=== PATIENT | female | born 1955 | race Caucasian/White ===

== ENCOUNTER 2017-07-21 20:27 | Inpatient (IN) | payer OTHER ==
[~2017-07-21] VITALS: Ht 167.6 cm; Wt 108.0 kg
[~2017-07-21 20:27] MED LIST: ALLGUNK; CNCUNK; HYDUNK; MULT-506 PO
[2017-07-21] MEDS ORDERED: SODIUM CHLORIDE 0.9% 1000ML 500 ML IV STA (20:46)
[2017-07-21] MEDS ORDERED: DILTIAZEM BOLUS / DRIP IV STA (20:46)
--- NOTE | 2017-07-21 20:49 | EMERGENCY ROOM VISIT NOTE ---
History Report prepared by Devendra: Sparkle Mccrary Under the Supervision of: Dr. Shamir Padilla M.D. First contact with patient: 20:39 Chief Complaint: SHORTNESS OF BREATH Stated Complaint: SOB AFIB History of Present Illness The patient is a 61 year old female who presents to the Emergency Room with complaints of worsening shortness of breath for the past [address] Shipman, her PCP, for her symptoms today, and was referred to the ED for possible new onset atrial fibrillation. She denies any palpitations or chest pain. She has experienced increased weakness, nausea and diaphoresis. She does not take a daily blood thinner. She does not follow regularly with Cardiology but believes she saw a Physical Education Department Chair several years ago. Source of History: patient Onset: 1 month [employer]OUND [employer] Position: chest Timing: worsening Associated Symptoms: + diaphoresis, + nausea, + weakness, No chest pain Review of Systems See HPI for pertinent positives & negatives. A total of 10 systems reviewed and were otherwise negative. Past Medical & Surgical Medical Problems: (1) Afib (2) Environmental allergies Social History Smoking Status: Former Smoker Alcohol Use: none Drug Use: none Marital Status: single Housing Status: lives alone Occupation Status: retired Current/Historical Medications Scheduled Atorvastatin (Lipitor), 40 MG PO QPM Cholecalciferol (Vitamin D), 400 UNITS PO DAILY Fluticasone Propionate (Inhala (Flovent Diskus), 2 PUFFS INH BID Meloxicam (Mobic), 15 MG PO DAILY Methylphenidate (Ritalin), 5 MG PO BID Montelukast Sodium (Singulair), 10 MG PO DAILY Multivitamins/Minerals (Mvi With Minerals), 1 TAB PO DAILY Propranolol Hcl (Propranolol Hcl), 1 TAB PO DAILY Sertraline (Zoloft), 100 MG PO DAILY Vitamin E (E-400), 400 UNITS DAILY Scheduled PRN Albuterol Hfa (Ventolin Hfa), 2 PUFFS INH Q4 PRN for SOB/Wheezing Allergies Coded Allergies: Latex (Verified Allergy, Mild, RASH, 07/21/17) Aspirin (Verified Allergy, Unknown, 09/06/10) Erythromycin (Verified Allergy, Unknown, 09/06/10) Sulfa Drugs (Verified Allergy, Unknown, 09/06/10) Physical Exam Vital Signs Date Time Temp Pulse Resp B/P (MAP) Pulse Ox O2 Delivery O2 Flow Rate FiO2 5/22/18 00:21 86 18 135/72 93 Room Air 07/21/17 22:50 75 18 114/76 95 Room Air 07/21/17 21:48 83 20 127/79 95 Room Air 07/21/17 21:40 84 20 145/100 95 Room Air 07/21/17 21:30 116 20 138/110 94 Room Air 07/21/17 20:52 116 20 167/125 97 Room Air 07/21/17 20:47 123 07/21/17 20:31 36.4 120 20 191/123 91 Room Air Physical Exam GENERAL: Patient is in no acute distress. HEENT: No acute trauma, normocephalic atraumatic, mucous membranes moist, no nasal congestion, no scleral icterus. NECK: No stridor, no adenopathy, no meningismus, trachea is midline. LUNGS: Clear to auscultation bilaterally, no wheeze, no rhonchi, breath sounds equal. HEART: Tachycardic heart rate, irregular rhythm, no murmurs ABDOMEN: Soft, nontender, bowel sounds positive, no hernias, no peritonitis. EXTREMITIES: No cyanosis or edema, full range of motion of all the joints without pain or difficulty, no signs for acute trauma. NEUROLOGIC: Oriented x 3, no acute motor or sensory deficits, no focal weakness. SKIN: No rash, no jaundice, no diaphoresis. Medical Decision & Procedures ER Provider Diagnostic Interpretation: Radiology results as stated below per my review and radiologist interpretation: CHEST ONE VIEW PORTABLE HISTORY: 61 years-old Female EVALUATE RESPIRATORY DISTRESS.DYSPNEA acute respiratory distress COMPARISON: None available TECHNIQUE: Portable AP view of the chest. FINDINGS: The cardiac silhouette is within the upper limits of normal in size. Atherosclerosis of the aorta. There is no pneumothorax, pleural effusion, focal airspace consolidation or overt pulmonary edema. The bones of the chest appear grossly intact. IMPRESSION: No acute process. The above report was generated using voice recognition software. It may contain grammatical, syntax or spelling errors. Electronically signed by: Harley Garcia M.D. 07/21/2017 9:07 PM Laboratory Results 07/21/17 20:55 Red Blood Count 5.00, Mean Corpuscular Volume 90.8, Mean Corpuscular Hemoglobin 30.0, Mean Corpuscular Hemoglobin Concent 33.0, Mean Platelet Volume 9.5, Neutrophils (%) (Auto) 70.1, Lymphocytes (%) (Auto) 18.6, Monocytes (%) (Auto) 8.4, Eosinophils (%) (Auto) 2.1, Basophils (%) (Auto) 0.4, Neutrophils # (Auto) 6.39, Lymphocytes # (Auto) 1.70, Monocytes # (Auto) 0.77, Eosinophils # (Auto) 0.19, Basophils # (Auto) 0.04 07/21/17 20:55 Test 07/21/17 20:55 07/21/17 21:50 07/22/17 00:25 07/22/17 00:53 White Blood Count 9.13 K/uL (4.8-10.8) Red Blood Count 5.00 M/uL (4.2-5.4) Hemoglobin 15.0 g/dL (12.0-16.0) Hematocrit 45.4 % (37-47) Mean Corpuscular Volume 90.8 fL (80-100) Mean Corpuscular Hemoglobin 30.0 pg (25-34) Mean Corpuscular Hemoglobin Concent 33.0 g/dl (32-36) Platelet Count 269 K/uL (130-400) Mean Platelet Volume 9.5 fL (7.4-10.4) Neutrophils (%) (Auto) 70.1 % Lymphocytes (%) (Auto) 18.6 % Monocytes (%) (Auto) 8.4 % Eosinophils (%) (Auto) 2.1 % Basophils (%) (Auto) 0.4 % Neutrophils # (Auto) 6.39 K/uL (1.4-6.5) Lymphocytes # (Auto) 1.70 K/uL (1.2-3.4) Monocytes # (Auto) 0.77 K/uL (0.11-0.59) Eosinophils # (Auto) 0.19 K/uL (0-0.5) Basophils # (Auto) 0.04 K/uL (0-0.2) RDW Standard Deviation 51.0 fL (36.4-46.3) RDW Coefficient of Variation 15.4 % (11.5-14.5) Immature Granulocyte % (Auto) 0.4 % Immature Granulocyte # (Auto) 0.04 K/uL (0.00-0.02) Anion Gap 7.0 mmol/L (3-11) Est Creatinine Clear Calc Drug Dose 88.2 ml/min Estimated GFR () 86.3 Estimated GFR (Non- 74.5 BUN/Creatinine Ratio 28.9 (10-20) Calcium Level 8.7 mg/dl (8.5-10.1) Magnesium Level 2.2 mg/dl (1.8-2.4) Total Bilirubin 0.5 mg/dl (0.2-1) Aspartate Amino Transf (AST/SGOT) 21 U/L (15-37) Alanine Aminotransferase (ALT/SGPT) 21 U/L (12-78) Alkaline Phosphatase 60 U/L (45-117) Troponin I < 0.015 ng/ml (0-0.045) Total Protein 7.7 gm/dl (6.4-8.2) Albumin 3.8 gm/dl (3.4-5.0) Globulin 3.9 gm/dl (2.5-4.0) Albumin/Globulin Ratio 1.0 (0.9-2) Thyroid Stimulating Hormone (TSH) 2.130 uIu/ml (0.300-4.500) Chemistry Specimen Hemolysis Prothrombin Time 10.4 SECONDS (9.0-12.0) Prothromb Time International Ratio 1.0 (0.9-1.1) Activated Partial Thromboplast Time 25.5 SECONDS (21.0-31.0) Partial Thromboplastin Ratio 1.0 D-Dimer 670 ug/L FEU (0-500) Urine Color YELLOW Urine Appearance CLEAR (CLEAR) Urine pH 5.0 (4.5-7.5) Urine Specific Keavy 1.020 (1.000-1.030) Urine Protein NEG (NEG) Urine Glucose (UA) NEG (NEG) Urine Ketones NEG (NEG) Urine Occult Blood NEG (NEG) Urine Nitrite NEG (NEG) Urine Bilirubin NEG (NEG) Urine Urobilinogen NEG (NEG) Urine Leukocyte Esterase TRACE (NEG) Urine WBC (Auto) 1-5 /hpf (0-5) Urine RBC (Auto) 0-4 /hpf (0-4) Urine Hyaline Casts (Auto) 1-5 /lpf (0-5) Urine Epithelial Cells (Auto) 10-20 /lpf (0-5) Urine Bacteria (Auto) NEG (NEG) Laboratory results reviewed by me. Medications Administered Medications (Trade) Dose Ordered Sig/Inderjit Route Start Time Stop Time Status Last Admin Dose Admin Sodium Chloride 500 ml @ 999 mls/hr Q31M STAT IV 07/21/17 20:46 07/21/17 21:16 DC 07/21/17 20:46 999 MLS/HR Diltiazem HCl (Cardizem Inj) 15 mg TODAY@2100 IV 07/21/17 21:00 07/21/17 23:59 DC 07/21/17 21:26 15 MG Diltiazem HCl 125 mg/Dextrose 125 ml @ 5 mls/hr Q24H PRN IV 07/21/17 21:00 07/22/17 00:57 DC 07/21/17 21:26 5 MLS/HR ECG Per My Interpretation Indication: SOB/dyspnea Rate (beats per minute): 114 Rhythm: atrial fibrillation (with RVR) Findings: no ectopy, other (No ST elevation, no PVC) ED Course 2041: The patient was evaluated in room C7. A complete history and physical exam was performed. 2045: NSS 500 ml @ 999 mls/hr IV. 2099: Diltiazem HCl 125 mg/Dextrose 125 ml @ 5 mls/hr IV, Cardizem 15 mg IV. 2144: I reevaluated the patient. She is feeling well and resting comfortably. 2153: I discussed the patients case with Dr. Obrien, [facility] Hospitalist. The patient will be further evaluated. Medical Decision The differential diagnoses considered include atrial fibrillation or atrial flutter, SVT, electrolyte imbalance, thyroid disorder, anemia and [place]. There is no leukocytosis or concerning anemia. No significant electrolyte abnormality, kidney failure or hepatitis. There is no coagulopathy. The patient appears to be in a euthyroid state. EKG shows a rapid A. fib, no acute ischemic change. Cardiac enzyme testing 1 is not consistent with acute cardiac injury. Urinalysis does not show infection. Chest film shows some cardiomegaly, no pneumonia or CHF. The patient presents in a rapid A. fib. She was given an IV saline bolus. She was given IV diltiazem and placed on an IV diltiazem drip. This regimen worked nicely. The patient feels better and her heart rate is now in the 80s- 90s. Hospitalization is required, further workup is warranted. I did speak to the patient and case management. The on-call hospitalist was consulted. Medication Reconcilliation Current Medication List: was personally reviewed by me Blood Pressure Screening Patient's blood pressure: Elevated blood pressure Blood pressure disposition: Referred to PCP (The patients elevated blood pressure will be further managed by the inpatient hospital medicine team) Consults Time Called: 2153 Consulting Physician: Ban Omalley [facility] Returned Call: 2153 I discussed the patients case with Ban Omalley. The patient will be further evaluated. Impression Primary Impression: Rapid atrial fibrillation Additional Impression: Shortness of breath Critical Care I have personally spent greater than 30 minutes of critical care time in the direct management of this patient. This includes bedside care, interpretation of diagnostic studies and testing, discussion with consultants, the patient, and family members, and other required patient management activities. This 30 minutes is in excess of all separately billable procedures. Scribe Attestation The scribe's documentation has been prepared under my direction and personally reviewed by me in its entirety. I confirm that the note above accurately reflects all work, treatment, procedures, and medical decision making performed by me. Departure Information Dispostion Being Evaluated By Hospitalist Referrals Queenie Shipman D.O. (PCP) Patient Instructions My [facility] Problem Qualifiers
[2017-07-21] MEDS ORDERED: DILTIAZEM HCL 5 MG/ML 5 ML VIAL BOLUS/OMNI IV SCH (21:00)
[2017-07-21] MEDS ORDERED: DILTIAZEM HCL INJ 125 MG in DEXTROSE 5% 100ML IV PRN (21:00)
--- NOTE | 2017-07-21 21:08 | DIAGNOSTIC IMAGING REPORT ---
CHEST ONE VIEW PORTABLE HISTORY: 61 years-old Female EVALUATE RESPIRATORY DISTRESS.DYSPNEA acute respiratory distress COMPARISON: None available TECHNIQUE: Portable AP view of the chest. FINDINGS: The cardiac silhouette is within the upper limits of normal in size. Atherosclerosis of the aorta. There is no pneumothorax, pleural effusion, focal airspace consolidation or overt pulmonary edema. The bones of the chest appear grossly intact. IMPRESSION: No acute process. The above report was generated using voice recognition software. It may contain grammatical, syntax or spelling errors. Electronically signed by: Harley Garcia M.D. 07/21/2017 9:07 PM Dictated Date/Time: 07/21/2017 9:05 PM
[2017-07-21 21:10] LABS: BASO % 0.4 %; BASO ABS # 0.04 K/uL (0-0.2); EOS % 2.1 %; EOS ABS # 0.19 K/uL (0-0.5); HEMATOCRIT 45.4 % (37-47); IG# 0.04 K/uL (0.00-0.02); LYMPH % 18.6 %; MEAN CELL VOLUME 90.8 fL (80-100); MEAN PLATELET VOLUME 9.5 fL (7.4-10.4); MONO % 8.4 %; MONO ABS # 0.77 K/uL (0.11-0.59); NEUT % 70.1 %; NEUT ABS # 6.39 K/uL (1.4-6.5); PLATELET COUNT 269 K/uL (130-400); RED CELL DISTRIBUTION WIDTH CV 15.4 % (11.5-14.5); WHITE BLOOD COUNT 9.13 K/uL (4.8-10.8)
[2017-07-21 21:38] LABS: ALBUMIN 3.8 gm/dl (3.4-5.0); ALT/SGPT 21 U/L (12-78); AST/SGOT 21 U/L (15-37); BLOOD UREA NITROGEN 24 mg/dl (7-18); CALCIUM 8.7 mg/dl (8.5-10.1); CARBON DIOXIDE 26 mmol/L (21-32); CREATININE 0.84 mg/dl (0.60-1.20); GLUCOSE 124 mg/dl (70-99); POTASSIUM 4.5 mmol/L (3.5-5.1); SODIUM 139 mmol/L (136-145)
[2017-07-21 21:40] LABS: ALKALINE PHOSPHATASE 60 U/L (45-117); TOTAL PROTEIN 7.7 gm/dl (6.4-8.2)
[2017-07-21] MEDS ORDERED: VITACAP37 (22:09)
[2017-07-21] MEDS ORDERED: MONT1TAB3 PO (22:09)
[2017-07-21] MEDS ORDERED: MULT-513 PO (22:09)
[2017-07-21] MEDS ORDERED: FLUT1AER5 INH (22:09)
[2017-07-21] MEDS ORDERED: SERT-234 PO (22:09)
[2017-07-21] MEDS ORDERED: ATOR-24 PO (22:09)
[2017-07-21] MEDS ORDERED: MELO-84 PO (22:09)
[2017-07-21] MEDS ORDERED: VNTHFA/IN INH (22:09)
[2017-07-21] MEDS ORDERED: CHOL400T PO (22:09)
[2017-07-21] MEDS ORDERED: METH5TAB4 PO (22:09)
[2017-07-21] MEDS ORDERED: PROP40TA5 PO (22:09)
[2017-07-21 22:20] LABS: PTT PATIENT 25.5 SECONDS (21.0-31.0)
[2017-07-21] MEDS ORDERED: OPTIRAY 320 IV PRN (23:30)
[2017-07-22] VITALS (10 sets, daily range): BP systolic 130–173; BP diastolic 86–112; PULSE 89–118; TEMP 36.6–36.7; O2SAT 93–97; BMI 38.7
[2017-07-22] MEDS ORDERED: METOPROLOL SUCC 25MG EXT REL TAB PO ONE ×2 (00:55→09:45)
[2017-07-22] MEDS ORDERED: LORAZEPAM 2 MG/ML 1 ML VIAL IV PRN (01:00)
[2017-07-22] MEDS ORDERED: MoRPHine SULFATE 4 MG/ML 1 ML CARP\\VIAL IV PRN (01:00)
[2017-07-22] MEDS ORDERED: TRAMADOL HCL 50 MG TAB PO PRN (01:00)
[2017-07-22] MEDS ORDERED: PROCHLORPERAZINE INJ 5 MG in SYRINGE 4 ML IV PRN (01:00)
[2017-07-22] MEDS ORDERED: NITROGLYCERIN 0.4 MG SL PER TAB CHARGE SL PRN (01:00)
[2017-07-22] MEDS ORDERED: HEPARIN 25000 UNIT/500 ML D5W ONE (01:05)
[2017-07-22] MEDS ORDERED: METOPROLOL SUCC 50MG EXT REL TAB ONE (01:11)
[2017-07-22] MEDS: HEPARIN 25,000 UNIT/500ML D5W 500 ML IV SCH ×2 (01:45→17:18)
[2017-07-22] MEDS: SODIUM CHLORIDE 0.9% 1000ML 1,000 ML IV SCH ×2 (02:03→17:13)
[2017-07-22 04:27] LABS: BASO % 0.2 %; BASO ABS # 0.02 K/uL (0-0.2); EOS % 2.2 %; EOS ABS # 0.18 K/uL (0-0.5); HEMATOCRIT 44.3 % (37-47); HEMOGLOBIN 14.3 g/dL (12.0-16.0); IG# 0.01 K/uL (0.00-0.02); LYMPH % 22.9 %; LYMPH ABS # 1.87 K/uL (1.2-3.4); MEAN CELL VOLUME 92.5 fL (80-100); MEAN CORPUSCULAR HEMOGLOBIN 29.9 pg (25-34); MEAN CORPUSCULAR HGB CONC 32.3 g/dl (32-36); MEAN PLATELET VOLUME 10.3 fL (7.4-10.4); MONO % 8.4 %; MONO ABS # 0.69 K/uL (0.11-0.59); NEUT % 66.2 %; NEUT ABS # 5.41 K/uL (1.4-6.5); PLATELET COUNT 227 K/uL (130-400); RED CELL DISTRIBUTION WIDTH CV 15.4 % (11.5-14.5); RED CELL DISTRIBUTION WIDTH SD 52.4 fL (36.4-46.3); WHITE BLOOD COUNT 8.18 K/uL (4.8-10.8)
--- NOTE | 2017-07-22 04:35 | HISTORY & PHYSICAL EXAMINATION ---
DATE OF ADMISSION: 07/22/2017 PRIMARY CARE PHYSICIAN: Queenie Shipman DO CHIEF COMPLAINT: Shortness of breath. HISTORY OF PRESENT ILLNESS: History obtained from patient and records. Medical history significant for hypertension, past tobacco abuse, history of mitral regurgitation, hyperlipidemia, migraine as per records, history of HCV status post treatment, attention deficit disorder, LILI as per records. Last month, patient noted shortness of breath especially on exertion. Denies weight gain. Denies chest pain. some wheezing, which attributes to possible smoker's cough. Loose stools today. No abdominal pain. Seen at PCP's office today for an appointment. EKG done showed atrial fibrillation. Patient was sent to the Emergency Room. At the Emergency Room, heart rate noted to be 120s. IV Cardizem started in the ER. MEDICAL HISTORY: As above. PREVIOUS SURGERIES: She has had appendectomy, breast biopsy, ovarian cyst surgery. HOME MEDICATIONS: Propranolol, Lipitor, Flovent, Mobic, Singulair, Ritalin, multivitamins, Zoloft ALLERGIES: ASPIRIN, ERYTHROMYCIN, LATEX, SULFA. FAMILY HISTORY: Blood clots, migraine, history of breast cancer PERSONAL AND SOCIAL HISTORY: Past smoker. No chronic intake of alcoholic beverages. 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 REVIEW OF SYSTEMS: As per HPI, all 10 systems reviewed, all other ROS negative. PHYSICAL EXAMINATION: VITAL SIGNS: Blood pressure was noted to be 191/120, later 130/80, pulse rate 120 later 84, RR 26 T 37 O2 sats 95 on room air. GENERAL: Noted to be slightly anxious, no respiratory distress, obese. SKIN: Normal color, warm. HEENT: [place] palpebral conjunctivae. No ptosis. Dry mucosa. NECK: Short, supple. CHEST: Decreased breath sounds. Occasional wheeze . HEART: irregular, systolic murmur. ABDOMEN: Some distention, nontender. EXTREMITIES: No edema noted. No tenderness. No gross deformity. NEUROLOGIC: Coherent, no gross focality. LABORATORIES: Hemoglobin was noted to be 15, white blood cells 10 platelets 240. Sodium 136 potassium 3.8, chloride 106, CO2 26, BUN 20, creatinine 0.8, glucose 134. Troponin negative CT chest initial read no pulmonary embolism. EKG as per my interpretation, rate 115, AFib, RVR, right axis deviation, LFPB, no ischemia . ASSESSMENT: 1. SOB symptoms for 1 month Possibly from new onset atrial fibrillation possibly from uncontrolled high blood pressure. Rule out COPD w/ intermittent wheezing symptoms, past tobacco abuse. 2. Hyperglycemia ro DM. 3. HCV sp tx 4. LILI/CPAP noncompliance . 5. Diarrhea rule out C. difficile 6. ADHD on Ritalin PLAN: PCU. Metoprolol to replace patient's propranolol (for migraine prophylaxis) for rate control IV heparin for thromboembolic prophylaxis. TTE, Cardio consult RE new onset afib. Outpatient PFTs Check hemoglobin A1c stool cdif DVT prophylaxis, IV Heparin. Full code. MTDD
[2017-07-22 04:57] LABS: BLOOD UREA NITROGEN 22 mg/dl (7-18); CALCIUM 8.5 mg/dl (8.5-10.1); CARBON DIOXIDE 30 mmol/L (21-32); CREATININE 0.84 mg/dl (0.60-1.20); GLUCOSE 110 mg/dl (70-99); SODIUM 140 mmol/L (136-145)
[2017-07-22 07:30] LABS: PTT PATIENT 57.5 SECONDS (21.0-31.0)
--- NOTE | 2017-07-22 07:36 | DIAGNOSTIC IMAGING REPORT ---
CHEST CTA for PULMONARY ARTERIES CT DOSE: 718.24 mGy.cm HISTORY: Fatigue. Atrial fibrillation. TECHNIQUE: Multiaxial CT images of the chest were performed following the intravenous administration of contrast to evaluate the pulmonary arteries. Maximal intensity projection images were also obtained. A dose lowering technique was utilized adhering to the principles of ALARA. COMPARISON STUDY: None. FINDINGS: No pleural or pericardial effusions. The heart is mildly enlarged. Normal caliber thoracic aorta. No evidence for aortic dissection. Of note, the descending thoracic ureter is not well opacified to evaluate for a dissection. No filling defects within the pulmonary arteries to suggest pulmonary embolus. Probably calcified 12 mm nodule within the left thyroid lobe. No mediastinal or hilar lymphadenopathy. Mild diffuse thickening of the esophagus. This favors a mild esophagitis. The visualized liver, spleen, and adrenal glands are unremarkable. No fractures. No pneumothorax. The central airways are patent. Mild emphysema. Linear densities within the lingula favor subsegmental atelectasis. Tiny fat-containing left-sided Bochdalek hernia. A 5 mm right lower lobe pulmonary nodule on image 40. No focal lung consolidations to suggest pneumonia. IMPRESSION: 1. No evidence for pulmonary embolus. 2. Mild emphysema. 3. Cardiomegaly. 4. Mild thickening of the esophagus suggestive of a nonspecific esophagitis. 5. A 5 mm right lower lobe indeterminate pulmonary nodule. Please refer to the chart below. Please refer to below summary of Fleischner criteria recommendations for follow-up of incidental CT nodules (Delisa Tucker, Guidelines for management of small pulmonary nodules detected on CT scans: A statement from the Fleischner Society, Radiology 237: [phone].) SOLID NODULES Solitary nodule size: <6 mm * Low risk patients: no follow-up needed * high risk patients: optional CT at 12 months Solitary nodule size: 6-8 mm * Low risk patients: follow-up at 6-12 months, then consider further follow-up at 18-24 months * high risk patients: initial follow-up CT at 6-12 months and then at 18-24 months if no change Solitary nodule size: >8 mm * either low or high risk patients - consider follow-up CT at 3 months, and/or CT-PET, and/or biopsy Multiple nodules size: <6 mm * Low risk patients: no routine follow-up * high risk patients: optional CT at 12 months Multiple nodules size: 6-8 mm * Low risk patients: follow-up at 3-6 months, then consider further follow-up at 18-24 months * high risk patients: follow-up at 3-6 months, then at 18-24 months if no change Multiple nodules size: >8 mm * Low risk patients: follow-up at 3-6 months, then consider further follow-up at 18-24 months * high risk patients: follow-up at 3-6 months, then at 18-24 months if no change Note: newly detected indeterminate nodule in persons 35 years of age or older. * Low risk patients: minimal or absent history of smoking and/or other known risk factors * high risk patients: history of smoking or of other known risk factors (e.g. first degree relative with lung cancer, or exposure to asbestos, radon, uranium) * if a nodule up to 8 mm is partly solid or is ground glass further follow-up is required after 24 months to exclude possible slow growing adenocarcinoma (MARKO) SUBSOLID NODULES Solitary pure ground-glass nodule * nodule size <6 mm - no CT follow-up required * nodule size >=6 mm - follow-up CT at 6-12 months, then every 2 years until 5 years Solitary part-solid nodule * nodule size <6 mm - no CT follow-up required * nodule size >=6 mm - follow-up CT at 3-6 months. If unchanged, and solid component remains <6 mm, then annual follow-up for 5 years Multiple subsolid nodules * nodule size <6 mm - follow-up CT at 3-6 months, consider further follow-up at 2 and 4 years if stable * nodule size >=6 mm - follow-up CT at 3-6 months, subsequent management based on the most suspicious nodule(s) Electronically signed by: Alexis Herzog M.D. 07/22/2017 7:35 AM Dictated Date/Time: 07/22/2017 7:26 AM
[2017-07-22] MEDS ORDERED: PERFLUTREN LIPID MICROSPHERE (DEFINITY) IV ONE (08:52)
[2017-07-22] MEDS: MONTELUKAST SOD 10 MG TAB PO SCH (09:03)
[2017-07-22] MEDS: CEROVITE ADV FORMULA TAB PO SCH (09:03)
[2017-07-22] MEDS: SERTRALINE HCL 100 MG TAB PO SCH (09:03)
[2017-07-22 10:24] LABS: HEMOGLOBIN A1C 6.7 % (4.5-5.6)
--- NOTE | 2017-07-22 10:46 | Cardiology Consultation ---
Cardiology Consultation Date of Consultation: July 22, 2017 Requesting Physician: Dr. Obrien Attending Neuro Intensivist Physician: Dr. 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 She is also treated for ADD with Ritalin, and depression with Zoloft. She was evaluated by Dr. Lay in 2016 for evaluation of SOB, hypertension and prolonged QT. She underwent exercise stress echo which demonstrated preserved LV function, mild MR, but was non diagnostic for ischemia due to failure to achieve target HR. She was ordered to have a dobutamine stress echo, but failed to keep this appointment and f/u appointments. Patient reports worsening SOB with exertional activities x 2-4 weeks. No associated cough, fever or chills. No chest pain with activity. No palpitations or tachypalpitations noted. No dizziness, syncope or near syncope. No orthopnea , PND or edema. She presented to PCP office yesterday with concerns regarding dyspnea on exertion. She was found to have atrial fibrillation with mildly elevated ventricular rates on EKG. She was sent to ER for evaluation and work up. In ER, heart rates improved with IV diltiazem and then transitioned to oral metoprolol succinate. Home dose propranolol (used for migraines and HTN) was discontinued. Cardiac enzymes unremarkable. Chest CT was negative for pulmonary embolus with evidence of underlying emphysema and incidental pulm nodule. She was started on IV heparin for anticoagulation. Blood glucose readings have been elevated. No known history of DM. A1C pending. At time of consult patient feeling well, laying in bed. No SOB at rest. Reports dyspnea with ambulation to rest room. No chest pain. BP is elevated this AM. No headaches or vision changes. Offers no complaints at this time. Patient reports recent referral to (Evi Cho PA-C) Past Medical/Surgical History Problem List: Medical History: 1. Dyslipidemia 2. Prior retinal artery occlusion 3. Hypertension 4. Obesity 5. History of prolonged QT 6. Prior tobacco abuse 7. migraine 8. ADD Surgical History: 1. Appendectomy 2. Breast biopsy 3. Ovarian biopsy (Evi Cho PA-C) Social History Smoking Status: Former Smoker Drug Use: none Marital Status: single Occupation: retired (Evi Cho PA-C) Review Of Systems General: The patient denies weight change, night sweats, fever, chills. Head: The patient denies headache and prior head trauma. Cardiovascular: The patient denies chest pain or chest discomfort, dyspnea on exertion, palpitations, PND, orthopnea, edema, spontaneous shortness of breath, syncope and near syncope. Pulmonary: The patient denies cough, wheeze, pleurisy, hemoptysis, sputum, and excessive snoring. Gastrointestinal: The patient denies nausea, vomiting, diarrhea, constipation, bloating, hematemesis, hematochezia, and abdominal pain. Skin: The patient denies diaphoresis and rash. Musculoskeletal: The patient denies joint pain, joint swelling, myalgia, back pain, neck pain and prior injuries. Neurological: The patient denies prior stroke and seizures (Evi Cho PA-C) Allergies Coded Allergies: Latex (Verified Allergy, Mild, RASH, 07/21/17) Aspirin (Verified Allergy, Unknown, 09/06/10) Erythromycin (Verified Allergy, Unknown, 09/06/10) Sulfa Drugs (Verified Allergy, Unknown, 09/06/10) Medications Reported Home Medications Medications Dose Route/Sig Max Daily Dose Days Date Category Mvi With Minerals (Multivitamins/Minerals) Tab 1 Tab PO DAILY 07/21/17 Reported Vitamin D (Cholecalciferol) 400 Unit Tab 400 Units PO DAILY 07/21/17 Reported E-400 (Vitamin E) 400 Unit Cap 400 Units DAILY 07/21/17 Reported Mobic (Meloxicam) 15 Mg Tab 15 Mg PO DAILY 07/21/17 Reported Propranolol Hcl 40 Mg Tab 1 Tab PO DAILY 30 07/21/17 Reported Zoloft (Sertraline HCl) 100 Mg Tab 100 Mg PO DAILY 07/21/17 Reported Singulair (Montelukast Sodium) 10 Mg Tab 10 Mg PO DAILY 07/21/17 Reported Ritalin (Methylphenidate HCl) 5 Mg Tab 5 Mg PO BID 07/21/17 Reported Flovent Diskus (Fluticasone Propionate (Inhala) 100 Mcg/Blist Aer 2 Puffs INH BID 07/21/17 Reported Lipitor (Atorvastatin Calcium) 40 Mg Tab 40 Mg PO QPM 07/21/17 Reported Ventolin Hfa (Albuterol) 200 Puffs/16856 Mcg Aers 2 Puffs INH Q4 PRN 07/21/17 Reported (Evi Cho PA-C) Physical Exam Vital Signs (Last 8hrs): Last 8 Hrs Date Time Temp Pulse Resp B/P (MAP) Pulse Ox O2 Delivery O2 Flow Rate FiO2 07/22/17 04:23 158/86 (110) 07/22/17 04:00 36.7 89 22 173/112 (132) 97 Room Air 07/22/17 04:00 Room Air 07/22/17 01:56 36.6 95 20 156/88 93 Room Air 07/22/17 01:18 76 18 120/51 95 Room Air General Appearance: Alert and Oriented x3. NAD. Obese. Head: Normocephalic Atraumatic. Eyes: PERRLA, EOMI, conjunctiva and sclera clear Neck: Supple. No carotid bruits noted. No JVD. No HJD. Respiratory: Decreased breath sounds, diffuse. No rales or wheeze Cardiovascular: Irregularly irregular. No audible murmurs. Abdomen: Normal bowel sounds, soft nontender. no abdominal bruits. Extremities: No edema, no clubbing or cyanosis. distal pulses 2/4 bilaterally. Neuro: No focal deficits. Psychiatric: Normal affect. (Evi Cho PA-C) Data Last 24 Hours Test 07/21/17 20:55 07/21/17 21:50 07/22/17 00:25 07/22/17 04:13 White Blood Count 9.13 K/uL 8.18 K/uL Red Blood Count 5.00 M/uL 4.79 M/uL Hemoglobin 15.0 g/dL 14.3 g/dL Hematocrit 45.4 % 44.3 % Mean Corpuscular Volume 90.8 fL 92.5 fL Mean Corpuscular Hemoglobin 30.0 pg 29.9 pg Mean Corpuscular Hemoglobin Concent 33.0 g/dl 32.3 g/dl Platelet Count 269 K/uL 227 K/uL Mean Platelet Volume 9.5 fL 10.3 fL Neutrophils (%) (Auto) 70.1 % 66.2 % Lymphocytes (%) (Auto) 18.6 % 22.9 % Monocytes (%) (Auto) 8.4 % 8.4 % Eosinophils (%) (Auto) 2.1 % 2.2 % Basophils (%) (Auto) 0.4 % 0.2 % Neutrophils # (Auto) 6.39 K/uL 5.41 K/uL Lymphocytes # (Auto) 1.70 K/uL 1.87 K/uL Monocytes # (Auto) 0.77 K/uL 0.69 K/uL Eosinophils # (Auto) 0.19 K/uL 0.18 K/uL Basophils # (Auto) 0.04 K/uL 0.02 K/uL RDW Standard Deviation 51.0 fL 52.4 fL RDW Coefficient of Variation 15.4 % 15.4 % Immature Granulocyte % (Auto) 0.4 % 0.1 % Immature Granulocyte # (Auto) 0.04 K/uL 0.01 K/uL Sodium Level 139 mmol/L 140 mmol/L Potassium Level 4.5 mmol/L 4.0 mmol/L Chloride Level 106 mmol/L 107 mmol/L Carbon Dioxide Level 26 mmol/L 30 mmol/L Anion Gap 7.0 mmol/L 3.0 mmol/L Blood Urea Nitrogen 24 mg/dl 22 mg/dl Creatinine 0.84 mg/dl 0.84 mg/dl Est Creatinine Clear Calc Drug Dose 88.2 ml/min 85.5 ml/min Estimated GFR () 86.3 85.7 Estimated GFR (Non- 74.5 74.0 BUN/Creatinine Ratio 28.9 26.5 Random Glucose 124 mg/dl 110 mg/dl Calcium Level 8.7 mg/dl 8.5 mg/dl Magnesium Level 2.2 mg/dl Total Bilirubin 0.5 mg/dl Aspartate Amino Transf (AST/SGOT) 21 U/L Alanine Aminotransferase (ALT/SGPT) 21 U/L Alkaline Phosphatase 60 U/L Troponin I < 0.015 ng/ml < 0.015 ng/ml Total Protein 7.7 gm/dl Albumin 3.8 gm/dl Globulin 3.9 gm/dl Albumin/Globulin Ratio 1.0 Thyroid Stimulating Hormone (TSH) 2.130 uIu/ml Chemistry Specimen Hemolysis Prothrombin Time 10.4 SECONDS Prothromb Time International Ratio 1.0 Activated Partial Thromboplast Time 25.5 SECONDS Partial Thromboplastin Ratio 1.0 D-Dimer 670 ug/L FEU Urine Color YELLOW Urine Appearance CLEAR Urine pH 5.0 Urine Specific [place] 1.020 Urine Protein NEG Urine Glucose (UA) NEG Urine Ketones NEG Urine Occult Blood NEG Urine Nitrite NEG Urine Bilirubin NEG Urine Urobilinogen NEG Urine Leukocyte Esterase TRACE Urine WBC (Auto) 1-5 /hpf Urine RBC (Auto) 0-4 /hpf Urine Hyaline Casts (Auto) 1-5 /lpf Urine Epithelial Cells (Auto) 10-20 /lpf Urine Bacteria (Auto) NEG Test 07/22/17 07:00 Activated Partial Thromboplast Time 57.5 SECONDS Partial Thromboplastin Ratio 2.2 Imaging: Chest CT on admission, per report: IMPRESSION: 1. No evidence for pulmonary embolus. 2. Mild emphysema. 3. Cardiomegaly. 4. Mild thickening of the esophagus suggestive of a nonspecific esophagitis. 5. A 5 mm right lower lobe indeterminate pulmonary nodule. Please refer to the chart below. Chest xray on admission, per report: IMPRESSION: No acute process. EKG this AM, 07/22, Atrial fibrillation with controlled rate at 85 bpm, nonspecific ST/T wave abnormality. EKG on arrival to ER yesterday: Atrial fibrillation with rapid ventricular response at 114 bpm Mild non specific ST/T wave abnormality in inferior leads EKG at PCP office yesterday reviewed: Atrial fibrillation with rapid ventricular response at 104 bpm Right axis deviation Abnormal ECG Telemetry reviewed: Atrial fibrillation, occ PVC with borderline rate control, ranging 85-115. Prior Data: Exercise Stress echo report reviewed, dated 06/2015: Interpretation Summary The examination is inadequate to evaluate the referral indication. STRESS STUDY: The stress echo is indeterminate for inducible ischemia. The low heart rate response and low workload achieved reduces the sensitivity of this test for the detection of coronary artery disease or ischemia. The exercise test was terminated due to patient complaint of " shortness of breath" and "legs heavy". No chest discomfort was reported. The resting heart rate of 72 beats per minute mis to a maximal heart rate of 117 beats per minute. This value represents 73% of the maximal age predicted heart rate. The heart rate response was somewhat attenuated given the patient 's perceived subjective level of exertion. Mild resting hypertension was present, with diastolic hypertension noted during exercise. Exercise capacity is markedly below average . RESTING STUDY: The LV wall thickness is mildly increased (concentric). The qualitative LV ejection fraction is 60-64% (normal). The left atrium is mildly enlarged. The left ventricular diastolic function is moderately abnormal (grade II). Mild aortic valve sclerosis is present. There is mild mitral annular calcification. (Evi Cho PA-C) Assessment & Plan 1. New onset atrial fibrillation, with RVR. Duration unknown, possibly 2-4 weeks. 2. Hypertension - uncontrolled this AM 3. Dyslipidemia - on atorvastatin 4. Prior retinal artery occlusion 5. Elevated Glucose readings - probable DM. 6. ADD 7. History of prolonged QT - PLAN: Increase metoprolol succinate to 25 mg BID for rate control Continue IV heparin for anticoagulation. CHADSVASC score of 3-4 (female, HTN, prior vascular disease, and possible DM.). Will need bi analyst anticoagulation. Coumadin vs DOAC discussed. Patient likely candidate for Eliquis 5 mg BID pending cost. After 4 weeks of appropriate anticoagulation, can discuss elective cardioversion. Pending BP response to metoprolol. May benefit from MAYRA/ARB therapy. Echo report pending. Needs to discontinue Ritalin due to arrhythmias. Case discussed with Dr. Romero. Will follow (Evi Cho PA-C) CARDIOLOGY ATTENDING ADDENDUM: The patient was seen and personally examined. Agree with Evi Cho PA-C's findings and plans as documented above with addition as noted below. S: patient seen in ICU room 111, as a telemetry overflow patient. Denies chest pain, SOB, or palpitations at reast. Had metoprolol succinate 25 mg about 45 minutes ago, Telemetry reveals AF with V rate from 98-120 bpm at present resting in bed. Heparin gtt infusing; Exam: Irregular rhythm, no murmurs No edema No focal neurological deficit Data: EKG and telemetry as above. TTE reveals mild global LV hypokinesis with LVEF in the range of 45-50%. Impression: AF-rate control . Plan for metoprolol tartrate for now, 25 mg PO QID, next dose about 6 hours after recent dose. medical coding specialist will consider succinate, however, tartare is immediate release as I favor tartrate for acute rate control. Continue heparin for stroke prophylaxis. Asked case managment to check out of pocket cost for outpatient Eliquis, if affordable will transition her to Eliquis. Plan for rate control, anticoag, and perhaps DCCV after on anticoagulation for 3 -4 weeks. Will need to consider ischemic work up in future as outpatient for additional cause of shortness of breath given CAD risk factors. Will need pharm nuclear study given inability to reach target HR with exercise in the past, and now the AF. (Rodo Romero,Joni.O.)
--- NOTE | 2017-07-22 10:50 | ECHOCARDIOGRAM REPORT ---
*NOTICE TO RECEIVING CONSTITUTION PARTY AGENCY This information is strictly Confidential and protected under [place] law. [place] law prohibits you from making any further disclosure of this information unless further disclosure is expressly permitted by the written consent of the person to whom it pertains or is authorized by law. A general authorization for the release of medical or other information is not sufficient for this purpose. Hospital accepts no responsibility if the information is made available to any other person, INCLUDING THE PATIENT. Interpretation Summary * Name: PALLAVI WIGGINS Study Date: 07/22/2017 08:21 AM BP: 158/86 mmHg * Patient Location: .MSICU\S\E111\S\1 HR: 89 * : 1955 (M/d/yyy) Gender: Female Height: 67 in * Age: 62 yrs Ethnicity: [place] Weight: 239 lb * Ordering Physician: Jovanni Obrien * Referring Physician: Self, Referred * Performed By: Radha Gamble RDCS * * Reason For Study: Atrial Fibrillation * BSA: 2.2 m2 * The study was technically adequate. * There is no comparison study available. * -- Conclusions -- * The rhythm is atrial fibrillation with intermittent rapid ventricular response. * Ejection Fraction = 45-50%. * There is mild global hypokinesis of the left ventricle. * There is moderate concentric left ventricular hypertrophy. * The left atrium is moderately dilated. * Aortic valve sclerosis mild, without significant aortic valvular stenosis. * There is moderate mitral annular calcification. * There is mild mitral regurgitation. * Dialted IVC with normal respiratory variation suggesting a right atrial pressure of 8mmHg. Procedure Details * A complete two-dimensional transthoracic echocardiogram was performed (2D, M-mode, Doppler and color flow Doppler). * The study was technically difficult. * The study was technically difficult, but visualization was adequate with the administration of Definity ultrasound contrast. * There were technical limitations due to patient'sbody habitus * A contrast injection of Definity was performed to improve assessment of LV function. * Contrast was injected into an intravenous site in the right arm. * One vial of Definity ultrasound contrast was diluted in normal saline to a total volume of 10 ml. A total of '2' ml of solution was administered during imaging. * Lot # [id number] of Definity utilized for procedure. * Expiration date 1Apr19. * The attending nurse who injected the contrast agent was JOESPH Arevalo. Left Ventricle * The left ventricle is normal in size. * The rhythm is atrial fibrillation with intermittent rapid ventricular response. * There is no thrombus. * There is moderate concentric left ventricular hypertrophy. * Ejection Fraction = 45-50%. * Left ventricular systolic function is mildly reduced. * There is mild global hypokinesis of the left ventricle. Right Ventricle * The right ventricle is not well visualized. * The right ventricular systolic function is normal as assessed by tricuspid annular plane systolic excursion (TAPSE) (normal >1.5 cm). Atria * The left atrium is moderately dilated. * Right atrial size is normal. * There is no evidence of atrial septal defect, but resolution does not allow assessment for a patent foramen ovale. Mitral Valve * There is moderate mitral annular calcification. * There is no mitral valve stenosis. * There is mild mitral regurgitation. Tricuspid Valve * The tricuspid valve is normal. * There is no tricuspid stenosis. * There is mild tricuspid regurgitation. Aortic Valve * The aortic valve is trileaflet. * Aortic valve sclerosis mild, without significant aortic valvular stenosis. * Aortic stenosis is absent. * There is no significant aortic regurgitation. Pulmonic Valve * The pulmonary valve is not well seen, but the Doppler examination is normal without significant regurgitation or stenosis. Great Vessels * The aortic root is normal size. Pericardium/Pleural * There is no pericardial effusion. Great Vessels * Dialted IVC with normal respiratory variation suggesting a right atrial pressure of 8mmHg. Left Ventricular Diastolic Function * Abnormal diastolic function. MMode 2D Measurements and Calculations IVSd 1.5 cm IVSs 1.7 cm LVIDd 3.5 cm LVIDs 2.8 cm LVPWd 1.4 cm LVPWs 1.7 cm IVS/LVPW 1.1 FS 20.8 % EDV(Teich) 51.0 ml ESV(Teich) 29.0 ml EF(Teich) 43.3 % EDV(cubed) 43.0 ml ESV(cubed) 21.4 ml EF(cubed) 50.2 % % IVS thick 14.5 % % LVPW thick 28.2 % LV mass(C)d 179.1 grams LV mass(C)dI 82.1 grams/m\S\2 LV mass(C)s 184.4 grams LV mass(C)sI 84.5 grams/m\S\2 SV(Teich) 22.1 ml SI(Teich) 10.1 ml/m\S\2 SV(cubed) 21.6 ml SI(cubed) 9.9 ml/m\S\2 Ao root diam 3.2 cm Ao root area 8.2 cm\S\2 ACS 1.9 cm LA dimension 4.8 cm LA/Ao 1.5 LVAd ap4 26.1 cm\S\2 LVLd ap4 7.9 cm EDV(MOD-sp4) 74.0 ml EDV(sp4-el) 73.1 ml LVAs ap4 17.7 cm\S\2 LVLs ap4 7.4 cm ESV(MOD-sp4) 38.4 ml ESV(sp4-el) 36.1 ml EF(MOD-sp4) 48.1 % EF(sp4-el) 50.6 % LVAd ap2 29.2 cm\S\2 LVLd ap2 9.2 cm EDV(MOD-sp2) 82.4 ml EDV(sp2-el) 78.7 ml LVAs ap2 20.3 cm\S\2 LVLs ap2 8.1 cm ESV(MOD-sp2) 44.3 ml ESV(sp2-el) 43.4 ml EF(MOD-sp2) 46.2 % EF(sp2-el) 44.8 % LVLd %diff 13.9 % EDV(MOD-bp) 84.0 ml LVLs %diff 8.6 % ESV(MOD-bp) 43.0 ml EF(MOD-bp) 48.8 % SV(MOD-sp4) 35.6 ml SI(MOD-sp4) 16.3 ml/m\S\2 SV(MOD-sp2) 38.1 ml SI(MOD-sp2) 17.4 ml/m\S\2 SV(MOD-bp) 41.0 ml SI(MOD-bp) 18.8 ml/m\S\2 SV(sp4-el) 37.0 ml SI(sp4-el) 17.0 ml/m\S\2 SV(sp2-el) 35.3 ml SI(sp2-el) 16.2 ml/m\S\2 Doppler Measurements and Calculations MV E max nika 95.1 cm/sec MV dec time 0.14 sec Ao V2 max 103.4 cm/sec Ao max PG 4.4 mmHg Ao max PG (full) 1.9 mmHg LV V1 max PG 2.5 mmHg LV V1 max 78.6 cm/sec PA V2 max 69.7 cm/sec PA max PG 1.9 mmHg TR max nika 224.8 cm/sec
[2017-07-22] MEDS: ACETAMINOPHEN 325 MG TAB PO PRN (12:09)
[2017-07-22] MEDS: METHYLPHENIDATE HCL 5 MG TAB PO SCH (16:37)
[2017-07-22] MEDS: METOPROLOL TARTRATE 25 MG TAB PO SCH ×2 (16:38→21:05)
[2017-07-22] MEDS ORDERED: FLVHFA110 INH (19:10)
[2017-07-22] MEDS: FLUTICASONE HFA 220 MCG INHALER INH SCH (21:00)
[2017-07-22] MEDS ORDERED: METOPROLOL SUCC 25MG EXT REL TAB PO SCH (21:00)
[2017-07-22] MEDS: ATORVASTATIN 40 MG TAB PO SCH (21:05)
--- NOTE | 2017-07-22 21:28 | Progress Note ---
Progress Note Date of Service July 22, 2017. Progress Note Patient seen with family at bedside Comfortable, in good spirits Denies active chest pain, shortness of breath, dizziness, palpitations No bleeding Remains in A. fib heart rate in the low 100s Echo noted EF on 40% Vital signs noted Heart rate 100s, regular irregular rhythm Clear breath sounds bilaterally No rales wheezes NEW ONSET A. FIB Metoprolol be changed to respiratory treatment 4 times daily On heparin drip, went to transition to Eliquis upon discharge Discussed case with Dr. Romero Monitor in telemetry DIABETES TYPE 2 A1c 6.7 This is a new diagnosis We will consult floral decorator Place on insulin sliding scale for now Need to be started on low-dose metformin on discharge Other diagnoses and plan of care per Dr. Moyer's notes Kelsea RODRIGUEZ
[2017-07-22] MEDS ORDERED: DEXTROSE 50% 50 ML SYR IV PRN (21:30)
[2017-07-22] MEDS ORDERED: GLUCAGON FOR INJ 1 MG VIAL SQ PRN (21:30)
[2017-07-22] MEDS ORDERED: GLUCOSE 10 TABS/TUBE PO PRN (21:30)
[2017-07-22] MEDS ORDERED: CARBOHYDRATES FOR HYPOGLYCEMIA PO PRN (21:30)
[2017-07-22] MEDS ORDERED: GLUCOSE 40% GEL 15 GM TUBE PO PRN (21:30)
[2017-07-22] MEDS ORDERED: PHARMACY GLYCEMIC MGMT CONSULT PRN (21:59)
[2017-07-22] MEDS: INSULIN ASPART 100 UNITS/ML 3 ML PEN SC SCH (22:00)
[2017-07-23] VITALS (12 sets, daily range): BP systolic 101–172; BP diastolic 71–127; PULSE 88–98; TEMP 36.4–36.9; O2SAT 92–96; Ht 167.6 cm; Wt 108.0 kg
[2017-07-23 06:04] LABS: BASO % 0.2 %; BASO ABS # 0.01 K/uL (0-0.2); EOS % 2.9 %; EOS ABS # 0.18 K/uL (0-0.5); HEMOGLOBIN 13.7 g/dL (12.0-16.0); IG# 0.02 K/uL (0.00-0.02); LYMPH % 23.9 %; LYMPH ABS # 1.48 K/uL (1.2-3.4); MEAN CELL VOLUME 91.5 fL (80-100); MEAN CORPUSCULAR HEMOGLOBIN 29.1 pg (25-34); MEAN CORPUSCULAR HGB CONC 31.9 g/dl (32-36); MEAN PLATELET VOLUME 9.9 fL (7.4-10.4); MONO % 10.8 %; MONO ABS # 0.67 K/uL (0.11-0.59); NEUT % 61.9 %; NEUT ABS # 3.82 K/uL (1.4-6.5); PLATELET COUNT 206 K/uL (130-400); RED CELL DISTRIBUTION WIDTH CV 15.4 % (11.5-14.5); WHITE BLOOD COUNT 6.18 K/uL (4.8-10.8)
[2017-07-23] MEDS: INSULIN ASPART 100 UNITS/ML 3 ML PEN SC SCH ×4 (07:00→20:19)
[2017-07-23 07:09] LABS: PTT PATIENT 95.8 SECONDS (21.0-31.0)
[2017-07-23] MEDS: METHYLPHENIDATE HCL 5 MG TAB PO SCH ×2 (07:30→16:56)
[2017-07-23] MEDS: FLUTICASONE HFA 220 MCG INHALER INH SCH ×2 (07:48→20:33)
[2017-07-23] MEDS: METOPROLOL TARTRATE 25 MG TAB PO SCH ×4 (07:49→20:34)
[2017-07-23] MEDS: SODIUM CHLORIDE 0.9% 1000ML 1,000 ML IV SCH (07:49)
[2017-07-23] MEDS: SERTRALINE HCL 100 MG TAB PO SCH (07:49)
[2017-07-23] MEDS: MONTELUKAST SOD 10 MG TAB PO SCH (07:49)
[2017-07-23] MEDS: CEROVITE ADV FORMULA TAB PO SCH (07:49)
[2017-07-23] MEDS: HEPARIN 25,000 UNIT/500ML D5W 500 ML IV SCH (08:00)
[2017-07-23] MEDS ORDERED: METOPROLOL SUCC 25MG EXT REL TAB PO SCH (09:00)
--- NOTE | 2017-07-23 09:18 | Cardiology Follow-Up ---
Subjective General Date of Service: July 23, 2017. Chief Complaint: afib; HTN Pt evaluation today including: conversation w/ patient, physical exam, chart review, lab review, review of studies, review of inpatient medication list History of Present Illness Patient feeling better this AM. Still notes dyspnea with ambulation. No chest pain. Heart rates improved, ranging 85-100 at rest. No orthopnea, PND or edema. No sense of palpitations or tachypalpitations. No dizziness. BP remains borderline elevated. Allergies Coded Allergies: Latex (Verified Allergy, Mild, RASH, 07/21/17) Aspirin (Verified Allergy, Unknown, 09/06/10) Erythromycin (Verified Allergy, Unknown, 09/06/10) Sulfa Drugs (Verified Allergy, Unknown, 09/06/10) Social History Smoking Status: Former Smoker Hx Tobacco Use In Past Year?: No Hx Alcohol Use - Type And Amou: Yes (1 glass of beer or wine weekly) Hx Substance Use - Type And Am: No Problem List Medical Problems: (1) Rapid atrial fibrillation Status: Acute (2) Shortness of breath Status: Acute Review of Systems Respiratory: + dyspnea on exertion, No cough, No sputum, No wheezing, No shortness of breath, No dyspnea at rest, No hemoptysis Cardiac: No chest pain, No orthopnea, No PND, No edema, No palpitations Physical Exam Vital Signs Last Vital Signs Documentation Date Time Temp Pulse Resp B/P (MAP) Pulse Ox O2 Delivery O2 Flow Rate FiO2 07/23/17 07:22 36.6 91 24 145/90 (108) 92 Room Air Physical Exam Constitutional: General Apperance: overweight Level of Distress: NAD Psychiatric: Mental Status: active & alert Orientation: to time, to place, to person Head: normocephalic Eyes: Pupils: PERRLA Neck: supple Lungs: Respiratory effort: no dyspnea Auscultation: breath sounds normal, no wheezing, no rales/crackles Cardiovascular: Heart Auscultation: no murmurs, no rubs, irregular rate rhythm Peripheral Pulses: Dorsalis Pedis Pulse: normal on the left, normal on the right Abdomen: Bowel Sounds: normal Inspection & Palpation: soft, non-distended Extremities: no edema Assessment and Plan Assessment and Plan 1. New onset atrial fibrillation, with RVR. Duration unknown, possibly 2-4 weeks. 2. Mild Cardiomyopathy, global hypokinesis, LVEF 45-50%, possibly tachy induced 3. Dyspnea - multifactorial, risk factors for CAD 4. Hypertension - uncontrolled 5. Dyslipidemia - on atorvastatin 6. Prior retinal artery occlusion 7. Elevated Glucose readings - elevated Hbg A1C 8. ADD 9. History of prolonged QT - Qt ok on admission 10. Possible underlying LILI. Upcoming sleep med evaluation. PLAN: Stop heparin, intiiate Eliquis 5 mg BID for anticoagulation. Initiate losartan 25 mg - 1 tab daily for uncontrolled HTN, reduced EF, and newly diagnosed DM. HR's improving with metoprolol tartrate 25 q6 hours. Will likely need at least 50 mg BID on discharge. CHADSVASC score of 3-4 (female, HTN, prior vascular disease, and possible DM.). Will need usp anticoagulation. After 4 weeks of appropriate anticoagulation, can discuss elective cardioversion. She will also need ischemic work up given dyspnea. Recommend lexiscan nuclear stress test as outpatient. Needs to discontinue Ritalin due to arrhythmias. Case discussed with Dr. Romero. CARDIOLOGY ATTENDING ADDENDUM: The patient was seen and personally examined. Agree with Evi Cho PA-C's findings and plans as documented above with additions noted below. S: patient feels improved. Data: telemetry reveals AF with improved V rates in the 90s at rest. Imp: as above. Plan: Agree with addition of losartan. Will likely transition back to metoprolol succinate at discharge (perhaps tomorrow). Eliquis for stroke prophylaxis. Follow DCCV as outpt after 4 weeks of anticoagulation. Plan for ischemic work up after cardioversion. Laboratory Results Last 24 Hours Test 07/22/17 21:59 07/23/17 05:49 07/23/17 07:28 Bedside Glucose 164 mg/dl 122 mg/dl White Blood Count 6.18 K/uL Red Blood Count 4.70 M/uL Hemoglobin 13.7 g/dL Hematocrit 43.0 % Mean Corpuscular Volume 91.5 fL Mean Corpuscular Hemoglobin 29.1 pg Mean Corpuscular Hemoglobin Concent 31.9 g/dl Platelet Count 206 K/uL Mean Platelet Volume 9.9 fL Neutrophils (%) (Auto) 61.9 % Lymphocytes (%) (Auto) 23.9 % Monocytes (%) (Auto) 10.8 % Eosinophils (%) (Auto) 2.9 % Basophils (%) (Auto) 0.2 % Neutrophils # (Auto) 3.82 K/uL Lymphocytes # (Auto) 1.48 K/uL Monocytes # (Auto) 0.67 K/uL Eosinophils # (Auto) 0.18 K/uL Basophils # (Auto) 0.01 K/uL RDW Standard Deviation 52.0 fL RDW Coefficient of Variation 15.4 % Immature Granulocyte % (Auto) 0.3 % Immature Granulocyte # (Auto) 0.02 K/uL Activated Partial Thromboplast Time 95.8 SECONDS Partial Thromboplastin Ratio 3.7
[2017-07-23] MEDS: APIXABAN 2.5 MG TAB PO SCH ×2 (09:21→20:33)
[2017-07-23] MEDS ORDERED: LOSARTAN POTASSIUM 25 MG TAB PO ONE (09:30)
--- NOTE | 2017-07-23 10:51 | Pharmacy Progress Note ---
Glycemic Control Intl Consult Date of Service July 23, 2017. Scope Glycemic Pharmacist consulted by Dr Augustin on 07/22/17 for glycemic control and to write orders per [facility] inpatient glycemic control protocol Objective Weight (Kilograms): 108.500 Accuchecks BSG (last 24hrs): Test 07/22/17 21:59 07/23/17 07:28 Bedside Glucose 164 mg/dl (70-90) 122 mg/dl (70-90) Laboratory Data (last 24hrs) Test 07/23/17 05:49 White Blood Count 6.18 K/uL Red Blood Count 4.70 M/uL Hemoglobin 13.7 g/dL Hematocrit 43.0 % Mean Corpuscular Volume 91.5 fL Mean Corpuscular Hemoglobin 29.1 pg Mean Corpuscular Hemoglobin Concent 31.9 g/dl Platelet Count 206 K/uL Mean Platelet Volume 9.9 fL Neutrophils (%) (Auto) 61.9 % Lymphocytes (%) (Auto) 23.9 % Monocytes (%) (Auto) 10.8 % Eosinophils (%) (Auto) 2.9 % Basophils (%) (Auto) 0.2 % Neutrophils # (Auto) 3.82 K/uL Lymphocytes # (Auto) 1.48 K/uL Monocytes # (Auto) 0.67 K/uL Eosinophils # (Auto) 0.18 K/uL Basophils # (Auto) 0.01 K/uL HbA1c Test 07/22/17 07:00 Hemoglobin A1c 6.7 % (4.5-5.6) H Recent Pertinent Medications Outpatient Anti-diabetic Regimen: * N/A - no prior diagnosis The patient is currently receiving: * Basal insulin: N/A, none needed * Correctional Insulin: Novolog Correction per scale ACHS Goal Range: Low 120 mg/dL - High 160 mg/dL Correction Factor: 30 mg/dL/unit * Prandial insulin: Per carb ratio of 1 unit per -- grams CHO consumed Risk Factors for Insulin Resistance: * Diet * Elevated BMI Assessment & Plan ASSESSMENT: * 62yo newly diagnosed T2DM female per A1c. AM fasting BSG not quite diagnostic for diabetes and no random BSGs >180 mg/dl. Pt may have an altered glycemic index which results in A1c being reported higher than actual BSGs. Regardless, changes need made to prevent progression to uncontrolled diabetes. * Pt ordered bolus insulin per CF only - refused insulin last evening when BSG was 164 mg/dl. One unit was to be given for correctional coverage. Pt stated that she just had an HS snack (crackers) and did not want coverage for a "post- prandial" BSG * Discussed initiating metformin and lifestyle changes at discharge. Met with patient along with adult educator to review this information. * Pt verbalized understanding and expressed interest in making dietary changes (reducing CHO intake) and increasing exercise (working up to 150 minutes of exercise/week). * BSGs well controlled on current regimen. PLAN FOR INPATIENT GLYCEMIC CONTROL: * Correctional Insulin with NOVOLOG per scale ACHS or Q6hrs while NPO * Goal Range: Low 120 mg/dL - High 160 mg/dL * Correction Factor: 30 mg/dL/unit * Nutritional / Prandial insulin per carb ratio of 1 unit per -- grams CHO consumed Discharge considerations: * Start metformin for diabetes/pre-diabetes * Recommend: Metformin XR 500mg PO daily with evening meal. Continue to titrate metformin dosing upwards as recommended. Dosage increases should be made in increments of 500 mg weekly, up to 2,000 mg/day PO, given in divided doses. Doses above 2000 mg/day may be better tolerated if divided and given 3 times per day with meals. 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 [place] and is hoping to walk on a daily basis once a fib converts and SOB resolves. * Prevention of complications (BP, Lipid goals, Immunizations) * Consider outpatient Diabetes Self-Management Education & Support * Please note that the plan above was derived based on current level of insulin resistance and hospital stress. These recommendations are appropriate for inpatient admission only. Plan of care upon discharge will need to be reassessed to avoid potential outpatient hypo/hyperglycemia. Thank you.
[2017-07-23] MEDS: ACETAMINOPHEN 325 MG TAB PO PRN (12:23)
--- NOTE | 2017-07-23 19:28 | Progress Note ---
Internal Med Progress Note Date of Service: July 23, 2017. Provider Documentation: SUBJECTIVE: resting comfortably afebrile denies chest pain or sob says still has hear beating fast but doesn't feel it no other complaints OBJECTIVE: Vital Signs-as noted below Exam: General-alert and awake and oriented. Not in distress ENT-normal hearing Neck-supple Lungs-cta b/l no wheezing or crackles Heart-s1 and s2 heard irregular rate and rhythm,no Murmur Abdomen-soft bowel sounds present non tender no distension Extremities-no edema present non tender Neuro-alert and awake moves extremities Lab data as noted below. ASSESSMENT & PLAN: 1. new onse a fib on po Lopressor started on eliquis plan for [facility] anticoagulation plan for cardioversion after 4 weeks of anticoagulation as per cardiology continue to monitor. New systolic chf mostly tachy induced ef 45-50% started on losartan SOB ischemic workup with Lexiscan nuclear stress test as out patient HTN on losartan and Lopressor will monitor Hyperlipidemia on statin hyperglycemia hba1c 6.7 f/u with pcp LILI? upcoming sleep study HX of prolonged Qt avoid qt prolonging meds HCV sp tx ADHD on Ritalin DVT PROPHYLAXIS on eliquis DISPOSITION possible d/c in am Vital Signs: Date Time Temp Pulse Resp B/P (MAP) Pulse Ox O2 Delivery O2 Flow Rate FiO2 07/23/17 16:20 36.6 93 16 159/96 (117) 96 Room Air 07/23/17 16:00 95 Room Air 07/23/17 12:00 Room Air 07/23/17 11:52 36.6 88 20 127/88 (101) 95 Room Air 07/23/17 08:00 92 Room Air 07/23/17 07:22 36.6 91 24 145/90 (108) 92 Room Air 07/23/17 04:10 36.9 92 22 162/95 (117) 92 Room Air 07/23/17 04:00 92 Room Air 07/23/17 00:12 36.8 98 22 143/96 (112) 94 Room Air 07/23/17 00:00 94 Room Air 07/22/17 21:03 114 155/97 (116) 07/22/17 20:00 95 Room Air Lab Results: Results Past 24 Hours Test 07/22/17 21:59 07/23/17 05:49 07/23/17 07:28 07/23/17 11:01 Range/Units Bedside Glucose 164 122 94 70-90 mg/dl White Blood Count 6.18 4.8-10.8 K/uL Red Blood Count 4.70 4.2-5.4 M/uL Hemoglobin 13.7 12.0-16.0 g/dL Hematocrit 43.0 37-47 % Mean Corpuscular Volume 91.5 80-100 fL Mean Corpuscular Hemoglobin 29.1 25-34 pg Mean Corpuscular Hemoglobin Concent 31.9 32-36 g/dl Platelet Count 206 130-400 K/uL Mean Platelet Volume 9.9 7.4-10.4 fL Neutrophils (%) (Auto) 61.9 % Lymphocytes (%) (Auto) 23.9 % Monocytes (%) (Auto) 10.8 % Eosinophils (%) (Auto) 2.9 % Basophils (%) (Auto) 0.2 % Neutrophils # (Auto) 3.82 1.4-6.5 K/uL Lymphocytes # (Auto) 1.48 1.2-3.4 K/uL Monocytes # (Auto) 0.67 0.11-0.59 K/uL Eosinophils # (Auto) 0.18 0-0.5 K/uL Basophils # (Auto) 0.01 0-0.2 K/uL RDW Standard Deviation 52.0 36.4-46.3 fL RDW Coefficient of Variation 15.4 11.5-14.5 % Immature Granulocyte % (Auto) 0.3 % Immature Granulocyte # (Auto) 0.02 0.00-0.02 K/uL Activated Partial Thromboplast Time 95.8 21.0-31.0 SECONDS Partial Thromboplastin Ratio 3.7 Test 07/23/17 16:37 Range/Units Bedside Glucose 131 70-90 mg/dl
[2017-07-23] MEDS: ATORVASTATIN 40 MG TAB PO SCH (20:34)
[2017-07-24 00:30] VITALS: BP 156/74; PULSE 73; TEMP 36.9; O2SAT 93
[2017-07-24] MEDS ORDERED: BENZONATATE 100MG CAP PO PRN (03:00)
[2017-07-24] MEDS: SODIUM CHLORIDE 0.9% 1000ML 1,000 ML IV SCH ×2 (03:22→09:41)
[2017-07-24 04:00] VITALS: O2SAT 94
[2017-07-24 04:36] VITALS: BP 102/76; PULSE 100; TEMP 37; O2SAT 93
[2017-07-24 06:47] LABS: BASO % 0.3 %; BASO ABS # 0.02 K/uL (0-0.2); EOS % 2.5 %; EOS ABS # 0.19 K/uL (0-0.5); HEMATOCRIT 45.3 % (37-47); HEMOGLOBIN 14.7 g/dL (12.0-16.0); IG# 0.02 K/uL (0.00-0.02); LYMPH % 19.7 %; LYMPH ABS # 1.52 K/uL (1.2-3.4); MEAN CELL VOLUME 91.3 fL (80-100); MEAN CORPUSCULAR HEMOGLOBIN 29.6 pg (25-34); MEAN CORPUSCULAR HGB CONC 32.5 g/dl (32-36); MEAN PLATELET VOLUME 9.8 fL (7.4-10.4); MONO % 8.7 %; MONO ABS # 0.67 K/uL (0.11-0.59); NEUT % 68.5 %; NEUT ABS # 5.28 K/uL (1.4-6.5); PLATELET COUNT 216 K/uL (130-400); RED CELL DISTRIBUTION WIDTH CV 15.2 % (11.5-14.5)
[2017-07-24] MEDS: INSULIN ASPART 100 UNITS/ML 3 ML PEN SC SCH ×2 (07:00→11:00)
[2017-07-24 07:17] VITALS: BP 129/93; PULSE 90; TEMP 36.6; O2SAT 94
[2017-07-24 07:17] LABS: PTT PATIENT 27.8 SECONDS (21.0-31.0)
[2017-07-24] MEDS: FLUTICASONE HFA 220 MCG INHALER INH SCH (07:26)
[2017-07-24] MEDS: APIXABAN 2.5 MG TAB PO SCH (07:27)
[2017-07-24] MEDS: ACETAMINOPHEN 325 MG TAB PO PRN (07:27)
[2017-07-24] MEDS: CEROVITE ADV FORMULA TAB PO SCH (07:28)
[2017-07-24] MEDS: SERTRALINE HCL 100 MG TAB PO SCH (07:28)
[2017-07-24] MEDS: METOPROLOL TARTRATE 25 MG TAB PO SCH (07:28)
[2017-07-24] MEDS: MONTELUKAST SOD 10 MG TAB PO SCH (07:28)
[2017-07-24] MEDS: METHYLPHENIDATE HCL 5 MG TAB PO SCH (07:29)
[2017-07-24] MEDS ORDERED: LOSARTAN POTASSIUM 25 MG TAB PO SCH (09:00)
[2017-07-24 09:25] VITALS: TEMP 36.6; O2SAT 94
--- NOTE | 2017-07-24 09:42 | Cardiology Follow-Up ---
Subjective General Date of Service: July 24, 2017. Chief Complaint: follow up exertional shortness of breath Pt evaluation today including: conversation w/ patient, physical exam History of Present Illness The patient is a 62 year old female seen in follow up. Patient states that she feels well. She is out of bed in the chair. For the most rate at rest her telemetry is revealed atrial fibrillation in the rate of 80-90 bpm. With exertion such as being out of bed in the chair or walking to the bathroom her ventricular rates were up to the 110-120 bpm range. She feels much better. Denies any exertional shortness of breath. She looks as though she has much more energy. She is tolerated Eliquis well so far. Allergies Coded Allergies: Latex (Verified Allergy, Mild, RASH, 07/21/17) Aspirin (Verified Allergy, Unknown, 09/06/10) Erythromycin (Verified Allergy, Unknown, 09/06/10) Sulfa Drugs (Verified Allergy, Unknown, 09/06/10) Social History Smoking Status: Former Smoker Hx Tobacco Use In Past Year?: No Hx Alcohol Use - Type And Amou: Yes (1 glass of beer or wine weekly) Hx Substance Use - Type And Am: No Problem List Medical Problems: (1) Rapid atrial fibrillation Status: Acute (2) Shortness of breath Status: Acute Physical Exam Vital Signs Last Vital Signs Documentation Date Time Temp Pulse Resp B/P (MAP) Pulse Ox O2 Delivery O2 Flow Rate FiO2 07/24/17 09:25 36.6 90 20 94 Room Air 07/24/17 07:17 129/93 (105) Physical Exam Constitutional: General Apperance: overweight Level of Distress: NAD Psychiatric: Mental Status: active & alert Orientation: to time, to place, to person Head: normocephalic Eyes: Pupils: PERRLA Neck: supple Lungs: Respiratory effort: no dyspnea Auscultation: breath sounds normal, no wheezing, no rales/crackles Cardiovascular: Heart Auscultation: no murmurs, no rubs, irregular rate rhythm Peripheral Pulses: Dorsalis Pedis Pulse: normal on the left, normal on the right Abdomen: Bowel Sounds: normal Inspection & Palpation: soft, non-distended Extremities: no edema Assessment and Plan Assessment and Plan Impression: 62-year-old female 1. New onset atrial fibrillation, with RVR. Duration unknown, possibly 2-4 weeks. 2. Mild Cardiomyopathy, global hypokinesis, LVEF 45-50%, possibly tachy induced 3. Dyspnea - multifactorial, risk factors for CAD 4. Hypertension - uncontrolled 5. Dyslipidemia - on atorvastatin 6. Prior retinal artery occlusion 7. Elevated Glucose readings - elevated Hbg A1C 8. ADD 9. History of prolonged QT - Qt ok on admission 10. Possible underlying LILI. Upcoming sleep med evaluation. PLAN: Patient with interval clinical improvement. Discontinue metoprolol tartrate 25 mg 4 times daily and will transition her to metoprolol succinate 50 mg twice daily given mild left ventricular systolic dysfunction. She has received an initiation loading dose of short acting metoprolol, and I feel she is ready to proceed with the long-acting metoprolol succinate which is appropriate for her given her mild left ventricular systolic dysfunction. I plan to give her a one-time dose at 10:00 this morning, and her next dose will be due this evening at bedtime. The patient is to receive Eliquis 5 mg 2 times per day without interruption moving forward. Given her underlying risk factors for coronary artery disease including age, hypertension, dyslipidemia and diabetes, as well as her arrhythmia I recommend that her methylphenidate be discontinued. An outpatient cardiology follow-up visit has already been made in 2 weeks. At that time she will be reassessed in the office, and if she remains in atrial fibrillation, will plan for elective direct-current cardioversion after she has completed 4 weeks of unerupted anticoagulation. Her cardioversion appointment has already tentatively been scheduled for 08/19/17. Laboratory Results Last 24 Hours Test 07/23/17 11:01 07/23/17 16:37 07/23/17 20:13 07/24/17 06:36 Bedside Glucose 94 mg/dl 131 mg/dl 95 mg/dl White Blood Count 7.70 K/uL Red Blood Count 4.96 M/uL Hemoglobin 14.7 g/dL Hematocrit 45.3 % Mean Corpuscular Volume 91.3 fL Mean Corpuscular Hemoglobin 29.6 pg Mean Corpuscular Hemoglobin Concent 32.5 g/dl Platelet Count 216 K/uL Mean Platelet Volume 9.8 fL Neutrophils (%) (Auto) 68.5 % Lymphocytes (%) (Auto) 19.7 % Monocytes (%) (Auto) 8.7 % Eosinophils (%) (Auto) 2.5 % Basophils (%) (Auto) 0.3 % Neutrophils # (Auto) 5.28 K/uL Lymphocytes # (Auto) 1.52 K/uL Monocytes # (Auto) 0.67 K/uL Eosinophils # (Auto) 0.19 K/uL Basophils # (Auto) 0.02 K/uL RDW Standard Deviation 51.0 fL RDW Coefficient of Variation 15.2 % Immature Granulocyte % (Auto) 0.3 % Immature Granulocyte # (Auto) 0.02 K/uL Activated Partial Thromboplast Time 27.8 SECONDS Partial Thromboplastin Ratio 1.1 Test 07/24/17 07:25 Bedside Glucose 107 mg/dl
[2017-07-24 10:00] VITALS: BP 106/71; PULSE 79
[2017-07-24] MEDS ORDERED: METOPROLOL SUCC 50MG EXT REL TAB PO ONE (10:00)
[2017-07-24] MEDS ORDERED: APIX1TAB3 PO (10:27)
[2017-07-24] MEDS ORDERED: TPRSR50 PO (10:27)
[2017-07-24] MEDS ORDERED: CZR25 PO (10:27)
--- NOTE | 2017-07-24 10:31 | Discharge Instructions ---
Discharge Instructions Date of Service July 24, 2017. Admission Reason for Admission: AFIB Discharge Discharge Diagnosis / Problem: RAPID AFIB Discharge Goals Goal(s): Decrease discomfort, Improve function Activity Recommendations Activity Limitations: resume your previous activity ( TOLERATED) . Instructions / Follow-Up Instructions / Follow-Up FOLLOWUP WITH FAMILY DOCTOR ON July AT 11:15AM FOLLOWUP WITH CARDIOLOGY SCHEDULED. CARDIOVERSION PER CARDIOLOGY IN 4WEEKS. NEW MEDICATIONS: TOPROL XL 50MG TWICE DAILY ELIQUIS 5MG TWICE DAILY LOSARTAN 25MG ONCE DAILY. STOPPED MEDICATIONS: PROPRANOLOL( SINCE STARTED ON TOPROL XL) METHYLPHENIDATE( CARDIOLOGY RECOMMENDATIONS) MELOXICAM( DOUBLE NEEDLE OPERATOR LOCKSTITCH USE CAN CAUSE GASTRIC ULCERS, KIDNEY FAILURE AND HEART ATTACKS) Current Hospital Diet Patient's current hospital diet: AHA Diet (Heart Healthy) Discharge Diet Recommended Diet: AHA Diet (Heart Healthy) Pending Studies Studies pending at discharge: no Laboratory Results Hemoglobin A1c Test 07/22/17 07:00 Range/Units Estimated Average Glucose 146 mg/dl Hemoglobin A1c 6.7 H 4.5-5.6 % Medical Emergencies . Who to Call and When: Medical Emergencies: If at any time you feel your situation is an emergency, please call 911 immediately. . Non-Emergent Contact Non-Emergency issues call your: Primary Care Provider . . "Provider Documentation" section prepared by Homar Saenz. .
--- NOTE | 2017-07-24 19:19 | Progress Note ---
Internal Med Progress Note Date of Service: July 24, 2017. Provider Documentation: SUBJECTIVE: resting comfortably on the chair afebrile no chest pain or sob likes to go home OBJECTIVE: Vital Signs-as noted below Exam: General-alert and awake and oriented. Not in distress ENT-normal hearing Neck-supple Lungs-cta b/l no wheezing or crackles Heart-s1 and s2 heard irregular rate and rhythm,no Murmur Abdomen-soft bowel sounds present non tender no distension Extremities-no edema present non tender Neuro-alert and awake moves extremities Lab data as noted below. ASSESSMENT & PLAN: 1. new onse a fib on po Lopressor started on eliquis plan for halfway anticoagulation d/c on toprol xl 50 bid and eliquis plan for cardioversion after 4 weeks of anticoagulation as per cardiology f/u with cardiology New systolic chf mostly tachy induced ef 45-50% started on losartan f/u with cardiology SOB ischemic workup with Lexiscan nuclear stress test as out patient HTN on losartan and Lopressor will monitor Hyperlipidemia on statin hyperglycemia hba1c 6.7 f/u with pcp LILI? upcoming sleep study HX of prolonged Qt avoid qt prolonging meds HCV sp tx ADHD stopped Ritalin per cardiology recommendations discharged home Vital Signs: Date Time Temp Pulse Resp B/P (MAP) Pulse Ox O2 Delivery O2 Flow Rate FiO2 07/24/17 10:00 79 106/71 (83) 07/24/17 09:25 36.6 90 20 94 Room Air 07/24/17 08:00 Room Air 07/24/17 07:17 36.6 90 20 129/93 (105) 94 Room Air 07/24/17 04:36 37.0 100 20 102/76 (85) 93 Room Air 07/24/17 04:00 94 Room Air 07/24/17 00:30 36.9 73 22 156/74 (101) 93 Room Air 07/23/17 23:59 94 Room Air 07/23/17 20:00 94 Room Air 07/23/17 19:47 36.4 88 18 101/71 (81) 94 Room Air Lab Results: Results Past 24 Hours Test 07/23/17 20:13 07/24/17 06:36 07/24/17 07:25 Range/Units Bedside Glucose 95 107 70-90 mg/dl White Blood Count 7.70 4.8-10.8 K/uL Red Blood Count 4.96 4.2-5.4 M/uL Hemoglobin 14.7 12.0-16.0 g/dL Hematocrit 45.3 37-47 % Mean Corpuscular Volume 91.3 80-100 fL Mean Corpuscular Hemoglobin 29.6 25-34 pg Mean Corpuscular Hemoglobin Concent 32.5 32-36 g/dl Platelet Count 216 130-400 K/uL Mean Platelet Volume 9.8 7.4-10.4 fL Neutrophils (%) (Auto) 68.5 % Lymphocytes (%) (Auto) 19.7 % Monocytes (%) (Auto) 8.7 % Eosinophils (%) (Auto) 2.5 % Basophils (%) (Auto) 0.3 % Neutrophils # (Auto) 5.28 1.4-6.5 K/uL Lymphocytes # (Auto) 1.52 1.2-3.4 K/uL Monocytes # (Auto) 0.67 0.11-0.59 K/uL Eosinophils # (Auto) 0.19 0-0.5 K/uL Basophils # (Auto) 0.02 0-0.2 K/uL RDW Standard Deviation 51.0 36.4-46.3 fL RDW Coefficient of Variation 15.2 11.5-14.5 % Immature Granulocyte % (Auto) 0.3 % Immature Granulocyte # (Auto) 0.02 0.00-0.02 K/uL Activated Partial Thromboplast Time 27.8 21.0-31.0 SECONDS Partial Thromboplastin Ratio 1.1 Microbiology Results 07/24/17 C.difficile Toxin B Gene (PCR) - Final, Complete
--- NOTE | 2017-07-24 19:31 | Discharge Summary ---
Discharge Summary Date of Service July 24, 2017. Discharge Summary Admission Date: July 22, 2017 at 00:34 Discharge Date: July 24, 2017 Discharge Disposition: Home Principal Diagnosis: NEW ONSET RAPID AFIB NEW SYSTOLIC CHF Secondary Diagnoses/Problems: for hypertension, past tobacco abuse, history of mitral regurgitation, hyperlipidemia, migraine as per records, history of HCV status post treatment, attention deficit disorder, LILI Procedures: CTA CHEST: 1. No evidence for pulmonary embolus. 2. Mild emphysema. 3. Cardiomegaly. 4. Mild thickening of the esophagus suggestive of a nonspecific esophagitis. 5. A 5 mm right lower lobe indeterminate pulmonary nodule. Please refer to the chart below. Consultations: CARDIOLOGY Medication Reconciliation New Medications: Apixaban (Eliquis) 5 Mg Tab 5 MG PO BID for 30 Days, #60 TAB 3 Refills Losartan Potassium (Losartan Potassium) 25 Mg Tab 25 MG PO QAM, #30 TAB 2 Refills Metoprolol Succinate (Metoprolol Succinate ER) 50 Mg Tabcr 50 MG PO BID, #60 2 Refills Continued Medications: Albuterol Hfa (Ventolin Hfa) 200 Puffs/45726 Mcg Aers 2 PUFFS INH Q4 PRN for SOB/Wheezing, #1 INHALER Atorvastatin (Lipitor) 40 Mg Tab 40 MG PO QPM, TAB Cholecalciferol (Vitamin D) 400 Unit Tab 400 UNITS PO DAILY Fluticasone Propionate (Flovent Hfa) 120 Puffs/[id number] Mcg Aero 2 PUFFS INH BID for 30 Days, #1 INHALER 3 Refills Fluticasone Propionate (Inhala (Flovent Diskus) 100 Mcg/Blist Aer 2 PUFFS INH BID, #1 INHALER 3 Refills Montelukast Sodium (Singulair) 10 Mg Tab 10 MG PO DAILY, TAB Multivitamins/Minerals (Mvi With Minerals) Tab 1 TAB PO DAILY, TAB Sertraline (Zoloft) 100 Mg Tab 100 MG PO DAILY, TAB Vitamin E (E-400) 400 Unit Cap 400 UNITS DAILY Discontinued Medications: Meloxicam (Mobic) 15 Mg Tab 15 MG PO DAILY, TAB Methylphenidate (Ritalin) 5 Mg Tab 5 MG PO BID, TAB Propranolol Hcl (Propranolol Hcl) 40 Mg Tab 1 TAB PO DAILY for 30 Days, #30 TAB 2 Refills Admission Information HPI (per Admitting provider): History obtained from patient and records. Medical history significant for hypertension, past tobacco abuse, history of mitral regurgitation, hyperlipidemia, migraine as per records, history of HCV status post treatment, attention deficit disorder, LILI as per records. Last month, patient noted shortness of breath especially on exertion. Denies weight gain. Denies chest pain. some wheezing, which attributes to possible smoker's cough. Loose stools today. No abdominal pain. Seen at PCP's office today for an appointment. EKG done showed atrial fibrillation. Patient was sent to the Emergency Room. At the Emergency Room, heart rate noted to be 120s. IV Cardizem started in the ER. Physical Exam (per Admitting): VITAL SIGNS: Blood pressure was noted to be 191/120, later 130/80, pulse rate 120 later 84, RR 26 T 37 O2 sats 95 on room air. GENERAL: Noted to be slightly anxious, no respiratory distress, obese. SKIN: Normal color, warm. HEENT: [place] palpebral conjunctivae. No ptosis. Dry mucosa. NECK: Short, supple. CHEST: Decreased breath sounds. Occasional wheeze . HEART: irregular, systolic murmur. ABDOMEN: Some distention, nontender. EXTREMITIES: No edema noted. No tenderness. No gross deformity. NEUROLOGIC: Coherent, no gross focality. Hospital Course 1. 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 upcoming sleep study HX of prolonged Qt avoid qt prolonging meds HCV sp tx ADHD stopped Ritalin per cardiology recommendations discharged home Total time spent on discharge = 35MINUTES This includes examination of the patient, discharge planning, medication reconciliation, and communication with other providers. Discharge Instructions Please take this sheet to every appointment for the next month Discharge Instructions Date of Service July 24, 2017. Admission Reason for Admission: AFIB Discharge Discharge Diagnosis / Problem: RAPID AFIB Discharge Goals Goal(s): Decrease discomfort, Improve function Activity Recommendations Activity Limitations: resume your previous activity ( TOLERATED) . Instructions / Follow-Up Instructions / Follow-Up FOLLOWUP WITH FAMILY DOCTOR ON July AT 11:15AM FOLLOWUP WITH CARDIOLOGY SCHEDULED. CARDIOVERSION PER CARDIOLOGY IN 4WEEKS. NEW MEDICATIONS: TOPROL XL 50MG TWICE DAILY ELIQUIS 5MG TWICE DAILY LOSARTAN 25MG ONCE DAILY. STOPPED MEDICATIONS: PROPRANOLOL( SINCE STARTED ON TOPROL XL) METHYLPHENIDATE( CARDIOLOGY RECOMMENDATIONS) MELOXICAM( RESTAURANT LINE SERVER USE CAN CAUSE GASTRIC ULCERS, KIDNEY FAILURE AND HEART ATTACKS) Current Hospital Diet Patient's current hospital diet: AHA Diet (Heart Healthy) Discharge Diet Recommended Diet: AHA Diet (Heart Healthy) Pending Studies Studies pending at discharge: no Laboratory Results Hemoglobin A1c Test 07/22/17 07:00 Range/Units Estimated Average Glucose 146 mg/dl Hemoglobin A1c 6.7 H 4.5-5.6 % Medical Emergencies . Who to Call and When: Medical Emergencies: If at any time you feel your situation is an emergency, please call 911 immediately. . Non-Emergent Contact Non-Emergency issues call your: Primary Care Provider . .
[2017-07-24] MEDS ORDERED: METOPROLOL SUCC 50MG EXT REL TAB PO SCH (21:00)
== END 2017-07-24 11:27 | disposition home or self-care (01) | DRG 308 ==
LOC: C.EDB 20:29 → C.MSICU 07-22 00:34 → UNDOADMIN 07-22 00:34 → ENRESERV 07-22 00:47 → C.2T 07-22 19:49
PROVIDERS: ADMIT Internal Medicine; ATTEND Internal Medicine
DX: I48.91 Unspecified atrial fibrillation (principal); I50.21 Acute systolic (congestive) heart failure; Z87.891 Personal history of nicotine dependence; Z91.040 Latex allergy status; Z88.2 Allergy status to sulfonamides; E11.65 Type 2 diabetes mellitus with hyperglycemia; F90.9 Attention-deficit hyperactivity disorder, unspecified type; Z79.899 Other long term (current) drug therapy; Z91.19 Patient's noncompliance with other medical treatment and regimen; G47.33 Obstructive sleep apnea (adult) (pediatric); E66.9 Obesity, unspecified; I42.9 Cardiomyopathy, unspecified; E78.5 Hyperlipidemia, unspecified; I34.0 Nonrheumatic mitral (valve) insufficiency

== ENCOUNTER 2017-10-08 09:36 | Inpatient (IN) | payer OTHER ==
[~2017-10-08] VITALS: Ht 167.6 cm; Wt 108.1 kg
[2017-10-08] VITALS (8 sets, daily range): BP systolic 101–141; BP diastolic 72–85; PULSE 67–105; TEMP 36.7–37.3; O2SAT 92–99; Ht 167.6 cm; Wt 108.1 kg
[~2017-10-08 09:36] MED LIST changes: -ALLGUNK; +APIX1TAB3 PO; +ATOR-24 PO; +CHOL400T PO; -CNCUNK; +CZR25 PO; +FLUT1AER5 INH; +FLVHFA110 INH; -HYDUNK; +MONT1TAB3 PO; -MULT-506 PO; +MULT-513 PO; +SERT-234 PO; +TPRSR50 PO; +VITACAP37; +VNTHFA/IN INH
--- NOTE | 2017-10-08 11:32 | Cardiology Consultation ---
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 She was found to be in atrial fibrillation with rapid ventricular response. Her home dose of propranolol which she had previously taken for migraine headache and hypertension was discontinued and she was transition to metoprolol succinate. Her Ritalin was discontinued. She was placed on Eliquis for anticoagulation and metoprolol for rate control. Echocardiogram revealed mild diffuse hypokinesis with an ejection fraction in the range of 45%. After the patient was successfully rate controlled, she was discharged after several days, and returned for an elective direct current cardioversion performed by the undersigned on 08/19/2017. The patient tolerated cardioversion well and was found to be an stable sinus bradycardia in the range of 55 beats per minute post cardioversion. There had been concerns of a history of prolonged QT interval, however her QT interval was stable on her post procedure EKG at 473 milliseconds on 08/19/2017. Due to her history of mild left ventricular systolic dysfunction risk factors for coronary heart disease she underwent a pharmacologic nuclear stress test on 08/26/2017 that revealed normal perfusion without evidence of myocardial infarction or ischemia and her ejection fraction had normalized at that point. She returned in post cardioversion follow-up was seen by right Evi Cho of our practice on 08/29/2017 at which time sinus bradycardia 55 beats per minute was noted with a stable corrected QT interval of 445 milliseconds. The patient notes that she had felt well post cardioversion up until about a week ago. She was doing some shopping with her daughter who happens to be a family practice physician at [facility]. Both the patient and her daughter noticed that the patient 's heart rate was elevated and irregular. The patient therefore called in to our office yesterday and she came in for an EKG today. Her EKG performed this morning 10/08/2017 at 8:30 a.m. revealed atrial fibrillation with rapid ventricular response at 124 beats per minute. An age undetermined septal infarction pattern is present relatively unchanged compared to her prior anteroseptal leads. The patient describes shortness of breath, dizziness, and episodes of heavy perspiration similar to what she had experienced that prompted her initial atrial fibrillation admission back in July. History Past Medical History: 1. Dyslipidemia 2. Prior retinal artery occlusion 3. Hypertension 4. Obesity 5. atrial fibrillation 6. Prior tobacco abuse 7. migraine 8. ADD Surgical History: 1. Appendectomy 2. Breast biopsy 3. Ovarian biopsy 4. 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 A total of 10 systems reviewed and were otherwise negative. Allergies Coded Allergies: Latex (Verified Allergy, Mild, RASH, 07/21/17) Aspirin (Verified Allergy, Unknown, 09/06/10) Erythromycin (Verified Allergy, Unknown, 09/06/10) Sulfa Drugs (Verified Allergy, Unknown, 09/06/10) Medications Reported Home Medications Medications Dose Route/Sig Max Daily Dose Days Date Category Eliquis (Apixaban) 5 Mg Tab 5 Mg PO BID 30 07/24/17 Rx Metoprolol Succinate ER (Metoprolol Succinate) 50 Mg Tabcr 50 Mg PO BID 07/24/17 Rx Losartan Potassium 25 Mg Tab 25 Mg PO QAM 07/24/17 Rx Flovent Hfa (Fluticasone Propionate) 120 Puffs/58201 Mcg Aero 2 Puffs INH BID 30 07/22/17 Reported Mvi With Minerals (Multivitamins/Minerals) Tab 1 Tab PO DAILY 07/21/17 Reported Vitamin D (Cholecalciferol) 400 Unit Tab 400 Units PO DAILY 07/21/17 Reported E-400 (Vitamin E) 400 Unit Cap 400 Units DAILY 07/21/17 Reported Zoloft (Sertraline HCl) 100 Mg Tab 100 Mg PO DAILY 07/21/17 Reported Singulair (Montelukast Sodium) 10 Mg Tab 10 Mg PO DAILY 07/21/17 Reported Flovent Diskus (Fluticasone Propionate (Inhala) 100 Mcg/Blist Aer 2 Puffs INH BID 07/21/17 Reported Lipitor (Atorvastatin Calcium) 40 Mg Tab 40 Mg PO QPM 07/21/17 Reported Ventolin Hfa (Albuterol) 200 Puffs/03293 Mcg Aers 2 Puffs INH Q4 PRN 07/21/17 Reported Physical Exam Vital Signs (Last 8hrs): BP 124/62 mm Hg, left upper arm Pulse 124 bpm Resp rate 16 bpm General Appearance: Alert and Oriented x3. NAD. Head: Normocephalic Atraumatic. Eyes: PERRLA, EOMI, conjunctiva and sclera clear Neck: Supple. No carotid bruits noted. No JVD. No HJD. Respiratory: Breath sounds clear to auscultation bilaterally. No w/r/r. Cardiovascular: irregular rhythm, tachycardic, no murmurs Abdomen: Normal bowel sounds, soft nontender. no abdominal bruits. Extremities: No edema, no clubbing or cyanosis. distal pulses 2/4 bilaterally. Neuro: No focal deficits. Psychiatric: Normal affect. 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 She has been NPO greater than 8 hours today. Given her significant symptoms, I recommend direct admission to the telemetry unit at [facility]. Consideration will be made regarding possible direct current cardioversion today and medication changes to perhaps include initiation of the anti rhythmic medication Multaq. The patient is no longer on Ritalin. She remains on Zoloft. Will monitor her QT interval given possible start of Multaq. Although she did have mild impairment of her ejection fraction. She did not present with clinical heart failure and therefore I still believe this would be reasonable med occasion for her. Another option would be sotalol, but the patient plans a vacation to the [place] with her family in 3 days, and I am not certain she will stay in the hospital long enough to allow the necessary 72 hours of observation for sotalol initiation. Do not think that increasing her metoprolol will be enough as sinus bradycardia was noted post cardioversion. Would recommend either reducing her dose of metoprolol to make room for anti rhythmic medication or discontinuing her metoprolol. Patient does have moderate concentric left ventricular hypertrophy , and I do not think she would therefore be a candidate for flecainide. The patient has been NPO with the exception of her medications with a sip of water since 9 pm 10/07/17. She took her Eliquis this am and has not missed any doses. Pt to be reassessed by Dr Bonilla at the hospital.
[2017-10-08] MEDS ORDERED: ONDANSETRON INJ 2 MG/ML 2 ML VIAL IV PRN (11:45)
[2017-10-08] MEDS ORDERED: ACETAMINOPHEN 325 MG TAB PO PRN (11:45)
--- NOTE | 2017-10-08 11:46 | History and Physical ---
History & Physical Date & Time of Service: Oct 08, 2017 at 11:46 Chief Complaint: A Fib W/ Rvr Primary Care Physician: Queenie Shipman D.O. History of Present Illness Source: patient, clinic records, hospital records Patient is a 62yo F with a PMH of Atrial Fibrillation, HTN, HLD and other medical problems listed below who presents as a direct admit from Dr. Romero' s office for A Fib with RVR. Was recently admitted from July 22- of this year for new onset A Fib with RVR and newly reduced systolic function with EF ~ 45%. Was initiated on metoprolol succinate and Eliquis for anticoagulation prior to discharge home. Underwent a successful cardioversion on 08/19/[address] Romero and was found to be in sinus bradycardia following cardioversion. Due to bradycardia and cardiac risk factors, a nuclear stress test was performed on 08/26/17 without evidence of inducible ischemia. EF also was found to be normalized at this point. Patient states that she felt well from the time of cardioversion until approximately a week ago, when she began experiencing dyspnea on exertion with walking around the house. Had an EKG performed at cardiac clinic today that showed A Fib with RVR at 124 bpm. Was directly admitted to telemetry floor for possible cardioversion and medical management. In addition to dyspnea on exertion, is also experiencing diaphoresis and dizziness with positional changes. Had mild abdominal discomfort last evening that has since resolved. Denies chest pain or syncopal episodes. Denies fever, chills, abdominal pain, nausea, vomiting, bowel or bladder changes or LE swelling. Has been taking Eliquis regularly at home and last dose was this AM. Has not had anything to eat today. 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 Status: Resolved Social History Problems: (1) Former tobacco use Status: Resolved Family History FH: bipolar disorder Kidney disease MOTHER Social History Smoking Status: Former Smoker Alcohol Use: occasionally (1-2 drinks/week ) Drug Use: none Marital Status: single Occupational Status: retired Allergies Coded Allergies: Latex (Verified Allergy, Mild, RASH, 07/21/17) Aspirin (Verified Allergy, Unknown, 09/06/10) Erythromycin (Verified Allergy, Unknown, 09/06/10) Sulfa Drugs (Verified Allergy, Unknown, 09/06/10) Home Medications Scheduled Apixaban (Eliquis), 5 MG PO BID Ascorbic Acid (Vitamin C), 1 CAP PO BID Atorvastatin (Lipitor), 40 MG PO QPM Cholecalciferol (Vitamin D), 400 UNITS PO DAILY Fish Oil (Shiro-3), 1 CAP PO DAILY Fluticasone Propionate (Flovent Hfa), 2 PUFFS INH BID Fluticasone Propionate (Inhala (Flovent Diskus), 2 PUFFS INH BID Losartan Potassium (Losartan Potassium), 25 MG PO QAM Metoprolol Succinate (Metoprolol Succinate ER), 50 MG PO BID Montelukast Sodium (Singulair), 10 MG PO DAILY Multivitamins/Minerals (Mvi With Minerals), 1 TAB PO DAILY Sertraline (Zoloft), 100 MG PO DAILY Scheduled PRN Albuterol Hfa (Ventolin Hfa), 2 PUFFS INH Q4 PRN for SOB/Wheezing Review of Systems Ten systems reviewed and negative except as noted in the HPI. Physical Exam Vital Signs Date Time Temp Pulse Resp B/P (MAP) Pulse Ox O2 Delivery O2 Flow Rate FiO2 10/08/17 11:14 36.8 105 18 141/85 96 Room Air General Appearance: WD/WN, + mild distress (dizzy with movement ) Head: normocephalic, atraumatic Eyes: normal inspection, PERRL, sclerae normal ENT: normal ENT inspection, hearing grossly normal, pharynx normal (mucous membranes moist) Neck: supple, thyroid normal, trachea midline Respiratory/Chest: chest non-tender, lungs clear, normal breath sounds, no respiratory distress, no accessory muscle use Cardiovascular: no edema, + tachycardia, + irregularly irregular Abdomen/GI: non tender, soft, no organomegaly Extremities/Musculoskelatal: normal inspection, no calf tenderness, no pedal edema Neurologic/Psych: no motor/sensory deficits, alert, normal mood/affect, oriented x 3 Skin: normal color, warm/dry Diagnostics Laboratory Results Results Past 24 Hours Test 10/08/17 11:43 Range/Units EKG A Fib with RVR at 109 bpm. Rightward axis., QTC:484 Impression Assessment and Plan Patient is a 62yo F with a PMH of Atrial Fibrillation, HTN, HLD and other medical problems listed below who presents as a direct admit from Dr. Romero' s office for A Fib with RVR. A Fib with RVR -Recurrent, symptomatic with exertional dyspnea, dizziness -Sent from Dr. Romero's office with EKG findings of A Fib with RVR at 124 bpm -Plan for possible cardioversion today -May initiate Multaq anti-arrhythmic, reduce metoprolol succinate -Cardio consulted - Dr. Lay to evaluate -Keep NPO except meds -Continue Eliquis HTN -Normotensive -Continue losartan HLD -Continue statin H/o migraines -[place] PRN H/o reduced systolic function -- improved -Echo performed in July 2017 with EF of 45% -Repeat echo in mid-August with normalized EF H/o of prolonged QTc -QTc on today's EKG normal at 484 -Avoid qt prolonging meds H/o Hep C DVT Ppx: Continue Eliquis Code status: FULL PCP: Umberto Dispo: Admit to telemetry. Plan to return home once medically stable. Patient seen in collaboration with . Please see addendum. Attending Note: Patient is a 62-year-old female with history of atrial fibrillation, hypertension and other problems was a direct admit from 's office for management of symptomatic A. fib with RVR. Patient underwent successful cardioversion today as per the recommendations of her senior java software engineer. 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 Patient was doing well after the cardioversion but complains of dizziness especially when lying down. Patient started on Multaq and metoprolol for rate control. On exam patient is obese, no distress, Breath sounds are diminished, CTA, S, S2, regular, No edema, No Murmur. Her Heart rate is controlled currently. Patient is admitted in telemetry. Plan to continue Multaq, Metoprolol and eliquis. QTC will be monitored with daily EKG. Monitor electrolytes and replace as needed. Cardiology was consulted. Will start on Meclizine PRN for dizziness. PT will be consulted for Laine's. May benefit from ENT eval as outpatient. I personally reviewed the record. Patient is interviewed and examined at bedside. Patient's care is coordinated with Lis Rodriguez PA-C. Please refer to the documentation above for details of patient's presentation and for discussion of other issues. Advanced Directives Existing Living Will: No Existing Power of Water Softener Installer: No Resuscitation Status VTE Prophylaxis Will order VTE Prophylaxis: Yes
[2017-10-08 12:17] LABS: HEMATOCRIT 43.8 % (37-47); HEMOGLOBIN 14.2 g/dL (12.0-16.0); MEAN CELL VOLUME 92.8 fL (80-100); MEAN CORPUSCULAR HEMOGLOBIN 30.1 pg (25-34); MEAN CORPUSCULAR HGB CONC 32.4 g/dl (32-36); MEAN PLATELET VOLUME 10.2 fL (7.4-10.4); PLATELET COUNT 263 K/uL (130-400); RED CELL DISTRIBUTION WIDTH CV 15.1 % (11.5-14.5); RED CELL DISTRIBUTION WIDTH SD 51.5 fL (36.4-46.3); WHITE BLOOD COUNT 9.74 K/uL (4.8-10.8)
[2017-10-08] MEDS ORDERED: ASCO1CAP3 PO (12:23)
[2017-10-08] MEDS ORDERED: OMEG10007 PO (12:23)
[2017-10-08] MEDS ORDERED: ALBUTEROL HFA 8 GM INHALER INH PRN (12:30)
[2017-10-08 12:41] LABS: PTT PATIENT 29.1 SECONDS (21.0-31.0)
[2017-10-08] MEDS ORDERED: PROPOFOL IV EMULSION 10 MG/ML 20 ML VIAL ONE (12:46)
[2017-10-08] MEDS ORDERED: LIDOCAINE HCL 2% 2 ML VIAL (20MG/ML) ONE (12:46)
[2017-10-08 12:49] LABS: CALCIUM 9.3 mg/dl (8.5-10.1); CREATININE 0.72 mg/dl (0.60-1.20); POTASSIUM 4.3 mmol/L (3.5-5.1)
--- NOTE | 2017-10-08 13:14 | [facility] Post Operative Brief Note ---
Immediate Operative Summary Operative Date Oct 08, 2017. Pre-Operative Diagnosis Atrial fibrillation Post-Operative Diagnosis Atrial fibrillation s/p successfeul DCCV Procedure(s) Performed External direct current cardioversion Surgeon Dr. Donovan Lay Monogram Machine Operator Surgeon(s) none Estimated Blood Loss none Findings Consistent with Post-Op Diagnosis Specimens none Drains None Anesthesia Type MAC Complication(s) none
--- NOTE | 2017-10-08 13:26 | CARDIOVERSION ---
DATE OF OPERATION: 10/08/2017 PROCEDURE: External direct current cardioversion. COMPLICATIONS: None. INDICATIONS: Paroxysmal atrial fibrillation with rapid ventricular response. ESTIMATED BLOOD LOSS: None. PROCEDURAL SUMMARY: The patient was brought to the cardiac catheterization lab in a fasting state. The defibrillator pads were placed in an anterior and posterior position. Moderate sedation was administered by the anesthesia service with propofol. Please see separate sheet for details. When adequate sedation was achieved, the defibrillator was synced to the QRS complex. The defibrillator was then charged to 300 joules and a single shock was delivered. The patient was successfully converted from atrial fibrillation to sinus rhythm. No complications. CONCLUSION: Successful external direct current cardioversion from atrial fibrillation to normal sinus rhythm with 300 joules. I attest to the content of the Intraoperative Record and any orders documented therein. Any exceptions are noted below. MTDD
--- NOTE | 2017-10-08 13:54 | Anesthesiology Progress Note ---
Anesthesia Post Op Note Date & Time Oct 08, 2017 at 13:53 Vital Signs Pain Intensity: 0 Vital Signs Past 12 Hours Date Time Temp Pulse Resp B/P (MAP) Pulse Ox O2 Delivery O2 Flow Rate FiO2 10/08/17 13:32 72 18 106/60 (75) 98 Room Air 10/08/17 13:22 72 18 98/60 (73) 98 Room Air 10/08/17 13:12 72 18 106/65 (79) 98 Room Air 10/08/17 13:10 99 21 101/75 99 Nasal Cannula 10/08/17 13:05 99 21 125/80 99 Nasal Cannula 10/08/17 12:07 Room Air 10/08/17 11:14 36.8 105 18 141/85 96 Room Air Notes Mental Status: alert / awake / arousable, participated in evaluation Pt Amnestic to Procedure: Yes Nausea / Vomiting: adequately controlled Pain: adequately controlled Airway Patency, RR, SpO2: stable & adequate BP & HR: stable & adequate Hydration State: stable & adequate Anesthetic Complications: no major complications apparent
[2017-10-08] MEDS ORDERED: MECLIZINE HCL 12.5 MG TAB PO PRN (14:30)
[2017-10-08] MEDS ORDERED: DRONEDARONE 400 MG TAB PO ONE (14:45)
[2017-10-08] MEDS ORDERED: FLUTICASONE PROPIONATE INH SCH (21:00)
[2017-10-08] MEDS: ATORVASTATIN 40 MG TAB PO SCH (21:06)
[2017-10-08] MEDS: FLUTICASONE HFA 110MCG INHALER INH SCH (21:06)
[2017-10-08] MEDS: APIXABAN 5 MG TAB PO SCH (21:06)
[2017-10-08] MEDS: DRONEDARONE 400 MG TAB PO SCH (21:07)
[2017-10-09] VITALS (7 sets, daily range): BP systolic 103–126; BP diastolic 71–83; PULSE 56–71; TEMP 36.4–37; O2SAT 91–96
[2017-10-09] MEDS: HYDROCODONE/ACETAMIN 5/325MG TAB PO PRN ×2 (00:15→20:56)
[2017-10-09 06:39] LABS: HEMATOCRIT 41.7 % (37-47); HEMOGLOBIN 13.3 g/dL (12.0-16.0); MEAN CELL VOLUME 93.7 fL (80-100); MEAN CORPUSCULAR HEMOGLOBIN 29.9 pg (25-34); MEAN CORPUSCULAR HGB CONC 31.9 g/dl (32-36); MEAN PLATELET VOLUME 9.6 fL (7.4-10.4); PLATELET COUNT 228 K/uL (130-400); RED CELL DISTRIBUTION WIDTH CV 15.2 % (11.5-14.5); RED CELL DISTRIBUTION WIDTH SD 52.2 fL (36.4-46.3); WHITE BLOOD COUNT 8.67 K/uL (4.8-10.8)
[2017-10-09 07:15] LABS: CALCIUM 8.6 mg/dl (8.5-10.1); CREATININE 0.78 mg/dl (0.60-1.20); POTASSIUM 3.9 mmol/L (3.5-5.1)
[2017-10-09] MEDS: DRONEDARONE 400 MG TAB PO SCH ×2 (07:40→20:56)
[2017-10-09] MEDS: CEROVITE ADV FORMULA TAB PO SCH (07:41)
[2017-10-09] MEDS: APIXABAN 5 MG TAB PO SCH ×2 (07:41→20:56)
[2017-10-09] MEDS: MONTELUKAST SOD 10 MG TAB PO SCH (07:41)
[2017-10-09] MEDS: CHOLECALCIFEROL 400 INTER.UNIT TAB PO SCH (07:41)
[2017-10-09] MEDS: FLUTICASONE HFA 110MCG INHALER INH SCH ×2 (07:41→20:55)
[2017-10-09] MEDS: SERTRALINE HCL 100 MG TAB PO SCH (07:41)
[2017-10-09] MEDS: LOSARTAN POTASSIUM 25 MG TAB PO SCH (07:42)
[2017-10-09] MEDS: METOPROLOL SUCC 25MG EXT REL TAB PO SCH (07:42)
--- NOTE | 2017-10-09 10:04 | Cardiology Follow-Up ---
Subjective General Date of Service: Oct 09, 2017. Pt evaluation today including: conversation w/ patient, physical exam, chart review, lab review, review of studies, review of inpatient medication list History of Present Illness The patient is a 62 year old female seen in follow-up. Remains in sinus rhythm overnight. Short salvos of nonsustained ventricular tachycardia recorded. Denies chest pain or shortness of breath. QTC within normal limits on ECG this a.m. Offers no complaints at this time. Allergies Coded Allergies: Latex (Verified Allergy, Mild, RASH, 07/21/17) Aspirin (Verified Allergy, Unknown, 09/06/10) Erythromycin (Verified Allergy, Unknown, 09/06/10) Sulfa Drugs (Verified Allergy, Unknown, 09/06/10) Social History Smoking Status: Former Smoker Hx Tobacco Use In Past Year?: No Hx Alcohol Use - Type And Amou: Yes Hx Substance Use - Type And Am: No Problem List Medical Problems: (1) Rapid atrial fibrillation Status: Acute (2) Shortness of breath Status: Acute Review of Systems Respiratory: No cough, No sputum, No wheezing, No shortness of breath, No dyspnea on exertion, No dyspnea at rest, No hemoptysis Cardiac: No chest pain, No orthopnea, No PND, No edema, No claudication Physical Exam Vital Signs Last Vital Signs Documentation Date Time Temp Pulse Resp B/P (MAP) Pulse Ox O2 Delivery O2 Flow Rate FiO2 10/09/17 07:07 36.7 63 18 126/80 (95) 94 10/09/17 03:35 Room Air Physical Exam Constitutional: General Apperance: heathly-appearing, obese Ambulation: ambulating normally Head: normocephalic, atraumatic Neck: supple Lungs: Auscultation: breath sounds normal, no wheezing, no rales/crackles, no rhonchi Cardiovascular: Heart Auscultation: RRR, normal S1, normal S2, no murmurs Peripheral Pulses: Radial Pulse: normal on the right Abdomen: Inspection & Palpation: soft, non-distended, no tenderness, guarding & rebound Extremities: no cyanosis, no edema, no clubbing, no ulcers Neurologic: Gait & Station: pertinent finding (No focal motor deficit) Cranial Nerves: grossly intact Assessment and Plan Assessment and Plan Final impression: 1. Paroxysmal atrial fibrillation with rapid ventricular response status post elective external direct-current cardioversion 10/08/17. 2. Chronic anticoagulation with Eliquis 3. History of borderline prolonged QT in the past with normal QTC per ECG this a.m. Plan/Recommendations: Continue Multitak 400 mg twice daily with repeat ECG in a.m. Will continue reduced dose metoprolol in addition to Eliquis as well. Tentative plan for discharge in a.m. 10/10/17. Laboratory Results Last 24 Hours Test 10/08/17 12:03 10/09/17 06:16 White Blood Count 9.74 K/uL 8.67 K/uL Red Blood Count 4.72 M/uL 4.45 M/uL Hemoglobin 14.2 g/dL 13.3 g/dL Hematocrit 43.8 % 41.7 % Mean Corpuscular Volume 92.8 fL 93.7 fL Mean Corpuscular Hemoglobin 30.1 pg 29.9 pg Mean Corpuscular Hemoglobin Concent 32.4 g/dl 31.9 g/dl RDW Standard Deviation 51.5 fL 52.2 fL RDW Coefficient of Variation 15.1 % 15.2 % Platelet Count 263 K/uL 228 K/uL Mean Platelet Volume 10.2 fL 9.6 fL Prothrombin Time 11.0 SECONDS Prothromb Time International Ratio 1.0 Activated Partial Thromboplast Time 29.1 SECONDS Partial Thromboplastin Ratio 1.1 Sodium Level 137 mmol/L 137 mmol/L Potassium Level 4.3 mmol/L 3.9 mmol/L Chloride Level 102 mmol/L 103 mmol/L Carbon Dioxide Level 27 mmol/L 28 mmol/L Anion Gap 8.0 mmol/L 6.0 mmol/L Blood Urea Nitrogen 14 mg/dl 17 mg/dl Creatinine 0.72 mg/dl 0.78 mg/dl Est Creatinine Clear Calc Drug Dose 99.3 ml/min 91.6 ml/min Estimated GFR () 103.3 93.8 Estimated GFR (Non- 89.1 80.9 BUN/Creatinine Ratio 19.6 21.5 Random Glucose 121 mg/dl 115 mg/dl Calcium Level 9.3 mg/dl 8.6 mg/dl Magnesium Level 2.0 mg/dl 2.1 mg/dl Thyroid Stimulating Hormone (TSH) 1.100 uIu/ml Chemistry Specimen Hemolysis
--- NOTE | 2017-10-09 11:51 | Progress Note ---
Internal Med Progress Note Date of Service: Oct 09, 2017. Provider Documentation: SUBJECTIVE: The patient was seen and examined in telemetry unit Admitted yesterday with the atrial fibrillation with RVR that reverted to sinus rhythm Has history of paroxysmal atrial fibrillation with the recent cardioversion and rate controlled with beta-omar Denies any symptoms today except dizziness which is worse with neck movement OBJECTIVE: Vital Signs-as noted below Exam: General-no apparent distress but anxious Eyes-normal ENT-normal Neck-supple Lungs-clear to auscultate bilaterally Heart-regular, no murmur appreciated Abdomen-benign, soft, nontender, bowel sounds present Extremities-trace edema bilaterally Neuro-alert awake oriented 3 No focal neuro deficit Any movement of the neck makes the dizziness worse Lab data as noted below. ASSESSMENT & PLAN: Patient is a 62yo F with a PMH of Atrial Fibrillation, HTN, HLD and other medical problems listed below who presents as a direct admit from Dr. Romero' s office for A Fib with RVR. A Fib with RVR -Recurrent, symptomatic with exertional dyspnea, dizziness -Sent from Dr. Romero's office with EKG findings of A Fib with RVR at 124 bpm -Reverted to sinus rhythm on admission -Started on Multaq anti-arrhythmic, reduce metoprolol succinate -Appreciate cardiology input and recommendation -Started oral foot -Continue Eliquis -Remains in sinus rhythm as of today Dizziness Likely secondary to labyrinthitis If continues will give some meclizine on discharge HTN -Normotensive -Continue losartan HLD -Continue statin H/o migraines -[place] PRN H/o reduced systolic function -- improved -Echo performed in July 2017 with EF of 45% -Repeat echo in mid-August with normalized EF -As per cardiology H/o of prolonged QTc -QTc on today's EKG normal at 484 -Avoid qt prolonging meds H/o Hep C DVT Ppx: Continue Eliquis Code status: FULL PCP: Umberto Dispo: Admit to telemetry. Plan to return home once medically stable. Likely discharge tomorrow Vital Signs: Date Time Temp Pulse Resp B/P (MAP) Pulse Ox O2 Delivery O2 Flow Rate FiO2 10/09/17 11:18 56 18 103/71 (82) 94 10/09/17 08:00 Room Air 10/09/17 07:07 36.7 63 18 126/80 (95) 94 8/9/18 03:35 36.4 58 20 115/79 (91) 96 Room Air 10/08/17 23:59 Room Air 10/08/17 23:30 37.3 67 20 122/75 (91) 95 Room Air 10/08/17 21:28 67 97 10/08/17 19:15 36.9 68 18 119/81 (94) 94 Room Air 10/08/17 16:00 Room Air 10/08/17 15:25 37.1 77 18 112/72 (85) 92 Room Air 10/08/17 13:40 36.7 77 77 106/82 (90) 96 Room Air 10/08/17 13:32 72 18 106/60 (75) 98 Room Air 10/08/17 13:22 72 18 98/60 (73) 98 Room Air 10/08/17 13:12 72 18 106/65 (79) 98 Room Air 10/08/17 13:10 99 21 101/75 99 Nasal Cannula 10/08/17 13:05 99 21 125/80 99 Nasal Cannula 10/08/17 12:07 Room Air Lab Results: Results Past 24 Hours Test 10/08/17 12:03 10/09/17 06:16 Range/Units White Blood Count 9.74 8.67 4.8-10.8 K/uL Red Blood Count 4.72 4.45 4.2-5.4 M/uL Hemoglobin 14.2 13.3 12.0-16.0 g/dL Hematocrit 43.8 41.7 37-47 % Mean Corpuscular Volume 92.8 93.7 80-100 fL Mean Corpuscular Hemoglobin 30.1 29.9 25-34 pg Mean Corpuscular Hemoglobin Concent 32.4 31.9 32-36 g/dl RDW Standard Deviation 51.5 52.2 36.4-46.3 fL RDW Coefficient of Variation 15.1 15.2 11.5-14.5 % Platelet Count 263 228 130-400 K/uL Mean Platelet Volume 10.2 9.6 7.4-10.4 fL Prothrombin Time 11.0 9.0-12.0 SECONDS Prothromb Time International Ratio 1.0 0.9-1.1 Activated Partial Thromboplast Time 29.1 21.0-31.0 SECONDS Partial Thromboplastin Ratio 1.1 Sodium Level 137 137 136-145 mmol/L Potassium Level 4.3 3.9 3.5-5.1 mmol/L Chloride Level 102 103 98-107 mmol/L Carbon Dioxide Level 27 28 21-32 mmol/L Anion Gap 8.0 6.0 3-11 mmol/L Blood Urea Nitrogen 14 17 7-18 mg/dl Creatinine 0.72 0.78 0.60-1.20 mg/dl Est Creatinine Clear Calc Drug Dose 99.3 91.6 ml/min Estimated GFR () 103.3 93.8 Estimated GFR (Non- 89.1 80.9 BUN/Creatinine Ratio 19.6 21.5 10-20 Random Glucose 121 115 70-99 mg/dl Calcium Level 9.3 8.6 8.5-10.1 mg/dl Magnesium Level 2.0 2.1 1.8-2.4 mg/dl Thyroid Stimulating Hormone (TSH) 1.100 0.300-4.500 uIu/ml Chemistry Specimen Hemolysis
[2017-10-09] MEDS: ATORVASTATIN 40 MG TAB PO SCH (20:55)
[2017-10-10 03:35] VITALS: BP 100/67; PULSE 62; TEMP 36.7; O2SAT 94
[2017-10-10 06:49] VITALS: BP 104/69; PULSE 64; TEMP 36.9; O2SAT 97
[2017-10-10] MEDS: CEROVITE ADV FORMULA TAB PO SCH (07:49)
[2017-10-10] MEDS: METOPROLOL SUCC 25MG EXT REL TAB PO SCH (07:49)
[2017-10-10] MEDS: SERTRALINE HCL 100 MG TAB PO SCH (07:49)
[2017-10-10] MEDS: CHOLECALCIFEROL 400 INTER.UNIT TAB PO SCH (07:50)
[2017-10-10] MEDS: LOSARTAN POTASSIUM 25 MG TAB PO SCH (07:50)
[2017-10-10] MEDS: APIXABAN 5 MG TAB PO SCH (07:50)
[2017-10-10] MEDS: DRONEDARONE 400 MG TAB PO SCH (07:50)
[2017-10-10] MEDS: FLUTICASONE HFA 110MCG INHALER INH SCH (07:51)
[2017-10-10] MEDS: MONTELUKAST SOD 10 MG TAB PO SCH (07:51)
[2017-10-10 11:05] VITALS: BP 115/71; PULSE 60; TEMP 36.6; O2SAT 96
--- NOTE | 2017-10-10 11:16 | Cardiology Follow-Up ---
Subjective General Date of Service: Oct 10, 2017. Pt evaluation today including: conversation w/ patient, physical exam, chart review, lab review, review of studies, review of inpatient medication list History of Present Illness The patient is a 62 year old female seen in follow-up. Brief episode of recurrent atrial fibrillation recorded on telemetry. Currently sinus rhythm. Notes episode of vertigo this a.m. Typically takes meclizine as an outpatient. Denies chest pain or shortness of breath. QTC within normal limits on ECG. Patient requesting discharge if possible. Allergies Coded Allergies: Latex (Verified Allergy, Mild, RASH, 07/21/17) Aspirin (Verified Allergy, Unknown, 09/06/10) Erythromycin (Verified Allergy, Unknown, 09/06/10) Sulfa Drugs (Verified Allergy, Unknown, 09/06/10) Social History Smoking Status: Former Smoker Hx Tobacco Use In Past Year?: No Hx Alcohol Use - Type And Amou: Yes Hx Substance Use - Type And Am: No Problem List Medical Problems: (1) Rapid atrial fibrillation Status: Acute (2) Shortness of breath Status: Acute Review of Systems Respiratory: + problem reported, No cough, No sputum, No wheezing, No shortness of breath, No dyspnea on exertion, No dyspnea at rest, No hemoptysis Cardiac: No chest pain, No orthopnea, No PND, No edema, No palpitations Physical Exam Vital Signs Last Vital Signs Documentation Date Time Temp Pulse Resp B/P (MAP) Pulse Ox O2 Delivery O2 Flow Rate FiO2 10/10/17 06:49 36.9 64 20 104/69 (81) 97 Room Air Physical Exam Constitutional: General Apperance: heathly-appearing, obese Ambulation: ambulating normally Head: normocephalic, atraumatic Neck: supple Lungs: Auscultation: breath sounds normal, no wheezing, no rales/crackles, no rhonchi Cardiovascular: Heart Auscultation: RRR, normal S1, normal S2, no murmurs Peripheral Pulses: Radial Pulse: normal on the right Abdomen: Inspection & Palpation: soft, non-distended, no tenderness, guarding & rebound Extremities: no cyanosis, no edema, no clubbing, no ulcers Neurologic: Gait & Station: pertinent finding (No focal motor deficit) Cranial Nerves: grossly intact Assessment and Plan Assessment and Plan Final impression: 1. Paroxysmal atrial fibrillation with rapid ventricular response status post elective external direct-current cardioversion 10/08/17. -Rhythm control initiated with Multitaq 2. Chronic anticoagulation with Eliquis 3. History of borderline prolonged QT in the past with normal QTC per ECG this a.m. Plan/Recommendations: Continue Multitaq 400 mg twice daily, Toprol-XL 25 mg daily, and anticoagulation with Eliquis. Patient may be discharged from a cardiovascular perspective. Outpatient follow-up with Dr. Romero in 2 weeks.
--- NOTE | 2017-10-10 13:16 | Progress Note ---
Internal Med Progress Note Date of Service: Oct 10, 2017. Provider Documentation: SUBJECTIVE: The patient was seen and examined in telemetry unit Admitted yesterday with the atrial fibrillation with RVR that reverted to sinus rhythm Has history of paroxysmal atrial fibrillation with the recent cardioversion and rate controlled with beta-omar Denies any symptoms today except dizziness which is worse with neck movement 10/10: The patient was seen and examined in telemetry unit Remains in sinus rhythm without any cardiac symptoms Complains to have dizziness with some improvement with [place] maneuver Wants to go home today OBJECTIVE: Vital Signs-as noted below Exam: General-no apparent distress but anxious Eyes-normal ENT-normal Neck-supple Lungs-clear to auscultate bilaterally Heart-regular, no murmur appreciated Abdomen-benign, soft, nontender, bowel sounds present Extremities-trace edema bilaterally Neuro-alert awake oriented 3 No focal neuro deficit Any movement of the neck makes the dizziness worse Lab data as noted below. ASSESSMENT & PLAN: Patient is a 62yo F with a PMH of Atrial Fibrillation, HTN, HLD and other medical problems listed below who presents as a direct admit from Dr. Romero' s office for A Fib with RVR. A Fib with RVR -Recurrent, symptomatic with exertional dyspnea, dizziness -Sent from Dr. Romero's office with EKG findings of A Fib with RVR at 124 bpm -Reverted to sinus rhythm on admission -Started on Multaq anti-arrhythmic, reduce metoprolol succinate -Appreciate cardiology input and recommendation -Continue Eliquis -Remains in sinus rhythm as of today -Remains in sinus rhythm with controlled rate -Denies any symptoms and will be discharged home today Dizziness Likely secondary to labyrinthitis If continues will give some meclizine on discharge Improved dizziness with the Laine maneuver We will have physical therapy today and go home this afternoon Was advised to take precaution to avoid fall HTN -Normotensive -Continue losartan HLD -Continue statin H/o migraines -[place] PRN H/o reduced systolic function -- improved -Echo performed in July 2017 with EF of 45% -Repeat echo in mid-August with normalized EF -As per cardiology H/o of prolonged QTc -QTc on today's EKG normal at 484 -Avoid qt prolonging meds H/o Hep C DVT Ppx: Continue Eliquis Code status: FULL PCP: Umberto Dispo: Admit to telemetry. Plan to return home once medically stable. Likely discharge today Vital Signs: Date Time Temp Pulse Resp B/P (MAP) Pulse Ox O2 Delivery O2 Flow Rate FiO2 10/10/17 11:05 36.6 60 20 115/71 (86) 96 10/10/17 06:49 36.9 64 20 104/69 (81) 97 Room Air 10/10/17 04:00 Room Air 10/10/17 03:35 36.7 62 20 100/67 (78) 94 Room Air 10/10/17 00:00 Room Air 10/09/17 23:54 60 91 10/09/17 22:10 36.7 71 20 123/81 (95) 95 Room Air 10/09/17 20:00 Room Air 10/09/17 18:54 36.6 64 20 117/71 (86) 96 Room Air 10/09/17 14:41 37.0 58 18 117/83 (94) 95
[2017-10-10] MEDS ORDERED: DRN400 PO (13:24)
[2017-10-10] MEDS ORDERED: TPRSR25 PO (13:24)
--- NOTE | 2017-10-10 13:26 | Discharge Instructions ---
Discharge Instructions Date of Service Oct 10, 2017. Admission Reason for Admission: A Fib W/ Rvr Discharge Discharge Diagnosis / Problem: PAF with RVR-Resolved Discharge Goals Goal(s): Prevent Disease Progression Activity Recommendations Activity Limitations: resume your previous activity . Instructions / Follow-Up Instructions / Follow-Up Dr Liu on 10/14/17 at 11:15PM.Dr Romero's office will call with appointment Current Hospital Diet Patient's current hospital diet: AHA Diet (Heart Healthy) Discharge Diet Recommended Diet: AHA Diet (Heart Healthy) Procedures Procedures Performed: External direct current cardioversion Pending Studies Studies pending at discharge: no Laboratory Results Hemoglobin A1c Test 07/22/17 07:00 Range/Units Estimated Average Glucose 146 mg/dl Hemoglobin A1c 6.7 H 4.5-5.6 % Medical Emergencies . Who to Call and When: Medical Emergencies: If at any time you feel your situation is an emergency, please call 911 immediately. . Non-Emergent Contact Non-Emergency issues call your: Primary Care Provider . Past History Medical & Surgical History: (1) Atrial fibrillation (2) Atrial fibrillation with RVR (3) HLD (hyperlipidemia) (4) Mitral regurgitation (5) H/O migraine . "Provider Documentation" section prepared by Arturo Boland. .
[2017-10-10 14:24] VITALS: BP 115/71; PULSE 60; TEMP 36.6; O2SAT 96
[2017-10-10] MEDS ORDERED: MECL-91 PO (15:11)
--- NOTE | 2017-10-10 16:41 | Discharge Summary ---
Discharge Summary Date of Service Oct 10, 2017. Discharge Summary Admission Date: Oct 08, 2017 at 10:50 Discharge Date: Oct 10, 2017 Discharge Disposition: Home Principal Diagnosis: PAF with RVR-Resolved Secondary Diagnoses/Problems: Please see H&P and Hospital Progress note Consultations: Cardiology Medication Reconciliation New Medications: Meclizine HCl (Meclizine 25) 25 Mg Tab 12.5 MG PO Q6HWA for Dizziness or Vertigo, #30 TAB Dronedarone (Multaq) 400 Mg Tab 400 MG PO BID for 30 Days, #60 TAB Metoprolol Succinate (Metoprolol Succinate ER) 25 Mg Tabcr 25 MG PO QAM for 30 Days, #30 TAB Continued Medications: Albuterol Hfa (Ventolin Hfa) 200 Puffs/43989 Mcg Aers 2 PUFFS INH Q4 PRN for SOB/Wheezing, #1 INHALER Apixaban (Eliquis) 5 Mg Tab 5 MG PO BID for 30 Days, #60 TAB 3 Refills Ascorbic Acid (Vitamin C) 500 Mg Cap 1 CAP PO BID Atorvastatin (Lipitor) 40 Mg Tab 40 MG PO QPM, TAB Cholecalciferol (Vitamin D) 400 Unit Tab 400 UNITS PO DAILY Fish Oil ([place]-3) 1 Ea Cap 1 CAP PO DAILY, CAP Fluticasone Propionate (Flovent Hfa) 120 Puffs/05652 Mcg Aero 2 PUFFS INH BID for 30 Days, #1 INHALER 3 Refills Fluticasone Propionate (Inhala (Flovent Diskus) 100 Mcg/Blist Aer 2 PUFFS INH BID, #1 INHALER 3 Refills Losartan Potassium (Losartan Potassium) 25 Mg Tab 25 MG PO QAM, #30 TAB 2 Refills Montelukast Sodium (Singulair) 10 Mg Tab 10 MG PO DAILY, TAB Multivitamins/Minerals (Mvi With Minerals) Tab 1 TAB PO DAILY, TAB Sertraline (Zoloft) 100 Mg Tab 100 MG PO DAILY, TAB Discontinued Medications: Metoprolol Succinate (Metoprolol Succinate ER) 50 Mg Tabcr 50 MG PO BID, #60 2 Refills Admission Information HPI (per Admitting provider): Patient is a 62yo F with a PMH of Atrial Fibrillation, HTN, HLD and other medical problems listed below who presents as a direct admit from Dr. Romero' s office for A Fib with RVR. Was recently admitted from July 22- of this year for new onset A Fib with RVR and newly reduced systolic function with EF ~ 45%. Was initiated on metoprolol succinate and Eliquis for anticoagulation prior to discharge home. Underwent a successful cardioversion on 08/19/[address] Romero and was found to be in sinus bradycardia following cardioversion. Due to bradycardia and cardiac risk factors, a nuclear stress test was performed on 08/26/17 without evidence of inducible ischemia. EF also was found to be normalized at this point. Patient states that she felt well from the time of cardioversion until approximately a week ago, when she began experiencing dyspnea on exertion with walking around the house. Had an EKG performed at cardiac clinic today that showed A Fib with RVR at 124 bpm. Was directly admitted to telemetry floor for possible cardioversion and medical management. In addition to dyspnea on exertion, is also experiencing diaphoresis and dizziness with positional changes. Had mild abdominal discomfort last evening that has since resolved. Denies chest pain or syncopal episodes. Denies fever, chills, abdominal pain, nausea, vomiting, bowel or bladder changes or LE swelling. Has been taking Eliquis regularly at home and last dose was this AM. Has not had anything to eat today. 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 Status: Resolved Social History Problems: (1) Former tobacco use Status: Resolved Family History FH: bipolar disorder Kidney disease MOTHER Social History Smoking Status: Former Smoker Alcohol Use: occasionally (1-2 drinks/week ) Drug Use: none Marital Status: single Occupational Status: retired Allergies Coded Allergies: Latex (Verified Allergy, Mild, RASH, 07/21/17) Aspirin (Verified Allergy, Unknown, 09/06/10) Erythromycin (Verified Allergy, Unknown, 09/06/10) Sulfa Drugs (Verified Allergy, Unknown, 09/06/10) Home Medications Scheduled Apixaban (Eliquis), 5 MG PO BID Ascorbic Acid (Vitamin C), 1 CAP PO BID Atorvastatin (Lipitor), 40 MG PO QPM Cholecalciferol (Vitamin D), 400 UNITS PO DAILY Fish Oil ([place]-3), 1 CAP PO DAILY Fluticasone Propionate (Flovent Hfa), 2 PUFFS INH BID Fluticasone Propionate (Inhala (Flovent Diskus), 2 PUFFS INH BID Losartan Potassium (Losartan Potassium), 25 MG PO QAM Metoprolol Succinate (Metoprolol Succinate ER), 50 MG PO BID Montelukast Sodium (Singulair), 10 MG PO DAILY Multivitamins/Minerals (Mvi With Minerals), 1 TAB PO DAILY Sertraline (Zoloft), 100 MG PO DAILY Scheduled PRN Albuterol Hfa (Ventolin Hfa), 2 PUFFS INH Q4 PRN for SOB/Wheezing Review of Systems Ten systems reviewed and negative except as noted in the HPI. Physical Exam Vital Signs Date Time Temp Pulse Resp B/P (MAP) Pulse Ox O2 Delivery O2 Flow Rate FiO2 10/08/17 11:14 36.8 105 18 141/85 96 Room Air General Appearance: WD/WN, + mild distress (dizzy with movement ) Head: normocephalic, atraumatic Eyes: normal inspection, PERRL, sclerae normal ENT: normal ENT inspection, hearing grossly normal, pharynx normal (mucous membranes moist) Neck: supple, thyroid normal, trachea midline Respiratory/Chest: chest non-tender, lungs clear, normal breath sounds, no respiratory distress, no accessory muscle use Cardiovascular: no edema, + tachycardia, + irregularly irregular Abdomen/GI: non tender, soft, no organomegaly Extremities/Musculoskelatal: normal inspection, no calf tenderness, no pedal edema Neurologic/Psych: no motor/sensory deficits, alert, normal mood/affect, oriented x 3 Skin: normal color, warm/dry Diagnostics Laboratory Results Results Past 24 Hours Test 10/08/17 11:43 Range/Units EKG A Fib with RVR at 109 bpm. Rightward axis., QTC:484 Impression Assessment and Plan Patient is a 62yo F with a PMH of Atrial Fibrillation, HTN, HLD and other medical problems listed below who presents as a direct admit from Dr. Romero' s office for A Fib with RVR. A Fib with RVR -Recurrent, symptomatic with exertional dyspnea, dizziness -Sent from Dr. Romero's office with EKG findings of A Fib with RVR at 124 bpm -Plan for possible cardioversion today -May initiate Multaq anti-arrhythmic, reduce metoprolol succinate -Cardio consulted - Dr. Lay to evaluate -Keep NPO except meds -Continue Eliquis HTN -Normotensive -Continue losartan HLD -Continue statin H/o migraines -[place] PRN H/o reduced systolic function -- improved -Echo performed in July 2017 with EF of 45% -Repeat echo in mid-August with normalized EF H/o of prolonged QTc -QTc on today's EKG normal at 484 -Avoid qt prolonging meds H/o Hep C DVT Ppx: Continue Eliquis Code status: FULL PCP: Umberto Dispo: Admit to telemetry. Plan to return home once medically stable. Patient seen in collaboration with . Please see addendum. Attending Note: Patient is a 62-year-old female with history of atrial fibrillation, hypertension and other problems was a direct admit from 's office for management of symptomatic A. fib with RVR. Patient underwent successful cardioversion today as per the recommendations of her feather separator. 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 Patient was doing well after the cardioversion but complains of dizziness especially when lying down. Patient started on Multaq and metoprolol for rate control. On exam patient is obese, no distress, Breath sounds are diminished, CTA, S, S2, regular, No edema, No Murmur. Her Heart rate is controlled currently. Patient is admitted in telemetry. Plan to continue Multaq, Metoprolol and eliquis. QTC will be monitored with daily EKG. Monitor electrolytes and replace as needed. Cardiology was consulted. Will start on Meclizine PRN for dizziness. PT will be consulted for Laine's. May benefit from ENT eval as outpatient. I personally reviewed the record. Patient is interviewed and examined at bedside. Patient's care is coordinated with Lis Rodriguez PA-C. Please refer to the documentation above for details of patient's presentation and for discussion of other issues. Advanced Directives Existing Living Will: No Existing Power of Doughnut Maker: No Resuscitation Status VTE Prophylaxis Will order VTE Prophylaxis: Yes <Electronically signed by Lis Rodriguez P.A.-C.> <Electronically signed by Last Nguyen MD> Signed: 10/08/17 3821 Physical Exam (per Admitting): General Appearance: WD/WN, + mild distress (dizzy with movement ) Head: normocephalic, atraumatic Eyes: normal inspection, PERRL, sclerae normal ENT: normal ENT inspection, hearing grossly normal, pharynx normal (mucous membranes moist) Neck: supple, thyroid normal, trachea midline Respiratory/Chest: chest non-tender, lungs clear, normal breath sounds, no respiratory distress, no accessory muscle use Cardiovascular: no edema, + tachycardia, + irregularly irregular Abdomen/GI: non tender, soft, no organomegaly Extremities/Musculoskelatal: normal inspection, no calf tenderness, no pedal edema Neurologic/Psych: no motor/sensory deficits, alert, normal mood/affect, oriented x 3 Skin: normal color, warm/dry Hospital Course Patient is a 62yo F with a PMH of Atrial Fibrillation, HTN, HLD and other medical problems listed below who presents as a direct admit from Dr. Romero' s office for A Fib with RVR. A Fib with RVR -Recurrent, symptomatic with exertional dyspnea, dizziness -Sent from Dr. Romero's office with EKG findings of A Fib with RVR at 124 bpm -Reverted to sinus rhythm on admission -Started on Multaq anti-arrhythmic, reduce metoprolol succinate -Appreciate cardiology input and recommendation -Continue Eliquis -Remains in sinus rhythm as of today -Remains in sinus rhythm with controlled rate -Denies any symptoms and will be discharged home today Dizziness Likely secondary to labyrinthitis If continues will give some meclizine on discharge Improved dizziness with the [place] maneuver We will have physical therapy today and go home this afternoon Was advised to take precaution to avoid fall HTN -Normotensive -Continue losartan HLD -Continue statin H/o migraines -[place] PRN H/o reduced systolic function -- improved -Echo performed in July 2017 with EF of 45% -Repeat echo in mid-August with normalized EF -As per cardiology H/o of prolonged QTc -QTc on today's EKG normal at 484 -Avoid qt prolonging meds H/o Hep C DVT Ppx: Continue Eliquis Code status: FULL PCP: Umberto Dispo: Admit to telemetry. Plan to return home once medically stable. Likely discharge today Total time spent on discharge = 35 minutes This includes examination of the patient, discharge planning, medication reconciliation, and communication with other providers. Discharge Instructions Date of Service Oct 10, 2017. Admission Reason for Admission: A Fib W/ Rvr Discharge Discharge Diagnosis / Problem: PAF with RVR-Resolved Discharge Goals Goal(s): Prevent Disease Progression Activity Recommendations Activity Limitations: resume your previous activity . Instructions / Follow-Up Instructions / Follow-Up Dr Liu on 10/14/17 at 11:15PM.Dr Romero's office will call with appointment Current Hospital Diet Patient's current hospital diet: AHA Diet (Heart Healthy) Discharge Diet Recommended Diet: AHA Diet (Heart Healthy) Procedures Procedures Performed: External direct current cardioversion Pending Studies Studies pending at discharge: no Laboratory Results Hemoglobin A1c Test 07/22/17 07:00 Range/Units Estimated Average Glucose 146 mg/dl Hemoglobin A1c 6.7 H 4.5-5.6 % Medical Emergencies . Who to Call and When: Medical Emergencies: If at any time you feel your situation is an emergency, please call 911 immediately. . Non-Emergent Contact Non-Emergency issues call your: Primary Care Provider . Past History Medical & Surgical History: (1) Atrial fibrillation (2) Atrial fibrillation with RVR (3) HLD (hyperlipidemia) (4) Mitral regurgitation (5) H/O migraine . "Provider Documentation" section prepared by Arturo Boland. . <Electronically signed by Arturo Boland M.D.> Signed: 10/10/17 1197 Additional Copies To Queenie Shipman D.O.
== END 2017-10-10 15:27 | disposition home or self-care (01) | DRG 310 ==
LOC: C.2T 10:50 → UNDOADMIN 10:50
PROVIDERS: ADMIT Internal Medicine; ATTEND Internal Medicine
PROC: 5A2204Z Restoration of Cardiac Rhythm, Single (ICD-10-PCS; principal; 2017-10-08 12:57)
DX: I48.0 Paroxysmal atrial fibrillation (principal); I10 Essential (primary) hypertension; H83.09 Labyrinthitis, unspecified ear; E78.5 Hyperlipidemia, unspecified; F90.9 Attention-deficit hyperactivity disorder, unspecified type; B18.2 Chronic viral hepatitis C; I34.0 Nonrheumatic mitral (valve) insufficiency; Z87.891 Personal history of nicotine dependence; Z91.040 Latex allergy status; Z88.6 Allergy status to analgesic agent; Z88.2 Allergy status to sulfonamides

== ENCOUNTER 2022-08-15 12:26 | Inpatient (IN) ==
[2022-08-15] MEDS ORDERED: OPTIRAY 320 125ml IV ONE (14:02)
--- NOTE | 2022-08-15 14:05 | Emergency Department Note ---
History of Present Illness General Chief complaint: Dizziness Stated complaint: DIZZINESS, HEADACHE Time Seen by Provider: 08/15/22 13:29 Source: patient and family (Sister at bedside) History of Present Illness Provider complaint: Headache and fall Onset (ago): hour(s) 8 67-year-old female presents emergency department with sister For fall. Patient reports she fell at approximately 5 AM with some difficulty getting back into bed but sister got her back into bed. The sister heard that she subsequently heard the patient fall at 7:30 AM. Patient is reporting headache right hip pain and left elbow pain. Patient is on Eliquis. Patient did have a cardioversion with Dr. Eastman done yesterday. Home Medications Medication Instructions Recorded Confirmed Type apixaban 5 mg tablet (Eliquis) 5 mg PO BID 01/06/18 08/15/22 History ascorbic acid (vitamin C) 1,000 mg 500 mg PO QAM 01/06/18 08/15/22 History tablet (Vitamin C) atorvastatin 40 mg tablet 40 mg PO HS 01/06/18 08/15/22 History cholecalciferol (vitamin D3) 10 400 unit PO QAM 01/06/18 08/15/22 History mcg (400 unit) tablet (Vitamin D3) multivitamin 1 tab PO QAM 01/06/18 08/15/22 History omega 9-yfd-ewv-fish oil 1,000 mg 1 cap PO .Q3DAYS 01/06/18 08/15/22 History (120 mg-180 mg) capsule (Fish Oil) bupropion HCl 300 mg 24 hr tablet, 300 mg PO QAM 07/22/20 08/15/22 History extended release acetaminophen 325 mg tablet 650 mg PO QID PRN Pain 11/29/21 08/15/22 History calcium carbonate 600 mg calcium 600 mg PO QAM 11/29/21 08/15/22 History (1,500 mg) tablet cetirizine 10 mg tablet 10 mg PO HS 11/29/21 08/15/22 History ciclopirox 8 % topical solution 1 applic topical HS 11/29/21 08/15/22 History diclofenac sodium 1 % topical gel 2 g topical QID PRN Pain 11/29/21 08/15/22 History dulaglutide 3 mg/0.5 mL 3 mg subcut WK 11/29/21 08/15/22 History subcutaneous pen injector (Trulicity) epinephrine 0.3 mg/0.3 mL 0.3 mg IM Q4H PRN Allergic Reaction 11/29/21 08/15/22 History injection, auto-injector fluticasone fur. 200 mcg-umeclid 1 inh inhalation QAM 11/29/21 08/15/22 History 62.5 mcg-vilant 25 mcg inhalat.powder (Trelegy Ellipta) losartan 50 mg tablet (Cozaar) 50 mg PO QAM 11/29/21 08/15/22 History mepolizumab 100 mg/mL subcutaneous 100 mg subcut .[id number] 11/29/21 08/15/22 History auto-injector (Nucala) metformin 500 mg tablet 500 mg PO BID 11/29/21 08/15/22 History montelukast 10 mg tablet 10 mg PO HS 11/29/21 08/15/22 History (Singulair) mupirocin 2 % topical ointment 1 applic topical BID PRN nasal 11/29/21 08/15/22 History dryness albuterol sulfate 2.5 mg/3 mL 2.5 mg inhalation DIRECTED PRN 07/24/22 08/15/22 History (0.083 %) solution for nebulization shortness of breath albuterol sulfate 90 mcg/actuation 2 puff inhalation Q4 PRN Shortness 07/24/22 08/15/22 History aerosol inhaler Of Breath Or Wheezing metoprolol succinate 50 mg 100 mg PO BID 07/24/22 08/15/22 History tablet,extended release 24 hr amiodarone 200 mg tablet 200 mg PO BID 08/08/22 08/15/22 History levalbuterol HCl 1.25 mg/3 mL 1.25 mg inhalation DIRECTED PRN 08/15/22 08/15/22 History solution for nebulization Shortness Of Breath Or Wheezing Allergies Allergy/AdvReac Type Severity Reaction Status Date / Time erythromycin base Allergy Severe Rash Verified 08/15/22 15:20 Sulfa (Sulfonamide Allergy Severe Rash Verified 08/15/22 15:20 Antibiotics) aspirin Allergy Intermediate Rash Verified 08/15/22 15:20 latex Allergy Intermediate RASH Verified 08/15/22 15:20 Past Med/Surg History Medical History (Updated 08/15/22 @ 18:25 by Ron Whittington MD) ADD (attention deficit disorder) Asthma inhaler daily/nebulizer prn Atrial fibrillation follows with Dr. Romero--on eliquis/metoprolol/amiodarone Cardiac murmur Cardiomyopathy Tachycardiac vs idopathic CM (EF 48% in 2018- improved to 55% in 11/2021). Negative nuclear stress test 2017 and 01/2022 COPD (chronic obstructive pulmonary disease) Per records Depression H/O migraine Hepatitis C IN REMISSION HLD (hyperlipidemia) HTN (hypertension) Hyperthyroidism RADIOACTIVE IODINE TREATMENT Left ventricular systolic dysfunction (LVSD) History of dynamic ventricular outflow tract obstruction No significant LV outflow tract obstruction noted on resting ECHO 11/2021 per cardio records Mitral regurgitation Morbid obesity with BMI of 40.0-44.9, adult On anticoagulant therapy eliquis daily Prediabetes per pt reason for metformin Sleep apnea CPAP Surgical History History of appendectomy History of cardiac radiofrequency ablation x2--last 06/24/22 @ [facility] [place], [place] History of cardioversion x4--last 07/24/22---follows with Dr. Romero also had 03/06/22, 11/2021 and 01/2018 History of colonoscopy History of esophagogastroduodenoscopy (EGD) with EUS @ [facility] 04/19/22 History of tooth extraction Hx of breast biopsy S/P ovarian cystectomy Family History Grandfather Family hx of colon cancer Family/Other Family history of diabetes mellitus Other No family history of adverse response to anesthesia Social History Smoking Status: Former smoker Tobacco Type: Cigarettes Second Hand Exposure: No; Do You Dip or Chew Tobacco: No; Hx Alcohol Use: Yes Alcohol type: wine Hx Substance Use: No Preferred Language: [place] Communication Ability: Effective Life Assurance Representative Required: No Beliefs That Will Affect Care: None Current Living Situation: Alone Feels Safe at Home: Yes Assistive Devices: Glasses and Nebulizer Physical Exam Vital Signs Vital Signs - 24 hr 08/15/22 12:50 08/15/22 12:45 08/15/22 14:55 Temperature 36.8 C Temperature Source Oral Pulse Rate 74 71 Pulse Rate [Apical] 76 Respiratory Rate 20 26 H Respiratory Effort / Characteristics Non-Labored Spontaneous Respiratory Depth Normal Respiratory Pattern Regular Blood Pressure 157/94 H Blood Pressure [Right Arm] 158/87 H Blood Pressure Mean 115 Blood Pressure Mean [Right Arm] 110 Blood Pressure Position Semi-fowlers Blood Pressure Position [Right Arm] Lying Pulse Oximetry 95 95 Oxygen Delivery Method Room Air Sepsis Recent Fever Within 48 Hours No Sepsis New/Unexplained Change in Mental Status N/A Sepsis Action Taken by Nursing No Action Required Physical Exam HENT: Exam performed. -Head: Normocephalic and atraumatic. -Right Ear: External ear normal. No mastoid erythema -Left Ear: External ear normal. No mastoid erythema -Mouth/Throat: The oropharynx is clear and moist. No trismus in the jaw. No dental abscesses or uvula swelling. No oropharyngeal exudate or tonsillar abscesses. EYES: Conjunctivae and EOM are normal. Pupils are equal, round, and reactive to light. Right eye exhibits no discharge. Left eye exhibits no discharge. No scleral icterus. NECK: Normal range of motion. Neck supple. No JVD present. No spinous process tenderness present.No tracheal deviation and normal range of motion present. CV: Normal rate, regular rhythm, normal heart sounds and intact distal pulses. There is no peripheral edema. Palpable radial pulses bue. PULM/CHEST: Effort normal and breath sounds normal. No respiratory distress. No stridor. She has no wheezes. She has no rales. ABD: The abdomen is soft.There is no tenderness. There is no rebound, no guarding MUSC/SKEL: Normal range of motion. There is no peripheral edema, tenderness or deformity. LYMPH: No cervical adenopathy. NEURO: Patient has some ataxia on the left side in the upper and lower extremities. Left-sided extinction. Moderate expressive aphasia. NIHSS 5 (3:1, 7:2, 9:1, 11:1) Course Course 1329: The patient was evaluated in room A9. A complete history and physical exam was performed Cardiac monitoring: An order was placed for continuous cardiac monitoring. The monitor shows a rate of 70 with sinus rhythm interpreted by me Nose code stroke was called as the patient is on Eliquis, her symptoms began more than 8 hours ago, and there was reported trauma. Will take to CT to make sure there is no ICH, traumatic findings, or large vessel occlusion. 1515: Vital signs stable. CT of the head shows no ICH. No large infarct on CT or CT angio. Labs are within normal limits. [facility]. Administered Medications Discontinued Medications Diphenhydramine HCl (Diphenhydramine 50 Mg/Ml Vial) 25 mg IV NOW STA Stop: 08/15/22 15:45 Last Admin: 08/15/22 16:01 Dose: 25 mg Documented By: Magnesium Sulfate/Dextrose (Magnesium Sulfate / D5w) 1 gm in 100 mls @ 100 mls/hr IV Q1H LYLY Stop: 08/15/22 17:59 Last Infusion: 08/15/22 17:54 Dose: 0 mls/hr Documented By: Admin: 08/15/22 16:01 Dose: 100 mls/hr Documented By: Ioversol (Optiray 320 125ml) 120 ml IV ONCE ONE Stop: 08/15/22 14:03 Last Admin: 08/15/22 14:02 Dose: 120 ml Documented By: ALONZO Lorazepam (Lorazepam 2 Mg/1 Ml Vial) 0.5 mg IV ONE ONE Stop: 08/15/22 17:31 Last Admin: 08/15/22 17:24 Dose: 0.5 mg Documented By: Medical Decision Making Laboratory Data Attestation: I reviewed the patient's lab results. 08/15/22 13:03 08/15/22 13:03 Lab Results 08/15/22 08/15/22 08/15/22 Range/Units 13:03 13:03 13:03 WBC 10.41 (4.8-10.8) K/ul RBC 4.05 L (4.20-5.40) M/uL Hgb 12.6 (12.0-16.0) g/dl POC Hgb (12.0-16.0) g/dl Hct 39.1 (37.0-47.0) % POC Hct (37-47) % MCV 96.5 (80.0-100.0) fL MCH 31.1 (25.0-34.0) pg MCHC 32.2 (32.0-36.0) g/dL RDW Std Deviation 48.1 H (36.4-46.3) fL RDW Coeff of Yeyo 13.5 (11.5-14.5) % Plt Count 249 (130-400) K/uL MPV 10.4 (9.4-12.4) fL Immature Gran % (Auto) 0.3 % Neut % (Auto) 82.8 % Lymph % (Auto) 8.8 % [place] % (Auto) 7.8 % Eos % (Auto) 0.1 % Baso % (Auto) 0.2 % Neut # (Auto) 8.62 H (1.40-6.50) K/uL Lymph # (Auto) 0.92 L (1.2-3.4) K/uL [place] # (Auto) 0.81 H (0.11-0.59) K/uL Eos # (Auto) 0.01 (0-0.50) K/uL Baso # (Auto) 0.02 (0-0.2) K/uL Immature Gran # (Auto) 0.03 (0.01-0.20) K/uL PT 11.9 (9.0-12.0) Seconds INR 1.1 (0.9-1.1) APTT 27.6 (21.0-31.0) Seconds PTT Ratio 1.0 POC Sodium (135-144) mmol/L Sodium 136 (136-145) mmol/L POC Potassium (3.3-5.0) mmol/L Potassium 4.2 (3.5-5.1) mmol/L POC Chloride (101-112) mmol/L Chloride 103 (98-107) mmol/L Carbon Dioxide 26 (21-32) mmol/L POC Total CO2 (24-31) mmol/L Anion Gap 7 (3-11) POC Anion Gap (16-25) mmol/L POC BUN (7-18) mg/dl BUN 18 (6-23) mg/dl Creatinine 0.85 (0.6-1.2) mg/dl POC Creatinine (0.6-1.3) mg/dl Est Cr Clr Drug Dosing 80.0 ml/min Est GFR ( Amer) 81.6 ml/min Est GFR (Non-Af Amer) 70.4 ml/min BUN/Creatinine Ratio 21.2 H (10-20) Glucose 118 H (70-99(Fasting)) mg/dl POC Glucose (other) (70-99) mg/dl Calcium 9.4 (8.6-10.3) mg/dl POC Ioniz Calcium Zoey (1.12-1.32) mmol/l Magnesium 1.6 L (1.7-2.4) mg/dl Total Bilirubin 0.8 (0.2-1.0) mg/dl AST 18 (13-39) U/L ALT 16 (7-52) U/L Alkaline Phosphatase 49 (34-104) U/L Total Creatine Kinase 77 (26-192) U/L Troponin I High Sens 31.1 H (0-14) pg/ml Total Protein 6.8 (6.0-8.3) gm/dl Albumin 4.0 (3.4-5.0) gm/dl Globulin 2.8 (2.5-4.0) gm/dl Albumin/Globulin Ratio 1.4 (0.9-2) SARS-CoV-2, RNA, NAAT (NEGATIVE) Blood Type Antibody Screen 08/15/22 08/15/22 08/15/22 Range/Units 13:51 14:33 15:22 WBC (4.8-10.8) K/ul RBC (4.20-5.40) M/uL Hgb (12.0-16.0) g/dl POC Hgb 14.3 (12.0-16.0) g/dl Hct (37.0-47.0) % POC Hct 42 (37-47) % MCV (80.0-100.0) fL MCH (25.0-34.0) pg MCHC (32.0-36.0) g/dL RDW Std Deviation (36.4-46.3) fL RDW Coeff of Yeyo (11.5-14.5) % Plt Count (130-400) K/uL MPV (9.4-12.4) fL Immature Gran % (Auto) % Neut % (Auto) % Lymph % (Auto) % [place] % (Auto) % Eos % (Auto) % Baso % (Auto) % Neut # (Auto) (1.40-6.50) K/uL Lymph # (Auto) (1.2-3.4) K/uL [place] # (Auto) (0.11-0.59) K/uL Eos # (Auto) (0-0.50) K/uL Baso # (Auto) (0-0.2) K/uL Immature Gran # (Auto) (0.01-0.20) K/uL PT (9.0-12.0) Seconds INR (0.9-1.1) APTT (21.0-31.0) Seconds PTT Ratio POC Sodium 137 (135-144) mmol/L Sodium (136-145) mmol/L POC Potassium 4.3 (3.3-5.0) mmol/L Potassium (3.5-5.1) mmol/L POC Chloride 101 (101-112) mmol/L Chloride (98-107) mmol/L Carbon Dioxide (21-32) mmol/L POC Total CO2 22 L (24-31) mmol/L Anion Gap (3-11) POC Anion Gap 20.0 (16-25) mmol/L POC BUN 20 H (7-18) mg/dl BUN (6-23) mg/dl Creatinine (0.6-1.2) mg/dl POC Creatinine 0.9 (0.6-1.3) mg/dl Est Cr Clr Drug Dosing ml/min Est GFR ( Amer) ml/min Est GFR (Non-Af Amer) ml/min BUN/Creatinine Ratio (10-20) Glucose (70-99(Fasting)) mg/dl POC Glucose (other) 110 H (70-99) mg/dl Calcium (8.6-10.3) mg/dl POC Ioniz Calcium Zoey 1.19 (1.12-1.32) mmol/l Magnesium (1.7-2.4) mg/dl Total Bilirubin (0.2-1.0) mg/dl AST (13-39) U/L ALT (7-52) U/L Alkaline Phosphatase (34-104) U/L Total Creatine Kinase (26-192) U/L Troponin I High Sens (0-14) pg/ml Total Protein (6.0-8.3) gm/dl Albumin (3.4-5.0) gm/dl Globulin (2.5-4.0) gm/dl Albumin/Globulin Ratio (0.9-2) SARS-CoV-2, RNA, NAAT NEGATIVE (NEGATIVE) Blood Type A Positive Antibody Screen NEGATIVE Imaging Data Attestation: I personally reviewed and interpreted this imaging study as follows: My Impression: CT head: No ICH Radiologist's Impression: Cervical Spine CT 08/15/22 13:37 CT cervical spine wo con CLINICAL HISTORY: fall TECHNIQUE: Multidetector row helical CT of the cervical spine was performed without administration of intravenous contrast. Coronal and sagittal reformations were obtained. Automated dose lowering techniques and/or adjustment according to patient size were utilized for this exam. Comparison: Comparison is made to CTA neck 08/15/2022 FINDINGS: No acute fractures or subluxations are identified. The vertebral body heights and disk spaces are well maintained. The alignment is normal. There is a 24 mm right thyroid nodule. IMPRESSION: 1. Degenerative changes without evidence of acute bony injury. 2. Prominent right thyroid nodule. If not previously evaluated a nonemergent thyroid ultrasound can be performed. ACT 112: Negative or not required by law. Electronically signed by: Chong Cook M.D. 08/15/2022 2:26 PM Abdomen/Pelvis CT 08/15/22 13:38 CT OF THE ABDOMEN AND PELVIS WITH CONTRAST CLINICAL HISTORY: Fall. COMPARISON STUDY: None. TECHNIQUE: Following IV administration of 120 mL of Optiray, axial images of the abdomen and pelvis were obtained from the lung bases to the proximal femurs. Images were reviewed in the axial, sagittal, and coronal planes. IV contrast was administered without complication. Automated exposure control was utilized for the study. A dose lowering technique was utilized adhering to the principles of ALARA. FINDINGS: A trace right pleural effusion is present. There is cardiomegaly. No hemoperitoneum or pneumoperitoneum is present. There is no evidence for traumatic injury to the liver, spleen, adrenal glands, kidneys or pancreas. There is no biliary ductal dilatation. Colonic diverticulosis is noted. There is no evidence for acute diverticulitis. There is no free fluid. There is no lymphadenopathy. No acute fractures are identified within the visualized skeletal structures. Possible appendiceal stump is noted. No evidence for appendicitis. IMPRESSION: No acute traumatic findings within the abdomen or pelvis. ACT 112: Negative or not required by law. Electronically signed by: Pelon Osuna M.D. 08/15/2022 2:40 PM Chest X-Ray 08/15/22 13:38 XR chest 1V portable CLINICAL HISTORY: neuro deficit, acute stroke suspected TECHNIQUE: Single frontal radiograph of the chest was obtained. Comparison: Comparison is made to chest radiograph 07/24/2022 FINDINGS: No lines and tubes are seen. Cardiomegaly is noted. The aortic arch is calcified. Prominence and cephalization of the vasculature is seen. Right airspace opacity is seen. No evidence of pleural effusion or pneumothorax. IMPRESSION: Cardiomegaly and mild pulmonary edema. Faint right airspace opacity may reflect atelectasis, pneumonia, and/or aspiration. ACT 112: Negative or not required by law. Electronically signed by: Chong Cook M.D. 08/15/2022 2:45 PM Elbow X-Ray 08/15/22 13:38 XR elbow LT min 3V routine HISTORY: 67 years-old Female fall acute left elbow pain status post fall COMPARISON: None TECHNIQUE: 3 views of the left elbow FINDINGS: IV catheter. Extravasation of contrast in the antecubital fossa. No acute fracture, dislocation or large joint effusion. IMPRESSION: No acute fracture or dislocation. ACT 112: Negative or not required by law. The above report was generated using voice recognition software. It may contain grammatical, syntax or spelling errors. Electronically signed by: Morris Garcia M.D. 08/15/2022 2:[address] 08/15/22 13:38 CT angio head w con, CT angio neck with con, CT head/brain wo con CLINICAL HISTORY: 67 years-old Female with neuro deficit, acute stroke suspected. Acute strokelike symptoms COMPARISON STUDY: CT cervical spine of same day, CT maxillofacial 09/01/2010 TECHNIQUE: Unenhanced axial CT scan of the brain is performed. Subsequently, following the IV administration of 120 cc of Optiray, CT angiogram of the head and neck was performed from the skull base to the aortic arch to the skull apex. Images are reviewed in the axial, sagittal, and coronal planes. 3-D MIPS images are created and assessed. IV contrast was administered without complication. All measurements were obtained according to NASCET criteria. A dose lowering technique was utilized adhering to the principles of ALARA. CT DOSE: 3289.13 mGy.cm FINDINGS: CT BRAIN: There is no acute intracranial hemorrhage, midline shift, hydrocephalus, intracranial mass, territorial ischemia or abnormal extra-axial collections. No abnormal intra-axial or extra-axial enhancement. Involutional changes with chronic microvascular ischemic disease. Study is motion degraded. Mastoid air cells and middle ear cavities are clear. No calvarial fracture. 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 Paranasal sinuses are clear. CT ANGIOGRAM OF THE HEAD AND NECK: Atherosclerosis of the thoracic aortic arch. Patency of the innominate and image subclavian arteries. Common carotid arteries are patent with moderate plaque of the carotid bulbs. Less than 50% stenosis within the proximal cervical segments of the internal carotid arteries. The bilateral anterior and middle cerebral art eries are also patent. The vertebrobasilar system and posterior cerebral arteries are widely patent. Calcified plaque of the V4 segment left vertebral artery results in approximately 50% stenosis. 50% stenosis of the left posterior cerebral artery on image 105 series 7. There is no aneurysm, high-grade stenosis, or proximal branch occlusion identified. Dural sinuses appear patent. Right pleural effusion. Multinodular thyroid goiter. Interlobular septal thickening in the lungs. Unremarkable soft tissues. Degenerative changes of the cervical spine. IMPRESSION: 1. No acute intracranial abnormality. 2. Unremarkable CTA of the head and neck. 3. Suggested pulmonary edema with right pleural effusion. ACT 112: Negative or not required by law. The above report was generated using voice recognition software. It may contain grammatical, syntax or spelling errors. Electronically signed by: Morris Garcia M.D. 08/15/2022 2:53 PM Head CTA 08/15/22 13:38 CT angio head w con, CT angio neck with con, CT head/brain wo con CLINICAL HISTORY: 67 years-old Female with neuro deficit, acute stroke suspected. Acute strokelike symptoms COMPARISON STUDY: CT cervical spine of same day, CT maxillofacial 09/01/2010 TECHNIQUE: Unenhanced axial CT scan of the brain is performed. Subsequently, following the IV administration of 120 cc of Optiray, CT angiogram of the head and neck was performed from the skull base to the aortic arch to the skull apex. Images are reviewed in the axial, sagittal, and coronal planes. 3-D MIPS images are created and assessed. IV contrast was administered without complication. All measurements were obtained according to NASCET criteria. A dose lowering technique was utilized adhering to the principles of ALARA. CT DOSE: 3289.13 mGy.cm FINDINGS: CT BRAIN: There is no acute intracranial hemorrhage, midline shift, hydrocephalus, intracranial mass, territorial ischemia or abnormal extra-axial collections. No abnormal intra-axial or extra-axial enhancement. Involutional changes with chronic microvascular ischemic disease. Study is motion degraded. Mastoid air cells and middle ear cavities are clear. No calvarial fracture. 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 Paranasal sinuses are clear. CT ANGIOGRAM OF THE HEAD AND NECK: Atherosclerosis of the thoracic aortic arch. Patency of the innominate and image subclavian arteries. Common carotid arteries are patent with moderate plaque of the carotid bulbs. Less than 50% stenosis within the proximal cervical segments of the internal carotid arteries. The bilateral anterior and middle cerebral ar teries are also patent. The vertebrobasilar system and posterior cerebral arteries are widely patent. Calcified plaque of the V4 segment left vertebral artery results in approximately 50% stenosis. 50% stenosis of the left posterior cerebral artery on image 105 series 7. There is no aneurysm, high-grade stenosis, or proximal branch occlusion identified. Dural sinuses appear patent. Right pleural effusion. Multinodular thyroid goiter. Interlobular septal thickening in the lungs. Unremarkable soft tissues. Degenerative changes of the cervical spine. IMPRESSION: 1. No acute intracranial abnormality. 2. Unremarkable CTA of the head and neck. 3. Suggested pulmonary edema with right pleural effusion. ACT 112: Negative or not required by law. The above report was generated using voice recognition software. It may contain grammatical, syntax or spelling errors. Electronically signed by: Morris Garcia M.D. 08/15/2022 2:53 PM Neck CTA 08/15/22 13:38 CT angio head w con, CT angio neck with con, CT head/brain wo con CLINICAL HISTORY: 67 years-old Female with neuro deficit, acute stroke suspected. Acute strokelike symptoms COMPARISON STUDY: CT cervical spine of same day, CT maxillofacial 09/01/2010 TECHNIQUE: Unenhanced axial CT scan of the brain is performed. Subsequently, following the IV administration of 120 cc of Optiray, CT angiogram of the head and neck was performed from the skull base to the aortic arch to the skull apex. Images are reviewed in the axial, sagittal, and coronal planes. 3-D MIPS images are created and assessed. IV contrast was administered without complication. All measurements were obtained according to NASCET criteria. A dose lowering technique was utilized adhering to the principles of ALARA. CT DOSE: 3289.13 mGy.cm FINDINGS: CT BRAIN: There is no acute intracranial hemorrhage, midline shift, hydrocephalus, intracranial mass, territorial ischemia or abnormal extra-axial collections. No abnormal intra-axial or extra-axial enhancement. Involutional changes with chronic microvascular ischemic disease. Study is motion degraded. Mastoid air cells and middle ear cavities are clear. No calvarial fracture. 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 Paranasal sinuses are clear. CT ANGIOGRAM OF THE HEAD AND NECK: Atherosclerosis of the thoracic aortic arch. Patency of the innominate and image subclavian arteries. Common carotid arteries are patent with moderate plaque of the carotid bulbs. Less than 50% stenosis within the proximal cervical segments of the internal carotid arteries. The bilateral anterior and middle cerebral a rteries are also patent. The vertebrobasilar system and posterior cerebral arteries are widely patent. Calcified plaque of the V4 segment left vertebral artery results in approximately 50% stenosis. 50% stenosis of the left posterior cerebral artery on image 105 series 7. There is no aneurysm, high-grade stenosis, or proximal branch occlusion identified. Dural sinuses appear patent. Right pleural effusion. Multinodular thyroid goiter. Interlobular septal thickening in the lungs. Unremarkable soft tissues. Degenerative changes of the cervical spine. IMPRESSION: 1. No acute intracranial abnormality. 2. Unremarkable CTA of the head and neck. 3. Suggested pulmonary edema with right pleural effusion. ACT 112: Negative or not required by law. The above report was generated using voice recognition software. It may contain grammatical, syntax or spelling errors. Electronically signed by: Morris Garcia M.D. 08/15/2022 2:53 PM Pelvis X-Ray 08/15/22 13:38 XR pelvis 1-2V routine CLINICAL HISTORY: fall COMPARISON: CT of the abdomen and pelvis performed earlier today. FINDINGS: Sacroiliac joints and symphysis pubis are intact. No acute fracture within the pelvis or hips is identified. There is mild bilateral hip osteoarthritis. IMPRESSION: No acute fracture within the pelvis or hips. ACT 112: Negative or not required by law. Electronically signed by: Pelon Osuna M.D. 08/15/2022 2:34 PM ECG Data Attestation: I personally reviewed and interpreted this ECG as follows: Rate (beats per minute): 74 Rhythm: + normal sinus ECG Intervals/blocks: + Normal QRS, + Normal [place] and + Normal QT-c ECG ST segments: + Normal ST segments MDM Narrative 1329: The patient was evaluated in room A9. A complete history and physical exam was performed Cardiac monitoring: An order was placed for continuous cardiac monitoring. The monitor shows a rate of 70 with sinus rhythm interpreted by me Nose code stroke was called as the patient is on Eliquis, her symptoms began more than 8 hours ago, and there was reported trauma. Will take to CT to make sure there is no ICH, traumatic findings, or large vessel occlusion. 1515: Vital signs stable. CT of the head shows no ICH. No large infarct on CT or CT angio. Labs are within normal limits. [facility] Impression & Plan Stroke-like symptoms Discharge Plan Visit Data Chief Complaint: Dizziness Stated Complaint: DIZZINESS, HEADACHE ED Provider: Ron Whittington Discharge Problem: Stroke-like symptoms Patient Disposition: Admitted As Inpatient Discharge Instructions Interventions: ED Discharge Assessment Last Done: 08/15/22 17:49
[2022-08-15 14:29] LABS: INR 1.1 (0.9-1.1); Partial Thromboplastin Time 27.6 Seconds (21.0-31.0); Prothrombin Time 11.9 Seconds (9.0-12.0)
--- NOTE | 2022-08-15 14:29 | CT Scan Report ---
CT cervical spine wo con CLINICAL HISTORY: fall TECHNIQUE: Multidetector row helical CT of the cervical spine was performed without administration of intravenous contrast. Coronal and sagittal reformations were obtained. Automated dose lowering techn iques and/or adjustment according to patient size were utilized for this exam. Comparison: Comparison is made to CTA neck 08/15/2022 FINDINGS: No acute fractures or subluxations are identified. The vertebral body heights and disk spaces are wel l maintained. The alignment is normal. There is a 24 mm right thyroid nodule. IMPRESSION: 1. Degenerative changes without evidence of acute bony injury. 2. Prominent right thyroid nodule. If not previously evaluated a nonemergent thyroid ultrasound can be performed. ACT 112: Negative or not required by law. Electronically signed by: Chong Cook M.D. 08/15/2022 2:26 PM
--- NOTE | 2022-08-15 14:36 | XRay Report ---
XR pelvis 1-2V routine CLINICAL HISTORY: fall COMPARISON: CT of the abdomen and pelvis performed earlier today. FINDINGS: Sacroiliac joints and symphysis pubis are intact. No acute fracture within the pelvis or h ips is identified. There is mild bilateral hip osteoarthritis. IMPRESSION: No acute fracture within the pelvis or hips. ACT 112: Negative or not required by law. Electronically signed by: Pelon Osuna M.D. 08/15/2022 2:34 PM
--- NOTE | 2022-08-15 14:38 | XRay Report ---
XR elbow LT min 3V routine HISTORY: 67 years-old Female fall acute left elbow pain status post fall COMPARISON: None TECHNIQUE: 3 views of the left elbow FINDINGS: IV catheter. Extravasation of contrast in the antecubital fossa. No acute fracture, dislocation or la rge joint effusion. IMPRESSION: No acute fracture or dislocation. ACT 112: Negative or not required by law. The above report was generated using voice recognition software. It may contain grammatical, syntax o r spelling errors. Electronically signed by: Morris Garcia M.D. 08/15/2022 2:37 PM
[2022-08-15 14:42] LABS: Basophils # (auto) 0.02 K/uL (0-0.2); Basophils % (auto) 0.2 %; Eosinophils # (auto) 0.01 K/uL (0-0.50); Eosinophils % (auto) 0.1 %; Hematocrit (blood only) 39.1 % (37.0-47.0); Hemoglobin 12.6 g/dl (12.0-16.0); Immature Granulocytes # (auto) 0.03 K/uL (0.01-0.20); Immature Granulocytes % (auto) 0.3 %; Lymphocytes # (auto) 0.92 K/uL (1.2-3.4); Lymphocytes % (auto) 8.8 %; Mean Corpuscular Hemoglobin 31.1 pg (25.0-34.0); Mean Corpuscular Hgb Conc 32.2 g/dL (32.0-36.0); Mean Corpuscular Volume 96.5 fL (80.0-100.0); Mean Platelet Volume 10.4 fL (9.4-12.4); Monocytes # (auto) 0.81 K/uL (0.11-0.59); Monocytes % (auto) 7.8 %; Neutrophils # (auto) 8.62 K/uL (1.40-6.50); Neutrophils % (auto) 82.8 %; Platelet Count 249 K/uL (130-400); RDW Coefficient of Variation 13.5 % (11.5-14.5); RDW Standard Deviation 48.1 fL (36.4-46.3); Red Blood Count 4.05 M/uL (4.20-5.40); White Blood Count 10.41 K/ul (4.8-10.8)
--- NOTE | 2022-08-15 14:42 | CT Scan Report ---
CT OF THE ABDOMEN AND PELVIS WITH CONTRAST CLINICAL HISTORY: Fall. COMPARISON STUDY: None. TECHNIQUE: Following IV administration of 120 mL of Optiray, axial images of the abdomen and pelvis w ere obtained from the lung bases to the proximal femurs. Images were reviewed in the axial, sagittal, and coronal planes. IV contrast was administered without complication. Automated exposure control w as utilized for the study. A dose lowering technique was utilized adhering to the principles of LELIA Sheehan. FINDINGS: A trace right pleural effusion is present. There is cardiomegaly. No hemoperitoneum or pneu moperitoneum is present. There is no evidence for traumatic injury to the liver, spleen, adrenal glan ds, kidneys or pancreas. There is no biliary ductal dilatation. Colonic diverticulosis is noted. Ther e is no evidence for acute diverticulitis. There is no free fluid. There is no lymphadenopathy. No ac deon fractures are identified within the visualized skeletal structures. Possible appendiceal stump is noted. No evidence for appendicitis. IMPRESSION: No acute traumatic findings within the abdomen or pelvis. ACT 112: Negative or not required by law. Electronically signed by: Pelon Osuna M.D. 08/15/2022 2:40 PM
[2022-08-15 14:47] LABS: Albumin Globulin Ratio 1.4 (0.9-2); BUN Creatinine Ratio 21.2 (10-20); Bilirubin,Total 0.8 mg/dl (0.2-1.0); Calcium 9.4 mg/dl (8.6-10.3); Est GFR (African American) 81.6 ml/min; Est GFR (Non-African American) 70.4 ml/min; Globulin 2.8 gm/dl (2.5-4.0); Magnesium 1.6 mg/dl (1.7-2.4); Potassium 4.2 mmol/L (3.5-5.1); Total Protein 6.8 gm/dl (6.0-8.3)
--- NOTE | 2022-08-15 14:47 | XRay Report ---
XR chest 1V portable CLINICAL HISTORY: neuro deficit, acute stroke suspected TECHNIQUE: Single frontal radiograph of the chest was obtained. Comparison: Comparison is made to chest radiograph 07/24/2022 FINDINGS: No lines and tubes are seen. Cardiomegaly is noted. The aortic arch is calcified. Prominence and ceph alization of the vasculature is seen. Right airspace opacity is seen. No evidence of pleural effusion or pneumothorax. IMPRESSION: Cardiomegaly and mild pulmonary edema. Faint right airspace opacity may reflect atelectasis, pneumoni a, and/or aspiration. ACT 112: Negative or not required by law. Electronically signed by: Chong Cook M.D. 08/15/2022 2:45 PM
[2022-08-15 14:53] LABS: Troponin I High Sensitivity 31.1 pg/ml (0-14)
--- NOTE | 2022-08-15 14:54 | CT Scan Report ---
CT angio head w con, CT angio neck with con, CT head/brain wo con CLINICAL HISTORY: 67 years-old Female with neuro deficit, acute stroke suspected. Acute strokelike symptoms COMPARISON STUDY: CT cervical spine of same day, CT maxillofacial 09/01/2010 TECHNIQUE: Unenhanced axial CT scan of the brain is performed. Subsequently, following the IV adminis tration of 120 cc of Optiray, CT angiogram of the head and neck was performed from the skull base to the aortic arch to the skull apex. Images are reviewed in the axial, sagittal, and coronal planes. 3- D MIPS images are created and assessed. IV contrast was administered without complication. All measur ements were obtained according to NASCET criteria. A dose lowering technique was utilized adhering to the principles of ALARA. CT DOSE: 3289.13 mGy.cm FINDINGS: CT BRAIN: There is no acute intracranial hemorrhage, midline shift, hydrocephalus, intracranial mass, territori al ischemia or abnormal extra-axial collections. No abnormal intra-axial or extra-axial enhancement. Involutional changes with chronic microvascular ischemic disease. Study is motion degraded. Mastoid air cells and middle ear cavities are clear. No calvarial fracture. 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 Paranasal sinuses are clear. CT ANGIOGRAM OF THE HEAD AND NECK: Atherosclerosis of the thoracic aortic arch. Patency of the innominate and image subclavian arteries. Common carotid arteries are patent with moderate plaque of the carotid bulbs. Less than 50% stenosis within the proximal cervical segments of the internal carotid arteries. The bilateral anterior and m iddle cerebral arteries are also patent. The vertebrobasilar system and posterior cerebral arteries a re widely patent. Calcified plaque of the V4 segment left vertebral artery results in approximately 5 0% stenosis. 50% stenosis of the left posterior cerebral artery on image 105 series 7. There is no an eurysm, high-grade stenosis, or proximal branch occlusion identified. Dural sinuses appear patent. Right pleural effusion. Multinodular thyroid goiter. Interlobular septal thickening in the lungs. Unr emarkable soft tissues. Degenerative changes of the cervical spine. IMPRESSION: 1. No acute intracranial abnormality. 2. Unremarkable CTA of the head and neck. 3. Suggested pulmonary edema with right pleural effusion. ACT 112: Negative or not required by law. The above report was generated using voice recognition software. It may contain grammatical, syntax o r spelling errors. Electronically signed by: Morris Garcia M.D. 08/15/2022 2:53 PM
[2022-08-15] MEDS ORDERED: diphenhydrAMINE 50 MG/ML VIAL IV STA ×2 (15:44→20:18)
[2022-08-15] MEDS: MAGNESIUM SULFATE / D5W 1 GM/100 ML BAG IV SCH ×2 (16:01→19:13)
--- NOTE | 2022-08-15 16:12 | History & Physical Report ---
Date of Service August 15, 2022 Assessment & Plan (1) Stroke-like symptoms: (2) Involuntary movements: (3) Atrial fibrillation: (4) HTN (hypertension): (5) HLD (hyperlipidemia): (6) T2DM (type 2 diabetes mellitus): (7) Sleep apnea: (8) Hypomagnesemia: Plan This is a 67-year-old female who has a significant past medical history of T2DM, HTN, HLD, COPD, LILI on CPAP, persistent atrial fibrillation status post DCCV on 08/14 anticoagulated on Eliquis, HTN, history of migraine, former tobacco use and depression with anxiety who presents to ED after sustaining a fall x2 prior to arrival. Of significance patient with persistent atrial fibrillation. Underwent DCCV yesterday, 08/14/2022, with successful conversion to normal sinus rhythm. She has remained on Eliquis uninterrupted with her last dose being this morning prior to arrival. Strokelike symptoms Involuntary movements of left upper extremity Admit to PCU Full neurological work-up for stroke rule out MRI brain Consult neurology PT/OT/ST Patient failed dysphagia screen, will keep n.p.o. for now until seen by speech or repeat dysphagia screen attempted A1c, lipid panel in a.m. Due to patient's involuntary left upper extremity movements will trial Ativan prior to MRI to aid with restlessness Lyme screen Did discuss with Dr. Romero who states pt had DCCV 3 weeks ago in ED under ketamine and did not have a good response with confusion; however yesterday received propofol and did quite well All meds on hold given NPO status with failed dysphagia screen Hypomagnesemia Replete to keep greater than 2.0 Pulmonary Edema ? R Atelectasis vs possible aspiration obtain vbg in setting of invol movements obtain procalcitonin discussed with Dr. Romero -possible component of heart failure in setting of DCCV; however given recent fall and pt asymptomatic will hold on diuretics at this point. empirically cover with IV Unasyn for now for possible aspiration Atrial fibrillation, persistent Status post DCCV, now in sinus rhythm Currently n.p.o. Continue amiodarone, metoprolol and Eliquis when able to take p.o., if unable to advance diet in a.m. will need to convert metoprolol to IV, last dose of oral was this morning Rash to L side of thorax prn anti itch cream and benadryl r/o lyme given neurologic sx T2DM Last A1c in 2021 was 6.6 Hold metformin NovoLog per protocol LILI CPAP at bedtime COPD No acute exacerbation Continue home inhalers DVT prophylaxis: Eliquis when able to resume Full code PCP: DONNA Winchester A total of 90 was spent coordinating, documenting, and providing care for this patient excluding time spent in the performance of separately billed services. This included personally viewing all current laboratories and imaging studies, medication reconciliation, outpatient chart review, and discussion with specialists. History of Present Illness Chief Complaint: Fall x 2 prior to arrival. Primary Care Provider: Garret Perry MD This is a 67-year-old female who has a significant past medical history of T2DM, HTN, HLD, COPD, LILI on CPAP, persistent atrial fibrillation status post DCCV on 08/14 anticoagulated on Eliquis, HTN, history of migraine, former tobacco use and depression with anxiety who presents to ED after sustaining a fall x2 prior to arrival. Patient woke up this morning and tried to get a bed at approximately 5 AM whenever she fell and was unable to get up. She had to call her sister to assist her. The sister then heard the patient fall at approximately 730 in the bathroom and stated this was on a concrete floor complaining of hip and elbow pain. Of significance patient underwent cardioversion yesterday due to persistent A-fib that resulted in normal sinus rhythm. She has been on Eliquis uninterrupted. Stroke alert was not called due to patient being on Eliquis and being out of the timeframe for possible tPA and concern for trauma. Currently patient complains of headache, left elbow pain, right hip pain, involuntary movement to left arm, restlessness and rash on her left side under her breast that is very itchy. Sister at bedside denies noting any facial droop, slurred speech, focal weakness or other strokelike symptoms. Patient states only new medication is amiodarone that she started approximately a week and a half ago. She was able to take all of her morning meds this morning. Currently she is complaining of being hungry. She denies any fever, chills, sweats, lightheadedness, dizziness, chest pain, palpitations, shortness of breath, nausea, vomiting, abdominal pain, change in bowel or urinary habits, lower extremity edema, orthopnea. In ED patient underwent head CT as well as head and neck CTAs which was negative for any acute large vessel occlusion, hemorrhage or apparent CVA. She also underwent elbow x-ray, C-spine x-ray and CT abdomen pelvis was negative for any acute abnormality. Chest x-ray did reveal pulmonary edema and right pleural effusion. Allergies Allergy/AdvReac Type Severity Reaction Status Date / Time erythromycin base Allergy Severe Rash Verified 08/15/22 15:20 Sulfa (Sulfonamide Allergy Severe Rash Verified 08/15/22 15:20 Antibiotics) aspirin Allergy Intermediate Rash Verified 08/15/22 15:20 latex Allergy Intermediate RASH Verified 08/15/22 15:20 Home Medications Medication Instructions Recorded Confirmed Type apixaban 5 mg tablet (Eliquis) 5 mg PO BID 01/06/18 08/15/22 History ascorbic acid (vitamin C) 1,000 mg 500 mg PO QAM 01/06/18 08/15/22 History tablet (Vitamin C) atorvastatin 40 mg tablet 40 mg PO HS 01/06/18 08/15/22 History cholecalciferol (vitamin D3) 10 400 unit PO QAM 01/06/18 08/15/22 History mcg (400 unit) tablet (Vitamin D3) multivitamin 1 tab PO QAM 01/06/18 08/15/22 History omega [id number]-[id number]-fish oil 1,000 mg 1 cap PO .Q3DAYS 01/06/18 08/15/22 History (120 mg-180 mg) capsule (Fish Oil) bupropion HCl 300 mg 24 hr tablet, 300 mg PO QAM 07/22/20 08/15/22 History extended release acetaminophen 325 mg tablet 650 mg PO QID PRN Pain 11/29/21 08/15/22 History calcium carbonate 600 mg calcium 600 mg PO QAM 11/29/21 08/15/22 History (1,500 mg) tablet cetirizine 10 mg tablet 10 mg PO HS 11/29/21 08/15/22 History ciclopirox 8 % topical solution 1 applic topical HS 11/29/21 08/15/22 History diclofenac sodium 1 % topical gel 2 g topical QID PRN Pain 11/29/21 08/15/22 History dulaglutide 3 mg/0.5 mL 3 mg subcut WK 11/29/21 08/15/22 History subcutaneous pen injector (Trulicity) epinephrine 0.3 mg/0.3 mL 0.3 mg IM Q4H PRN Allergic Reaction 11/29/21 08/15/22 History injection, auto-injector fluticasone fur. 200 mcg-umeclid 1 inh inhalation QAM 11/29/21 08/15/22 History 62.5 mcg-vilant 25 mcg inhalat.powder (Trelegy Ellipta) losartan 50 mg tablet (Cozaar) 50 mg PO QAM 11/29/21 08/15/22 History mepolizumab 100 mg/mL subcutaneous 100 mg subcut .[id number] 11/29/21 08/15/22 History auto-injector (Nucala) metformin 500 mg tablet 500 mg PO BID 11/29/21 08/15/22 History montelukast 10 mg tablet 10 mg PO HS 11/29/21 08/15/22 History (Singulair) mupirocin 2 % topical ointment 1 applic topical BID PRN nasal 11/29/21 08/15/22 History dryness albuterol sulfate 2.5 mg/3 mL 2.5 mg inhalation DIRECTED PRN 07/24/22 08/15/22 History (0.083 %) solution for nebulization shortness of breath albuterol sulfate 90 mcg/actuation 2 puff inhalation Q4 PRN Shortness 07/24/22 08/15/22 History aerosol inhaler Of Breath Or Wheezing metoprolol succinate 50 mg 100 mg PO BID 07/24/22 08/15/22 History tablet,extended release 24 hr amiodarone 200 mg tablet 200 mg PO BID 08/08/22 08/15/22 History levalbuterol HCl 1.25 mg/3 mL 1.25 mg inhalation DIRECTED PRN 08/15/22 08/15/22 History solution for nebulization Shortness Of Breath Or Wheezing Past Med/Surg History Medical History (Updated 08/15/22 @ 16:28 by Kirstin Stark PA-C) ADD (attention deficit disorder) Asthma inhaler daily/nebulizer prn Atrial fibrillation follows with Dr. Romero--on eliquis/metoprolol/amiodarone Cardiac murmur Cardiomyopathy Tachycardiac vs idopathic CM (EF 48% in 2018- improved to 55% in 11/2021). Negative nuclear stress test 2017 and 01/2022 COPD (chronic obstructive pulmonary disease) Per records Depression H/O migraine Hepatitis C IN REMISSION HLD (hyperlipidemia) HTN (hypertension) Hyperthyroidism RADIOACTIVE IODINE TREATMENT Left ventricular systolic dysfunction (LVSD) History of dynamic ventricular outflow tract obstruction No significant LV outflow tract obstruction noted on resting ECHO 11/2021 per cardio records Mitral regurgitation Morbid obesity with BMI of 40.0-44.9, adult On anticoagulant therapy eliquis daily Prediabetes per pt reason for metformin Sleep apnea CPAP Surgical History History of appendectomy History of cardiac radiofrequency ablation x2--last 06/24/22 @ [facility] History of cardioversion x4--last 07/24/22---follows with Dr. Romero also had 03/06/22, 11/2021 and 01/2018 History of colonoscopy History of esophagogastroduodenoscopy (EGD) with EUS @ [facility] 04/19/22 History of tooth extraction Hx of breast biopsy S/P ovarian cystectomy Family History Grandfather Family hx of colon cancer Family/Other Family history of diabetes mellitus Other No family history of adverse response to anesthesia Social History Smoking Status: Former smoker Tobacco Type: Cigarettes Second Hand Exposure: No; Do You Dip or Chew Tobacco: No; Hx Alcohol Use: Yes Alcohol type: wine Hx Substance Use: No Preferred Language: Mauritian Communication Ability: Effective Java Scala Developer Required: No Beliefs That Will Affect Care: None Current Living Situation: Alone Feels Safe at Home: Yes Assistive Devices: Glasses and Nebulizer Review of Systems Review of Systems: All systems reviewed & are unremarkable except as noted in HPI & below Physical Exam Physical Exam: Constitutional: WD/WN, F, very restless and involuntary movement of left arm, vitals as above, sitting up in bed, pleasant, conversing easily Head: Normocephalic, Atraumatic Eyes: PERRL, conjunctivae normal, anicteric sclerae, L conjunctiva slightly erythematous ENMT: external ear and nose normal, oropharynx normal Neck: trachea midline, no thyromegaly normal visual inspection Respiratory: normal respiratory effort, lungs clear to auscultation, no wheeze, rales, rhonchi. Normal insp/exp effort, no accessory muscle use Cardiovascular: RRR, no murmur, no edema Vessels: no JVD or carotid bruit Chest: normal inspection of chest Abdomen: normal bowel sounds, soft, nontender, no hepatosplenomegaly Musculoskeletal: no cyanosis or clubbing, extremities motor strength 5/5 on R and 4/5, pt with difficulty initiating movement to LUE and LLE, Skin: no rashes, warm and dry normal turgor Neurologic: PERRL, EOMI, accommodation nl, no face palsy, no dysarthria CN's II-XI intact bilaterally and moves all extremities, involuntary movement to LUE, difficult with point to point and fine motor movement compared to the R. Psychiatric: A+Ox3, euthymic affect Lymphatic: no cervical or axillary lymphadenopathy : deferred Results & Data Results & Data Vital Signs (Past 12 Hours) Vital Signs Temp Pulse Pulse Resp BP BP Pulse Ox 08/15/22 14:55 76 26 H 158/87 H 95 08/15/22 12:45 36.8 C 71 20 157/94 H 95 08/15/22 12:50 74 O2 Del Method 08/15/22 14:55 08/15/22 12:45 Room Air 08/15/22 12:50 Diagnostic Findings Cervical Spine CT 08/15/22 13:37 CT cervical spine wo con CLINICAL HISTORY: fall TECHNIQUE: Multidetector row helical CT of the cervical spine was performed without administration of intravenous contrast. Coronal and sagittal reformations were obtained. Automated dose lowering techniques and/or adjustment according to patient size were utilized for this exam. Comparison: Comparison is made to CTA neck 08/15/2022 FINDINGS: No acute fractures or subluxations are identified. The vertebral body heights and disk spaces are well maintained. The alignment is normal. There is a 24 mm right thyroid nodule. IMPRESSION: 1. Degenerative changes without evidence of acute bony injury. 2. Prominent right thyroid nodule. If not previously evaluated a nonemergent thyroid ultrasound can be performed. ACT 112: Negative or not required by law. Electronically signed by: Chong Cook M.D. 08/15/2022 2:26 PM Abdomen/Pelvis CT 08/15/22 13:38 CT OF THE ABDOMEN AND PELVIS WITH CONTRAST CLINICAL HISTORY: Fall. COMPARISON STUDY: None. TECHNIQUE: Following IV administration of 120 mL of Optiray, axial images of the abdomen and pelvis were obtained from the lung bases to the proximal femurs. Images were reviewed in the axial, sagittal, and coronal planes. IV contrast was administered without complication. Automated exposure control was utilized for the study. A dose lowering technique was utilized adhering to the principles of ALARA. FINDINGS: A trace right pleural effusion is present. There is cardiomegaly. No hemoperitoneum or pneumoperitoneum is present. There is no evidence for traumatic injury to the liver, spleen, adrenal glands, kidneys or pancreas. There is no biliary ductal dilatation. Colonic diverticulosis is noted. There is no evidence for acute diverticulitis. There is no free fluid. There is no lymphadenopathy. No acute fractures are identified within the visualized skeletal structures. Possible appendiceal stump is noted. No evidence for appendicitis. IMPRESSION: No acute traumatic findings within the abdomen or pelvis. ACT 112: Negative or not required by law. Electronically signed by: Pelon Osuna M.D. 08/15/2022 2:40 PM Chest X-Ray 08/15/22 13:38 XR chest 1V portable CLINICAL HISTORY: neuro deficit, acute stroke suspected TECHNIQUE: Single frontal radiograph of the chest was obtained. Comparison: Comparison is made to chest radiograph 07/24/2022 FINDINGS: No lines and tubes are seen. Cardiomegaly is noted. The aortic arch is calcified. Prominence and cephalization of the vasculature is seen. Right airspace opacity is seen. No evidence of pleural effusion or pneumothorax. IMPRESSION: Cardiomegaly and mild pulmonary edema. Faint right airspace opacity may reflect atelectasis, pneumonia, and/or aspiration. ACT 112: Negative or not required by law. Electronically signed by: Chong Cook M.D. 08/15/2022 2:45 PM Elbow X-Ray 08/15/22 13:38 XR elbow LT min 3V routine HISTORY: 67 years-old Female fall acute left elbow pain status post fall COMPARISON: None TECHNIQUE: 3 views of the left elbow FINDINGS: IV catheter. Extravasation of contrast in the antecubital fossa. No acute f racture, dislocation or large joint effusion. IMPRESSION: No acute fracture or dislocation. ACT 112: Negative or not required by law. The above report was generated using voice recognition software. It may contain grammatical, syntax or spelling errors. Electronically signed by: Morris Garcia M.D. 08/15/2022 2:[address] 08/15/22 13:38 CT angio head w con, CT angio neck with con, CT head/brain wo con CLINICAL HISTORY: 67 years-old Female with neuro deficit, acute stroke suspected. Acute strokelike symptoms COMPARISON STUDY: CT cervical spine of same day, CT maxillofacial 09/01/2010 TECHNIQUE: Unenhanced axial CT scan of the brain is performed. Subsequently, following the IV administration of 120 cc of Optiray, CT angiogram of the head and neck was performed from the skull base to the aortic arch to the skull apex. Images are reviewed in the axial, sagittal, and coronal planes. 3-D MIPS images are created and assessed. IV contrast was administered without complication. All measurements were obtained according to NASCET criteria. A dose lowering technique was utilized adhering to the principles of ALARA. CT DOSE: 3289.13 mGy.cm FINDINGS: CT BRAIN: There is no acute intracranial hemorrhage, midline shift, hydrocephalus, intracranial mass, territorial ischemia or abnormal extra-axial collections. No abnormal intra-axial or extra-axial enhancement. Involutional changes with chronic microvascular ischemic disease. Study is motion degraded. Mastoid air cells and middle ear cavities are clear. No calvarial fracture. 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 Paranasal sinuses are clear. CT ANGIOGRAM OF THE HEAD AND NECK: Atherosclerosis of the thoracic aortic arch. Patency of the innominate and image subclavian arteries. Common carotid arteries are patent with moderate plaque of the carotid bulbs. Less than 50% stenosis within the proximal cervical segments of the internal carotid arteries. The bilateral anterior and middle cerebral arteries are also patent. The vertebrobasilar system and posterior cerebral arteries are widely patent. Calcified plaque of the V4 segment left vertebral artery results in approximately 50% stenosis. 50% stenosis of the left posterior cerebral artery on image 105 series 7. There is no aneurysm, high-grade stenosis, or proximal branch occlusion identified. Dural sinuses appear patent. Right pleural effusion. Multinodular thyroid goiter. Interlobular septal thickening in the lungs. Unremarkable soft tissues. Degenerative changes of the cervical spine. IMPRESSION: 1. No acute intracranial abnormality. 2. Unremarkable CTA of the head and neck. 3. Suggested pulmonary edema with right pleural effusion. ACT 112: Negative or not required by law. The above report was generated using voice recognition software. It may contain grammatical, syntax or spelling errors. Electronically signed by: Morris Garcia M.D. 08/15/2022 2:53 PM Head CTA 08/15/22 13:38 CT angio head w con, CT angio neck with con, CT head/brain wo con CLINICAL HISTORY: 67 years-old Female with neuro deficit, acute stroke suspected. Acute strokelike symptoms COMPARISON STUDY: CT cervical spine of same day, CT maxillofacial 09/01/2010 TECHNIQUE: Unenhanced axial CT scan of the brain is performed. Subsequently, following the IV administration of 120 cc of Optiray, CT angiogram of the head and neck was performed from the skull base to the aortic arch to the skull apex. Images are reviewed in the axial, sagittal, and coronal planes. 3-D MIPS images are created and assessed. IV contrast was administered without complication. All measurements were obtained according to NASCET criteria. A dose lowering technique was utilized adhering to the principles of ALARA. CT DOSE: 3289.13 mGy.cm FINDINGS: CT BRAIN: There is no acute intracranial hemorrhage, midline shift, hydrocephalus, intracranial mass, territorial ischemia or abnormal extra-axial collections. No abnormal intra-axial or extra-axial enhancement. Involutional changes with chronic microvascular ischemic disease. Study is motion degraded. Mastoid air cells and middle ear cavities are clear. No calvarial fracture. 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 Paranasal sinuses are clear. CT ANGIOGRAM OF THE HEAD AND NECK: Atherosclerosis of the thoracic aortic arch. Patency of the innominate and image subclavian arteries. Common carotid arteries are patent with moderate plaque of the carotid bulbs. Less than 50% stenosis within the proximal cervical segments of the internal carotid arteries. The bilateral anterior and middle cerebral arteries are also patent. The vertebrobasilar system and posterior cerebral arteries are widely patent. Calcified plaque of the V4 segment left vertebral artery results in approximately 50% stenosis. 50% stenosis of the left posterior cerebral artery on image 105 series 7. There is no aneurysm, high-grade stenosis, or proximal branch occlusion identified. Dural sinuses appear patent. Right pleural effusion. Multinodular thyroid goiter. Interlobular septal thickening in the lungs. Unremarkable soft tissues. Degenerative changes of the cervical spine. IMPRESSION: 1. No acute intracranial abnormality. 2. Unremarkable CTA of the head and neck. 3. Suggested pulmonary edema with right pleural effusion. ACT 112: Negative or not required by law. The above report was generated using voice recognition software. It may contain grammatical, syntax or spelling errors. Electronically signed by: Morris Garcia M.D. 08/15/2022 2:53 PM Neck CTA 08/15/22 13:38 CT angio head w con, CT angio neck with con, CT head/brain wo con CLINICAL HISTORY: 67 years-old Female with neuro deficit, acute stroke suspected. Acute strokelike symptoms COMPARISON STUDY: CT cervical spine of same day, CT maxillofacial 09/01/2010 TECHNIQUE: Unenhanced axial CT scan of the brain is performed. Subsequently, following the IV administration of 120 cc of Optiray, CT angiogram of the head and neck was performed from the skull base to the aortic arch to the skull apex. Images are reviewed in the axial, sagittal, and coronal planes. 3-D MIPS images are created and assessed. IV contrast was administered without complication. All measurements were obtained according to NASCET criteria. A dose lowering technique was utilized adhering to the principles of ALARA. CT DOSE: 3289.13 mGy.cm FINDINGS: CT BRAIN: There is no acute intracranial hemorrhage, midline shift, hydrocephalus, int racranial mass, territorial ischemia or abnormal extra-axial collections. No abnormal intra-axial or extra-axial enhancement. Involutional changes with chronic microvascular ischemic disease. Study is motion degraded. Mastoid air cells and middle ear cavities are clear. No calvarial fracture. 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 Paranasal sinuses are clear. CT ANGIOGRAM OF THE HEAD AND NECK: Atherosclerosis of the thoracic aortic arch. Patency of the innominate and image subclavian arteries. Common carotid arteries are patent with moderate plaque of the carotid bulbs. Less than 50% stenosis within the proximal cervical segments of the internal carotid arteries. The bilateral anterior and middle cerebral arteries are also patent. The vertebrobasilar system and posterior cerebral arteries are widely patent. Calcified plaque of the V4 segment left vertebral artery results in approximately 50% stenosis. 50% stenosis of the left posterior cerebral artery on image 105 series 7. There is no aneurysm, high-grade stenosis, or proximal branch occlusion identified. Dural sinuses appear patent. Right pleural effusion. Multinodular thyroid goiter. Interlobular septal thickening in the lungs. Unremarkable soft tissues. Degenerative changes of the cervical spine. IMPRESSION: 1. No acute intracranial abnormality. 2. Unremarkable CTA of the head and neck. 3. Suggested pulmonary edema with right pleural effusion. ACT 112: Negative or not required by law. The above report was generated using voice recognition software. It may contain grammatical, syntax or spelling errors. Electronically signed by: Morris Garcia M.D. 08/15/2022 2:53 PM Pelvis X-Ray 08/15/22 13:38 XR pelvis 1-2V routine CLINICAL HISTORY: fall COMPARISON: CT of the abdomen and pelvis performed earlier today. FINDINGS: Sacroiliac joints and symphysis pubis are intact. No acute fracture within the pelvis or hips is identified. There is mild bilateral hip o steoarthritis. IMPRESSION: No acute fracture within the pelvis or hips. ACT 112: Negative or not required by law. Electronically signed by: Pelon Osuna M.D. 08/15/2022 2:34 PM Medications Administered Current Inpatient Medications Magnesium Sulfate/Dextrose (Magnesium Sulfate / D5w) 1 gm in 100 mls @ 100 mls/hr IV Q1H LYLY Stop: 08/15/22 17:59 Last Admin: 08/15/22 16:01 Dose: 100 mls/hr COVID-19 Results Results COVID-19 Adm Lab Results: RBC 4.05 M/uL (4.20-5.40) L 08/15/22 WBC 10.41 K/ul (4.8-10.8) 08/15/22 Hgb 12.6 g/dl (12.0-16.0) 08/15/22 Hct 39.1 % (37.0-47.0) 08/15/22 Plt Count 249 K/uL (130-400) 08/15/22 Neutrophils (%) (Auto) 82.8 % 08/15/22 Lymphocytes (%) (Auto) 8.8 % 08/15/22 Monocytes # (Auto) 0.81 K/uL (0.11-0.59) H 08/15/22 Eosinophils # (Auto) 0.01 K/uL (0-0.50) 08/15/22 Immature Granulocyte % (Auto) 0.3 % 08/15/22 Neutrophils # (Auto) 8.62 K/uL (1.40-6.50) H 08/15/22 Lymphocytes # (Auto) 0.92 K/uL (1.2-3.4) L 08/15/22 Monocytes # (Auto) 0.81 K/uL (0.11-0.59) H 08/15/22 Eosinophils # (Auto) 0.01 K/uL (0-0.50) 08/15/22 Basophils # (Auto) 0.02 K/uL (0-0.2) 08/15/22 Immature Granulocyte # (Auto) 0.03 K/uL (0.01-0.20) 3 Na 136 mmol/L (136-145) 08/15/22 K 4.2 mmol/L (3.5-5.1) 08/15/22 Cl 103 mmol/L (98-107) 08/15/22 CO2 26 mmol/L (21-32) 08/15/22 Anion Gap 7 (3-11) 08/15/22 BUN 18 mg/dl (6-23) 08/15/22 Creatinine 0.85 mg/dl (0.6-1.2) 08/15/22 BUN/Creatinine Ratio 21.2 (10-20) H 08/15/22 Glucose Level 118 mg/dl (70-99(Fasting)) H 08/15/22 Ca 9.4 mg/dl (8.6-10.3) 08/15/22 Total Bilirubin 0.8 mg/dl (0.2-1.0) 08/15/22 AST/SGOT 18 U/L (13-39) 08/15/22 ALT/SGPT 16 U/L (7-52) 08/15/22 Alkaline Phosphatase 49 U/L (34-104) 08/15/22 Total Protein 6.8 gm/dl (6.0-8.3) 08/15/22 Albumin 4.0 gm/dl (3.4-5.0) 08/15/22 Globulin 2.8 gm/dl (2.5-4.0) 08/15/22 Albumin/Globulin Ratio 1.4 (0.9-2) 08/15/22 Total CK 77 U/L (26-192) 08/15/22 Procalcitonin Pending 08/15/22 PTT 27.6 Seconds (21.0-31.0) 08/15/22 INR 1.1 (0.9-1.1) 08/15/22 SARS-CoV-2, RNA, NAAT NEGATIVE (NEGATIVE) 08/15/22 Chest X-Ray 08/15/22 Code Status & VTE Plan Code Status FULL CODE VTE Prophylaxis Plan VTE Prophylaxis will be ordered: No Reason for no VTE drug order: Treatment not indicated Supervising Physician Co-Signing Physician Notes 67yoF with cardiac ablation performed yesterday for atrial fibrillation, presenting with recurrent falls, very itchy left sided rash and involuntary left sided movements. At the time pt was seen, had received benadryl and Ativan and was still restless complaining of significant itching, very uncomfortable. Notes a Hx of chronic dermatitis, states she usually uses OTC hydrocortisone to help. Could be an allergic reaction to medications received during her procedure yesterday, one time dose of IV Solumedrol ordered. Stroke work up, MRI brain, consult neurology. Consider work up for tick-related pathology with neurological manifestations and rash. They note they do take the dogs out occasionally. Empiric doxycycline started.
[2022-08-15 16:21] LABS: iSTAT Creatinine 0.9 mg/dl (0.6-1.3); iSTAT Hemoglobin 14.3 g/dl (12.0-16.0); iSTAT Ionized Calcium 1.19 mmol/l (1.12-1.32); iSTAT Potassium 4.3 mmol/L (3.3-5.0)
[2022-08-15 17:11] LABS: Base Excess VBG 0.8 mEq/L; HCO3 VBG 27 mmol/L; Oxygen Saturation VBG < 60.0 %; PCO2 VBG 46 mmHg (38-50); PO2 VBG 36 mmHg; pH VBG 7.37 (7.36-7.41)
[2022-08-15] MEDS ORDERED: GLUCAGON FOR INJ 1 MG VIAL SQ PRN (17:17)
[2022-08-15] MEDS ORDERED: DEXTROSE 50% 50 ML SYRINGE IV PRN (17:17)
[2022-08-15] MEDS ORDERED: PHARMACIST DISCHARGE MED REC CONSULT PRN (17:17)
[2022-08-15] MEDS ORDERED: GLUCOSE 10 TAB/TUBE PO PRN (17:17)
[2022-08-15] MEDS ORDERED: CARBOHYDRATES FOR HYPOGLYCEMIA PO PRN (17:17)
[2022-08-15] MEDS ORDERED: ALUMINUM/MAGNESIUM SUSP 30 ML UDC PO PRN (17:17)
[2022-08-15] MEDS ORDERED: GLUCOSE 40% GEL 15 GM TUBE PO PRN (17:17)
[2022-08-15] MEDS ORDERED: ONDANSETRON INJ 2 MG/ML 2 ML VIAL IV PRN (17:17)
[2022-08-15] MEDS ORDERED: POLYETHYLENE (MIRALAX) 17 GM PACK PO PRN (17:17)
[2022-08-15] MEDS ORDERED: LORazepam 2 MG/1 ML VIAL IV ONE (17:30)
[2022-08-15 18:04] LABS: Lyme Ab IgG w/WB Rflx Negative (Negative); Lyme Ab IgM w/WB Rflx Negative (Negative)
[2022-08-15] MEDS ORDERED: methylPREDNISolone 125 MG in SYRINGE 0 ML IV ONE (18:06)
--- NOTE | 2022-08-15 18:35 | Magnetic Resonance Report ---
MR brain wo con HISTORY: 67 years-old Female stroke work up acute stroke like symptoms COMPARISON: Head CT of same day TECHNIQUE: Multiplanar multisequence MRI the brain was obtained without the use of IV contrast. FINDINGS: Motion degraded exam. There is an acute right MCA distribution infarct predominantly involving the ri ght temporal and parietal lobes measuring up to 4.3 x 5.4 cm in transverse and AP dimensions. Additio nal smaller adjacent areas of acute infarcts noted within the frontoparietal distribution and periven tricular right frontal lobe. Correspondingly decreased signal on the ADC map. No acute intracranial h emorrhage, midline shift, hydrocephalus or intracranial mass. Involutional changes with moderate supervisor commissary production angela microvascular ischemic disease. Cerebral venous sinuses and major arterial flow voids appear edwards nt. Skull, orbits and soft tissues are unremarkable. IMPRESSION: 1. Moderate sized acute right MCA infarct. 2. No acute intracranial hemorrhage, midline shift or hydrocephalus. ACT 112: Negative or not required by law. The above report was generated using voice recognition software. It may contain grammatical, syntax o r spelling errors. Electronically signed by: Morris Garcia M.D. 08/15/2022 6:32 PM
[2022-08-15] MEDS ORDERED: AMPICILLIN/SULBACTAM SOD 3,000 MG in 0.9 % SODIUM CHLORIDE 100 ML IV SCH (19:00)
[2022-08-15] MEDS ORDERED: methylPREDNISolone 125 MG in SYRINGE 0 ML IV STA (19:15)
--- NOTE | 2022-08-15 19:51 | Electrocardiogram Report ---
Test Reason : Blood Pressure : / mmHG Vent. Rate : 074 BPM Atrial Rate : 074 BPM P-R Int : 186 ms QRS Dur : 094 ms QT Int : 448 ms P-R-T Axes : 084 111 098 degrees QTc Int : 497 ms Normal sinus rhythm Right axis deviation Abnormal ECG When compared with ECG of 14-AUG-2022 07:54, Nonspecific T wave abnormality now evident in Lateral leads Confirmed by Alberto Stearns ([id number]) on 08/15/2022 7:50:58 PM Referred By: REFERRED SELF Confirmed By:Adi Stearns
[2022-08-15 19:53] LABS: Appearance Urine Clear (Clear); Bilirubin Urine Negative (Negative); Blood Urine Negative (Negative); Color Urine Yellow; Glucose Urine UA Negative (Negative); Ketones Urine Negative (Negative); Leukocyte Esterase Urine Negative (Negative); Nitrite Urine Negative (Negative); Protein Urine Negative (Negative); Urobilinogen Urine Negative (Negative); pH Urine 5.5 (4.5-7.5)
[2022-08-15] MEDS: INSULIN ASPART PER UNIT CHARGE SC SCH (20:40)
[2022-08-15] MEDS: DOXYCYCLINE HYCLATE 100 MG CAP PO SCH (20:56)
[2022-08-15] MEDS: ACETAMINOPHEN 325 MG TAB PO PRN (20:57)
[2022-08-15] MEDS ORDERED: HYDROCORTISONE 1% CRM 30 GM TUBE EXT SCH (21:00)
[2022-08-15] MEDS: TRIAMCINOLONE ACET 0.1% CR 80 GM TUBE EXT PRN (21:24)
[2022-08-16 05:58] LABS: Hematocrit (blood only) 38.8 % (37.0-47.0); Hemoglobin 12.8 g/dl (12.0-16.0); Mean Corpuscular Hemoglobin 31.1 pg (25.0-34.0); Mean Corpuscular Volume 94.4 fL (80.0-100.0); Mean Platelet Volume 9.7 fL (9.4-12.4); Platelet Count 236 K/uL (130-400); RDW Coefficient of Variation 13.4 % (11.5-14.5); RDW Standard Deviation 46.1 fL (36.4-46.3); Red Blood Count 4.11 M/uL (4.20-5.40); White Blood Count 7.63 K/ul (4.8-10.8)
[2022-08-16 06:13] LABS: BUN Creatinine Ratio 19.5 (10-20); Calcium 9.1 mg/dl (8.6-10.3); Chol HDL Ratio 2.4 (0-5); Creatinine Clr Calc Pharmacy 77.5 ml/min; Est GFR (African American) 79.3 ml/min; Est GFR (Non-African American) 68.5 ml/min; Magnesium 1.9 mg/dl (1.7-2.4); Potassium 4.4 mmol/L (3.5-5.1)
[2022-08-16 06:19] LABS: Basophils # (auto) 0.01 K/uL (0-0.2); Basophils % (auto) 0.1 %; Immature Granulocytes # (auto) 0.04 K/uL (0.01-0.20); Immature Granulocytes % (auto) 0.5 %; Lymphocytes # (auto) 0.52 K/uL (1.2-3.4); Lymphocytes % (auto) 6.8 %; Monocytes # (auto) 0.07 K/uL (0.11-0.59); Monocytes % (auto) 0.9 %; Neutrophils # (auto) 6.99 K/uL (1.40-6.50); Neutrophils % (auto) 91.7 %
[2022-08-16] MEDS: ACETAMINOPHEN 325 MG TAB PO PRN ×2 (06:31→13:10)
[2022-08-16 06:58] LABS: Estimated Average Glucose 148 mg/dl; Hemoglobin A1C 6.8 % (4.5-5.6)
[2022-08-16] MEDS: INSULIN ASPART PER UNIT CHARGE SC SCH ×4 (08:18→21:34)
[2022-08-16] MEDS: DOXYCYCLINE HYCLATE 100 MG CAP PO SCH (08:19)
[2022-08-16] MEDS: TRIAMCINOLONE ACET 0.1% CR 80 GM TUBE EXT PRN (08:25)
[2022-08-16] MEDS ORDERED: LEVALBUTEROL 1.25 MG/3 ML NEB INH PRN (08:58)
[2022-08-16] MEDS ORDERED: NON-FORMULARY MEDICATION (Fluticasone-Umeclidin-Vilanter [Trelegy Ellipta] 200-62.5-25 mcg INH SCH (09:00)
--- NOTE | 2022-08-16 09:00 | Neurology Consultation ---
Date of Consultation August 16, 2022 Assessment & Plan (1) Acute right MCA stroke: Patient presents with alien limb secondary to R MCA stroke in the setting of afib and cardioversion on eliquis. She is doing very well with early recognition of her deficits which is encouraging for long-term prognosis. For secondary stroke prevention she needs to resume her eliquis today. The size of the stroke, lack of hemorrhage, her low NIHSS and timing since onset all favor resuming anticoagulation now which has been shown to reduce secondary ischemic events. This is safe and guideline based care. https://www.ahajournals.org/doi/10.1161/STROKEAHA.[email or web address] -- Resume Eliquis 5mg BID -- Therapy evals -- Target BP normotension, can resume home BP meds -- Goal HbA1c <7 -- Echo will not telephone exchange operator -- Discharge pending therapy recommendations -- Please contact us with any further questions Telehealth Consultation Telehealth Information Telehealth Information: I performed this visit using a real-time telehealth connection between my location and the patients location ([facility]). After connecting through interactive tele-video, patient was identified by name and date of and/or wristband check.Patient (or authorized healthcare surgical device sales representative) was informed that this was a telemedicine visit and it was being conducted confidentially over secure lines. My office door was closed and no one else was present in the room with me.Patient (or authorized healthcare surgical device sales representative) provided consent to proceed with the visit, expressed an understanding of privacy and security of the telemedicine visit, and gave permission to have a hospital surgical device sales representative in the room in order to assist with the visit and to conduct portions of the visit, as needed. I informed the patient (or authorized healthcare surgical device sales representative) that I reviewed their record and presented the opportunity for them to ask any questions regarding the visit today. The patient agreed to participate. History of Present Illness Reason for Consultation: Left arm abnormal movements and headache Requesting Physician: Dr. Quinonez Attending Physician: Lizeth Quinonez MD History of Present Illness Kimberly Hernandez is a 67 yo F presenting with left arm uncontrollable movements in the setting of recent cardioversion x2 for afib. The patient reports that she had been taking her eliquis pre and post-procedure and did not miss any doses. Currently she complains of a R sided headache she has had since the procedure. She reports that yesterday she felt that her left arm was not her own and fell when trying to get out of bed. When she touched her face she thought it was a stranger. Since then she reports improvement, in that her left arm she now knows is her own. She continues to have involuntary movements of the left arm and has difficulty holding it still without concentrating. She has otherwise never had a stroke in the past. Allergies Allergy/AdvReac Type Severity Reaction Status Date / Time erythromycin base Allergy Severe Rash Verified 08/15/22 15:20 Sulfa (Sulfonamide Allergy Severe Rash Verified 08/15/22 15:20 Antibiotics) aspirin Allergy Intermediate Rash Verified 08/15/22 15:20 latex Allergy Intermediate RASH Verified 08/15/22 15:20 Home Medications Medication Instructions Recorded Confirmed Type apixaban 5 mg tablet (Eliquis) 5 mg PO BID 01/06/18 08/15/22 History ascorbic acid (vitamin C) 1,000 mg 500 mg PO QAM 01/06/18 08/15/22 History tablet (Vitamin C) atorvastatin 40 mg tablet 40 mg PO HS 01/06/18 08/15/22 History cholecalciferol (vitamin D3) 10 400 unit PO QAM 01/06/18 08/15/22 History mcg (400 unit) tablet (Vitamin D3) multivitamin 1 tab PO QAM 01/06/18 08/15/22 History omega 5-evu-cwz-fish oil 1,000 mg 1 cap PO .Q3DAYS 01/06/18 08/15/22 History (120 mg-180 mg) capsule (Fish Oil) bupropion HCl 300 mg 24 hr tablet, 300 mg PO QAM 07/22/20 08/15/22 History extended release acetaminophen 325 mg tablet 650 mg PO QID PRN Pain 11/29/21 08/15/22 History calcium carbonate 600 mg calcium 600 mg PO QAM 11/29/21 08/15/22 History (1,500 mg) tablet cetirizine 10 mg tablet 10 mg PO HS 11/29/21 08/15/22 History ciclopirox 8 % topical solution 1 applic topical HS 11/29/21 08/15/22 History diclofenac sodium 1 % topical gel 2 g topical QID PRN Pain 11/29/21 08/15/22 History dulaglutide 3 mg/0.5 mL 3 mg subcut WK 11/29/21 08/15/22 History subcutaneous pen injector (Trulicity) epinephrine 0.3 mg/0.3 mL 0.3 mg IM Q4H PRN Allergic Reaction 11/29/21 08/15/22 History injection, auto-injector fluticasone fur. 200 mcg-umeclid 1 inh inhalation QAM 11/29/21 08/15/22 History 62.5 mcg-vilant 25 mcg inhalat.powder (Trelegy Ellipta) losartan 50 mg tablet (Cozaar) 50 mg PO QAM 11/29/21 08/15/22 History mepolizumab 100 mg/mL subcutaneous 100 mg subcut .[id number] 11/29/21 08/15/22 History auto-injector (Nucala) metformin 500 mg tablet 500 mg PO BID 11/29/21 08/15/22 History montelukast 10 mg tablet 10 mg PO HS 11/29/21 08/15/22 History (Singulair) mupirocin 2 % topical ointment 1 applic topical BID PRN nasal 11/29/21 08/15/22 History dryness albuterol sulfate 2.5 mg/3 mL 2.5 mg inhalation DIRECTED PRN 07/24/22 08/15/22 History (0.083 %) solution for nebulization shortness of breath albuterol sulfate 90 mcg/actuation 2 puff inhalation Q4 PRN Shortness 07/24/22 08/15/22 History aerosol inhaler Of Breath Or Wheezing metoprolol succinate 50 mg 100 mg PO BID 07/24/22 08/15/22 History tablet,extended release 24 hr amiodarone 200 mg tablet 200 mg PO BID 08/08/22 08/15/22 History levalbuterol HCl 1.25 mg/3 mL 1.25 mg inhalation DIRECTED PRN 08/15/22 08/15/22 History solution for nebulization Shortness Of Breath Or Wheezing Patient History Medical History (Updated 08/16/22 @ 09:05 by Garret Gomez MD) ADD (attention deficit disorder) Asthma inhaler daily/nebulizer prn Atrial fibrillation follows with Dr. Romero--on eliquis/metoprolol/amiodarone Cardiac murmur Cardiomyopathy Tachycardiac vs idopathic CM (EF 48% in 2018- improved to 55% in 11/2021). Negative nuclear stress test 2017 and 01/2022 COPD (chronic obstructive pulmonary disease) Per records Depression H/O migraine Hepatitis C IN REMISSION HLD (hyperlipidemia) HTN (hypertension) Hyperthyroidism RADIOACTIVE IODINE TREATMENT Left ventricular systolic dysfunction (LVSD) History of dynamic ventricular outflow tract obstruction No significant LV outflow tract obstruction noted on resting ECHO 11/2021 per cardio records Mitral regurgitation Morbid obesity with BMI of 40.0-44.9, adult On anticoagulant therapy eliquis daily Prediabetes per pt reason for metformin Sleep apnea CPAP Surgical History History of appendectomy History of cardiac radiofrequency ablation x2--last 06/24/22 [place] [facility] [place] of cardioversion x4--last 07/24/22---follows with Dr. Romero also had 03/06/22, 11/2021 and 01/2018 History of colonoscopy History of esophagogastroduodenoscopy (EGD) with EUS @ [facility] 04/19/22 History of tooth extraction Hx of breast biopsy S/P ovarian cystectomy Family History Grandfather Family hx of colon cancer Family/Other Family history of diabetes mellitus Other No family history of adverse response to anesthesia Social History Smoking Status: Former smoker Tobacco Type: Cigarettes Second Hand Exposure: No; Do You Dip or Chew Tobacco: No; Tobacco Cessation Education Requested by Patient: No Hx Alcohol Use: Yes Alcohol type: wine Hx Substance Use: No Preferred Language: Divehi Communication Ability: Effective Curtain Roller Assembler Required: No Beliefs That Will Affect Care: None Current Living Situation: Alone Other Information That Helps Us Care for You: No Feels Safe at Home: Yes Safety Concerns: Feels Safe At This Time Assistive Devices: Glasses and Nebulizer Review of Systems +Headache, left arm clumsiness Physical Exam Neurological Examination: Mental Status: Awake and alert. Oriented to person, place, and time. Fluent. Comprehension intact. Affect appropriate. Cranial Nerves: II: Reads NIHSS cards, pupils 3/3 to 2/2, Left superioir quadrantanopsia vs visual neglect noted. III/IV/: Versions intact without nystagmus, Subtle R gaze preference, easily overcome. V: Facial sensation symmetric to light touch VII: Facial expression symmetric VIII: Hearing intact to voice IX/X: Palate elevates symmetrically XI: Shoulder shrug symmetric XII: Tongue midline Motor: Strength was symmetric and antigravity throughout. Alien limb phenomenon of the L arm with dyskinesias at rest and distraction. Coordination: Dysmetria with L UE on FNF Results & Data Vital Signs (Past 12 Hours) Vital Signs Temp Pulse Pulse Resp BP Pulse Ox O2 Del Method 08/16/22 07:19 36.8 C 85 18 158/88 H 96 Room Air 08/16/22 04:20 71 21 94 08/16/22 03:32 36.6 C 83 20 148/82 H 92 CPAP 08/15/22 21:56 72 08/15/22 23:35 36.7 C 75 22 165/92 H 92 CPAP 08/15/22 23:01 74 20 94 O2 Flow Rate 08/16/22 07:19 08/16/22 04:20 08/16/22 03:32 5 08/15/22 21:56 08/15/22 23:35 5 08/15/22 23:01 Laboratory Results Abnormal lab results 08/15/22 08/15/22 08/15/22 Range/Units 13:03 13:03 13:51 RBC 4.05 L (4.20-5.40) M/uL RDW Std Deviation 48.1 H (36.4-46.3) fL Neut # (Auto) 8.62 H (1.40-6.50) K/uL Lymph # (Auto) 0.92 L (1.2-3.4) K/uL [place] # (Auto) 0.81 H (0.11-0.59) K/uL POC Total CO2 22 L (24-31) mmol/L POC BUN 20 H (7-18) mg/dl BUN/Creatinine Ratio 21.2 H (10-20) Glucose 118 H (70-99(Fasting)) mg/dl POC Glucose (70-99) mg/dl POC Glucose (other) 110 H (70-99) mg/dl Hemoglobin A1c (4.5-5.6) % Magnesium 1.6 L (1.7-2.4) mg/dl Troponin I High Sens 31.1 H (0-14) pg/ml Ur Specific [place] (1.000-1.030) 08/15/22 08/15/22 08/15/22 Range/Units 16:55 20:05 22:37 RBC (4.20-5.40) M/uL RDW Std Deviation (36.4-46.3) fL Neut # (Auto) (1.40-6.50) K/uL Lymph # (Auto) (1.2-3.4) K/uL [place] # (Auto) (0.11-0.59) K/uL POC Total CO2 (24-31) mmol/L POC BUN (7-18) mg/dl BUN/Creatinine Ratio (10-20) Glucose (70-99(Fasting)) mg/dl POC Glucose 106 H (70-99) mg/dl POC Glucose (other) (70-99) mg/dl Hemoglobin A1c (4.5-5.6) % Magnesium (1.7-2.4) mg/dl Troponin I High Sens 32.0 H 25.4 H (0-14) pg/ml Ur Specific [place] (1.000-1.030) 08/15/22 08/16/22 08/16/22 Range/Units Unknown 05:35 05:35 RBC 4.11 L (4.20-5.40) M/uL RDW Std Deviation (36.4-46.3) fL Neut # (Auto) 6.99 H (1.40-6.50) K/uL Lymph # (Auto) 0.52 L (1.2-3.4) K/uL [place] # (Auto) 0.07 L (0.11-0.59) K/uL POC Total CO2 (24-31) mmol/L POC BUN (7-18) mg/dl BUN/Creatinine Ratio (10-20) Glucose 194 H (70-99(Fasting)) mg/dl POC Glucose (70-99) mg/dl POC Glucose (other) (70-99) mg/dl Hemoglobin A1c (4.5-5.6) % Magnesium (1.7-2.4) mg/dl Troponin I High Sens (0-14) pg/ml Ur Specific [place] 1.040 H (1.000-1.030) 08/16/22 08/16/22 08/16/22 Range/Units 05:35 05:35 07:20 RBC (4.20-5.40) M/uL RDW Std Deviation (36.4-46.3) fL Neut # (Auto) (1.40-6.50) K/uL Lymph # (Auto) (1.2-3.4) K/uL [place] # (Auto) (0.11-0.59) K/uL POC Total CO2 (24-31) mmol/L POC BUN (7-18) mg/dl BUN/Creatinine Ratio (10-20) Glucose (70-99(Fasting)) mg/dl POC Glucose 186 H (70-99) mg/dl POC Glucose (other) (70-99) mg/dl Hemoglobin A1c 6.8 H (4.5-5.6) % Magnesium (1.7-2.4) mg/dl Troponin I High Sens 15.3 H D (0-14) pg/ml Ur Specific [place] (1.000-1.030) Diagnostic Findings CT 08/15 - Subacute R MCA stroke CTA 08/15 - Distal L M2 occlusion corresponding to area of stroke MRI brain - Moderate size R MCA stroke, no evidence of hemorrhagic transformation
--- NOTE | 2022-08-16 09:56 | Cardiology Consultation ---
Date of Consultation August 16, 2022 Assessment & Plan (1) Acute right MCA stroke: * Presumed cardioembolic stroke in the setting of recent direct-current cardioversion. Patient describes adherence with recent Eliquis use * Neurology input noted and appreciated. Eliquis resumed (2) Atrial fibrillation with RVR: Remains in sinus rhythm. Continue prior to hospital treatment metoprolol succinate 100 mg twice daily, amiodarone 200 mg twice daily Eliquis reinitiated as noted above (3) HTN (hypertension): Continue metoprolol, losartan. (4) Dyslipidemia: Continue atorvastatin 40 mg daily. Most recent outpatient LDL cholesterol was in December, and was 61 mg/dL, 63 mg/dl this am. Case discussed with Dr Quinonez for the purpose of coordinating care. I called the patient's daughter, Enid Patel who works locally with [facility] and is on staff at the hospital. She is currently in [place]. I was able to reach her on her mobile phone , and provided updates. History of Present Illness Attending Physician: Lizeth Quinonez MD History of Present Illness Kimberly Hernandez is a 67 year old female seen in cardiology consultation per the request of Dr Quinonez for the evaluation of acute right middle cerebral artery territory stroke in setting of recent direct-current cardioversion. The patient is well known to the undersigned as I have followed her for symptomatic paroxysmal and persistent atrial fibrillation initially diagnosed at the time of hospitalization in Jul, 2017. Her typical symptoms of atrial fibrillation are generalized fatigue and shortness of breath with exertion. She has undergone multiple cardioversion procedures in the past and undergone previous pulmonary vein isolation ablation at [facility] in March 2018, with repeat pulmonary vein isolation ablation performed on 06/24/2022. She is chronically anticoagulated with Eliquis. She been seen by the undersigned in emergency department consultation on 07/24/2022 having reverted back to atrial fibrillation. She underwent direct-current cardioversion to sinus rhythm at that time. At time of outpatient follow-up however on 08/01/2022 she had reverted back to atrial fibrillation with mildly elevated ventricular rate of 110 bpm on outpatient EKG at that time prompting the addition of amiodarone. She presented for repeat direct-current cardioversion on amiodarone 2 days ago on 08/14/2022. At that time she had stated that she had been adherent to Eliquis with no recent missed doses and had taken her dose of Eliquis that morning prior to leaving for the hospital. She underwent direct-current cardioversion with successful conversion to sinus rhythm with EKG performed 08/14/2022 revealing sinus rhythm at 60 bpm with first-degree AV block, NM interval 214 ms. She tells me that the day of cardioversion she went home and took a long nap and felt very tired. Yesterday, she had 2 falls and she felt a lack of coordination in her arms and legs. Specifically she felt that her left arm was spontaneously moving on its own. She describes having had a dream where she thought her aunt was holding her face and when she woke up she realized it was her own hand on her face. Stat CT of the brain revealed no evidence of stroke. A CT angiogram of the head and neck vessels revealed atherosclerotic plaque in the carotids and vertebral arteries, with less than 50% stenosis. The visualized portion of the lung hankins suggested pulmonary edema and possible right pleural effusion. Pleural effusion not appreciated on chest x-ray however pulm a pulmonary edema appreciated. Due to her ongoing left upper extremity symptoms she underwent an MRI of the brain performed last evening that revealed a moderate-sized acute right middle cerebral artery territory infarct of 4.3 x 5.4 cm in dimension. There were additional smaller adjacent areas of acute infarcts noted within the frontoparietal distribution in the periventricular right frontal lobe. No acute intracranial hemorrhage identified. At the time my assessment the patient was feeling well. Cognition was normal. Ongoing left upper extremity symptoms but otherwise well. Telemetry and EKG confirmed the presence of sinus rhythm in the 70s to 80s. PastMedicalHistory: 1. Hypertension 2. Type 2 diabetes mellitus 3. Persistent asthma/COPD 4. Obstructive sleep apnea 5. Dyslipidemia 6. Symptomatic paroxysmal and persistent atrial fibrillation -Patient has undergone pulmonary vein isolation on 2 occasions March, and 06/24/2022 -Multiple direct-current cardioversion procedures, 01/2018, November/2021, March/2022, 07/24/2022, 08/14/2022 7. Negative nuclear stress tests August,, January, 8. Past suggestion of tachycardia related cardiomyopathy, LVEF 45% 2017, LVEF > 70% by the gated SPECT technique at time nuclear stress test January, Allergies Allergy/AdvReac Type Severity Reaction Status Date / Time erythromycin base Allergy Severe Rash Verified 08/15/22 15:20 Sulfa (Sulfonamide Allergy Severe Rash Verified 08/15/22 15:20 Antibiotics) aspirin Allergy Intermediate Rash Verified 08/15/22 15:20 latex Allergy Intermediate RASH Verified 08/15/22 15:20 Home Medications Medication Instructions Recorded Confirmed Type apixaban 5 mg tablet (Eliquis) 5 mg PO BID 01/06/18 08/15/22 History ascorbic acid (vitamin C) 1,000 mg 500 mg PO QAM 01/06/18 08/15/22 History tablet (Vitamin C) atorvastatin 40 mg tablet 40 mg PO HS 01/06/18 08/15/22 History cholecalciferol (vitamin D3) 10 400 unit PO QAM 01/06/18 08/15/22 History mcg (400 unit) tablet (Vitamin D3) multivitamin 1 tab PO QAM 01/06/18 08/15/22 History omega 6-khv-ajm-fish oil 1,000 mg 1 cap PO .Q3DAYS 01/06/18 08/15/22 History (120 mg-180 mg) capsule (Fish Oil) bupropion HCl 300 mg 24 hr tablet, 300 mg PO QAM 07/22/20 08/15/22 History extended release acetaminophen 325 mg tablet 650 mg PO QID PRN Pain 11/29/21 08/15/22 History calcium carbonate 600 mg calcium 600 mg PO QAM 11/29/21 08/15/22 History (1,500 mg) tablet cetirizine 10 mg tablet 10 mg PO HS 11/29/21 08/15/22 History ciclopirox 8 % topical solution 1 applic topical HS 11/29/21 08/15/22 History diclofenac sodium 1 % topical gel 2 g topical QID PRN Pain 11/29/21 08/15/22 History dulaglutide 3 mg/0.5 mL 3 mg subcut WK 11/29/21 08/15/22 History subcutaneous pen injector (Trulicity) epinephrine 0.3 mg/0.3 mL 0.3 mg IM Q4H PRN Allergic Reaction 11/29/21 08/15/22 History injection, auto-injector fluticasone fur. 200 mcg-umeclid 1 inh inhalation QAM 11/29/21 08/15/22 History 62.5 mcg-vilant 25 mcg inhalat.powder (Trelegy Ellipta) losartan 50 mg tablet (Cozaar) 50 mg PO QAM 11/29/21 08/15/22 History mepolizumab 100 mg/mL subcutaneous 100 mg subcut .[id number] 11/29/21 08/15/22 History auto-injector (Nucala) metformin 500 mg tablet 500 mg PO BID 11/29/21 08/15/22 History montelukast 10 mg tablet 10 mg PO HS 11/29/21 08/15/22 History (Singulair) mupirocin 2 % topical ointment 1 applic topical BID PRN nasal 11/29/21 08/15/22 History dryness albuterol sulfate 2.5 mg/3 mL 2.5 mg inhalation DIRECTED PRN 07/24/22 08/15/22 History (0.083 %) solution for nebulization shortness of breath albuterol sulfate 90 mcg/actuation 2 puff inhalation Q4 PRN Shortness 07/24/22 08/15/22 History aerosol inhaler Of Breath Or Wheezing metoprolol succinate 50 mg 100 mg PO BID 07/24/22 08/15/22 History tablet,extended release 24 hr amiodarone 200 mg tablet 200 mg PO BID 08/08/22 08/15/22 History levalbuterol HCl 1.25 mg/3 mL 1.25 mg inhalation DIRECTED PRN 08/15/22 08/15/22 History solution for nebulization Shortness Of Breath Or Wheezing Patient History Medical History ADD (attention deficit disorder) Asthma inhaler daily/nebulizer prn Atrial fibrillation follows with Dr. 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 Negative nuclear stress test 2017 and 01/2022 COPD (chronic obstructive pulmonary disease) Per records Depression H/O migraine Hepatitis C IN REMISSION HLD (hyperlipidemia) HTN (hypertension) Hyperthyroidism RADIOACTIVE IODINE TREATMENT Left ventricular systolic dysfunction (LVSD) History of dynamic ventricular outflow tract obstruction No significant LV outflow tract obstruction noted on resting ECHO 11/2021 per cardio records Mitral regurgitation Morbid obesity with BMI of 40.0-44.9, adult On anticoagulant therapy eliquis daily Prediabetes per pt reason for metformin Sleep apnea CPAP Surgical History History of appendectomy History of cardiac radiofrequency ablation x2--last 06/24/22 @ [facility] History of cardioversion x4--last 07/24/22---follows with Dr. Romero also had 03/06/22, 11/2021 and 01/2018 History of colonoscopy History of esophagogastroduodenoscopy (EGD) with EUS @ [facility] 04/19/22 History of tooth extraction Hx of breast biopsy S/P ovarian cystectomy Family History Grandfather Family hx of colon cancer Family/Other Family history of diabetes mellitus Other No family history of adverse response to anesthesia Social History Smoking Status: Former smoker Tobacco Type: Cigarettes Second Hand Exposure: No; Do You Dip or Chew Tobacco: No; Tobacco Cessation Education Requested by Patient: No Hx Alcohol Use: Yes Alcohol type: wine Hx Substance Use: No Preferred Language: Sri Lankan Communication Ability: Effective Studio Control 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: No Beliefs That Will Affect Care: None Current Living Situation: Alone Other Information That Helps Us Care for You: No Feels Safe at Home: Yes Safety Concerns: Feels Safe At This Time Assistive Devices: Glasses and Nebulizer Review of Systems Review of Systems: All systems reviewed & are unremarkable except as noted in HPI & below Physical Exam Constitutional: WD/WN, vitals as above Respiratory: normal respiratory effort, lungs clear to auscultation Cardiovascular: RRR, no murmur, no edema Gastrointestinal (Abdomen): normal bowel sounds, soft, nontender, no hepatosplenomegaly Neurologic: awake; not confused Right upper and right lower extremity sensation and motor movement within normal limits. Left lower extremity strength and movement grossly normal. Patient with slight weakness, decrease sensation, and spontaneous movement of the left arm Psychiatric: A+Ox3, euthymic affect Results & Data Vital Signs (Past 12 Hours) Vital Signs Temp Pulse Pulse Resp BP Pulse Ox O2 Del Method 08/16/22 07:19 36.8 C 85 18 158/88 H 96 Room Air 08/16/22 04:20 71 21 94 08/16/22 03:32 36.6 C 83 20 148/82 H 92 CPAP 08/15/22 21:56 72 08/15/22 23:35 36.7 C 75 22 165/92 H 92 CPAP 08/15/22 23:01 74 20 94 O2 Flow Rate 08/16/22 07:19 08/16/22 04:20 08/16/22 03:32 5 08/15/22 21:56 08/15/22 23:35 5 08/15/22 23:01
[2022-08-16] MEDS: LOSARTAN POTASSIUM 50 MG TAB PO SCH (10:02)
[2022-08-16] MEDS: METOPROLOL SUCC 50MG EXT REL TAB PO SCH ×2 (10:02→20:18)
[2022-08-16] MEDS: AMIODARONE 200 MG TAB PO SCH ×2 (10:02→20:18)
[2022-08-16] MEDS: APIXABAN 5 MG TABLET PO SCH ×2 (10:02→20:19)
[2022-08-16] MEDS: buPROPion XL 300 MG TABCR PO SCH (10:02)
[2022-08-16] MEDS: UMECLIDINIUM/VILANTEROL 62.5/25MCG 7 PUFFS/INHALER INH SCH (10:03)
[2022-08-16] MEDS: FLUTICASONE FUROATE 200MCG 14 PUFFS/INHALER INH SCH (10:03)
--- NOTE | 2022-08-16 11:36 | Electrocardiogram Report ---
Test Reason : Blood Pressure : / mmHG Vent. Rate : 078 BPM Atrial Rate : 078 BPM P-R Int : 224 ms QRS Dur : 110 ms QT Int : 454 ms P-R-T Axes : 074 095 085 degrees QTc Int : 517 ms Sinus rhythm with 1st degree A-V block Rightward axis Nonspecific T wave abnormality Prolonged QT Abnormal ECG When compared with ECG of 15-AUG-2022 12:35, NM interval has increased Inverted T waves have replaced nonspecific T wave abnormality in Anterior leads Confirmed by Alberto Stearns ([id number]) on 08/16/2022 11:36:35 AM Referred By: REFERRED SELF Confirmed By:Adi Stearns
--- NOTE | 2022-08-16 12:25 | Hospitalist Progress Note ---
Date of Service August 16, 2022 Assessment & Plan (1) Stroke-like symptoms: (2) Involuntary movements: (3) Atrial fibrillation: (4) HTN (hypertension): (5) HLD (hyperlipidemia): (6) T2DM (type 2 diabetes mellitus): (7) Sleep apnea: (8) Hypomagnesemia: Plan 67-year-old female who has a significant past medical history of T2DM, HTN, HLD, COPD, LILI on CPAP, persistent atrial fibrillation status post DCCV on 08/14 anticoagulated on Eliquis, HTN, history of migraine, former tobacco use and depression with anxiety who presented to ED 08/15 after sustaining fall x2 prior to arrival. Of significance patient with persistent atrial fibrillation. Underwent DCCV yesterday, 08/14/2022, with successful conversion to normal sinus rhythm. Per pt, she has remained on Eliquis uninterrupted with her last dose being the morning prior to arrival. She is being managed for the following: Acute right MCA stroke: Per admitting MRI. Admitting CT head, CTA head and neck, and MRI brain reviewed. Involuntary movements of left upper extremity Likely cardioembolic given recent cardioversion [see above]. Patient states compliance with Eliquis. LDL 63 and A1c 6.8 this admission. Lyme screen negative. Discussed with cardiology and neurology in the morning, plan to resume her home dose of Eliquis. Patient reports improvement in her LUE involuntary movements, denies any new neurological signs or symptoms. We will continue to monitor headache, if with worsening headache repeat CAT scan. Fall precaution, PT/OT. Speech evaluated, appreciate recs. Hypomagnesemia: Monitor and replete. Pulmonary Edema At admission: VBG normal, procalcitonin negative. Possible component of heart failure in setting of DCCV, monitor for symptoms. Passed dysphagia screen per speech, will discontinue antibiotic. ECHO reviewed. Atrial fibrillation, persistent Status post DCCV, now in sinus rhythm Continue amiodarone, metoprolol and Eliquis. Rash to L side of thorax: Bruise from fall. Continue with as needed anti-itch cream and Benadryl. Other chronic medical conditions: T2DM: Last A1c in 2021 was 6.6, SSI LILI: CPAP at bedtime COPD: No acute exacerbation. Continue home inhalers DVT prophylaxis: Eliquis for A-fib Full code PCP: DONNA Winchester Dispo: pt/ot, cm to assist with dc plan. Admission and Anticipated Discharge Date Admission Date: August 16, 2022 Subjective Patient seen and examined at bedside as a follow-up of acute right MCA stroke likely cardioembolic, involuntary movements of LUE. Patient was lying in bed, on room air, NAD, reports some headache which is about the same since yesterday, denies any new muscle weakness or any numbness or tingling, reports improvement in her LUE involuntary movements, denies any fever or chills no cough or shortness of breath, reports itching sensation over the bridge over left chest, the bruise does not look infected. Patient reports no trouble swallowing food. Physical Exam Physical Exam: GENERAL: Alert and oriented x3. NAD, on RA. Obese Class III. HEENT: No pallor, no icterus. Pupils equal, round and reactive to light. Oral mucosa moist. NECK: No JVD, no neck masses. HEART: S1 and S2 heard. Regular rate and rhythm. No murmur, no gallop. RESPIRATORY SYSTEM: Normal AP diameter. No accessory muscle use. No wheezing, no crackles. ABDOMEN: Soft, bowel sounds present, nontender, no distention. CENTRAL NERVOUS SYSTEM: No facial droop. Speech is clear. Obeys simple commands. LUE involuntary movements noted. power symmetric bilaterally. EXTREMITIES: No edema, Left elbow w/ bruise, left lateral chest with bruise. Results & Data Results & Data Vital Signs (Past 12 Hours) Vital Signs Temp Pulse Pulse Resp BP Pulse Ox O2 Del Method 08/16/22 11:19 36.5 C 78 18 129/75 96 Room Air 08/16/22 07:19 36.8 C 85 18 158/88 H 96 Room Air 08/16/22 04:20 71 21 94 08/16/22 03:32 36.6 C 83 20 148/82 H 92 CPAP O2 Flow Rate 08/16/22 11:19 08/16/22 07:19 08/16/22 04:20 08/16/22 03:32 5
--- NOTE | 2022-08-16 13:19 | Pharmacy Report ---
- Date of Service August 16, 2022 - Pharmacy CVA/TIA Medication Review Medications to Prevent Stroke handout has been added to the patients discharge packet. Antiplatelet(s) * None * Antiplatelet therapy deferred because per neurology this is a cardioembolic stroke associated with recent cardioversion. This was confirmed by hospitalist. Anit-platelet therapy is not indicated. Continue only on Eliquis. Cholesterol * High intensity statin: atorvastatin 40 mg daily. DVT Prophylaxis * Pharmacologic and mechanical DVT prophylaxis deferred- patient is on Eliquis Therapeutic Anticoagulation * Hx Afib/Aflutter noted, and patient is currently receiving Eliquis Type 2 Diabetes * Patient has T2DM and patient is prescribed dulaglutide * "Medications to prevent stroke" handout has already been added to the patient's discharge packet.
[2022-08-16] MEDS ORDERED: MoRPHine SULFATE 4 MG/ML 1 ML CARP\\VIAL IV PRN (19:45)
[2022-08-16] MEDS ORDERED: PROMETHAZINE HCL 12.5 MG in SODIUM CHLORIDE 0.9% 50 ML IV PRN (19:45)
[2022-08-16] MEDS: oxyCODONE HCL IR 5 MG TAB (IMMEDIATE RELEASE) PO PRN (20:16)
[2022-08-16] MEDS: MONTELUKAST SODIUM 10 MG TABLET PO SCH (20:18)
[2022-08-16] MEDS: ATORVASTATIN 40 MG TAB PO SCH (20:18)
[2022-08-17] MEDS: oxyCODONE HCL IR 5 MG TAB (IMMEDIATE RELEASE) PO PRN ×3 (02:16→16:28)
[2022-08-17] MEDS: diphenhydrAMINE 50 MG/ML VIAL IV PRN ×2 (05:23→19:23)
[2022-08-17 06:40] LABS: Basophils # (auto) 0.01 K/uL (0-0.2); Basophils % (auto) 0.1 %; Hematocrit (blood only) 34.9 % (37.0-47.0); Hemoglobin 11.7 g/dl (12.0-16.0); Immature Granulocytes # (auto) 0.04 K/uL (0.01-0.20); Immature Granulocytes % (auto) 0.4 %; Lymphocytes % (auto) 14.3 %; Mean Corpuscular Hemoglobin 31.4 pg (25.0-34.0); Mean Corpuscular Hgb Conc 33.5 g/dL (32.0-36.0); Mean Corpuscular Volume 93.6 fL (80.0-100.0); Monocytes # (auto) 0.71 K/uL (0.11-0.59); Monocytes % (auto) 6.8 %; Neutrophils # (auto) 8.24 K/uL (1.40-6.50); Neutrophils % (auto) 78.4 %; Platelet Count 246 K/uL (130-400); RDW Coefficient of Variation 13.8 % (11.5-14.5); RDW Standard Deviation 47.2 fL (36.4-46.3); Red Blood Count 3.73 M/uL (4.20-5.40)
[2022-08-17 07:06] LABS: BUN Creatinine Ratio 22.5 (10-20); Calcium 9.3 mg/dl (8.6-10.3); Creatinine Clr Calc Pharmacy 84.7 ml/min; Est GFR (African American) 87.8 ml/min; Est GFR (Non-African American) 75.8 ml/min; Magnesium 1.9 mg/dl (1.7-2.4); Phosphorus 3.6 mg/dl (2.5-4.9)
[2022-08-17] MEDS: INSULIN ASPART PER UNIT CHARGE SC SCH ×4 (08:18→20:38)
[2022-08-17] MEDS: APIXABAN 5 MG TABLET PO SCH ×2 (08:32→20:40)
[2022-08-17] MEDS: AMIODARONE 200 MG TAB PO SCH ×2 (08:32→20:40)
[2022-08-17] MEDS: buPROPion XL 300 MG TABCR PO SCH (08:33)
[2022-08-17] MEDS: METOPROLOL SUCC 50MG EXT REL TAB PO SCH ×2 (08:34→20:40)
[2022-08-17] MEDS: LOSARTAN POTASSIUM 50 MG TAB PO SCH (08:34)
[2022-08-17] MEDS: FLUTICASONE FUROATE 200MCG 14 PUFFS/INHALER INH SCH (08:34)
[2022-08-17] MEDS: UMECLIDINIUM/VILANTEROL 62.5/25MCG 7 PUFFS/INHALER INH SCH (08:35)
--- NOTE | 2022-08-17 11:23 | Cardiology Progress Note ---
Date of Service August 17, 2022 Assessment & Plan (1) Acute right MCA stroke: Plan: * Presumed cardioembolic stroke in the setting of recent direct-current cardioversion. * Neurology input noted and appreciated. Silvanamiri resumed * Plan for discharge to inpatient rehab (2) Atrial fibrillation with RVR: Plan: Remains in sinus rhythm. Continue prior to hospital treatment metoprolol succinate 100 mg twice daily, amiodarone 200 mg twice daily (3) HTN (hypertension): Plan: Continue metoprolol, losartan. (4) Dyslipidemia: Plan: Continue atorvastatin 40 mg daily. Most recent outpatient LDL cholesterol was in December, and was 61 mg/dL, 63 mg/dl this am. Admission and Anticipated Discharge Date Admission Date: August 16, 2022 Subjective Patient seen and examined at the bedside. Left-sided weakness improving. Reports ongoing headache unchanged over the past 24 hours. Oral anticoagulation restarted. Denies chest discomfort or palpitations. Telemetry reveals sinus rhythm in the 60s. Review of Systems Review of Systems: All systems reviewed & are unremarkable except as noted in Subjective Physical Exam Constitutional: well nourished; no acute distress Respiratory: + respiratory distress; no labored breathing and no retractions Auscultation: no crackles, no rales, no rhonchi and no wheezes Cardiovascular: Rate/Rhythm: regular rate and regular rhythm Heart Sounds: normal S1 and normal S2 Vessels: no JVD and no carotid bruit Extremities: no edema Neurologic: Motor/Sensory: + abnormal movement (Left-sided weakness) Results & Data Vital Signs (Past 12 Hours) Vital Signs Temp Pulse Pulse Pulse Resp BP BP 08/17/22 10:52 36.6 C 62 18 138/93 08/17/22 08:00 08/17/22 07:16 36.6 C 63 17 118/81 08/17/22 03:25 70 23 08/17/22 03:33 36.7 C 63 14 115/77 Pulse Ox O2 Del Method 08/17/22 10:52 95 Room Air 08/17/22 08:00 Room Air 08/17/22 07:16 93 Room Air 08/17/22 03:25 95 08/17/22 03:33 93 CPAP Laboratory Results CBC 08/17/22 Range/Units 06:11 WBC 10.50 (4.8-10.8) K/ul RBC 3.73 L (4.20-5.40) M/uL Hgb 11.7 L (12.0-16.0) g/dl Hct 34.9 L (37.0-47.0) % Plt Count 246 (130-400) K/uL Neut # (Auto) 8.24 H (1.40-6.50) K/uL Lymph # (Auto) 1.50 (1.2-3.4) K/uL [place] # (Auto) 0.71 H (0.11-0.59) K/uL Eos # (Auto) 0.00 (0-0.50) K/uL Baso # (Auto) 0.01 (0-0.2) K/uL Comprehensive Metabolic Panel 08/17/22 Range/Units 06:11 Sodium 137 (136-145) mmol/L Potassium 4.0 (3.5-5.1) mmol/L Chloride 104 (98-107) mmol/L Carbon Dioxide 26 (21-32) mmol/L BUN 18 (6-23) mg/dl Creatinine 0.80 (0.6-1.2) mg/dl Glucose 142 H (70-99(Fasting)) mg/dl Calcium 9.3 (8.6-10.3) mg/dl Intake and Output 08/16/22 08/17/22 08/17/22 22:59 06:59 14:59 Intake Total 200 / 950 550 / 950 Output Total 800 / 2300 950 / 2300 Balance -600 / -1350 -400 / -1350 Intake: Oral 200 / 950 550 / 950 Output: Urine 800 / 2300 950 / 2300 Other: Weight 113.8 kg Weight Measurement Method Built in [facility]
--- NOTE | 2022-08-17 14:45 | Hospitalist Progress Note ---
Date of Service August 17, 2022 Assessment & Plan (1) Stroke-like symptoms: (2) Involuntary movements: (3) Atrial fibrillation: (4) HTN (hypertension): (5) HLD (hyperlipidemia): (6) T2DM (type 2 diabetes mellitus): (7) Sleep apnea: (8) Hypomagnesemia: Plan 67-year-old female who has a significant past medical history of T2DM, HTN, HLD, COPD, LILI on CPAP, persistent atrial fibrillation status post DCCV on 08/14 anticoagulated on Eliquis, HTN, history of migraine, former tobacco use and depression with anxiety who presented to ED 08/15 after sustaining fall x2 prior to arrival. Of significance patient with persistent atrial fibrillation. Underwent DCCV yesterday, 08/14/2022, with successful conversion to normal sinus rhythm. Per pt, she has remained on Eliquis uninterrupted with her last dose being the morning prior to arrival. She is being managed for the following: Acute right MCA stroke: Per admitting MRI. Admitting CT head, CTA head and neck, and MRI brain reviewed. Involuntary movements of left upper extremity Likely cardioembolic given recent cardioversion [see above]. Patient states compliance with Eliquis. LDL 63 and A1c 6.8 this admission. Lyme screen negative. Neuro evaled, resumed her home dose of Eliquis. Patient reports improvement in her LUE involuntary movements, denies any new neurological signs or symptoms. We will continue to monitor headache, if with worsening headache repeat CAT scan. Fall precaution, PT/OT. likely will need rehab Speech evaluated, appreciate recs. Hypomagnesemia: Monitor and replete. Pulmonary Edema At admission: VBG normal, procalcitonin negative. Possible component of heart failure in setting of DCCV, monitor for symptoms. Passed dysphagia screen per speech. ECHO reviewed. Atrial fibrillation, persistent Status post DCCV, now in sinus rhythm Continue amiodarone, metoprolol and Eliquis. Rash to L side of thorax: Bruise from fall. Continue with as needed anti-itch cream and Benadryl. Other chronic medical conditions: T2DM: Last A1c in 2021 was 6.6, SSI LILI: CPAP at bedtime COPD: No acute exacerbation. Continue home inhalers DVT prophylaxis: Eliquis for A-fib Full code PCP: Luz Rhed, [facility] Dispo: pt/ot, cm to assist with dc plan. likely rehab. Can be dc'd to rehab. Admission and Anticipated Discharge Date Admission Date: August 16, 2022 Subjective Patient seen and examined at bedside as a follow-up of acute right MCA stroke likely cardioembolic, involuntary movements of LUE. Patient was working with PT, on room air, NAD, reports some headache which is about the same since yesterday - she is made aware to report increase in headache, denies any new muscle weakness or any numbness or tingling, reports improvement in her LUE involuntary movements, denies any fever or chills no cough or shortness of breath, reports itching sensation over the bridge over left chest, the bruise does not look infected. Patient reports no trouble swallowing food. Physical Exam Physical Exam: GENERAL: Alert and oriented x3. NAD, on RA. Obese Class III. HEENT: No pallor, no icterus. Pupils equal, round and reactive to light. Oral mucosa moist. NECK: No JVD, no neck masses. HEART: S1 and S2 heard. Regular rate and rhythm. No murmur, no gallop. RESPIRATORY SYSTEM: Normal AP diameter. No accessory muscle use. No wheezing, no crackles. ABDOMEN: Soft, bowel sounds present, nontender, no distention. CENTRAL NERVOUS SYSTEM: No facial droop. Speech is clear. Obeys simple commands. LUE involuntary movements noted, improving. power symmetric bilaterally. EXTREMITIES: No edema, Left elbow w/ bruise, left lateral chest with bruise. Results & Data Results & Data Vital Signs (Past 12 Hours) Vital Signs Temp Pulse Pulse Pulse Resp BP BP 08/17/22 10:52 36.6 C 62 18 138/93 08/17/22 08:00 08/17/22 07:16 36.6 C 63 17 118/81 08/17/22 03:25 70 23 08/17/22 03:33 36.7 C 63 14 115/77 Pulse Ox O2 Del Method 08/17/22 10:52 95 Room Air 08/17/22 08:00 Room Air 08/17/22 07:16 93 Room Air 08/17/22 03:25 95 08/17/22 03:33 93 CPAP
[2022-08-17] MEDS: ATORVASTATIN 40 MG TAB PO SCH (20:40)
[2022-08-17] MEDS: MONTELUKAST SODIUM 10 MG TABLET PO SCH (20:40)
[2022-08-17] MEDS: ACETAMINOPHEN 325 MG TAB PO PRN (20:40)
[2022-08-18] MEDS: oxyCODONE HCL IR 5 MG TAB (IMMEDIATE RELEASE) PO PRN ×2 (00:36→20:41)
[2022-08-18 06:56] LABS: Basophils # (auto) 0.03 K/uL (0-0.2); Basophils % (auto) 0.4 %; Eosinophils # (auto) 0.05 K/uL (0-0.50); Eosinophils % (auto) 0.6 %; Hematocrit (blood only) 38.3 % (37.0-47.0); Hemoglobin 12.4 g/dl (12.0-16.0); Immature Granulocytes # (auto) 0.05 K/uL (0.01-0.20); Immature Granulocytes % (auto) 0.6 %; Lymphocytes # (auto) 2.05 K/uL (1.2-3.4); Lymphocytes % (auto) 25.9 %; Mean Corpuscular Hemoglobin 31.2 pg (25.0-34.0); Mean Corpuscular Hgb Conc 32.4 g/dL (32.0-36.0); Mean Corpuscular Volume 96.2 fL (80.0-100.0); Mean Platelet Volume 9.7 fL (9.4-12.4); Monocytes # (auto) 0.82 K/uL (0.11-0.59); Monocytes % (auto) 10.3 %; Neutrophils # (auto) 4.93 K/uL (1.40-6.50); Neutrophils % (auto) 62.2 %; Platelet Count 253 K/uL (130-400); RDW Coefficient of Variation 13.8 % (11.5-14.5); Red Blood Count 3.98 M/uL (4.20-5.40); White Blood Count 7.93 K/ul (4.8-10.8)
[2022-08-18 07:20] LABS: BUN Creatinine Ratio 28.2 (10-20); Calcium 9.5 mg/dl (8.6-10.3); Est GFR (African American) 64.7 ml/min; Est GFR (Non-African American) 55.8 ml/min; Potassium 4.6 mmol/L (3.5-5.1)
[2022-08-18] MEDS: APIXABAN 5 MG TABLET PO SCH ×2 (08:01→20:42)
[2022-08-18] MEDS: METOPROLOL SUCC 50MG EXT REL TAB PO SCH ×2 (08:01→20:42)
[2022-08-18] MEDS: LOSARTAN POTASSIUM 50 MG TAB PO SCH (08:01)
[2022-08-18] MEDS: AMIODARONE 200 MG TAB PO SCH ×2 (08:02→20:42)
[2022-08-18] MEDS: buPROPion XL 300 MG TABCR PO SCH (08:02)
[2022-08-18] MEDS: UMECLIDINIUM/VILANTEROL 62.5/25MCG 7 PUFFS/INHALER INH SCH (08:03)
[2022-08-18] MEDS: FLUTICASONE FUROATE 200MCG 14 PUFFS/INHALER INH SCH (08:03)
[2022-08-18] MEDS: INSULIN ASPART PER UNIT CHARGE SC SCH ×4 (08:23→20:15)
--- NOTE | 2022-08-18 12:33 | Hospitalist Progress Note ---
Date of Service August 18, 2022 Assessment & Plan (1) Stroke-like symptoms: (2) Involuntary movements: (3) Atrial fibrillation: (4) HTN (hypertension): (5) HLD (hyperlipidemia): (6) T2DM (type 2 diabetes mellitus): (7) Sleep apnea: (8) Hypomagnesemia: Plan 67-year-old female who has a significant past medical history of T2DM, HTN, HLD, COPD, LILI on CPAP, persistent atrial fibrillation status post DCCV on 08/14 anticoagulated on Eliquis, HTN, history of migraine, former tobacco use and depression with anxiety who presented to ED 08/15 after sustaining fall x2 prior to arrival. Of significance patient with persistent atrial fibrillation. Underwent DCCV yesterday, 08/14/2022, with successful conversion to normal sinus rhythm. Per pt, she has remained on Eliquis uninterrupted with her last dose being the morning prior to arrival. She is being managed for the following: Acute right MCA stroke: Per admitting MRI. Admitting CT head, CTA head and neck, and MRI brain reviewed. Involuntary movements of left upper extremity Likely cardioembolic given recent cardioversion [see above]. Patient states compliance with Eliquis. LDL 63 and A1c 6.8 this admission. Lyme screen negative. Neuro evaled, resumed her home dose of Eliquis. Patient reports improvement in her LUE involuntary movements, denies any new neurological signs or symptoms. We will continue to monitor headache, if with worsening headache repeat CAT scan. Fall precaution, PT/OT. likely will need rehab Speech evaluated, appreciate recs. Hypomagnesemia: Monitor and replete. Pulmonary Edema At admission: VBG normal, procalcitonin negative. Possible component of heart failure in setting of DCCV, monitor for symptoms. Passed dysphagia screen per speech. ECHO reviewed. Atrial fibrillation, persistent Status post DCCV, now in sinus rhythm Continue amiodarone, metoprolol and Eliquis. Rash to L side of thorax: Bruise from fall. Continue with as needed anti-itch cream and Benadryl. Other chronic medical conditions: T2DM: Last A1c in 2021 was 6.6, SSI LILI: CPAP at bedtime COPD: No acute exacerbation. Continue home inhalers DVT prophylaxis: Eliquis for A-fib Full code PCP: Luz Rhed, [employer] Dispo: pt/ot, cm to assist with dc plan. likely rehab. Can be dc'd to rehab. Admission and Anticipated Discharge Date Admission Date: August 16, 2022 Subjective Patient seen and examined at bedside as a follow-up of acute right MCA stroke likely cardioembolic, involuntary movements of LUE. Patient sitting up in chair, on room air, NAD, reports some headache which is about the same since admission - she is made aware to report increase in headache, denies any new muscle weakness or any numbness or tingling, reports improvement in her LUE involuntary movements, denies any fever or chills no cough or shortness of breath, reports itching sensation over the bruise over left chest, the bruise does not look infected. Patient reports no trouble swallowing food. Physical Exam Physical Exam: GENERAL: Alert and oriented x3. NAD, on RA. Obese Class III. HEENT: No pallor, no icterus. Pupils equal, round and reactive to light. Oral mucosa moist. NECK: No JVD, no neck masses. HEART: S1 and S2 heard. Regular rate and rhythm. No murmur, no gallop. RESPIRATORY SYSTEM: Normal AP diameter. No accessory muscle use. No wheezing, no crackles. ABDOMEN: Soft, bowel sounds present, nontender, no distention. CENTRAL NERVOUS SYSTEM: No facial droop. Speech is clear. Obeys simple commands. LUE involuntary movements noted, improving. power symmetric bilaterally. EXTREMITIES: No edema, Left elbow w/ bruise, left lateral chest with bruise. Results & Data Results & Data Vital Signs (Past 12 Hours) Vital Signs Temp Pulse Pulse Resp BP Pulse Ox O2 Del Method 08/18/22 11:25 36.8 C 57 L 18 141/78 H 94 Room Air 08/18/22 07:11 36.8 C 59 L 17 130/80 96 Room Air 08/18/22 04:00 36.5 C 56 L 18 129/84 94 CPAP 08/18/22 03:34 61 17 97
[2022-08-18] MEDS: ACETAMINOPHEN 325 MG TAB PO PRN (16:07)
[2022-08-18] MEDS: ATORVASTATIN 40 MG TAB PO SCH (20:42)
[2022-08-18] MEDS: MONTELUKAST SODIUM 10 MG TABLET PO SCH (20:42)
[2022-08-18] MEDS: diphenhydrAMINE 50 MG/ML VIAL IV PRN (22:45)
[2022-08-19] MEDS: oxyCODONE HCL IR 5 MG TAB (IMMEDIATE RELEASE) PO PRN ×2 (03:03→09:36)
[2022-08-19 06:59] LABS: Creatinine Clr Calc Pharmacy 71.4 ml/min; Est GFR (African American) 71.3 ml/min; Est GFR (Non-African American) 61.5 ml/min
[2022-08-19] MEDS: INSULIN ASPART PER UNIT CHARGE SC SCH ×4 (08:46→21:32)
[2022-08-19] MEDS: AMIODARONE 200 MG TAB PO SCH ×2 (09:26→21:56)
[2022-08-19] MEDS: LOSARTAN POTASSIUM 50 MG TAB PO SCH (09:26)
[2022-08-19] MEDS: buPROPion XL 300 MG TABCR PO SCH (09:26)
[2022-08-19] MEDS: METOPROLOL SUCC 50MG EXT REL TAB PO SCH ×2 (09:26→21:56)
[2022-08-19] MEDS: FLUTICASONE FUROATE 200MCG 14 PUFFS/INHALER INH SCH (09:26)
[2022-08-19] MEDS: UMECLIDINIUM/VILANTEROL 62.5/25MCG 7 PUFFS/INHALER INH SCH (09:26)
[2022-08-19] MEDS: APIXABAN 5 MG TABLET PO SCH (09:57)
--- NOTE | 2022-08-19 12:32 | Hospitalist Progress Note ---
Date of Service August 19, 2022 Assessment & Plan (1) Stroke-like symptoms: (2) Involuntary movements: (3) Atrial fibrillation: (4) HTN (hypertension): (5) HLD (hyperlipidemia): (6) T2DM (type 2 diabetes mellitus): (7) Sleep apnea: (8) Hypomagnesemia: Plan 67-year-old female who has a significant past medical history of T2DM, HTN, HLD, COPD, LILI on CPAP, persistent atrial fibrillation status post DCCV on 08/14 anticoagulated on Eliquis, HTN, history of migraine, former tobacco use and depression with anxiety who presented to ED 08/15 after sustaining fall x2 prior to arrival. Of significance patient with persistent atrial fibrillation. Underwent DCCV yesterday, 08/14/2022, with successful conversion to normal sinus rhythm. Per pt, she has remained on Eliquis uninterrupted with her last dose being the morning prior to arrival. She is being managed for the following: Acute right MCA stroke: Per admitting MRI. Admitting CT head, CTA head and neck, and MRI brain reviewed. Involuntary movements of left upper extremity CVA likely due to recent cardioversion for persistent A fib Likely cardioembolic given recent cardioversion [see above]. Patient states compliance with Eliquis. LDL 63 and A1c 6.8 this admission. Lyme screen negative. Neuro evaled, resumed her home dose of Eliquis. Patient reports improvement in her LUE involuntary movements, denies any new neurological signs or symptoms. We will continue to monitor headache, if with worsening headache repeat CAT scan. Fall precaution, PT/OT. likely will need rehab Speech evaluated, appreciate recs. Hypomagnesemia: Monitor and replete. Pulmonary Edema At admission: VBG normal, procalcitonin negative. Possible component of heart failure in setting of DCCV, monitor for symptoms. Passed dysphagia screen per speech. ECHO reviewed. Atrial fibrillation, persistent Status post DCCV, now in sinus rhythm Continue amiodarone, metoprolol and Eliquis. Rash to L side of thorax: Bruise from fall. Continue with as needed anti-itch cream and Benadryl. Other chronic medical conditions: T2DM: Last A1c in 2021 was 6.6, SSI LILI: CPAP at bedtime COPD: No acute exacerbation. Continue home inhalers DVT prophylaxis: Eliquis for A-fib Full code PCP: DONNA Winchester Dispo: pt/ot, cm to assist with dc plan. likely rehab. Can be dc'd to rehab. to med/surg. Admission and Anticipated Discharge Date Admission Date: August 16, 2022 Subjective Patient seen and examined at bedside as a follow-up of acute right MCA stroke likely cardioembolic, involuntary movements of LUE. Patient sitting up in chair, on room air, NAD, reports stable mild headache, denies any new muscle weakness or any numbness or tingling, reports improvement in her LUE involuntary movements, denies any fever or chills no cough or shortness of breath, reports itching sensation over the bruise over left chest, the bruise does not look infected. Patient reports no trouble swallowing food. Physical Exam Physical Exam: GENERAL: Alert and oriented x3. NAD, on RA. Obese Class III. HEENT: No pallor, no icterus. Pupils equal, round and reactive to light. Oral mucosa moist. NECK: No JVD, no neck masses. HEART: S1 and S2 heard. Regular rate and rhythm. No murmur, no gallop. RESPIRATORY SYSTEM: Normal AP diameter. No accessory muscle use. No wheezing, no crackles. ABDOMEN: Soft, bowel sounds present, nontender, no distention. CENTRAL NERVOUS SYSTEM: No facial droop. Speech is clear. Obeys simple commands. LUE involuntary movements noted, improving. power symmetric bilaterally. EXTREMITIES: No edema, Left elbow w/ bruise, left lateral chest with bruise. Results & Data Results & Data Vital Signs (Past 12 Hours) Vital Signs Temp Pulse Pulse Resp BP Pulse Ox O2 Del Method 08/19/22 11:22 36.6 C 68 19 125/64 98 Room Air 08/19/22 08:00 56 L 08/19/22 08:25 36.5 C 56 L 18 142/82 H 94 Room Air 08/19/22 03:35 36.3 C L 57 L 19 169/97 H 95 Room Air
[2022-08-19] MEDS ORDERED: MAGNESIUM SULFATE / D5W 1 GM/100 ML BAG IV ONE (14:40)
[2022-08-19] MEDS ORDERED: diphenhydrAMINE 50 MG/ML VIAL IV STA (14:40)
[2022-08-19] MEDS ORDERED: METOCLOPRAMIDE HCL INJ 5 MG/ML 2 ML VIAL IV STA (14:40)
[2022-08-19] MEDS ORDERED: KETOROLAC TROMETHAMINE 15 MG/ML VIAL IV STA (14:40)
[2022-08-19] MEDS ORDERED: dexAMETHasone**PF** 10 MG/ML VIAL IV ONE (14:40)
[2022-08-19] MEDS ORDERED: SODIUM CHLORIDE 0.9% 500 ML IV SCH (14:45)
[2022-08-19] MEDS: ACETAMINOPHEN 325 MG TAB PO PRN ×2 (14:49→21:54)
[2022-08-19] MEDS ORDERED: dexAMETHasone 10 MG in SYRINGE 0 ML IV ONE (15:00)
[2022-08-19 20:35] LABS: Basophils # (auto) 0.02 K/uL (0-0.2); Basophils % (auto) 0.2 %; Eosinophils # (auto) 0.04 K/uL (0-0.50); Eosinophils % (auto) 0.4 %; Hematocrit (blood only) 39.3 % (37.0-47.0); Hemoglobin 13.1 g/dl (12.0-16.0); Immature Granulocytes % (auto) 2.2 %; Lymphocytes # (auto) 0.76 K/uL (1.2-3.4); Lymphocytes % (auto) 8.4 %; Mean Corpuscular Hemoglobin 31.5 pg (25.0-34.0); Mean Corpuscular Hgb Conc 33.3 g/dL (32.0-36.0); Mean Corpuscular Volume 94.5 fL (80.0-100.0); Mean Platelet Volume 10.1 fL (9.4-12.4); Monocytes # (auto) 0.37 K/uL (0.11-0.59); Monocytes % (auto) 4.1 %; Neutrophils # (auto) 7.61 K/uL (1.40-6.50); Neutrophils % (auto) 84.7 %; Platelet Count 238 K/uL (130-400); RDW Coefficient of Variation 13.4 % (11.5-14.5); RDW Standard Deviation 46.4 fL (36.4-46.3); Red Blood Count 4.16 M/uL (4.20-5.40)
[2022-08-19 20:57] LABS: Albumin Globulin Ratio 1.5 (0.9-2); Albumin Level 4.1 gm/dl (3.4-5.0); BUN Creatinine Ratio 28.4 (10-20); Bilirubin,Total 0.8 mg/dl (0.2-1.0); Calcium 9.2 mg/dl (8.6-10.3); Creatinine Clr Calc Pharmacy 58.5 ml/min; Est GFR (Non-African American) 48.3 ml/min; Globulin 2.8 gm/dl (2.5-4.0); Magnesium 2.1 mg/dl (1.7-2.4); Potassium 4.8 mmol/L (3.5-5.1); Total Protein 6.9 gm/dl (6.0-8.3)
[2022-08-19 21:06] LABS: Partial Thromboplastin Time 28.6 Seconds (21.0-31.0)
[2022-08-19] MEDS: MONTELUKAST SODIUM 10 MG TABLET PO SCH (21:55)
[2022-08-19] MEDS: ATORVASTATIN 40 MG TAB PO SCH (21:56)
--- NOTE | 2022-08-19 22:17 | CT Scan Report ---
Exam(s): CT HEAD Without Contrast EXAM: CT Head Without Intravenous Contrast CLINICAL HISTORY: Reason for exam: davila, noac tx. TECHNIQUE: Axial computed tomography images of the head/brain without intravenous contrast. CTDI is 38.1 mGy and DLP is 703.85 mGy-cm. Automated exposure control was utilized for the study. A dose lowering technique was utilized adhering to the principles of ALARA. COMPARISON: 08/15/2022 FINDINGS: Brain: Subacute right posterior parietal infarct without evidence of hemorrhagic conversion. No significant white matter disease. Ventricles: Unremarkable. No ventriculomegaly. Bones/joints: Unremarkable. No acute fracture. Soft tissues: Unremarkable. Sinuses: Unremarkable as visualized. No acute sinusitis. Mastoid air cells: Unremarkable as visualized. No mastoid effusion. IMPRESSION: Subacute right posterior parietal infarct without evidence of hemorrhagic conversion. Electronically signed by: Melvin Bone M.D. 08/19/22 22:16 PM
[2022-08-19] MEDS ORDERED: ALBUMIN 25% 25 GM/100 ML VIAL IV ONE (22:20)
--- NOTE | 2022-08-20 02:39 | Communication Note ---
Date of Service: August 20, 2022 Made aware of patient lethargy. CT head: Subacute right posterior parietal infarct without evidence of hemorrhagic conversion. Hold narcotics and neuropsychotropic until patient more awake.
[2022-08-20] MEDS: INSULIN ASPART PER UNIT CHARGE SC SCH ×3 (08:04→16:54)
[2022-08-20] MEDS: LOSARTAN POTASSIUM 50 MG TAB PO SCH (08:31)
[2022-08-20] MEDS: METOPROLOL SUCC 50MG EXT REL TAB PO SCH (08:31)
[2022-08-20] MEDS: AMIODARONE 200 MG TAB PO SCH (08:31)
[2022-08-20] MEDS: UMECLIDINIUM/VILANTEROL 62.5/25MCG 7 PUFFS/INHALER INH SCH (08:33)
[2022-08-20] MEDS: FLUTICASONE FUROATE 200MCG 14 PUFFS/INHALER INH SCH (08:33)
[2022-08-20 09:00] LABS: Hemoglobin 13.1 g/dl (12.0-16.0); Mean Corpuscular Hgb Conc 33.6 g/dL (32.0-36.0); Mean Corpuscular Volume 92.4 fL (80.0-100.0); Mean Platelet Volume 10.7 fL (9.4-12.4); Platelet Count 236 K/uL (130-400); RDW Coefficient of Variation 13.2 % (11.5-14.5); Red Blood Count 4.22 M/uL (4.20-5.40); White Blood Count 7.93 K/ul (4.8-10.8)
[2022-08-20] MEDS: APIXABAN 5 MG TABLET PO SCH (09:14)
[2022-08-20 09:35] LABS: BUN Creatinine Ratio 32.5 (10-20); Calcium 9.6 mg/dl (8.6-10.3); Creatinine Clr Calc Pharmacy 88.1 ml/min; Est GFR (Non-African American) 79.3 ml/min; Magnesium 2.1 mg/dl (1.7-2.4); Phosphorus 2.8 mg/dl (2.5-4.9); Potassium 4.5 mmol/L (3.5-5.1)
--- NOTE | 2022-08-20 12:45 | Discharge Summary ---
Date of Service August 20, 2022 Admission HPI Per Admitting Provider This is a 67-year-old female who has a significant past medical history of T2DM, HTN, HLD, COPD, LILI on CPAP, persistent atrial fibrillation status post DCCV on 08/14 anticoagulated on Eliquis, HTN, history of migraine, former tobacco use and depression with anxiety who presents to ED after sustaining a fall x2 prior to arrival. Patient woke up this morning and tried to get a bed at approximately 5 AM whenever she fell and was unable to get up. She had to call her sister to assist her. The sister then heard the patient fall at approximately 730 in the bathroom and stated this was on a concrete floor complaining of hip and elbow pain. Of significance patient underwent cardioversion yesterday due to persistent A-fib that resulted in normal sinus rhythm. She has been on Eliquis uninterrupted. Stroke alert was not called due to patient being on Eliquis and being out of the timeframe for possible tPA and concern for trauma. Currently patient complains of headache, left elbow pain, right hip pain, involuntary movement to left arm, restlessness and rash on her left side under her breast that is very itchy. Sister at bedside denies noting any facial droop, slurred speech, focal weakness or other strokelike symptoms. Patient states only new medication is amiodarone that she started approximately a week and a half ago. She was able to take all of her morning meds this morning. Currently she is com plaining of being hungry. She denies any fever, chills, sweats, lightheadedness, dizziness, chest pain, palpitations, shortness of breath, nausea, vomiting, abdominal pain, change in bowel or urinary habits, lower extremity edema, orthopnea. In ED patient underwent head CT as well as head and neck CTAs which was negative for any acute large vessel occlusion, hemorrhage or apparent CVA. She also underwent elbow x-ray, C-spine x-ray and CT abdomen pelvis was negative for any acute abnormality. Chest x-ray did reveal pulmonary edema and right pleural effusion. Admission Exam Per Admitting Provider Constitutional: WD/WN, F, very restless and involuntary movement of left arm, vitals as above, sitting up in bed, pleasant, conversing easily Head: Normocephalic, Atraumatic Eyes: PERRL, conjunctivae normal, anicteric sclerae, L conjunctiva slightly erythematous ENMT: external ear and nose normal, oropharynx normal Neck: trachea midline, no thyromegaly normal visual inspection Respiratory: normal respiratory effort, lungs clear to auscultation, no wheeze, rales, rhonchi. Normal insp/exp effort, no accessory muscle use Cardiovascular: RRR, no murmur, no edema Vessels: no JVD or carotid bruit Chest: normal inspection of chest Abdomen: normal bowel sounds, soft, nontender, no hepatosplenomegaly Musculoskeletal: no cyanosis or clubbing, extremities motor strength 5/5 on R and 4/5, pt with difficulty initiating movement to LUE and LLE, Skin: no rashes, warm and dry normal turgor Neurologic: PERRL, EOMI, accommodation nl, no face palsy, no dysarthria CN's II-XI intact bilaterally and moves all extremities, involuntary movement to LUE, difficult with point to point and fine motor movement compared to the R. Psychiatric: A+Ox3, euthymic affect Lymphatic: no cervical or axillary lymphadenopathy : deferred Principal Diagnosis Acute right MCA stroke CVA likely due to recent cardioversion for persistent A-fib Persistent A-fib, history of Fall Discharge Exam GENERAL: Alert and oriented x3. NAD, on RA. Obese Class III. HEENT: No pallor, no icterus. Pupils equal, round and reactive to light. Oral mucosa moist. NECK: No JVD, no neck masses. HEART: S1 and S2 heard. Regular rate and rhythm. No murmur, no gallop. RESPIRATORY SYSTEM: Normal AP diameter. No accessory muscle use. No wheezing, no crackles. ABDOMEN: Soft, bowel sounds present, nontender, no distention. CENTRAL NERVOUS SYSTEM: No facial droop. Speech is clear. Obeys simple commands. LUE involuntary movements noted, improving. power symmetric bilaterally. EXTREMITIES: No edema, Left elbow w/ bruise, left lateral chest with bruise. Discharge Data Allergies Allergy/AdvReac Type Severity Reaction Status Date / Time erythromycin base Allergy Severe Rash Verified 08/15/22 15:20 Sulfa (Sulfonamide Allergy Severe Rash Verified 08/15/22 15:20 Antibiotics) aspirin Allergy Intermediate Rash Verified 08/15/22 15:20 latex Allergy Intermediate RASH Verified 08/15/22 15:20 Consultations 08/15/22 15:12 ED Decision to Admit Stat 08/15/22 15:26 Consult Neurology Routine 08/16/22 08:38 Consult Cardiology Routine Ordered Studies 08/15/22 13:37 CT cervical spine wo con Stat 08/15/22 13:38 CT abd pelvis IV con only Stat CT angio head w con Stat CT angio neck with con Stat CT head/brain wo con Stat 08/15/22 15:58 MR brain wo con Routine 08/19/22 19:28 CT head/brain wo con Stat Hospital Course (1) Stroke-like symptoms: (2) Involuntary movements: (3) Atrial fibrillation: (4) HTN (hypertension): (5) HLD (hyperlipidemia): (6) T2DM (type 2 diabetes mellitus): (7) Sleep apnea: (8) Hypomagnesemia: Plan 67-year-old female who has a significant past medical history of T2DM, HTN, HLD, COPD, LILI on CPAP, persistent atrial fibrillation status post DCCV on 08/14 anticoagulated on Eliquis, HTN, history of migraine, former tobacco use and depression with anxiety who presented to ED 08/15 after sustaining fall x2 prior to arrival. Of significance patient with persistent atrial fibrillation. Underwent DCCV yesterday, 08/14/2022, with successful conversion to normal sinus rhythm. Per pt, she has remained on Eliquis uninterrupted with her last dose being the morning prior to arrival. She was managed for the following: Acute right MCA stroke: Per admitting MRI. Admitting CT head, CTA head and neck, and MRI brain reviewed. Involuntary movements of left upper extremity CVA likely due to recent cardioversion for persistent A fib Likely cardioembolic given recent cardioversion [see above]. Patient states compliance with Eliquis. LDL 63 and A1c 6.8 this admission. Lyme screen negative. Neuro evaled, Pt back on her home eliquis Patient reports improvement in her LUE involuntary movements, denies any new neurological signs or symptoms. Pt w/ confusion yesterday evening likely 2/2 migraine cocktail; CT Head stable; pt mentation back to baseline. Fall precaution, PT/OT. to rehab today. Speech evaluated, appreciate recs. Hypomagnesemia: Monitor and replete. Pulmonary Edema At admission: VBG normal, procalcitonin negative. Possible component of heart failure in setting of DCCV, monitor for symptoms. Passed dysphagia screen per speech. ECHO reviewed. is hemodynamically stable and has been on room air. Atrial fibrillation, persistent Status post DCCV, now in sinus rhythm Continue amiodarone, metoprolol and Eliquis. Rash to L side of thorax: Bruise from fall. Continue with as needed anti-itch cream and Benadryl. Other chronic medical conditions: T2DM: Last A1c in 2021 was 6.6, SSI LILI: CPAP at bedtime COPD: No acute exacerbation. Continue home inhalers DVT prophylaxis: Eliquis for A-fib Full code PCP: DONNA Winchester Patient being discharged to [facility] with following instruction at the point of discharge: Follow-up with the primary care physician within a week time and likely you will need labs CBC/CMP/magnesium/phosphorus. Follow-up with neurology in 4 to 6 weeks time. For your chronic headache, you can use OTC tylenol for mild pain; you will be prescribed few days worth of percocet for moderate to severe pain; if your headache doesn't improve in next few days or worsens, you might benefit from neurology eval given recent stroke. Take your medications as prior. Home Health Attestation I certify that this patient is under my care and that I, or a physicians preschool assistant director working with me, had a face to-face encounter that meets the home health [id number] encounter requirements with this patient. The encounter with the patient was in whole, or in part, for the following medical condition, which is the primary reason for home health care (list medical condition): I certify that, based on my findings, the following services are medically necessary home health services: My clinical findings support the need for the above services because: Further, I certify that my clinical findings support that this patient is homebound (i.e. absences from home require considerable and taxing effort and are for medical reasons or [employer]aker services or infrequently or of short duration when for other reasons) because: Certification for Home Health Services: Based on the above findings, I certify that this patient is confined to the home and needs intermittent assisted care, physical therapy and/or speech therapy or continues to need occupational therapy. The patient is under my care, and I have initiated the establishment of the plan of care. This patient will be followed by a physician who will periodically review the plan of care. Total Time Total Time Spent Total Time Spent (In Minutes): 55 Discharge Plan Discharge Items Patient Disposition: Transfer Inpatient Rehab Fac Reason For Visit: STROKE LIKE SX Discharge Diagnosis: Acute right MCA stroke CVA likely due to recent cardioversion for persistent A-fib Persistent A-fib, history of Fall Activity: As commented below Activity Comment: continue with physical therapy Non-emergency contact: Primary Care Provider Call non-emergency contact if: you have any medication questions, your symptoms worsen and your temperature is above 101 Follow-up/Referrals: Garret Perry MD [Primary Care Provider] - Diet: Carb Consistent or DM2 and Heart Healthy Addtl Attending Provider Instructions: Follow-up with the primary care physician within a week time and likely you will need labs CBC/CMP/magnesium/phosphorus. Follow-up with neurology in 4 to 6 weeks time. For your chronic headache, you can use OTC tylenol for mild pain; you will be prescribed few days worth of percocet for moderate to severe pain; if your headache doesn't improve in next few days or worsens, you might benefit from neurology eval given recent stroke. Take your medications as prior. Pending Studies at Discharge: No Stand-Alone Forms: My [facility] Skilled Items Patient informed of condition?: Yes DNR: No Discharge Level of Care: Acute rehab Communicable Disease: No Discharge Prognosis: Stable Lines: None Urinary Catheter: No Medications and DC Order Prescriptions: New oxycodone-acetaminophen [Percocet] 5-325 mg tablet 1 tab PO Q8H PRN (Reason: pain (scale score 7-10)) 3 Days Qty: 9 0RF Continued multivitamin Tablet 1 tab PO QAM atorvastatin 40 mg Tablet 40 mg PO HS ascorbic acid (vitamin C) [Vitamin C] 1,000 mg Tablet 500 mg PO QAM cholecalciferol (vitamin D3) [Vitamin D3] 400 unit Tablet 400 unit PO QAM omega 3-lza-yee-fish oil [Fish Oil] 1,000 mg (120 mg-180 mg) Capsule 1 cap PO .Q3DAYS Eliquis 5 mg Tablet 5 mg PO BID bupropion HCl 300 mg tablet extended release 24 hr 300 mg PO QAM losartan [Cozaar] 50 mg Tablet 50 mg PO QAM metformin 500 mg Tablet 500 mg PO BID acetaminophen 325 mg Tablet 650 mg PO QID PRN (Reason: Pain) cetirizine 10 mg Tablet 10 mg PO HS ciclopirox 8 % Solution 1 applic TOPICAL HS calcium carbonate 600 mg calcium (1,500 mg) Tablet 600 mg PO QAM montelukast [Singulair] 10 mg Tablet 10 mg PO HS mupirocin 2 % Ointment 1 applic TOPICAL BID PRN (Reason: nasal dryness) epinephrine 0.3 mg/0.3 mL Auto-Injector 0.3 mg IM Q4H PRN (Reason: Allergic Reaction) diclofenac sodium 1 % Gel 2 g TOPICAL QID PRN (Reason: Pain) Nucala 100 mg/mL Auto-Injector 100 mg subcut .[id number] Trulicity 3 mg/0.5 mL Pen Injector 3 mg subcut WK Patient Comments: takes on fridays Rx Instructions: SATURDAYS. 3 mg subcutaneously once weekly Trelegy Ellipta 200-62.5-25 mcg Blister With Device 1 inh INHALATION QAM levalbuterol HCl [Xopenex] 1.25 mg/3 mL Solution For Nebulization 1.25 mg INHALATION DIRECTED PRN (Reason: Shortness Of Breath Or Wheezing) albuterol sulfate 2.5 mg /3 mL (0.083 %) Solution For Nebulization 2.5 mg INHALATION DIRECTED PRN (Reason: shortness of breath) albuterol sulfate 90 mcg/actuation Hfa Aerosol Inhaler 2 puff INHALATION Q4 PRN (Reason: Shortness Of Breath Or Wheezing) metoprolol succinate 50 mg Tablet Extended Release 24 Hr 100 mg PO BID amiodarone 200 mg Tablet 200 mg PO BID Discharge Orders: Discharge Order (Routine); Ordered 08/20/22 Ordered By: Lizeth Quinonez Admission Data Admit Date/Time: 08/16/22 10:51 Attending Provider: Lizeth Quinonez Admit Provider: Jessica Adler Primary Care Provider: Garret Perry Other Providers: [facility] ; Jessica Adler ; Rodo Romero
[2022-08-20] MEDS: ACETAMINOPHEN 325 MG TAB PO PRN (16:49)
== END 2022-08-20 19:07 | DRG 91 ==
LOC: ED 12:26 → EDINP 12:26 → SUATTDRO 15:26 → 2S 17:49 → 2N 08-19 12:40

== ENCOUNTER 2023-01-23 19:31 | Inpatient (IN) ==
--- OUTSIDE RECORDS SUMMARY | 2023-01-23 19:36 | External Medical Summary | Summary of Care ---
Author Name Unknown Organization [facility] Address [address] [place] [address] Phone [phone] Care Team Providers Care Product Development Technician Name Role Phone Luz Morales DONNA Primary Care Provider Reason for Visit * Reason Onset Date Comments Appointment 12/27/2022 Encounter Details Date Type Department Care Team (Late st Contact Info) Description 12/27/2022 Telephone Radiology [address] [place] [address] Marci Julian TECH Appointment Allergies Active Allergy Reactions Criticality Noted Date Comments Erythromycin Rash 12/14/1999 Ibuprofen Rash 08/05/2011 Latex Rash 03/20/2007 Latex High 07/24/2022 Other reaction(s): RASH Sulfa Antibiotics Rash 12/14/1999 documented as of this encounter (statuses as of 12/27/2022) Medications Medication Sig Dispensed Refills Start Date End Date Status VITAMIN C 500 MG PO TABS Take 1 Tablet by mouth in the morning. 0 Active MULTIVITAMINS PO TABS one tab by mouth daily 0 Active FISH OIL 500 MG PO CAPS Take 2 Capsules by mouth. Every 3 days. 0 Active Vitamin D, Cholecalciferol, 400 UNITS CAPS Take by mouth daily. 0 Active cetirizine (ZYRTEC) 10 MG Tablet Take 1 Tab by mouth daily. 30 Tab 3 01/30/2018 Active Additional Information Patient taking differently:10 mg OralDAILY PRN, Other, allergy symptoms, Indications: allergies, Informant: At Discharge, Reported on 08/30/2022 EPINEPHrine, anaphylaxis, (EPI-PEN) 0.3 MG/0.3ML SOAJ injection For a severe reaction: Inject in outer thigh following instructions on package and go to the Emergency room. 1 Box Dosing Unit 3 03/23/2018 Active Nebulizers (NEBULIZER COMPRESSOR) MISCIndications:CO PD, mild (HCC),MCCARTNEY (dyspnea on exertion),Severe persistent asthma, unspecified whether complicated Inhale via nebulizer. With tubing please. Use as directed. Lifetime need. 1 Each 1 05/13/2018 Active levalbuterol (XOPENEX) 1.25 MG/3ML nebulizer solution Inhale 3 mL via nebulizer every 8 hours as needed for Wheezing. 3 mL 11 07/19/2019 Active Calcium Carbonate 600 MG Oral Tablet Take 1 Tablet by mouth in the morning. 0 Active CPAP every night at bedtime. Auto pap 5-20 cm at bedtime 0 Active Diclofenac Sodium 1 % External Gel (Voltaren) Apply topically to affected area daily. Apply to HANDS DAILY 350 g 1 02/08/2021 Active Additional Information Patient taking differently:TopicalDAILY PRN, Pain, Apply to HANDS DAILY, Informant: At Discharge, Reported on 08/30/2022 Mupirocin 2 % External Ointment (Bactroban) Apply to the nose twice daily 22 g 4 02/13/2021 Active Mepolizumab 100 MG/ML Subcutaneous Solution Auto-injectorIndic ations:Severe persistent asthma without complication,Aller gic eosinophilia INJECT 1 ML UNDER THE SKIN EVERY 4 WEEKS 1 mL 11 04/22/2022 4 Active Additional Information Patient taking differently: Indications: allergies, Reported on 07/19/2022 Metoprolol Succinate ER 100 MG Oral Tablet Extended Release 24 Hour (toPROL XL) One tablet by mouth 2 times per day 180 Tablet 3 08/01/2022 Active oxyCODONE-Acetamin ophen 5-325 MG Oral Tablet Take 1 Tablet by mouth every 8 hours as needed for Other (headache). On backorder at pharmacy, has not started taking yet. 08/30/22. 0 Active Fluocinolone Acetonide Scalp 0.01 % External Oil Apply to scalp once weekly over night as directed 118.28 mL 0 08/30/2022 Active Ciclopirox 8 % External Solution APPLY OVER NAIL AND SURROUNDING SKIN, APPLY DAILY OVER PREVIOUS COAT. AFTER 7 DAYS, MAY REMOVE WITH ALCOHOL AND CONTINUE CYCLE. 19.8 mL 1 08/01/2022 4 Active Apixaban 5 MG Oral Tablet (Eliquis)Indicatio ns:Persistent atrial fibrillation (HCC) TAKE ONE TABLET BY MOUTH IN THE MORNING AND ONE TABLET BEFORE BEDTIME 180 Tablet 3 07/08/2022 4 Active Losartan Potassium 50 MG Oral Tablet (Cozaar)Indication s:HTN, goal below 140/90,Persistent atrial fibrillation (HCC) TAKE ONE TABLET BY MOUTH EVERY MORNING 90 Tablet 3 07/01/2022 4 Active Additional Information Patient taking differently: Indications: BP, Reported on 07/19/2022 Montelukast Sodium 10 MG Oral Tablet (Singulair) TAKE ONE TABLET BY MOUTH IN THE MORNING 90 Tablet 3 05/16/2022 4 Active Additional Information Patient taking differently:10 mg OralHS, Indications: allergies, Informant: At Discharge, Reported on 08/30/2022 metFORMIN HCl 500 MG Oral Tablet (Glucophage) TAKE ONE TABLET BY MOUTH TWICE A DAY WITH MORNING AND EVENING MEALS 180 Tablet 2 05/04/2022 4 Active Additional Information Patient taking differently:500 mg Oral BID (AM/PM MEALS),Indications: diabetes, Reported on 07/19/2022 Atorvastatin Calcium 40 MG Oral Tablet (Lipitor)Indicatio ns:Dyslipidemia, goal LDL below 100 TAKE ONE TABLET BY MOUTH EVERY MORNING 100 Tablet 3 05/03/2022 4 Active Additional Information Patient taking differently:40 mg OralHS, Informant: At Discharge, Reported on 08/30/2022 Gabapentin 100 MG Oral Capsule (Neurontin)Indicat ions:Migraine without aura and without status migrainosus, not intractable,Acute ischemic right MCA stroke (HCC),Memory loss Take 1 Capsule by mouth in the morning and 1 Capsule in the evening. 60 Capsule 1 09/13/2022 Active Clobetasol Propionate 0.05 % External SolutionIndication s:Atopic dermatitis of scalp Apply topically to affected area 2 times a day. To use to scalp for up to two weeks. 50 mL 1 10/07/2022 Active Albuterol Sulfate HFA 108 (90 Base) MCG/ACT Inhalation Aerosol Solution Inhale 2 Puffs by mouth every 4 hours as needed for Shortness of Breath or Wheezing. 18 g 5 10/17/2022 Active Trelegy Ellipta 200-62.5-25 MCG/ACT Aerosol Powder Breath Activated (Fluticasone-Umecl idinium-Vilanterol ) Inhale 1 Puff by mouth in the morning. 90 Blister Dosing Unit 3 11/01/2022 Active Amiodarone HCl 200 MG Oral Tablet (Cordarone)Indicat ions:Persistent atrial fibrillation (HCC) TAKE 1 TABLET BY MOUTH IN THE MORNING AND BEFORE BEDTIME 60 Tablet 2 11/06/2022 Active buPROPion HCl ER (XL) 300 MG Oral Tablet Extended Release 24 Hour (Wellbutrin XL) TAKE ONE TABLET BY MOUTH EVERY DAY IN THE MORNING 90 Tablet 1 11/27/2022 Active Mounjaro 5 MG/0.5ML Subcutaneous Solution Pen-injector (Tirzepatide) Inject 5 mg under the skin once a week. 6 mL 3 12/02/2022 4 Active Nortriptyline HCl 25 MG Oral Capsule (Pamelor) Take 1 Capsule by mouth at bedtime. 30 Capsule 1 12/24/2022 Active documented as of this encounter (statuses as of 12/27/2022) Active Problems Problem Noted Date Diagnosed Date Cerebrovascular accident (CV A) due to embolism of right middle cerebral artery 11/01/2022 Need for prophylactic vaccin ation and inoculation against influenza 11/01/2022 Atherosclerosis of [place] co ronary artery without angina pectoris 11/01/2022 Migraine without aura and wi thout status migrainosus, not intractable 11/01/2022 COPD, group B, by GOLD 2017 classification 09/09 Overview: Per COPD GOLD Classification Dyslipidemia 08/28/2022 Depression with anxiety 08/28/2022 Type 2 diabetes mellitus wit h hemoglobin A1c goal of less than 8.0% 08/09/2020 Asthma-COPD overlap syndrome 08/10/2018 Overview: Per COPD GOLD Classification Non-ischemic cardiomyopathy 07/02/2018 Morbid obesity 07/02/2018 LILI (obstructive sleep apnea) 01/29/2018 Persistent atrial fibrillation 08/13/2017 MEDICATION USE AGREEMENT 03/28/2017 Mitral regurgitation 06/13/2015 documented as of this encounter (statuses as of 12/27/2022) Resolved Problems Problem Noted Date Diagnosed Date Resolved Date History of right MCA stroke 08/28/2022 11/01/2022 Onychomycosis 08/01/2022 08/28/2022 Hypertensive heart disease w ithout congestive heart failure 02/01/2022 08/28/2022 Overview: HTN +Concentric L ventricular hypertrophy AN (generalized anxiety disorder) 06/28/2020 08/28/2022 Screening for diabetes mellitus 06/28/2020 08/09/2020 HTN (hypertension) 03/26/2019 3 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 or storm 03/26/2019 08/28/2022 Severe persistent asthma without complication 09/29/19 19 08/28/2022 Current mild episode of avani r depressive disorder without prior episode 07/02/2018 3 Severe persistent asthma with exacerbation 03/23/2018 04/19/2020 Concentric left ventricular hypertrophy 01/30/2018 08/28/2022 Centrilobular emphysema 01/30/2018 02/0 04/2021 Incidental pulmonary nodule, > 3mm and < 8mm 8 08/28/2022 COPD, mild 10/28/2017 08/12/2018 Overview: Per COPD GOLD Classification Pulmonary nodule less than 6 cm determined by computed tomography of lung 07/29/2017 11/02/2017 Body mass index (BMI) of 40. 0 to 44.9 in adult 12/02/2016 10/28/2017 Overview: Per Obesity protocol #1 Dyslipidemia, goal LDL below 100 08/16/2015 08/28/2022 Abnormal EKG 06/13/2015 08/28/2022 Hollenhorst plaque 06/13/2015 3 MCCARTNEY (dyspnea on exertion) 06/13/2015 Former tobacco use 06/13/2015 3 Abdominal bruit 06/13/2015 08/28/2022 Asthma with severity to be determined 08/24/2009 09/06/2013 Overview: Per Asthma Taxonomy ICD-10 update of inactive term Tobacco use disorder 01/01/2009 016 Osteoarthritis of hand 03/30/200708/28 ADVANCE DIRECTIVE INFORMATION 04/18/2005 08/28/2022 Overview: No, Advance Directive brochure given to patient. EXTRINSIC ASTHMA, UNSPEC 05/12/2003 ATTN DEFIC NONHYPERACT 01/20/200308/28 ACUTE OR UNSPEC. HEPATITIS C W/O MENTION OF HEPATIC COMA 03/06/2000 08/28/2022 Overview: Follow with Dr. Zabala Was told she was in remission CLASSICAL MIGRAINE WITHOU ME NTION OF INTRACTABLE MIGRAINE 03/06/2000 08/28/2022 Major depressive disorder Overview: ICD-10 update of inactive term documented as of this encounter (statuses as of 12/27/2022) Immunizations Name Administration Dates Next Due COVID-19 mRNA, LNP-s, No Pre serve, 2-Dose Series ([employer]) 12/13/2020,05/30/2020,05/02/2020 COVID-19, LNP-s, No Preserve , Keith-sucrose, Ages 12+ (Pfizer) 07/04/2021 Pneumococcal Conjugate Vacci ne, 20-valent ([id number]) 02/13/2022 Pneumococcal Polysaccharide PPV23 (Pneumovax) 02/05/2020 SEASONAL INFLUENZA, PF, 6 M & Above, IM , (FLULAVAL or FLUZONE) 12/21/2018,01/15/2018,01/08/2017 Season Influenza, Quad, PF, Adjuvanted, 65+ Yrs, IM (FLUAD) 12/20/2019 Seasonal Influenza Virus Vac cine, Unspecified Formulation 01/01/2018 Seasonal Influenza, Quadriva lent Hd (Fluzone Hd) 11/01/2022,01/12/2021 Seasonal Influenza, Quadriva lent, No Preserve, IM 01/03/2016 Seasonal Influenza, Quadriva lent, No Preserve, Mdck 12/17/2017 Seasonal Influenza, Split, I IV3, With Preserve, Inj 01/26/2014,01/07/2013,01/01/2012,02/11,12/10/2007,01/02/2007 TD - Tetanus/Diptheria (ADULT) 08/01/2009 TDAP (age 10 and older)(Boostrix) 06/06/2015 Zoster Vaccine Recombinant (Shingrix) 08/27/2019 ,03/31/2019 documented as of this encounter Social History Tobacco Use Types Packs/Day Years Used Date Smoking Tobacco: Former Cigarettes 0.5 40 Q uit: 01/26/2015 Smokeless Tobacco: Never Alcohol Use Standard Drinks/Week Comments Yes 0 (1 standard drink = 0.6 oz pur e alcohol) rarely PHQ-2 Answer Date Recorded PHQ Adult Total Score 1 08/14/2021 Hunger Vital Sign Answer Date Recorded Within the past 12 months, y ou worried that your food would run out before you got the money to buy more. Never true 07/18/19 Within the past 12 months, t he food you bought just didn't last and you didn't have money to get more. Never true 07/17/2022 Sex and Gender Information Value Date Recorded Sex Assigned at Female 07/02/2018 1:16 PM EDT Gender Identity Female 07/02/2018 1:16 PM EDT Sexual Orientation Bisexual 07/02/2018 1: 16 PM EDT Job Start Date Occupation Industry Not on file Not on file Not on file documented as of this encounter Functional Status Functional Status Response Date of Assess ment Are you deaf or do you have serious difficulty h earing? No 06/24/2022 Are you blind or do you have serious difficulty seeing, even when wearing glasses? No 06/24/2022 Do you have serious difficul ty walking or climbing stairs? (5 years old or older) No 06/24/2022 Do you have difficulty dress ing or bathing? (5 years old or older) No 06/24/2022 Because of a physical, menta l, or emotional condition, do you have difficulty doing errands alone such as visiting a doctor s office or shopping? (15 years old or older) No 06/25/19 Cognitive Status Response Date of Assessm ent Because of a physical, menta l, or emotional condition, do you have serious difficulty concentrating, remembering, or making decisions? (5 years old or older No 06/24/2022 documented as of this encounter Plan of Treatment Upcoming Encounters Date Type Department Care Team (Late st Contact Info) Description 01/02/2023 3:45 PM EDT Imaging Radiology [facility] [address] [address] 01/31/2023 12:40 PM EST Office Visit Family Practice [facility] [address] [place] [address] Luz Morales CRNP [address] [place] [address] 04/16/2023 8:30 AM EST Therapy Neuropsychology [facility] [address] [facility] [place] [address] Garret Ugalde, PhD [address] [facility] [place] [address] 05/28/2023 9:00 AM EDT Imaging Radiology [facility] [address] [place] [address] 06/13/2023 1:40 PM EDT Office Visit Neurology [facility] [address] [facility] [place] [address] Harsha Wright, DO [address] [facility] [place] [address] 06/17/2023 1:00 PM EDT Office Visit Sleep Disorders Ctr [facility] [address] [place] [phone] Ariana Beltran, [address] [place] [address] Scheduled Procedures Name Priority Associated Diagnoses Date/Ti me COLONOSCOPY FLEXIBLE PROXIMA L DIAGNOSTIC Recall History of colonic polyps Health Maintenance Due Date Last Done Comments Alpha-1 Antitrypsin 1972 Hepatitis B (1 of 3 - Risk 3-dose series) 2014 DIABETES-EYE EXAM 06/26/2016 06/27/2015, , 05/30/2015 Depression Screening 08/14/2022 08/14/2021 Mammogram 08/14/2022 08/14/2021, 11/2020, 06/10/2018, Additional history exists Diabetic Foot Exam 02/13/2023 02/13/2022, 05/09/2021 HbA1c 03/16/2023 09/13/2022, 05/2021, 07/04/2021, Additional history exists O2 ASSESSMENT COMPLETED IN PAST YEAR FOR COPD 06/25/2023 06/24/2022 DXA Scan 08/28/2023 08/27/2016 GFR 09/14/2023 09/13/2022, 08/02, 06/24/2022, Additional history exists Albumin/Creatinine Ratio 09/18/2023 023, 05/09/2021, 06/28/2020 COLONOSCOPY-EVERY 5 YRS AGES 18-100 03/30/2024 03/30/2019, 03/30/2019, 03/20/2007 DTaP,Tdap,and Td Vaccines (2 - Td or Tdap) 06/05/2025 06/06/2015, 08/01/2009 MENINGOCOCCAL (MENACTRA/MENVEO) Aged Out 03/20/2004 No longer eligible based on patient's age to complete this topic Zoster Vaccines Completed 08/27/2019, 03/31/2019 Pneumococcal Vaccine: 65+ Years Completed 02/13/2022, 02/05/2020, 01/17/2005 LUNG CANCER SCREENING - USE SMARTSET 30377 Completed 07/19/2022, 07/06/2021, 04/11/2020, Additional history exists Influenza Vaccine (FLU shot) Completed 03/2022, 01/11/2022, 01/12/2021, Additional history exists COVID-19 Vaccine Completed 12/24/2022, 11/2021, 07/04/2021, Additional history exists GARDASIL-HPV IMMUNIZATION SERIES Aged Out No longer eligible based on patient's age to complete this topic documented as of this encounter Medical Devices Implanted Type Area Lapidarist Device Identifier Shelf Expiration Date Model / Serial / Lot Wire Jairo - [id number] Implanted:Qty: 1 on 06/24/2022 by Natalie Sheffield IV, MD at [facility] [employer] : PERIPHL IV [id number] 12/13/2023 [id number] documented as of this encounter Advance Directives Latest Code Status on File Code Status Date Activated Date Inactivated Comments Full Code 06/24/2022 3:47 PM 06/25/2022 4:19 PM This order reflects the patients wishes and were consensually agreed upon. Question Answer Comments Discussion of Advance Directives occurred with: Patient Code Status History Code Status Date Activated Date Inactivated Comments Full Code 03/10/2018 1:36 PM 03/11/2018 7:22 PM This or carter reflects the patients wishes and were consensually agreed upon. Question Answer Comments Discussion of Advance Directives occurred with: Patient Does the patient have a Living Will? No Does the patient have Health Care Power of Final Inspection Supervisor? No Healthcare Agents on File Name Relationship Healthcare Agent [facility] p Communication Enid Patel Adult Child Health Care Repr esentative (appointed verbally by patient or by statute hierarchy) Care Teams Product Development Technician Relationship Specialty Start Date End Date Luz Morales CRNP [address] [place] [address] PCP - General Nurse Practitioner 09/27/20 documented as of this encounter
--- OUTSIDE RECORDS SUMMARY | 2023-01-23 19:36 | External Medical Summary | Summary of Care ---
Author Name Unknown Organization [facility] Address [address] [place] [address] Phone [phone] Care Team Providers Care Presentation Manager Name Role Phone Carmen Luz THOMPSON Primary Care Provider Reason for Visit * Reason Comments Dosage Adjustment Via Phone (anticoag Cl inic) Encounter Details Date Type Department Care Team (Late st Contact Info) Description 01/09/2023 11:00 AM EST Telemedicine Pulmonary Medicine, [facility] [address] [place] [address] [place], Pharmacist Pulmonary [address] [place] [address] Encounter for long-term (current) use of medications*; Severe persistent asthma without complication Allergies Active Allergy Reactions Criticality Noted Date Comments Erythromycin Rash 12/14/1999 Ibuprofen Rash 08/05/2011 Latex Rash 03/20/2007 Latex High 07/24/2022 Other reaction(s): RASH Sulfa Antibiotics Rash 12/14/1999 documented as of this encounter (statuses as of 01/09/2023) Medications Medication Sig Dispensed Refills Start Date [...] Unit 3 03/23/2018 Active Nebulizers (NEBULIZER COMPRESSOR) MISCIndications:C OPD, mild (HCC),MCCARTNEY (dyspnea on exertion),Severe persistent asthma, [...] twice daily 22 g 4 02/13/2021 Active Metoprolol Succinate ER 100 MG Oral Tablet Extended Release 24 Hour (toPROL XL) One tablet by mouth 2 times per day 180 Tablet 3 08/01/2022 Active oxyCODONE-Acetami nophen 5-325 MG Oral Tablet Take 1 Tablet [...] 4 Active Apixaban 5 MG Oral Tablet (Eliquis)Indicati ons:Persistent atrial fibrillation (HCC) TAKE ONE TABLET BY MOUTH IN THE MORNING AND ONE TABLET BEFORE BEDTIME 180 Tablet 3 07/08/2022 4 Active Losartan Potassium 50 MG Oral Tablet (Cozaar)Indicatio ns:HTN, goal below 140/90,Persistent atrial fibrillation (HCC) TAKE [...] 07/19/2022 Atorvastatin Calcium 40 MG Oral Tablet (Lipitor)Indicati ons:Dyslipidemia, goal LDL below 100 TAKE ONE TABLET BY MOUTH EVERY MORNING 100 Tablet 3 05/03/2022 4 Active Additional Information Patient taking differently:40 mg OralHS, Informant: At Discharge, Reported on 08/30/2022 Gabapentin 100 MG Oral Capsule (Neurontin)Indica tions:Migraine without aura and without status migrainosus, not intractable,Acute ischemic right MCA stroke (HCC),Memory loss Take 1 Capsule by mouth in the morning and 1 Capsule in the evening. 60 Capsule 1 09/13/2022 Active Clobetasol Propionate 0.05 % External SolutionIndicatio ns:Atopic dermatitis of scalp Apply topically to affected [...] Ellipta 200-62.5-25 MCG/ACT Aerosol Powder Breath Activated (Fluticasone-Umec lidinium-Vilanter ol) Inhale 1 Puff by mouth in the morning. 90 Blister Dosing Unit 3 11/01/2022 Active Amiodarone HCl 200 MG Oral Tablet (Cordarone)Indica tions:Persistent atrial fibrillation (HCC) TAKE 1 TABLET BY [...] at bedtime. 30 Capsule 1 12/24/2022 Active Mepolizumab 100 MG/ML Subcutaneous Solution Auto-injectorIndi cations:Severe persistent asthma without complication Inject 1 mL under the skin every 4 weeks. 1 mL 4 01/09/2023 Active Mepolizumab 100 MG/ML Subcutaneous Solution Auto-injectorIndi cations:Severe persistent asthma without complication,Kobe rgic eosinophilia INJECT 1 ML UNDER THE SKIN EVERY 4 WEEKS 1 mL 11 04/22/2022 3 Discontinu ed(Refill) documented as of this encounter (statuses as of 01/09/2023) Active Problems Problem Noted Date Diagnosed Date Cerebrovascular accident (CV A) due to embolism of right middle cerebral artery 11/01/2022 Need for prophylactic vaccin ation and inoculation against influenza 11/01/2022 Atherosclerosis of [place] co ronary artery without angina pectoris 11/01/2022 [...] as of this encounter (statuses as of 01/09/2023) Resolved Problems Problem Noted Date Diagnosed Date [...] as of this encounter (statuses as of 01/09/2023) Immunizations Name Administration Dates Next Due COVID-19 mRNA, LNP-s, No Pre serve, 2-Dose Series ([facility]) 12/13/2020,05/30/2020,05/02/2020 COVID-19, LNP-s, No Preserve , Keith-sucrose, Ages 12+ (Pfizer) 07/04/2021 Pneumococcal Conjugate Vacci ne, 20-valent ([id number]) 02/13/2022 Pneumococcal Polysaccharide PPV23 (Pneumovax) 02/05/2020 SEASONAL [...] money to buy more. Never true 07/18/19 23 Within the past 12 months, t he [...] (15 years old or older) No 06/25/19 23 Cognitive Status Response Date of Assessm ent Because of a physical, menta l, or emotional condition, do you have serious difficulty concentrating, remembering, or making decisions? (5 years old or older No 06/24/2022 documented as of this encounter Plan of Treatment Upcoming Encounters Date Type Department Care Team (Late st Contact Info) Description 01/31/2023 12:40 PM EST Office Visit Family Practice [facility] [address] [address] Luz Morales CRNP [address] [place] [address] 04/16/2023 8:30 AM EST Therapy Neuropsychology [facility] [address] [facility] [address] [place] [address] Garret Ugalde, PhD [address] [facility] [place] [address] 05/28/2023 9:00 AM EDT Imaging Radiology [facility] [address] [address] 06/13/2023 1:40 PM EDT Office Visit Neurology [facility] [address] [facility] [address] [place] [address] Harsha Wright, DO [address] [facility] [place] [address] 06/17/2023 1:00 PM EDT Office Visit Sleep Disorders Ctr [facility] [address] [phone] Ariana Beltran, DO [address] [place] [address] Scheduled Procedures Name Priority Associated Diagnoses Date/Ti me COLONOSCOPY FLEXIBLE PROXIMA L DIAGNOSTIC Recall History of colonic polyps Health Maintenance Due Date Last Done Comments Alpha-1 Antitrypsin 1972 Hepatitis B (1 of 3 - Risk 3-dose series) 2014 Diabetic Eye Exam 06/26/2016 06/27/2015, , 05/30/2015 Depression Screening 08/14/2022 [...] 01/17/2005 LUNG CANCER SCREENING - USE SMARTSET 14077 Completed 07/19/2022, 07/06/2021, 04/11/2020, Additional history exists Influenza Vaccine (FLU shot) Completed 03/2022, 01/11/2022, 01/12/2021, Additional history exists COVID-19 Vaccine Completed 12/24/2022, 11/2021, 07/04/2021, Additional history exists GARDASIL-HPV IMMUNIZATION SERIES Aged Out No longer eligible based on patient's age to complete this topic documented as of this encounter Medical Devices Implanted Type Area Security Threat Analyst Device Identifier Shelf Expiration Date Model / Serial / Lot Wire Jairo - [id number] Implanted:Qty: 1 on 06/24/2022 by Natalie Sheffield IV, MD at [facility] [employer] : PERIPHL IV [id number] 12/13/2023 [id number] documented as of this encounter Visit Diagnoses Diagnosis Encounter for long-term (current) use of medications- Primary Encounter for long-term (current) use of other medications Severe persistent asthma without complication documented in this encounter Advance Directives Latest Code Status [...] the patient have Health Care Power of Motorcycle Racer? No Healthcare Agents on File Name Relationship [facility] Enid Patel Adult Child Health Care Repr esentative (appointed verbally by patient or by statute hierarchy) Care Teams Presentation Manager Relationship Specialty Start Date End Date Luz Morales CRNP [address] [place] [address] PCP - General Nurse Practitioner 09/27/20 documented as of this encounter
--- OUTSIDE RECORDS SUMMARY | 2023-01-23 19:36 | External Medical Summary | Summary of Care ---
Author Name Unknown Organization [facility] Address [address] [place] [address] Phone [phone] Care Team Providers Care Senior Energy Analyst Name Role Phone Luz Morales Christel DONNA Primary Care Provider Reason for Referral * Evaluate & Treat - Unlimited Visits (Within 10 days (routine)) - Authorized Specialty Diagnoses / Procedures Referred By Steven perkins Referred To Contact Psychiatry / Psychology Diagnoses Acute ischemic right MCA stroke (HCC) Memory loss MCI (mild cognitive impairment) Harsha Wright DO [address] [place] [address] Referral ID Status Reason Start Date Expiration Date Visits Requested Visits Authorized [id number] Authorized Specialty Services Required 3 [phone] Question Answer Referral Priority Within 10 days (routine) Where should this appointment be scheduled? [facility] Is this referral for medication management? Yes What condition is this patient being seen for? Mild Cognitive Impairment/Mild Neurocognitive Disorder - ?pseudodementia Vs vascular cognitive impairment Comments Neuropsychological evaluations are INTERACTIVE and use materials that require a patient to SEE, HEAR, and often WRITE. If a patient is unable to engage in this way, neurocognitive assessment may be abbreviated or deemed inappropriate. Please use caution in establishing expectations with your patient, and note any limitations in the comments section of the referral order. * Precert (Within 10 days (routine)) - Pending Review Specialty Diagnoses / Procedures Referred By Contac t Referred To Contact Radiology Diagnoses Acute ischemic right MCA stroke (HCC) Memory loss MCI (mild cognitive impairment) Procedures MRI BRAIN WITHOUT CONTRAST Harsha Wright DO [address] [place] [address] Referral ID Status Reason Start Date Expiration Date V isits Requested Visits Authorized [id number] Pending Review 12/24/[phone] Reason for Visit * Reason Comments Return Neuro Encounter Details Date Type Department Care Team (Late st Contact Info) Description 12/24/2022 9:20 AM EDT [facility] Turcios [address] [place] [address] Harsha Wright DO [address] [facility] [place] [address] Migraine without aura and without status migrainosus, not intractable*; Acute ischemic right MCA stroke (HCC); Memory loss; MCI (mild cognitive impairment) Allergies Active Allergy Reactions Criticality Noted Date Comments Erythromycin Rash 12/14/1999 Ibuprofen Rash 08/05/2011 Latex Rash 03/20/2007 Latex High 07/24/2022 Other reaction(s): RASH Sulfa Antibiotics Rash 12/14/1999 documented as of this encounter (statuses as of 12/24/2022) Medications Medication Sig Dispensed Refills Start Date [...] as of this encounter (statuses as of 12/24/2022) Active Problems Problem Noted Date Diagnosed Date Cerebrovascular accident (CV A) due to embolism of right middle cerebral artery 11/01/2022 Need for prophylactic vaccin ation and inoculation against influenza 11/01/2022 Atherosclerosis of [place]onary artery without angina pectoris 11/01/2022 [...] as of this encounter (statuses as of 12/24/2022) Resolved Problems Problem Noted Date Diagnosed Date [...] as of this encounter (statuses as of 12/24/2022) Immunizations Name Administration Dates Next Due COVID-19 mRNA, LNP-s, No Pre serve, 2-Dose Series (Génie Numérique) 12/13/2020,05/30/2020,05/02/2020 COVID-19, LNP-s, No Preserve , Keith-sucrose, Ages 12+ (Pfizer) 07/04/2021 Pneumococcal Conjugate Vacci ne, 20-valent ([id number]) 02/13/2022 Pneumococcal Polysaccharide PPV23 (Pneumovax) 02/05/2020 SEASONAL [...] on file documented as of this encounter Last Filed Vital Signs Vital Sign Reading Time Taken Comments Blood Pressure 108/56 12/24/2022 9:15 AM EDT Pulse 32 12/24/2022 9:15 AM EDT Temperature 36.5 C (97.7 F) 12/24/2022 9:15 AM ED T Respiratory Rate 20 12/24/2022 9:15 AM EDT Oxygen Saturation 97% 12/24/2022 9:15 AM EDT Inhaled Oxygen Concentration - - Weight 106.1 kg (233 lb 12.8 oz) 12/24/2022 9:15 AM EDT Height - - Body Mass Index 38.02 11/01/2022 12:53 PM EDT documented in this encounter Functional Status Functional Status Response [...] No 06/24/2022 documented as of this encounter Progress Notes * Harsha Wright, DO - 12/24/2022 9:42 AM EDT [place] [address] NAME: Kimberly Hernandez Date of : 1955 Date of Visit: 12/24/22 Chief Complaint: Chief Complaint Patient presents with Return Neuro Subjective: A 67-year-old female with Hx atrial fibrillation on Eliquis, hypertension, type 2 diabetes, and HLD presenting to clinic for follow up for chronic right MCA ischemic stroke diagnosed on August 16, 2022 status post a cardioversion for persistent atrial fibrillation. She presents alone today. She is ambulating with cane due to balance problems. Since I last saw her in August she reports feeling depressed with worsening memory and cognitive problems. This is new since she had a stroke. 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 Patient reports compliance with Eliquis. She continues to have daily headaches with history of migraines. Gabapentin 100 mg BID did not help. HOME MEDICATIONS : Current Outpatient Medications Medication Sig Dispense Refill VITAMIN C 500 MG PO TABS Take 1 Tablet by mouth in the morning. MULTIVITAMINS PO TABS one tab by mouth daily FISH OIL 500 MG PO CAPS Take 2 Capsules by mouth. Every 3 days. Vitamin D, Cholecalciferol, 400 UNITS CAPS Take by mouth daily. cetirizine (ZYRTEC) 10 MG Tablet Take 1 Tab by mouth daily. (Patient taking differently: Take 1 Tablet by mouth daily as needed for Other (allergy symptoms).) 30 Tab 3 EPINEPHrine, anaphylaxis, (EPI-PEN) 0.3 MG/0.3ML SOAJ injection For a severe reaction: Inject in outer thigh following instructions on package and go to the Emergency room. 1 Box Dosing Unit 3 Nebulizers (NEBULIZER COMPRESSOR) [facility] Inhale via nebulizer. With tubing please. Use as directed. Lifetime need. 1 Each 1 levalbuterol (XOPENEX) 1.25 MG/3ML nebulizer solution Inhale 3 mL via nebulizer every 8 hours as needed for Wheezing. 3 mL 11 Calcium Carbonate 600 MG Oral Tablet Take 1 Tablet by mouth in the morning. CPAP every night at bedtime. Auto pap 5-20 cm at bedtime Diclofenac Sodium 1 % External Gel (Voltaren) Apply topically to affected area daily. Apply to HANDS DAILY (Patient taking differently: Apply topically to affected area daily as needed for Pain. Apply to HANDS DAILY) 350 g 1 Mupirocin 2 % External Ointment (Bactroban) Apply to the nose twice daily 22 g 4 Mepolizumab 100 MG/ML Subcutaneous Solution Auto-injector INJECT 1 ML UNDER THE SKIN EVERY 4 WEEKS (Patient taking differently: No sig reported) 1 mL 11 Metoprolol Succinate ER 100 MG Oral Tablet Extended Release 24 Hour (toPROL XL) One tablet by mouth2 times per day 180 Tablet 3 oxyCODONE-Acetaminophen 5-325 MG Oral Tablet Take 1 Tablet by mouth every 8 hours as needed for Other (headache). On backorder at pharmacy, has not started taking yet. 08/30/22. Fluocinolone Acetonide Scalp 0.01 % External Oil Apply to scalp once weekly over night as directed 118.28 mL 0 Ciclopirox 8 % External Solution APPLY OVER NAIL AND SURROUNDING SKIN, APPLY DAILY OVER PREVIOUS COAT. AFTER 7 DAYS, MAY REMOVE WITH ALCOHOL AND CONTINUE CYCLE. 19.8 mL 1 Apixaban 5 MG Oral Tablet (Eliquis) TAKE ONE TABLET BY MOUTH IN THE MORNING AND ONE TABLET BEFORE BEDTIME 180 Tablet 3 Losartan Potassium 50 MG Oral Tablet (Cozaar) TAKE ONE TABLET BY MOUTH EVERY MORNING (Patient taking differently: No sig reported) 90 Tablet 3 Montelukast Sodium 10 MG Oral Tablet (Singulair) TAKE ONE TABLET BY MOUTH IN THE MORNING (Patient taking differently: Take 1 Tablet by mouth at bedtime.) 90 Tablet 3 metFORMIN HCl 500 MG Oral Tablet (Glucophage) TAKE ONE TABLET BY MOUTH TWICE A DAY WITH MORNING ANDEVENING MEALS (Patient taking differently: Take 1 Tablet by mouth 2 times a day with morning and evening meals.) 180 Tablet 2 Atorvastatin Calcium 40 MG Oral Tablet (Lipitor) TAKE ONE TABLET BY MOUTH EVERY MORNING (Patient taking differently: Take 1 Tablet by mouth at bedtime.) 100 Tablet 3 Gabapentin 100 MG Oral Capsule (Neurontin) Take 1 Capsule by mouth in the morning and 1 Capsule in the evening. 60 Capsule 1 Clobetasol Propionate 0.05 % External Solution Apply topically to affected area 2 times a day. To use to scalp for up to two weeks. 50 mL 1 Albuterol Sulfate HFA 108 (90 Base) MCG/ACT Inhalation Aerosol Solution Inhale 2 Puffs by mouth every 4 hours as needed for Shortness of Breath or Wheezing. 18 g 5 Trelegy Ellipta 200-62.5-25 MCG/ACT Aerosol Powder Breath Activated (Ikpshfohiaa-Ucibznuzjqog-Jieqtgivph) Inhale 1 Puff by mouth in the morning. 90 Blister Dosing Unit 3 Amiodarone HCl 200 MG Oral Tablet (Cordarone) TAKE 1 TABLET BY MOUTH IN THE MORNING AND BEFORE BEDTIME 60 Tablet 2 buPROPion HCl ER (XL) 300 MG Oral Tablet Extended Release 24 Hour (Wellbutrin XL) TAKE ONE TABLET BY MOUTH EVERY DAY IN THE MORNING 90 Tablet 1 Mounjaro 5 MG/0.5ML Subcutaneous Solution Pen-injector (Tirzepatide) Inject 5 mg under the skin once a week. 6 mL 3 Nortriptyline HCl 25 MG Oral Capsule (Pamelor) Take 1 Capsule by mouth at bedtime. 30 Capsule 1 No current facility-administered medications for this visit. Review of patient's allergies indicates: Allergen Reactions Latex Other reaction(s): RASH Erythromycin Rash Ibuprofen Rash Latex Rash Sulfa Antibiotics Rash PHYSICAL EXAMINATION: Vital Signs: BP 108/56 (BP Site: Right Arm, BP Position: Sitting, BP Cuff Size: Regular) | Pulse 32 | Temp 36.5 C (97.7 F) (Tympanic) | Resp 20 | Wt 106.1 kg (233 lb 12.8 oz) | LMP 11/06/2006 | SpO2 97% | BMI38.02 kg/m | BSA 2.22 m EXAM: Constitutional: Appears stated age, no acute distress Head and Face: normocephalic and atraumatic Eyes: normal lids, normal conjunctiva Neck: supple Respiratory: normal effort Cardiovascular: normal pulses Abdomen: non distended Skin: no rashes, lesions, or ulcers noted Psychiatric: normal judgement and insight, normal mood and normal affect NEUROLOGIC EXAMINATION: Appearance: no acute distress Orientation: awake, alert and oriented x 3 Mental Status: alert Attention: normal Knowledge: appropriate Language: Following simple commands, she is able to repeat Speech: Mild dysarthria Cranial Nerves: CN 2 - no visual defect on confrontation and pupils round, equal, reactive to light CN 3, 4, 6 - extra-ocular movements intact and no nystagmus CN 5 - facial sensation intact CN 7 - no facial asymmetry CN 8 - intact hearing CN 9, 10 - palate symmetric CN 11 - good shoulder shrug CN 12 - tongue midline Gait: Wide-based unsteady gait ambulating with a cane Coordination: no ataxia with finger to nose testing Sensory: intact to light touch Muscle Tone: normal Muscle exam: No muscle weakness in the upper and lower extremities Reflexes: Negative Erin sign bilaterally LABORATORY: Labs reviewed and pertinent findings are indicated below: Component Latest Ref Rng 08/21/2022 09/13/2022 09/17/2022 BUN 6 - 20 mg/dL 25 (H) 20 Creatinine 0.5 - 1.0 mg/dL 0.9 1.2 (H) Estimated Glomerular Filtration Rate >=60 mL/min 72 50 (L) Sodium 135 - 146 mmol/L 138 142 Potassium 3.5 - 5.1 mmol/L 4.3 4.7 Chloride 98 - 107 mmol/L 103 104 CO2 22 - 32 mmol/L 23 22 Anion Gap 7 - 15 mmol/L 12 16 (H) Glucose 70 - 120 mg/dL 170 (H) 135 (H) Albumin 3.8 - 5.0 g/dL 4.5 AST 10 - 35 U/L 29 Alkaline Phosphatase 35 - 130 U/L 58 Bilirubin, Total <=1.2 mg/dL 0.6 Calcium 8.4 - 10.2 mg/dL 9.2 9.9 Protein 6.0 - 8.3 g/dL 6.8 ALT 10 - 35 U/L 29 WBC 4.00 - 10.80 K/uL 8.97 RBC 3.85 - 5.15 M/uL 3.87 HGB 12.0 - 15.3 g/dL 12.4 HCT 36.0 - 45.2 % 37.9 MCV 81.5 - 97.5 fL 97.9 MCH 27.0 - 34.0 pg 32.0 MCHC 32.0 - 36.0 g/dL 32.7 RDW 11.5 - 15.5 % 13.7 PLT 140 - 400 K/uL 217 MPV 6.6 - 11.1 fL 10.1 Albumin, Random Urine mg/dL <1.20 Creatinine, Random Urine mg/dL 99 Albumin / Creatinine Ratio, Urine <30 mg/g Creat <12 Hemoglobin A1C 4.0 - 5.6 % 6.7 (H) Estimated Average Glucose <126 mg/dL 146 (H) Vitamin B12 232 - 1,245 pg/mL 560 Folic Acid >4.5 ng/mL 13.3 Vitamin B1 (Thiamine),B 78 - 185 nmol/L 123 TSH 0.27 - 4.20 uIU/mL 1.81 Legend: (H) High (L) Low Review of prior Diagnostic Tests: Review of prior Radiology Studies: CT head noncontrast performed on 09/17/2022: The posterior fossa is partially obscured by streak artifact from dental restorations. There is a likely acute to subacute right MCA territory infarct in the right temporoparietal regionwithout prior imaging available for comparison. There is no evidence of hemorrhagic conversion. There is no evidence of an additional infarct or suspicious mass lesion. No extra-axial fluid collection or midline shift. The basal cisterns are patent. No acute calvarial abnormality. There is an incidental small osteoma arising from the frontal calvarium in the midline. A nasal septal dehiscence is evident. There is a tiny retention cyst along thefloor of the left maxillary sinus. The mastoid air cells are clear. IMPRESSION IMPRESSION: Acute to subacute right temporoparietal infarct without evidence of hemorrhagic conversion. IMPRESSION / PLAN: Kimberly was seen today for return neuro. Diagnoses and all orders for this visit: Migraine without aura and without status migrainosus, not intractable Acute ischemic right MCA stroke (HCC) - MRI BRAIN WITHOUT CONTRAST - ADULT/PEDS NEUROPSYCHOLOGY REFERRAL OP Memory loss - MRI BRAIN WITHOUT CONTRAST - ADULT/PEDS NEUROPSYCHOLOGY REFERRAL OP MCI (mild cognitive impairment) - MRI BRAIN WITHOUT CONTRAST - ADULT/PEDS NEUROPSYCHOLOGY REFERRAL OP Other orders - Nortriptyline HCl 25 MG Oral Capsule (Pamelor); Take 1 Capsule by mouth at bedtime. Kimberlee Hernandez is a pleasant 67-year-old female with past medical history of migraine headaches,atrial fibrillation on Eliquis, hypertension, type 2 diabetes, hyperlipidemia, and chronic right MCA ischemic stroke diagnosed on August 16, 2022 status post a cardioversion for persistent atrial fibrillation. MRI of the brain confirmed acute right embolic appearing MCA ischemic stroke. She remains on Eliquis for for secondary stroke prevention as well as Lipitor 40 mg daily. Since I last saw her and since her stroke in August she has continued to suffer from memory problems as well as cognitive problems. She also reports some feelings of depression. Recent CT head noncontrast showed subacute right MCA ischemic stroke without hemorrhagic conversion. Given the development of memory problems as well as ongoing cognitive difficulties she may be at risk for vascular dementia. Other differential diagnosis includes pseudodementia in the setting of depression. She is currently on Wellbutrin. Will obtain formal neuropsychiatric testing to establish a baseline. In regards to her ongoing daily headaches she would no response to low-dose gabapentin. She does have remote history of migraine headaches. She currently reports difficulty sleeping or insomnia. Will try adding low-dose Pamelor 25 mg nightly for headache prophylaxis. This may also help with insomnia as well as depression. I will arrange for follow-up in 6 months or sooner if needed. Harsha Wright DO documented in this encounter Nursing Notes * Karol Downs LPN - 12/24/2022 9:15 AM EDT Patient verified identity by spelling of last name and date. Chief Complaint Patient presents with Return Neuro documented in this encounter Plan of Treatment Upcoming Encounters Date Type Department Care Team (Late st Contact Info) Description 01/02/2023 3:45 PM EDT Imaging Radiology [facility] [address] [facility] [place] [address] 01/31/2023 12:40 PM EST Office Visit Family Practice [facility] [address] [facility] [place] [address] Luz Morales CRNP [address] [place] [address] 05/28/2023 9:00 AM EDT Imaging Radiology [facility] [address] [place] [address] 06/13/2023 1:40 PM EDT Office Visit Neurology [facility] [address] [place] [address] Harsha Wright, DO [address] [place] [address] 06/17/2023 1:00 PM EDT Office Visit Sleep Disorders Ctr [facility] [address] [place] [id number] Ariana Beltran, DO [address] [place] [address] Scheduled Orders Name Type Priority Associated Diagnoses Orde r Schedule MRI BRAIN WITHOUT CONTRAST Medical Imaging Routine Acute ischemic right MCA stroke (HCC) Memory loss MCI (mild cognitive impairment) Ordered: 12/24/2022 Scheduled Procedures Name Priority Associated Diagnoses Date/Ti me COLONOSCOPY FLEXIBLE PROXIMA L DIAGNOSTIC Recall History of colonic polyps Scheduled Referrals Name Type Priority Associated Diagnoses Order Schedule ADULT/PEDS NEUROPSYCHOLOGY REFERRAL OP Referral Within 10 days (routine) Acute ischemic right MCA stroke (HCC) Memory loss MCI (mild cognitive impairment) Ordered: 12/24/2022 Health Maintenance Due Date Last Done Comments Alpha-1 Antitrypsin 1972 Hepatitis B (1 of 3 - Risk 3-dose series) 2014 DIABETES-EYE EXAM 06/26/2016 06/27/2015, , 05/30/2015 Depression Screening 08/14/2022 08/14/2021 Mammogram 08/14/2022 08/14/2021, 06/0 11/2020, 06/10/2018, Additional history exists COVID-19 Vaccine ( season) 2022 11/09/2021, 07/04/2021, 12/13/2020, Additional history exists Diabetic Foot Exam 02/13/2023 02/13/2022, 05/09/2021 HbA1c 03/16/2023 09/13/2022, 10/0 05/2021, 07/04/2021, Additional history exists O2 ASSESSMENT [...] 01/17/2005 LUNG CANCER SCREENING - USE SMARTSET [id number] Completed 07/19/2022, 07/06/2021, 04/11/2020, Additional history exists Influenza Vaccine (FLU shot) Completed 03/2022, 01/11/2022, 01/12/2021, Additional history exists GARDASIL-HPV IMMUNIZATION SERIES Aged Out No longer eligible based on patient's age to complete this topic documented as of this encounter Medical Devices Implanted Type Area University Counselor Device Identifier Shelf Expiration Date Model / Serial / Lot Wire Mailman - [id number] Implanted:Qty: 1 on 06/24/2022 by Natalie Sheffield IV, MD at [facility] [place] [employer] : PERIPHL IV [id number] 12/13/2023 [id number] documented as of this encounter Visit Diagnoses Diagnosis Migraine without aura and without status migrainosus, not intractable- Primary Migraine without aura, without mention of intractable migraine without mention of status migrainosus Acute ischemic right MCA stroke (HCC) Unspecified cerebral artery occlusion with cerebral infarction Memory loss MCI (mild cognitive impairment) Mild cognitive impairment, so stated documented in this encounter Advance Directives Latest [...] the patient have Health Care Power of Managed Services Consultant? No Healthcare Agents on File Name Relationship Healthcare Agent Relationshi p Communication Enid Patel Adult Child Health Care Repr esentative (appointed verbally by patient or by statute hierarchy) Care Teams Senior Energy Analyst Relationship Specialty Start Date End Date Luz Morales CRNP [address] [place] [address] PCP - General Nurse Practitioner 09/27/20 documented as of this encounter"
--- OUTSIDE RECORDS SUMMARY | 2023-01-23 19:37 | External Medical Summary | Summary of Care ---
Author Name Unknown Organization [facility] Address [address] [place] [address] Phone [phone] Care Team Providers Care Pet Stylist Name Role Phone CashLuz floyd Christel THOMPSON Primary Care Provider Reason for Visit * Reason Comments Follow Up Follow up after ultr asound - fatty liver Encounter Details Date Type Department Care Team Description 11/27/2022 Office Visit Gastroenterology, [facility] [address] [place] [id number] Yumiko Gonzalez CRNP [address] [place] [id number] Fatty liver* Allergies Active Allergy Reactions Severity Noted Date Comments Erythromycin Rash 12/14/1999 Ibuprofen Rash 08/05/2011 Latex Rash 03/20/2007 Latex High 07/24/2022 Other reaction(s): RASH Sulfa Antibiotics Rash 12/14/1999 documented as of this encounter (statuses as of 11/27/2022) Medications Medication Sig Dispensed Refills Start Date [...] 90 Blister Dosing Unit 3 11/01/2022 Active Mounjaro 2.5 MG/0.5ML Subcutaneous Solution Pen-injector (Tirzepatide) Inject 2.5 mg under the skin once a week for 30 days, THEN 5 mg once a week. 6 mL 0 11/01/2022 Active Amiodarone HCl 200 MG Oral Tablet (Cordarone)Indicat ions:Persistent atrial fibrillation (HCC) TAKE 1 TABLET BY MOUTH IN THE MORNING AND BEFORE BEDTIME 60 Tablet 2 11/06/2022 Active buPROPion HCl ER (XL) 300 MG Oral Tablet Extended Release 24 Hour (Wellbutrin XL) TAKE ONE TABLET BY MOUTH EVERY DAY IN THE MORNING 90 Tablet 1 11/27/2022 Active documented as of this encounter (statuses as of 11/27/2022) Active Problems Problem Noted Date Cerebrovascular accident (CV A) due to embolism of right middle cerebral artery 11/01/2022 Need for prophylactic vaccination and in oculation against influenza 11/01/2022 Atherosclerosis of diomede coronary arter y without angina pectoris 11/01/2022 Migraine without aura and without status migrainosus, not intractable 11/01/2022 COPD, group B, by GOLD 2017 classificati on 09/09/2022 Overview: Per COPD GOLD Classification Dyslipidemia 08/28/2022 Depression with anxiety 08/28/2022 Type 2 diabetes mellitus with hemoglobin A1c goal of less than 8.0% 08/09/2020 Asthma-COPD overlap syndrome 08/10/2018 Overview: Per COPD GOLD Classification Non-ischemic cardiomyopathy 07/02/2018 Morbid obesity 07/02/2018 LILI (obstructive sleep apnea) 01/29/2018 Persistent atrial fibrillation 8 MEDICATION USE AGREEMENT 03/28/2017 Mitral regurgitation 06/13/2015 documented as of this encounter (statuses as of 11/27/2022) Resolved Problems Problem Noted Date Resolved Date History of right MCA stroke 08/28/2022 09/0 03/2022 Onychomycosis 08/01/2022 08/28/2022 Hypertensive heart disease without congestive he art failure 02/01/2022 08/28/2022 Overview: HTN +Concentric L ventricular hypertrophy AN (generalized anxiety disorder) 06/28/2020 08/28/2022 Screening for diabetes mellitus 06/28/2020 08/09/2020 HTN (hypertension) 03/26/2019 08/28/2022 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 o r storm 03/26/2019 08/28/2022 Severe persistent asthma without complication 08/28/2022 Current mild episode of avani r depressive disorder without prior episode 07/02/2018 08/28/2022 Severe persistent asthma with exacerbation 03/2304/19/2020 Concentric left ventricular hypertrophy 01/31/20 18 08/28/2022 Centrilobular emphysema 01/30/2018 04/04/19 22 Incidental pulmonary nodule, > 3mm and < 8mm 04/201708/28/2022 COPD, mild 10/28/2017 08/12/2018 Overview: Per COPD GOLD Classification Pulmonary nodule less than 6 cm determined by computed tomography of lung 07/29/2017 11/02/2017 Body mass index (BMI) of 40.0 to 44.9 in adult 1 10/28/2017 Overview: Per Obesity protocol #1 Dyslipidemia, goal LDL below 100 08/16/2015 08/28/2022 Abnormal EKG 06/13/2015 08/28/2022 Hollenhorst plaque 06/13/2015 08/28/2022 MCCARTNEY (dyspnea on exertion) 06/13/20152020 Former tobacco use 06/13/2015 08/28/2022 Abdominal bruit 06/13/2015 08/28/2022 Asthma with severity to be determined 08/24/2009 09/06/2013 Overview: Per Asthma Taxonomy ICD-10 update of inactive term Tobacco use disorder 01/01/2009 06/02/2015 Osteoarthritis of hand 03/30/2007 3 ADVANCE DIRECTIVE INFORMATION 04/18/2005 Overview: No, Advance Directive brochure given to patient. EXTRINSIC ASTHMA, UNSPEC 05/12/2003 010 ATTN DEFIC NONHYPERACT 01/20/2003 3 ACUTE OR UNSPEC. HEPATITIS C W/O MENTION OF HEPA TIC COMA 03/06/2000 08/28/2022 Overview: Follow with Dr. Zabala Was told she was in remission CLASSICAL MIGRAINE WITHOU MENTION OF INTRACTABLE MIGRAINE 03/06/2000 08/28/2022 Major depressive disorder 2016 Overview: ICD-10 update of inactive term documented as of this encounter (statuses as of 11/27/2022) Immunizations Name Administration Dates Next Due COVID-19 mRNA, LNP-s, No Pre serve, 2-Dose Series (AutoRadio) 12/13/2020,05/30/2020,05/02/2020 COVID-19, LNP-s, No Preserve , Keith-sucrose, Ages 12+ (Pfizer) 07/04/2021 Pneumococcal Conjugate Vacci ne, 20-valent ([id number]) 02/13/2022 Pneumococcal Polysaccharide PPV23 (Pneumovax) 02/05/2020 Season Influenza, Quad, PF, Adjuvanted, 65+ Yrs, IM (FLUAD) 12/20/2019 Seasonal Influenza Virus Vac cine, Unspecified Formulation 01/01/2018 Seasonal Influenza, PF, 6 mo ns & Above, IM , (Flulaval) 12/21/2018,01/15/2018,01/08/2017 Seasonal Influenza, Quadriva lent Hd (Fluzone Hd) [...] = 0.6 oz pur e alcohol) rarely Food Insecurity Answer Date Recorded Within the past 12 months, y ou worried that your food would run out before you got money to buy more. Never true 07/17/2022 Within the past 12 months, t he food you bought just didn't last and you didn't have money to get more. Never true 07/17/2022 Sex Assigned at Date Recorded Female 07/02/2018 1:16 PM E DT Job Start Date Occupation Industry Not on file Not on file Not on file documented as of this encounter Last Filed Vital Signs Vital Sign Reading Time Taken Comments Blood Pressure 126/62 11/27/2022 9:03 AM EDT Pulse 66 11/27/2022 9:03 AM EDT Temperature 36.5 C (97.7 F) 11/27/2022 9:03 AM ED T Respiratory Rate - - Oxygen Saturation 94% 11/27/2022 9:03 AM EDT Inhaled Oxygen Concentration - - Weight 106.2 kg (234 lb 1.6 oz) 11/27/2022 9:03 AM EDT Height - - Body Mass Index 38.07 11/01/2022 12:53 PM EDT documented in this [...] as of this encounter Progress Notes * DONNA Buck - 11/27/2022 9:30 AM EDT DATE OF SERVICE: 11/27/2022 REFERRING PHYSICIAN: DONNA Benavides CC: follow up Office Visit 11/27/2022 : Feeling well. No abd pain. TOlerating PO intake well. No nausea, vomiting.No GERD. No dysphagia. Bowels moving well! No diarrhea/constipation. No black or bloody stools. Is working on weight loss. Since stroke in August started Mounjaro. No fever, chillls, CP, SOB. 05/16/2022 05/21/2022 06/11/2022 06/24/2022 07/17/2022 07/24/2022 Weight Weight 253 lb 252 lb 253 lb 6.4 oz 254 lb 250 lb 7.1 oz 248 lb 8 oz Weight 250 lb 08/01/2022 08/30/2022 09/13/2022 10/07/2022 11/01/2022 11/27/2022 Weight Weight 245 lb 6 oz 241 lb 9.6 oz 237 lb 236 lb 231 lb 9.6 oz 234 lb 1.6 oz ABD US 2022: Mild hepatic steatosis. ABD US 2022: Common duct prominent at 7 mm as discussed.Probable diffuse hepatic parenchymal fatty infiltration.Mild right renal hydronephrosis. EUS 2022: - There was no sign of significant pathology in the ampulla. - There was no sign of significant pathology in the common bile duct. - Hyperechoic material consistent with sludge was visualized endosonographically in the gallbladder. - There was abnormal echogenicity in the visualized portion of the liver consistent with fatty infiltration. - There was no sign of significant pathology in the entire pancreas. - Endosonographic images of the left adrenal gland were unremarkable. - The celiac trunk was endosonographically normal EGD 2022: Z-line regular, 42 cm from the incisors. - Ectopic gastric mucosa in the upper third of the esophagus. - LA Grade A reflux esophagitis with no bleeding. - Normal stomach. Biopsied. - Normal duodenal bulb and second portion of the duodenum. Family history of GI malignancy: colon cancer in maternal granparent Past Medical History: Diagnosis Date ACUTE OR UNSPEC. HEPATITIS C W/O MENTION OF HEPATIC COMA 03/06/[address] 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 onset in high school, focus is better medication since high school CLASSICAL MIGRAINE WITHOU MENTION OF INTRACTABLE MIGRAINE 03/06/2000 COPD (chronic obstructive pulmonary disease) (HCC) Depression with anxiety 08/28/2022 DEPRESSIVE DISORDER NEC Dyslipidemia 08/28/2022 History of right MCA stroke 08/28/2022 Hyperthyroidism 1977 MEDICATION USE AGREEMENT 03/28/2017 OSTEOARTHROS NOS-HAND 03/30/2007 Sleep apnea, obstructive Family History Problem Relation Age of Onset Hypertension Mother Bipolar Disorder Mother Renal Hx Mother age 94 Other (Natural causes) Father age 94 No Known Problems Sister No Known Problems Brother Colon cancer Grandfather (Maternal) Neurological Disorder Sister migraines Breast Cancer Sister Bipolar Disorder Sister Diabetes Uncle (Unspecified) Past Surgical History: Procedure Laterality Date APPENDECTOMY W/OTHER PROCEDURE age 29 BREAST BIOPSY Right 04/29/2002 Benign COLONOSCOPY, DIAGNOSTIC (RECTUM) 03/20/2007 repeat in 10 years COLONOSCOPY, DIAGNOSTIC (RECTUM) 03/30/2019 diverticulosis sigmoid colon/biopsies show adenomatous polyps/recall 5 years/COLONOSCOPY FLEXIBLE PROXIMAL DIAGNOSTIC performed by Nancy Moreno DO at [facility] EGD, FLEXIBLE,W/ENDOSCOPIC US 04/19/2022 reflux esophagitis, GB sludge / [facility] ELECTROPHYSIOLOGY EVAL, ATRIAL FIB, PULMONARY VEIN ISOL Bilateral 03/10/2018 ELECTROPHYSIOLOGY EVAL, ATRIAL FIB, PULMONARY VEIN ISOL performed by David Bains MD at [facility] ELECTROPHYSIOLOGY EVAL, ATRIAL FIB, PULMONARY VEIN ISOL Bilateral 06/24/2022 PVI RADIOFREQUENCY CATHETER ABLATION performed by Natalie Sheffield IV, MD at [facility],ABDOMEN W/ASPIRATE age 29 ovarian cyst Social History Tobacco Use Smoking status: Former Packs/day: 0.50 Years: 40.00 Pack years: 20.00 Types: Cigarettes Quit date: 01/26/2015 Years since quittin.8 Smokeless tobacco: Never Vaping Use Vaping Use: Never used Substance Use Topics Alcohol use: Yes Comment: rarely Drug use: No Review of patient's allergies indicates: Allergen Reactions Latex Other reaction(s): RASH Erythromycin Rash Ibuprofen Rash Latex Rash Sulfa Antibiotics Rash Current Outpatient Medications Medication Sig Dispense Refill [...] Box Dosing Unit 3 Nebulizers (NEBULIZER COMPRESSOR) MIS Inhale via nebulizer. With tubing please. Use [...] Ellipta 200-62.5-25 MCG/ACT Aerosol Powder Breath Activated (Nsommzksdsi-Qtotpqwfkhsa-Zwskdhktkf) Inhale 1 Puff by mouth in the morning. 90 Blister Dosing Unit 3 Mounjaro 2.5 MG/0.5ML Subcutaneous Solution Pen-injector (Tirzepatide) Inject 2.5 mg under the skinonce a week for 30 days, THEN 5 mg once a week. 6 mL 0 Amiodarone HCl 200 MG Oral Tablet (Cordarone) TAKE 1 TABLET BY MOUTH IN THE MORNING AND BEFORE BEDTIME 60 Tablet 2 buPROPion HCl ER (XL) 300 MG Oral Tablet Extended Release 24 Hour (Wellbutrin XL) TAKE ONE TABLET BY MOUTH EVERY DAY IN THE MORNING 90 Tablet 1 No current facility-administered medications for this visit. REVIEW OF SYSTEMS: All other findings negative except as noted in HPI. EXAM: BP 126/62 | Pulse 66 | Temp 36.5 C (97.7 F) | Wt 106.2 kg (234 lb 1.6 oz) | LMP 11/06/2006 | SpO2 94% | BMI 38.07 kg/m | BSA 2.22 m GENERAL: Well developed and well nourished in no acute distress. SKIN: No rashes, ulcers, jaundice or spider angiomata. HEENT: Normocephalic, sclera clear, pharynx normal. NECK: Supple, no lymphadenopathy. LUNGS: Clear to auscultation bilaterally, no respiratory distress or accessory muscles used. HEART: Regular rate & rhythm, no murmurs and no gallops. ABDOMEN: Normal bowel sounds, soft and nontender, no masses or hepatosplenomegaly. EXTREMITIES: No palmar erythema, no ankle edema, no skin discoloration, no clubbing, no cyanosis. NEURO: No lateralizing findings. Sensory/Motor grossly normal. DIAGNOSTIC TEST: Plan: Hepatic function panel Plt Pt inr Us abdomen limited ASSESSMENT AND PLAN: 67 year old female with history of fatty liver, biliary sludge and CBD dilation s/p EUS in 2022 she is having weight loss on Mounjaro which is prescribed for DM - Biliary dilation on ABD US - EGD/EUS 2022 reviewed - Gallbladder sludge on EUS - consider general surgery evaluation - she is not currently interested given recent CVA August 2022 - Fatty liver on EUS - LFTs and ABD US yearly - Continued efforts in diet/exercise and weight loss - No ETOH - Colonoscopy 2024 - ED for emergencies - Please call with any questions or concerns RETURN TO CLINIC: 6 months I spent a total of 30 minutes on the date of service in review of patient's record, and previously obtained information in person and appropriate medical visit, discussion and education of plan, withpatient and/or caregiver, placing orders for tests/referral/procedures as medically necessary and documentation of pertinent clinical information in patient's medical records for their visit today. DONNA Mukherjee 11/27/2022 9:32 AM documented in this encounter Nursing Notes * Heidi Mak LPN - 11/27/2022 9:06 AM EDT Patient identified by name and date of . Chief Complaint Patient presents with Follow Up Follow up after ultrasound - fatty liver documented in this encounter Plan of Treatment Upcoming Encounters Date Type Specialty Care Team Description 12/23/2022 Office Visit Cardiology Rodo Romero, DO [address] [place] [phone] 12/24/2022 Office Visit [facility] [address] [facility] [address] 01/31/2023 Office Visit Family Medicine Luz Morales CRNP [address] [place] [id number] 05/28/2023 Imaging Radiology 06/17/2023 Office Visit Sleep Disorders Ariana Beltran DO [address] [place] [id number] Scheduled Orders Name Type Priority Associated Diagnoses Orde r Schedule HEPATIC FUNCTION PANEL Lab Routine Fatty liver Expected: 11/27/2022, Expires: 11/28/2023 PLT Lab Routine Fatty liver Expected: 11/27/2022, Expires: 11/28/2023 PT INR Lab Routine Fatty liver Expected: 11/27/2022, Expires: 11/28/2023 US ABDOMEN LIMITED Medical Imaging Routine Fatty liver Expected: 05/28/2023, Expires: 12/28/2023 Scheduled Procedures Name Priority Associated Diagnoses Date/Ti me COLONOSCOPY FLEXIBLE PROXIMA L DIAGNOSTIC Recall History of colonic polyps Health Maintenance Due Date Last Done Comments Alpha-1 Antitrypsin 1972 DIABETES-EYE EXAM 06/26/2016 06/27/2015, , 05/30/2015 Depression [...] this topic Zoster Vaccines Completed 08/27/2019, 03/31/2019 COVID-19 Vaccine Completed 11/09/2021, 06/2021, 12/13/2020, Additional history exists Pneumococcal Vaccine: 65+ Years Completed 02/13/2022, 02/05/2020, 01/17/2005 LUNG CANCER SCREENING - USE SMARTSET [id number] Completed 07/19/2022, 07/06/2021, 04/11/2020, Additional history exists Influenza Vaccine (FLU shot) Completed 03/2022, 01/11/2022, 01/12/2021, Additional history exists GARDASIL-HPV IMMUNIZATION SERIES Aged Out No longer eligible based on patient's age to complete this topic Hepatitis B Aged Out No longer eligi ble based on patient's age to complete this topic documented as of this encounter Medical Devices Implanted Type Area Survey Research Analyst Device Identifier Shelf Expiration Date Model / Serial / Lot Wire Jairo - [id number] Implanted:Qty: 1 on 06/24/2022 by Natalie Sheffield IV, MD at [facility] [employer] : PERIP[place] IV [id number] 12/13/2023 [id number] documented as of this encounter Visit Diagnoses Diagnosis Fatty liver- Primary Other chronic nonalcoholic liver disease documented in this encounter Advance Directives Latest [...] the patient have Health Care Power of Plastic Frame Inserter? No Healthcare Agents on File Name Relationship Healthcare Agent Relationshi p Communication Enid Patel Adult Child Health Care Repr esentative (appointed verbally by patient or by statute hierarchy) Care Teams Pet Stylist Relationship Specialty Start Date End Date Luz Morales CRNP [address] [place] [phone] PCP - General Nurse Practitioner 09/27/20 documented as of this encounter"
--- OUTSIDE RECORDS SUMMARY | 2023-01-23 19:37 | External Medical Summary | Summary of Care ---
Author Name Unknown Organization [facility] Address [address] [place] [address] Phone [phone] Care Team Providers Care Administrator Health Care Facility Name Role Phone Luz Morales Primary Care Provider Reason for Visit * Reason Onset Date Comments Medication Refill 10/16/2022 Encounter Details Date Type Department Care Team Description 10/16/2022 Refill Pulmonary Medicine, [facility] [address] [place] [id number] Luz Morales CRNP [address] [place] [id number] Allergies Active Allergy Reactions Severity Noted Date Comments Erythromycin Rash 12/14/1999 Ibuprofen Rash 08/05/2011 Latex Rash 03/20/2007 Latex High 07/24/2022 Other reaction(s): RASH Sulfa Antibiotics Rash 12/14/1999 documented as of this encounter (statuses as of 10/17/2022) Medications Medication Sig Dispensed Refills Start Date [...] 1 Box Dosing Unit 3 03/23/2018 Active Additional Information Patient not taking.Reported on 09/13/2022 Nebulizers (NEBULIZER COMPRESSOR) MISCIndications:C OPD, mild (HCC),MCCARTNEY [...] twice daily 22 g 4 02/13/2021 Active Additional Information Patient not taking.Reported on 08/30/2022 Mepolizumab 100 MG/ML Subcutaneous Solution Auto-injectorIndi cations:Severe [...] per day 180 Tablet 3 08/01/2022 Active Amiodarone HCl 200 MG Oral Tablet (Cordarone) Take 1 Tablet by mouth in the morning and 1 Tablet before bedtime. 60 Tablet 2 08/01/2022 Active oxyCODONE-Acetami nophen 5-325 MG Oral Tablet Take 1 Tablet by mouth every 8 hours as needed for Other (headache). On backorder at pharmacy, has not started taking yet. 08/30/22. 0 Active Fluocinolone Acetonide Scalp 0.01 % External Oil Apply to scalp once weekly over night as directed 118.28 mL 0 08/30/2022 Active Dulaglutide 4.5 MG/0.5ML Subcutaneous Solution Pen-injector (Trulicity)Indica tions:Type 2 diabetes mellitus without complication, without long-term current use of insulin (HCC) INJECT 4.5 MG UNDER THE SKIN ONCE WEEKLY 6 mL 1 08/27/2022 4 Active Ciclopirox 8 % External Solution APPLY [...] OralHS, Informant: At Discharge, Reported on 08/30/2022 buPROPion HCl ER (XL) 300 MG Oral Tablet Extended Release 24 Hour (Wellbutrin XL) TAKE ONE TABLET BY MOUTH EVERY DAY IN THE MORNING 90 Tablet 1 04/08/2022 4 Active Gabapentin 100 MG Oral Capsule (Neurontin)Indica tions:Migraine without aura and without status migrainosus, not intractable,Acute ischemic right MCA stroke (HCC),Memory loss Take 1 Capsule by mouth in the morning and 1 Capsule in the evening. 60 Capsule 1 09/13/2022 Active predniSONE 10 MG Oral Tablet (Deltasone)Indica tions:Gouty arthritis of left great toe Take 5 tabs for 2 days, 4 tabs for 2 days, 3 tabs for 2 days, 2 tabs for 2 days 1 tab for 2 days 30 Tablet 0 10/07/2022 Active Clobetasol Propionate 0.05 % External SolutionIndicatio [...] or Wheezing. 18 g 5 10/17/2022 Active Albuterol Sulfate HFA 108 (90 Base) MCG/ACT Inhalation Aerosol Solution Inhale by mouth 2 Puffs every 4 hours as needed for Shortness of Breath or Wheezing. 18 g 5 05/01/2021 3 Discontinu ed(Refill) documented as of this encounter (statuses as of 10/17/2022) Active Problems Problem Noted Date COPD, group B, by GOLD 2017 classificati on 09/09/2022 Overview: Per COPD GOLD Classification Dyslipidemia 08/28/2022 Depression with anxiety 08/28/2022 History of right MCA stroke 08/28/2022 Type 2 diabetes mellitus with hemoglobin A1c goal of less than 8.0% 08/09/2020 Asthma-COPD overlap syndrome 08/10/2018 Overview: Per COPD GOLD Classification Non-ischemic cardiomyopathy 07/02/2018 Morbid obesity 07/02/2018 LILI (obstructive sleep apnea) 01/29/2018 Persistent atrial fibrillation 8 MEDICATION USE AGREEMENT 03/28/2017 Mitral regurgitation 06/13/2015 documented as of this encounter (statuses as of 10/17/2022) Resolved Problems Problem Noted Date Resolved Date Onychomycosis 08/01/2022 08/28/2022 Hypertensive heart disease without [...] as of this encounter (statuses as of 10/17/2022) Immunizations Name Administration Dates Next Due COVID-19 mRNA, LNP-s, No Pre serve, 2-Dose Series (Net Transmit & Receive) 12/13/2020,05/30/2020,05/02/2020 COVID-19, LNP-s, No Preserve , Keith-sucrose, Ages 12+ (Pfizer) 07/04/2021 Pneumococcal Conjugate Vacci ne, 20-valent ([id number]) 02/13/2022 Pneumococcal Polysaccharide PPV23 (Pneumovax) 02/05/2020 Seasonal Influenza Virus Vac cine, Unspecified Formulation 01/01/2018 Seasonal Influenza, Quadriva lent Hd (Fluzone Hd) 01/12/2021 Seasonal Influenza, Quadriva lent, No Preserve, 6 Mons & Above, IM 12/21/2018,01/15/2018,01/08/2017 Seasonal Influenza, Quadriva lent, No Preserve, Adjuvanted, 65+ Yrs, IM 12/20/2019 Seasonal Influenza, Quadriva lent, No Preserve, IM [...] No 06/24/2022 documented as of this encounter Miscellaneous Notes * Telephone Encounter - Ayush Rollins MD - 10/17/2022 9:02 AM EDT Signed Prescriptions: Disp Refills Albuterol Sulfate HFA 108 (90 Base) MCG/AC*18 g 5 Sig: Inhale 2 Puffs by mouth every 4 hours as needed for Shortness of Breath or Wheezing.Authorizing Provider: AYUSH ROLLINS * Telephone Encounter - Jaelyn Rojas LPN - 10/16/2022 3:33 PM EDTPending Prescriptions: Disp Refills Albuterol Sulfate HFA 108 (90 Base) MCG/AC*18 g 5 Sig: Inhale 2Puffs by mouth every 4 hours as needed for Shortness of Breath or Wheezing. documented in this encounter Plan of Treatment Upcoming Encounters Date Type Specialty Care Team Description 11/01/2022 Office Visit Family Medicine Luz Morales CRNP [address] [place] [phone] 11/21/2022 Imaging Radiology 11/27/2022 Office Visit Gastroenterology Yumiko Gonzalez CRNP [address] [place] [address] 12/23/2022 Office Visit Cardiology Rodo Romero DO [address] [place] [phone] 12/24/2022 Office Visit Neurology Harsha Wright, DO [address] [place] [address] 06/17/2023 Office Visit Sleep Disorders Ariana Beltran, DO [address] [place] [phone] Scheduled Procedures Name Priority Associated Diagnoses Date/Ti me COLONOSCOPY FLEXIBLE PROXIMA L DIAGNOSTIC Recall History of colonic polyps Health Maintenance Due Date Last Done Comments Alpha-1 Antitrypsin 1972 DIABETES-EYE EXAM 06/26/2016 06/27/2015, , 05/30/2015 Depression Screening, Annual for Pts 12 and Over 08/14/2022 08/14/2021 Mammogram 08/14/2022 08/14/2021, 11/2020, 06/10/2018, Additional history exists Influenza Vaccine (FLU shot) (#1) 2022 01/11/2022, 01/12/2021, 12/20/2019, Additional history exists DIABETES-FOOT EXAM 02/13/2023 02/13/2022, 05/09/2021 HbA1c 03/16/2023 09/13/2022, 05/2021, 07/04/2021, Additional history exists O2 ASSESSMENT COMPLETED IN PAST YEAR FOR COPD 06/25/2023 06/24/2022 DXA Scan 08/28/2023 08/27/2016 GFR 09/14/2023 09/13/2022, 08/02, 06/24/2022, Additional history exists Albumin/Creatinine Ratio 09/18/2023 023, 05/09/2021, 06/28/2020 COLONOSCOPY-EVERY 5 YRS AGES 18-100 03/30/2024 03/30/2019, 03/30/2019, 03/20/2007 DTaP,Tdap,and Td Vaccines (2 - Td or Tdap) 06/05/2025 06/06/2015, 08/01/2009 Lipid Panel 12/03/2026 12/03/2021, 07/01, 09/20/2016, Additional history exists MENINGOCOCCAL (MENACTRA/MENVEO) Aged Out 03/20/2004 No longer eligible based on patient's age to complete this topic Zoster Vaccines Completed 08/27/2019, 03/31/2019 COVID-19 Vaccine Completed 11/09/2021, 06/2021, 12/13/2020, Additional history exists Pneumococcal Vaccine: 65+ Years Completed 02/13/2022, 02/05/2020, 01/17/2005 LUNG CANCER SCREENING - USE SMARTSET [id number] Completed 07/19/2022, 07/06/2021, 04/11/2020, Additional history exists GARDASIL-HPV IMMUNIZATION SERIES Aged Out No longer eligible based on patient's age to complete this topic Hepatitis B Aged Out No longer eligi ble based on patient's age to complete this topic documented as of this encounter Medical Devices Implanted Type Area Ornamental Iron Erector Device Identifier Shelf Expiration Date Model / Serial / Lot Wire Mailman - [id number] Implanted:Qty: 1 on 06/24/2022 by Natalie Sheffield IV, MD at [facility] [place] [id number] 12/13/2023 [id number] documented as of this encounter Advance Directives [...] the patient have Health Care Power of Lay Out Drafter? No Healthcare Agents on File Name Relationship Healthcare Agent [facility] Communication Enid Patel Adult Child Health Care Repr esentative (appointed verbally by patient or by statute hierarchy) Care Teams Administrator Health Care Facility Relationship Specialty Start Date End Date Luz Morales CRNP [address] [place] [address] PCP - General Nurse Practitioner 09/27/20 documented as of this encounter
--- OUTSIDE RECORDS SUMMARY | 2023-01-23 19:37 | External Medical Summary | Summary of Care ---
Author Name Unknown Organization [facility] Address [address] [place] [address] Phone [phone] Care Team Providers Care Furniture Sprayer Name Role Phone Luz Morales Primary Care Provider Reason for Visit * Reason Onset Date Comments Medication Pre-auth 11/08/2022 home Encounter Details Date Type Department Care Team Description 11/08/2022 Telephone [facility] [address] [facility] [address] [facility] CR[facility] [address] [facility] [place] [address] Medication Pre-auth (lizro) Allergies Active Allergy Reactions Severity Noted Date Comments Erythromycin Rash 12/14/1999 Ibuprofen Rash 08/05/2011 Latex Rash 03/20/2007 Latex High 07/24/2022 Other reaction(s): RASH Sulfa Antibiotics Rash 12/14/1999 documented as of this encounter (statuses as of 11/11/2022) Medications Medication Sig Dispensed Refills Start Date [...] not taking.Reported on 09/13/2022 Nebulizers (NEBULIZER COMPRESSOR) MISCIndications:CO PD, mild (HCC),MCCARTNEY [...] 4 Active Gabapentin 100 MG Oral Capsule (Neurontin)Indicat ions:Migraine [...] once a week. 6 mL 0 11/01/2022 3 Active Amiodarone HCl 200 MG Oral Tablet (Cordarone)Indicat ions:Persistent atrial fibrillation (HCC) TAKE 1 TABLET BY MOUTH IN THE MORNING AND BEFORE BEDTIME 60 Tablet 2 11/06/2022 Active documented as of this encounter (statuses as of 11/11/2022) Active Problems Problem Noted Date Cerebrovascular accident (CV A) due to embolism of right middle cerebral artery 11/01/2022 Need for prophylactic vaccination and in oculation against influenza 11/01/2022 Atherosclerosis of comanche coronary arter y without angina pectoris 11/01/2022 [...] as of this encounter (statuses as of 11/11/2022) Resolved Problems Problem Noted Date Resolved Date [...] as of this encounter (statuses as of 11/11/2022) Immunizations Name Administration Dates Next Due COVID-19 mRNA, LNP-s, No Pre serve, 2-Dose Series ([facility]) 12/13/2020,05/30/2020,05/02/2020 COVID-19, LNP-s, No Preserve , Keith-sucrose, Ages 12+ (Pfizer) 07/04/2021 Pneumococcal Conjugate Vacci ne, 20-valent ([id number]) 02/13/2022 Pneumococcal Polysaccharide PPV23 (Pneumovax) 02/05/2020 Season [...] encounter Miscellaneous Notes * Telephone Encounter - Daniel Rosas CPhT - 11/11/2022 9:43 AM EDT Submitted information in previous note via [email or web address] (EOC: [id number]).. Awaiting payer response. We will follow-up with insurance starting 11/12. Per [facility] request, if no decision is received from insurance by 11/13, we will route back to the [facility] after clarifying with the pharmacy that the claim is still not processing. Thank you, Bacilio Rosas ([facility]) [facility] ([facility] (formerly [email or web address]) 11/11/2022, 9:43 AM * Telephone Encounter - Nancy Leija RP - 11/09/2022 10:41 AM EDT Please submit PA. Include the following documentation: 11/01/22 OV note 09/13/22 a1c Please copy and paste the following information into PA form: Pt on metformin What other drugs is there medical record documentation of therapeutic failure on, intolerance to, or contraindication to for this condition? Trulicity Ozempic Sukhdev as urgent: No Diagnosis/ICD-10 Code(s): E11.9 If instantaneous decision is not received after submitting prior auth, please continue to follow upon this and route back to the [facility] pool if no decision is made by the insurance by 11/13, after clarifying with the pharmacy that the claim is still not processing. If PA is denied, please also route back to [facility] pool. Thanks, Nancy Leija, PharmD Clinical Pharmacist [facility] ([facility]) (formerly [email or web address]) [phone] 11/09/2022 10:41 AM * Telephone Encounter - Daniel Rosas CPhT - 11/08/2022 2:02 PM EDT This is a new PA request. Upon review of this prior authorization request, I verified this request is appropriate. This is prescribed by a department for which [facility] is authorized to review prior authorizations This is not a duplicate encounter regarding the same prior authorization The patient is planning to use insurance The insurance information listed in previous note is correct and the plan that is requiring prior authorization The insurance does not cover either brand or generic forms of this script as written without prior authorization The insurance does not cover any NDCs of this script without prior authorization Pharmacy benefits are not in chart (unable to verify coverage via RX Estimate tool) Of note, there is nothing currently pending in [facility] for this request. Please advise how to proceed. Thank you, Bacilio Jorge) [facility] ([facility] (formerly [facility]) 11/08/2022, 2:02 PM * Telephone Encounter - Torie Love CPhT - 11/08/2022 1:36 PM EDT pharmacy calling to inform doctor that the patient's insurance will not pay for this medication without a completed prior authorization. Did confirm this information with the pharmacy. Pt's current insurance information is as follows: Patient name: Kimberly Hernandez ID number: [id number] BIN number: [id number] PCN number: [id number] Group number: Subscriber name: Kimberly Hernandez Primary or Secondary Insurance:Primary Medication: [email or web address] Reason for Request: PA required Pharmacy and phone number: [facility] [phone] Rx plan and phone number: [facility] [phone] What alternative medications does the pharmacy have in stock?: Thank you, Torie Love CPhT [facility] ([facility]) (Formerly [facility]) 11/08/2022, 1:38 PM documented in this encounter Plan of Treatment Upcoming Encounters Date Type Specialty Care Team Description 11/21/2022 Imaging Radiology 11/27/2022 Office Visit Gastroenterology Yumiko Gonzalez CRNP [address] [place] [phone] 12/23/2022 Office Visit Cardiology Rodo Romero, DO [address] [place] [address] 12/24/2022 Office Visit Neurology Harsha Wright, DO [address] [facility] [place] [address] 01/31/2023 Office Visit Family Medicine Luz Morales CRNP [address] [place] [address] 06/17/2023 Office Visit Sleep Disorders Ariana Beltran, [address] [place] [address] Scheduled Procedures Name Priority Associated Diagnoses Date/Ti [...] 01/17/2005 LUNG CANCER SCREENING - USE SMARTSET [id number] Completed 07/19/2022, 07/06/2021, 04/11/2020, Additional history exists Influenza Vaccine (FLU shot) Completed 03/2022, 01/11/2022, 01/12/2021, Additional history exists GARDASIL-HPV IMMUNIZATION SERIES Aged Out No longer eligible based on patient's age to complete this topic Hepatitis B Aged Out No longer eligi ble based on patient's age to complete this topic documented as of this encounter Medical Devices Implanted Type Area Loan Servicing Representative Device Identifier Shelf Expiration Date Model / Serial / Lot Wire Mailman - [id number] Implanted:Qty: 1 on 06/24/2022 by Natalie Sheffield IV, MD at [facility] : [place] [id number] 12/13/2023 [id number] / [id number] documented as of this encounter Advance Directives [...] the patient have Health Care Power of Toll Repairer Central Office? No Healthcare Agents on File Name Relationship Healthcare Agent Relationshi p Communication Enid Patel Adult Child Health Care Repr esentative (appointed verbally by patient or by statute hierarchy) Care Teams Furniture Sprayer Relationship Specialty Start Date End Date Luz Morales CRNP [address] [place] [address] PCP - General Nurse Practitioner 09/27/20 documented as of this encounter
--- OUTSIDE RECORDS SUMMARY | 2023-01-23 19:37 | External Medical Summary | Summary of Care ---
Author Name Unknown Organization [facility] Address [address] [place] [address] Phone [phone] Care Team Providers Care Hazardous Materials Handler Name Role Phone Luz Morales Primary Care Provider Reason for Visit * Reason Onset Date Comments Medication Pre-auth 11/08/2022 livier Encounter Details Date Type Department Care Team Description 11/08/2022 Telephone Family Practice [facility] [address] [facility] [address] [facility] [address] [facility] [address] Medication Pre-auth (lizro) Allergies Active Allergy Reactions Severity Noted Date Comments Erythromycin Rash 12/14/1999 Ibuprofen Rash 08/05/2011 Latex Rash 03/20/2007 Latex High 07/24/2022 Other reaction(s): RASH Sulfa Antibiotics Rash 12/14/1999 documented as of this encounter (statuses as of 11/12/2022) Medications Medication Sig Dispensed Refills Start Date [...] as of this encounter (statuses as of 11/12/2022) Active Problems Problem Noted Date Cerebrovascular accident (CV A) due to embolism of right middle cerebral artery 11/01/2022 Need for prophylactic vaccination and in oculation against influenza 11/01/2022 Atherosclerosis of alturas coronary arter y without angina pectoris 11/01/2022 [...] as of this encounter (statuses as of 11/12/2022) Resolved Problems Problem Noted Date Resolved Date [...] as of this encounter (statuses as of 11/12/2022) Immunizations Name Administration Dates Next Due COVID-19 mRNA, LNP-s, No Pre serve, 2-Dose Series (TechniScan) 12/13/2020,05/30/2020,05/02/2020 COVID-19, LNP-s, No Preserve , Keith-sucrose, Ages 12+ (Pfizer) 07/04/2021 HEP A - Hepatitis A (Adult > 18 yrs) 03/20/2004 IPV - Polio Virus Vaccine (Inact) 03/20/2004 Meningococcal Polysaccharide Vaccine (Menommune) 03/20/2004 PPD 05/25/2003,05/10/2003,07/02/1995 Pneumococcal Conjugate Vacci ne, 20-valent ([id number]) 02/13/2022 Pneumococcal Polysaccharide PPV23 (Pneumovax) 02/05/2020,01/17/2005 Season Influenza, Quad, PF, Adjuvanted, 65+ Yrs, IM (FLUAD) 12/20/2019 Seasonal Influenza Virus Vac cine, Unspecified Formulation 01/01/2018 Seasonal Influenza, PF, 6 mo ns & Above, IM , (Flulaval) 12/21/2018,01/15/2018,01/08/2017 Seasonal Influenza, Quadriva lent Hd (Fluzone Hd) 11/01/2022,01/12/2021 Seasonal Influenza, Quadriva lent, No Preserve, IM 01/03/2016 Seasonal Influenza, Quadriva lent, No Preserve, Mdck 12/17/2017 Seasonal Influenza, Split, I IV3, With Preserve, Inj 01/26/2014,01/07/2013,01/01/2012,02/11,12/10/2007,01/02/2007,01/17/2005 ,04/25/2004 TD - Tetanus/Diptheria (ADULT) 08/01/2009 TDAP (age 10 and older)(Boostrix) 06/06/2015 Typhoid Vaccine Oral (Vivotif) 03/20/2004 Zoster Vaccine Recombinant (Shingrix) 08/27/2019 ,03/31/2019 documented [...] Telephone Encounter - Daniel Rosas CPhT - 11/12/2022 8:33 AM EDT Checked status of prior authorization for LIVIER through [employer]. Patient and pharmacy notified of approval. Approved until(if applicable): N/A Mail order received paid claim and will get ready to ship Thank you, Bac[facility]) Director Of Consumer Affairs III [facility] ([facility]) (formerly Telepharmacy) 11/12/2022, 8:33 AM * Telephone Encounter - Daniel Rosas CPhT - 11/11/2022 9:43 AM EDT Submitted information in previous note via [employer] (EOC: [id number]).. Awaiting payer response. We will follow-up with insurance starting 11/12. Per [facility] request, if no decision is received from insurance by 11/13, we will route back to the [facility] after clarifying with the pharmacy that the claim is still not processing. Thank you, Bacilio Rosas ([facility]) Director Of Consumer Affairs III [facility] ([facility]) (formerly Telepharmacy) 11/11/2022, 9:43 AM * Telephone Encounter - Nancy Leija [facility] - 11/09/2022 10:41 AM EDT Please submit PA. Include the following documentation: 11/01/22 OV note 09/13/22 a1c Please copy and paste the following information into PA form: Pt on metformin What other drugs is there medical record documentation of therapeutic failure on, intolerance to, or contraindication to for this condition? Rashadredheidy Guadarrama Sukhdev as urgent: No Diagnosis/ICD-10 Code(s): E11.9 If instantaneous decision is not received after submitting prior auth, please continue to follow upon this and route back to the [facility] pool if no decision is made by the insurance by 11/13, after clarifying with the pharmacy that the claim is still not processing. If PA is denied, please also route back to [facility] pool. Thanks, Malik AlvarezD Clinical Pharmacist [facility] ([facility]) (formerly [employer]) [phone] 11/09/2022 10:41 AM * Telephone Encounter - Daniel Rosas CPhT - 11/08/2022 2:02 PM EDT This is a new PA request. Upon review of this prior authorization request, I verified this request is appropriate. This is prescribed by a department for which [facility] is authorized to review prior authorizations This [...] note, there is nothing currently pending in [facility] for this request. Please advise how to proceed. Thank you, Bacilio Rosas ([facility]) Director Of Consumer Affairs III [facility] ([facility]) (formerly Telepharmacy) 11/08/2022, 2:02 PM * Telephone Encounter - Torie Love CPhT - 11/08/2022 1:36 PM EDT pharmacy calling to inform doctor that the patient's insurance will not pay for this medication without a completed prior authorization. Did confirm this information with the pharmacy. Pt's current insurance information is as follows: Patient name: Kimberly Hernandez ID number: [id number] BIN number: [id number] PCN number: [id number] Group number: Subscriber name: Kimbrely Hernandez Primary or Secondary Insurance:Primary Medication: [email or web address] Reason for Request: PA required Pharmacy and phone number: [facility] [phone] Rx plan and phone number: [facility] [phone] What alternative medications does the pharmacy have in stock?: Thank you, Torie Love CPhT Director Of Consumer Affairs [facility] ([facility]) (Formerly Telepharmacy) 11/08/2022, 1:38 PM documented in this encounter Plan of Treatment Upcoming Encounters Date Type Specialty Care Team Description 11/21/2022 Imaging Radiology 11/27/2022 Office Visit Gastroenterology Yumiko Gonzalez CRNP [address] [place] [address] 12/23/2022 Office Visit Cardiology Rodo Romero DO [address] [place] [address] 12/24/2022 Office Visit [facility] [address] [facility] [address] 01/31/2023 Office Visit Family Medicine Luz Morales CRNP [address] [place] [address] 06/17/2023 Office Visit Sleep Disorders Ariana Beltran DO [address] [place] [address] Scheduled Procedures Name Priority Associated Diagnoses Date/Ti [...] 01/17/2005 LUNG CANCER SCREENING - USE SMARTSET 09151 Completed 07/19/2022, 07/06/2021, 04/11/2020, Additional history exists Influenza Vaccine (FLU shot) Completed 03/2022, 01/11/2022, 01/12/2021, Additional history exists GARDASIL-HPV IMMUNIZATION SERIES Aged Out No longer eligible based on patient's age to complete this topic Hepatitis B Aged Out No longer eligi ble based on patient's age to complete this topic documented as of this encounter Medical Devices Implanted Type Area Stone Grader Device Identifier Shelf Expiration Date Model / Serial / Lot Wire Jairo - [id number] Implanted:Qty: 1 on 06/24/2022 by Natalie Sheffield IV, MD at [facility] [employer] : [place] IV [id number] 12/13/2023 [id number] / [id number] documented as of this encounter Advance Directives [...] the patient have Health Care Power of Boat Carpenter? No Healthcare Agents on File Name Relationship Healthcare Agent Relationshi p Communication Enid Patel Adult Child Health Care Repr esentative (appointed verbally by patient or by statute hierarchy) Care Teams Hazardous Materials Handler Relationship Specialty Start Date End Date Luz Morales CRNP [address] [place] [address] PCP - General Nurse Practitioner 09/27/20 documented as of this encounter
--- OUTSIDE RECORDS SUMMARY | 2023-01-23 19:37 | External Medical Summary | Summary of Care ---
Author Name Unknown Organization [facility] Address [address] [place] [address] Phone [phone] Care Team Providers Care Package Sorter Name Role Phone Luz Morales DONNA Primary Care Provider Reason for Visit * Reason Comments Other Encounter Details Date Type Department Care Team Description 10/07/2022 Convenient Care Visit [facility] [address] [place] [address] Jimmy Ruiz PA-C [address] [facility] [address] [place] [address] Gouty arthritis of left great toe*; Atopic dermatitis of scalp Allergies Active Allergy Reactions Severity Noted Date Comments Erythromycin Rash 12/14/1999 Ibuprofen Rash 08/05/2011 Latex Rash 03/20/2007 Latex High 07/24/2022 Other reaction(s): RASH Sulfa Antibiotics Rash 12/14/1999 documented as of this encounter (statuses as of 10/08/2022) Medications Medication Sig Dispensed Refills Start Date [...] Additional Information Patient not taking.Reported on 08/30/2022 Albuterol Sulfate HFA 108 (90 Base) MCG/ACT Inhalation Aerosol Solution Inhale by mouth 2 Puffs every 4 hours as needed for Shortness of Breath or Wheezing. 18 g 5 05/01/2021 Active Mepolizumab 100 MG/ML Subcutaneous Solution Auto-injectorIndic [...] before bedtime. 60 Tablet 2 08/01/2022 Active oxyCODONE-Acetamin ophen 5-325 MG Oral Tablet Take 1 Tablet by mouth every 8 hours as needed for Other (headache). On backorder at pharmacy, has not started taking yet. 08/30/22. 0 Active Fluocinolone Acetonide Scalp 0.01 % External Oil Apply to scalp once weekly over night as directed 118.28 mL 0 08/30/2022 Active Dulaglutide 4.5 MG/0.5ML Subcutaneous Solution Pen-injector (Trulicity)Indicat ions:Type 2 diabetes mellitus without complication, without long-term [...] 09/13/2022 Active predniSONE 10 MG Oral Tablet (Deltasone)Indicat ions:Gouty arthritis of left great toe Take 5 tabs for 2 days, 4 tabs for 2 days, 3 tabs for 2 days, 2 tabs for 2 days 1 tab for 2 days 30 Tablet 0 10/07/2022 Active Clobetasol Propionate 0.05 % External SolutionIndication s:Atopic dermatitis of scalp Apply topically to affected area 2 times a day. To use to scalp for up to two weeks. 50 mL 1 10/07/2022 Active documented as of this encounter (statuses as of 10/08/2022) Active Problems Problem Noted Date COPD, group [...] as of this encounter (statuses as of 10/08/2022) Resolved Problems Problem Noted Date Resolved Date [...] as of this encounter (statuses as of 10/08/2022) Immunizations Name Administration Dates Next Due COVID-19 mRNA, LNP-s, No Pre serve, 2-Dose Series ([employer]) 12/13/2020,05/30/2020,05/02/2020 COVID-19, LNP-s, No Preserve , Keith-sucrose, Ages 12+ (Pfizer) 07/04/2021 Pneumococcal Conjugate Vacci ne, 20-valent (Isyopin66) 02/13/2022 Pneumococcal Polysaccharide PPV23 (Pneumovax) 02/05/2020 Seasonal [...] 40 Q uit: 01/26/2015 Smokeless Tobacco: Never Tobacco Cessation:Counseling Given: Not Answered Alcohol Use Standard Drinks/Week Comments Yes 0 [...] Sign Reading Time Taken Comments Blood Pressure 130/70 10/07/2022 10:45 AM EDT Pulse 70 10/07/2022 10:45 AM EDT Temperature 36.8 C (98.2 F) 10/07/2022 10:45 AM E DT Respiratory Rate 16 10/07/2022 10:45 AM EDT Oxygen Saturation 97% 10/07/2022 10:45 AM EDT Inhaled Oxygen Concentration - - Weight 107 kg (236 lb) 10/07/2022 10:45 AM EDT Height - - Body Mass Index 38.38 07/24/2022 8:30 AM EDT documented in this encounter Functional Status [...] No 06/24/2022 documented as of this encounter Patient Instructions * Patient Instructions* Jimmy Ruiz PA-C - 10/07/2022 11:00 AM EDT Practice RICE (Rest, Ice, Compression, Elevation) to affected area. Be sure to finish entire course of prednisone even if you are feeling better. Be aware of possible side effects of prednisone as discussed (increased appetite, weight gain, hyperglycemia, insomnia, dizziness). Do not take NSAIDs while taking prednisone (Ibuprofen, Naproxen), ok to use Tylenol for pain control, as well. With no improvement in 4-5 days F/U with PCP, sooner if worse. With any acute change or new symptoms go to the ED. documented in this encounter Progress Notes * Jimmy Ruiz PA-C - 10/07/2022 10:53 AM EDT CONVENIENT CARE NOTE HPI: Kimberly Hernandez is a 67 year old female who presents with chief complaint of L great toe issue x 3-4 days Pt notes started with pain in L great toe roughly 4 days ago. In the last few days, increased redness, warmth, pain. Has been using tylenol, elevating, icing. No injury or trauma. No fever/chills. No numbness or tingling. Feels she has been eating more meat maybe than usual. No inc in alcohol or other change in diet. Feels well otherwise. Also notes ongoing itchy scalp, has used clobetasol PRN and that helps a lot. ROS: See HPI for positives and negatives. Patient denies additional complaints. PAST MEDICAL HISTORY: Patient Active Problem List Diagnosis Code Mitral regurgitation I34.0 MEDICATION USE AGREEMENT [id number] Persistent atrial fibrillation (HCC) I48.19 LILI (obstructive sleep apnea) G47.33 Non-ischemic cardiomyopathy (HCC) I42.8 Morbid obesity ([facility]) E66.01 Asthma-COPD overlap syndrome ([facility]) J44.9 Type 2 diabetes mellitus with hemoglobin A1c goal of less than 8.0% ([facility]) E11.9 Dyslipidemia E78.5 Depression with anxiety F41.8 History of right MCA stroke Z86.73 COPD, group B, by GOLD 2017 classification ([facility]) J44.9 Past Surgical History: Procedure Laterality Date APPENDECTOMY W/OTHER PROCEDURE age 29 BREAST BIOPSY Right 04/29/2002 Benign COLONOSCOPY, DIAGNOSTIC (RECTUM) 03/20/2007 repeat in 10 years COLONOSCOPY, DIAGNOSTIC (RECTUM) 03/30/2019 diverticulosis sigmoid colon/biopsies show adenomatous polyps/recall 5 years/COLONOSCOPY FLEXIBLE PROXIMAL DIAGNOSTIC performed by Nancy Moreno DO at ENDOSCOPY [facility] EGD, FLEXIBLE,W/ENDOSCOPIC US 04/19/2022 reflux esophagitis, GB sludge / [facility] ELECTROPHYSIOLOGY EVAL, ATRIAL FIB, PULMONARY VEIN ISOL Bilateral 03/10/2018 ELECTROPHYSIOLOGY EVAL, ATRIAL FIB, PULMONARY VEIN ISOL performed by David Bains MD at [facility] [place]LECTROPHYSIOLOGY EVAL, ATRIAL FIB, PULMONARY VEIN ISOL Bilateral 06/24/2022 PVI RADIOFREQUENCY CATHETER ABLATION performed by Natalie Sheffield IV, MD at [facility] LAP,ABDOMEN W/ASPIRATE age 29 ovarian cyst Review of patient's allergies indicates: Allergen Reactions Latex Other reaction(s): RASH Erythromycin Rash Ibuprofen Rash Latex Rash Sulfa Antibiotics Rash Current Outpatient Medications Medication Sig Dispense Refill predniSONE 10 MG Oral Tablet (Deltasone) Take 5 tabs for 2 days, 4 tabs for 2 days, 3 tabs for 2 days, 2 tabs for 2 days 1 tab for 2 days 30 Tablet 0 Clobetasol Propionate 0.05 % External Solution Apply topically to affected area 2 times a day. To use to scalp for up to two weeks. 50 mL 1 VITAMIN C 500 MG PO TABS Take 1 Tablet by mouth in the morning. MULTIVITAMINS PO TABS one tab by mouth daily FISH OIL 500 MG PO CAPS Take 2 Capsules by mouth. Every 3 days. Vitamin D, Cholecalciferol, 400 UNITS CAPS Take by mouth daily. cetirizine (ZYRTEC) 10 MG Tablet Take 1 Tab by mouth daily. (Patient taking differently: Take 1Tablet by mouth daily as needed for Other (allergy symptoms).) 30 Tab 3 EPINEPHrine, anaphylaxis, (EPI-PEN) 0.3 MG/0.3ML SOAJ injection For a severe reaction: Inject in outer thigh following instructions on package and go to the Emergency room. (Patient not taking: Reported on 09/13/2022) 1 Box Dosing Unit 3 Nebulizers (NEBULIZER COMPRESSOR) MISC Inhale via nebulizer. With tubing please. Use [...] (Bactroban) Apply to the nose twice daily (Patient not taking: Reported on 08/30/2022) 22 g 4 Albuterol Sulfate HFA 108 (90 Base) MCG/ACT Inhalation Aerosol Solution Inhale by mouth 2 Puffsevery 4 hours as needed for Shortness of Breath or Wheezing. 18 g 5 Mepolizumab 100 MG/ML Subcutaneous Solution Auto-injector INJECT 1 ML UNDER THE SKIN EVERY 4 WEEKS (Patient taking differently: No sig reported) 1 mL 11 Metoprolol Succinate ER 100 MG Oral Tablet Extended Release 24 Hour (toPROL XL) One tablet by mouth 2 times per day 180 Tablet 3 Amiodarone HCl 200 MG Oral Tablet (Cordarone) Take 1 Tablet by mouth in the morning and 1 Tablet before bedtime. 60 Tablet 2 oxyCODONE-Acetaminophen 5-325 MG Oral Tablet Take 1 Tablet by mouth every 8 hours as needed forOther (headache). On backorder at pharmacy, has not started taking yet. 08/30/22. Fluocinolone Acetonide Scalp 0.01 % External Oil Apply to scalp once weekly over night as directed 118.28 mL 0 Dulaglutide 4.5 MG/0.5ML Subcutaneous Solution Pen-injector ([employer]) INJECT 4.5 MG UNDER THESKIN ONCE WEEKLY 6 mL 1 Ciclopirox 8 % External Solution APPLY OVER [...] TABLET BY MOUTH TWICE A DAY WITH MORNINGAND EVENING MEALS (Patient taking differently: Take 1 Tablet by mouth 2 times a day with morning and evening meals.) 180 Tablet 2 Atorvastatin Calcium 40 MG Oral Tablet (Lipitor) TAKE ONE TABLET BY MOUTH EVERY MORNING (Patient taking differently: Take 1 Tablet by mouth at bedtime.) 100 Tablet 3 buPROPion HCl ER (XL) 300 MG Oral Tablet Extended Release 24 Hour (Wellbutrin XL) TAKE ONE TABLET BY MOUTH EVERY DAY IN THE MORNING 90 Tablet 1 Gabapentin 100 MG Oral Capsule (Neurontin) Take 1 Capsule by mouth in the morning and 1 Capsulein the evening. 60 Capsule 1 No current facility-administered medications for this visit. Nursing Notes: Sujatha Cardenas LPN 10/07/22 1052 Signed 67 yo female presents with left great toe redness/pain x 1 days. Took tylenol EXAM: BP 130/70 | Pulse 70 | Temp 36.8 C (98.2 F) (Tympanic) | Resp 16 | Wt 107 kg (236 lb) | LMP 11/06/2006 | SpO2 97% | BMI 38.38 kg/m | BSA 2.23 m GENERAL: alert, healthy, no distress, well nourished and well developed HEAD: Normocephalic, atraumatic EYES: PERRL, EOMI, Conjunctiva are pink and non-injected, sclera clear EXT: L foot-- L great MCP: + erythema, warmth, tenderness, mild swelling, decreased ROM secondary to pain, NVI, cap refill <2s SKIN: skin color, texture, turgor are normal, no rashes or significant lesions NEURO: alert & oriented x 3 with fluent speech, no focal motor/sensory deficits ASSESSMENT/PLAN Gouty arthritis of left great toe (Primary) - predniSONE 10 MG Oral Tablet (Deltasone); Take 5 tabs for 2 days, 4 tabs for 2 days, 3 tabs for 2days, 2 tabs for 2 days 1 tab for 2 days Atopic dermatitis of scalp - Clobetasol Propionate 0.05 % External Solution; Apply topically to affected area 2 times a day. To use to scalp for up to two weeks. Patient Instructions Practice RICE (Rest, Ice, Compression, Elevation) to affected area. Be sure to finish entire course of prednisone even if you are feeling better. Be aware of possible side effects of prednisone as discussed (increased appetite, weight gain, hyperglycemia, insomnia, dizziness). Do not take NSAIDs while taking prednisone (Ibuprofen, Naproxen), ok to use Tylenol for pain control, as well. With no improvement in 4-5 days F/U with PCP, sooner if worse. With any acute change or new symptoms go to the ED. FOLLOW UP: Patient instructed to follow up with Primary Care Provider if no better in 5-7 days and immediately if signs and symptoms worsen. Go to ED for acutely worsening symptoms. Jimmy Ruiz PA-C [place] [id number] documented in this encounter Nursing Notes * Sujatha Cardenas LPN - 10/07/2022 10:45 AM EDT 67 yo female presents with left great toe redness/pain x 1 days. Took tylenol documented in this encounter Miscellaneous Notes * Pt Handout (on AVS) - Jimmy Ruiz PA-C - 10/07/2022 11:01 AM EDT Images from the original note were not included. [id number] What is Gout? Gout is a disease that affects the joints. If not treated, it can lead to painful foot and joint deformities. It may lead to kidney problems. But, by treating gout early, you can ease pain and help prevent future problems. Gout can usually be treated with medicine and a change in diet. In severe cases, surgery may be needed. What causes gout? Gout is caused by too much uric acid . This is a waste product made by the body. Uric acid is excreted by the kidneys. If the uric acid level in your blood rises too high, it may form crystals. Thesecollect in the joints. This brings on a gout attack. A gout attack is inflammation in the joints that can cause sudden pain and swelling. If you have many gout attacks, crystals may form large deposits called tophi. Tophi can damage joints and cause deformity. Who's at risk for gout? We understand gender is a spectrum. We may use gendered terms to talk about anatomy and health risk. Please use this information in a way that works best for you and your provider as you talk about your care. Men are more likely to have gout than women. Women may have gout, but more often after menopause. Some health problems make gout more likely. These include obesity and high cholesterol. And some medicines can trigger a gout attack. These include water pills (diuretics). People who drink a lot of alcohol are at high risk for gout. Some foods can trigger a gout attack. Things that may trigger a gout attack Alcohol, especially beer, but also red wine and spirits Some meats such as red meat, processed meat, turkey Organ meats such as kidney, liver, sweetbread Shellfish such as lobster, crab, shrimp, scallops, mussels Some fish such as anchovies, sardines, trinh, mackerel Treatment Make lifestyle changes. These include weight loss, exercise, and quitting tobacco use. Limit certain foods and drinks. Reduce your intake of the foods and drinks listed above that maytrigger a gout attack. Don't eat or drink things with high fructose corn syrup. This is found in many foods. It's in some sodas and energy drinks. Ask about your medicines. Some medicines may contribute to gout. This includes diuretics. Talk to your provider about other options. Try medicines to reduce the amount of uric acid in the blood. These include allopurinol, probenecid, febuxostat, and lesinurad. Take medicines to treat sudden gout attacks. These include NSAIDs (nonsteroidal anti-inflammatory drugs), steroids, and colchicine. Last Reviewed Date: 12/01/202019998123-9449 [employer]. All rights reserved. This information is not intended as a substitute for professional medical care. Always follow your healthcare professional's instructions. * Pt Handout (on AVS) - Jimmy Ruiz PA-C - 10/07/2022 11:01 AM EDT [id number] Eating to Prevent Gout Gout is a painful form of arthritis caused by an excess of uric acid. This is a waste product made by the body. It builds up in the body and forms crystals that collect in the joints, causing a gout attack. Alcohol and certain foods can trigger a gout attack. Below are some guidelines for changing your diet to help you manage gout. Your healthcare provider or a flight operations dispatch clerk can work with you to determine the best eating plan for you. You can learn which foods affect your gout more than others. Reactions to different foods can varyfrom person to person. Know that diet is only one part of managing gout. Take your medicines as prescribed and follow the other guidelines your healthcare provider has given you. Foods to limit Eating too many foods containing purines may increase the levels of uric acid in your body and increase your risk for a gout attack. It may be best to limit these high-purine foods: Alcohol (beer, hard liquor, and red wine). You may be told to give up alcohol completely. Certain fish (anchovies, sardines, fish roes, trinh, tuna, mussels, codfish, scallops, trout, and cisco) Certain meats (red meat, processed meat, dang, turkey, wild game, and goose) Sauces and gravies made with meat Organ meats (such as liver, kidneys, sweetbreads, and tripe) Yeast and yeast extract supplements Foods to try Some foods may be helpful for people with gout. You may want to try adding some of the following foods to your diet: Yost/Yost Extract. Cherries and yost extract contain chemicals that may lower uric acid. [place] fatty acids. These acids are found in fatty fish (such as salmon), certain oils (such as flax, olive, or nut oils), and nuts. They may help prevent inflammation due to gout. Low-fat dairy. Low-fat milk or dairy foods may reduce uric acid levels. Last Reviewed Date: 01/31/202219990550-3497 [employer]. All rights reserved. This information is not intended as a substitute for professional medical care. Always follow your healthcare professional's instructions. * Pt Handout (on AVS) - Jimmy Ruiz PA-C - 10/07/2022 11:00 AM EDT [id number] Gout Diet Gout is a painful condition caused by an excess of uric acid, a waste product made by the body. Uric acid forms crystals that collect in the joints. The immune response to these crystals brings on symptoms of joint pain and swelling. This is called a gout attack. Often, medicines and diet changes are combined to manage gout. Below are some guidelines for changing your diet to help you manage goutand prevent attacks. Your healthcare provider will help you determine the best eating plan for you. Eating to manage gout Weight loss for those who are overweight may help reduce gout attacks. Eat less of these foods Eating too many foods containing purines may raise the levels of uric acid in your body. This raises your risk for a gout attack. Try to limit these foods and drinks: Alcohol, such as beer and red wine. You may be told to avoid alcohol completely. Soft drinks that contain sugar or high fructose corn syrup Certain fish, including anchovies, sardines, fish eggs, and trinh Shellfish Certain meats, such as red meat, hot dogs, luncheon meats, and turkey Organ meats, such as liver, kidneys, and sweetbreads Legumes, such as dried beans and peas Other high fat foods such as gravy, whole milk, and high fat cheeses Vegetables such as asparagus, cauliflower, spinach, and mushrooms used to be thought to contribute to an increased risk for a gout attack, but recent studies show that high purine vegetables don'tincrease the risk for a gout attack. Eat more of these foods Other foods may be helpful for people with gout. Add some of these foods to your diet: Cherries contain chemicals that may lower uric acid. [place] fatty acids. These are found in some fatty fish such as salmon, certain oils (flax, olive,or nut), and nuts themselves. [place] fatty acids may help prevent inflammation due to gout. Dairy products that are low-fat or fat-free, such as cheese and yogurt Complex carbohydrate foods, including whole grains, brown rice, oats, and beans Coffee, in moderation Water, approximately 64 ounces per day Follow-up care Follow up with your healthcare provider as advised. When to get medical advice Call your healthcare provider right away if any of these occur: Return of gout symptoms, usually at night Severe pain, swelling, and heat in a joint, especially the base of the big toe Affected joint is hard to move Skin of the affected joint is purple or red Fever of 100.4F (38C) or higher, or as advised by your provider Pain that doesn't get better even with prescribed medicine Last Reviewed Date: 04/03/202119992878-2893 [employer]. All rights reserved. This information is not intended as a substitute for professional medical care. Always follow your healthcare professional's instructions. documented in this encounter Plan of Treatment Upcoming Encounters Date Type Specialty Care Team Description 11/01/2022 Office Visit Family Medicine Luz Morales CRNP [address] [place] [id number] 11/21/2022 Imaging Radiology 11/27/2022 Office Visit Gastroenterology Yumiko Gonzalez CRNP [address] [place] [address] 12/23/2022 Office Visit Cardiology Rodo Romero DO [address] [place] [address] 12/24/2022 Office Visit Neurology Harsha Wright DO [address] [facility], [place] [address] 06/17/2023 Office Visit Sleep Disorders Ariana Beltran, DO [address] [place] [id number] Scheduled Procedures Name Priority Associated Diagnoses Date/Ti [...] 01/17/2005 LUNG CANCER SCREENING - USE SMARTSET 98290 Completed 07/19/2022, 07/06/2021, 04/11/2020, Additional history exists GARDASIL-HPV IMMUNIZATION SERIES Aged Out No longer eligible based on patient's age to complete this topic Hepatitis B Aged Out No longer eligi ble based on patient's age to complete this topic documented as of this encounter Medical Devices Implanted Type Area Oil Well Directional Surveyor Device Identifier Shelf Expiration Date Model / Serial / Lot Wire Mailman - [id number] Implanted:Qty: 1 on 06/24/2022 by Natalie Sheffield IV, MD at [facility] [employer] : [place] IV [id number] 12/13/2023 [id number] documented as of this encounter Visit Diagnoses Diagnosis Gouty arthritis of left great toe- Primary Atopic dermatitis of scalp documented in this encounter Advance Directives Latest [...] the patient have Health Care Power of Contact Worker? No Healthcare Agents on File Name Relationship Healthcare Agent Relationshi p Communication Enid Patel Adult Child Health Care Repr esentative (appointed verbally by patient or by statute hierarchy) Care Teams Package Sorter Relationship Specialty Start Date End Date Luz Morales CRNP [address] [place] [id number] PCP - General Nurse Practitioner 09/27/20 documented as of this encounter"
--- OUTSIDE RECORDS SUMMARY | 2023-01-23 19:37 | External Medical Summary | Summary of Care ---
Author Name Unknown Organization [facility] Address [address] [place] [address] Phone [phone] Care Team Providers Care Filter Changing Technician Name Role Phone Luz Morales Primary Care Provider Encounter Details Date Type Department Care Team Description 11/07/2022 Orders Only Family Practice [facility] [address] [place] [address] Luz Morales [facility] [address] [facility] [place] [address] Allergies Active Allergy Reactions Severity Noted Date Comments Erythromycin Rash 12/14/1999 Ibuprofen Rash 08/05/2011 Latex Rash 03/20/2007 Latex High 07/24/2022 Other reaction(s): RASH Sulfa Antibiotics Rash 12/14/1999 documented as of this encounter (statuses as of 11/07/2022) Medications Medication Sig Dispensed Refills Start Date [...] 4 Active Apixaban 5 MG Oral Tablet (Eliquis)Davidtio ns:Persistent atrial fibrillation (HCC) TAKE ONE TABLET [...] 07/19/2022 Atorvastatin Calcium 40 MG Oral Tablet (Lipitor)Davidtio ns:Dyslipidemia, goal LDL below 100 TAKE ONE [...] as of this encounter (statuses as of 11/07/2022) Active Problems Problem Noted Date Cerebrovascular accident (CV A) due to embolism of right middle cerebral artery 11/01/2022 Need for prophylactic vaccination and in oculation against influenza 11/01/2022 Atherosclerosis of [place] coronary arter y without angina pectoris 11/01/2022 [...] as of this encounter (statuses as of 11/07/2022) Resolved Problems Problem Noted Date Resolved Date [...] as of this encounter (statuses as of 11/07/2022) Immunizations Name Administration Dates Next Due COVID-19 mRNA, LNP-s, No Pre serve, 2-Dose Series (Embedster) 12/13/2020,05/30/2020,05/02/2020 COVID-19, LNP-s, No Preserve , Keith-sucrose, Ages 12+ (Pfizer) 07/04/2021 Pneumococcal Conjugate Vacci ne, 20-valent ([id number]) 02/13/2022 Pneumococcal Polysaccharide PPV23 (Pneumovax) 02/05/2020 Season [...] Gonzalez CRNP [address] [place] [address] 12/23/2022 Office Visit Cardiology Rodo Romero, DO [address] [place] [address] 12/24/2022 Office Visit Neurology Harsha Wright, DO [address] [place] [address] 01/31/2023 Office Visit Family Medicine Luz Morales CRNP [address] [place] [address] 06/17/2023 Office Visit Sleep Disorders Ariana Beltran, [address] [place] [address] Scheduled Procedures Name Priority Associated Diagnoses Date/Ti [...] 01/17/2005 LUNG CANCER SCREENING - USE SMARTSET [id number] Completed 07/19/2022, 07/06/2021, 04/11/2020, Additional history exists Influenza Vaccine (FLU shot) Completed 03/2022, 01/11/2022, 01/12/2021, Additional history exists GARDASIL-HPV IMMUNIZATION SERIES Aged Out No longer eligible based on patient's age to complete this topic Hepatitis B Aged Out No longer eligi ble based on patient's age to complete this topic documented as of this encounter Medical Devices Implanted Type Area Single End Sewer Device Identifier Shelf Expiration Date Model / Serial / Lot Wire Mailman - [id number] Implanted:Qty: 1 on 06/24/2022 by Natalie Sheffield IV, MD at [facility] [employer] : DONNA MAHAJAN [id number] 12/13/2023 [id number] documented as of this encounter Advance Directives [...] the patient have Health Care Power of Shaker Out? No Healthcare Agents on File Name Relationship Healthcare Agent Relationshi p Communication Enid Patel Adult Child Health Care Repr esentative (appointed verbally by patient or by statute hierarchy) Care Teams Filter Changing Technician Relationship Specialty Start Date End Date Luz Morales CRNP [address] [place] [id number] PCP - General Nurse Practitioner 09/27/20 documented as of this encounter
--- OUTSIDE RECORDS SUMMARY | 2023-01-23 19:37 | External Medical Summary | Summary of Care ---
Author Name Unknown Organization [facility] Address [address] [place] [address] Phone [phone] Care Team Providers Care Architect Internship Name Role Phone Luz Morales Primary Care Provider Reason for Visit * Reason Comments Follow Up Patient presents in office today for a 3m follow-up visit. Encounter Details Date Type Department Care Team Description 11/01/2022 Office Visit Family Practice [facility] [address] [facility] [place] [address] [facility] [address] [facility] [address] Cerebrovascular accident (CVA) due to embolism of right middle cerebral artery (HCC)*; Type 2 diabetes mellitus with hemoglobin A1c goal of less than 8.0% (HCC); Asthma-COPD overlap syndrome (HCC); Need for prophylactic vaccination and inoculation against influenza; Atherosclerosis of [place] coronary artery without angina pectoris, unspecified whether [place] or transplanted heart; Migraine without aura and without status migrainosus, not intractable; Persistent atrial fibrillation (HCC); Depression with anxiety Allergies Active Allergy Reactions Severity Noted Date Comments Erythromycin Rash 12/14/1999 Ibuprofen Rash 08/05/2011 Latex Rash 03/20/2007 Latex High 07/24/2022 Other reaction(s): RASH Sulfa Antibiotics Rash 12/14/1999 documented as of this encounter (statuses as of 11/01/2022) Medications Medication Sig Dispensed Refills Start Date [...] Tab by mouth daily. 30 Tab 3 8 Active Additional Information Patient taking differently:10 mg OralDAILY PRN, Other, allergy symptoms, Indications: allergies, Informant: At Discharge, Reported on 08/30/2022 EPINEPHrine, anaphylaxis, (EPI-PEN) 0.3 MG/0.3ML SOAJ injection For a severe reaction: Inject in outer thigh following instructions on package and go to the Emergency room. 1 Box Dosing Unit 3 9 Active Additional Information Patient not taking.Reported on 09/13/2022 Nebulizers (NEBULIZER COMPRESSOR) MISCIndications: COPD, mild (HCC),MCCARTNEY (dyspnea on exertion),Severe persistent asthma, unspecified whether complicated Inhale via nebulizer. With tubing please. Use as directed. Lifetime need. 1 Each 1 9 Active levalbuterol (XOPENEX) 1.25 MG/3ML nebulizer solution Inhale 3 mL via nebulizer every 8 hours as needed for Wheezing. 3 mL 11 0 Active Calcium Carbonate 600 MG Oral Tablet Take 1 Tablet by mouth in the morning. 0 Active CPAP every night at bedtime. Auto pap 5-20 cm at bedtime 0 Active Diclofenac Sodium 1 % External Gel (Voltaren) Apply topically to affected area daily. Apply to HANDS DAILY 350 g 1 1 Active Additional Information Patient taking differently:TopicalDAILY PRN, Pain, Apply to HANDS DAILY, Informant: At Discharge, Reported on 08/30/2022 Mupirocin 2 % External Ointment (Bactroban) Apply to the nose twice daily 22 g 4 1 Active Mepolizumab 100 MG/ML Subcutaneous Solution Auto-injectorInd ications:Severe persistent asthma without complication,All ergic eosinophilia INJECT 1 ML UNDER THE SKIN EVERY 4 WEEKS 1 mL 11 3 04/22/19 24 Active Additional Information Patient taking differently: Indications: allergies, Reported on 07/19/2022 Metoprolol Succinate ER 100 MG Oral Tablet Extended Release 24 Hour (toPROL XL) One tablet by mouth 2 times per day 180 Tablet 3 3 Active Amiodarone HCl 200 MG Oral Tablet (Cordarone) Take 1 Tablet by mouth in the morning and 1 Tablet before bedtime. 60 Tablet 2 3 Active oxyCODONE-Acetam inophen 5-325 MG Oral Tablet Take 1 Tablet by mouth every 8 hours as needed for Other (headache). On backorder at pharmacy, has not started taking yet. 08/30/22. 0 Active Fluocinolone Acetonide Scalp 0.01 % External Oil Apply to scalp once weekly over night as directed 118.28 mL 0 3 Active Ciclopirox 8 % External Solution APPLY OVER NAIL AND SURROUNDING SKIN, APPLY DAILY OVER PREVIOUS COAT. AFTER 7 DAYS, MAY REMOVE WITH ALCOHOL AND CONTINUE CYCLE. 19.8 mL 1 3 08/01/19 24 Active Apixaban 5 MG Oral Tablet (Eliquis)Indicat ions:Persistent atrial fibrillation (HCC) TAKE ONE TABLET BY MOUTH IN THE MORNING AND ONE TABLET BEFORE BEDTIME 180 Tablet 3 3 07/08/19 24 Active Losartan Potassium 50 MG Oral Tablet (Cozaar)Indicati ons:HTN, goal below 140/90,Persisten t atrial fibrillation (HCC) TAKE ONE TABLET BY MOUTH EVERY MORNING 90 Tablet 3 3 07/01/19 24 Active Additional Information Patient taking differently: Indications: BP, Reported on 07/19/2022 Montelukast Sodium 10 MG Oral Tablet (Singulair) TAKE ONE TABLET BY MOUTH IN THE MORNING 90 Tablet 3 3 05/16/19 24 Active Additional Information Patient taking differently:10 mg OralHS, Indications: allergies, Informant: At Discharge, Reported on 08/30/2022 metFORMIN HCl 500 MG Oral Tablet (Glucophage) TAKE ONE TABLET BY MOUTH TWICE A DAY WITH MORNING AND EVENING MEALS 180 Tablet 2 3 05/04/19 24 Active Additional Information Patient taking differently:500 mg Oral BID (AM/PM MEALS),Indications: diabetes, Reported on 07/19/2022 Atorvastatin Calcium 40 MG Oral Tablet (Lipitor)Indicat ions:Dyslipidemi a, goal LDL below 100 TAKE ONE TABLET BY MOUTH EVERY MORNING 100 Tablet 3 3 05/03/19 24 Active Additional Information Patient taking differently:40 mg OralHS, Informant: At Discharge, Reported on 08/30/2022 buPROPion HCl ER (XL) 300 MG Oral Tablet Extended Release 24 Hour (Wellbutrin XL) TAKE ONE TABLET BY MOUTH EVERY DAY IN THE MORNING 90 Tablet 1 3 04/08/19 24 Active Gabapentin 100 MG Oral Capsule (Neurontin)Indic ations:Migraine without aura and without status migrainosus, not intractable,Acut e ischemic right MCA stroke (HCC),Memory loss Take 1 Capsule by mouth in the morning and 1 Capsule in the evening. 60 Capsule 1 3 Active Clobetasol Propionate 0.05 % External SolutionIndicati ons:Atopic dermatitis of scalp Apply topically to affected area 2 times a day. To use to scalp for up to two weeks. 50 mL 1 3 Active Albuterol Sulfate HFA 108 (90 Base) MCG/ACT Inhalation Aerosol Solution Inhale 2 Puffs by mouth every 4 hours as needed for Shortness of Breath or Wheezing. 18 g 5 3 Active Trelegy Ellipta 200-62.5-25 MCG/ACT Aerosol Powder Breath Activated (Fluticasone-Ume clidinium-Vilant bo) Inhale 1 Puff by mouth in the morning. 90 Blister Dosing Unit 3 3 Active Mounjaro 2.5 MG/0.5ML Subcutaneous Solution Pen-injector (Tirzepatide) Inject 2.5 mg under the skin once a week for 30 days, THEN 5 mg once a week. 6 mL 0 3 01/01/20 23 Active Dulaglutide 4.5 MG/0.5ML Subcutaneous Solution Pen-injector (Trulicity)Indic ations:Type 2 diabetes mellitus without complication, without long-term current use of insulin (HCC) INJECT 4.5 MG UNDER THE SKIN ONCE WEEKLY 6 mL 1 3 11/02/19 23 Discontinued predniSONE 10 MG Oral Tablet (Deltasone)Indic ations:Gouty arthritis of left great toe Take 5 tabs for 2 days, 4 tabs for 2 days, 3 tabs for 2 days, 2 tabs for 2 days 1 tab for 2 days 30 Tablet 0 3 11/02/19 23 Discontinued(Mo dication List Clean Up) documented as of this encounter (statuses as of 11/01/2022) Active Problems Problem Noted Date Cerebrovascular accident (CV A) due to embolism of right middle cerebral artery 11/01/2022 Need for prophylactic vaccination and in oculation against influenza 11/01/2022 Atherosclerosis of [place] coronary arter y without angina pectoris 11/01/2022 [...] as of this encounter (statuses as of 11/01/2022) Resolved Problems Problem Noted Date Resolved Date [...] as of this encounter (statuses as of 11/01/2022) Immunizations Name Administration Dates Next Due COVID-19 mRNA, LNP-s, No Pre serve, 2-Dose Series (Pfizer) 12/13/2020,05/30/2020,05/02/2020 COVID-19, LNP-s, No Preserve , Keith-sucrose, Ages 12+ (Pfizer) 07/04/2021 Pneumococcal Conjugate Vacci ne, 20-valent ([id number]) 02/13/2022 Pneumococcal Polysaccharide PPV23 (Pneumovax) 02/05/2020 Season [...] Sign Reading Time Taken Comments Blood Pressure 124/78 11/01/2022 12:53 PM EDT Pulse 70 11/01/2022 12:53 PM EDT Temperature - - Respiratory Rate 20 11/01/2022 12:5 3 PM EDT Oxygen Saturation - - Inhaled Oxygen Concentration - - Weight 105.1 kg (231 lb 9.6 oz) 023 12:53 PM EDT Height 167 cm (5' 5.75") 11/01/2022 12: 53 PM EDT Body Mass Index 37.67 11/01/2022 12:53 PM EDT documented in this [...] as of this encounter Progress Notes * Leidy Mcallister, MED ASSIST - 11/01/2022 1:39 PM EDT Pre-Administration Time Out Procedure Performed: Yes Patient Identified (Ask Name/Date of ): Yes Does the patient have a fever greater than 101 degrees today? No Patient allergic to latex? No Has the patient ever fainted after receiving an injection? No VFC Stock: No Immunization(s) verified: Yes, Immunization Name: Flu, VIS Sheet(s) given: Yes Verified Side and Site: Yes Verified Shot(s) with Parent(s)/Patient: Yes * Luz Kearney DONNA Morales - 11/01/2022 1:01 PM EDT Follow up Family Medicine Visit CC: Chief Complaint Patient presents with Follow Up Patient presents in office today for a 3m follow-up visit. History of Present Illness: Kimberly Hernandez is a 67 year old female presenting for follow up. DM: Denies low blood sugars. Last A1C stable. CVA in August. Saw neuro. She has increased memory. Balance changes. Denies weakness. She is going toPT. No noticeable Still has left hand numbness. . Feels mood is depressed since CVA. Denies si/hi. Deneis driving difficulty Asthma/COPD- she is using trelegy daily. Used albuterol hfa more but better this week. Missed nucala x 2 months. She has restarted with improved control of asthma. 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 [employer] Employer: [employer] Comment: [employer] Tobacco Use Smoking status: Former Packs/day: 0.50 Years: 40.00 Pack years: 20.00 Types: Cigarettes Quit date: 01/26/2015 Years since quittin.7 Smokeless tobacco: Never Vaping Use Vaping Use: Never used Substance and Sexual Activity Alcohol use: Yes Comment: rarely Drug use: No Sexual activity: Yes Partners: Male control/protection: Condom Other Topics Concern Service No Blood Transfusions No Caffeine Concern Not Asked Occupational Exposure Not Asked Hobby Hazards Not Asked Sleep Concern Not Asked Stress Concern Not Asked Weight Concern Not Asked Special Diet Not Asked Back Care Not Asked Exercise Not Asked Bike Helmet Not Asked Seat Belt Yes Self-Exams Not Asked Social History Narrative born in [facility] Social Determinants of Health Financial Resource Strain: Not on file Food Insecurity: No Food Insecurity Worried About Running Out of Food in the Last Year: Never true Ran Out of Food in the Last Year: Never true Transportation Needs: Not on file Physical Activity: Not on file Stress: Not on file Social Connections: Not on file Intimate Partner Violence: Not on file Housing Stability: Not on file PMH: Past Medical History: Diagnosis Date ACUTE OR [...] 03/28/2017 OSTEOARTHROS NOS-HAND 03/30/2007 Sleep apnea, obstructive Past Surgical History: Procedure Laterality Date APPENDECTOMY W/OTHER PROCEDURE age 29 BREAST BIOPSY Right 04/29/2002 Benign COLONOSCOPY, DIAGNOSTIC (RECTUM) 03/20/2007 repeat in 10 years COLONOSCOPY, DIAGNOSTIC (RECTUM) 03/30/2019 diverticulosis sigmoid colon/biopsies show adenomatous polyps/recall 5 years/COLONOSCOPY FLEXIBLE PROXIMAL DIAGNOSTIC performed by Nancy Moreno DO at ENDOSCOPY [facility] EGD, FLEXIBLE,W/ENDOSCOPIC US 04/19/2022 reflux esophagitis, GB sludge / [facility] ELECTROPHYSIOLOGY EVAL, ATRIAL FIB, PULMONARY VEIN ISOL Bilateral 03/10/2018 ELECTROPHYSIOLOGY EVAL, ATRIAL FIB, PULMONARY VEIN ISOL performed by David Bains MD at [facility] ELECTROPHYSIOLOGY EVAL, ATRIAL FIB, PULMONARY VEIN ISOL Bilateral 06/24/2022 PVI RADIOFREQUENCY CATHETER ABLATION performed by Natalie Sheffield IV, MD at [facility] LAP,ABDOMEN W/ASPIRATE age 29 ovarian cyst Outpatient Medications Marked as Taking for the 11/01/22 encounter (Office Visit) with DONNA Benavides Medication Sig Albuterol Sulfate HFA 108 (90 Base) MCG/ACT Inhalation Aerosol Solution Inhale 2 Puffs by mouth every 4 hours as needed for Shortness of Breath or Wheezing. Clobetasol Propionate 0.05 % External Solution Apply topically to affected area 2 times a day. To use to scalp for up to two weeks. Gabapentin 100 MG Oral Capsule (Neurontin) Take 1 Capsule by mouth in the morning and 1 Capsule in the evening. Fluocinolone Acetonide Scalp 0.01 % External Oil Apply to scalp once weekly over night as directed Dulaglutide 4.5 MG/0.5ML Subcutaneous Solution Pen-injector (GeneTex) INJECT 4.5 MG UNDER THE SKIN ONCE WEEKLY Amiodarone HCl 200 MG Oral Tablet (Cordarone) Take 1 Tablet by mouth in the morning and 1 Tablet before bedtime. Ciclopirox 8 % External Solution APPLY OVER NAIL AND SURROUNDING SKIN, APPLY DAILY OVER PREVIOUS COAT. AFTER 7 DAYS, MAY REMOVE WITH ALCOHOL AND CONTINUE CYCLE. Metoprolol Succinate ER 100 MG Oral Tablet Extended Release 24 Hour (toPROL XL) One tablet by mouth2 times per day Apixaban 5 MG Oral Tablet (Eliquis) TAKE ONE TABLET BY MOUTH IN THE MORNING AND ONE TABLET BEFORE BEDTIME Losartan Potassium 50 MG Oral Tablet (Cozaar) TAKE ONE TABLET BY MOUTH EVERY MORNING (Patient taking differently: No sig reported) Montelukast Sodium 10 MG Oral Tablet (Singulair) TAKE ONE TABLET BY MOUTH IN THE MORNING (Patient taking differently: Take 1 Tablet by mouth at bedtime.) metFORMIN HCl 500 MG Oral Tablet (Glucophage) TAKE ONE TABLET BY MOUTH TWICE A DAY WITH MORNING ANDEVENING MEALS (Patient taking differently: Take 1 Tablet by mouth 2 times a day with morning and evening meals.) Atorvastatin Calcium 40 MG Oral Tablet (Lipitor) TAKE ONE TABLET BY MOUTH EVERY MORNING (Patient taking differently: Take 1 Tablet by mouth at bedtime.) Mepolizumab 100 MG/ML Subcutaneous Solution Auto-injector INJECT 1 ML UNDER THE SKIN EVERY 4 WEEKS (Patient taking differently: No sig reported) buPROPion HCl ER (XL) 300 MG Oral Tablet Extended Release 24 Hour (Wellbutrin XL) TAKE ONE TABLET BY MOUTH EVERY DAY IN THE MORNING Mupirocin 2 % External Ointment (Bactroban) Apply to the nose twice daily Diclofenac Sodium 1 % External Gel (Voltaren) Apply topically to affected area daily. Apply to HANDS DAILY (Patient taking differently: Apply topically to affected area daily as needed for Pain. Apply to HANDS DAILY) CPAP every night at bedtime. Auto pap 5-20 cm at bedtime Calcium Carbonate 600 MG Oral Tablet Take 1 Tablet by mouth in the morning. levalbuterol (XOPENEX) 1.25 MG/3ML nebulizer solution Inhale 3 mL via nebulizer every 8 hours as needed for Wheezing. Nebulizers (NEBULIZER COMPRESSOR) MISC Inhale via nebulizer. With tubing please. Use as directed. Lifetime need. cetirizine (ZYRTEC) 10 MG Tablet Take 1 Tab by mouth daily. (Patient taking differently: Take 1 Tablet by mouth daily as needed for Other (allergy symptoms).) Vitamin D, Cholecalciferol, 400 UNITS CAPS Take by mouth daily. FISH OIL 500 MG PO CAPS Take 2 Capsules by mouth. Every 3 days. MULTIVITAMINS PO TABS one tab by mouth daily VITAMIN C 500 MG PO TABS Take 1 Tablet by mouth in the morning. Review of patient's allergies indicates: Allergen Reactions Latex Other reaction(s): RASH Erythromycin Rash Ibuprofen Rash Latex Rash Sulfa Antibiotics Rash Most Recent Immunizations Administered Date(s) Administered COVID-19 mRNA, LNP-s, No Preserve, 2-Dose Series (Spinzo) 12/13/2020 COVID-19, LNP-s, No Preserve, Keith-sucrose, Ages 12+ (Spinzo) 07/04/2021 HEP A - Hepatitis A (Adult > 18 yrs) 03/20/2004 IPV - Polio Virus Vaccine (Inact) 03/20/2004 Meningococcal Polysaccharide Vaccine ([place]) 03/20/2004 Methylprednisolone 04/28/2008 PPD 05/25/2003 Pneumococcal Conjugate Vaccine, 20-valent ([id number]) 02/13/2022 Pneumococcal Polysaccharide PPV23 (Pneumovax) 02/05/2020 Season Influenza, Quad, PF, Adjuvanted, 65+ Yrs, IM (FLUAD) 12/20/2019 Seasonal Influenza Virus Vaccine, Unspecified Formulation 01/01/2018 Seasonal Influenza, PF, 6 mons & Above, IM , (Flulaval) 12/21/2018 Seasonal Influenza, Quadrivalent Hd (Fluzone Hd) 01/12/2021 Seasonal Influenza, Quadrivalent, No Preserve, IM 01/03/2016 Seasonal Influenza, Quadrivalent, No Preserve, Mdck 12/17/2017 Seasonal Influenza, Split, IIV3, With Preserve, Inj 01/26/2014 TD - Tetanus/Diptheria (ADULT) 08/01/2009 TDAP (age 10 and older)(Boostrix) 06/06/2015 Typhoid Oral 03/20/2004 Zoster Vaccine Recombinant (Shingrix) 08/27/2019 Review of Systems: Review of Systems Constitutional: Positive for fatigue. Respiratory: Positive for shortness of breath. Negative for cough and wheezing. Cardiovascular: Negative for chest pain, palpitations and leg swelling. Gastrointestinal: Negative for abdominal pain, blood in stool, constipation and diarrhea. Neurological: Positive for numbness and headaches. Negative for dizziness and syncope. Left hand Psychiatric/Behavioral: Positive for dysphoric mood. Negative for sleep disturbance. The patient isnervous/anxious. Feels mood is worse since CVA Physical Exam: BP 124/78 | Pulse 70 | Resp 20 | Ht 1.67 m (5' 5.75") | Wt 105.1 kg (231 lb 9.6 oz) | LMP 11/06/2006 | BMI 37.67 kg/m | BSA 2.21 m Physical Exam Constitutional: Appearance: She is obese. HENT: Head: Normocephalic. Cardiovascular: Rate and Rhythm: Normal rate and regular rhythm. Pulmonary: Effort: Pulmonary effort is normal. Breath sounds: Normal breath sounds. Neurological: General: No focal deficit present. Mental Status: She is alert and oriented to person, place, and time. Gait: Gait is intact. Comments: AMBULATES WITH CANE Psychiatric: Mood and Affect: Mood normal. Behavior: Behavior normal. Thought Content: Thought content normal. Judgment: Judgment normal. Assessment and Plan: 1. Cerebrovascular accident (CVA) due to embolism of right middle cerebral artery (HCC) Minimal residual effects Working with PT Does have some balance disruption Ambulates with cane 2. Type 2 diabetes mellitus with hemoglobin A1c goal of less than 8.0% ([facility]) Stable Stop trulicity Add mounjaro to induce more weight loss 3. Asthma-COPD overlap syndrome (HCC) Continue trelegy Back on nucala after missing 2 months Continue albuterol hfa prn 4. Need for prophylactic vaccination and inoculation against influenza - INFLUENZA VACC, QUAD, HIGH DOSE (FLUZONE HD) 5. Atherosclerosis of [place] coronary artery without angina pectoris, unspecified whether [place] ortransplanted heart ON STATIN Managed by cardiology 6. Migraine without aura and without status migrainosus, not intractable Trial gabapentin for headaches Managed by neuro 7. Persistent atrial fibrillation (HCC) NSR today On eliquis and metoprolol 8. Depression with anxiety Increased since cva Patient prefers no med adjustment for now Consider CBT- gave her list I have advised the patient to call our office incase of any worsening or new symptoms. I spent a total of 40-54 minutes (exact time 45 mins) on the date of service in preparation, delivery, and documentation of the care provided to Kimberly Hernandez excluding any time spent in the performance of separately billed services. Lillian, MSN, DONNA [facility] documented in this encounter Nursing Notes * CARLEE Stoner - 11/01/2022 12:47 PM EDT The patient has been properly identified by confirmation of name and date of . Chief Complaint Patient presents with Follow Up Patient presents in office today for a 3m follow-up visit. documented in this encounter Plan of Treatment Upcoming Encounters Date Type Specialty Care Team Description 11/21/2022 Imaging Radiology 11/27/2022 Office Visit Gastroenterology Yumiko Gonzalez CRNP [address] [place] [id number] 12/23/2022 Office Visit Cardiology Rodo Romero, [address] [place] [address] 12/24/2022 Office Visit Neurology Harsha Wright, DO [address] [facility], [place] [address] 01/31/2023 Office Visit Family Medicine Luz Morales CRNP [address] [place] [address] 06/17/2023 Office Visit Sleep Disorders Ariana Beltran, [address] [place] [id number] Scheduled Procedures Name Priority Associated Diagnoses Date/Ti me COLONOSCOPY FLEXIBLE PROXIMA L DIAGNOSTIC Recall History of colonic polyps Health Maintenance Due Date Last Done Comments Alpha-1 Antitrypsin 1972 DIABETES-EYE EXAM 06/26/2016 06/27/2015, , 05/30/2015 Depression Screening, Annual for Pts 12 and Over 08/14/2022 08/14/2021 Mammogram 08/14/2022 08/14/2021, 11/2020, 06/10/2018, Additional history exists DIABETES-FOOT EXAM 02/13/2023 02/13/2022, [...] 01/17/2005 LUNG CANCER SCREENING - USE SMARTSET [id number] Completed 07/19/2022, 07/06/2021, 04/11/2020, Additional history exists Influenza Vaccine (FLU shot) Completed 03/2022, 01/11/2022, 01/12/2021, Additional history exists GARDASIL-HPV IMMUNIZATION SERIES Aged Out No longer eligible based on patient's age to complete this topic Hepatitis B Aged Out No longer eligi ble based on patient's age to complete this topic documented as of this encounter Medical Devices Implanted Type Area Director Clinical Research Device Identifier Shelf Expiration Date Model / Serial / Lot Wire Jairo - [id number] Implanted:Qty: 1 on 06/24/2022 by Natalie Sheffield IV, MD at [facility] [place] [id number] 12/13/2023 [id number] documented as of this encounter Visit Diagnoses Diagnosis Cerebrovascular accident (CVA) due to embolism of right middle cerebral artery (HCC)- Primary Type 2 diabetes mellitus with hemoglobin A1c goal of less than 8.0% (HCC) Asthma-COPD overlap syndrome (HCC) Need for prophylactic vaccination and inoculation against influenza Atherosclerosis of [place] coronary artery without angina pectoris, unspecified whether [place] or transplanted heart Migraine without aura and without status migrainosus, not intractable Migraine without aura, without mention of intractable migraine without mention of status migrainosus Persistent atrial fibrillation (HCC) Atrial fibrillation Depression with anxiety Dysthymic disorder documented in this encounter Advance Directives Latest [...] the patient have Health Care Power of Administrative Medical Director? No Healthcare Agents on File Name Relationship Healthcare Agent [facility] p Communication Enid Patel Adult Child Health Care Repr esentative (appointed verbally by patient or by statute hierarchy) Care Teams Architect Internship Relationship Specialty Start Date End Date Luz Morales CRNP [address] [place] [id number] PCP - General Nurse Practitioner 09/27/20 documented as of this encounter
--- OUTSIDE RECORDS SUMMARY | 2023-01-23 19:37 | External Medical Summary | Summary of Care ---
Author Name Unknown Organization [facility] Address [address] [place] [address] Phone [phone] Care Team Providers Care Pet Crematory Worker Name Role Phone Luz Morales Christel DONNA Primary Care Provider Encounter Details Date Type Department Care Team Description 11/27/[address] 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 Prescription Address: . [address] [facility] [place] [address] Rima Combs CPhT [facility] 11/27/2022,3:52 PM documented in this encounter Plan of Treatment Upcoming Encounters Date Type Specialty Care Team Description 12/23/2022 Office Visit Cardiology Rodo Romero, DO [address] [place] [address] 12/24/2022 Office Visit Neurology [facility]arsha [facility] [address] [facility] [address] 01/31/2023 Office Visit Family Medicine Luz Morales CRNP [address] [place] [address] 05/28/2023 Imaging Radiology 06/17/2023 Office Visit Sleep Disorders Ariana Beltran DO [address] [place] [address] Scheduled Procedures Name Priority Associated Diagnoses Date/Ti [...] 01/17/2005 LUNG CANCER SCREENING - USE SMARTSET 15711 Completed 07/19/2022, 07/06/2021, 04/11/2020, Additional history exists Influenza Vaccine (FLU shot) Completed 03/2022, 01/11/2022, 01/12/2021, Additional history exists GARDASIL-HPV IMMUNIZATION SERIES Aged Out No longer eligible based on patient's age to complete this topic Hepatitis B Aged Out No longer eligi ble based on patient's age to complete this topic documented as of this encounter Medical Devices Implanted Type Area Book Canvasser Device Identifier Shelf Expiration Date Model / Serial / Lot Wire [facility] - [id number] Implanted:Qty: 1 on 06/24/2022 by Natalie Sheffield IV, MD at [facility] [employer] : PERIP[place] IV [id number] 12/13/2023 [id number] documented as of this encounter Advance Directives [...] the patient have Health Care Power of Biochemistry Technician? No Healthcare Agents on File Name Relationship Healthcare Agent [facility] Communication Enid Patel Adult Child Health Care Repr esentative (appointed verbally by patient or by statute hierarchy) Care Teams Pet Crematory Worker Relationship Specialty Start Date End Date Luz Morales CRNP [address] [place] [address] PCP - General Nurse Practitioner 09/27/20 documented as of this encounter
--- OUTSIDE RECORDS SUMMARY | 2023-01-23 19:37 | External Medical Summary | Summary of Care ---
Author Name Unknown Organization [facility] Address [address] [place] [address] Phone [phone] Care Team Providers Care Dietary Aid Name Role Phone Luz Shelby Primary Care Provider Reason for Visit * Reason Comments Medication Refill Encounter Details Date Type Department Care Team Description 11/26/2022 Refill Family Practice [facility] [address] [place] [address] Luz Shelby CRNP [address] [place] [address] Allergies Active Allergy Reactions Severity Noted Date [...] 02/13/2021 Active Mepolizumab 100 MG/ML Subcutaneous Solution Auto-injectorIndi [...] Active Losartan Potassium 50 MG Oral Tablet (Cozaar)Rinao ns:HTN, goal below 140/90,Persistent atrial fibrillation (HCC) [...] 07/19/2022 Atorvastatin Calcium 40 MG Oral Tablet (Lipitor)Davidti ons:Dyslipidemia, goal LDL below 100 TAKE ONE [...] THE MORNING 90 Tablet 1 11/27/2022 Active buPROPion HCl ER (XL) 300 MG Oral Tablet Extended Release 24 Hour (Wellbutrin XL) TAKE ONE TABLET BY MOUTH EVERY DAY IN THE MORNING 90 Tablet 1 04/08/2022 3 Discontinu ed(Refill) documented as of this encounter (statuses as of 11/27/2022) Active Problems Problem Noted Date Cerebrovascular accident (CV A) due to embolism of right middle cerebral artery 11/01/2022 Need for prophylactic vaccination and in oculation against influenza 11/01/2022 Atherosclerosis of [place] coronary arter y without angina pectoris 11/01/2022 [...] mRNA, LNP-s, No Pre serve, 2-Dose Series (KienVe) 12/13/2020,05/30/2020,05/02/2020 COVID-19, LNP-s, No Preserve , Keith-sucrose, Ages 12+ (Pfizer) 07/04/2021 Pneumococcal Conjugate Vacci ne, 20-valent ([id number]) 02/13/2022 Pneumococcal Polysaccharide PPV23 (Pneumovax) 02/05/2020 Season [...] encounter Miscellaneous Notes * Telephone Encounter - Pau Medina RP - 11/27/2022 6:22 AM EDTSigned Prescriptions: Disp Refills buPROPion HCl ER (XL) 300 MG Oral Tablet E*90 Tab*1 Sig: TAKE ONE TABLET BY MOUTH EVERY DAY IN THE MORNINGAuthorizing Provider: LUZ SHELBY User: PAU MEDINA documented in this encounter Plan of Treatment Upcoming Encounters Date Type Specialty Care Team Description 11/27/2022 Office Visit Gastroenterology Yumiko Gonzalez CRNP [address] [place] [address] 12/23/2022 Office Visit Cardiology Rodo Romero DO [address] [place] [address] 12/24/2022 Office Visit Neurology Harsha Wright DO [address] [facility], [place] [address] 01/31/2023 Office Visit Family Medicine Luz Shelby CRNP [address] [place] [address] 06/17/2023 Office Visit Sleep Disorders Ariana Beltran DO [address] [place] [address] Scheduled Procedures Name Priority Associated Diagnoses Date/Ti [...] 01/17/2005 LUNG CANCER SCREENING - USE SMARTSET 64993 Completed 07/19/2022, 07/06/2021, 04/11/2020, Additional history exists Influenza Vaccine (FLU shot) Completed 03/2022, 01/11/2022, 01/12/2021, Additional history exists GARDASIL-HPV IMMUNIZATION SERIES Aged Out No longer eligible based on patient's age to complete this topic Hepatitis B Aged Out No longer eligi ble based on patient's age to complete this topic documented as of this encounter Medical Devices Implanted Type Area Actuarial Clerk Device Identifier Shelf Expiration Date Model / Serial / Lot Wire [employer] - [id number] Implanted:Qty: 1 on 06/24/2022 by Natalie Sheffield IV, MD at [facility] [employer] : [place] [id number] 12/13/2023 [id number] documented as of this encounter Advance Directives [...] the patient have Health Care Power of Salesperson Wigs? No Healthcare Agents on File Name Relationship Healthcare Agent Relationshi p Communication Enid Patel Adult Child Health Care Repr esentative (appointed verbally by patient or by statute hierarchy) Care Teams Dietary Aid Relationship Specialty Start Date End Date Luz Shelby CRNP [address] [place] [address] PCP - General Nurse Practitioner 09/27/20 documented as of this encounter
--- OUTSIDE RECORDS SUMMARY | 2023-01-23 19:37 | External Medical Summary | Summary of Care ---
Author Name Unknown Organization [facility] Address [address] [place] [address] Phone [phone] Care Team Providers Care Seafood And Service Meat Manager Name Role Phone CarmenLuz Christel THOMPSON Primary Care Provider Reason for Visit * Reason Onset Date Comments Test Results Imaging Study 11/21/2022 US of abdomen Encounter Details Date Type Department Care Team Description 11/21/2022 Telephone Gastroenterology, [facility] [address] [place] [address] Yumiko Gonzalez CRNP [address] [place] [address] Test Results Imaging Study (US of abdomen) Allergies Active Allergy Reactions Severity Noted Date Comments Erythromycin Rash 12/14/1999 Ibuprofen Rash 08/05/2011 Latex Rash 03/20/2007 Latex High 07/24/2022 Other reaction(s): RASH Sulfa Antibiotics Rash 12/14/1999 documented as of this encounter (statuses as of 11/28/2022) Medications Medication Sig Dispensed Refills Start Date [...] as of this encounter (statuses as of 11/28/2022) Active Problems Problem Noted Date Cerebrovascular accident (CV A) due to embolism of right middle cerebral artery 11/01/2022 Need for prophylactic vaccination and in oculation against influenza 11/01/2022 Atherosclerosis of [place] coronary arter y without angina pectoris 11/01/2022 [...] as of this encounter (statuses as of 11/28/2022) Resolved Problems Problem Noted Date Resolved Date [...] as of this encounter (statuses as of 11/28/2022) Immunizations Name Administration Dates Next Due COVID-19 mRNA, LNP-s, No Pre serve, 2-Dose Series (Habitissimo) 12/13/2020,05/30/2020,05/02/2020 COVID-19, LNP-s, No Preserve , Keith-sucrose, Ages 12+ (Pfizer) 07/04/2021 Pneumococcal Conjugate Vacci ne, 20-valent ([id number]) 02/13/2022 Pneumococcal Polysaccharide PPV23 (Pneumovax) 02/05/2020 Season [...] encounter Miscellaneous Notes * Telephone Encounter - Tana Stallworth RN - 11/28/2022 3:01 PM EDT Called and spoke to patient. She is aware of results. * Telephone Encounter - Kadi Stoner RN - 11/26/2022 3:50 PM EDT I left a message for the patient to return my call. * Telephone Encounter - Pita Quigley RN - 11/21/2022 2:10 PM EDT Attempted to call pt and left message to return call ----- Message from DONNA Buck sent at 11/21/2022 1:31 PM EDT ----- Please let her know I reviewed abd us Some fatty liver Otherwise no scarring and no focal hepatic mass. The biliary tract is within normal limits with the CBD measuring 7 mm. The gallbladder appears normal The imaged portions of the pancreas are unremarkable. The right kidney measures 12.5 cm in length and contains a 0.8 cm lower pole cyst. IMPRESSION Mild hepatic steatosis. No new orders needed. DONNA Mukherjee 11/21/2022 1:30 PM documented in this encounter Plan of Treatment Upcoming Encounters Date Type Specialty Care Team Description 12/23/2022 Office Visit Cardiology Rodo Romeor DO [address] [place] [address] 12/24/2022 Office Visit Neurology Harsha Wright DO [address] [facility] [place] [address] 01/31/2023 Office Visit Family Medicine Luz Morales CRNP [address] [place] [address] 05/28/2023 Imaging Radiology 06/17/2023 Office Visit Sleep Disorders Ariana Beltran DO [address] [place] [address] Scheduled Procedures Name Priority Associated Diagnoses Date/Ti [...] 01/17/2005 LUNG CANCER SCREENING - USE SMARTSET 24371 Completed 07/19/2022, 07/06/2021, 04/11/2020, Additional history exists Influenza Vaccine (FLU shot) Completed 03/2022, 01/11/2022, 01/12/2021, Additional history exists GARDASIL-HPV IMMUNIZATION SERIES Aged Out No longer eligible based on patient's age to complete this topic Hepatitis B Aged Out No longer eligi ble based on patient's age to complete this topic documented as of this encounter Medical Devices Implanted Type Area Air Intercept Controller Supervisor Device Identifier Shelf Expiration Date Model / Serial / Lot Wire [employer] - [id number] Implanted:Qty: 1 on 06/24/2022 by Natalie Sheffield IV, MD at [facility] [place] [employer] : PERIPHL [place] [id number] 12/13/2023 [id number] documented as of this encounter Advance Directives [...] the patient have Health Care Power of Human Resources Services Specialist? No Healthcare Agents on File Name Relationship Healthcare Agent Relationshi p Communication Enid Patel Adult Child Health Care Repr esentative (appointed verbally by patient or by statute hierarchy) Care Teams Seafood And Service Meat Manager Relationship Specialty Start Date End Date Luz Morales CRNP [address] [place] [address] PCP - General Nurse Practitioner 09/27/20 documented as of this encounter
--- OUTSIDE RECORDS SUMMARY | 2023-01-23 19:37 | External Medical Summary | Summary of Care ---
Author Name Unknown Organization [facility] Address [address] [place] [address] Phone [phone] Care Team Providers Care Rubber Engraver Name Role Phone Luz Morales Christel ODNNA Primary Care Provider Reason for Visit * Reason Comments eRx-Medication Refill Encounter Details Date Type Department Care Team Description 11/02/2022 Refill Cardiology, [facility] [address] [place] [address] Isabela Mejía, [address] [place] [address] Persistent atrial fibrillation (HCC)* Allergies Active Allergy Reactions Severity Noted Date Comments Erythromycin Rash 12/14/1999 Ibuprofen Rash 08/05/2011 Latex Rash 03/20/2007 Latex High 07/24/2022 Other reaction(s): RASH Sulfa Antibiotics Rash 12/14/1999 documented as of this encounter (statuses as of 11/06/2022) Medications Medication Sig Dispensed Refills Start Date [...] 1 Active Mepolizumab 100 MG/ML Subcutaneous Solution Auto-injectorIndi [...] per day 180 Tablet 3 3 Active oxyCODONE-Acetami nophen 5-325 MG Oral Tablet [...] 24 Active Apixaban 5 MG Oral Tablet (Eliquis)Indicati [...] 24 Active Gabapentin 100 MG Oral Capsule (Neurontin)Indica tions:Migraine without aura and without status migrainosus, not intractable,Acute ischemic right MCA stroke (HCC),Memory loss Take 1 Capsule by mouth in the morning and 1 Capsule in the evening. 60 Capsule 1 3 Active Clobetasol Propionate 0.05 % External SolutionIndicatio [...] 6 mL 0 3 01/01/20 23 Active Amiodarone HCl 200 MG Oral Tablet (Cordarone)Indica tions:Persistent atrial fibrillation (HCC) TAKE 1 TABLET BY MOUTH IN THE MORNING AND BEFORE BEDTIME 60 Tablet 2 3 Active Amiodarone HCl 200 MG Oral Tablet (Cordarone) Take 1 Tablet by mouth in the morning and 1 Tablet before bedtime. 60 Tablet 2 3 11/07/19 23 Discontinued documented as of this encounter (statuses as of 11/06/2022) Active Problems Problem Noted Date Cerebrovascular accident (CV A) due to embolism of right middle cerebral artery 11/01/2022 Need for prophylactic vaccination and in oculation against influenza 11/01/2022 Atherosclerosis of [place] coronary arter y without angina pectoris 11/01/2022 [...] as of this encounter (statuses as of 11/06/2022) Resolved Problems Problem Noted Date Resolved Date [...] as of this encounter (statuses as of 11/06/2022) Immunizations Name Administration Dates Next Due COVID-19 mRNA, LNP-s, No Pre serve, 2-Dose Series (Smart GPS Backpack) 12/13/2020,05/30/2020,05/02/2020 COVID-19, LNP-s, No Preserve , Keith-sucrose, Ages 12+ (Pfizer) 07/04/2021 Pneumococcal Conjugate Vacci ne, 20-valent ([id number]) 02/13/2022 Pneumococcal Polysaccharide PPV23 (Pneumovax) 02/05/2020 Season [...] encounter Miscellaneous Notes * Telephone Encounter - Isabela Mejía DO - 11/06/2022 9:59 AM EDTSigned Prescriptions: Disp Refills Amiodarone HCl 200 MG Oral Tablet (Cordaro*60 Tab*2 Sig: TAKE 1 TABLET BY MOUTH IN THE MORNING AND BEFORE BEDTIME Authorizing Provider: ISABELA MEJÍA * Telephone Encounter - VERONICA Wren - 11/05/2022 12:57 PM EDTPending Prescriptions: Disp Refills Amiodarone HCl 200 MG Oral Tablet (Cordaro*60 Tab*2 Sig: TAKE 1 TABLET BY MOUTH IN THE MORNING AND BEFORE BEDTIME * Telephone Encounter - VERONICA Wren - 11/05/2022 12:57 PM EDT Did you pend patient's preferred pharmacy and medication before forwarding?yes Pharmacy: [id number] [facility] [place] Pending Prescriptions: Disp Refills Amiodarone HCl 200 MG Oral Tablet (Cordar*60 Tab*2 Sig: TAKE 1 TABLET BY MOUTH IN THE MORNING AND BEFORE BEDTIME Last Visit: 04/17/2022 (in office), Visit date not found (telemedicine) Next Visit: 12/23/2022 If no future appointments scheduled, and last appointment is greater than a year ago, please schedule patient for a follow-up appointment Last date the medication was ordered: 08-01-2022 Is this request for a controlled substance?No Urine Drug Screen: Results for orders placed or performed in visit on 05/05/18 OPIOIDS/BENZO COMPLIANCE MONITORING W/INTERP Result Value COMPLIANCE INTERP (NOTE) URINE DRUG SCREEN RESULT Amphetamine NEGATIVE Barbiturates NEGATIVE Benzodiazepines NEGATIVE Cannabinoids NEGATIVE Cocaine Metabolite NEGATIVE METHADONE METABOLITE REFER TO CONFIRMATION RESULT (A) Morphine / Codeine REFER TO CONFIRMATION RESULT (A) OXYCODONE REFER TO CONFIRMATION RESULT (A) COMMENT THE ABOVE SCREENING RESULTS ARE PRESUMPTIVE AND CAN ONLY BE USED FOR MEDICAL PURPOSES. CONFIRMATORY TESTING IS AVAILABLE UPON REQUEST. Cutoff Concentration URINE VALID INTERP NORMAL CREATININE SAMUEL 115 Results for orders placed or performed in visit on 04/04/17 TOX SCREEN, URINE, W/ CONFIRMATION Result Value Amphetamine NEGATIVE Barbiturates NEGATIVE Benzodiazepines NEGATIVE Cannabinoids NEGATIVE Cocaine Metabolite NEGATIVE Morphine / Codeine NEGATIVE METHADONE METABOLITE NEGATIVE OXYCODONE NEGATIVE TOX COMMENT THE ABOVE SCREENING RESULTS ARE PRESUMPTIVE AND CAN ONLY BE USED FOR MEDICAL PURPOSES. POSITIVE RESULTS REFLEX TO CONFIRMATORY TESTING. Cutoff Concentration *Note: Due to a large number of results and/or encounters for the requested time period, some results have not been displayed. A complete set of results can be found in Results Review. Patient Phone Numbers [employer] [phone] Labs: Lab Results Component Value Date/Time CREAT 1.2 (H) 09/13/2022 01:56 PM CREAT 0.8 03/10/2018 07:30 AM POTASSIUM 4.7 09/13/2022 01:56 PM POTASSIUM 4.2 06/24/2022 02:06 PM POTASSIUM 4.0 03/10/2018 09:59 AM POTASSIUM 4.8 03/10/2018 07:30 AM TSH 1.81 09/13/2022 01:56 PM TSH 1.09 02/23/2019 12:11 PM LDLCALC 61 12/03/2021 10:26 AM LDLCALC 95 09/20/2016 11:16 AM LDLDIRECT NOT APPLICABLE 09/20/2016 11:16 AM ALT 29 09/13/2022 01:56 PM ALT 6 (L) 08/13/2017 11:16 AM HGBA1C 6.7 (H) 09/13/2022 01:56 PM HGBA1C 5.8 10/01/2016 11:26 AM documented in this encounter Plan of Treatment Upcoming Encounters Date Type Specialty Care Team Description 11/21/2022 Imaging Radiology 11/27/2022 Office Visit Gastroenterology Yumiko Gonzalez CRNP [address] [place] [address] 12/23/2022 Office Visit Cardiology Isabela Mejía, [address] [place] [address] 12/24/2022 Office Visit [facility]rology [facility] Wright[facility] [address] [facility] [address] 01/31/2023 Office Visit Family Medicine Luz Morales CRNP [address] [place] [address] 06/17/2023 Office Visit Sleep Disorders Ariana Beltran, [address] [place] [address] Scheduled Procedures Name Priority Associated Diagnoses Date/Ti [...] 01/17/2005 LUNG CANCER SCREENING - USE SMARTSET [address] Completed 07/19/2022, 07/06/2021, 04/11/2020, Additional history exists Influenza Vaccine (FLU shot) Completed 03/2022, 01/11/2022, 01/12/2021, Additional history exists GARDASIL-HPV IMMUNIZATION SERIES Aged Out No longer eligible based on patient's age to complete this topic Hepatitis B Aged Out No longer eligi ble based on patient's age to complete this topic documented as of this encounter Medical Devices Implanted Type Area Optical Lens Manufacturing Tech Device Identifier Shelf Expiration Date Model / Serial / Lot Wire [employer]man - [id number] Implanted:Qty: 1 on 06/24/2022 by Natalie Sheffield IV, MD at [facility] [employer] : PERIP[employer] KEYSHAWN [id number] 12/13/2023 [id number] documented as of this encounter Visit Diagnoses Diagnosis Persistent atrial fibrillation (HCC)- Primary Atrial fibrillation documented in this encounter Advance Directives Latest [...] the patient have Health Care Power of Byproducts Maker? No Healthcare Agents on File Name Relationship Healthcare Agent Relationshi p Communication Enid Patel Adult Child Health Care Repr esentative (appointed verbally by patient or by statute hierarchy) Care Teams Rubber Engraver Relationship Specialty Start Date End Date Luz Morales CRNP [address] [place] [address] PCP - General Nurse Practitioner 09/27/20 documented as of this encounter
--- OUTSIDE RECORDS SUMMARY | 2023-01-23 19:38 | External Medical Summary | Summary of Care ---
Author Name Unknown Organization [facility] Address [address] [place] [address] Phone [phone] Care Team Providers Care Director Nursery [employer] Name Role Phone Luz Morales DONNA Primary Care Provider Reason for Visit * Reason Comments case management Encounter Details Date Type Department Care Team Description 09/05/2022 Regr[facility] [employer] OperatorCoal Cager Practice [facility] [address] [place], [place] [id number] Kirstin Cameron, RN Medical home patient encounter* Allergies Active Allergy Reactions Severity Noted Date Comments Erythromycin Rash 12/14/1999 Ibuprofen Rash 08/05/2011 Latex Rash 03/20/2007 Sulfa Antibiotics Rash 12/14/1999 documented as of this encounter (statuses as of 09/05/2022) Medications Medication Sig Dispensed Refills Start Date [...] or Wheezing. 18 g 5 05/01/2021 Active buPROPion HCl ER (XL) 300 MG Oral Tablet Extended Release 24 Hour (Wellbutrin XL) Take 1 Tablet by mouth in the morning. 90 Tablet 1 04/08/2022 Active metFORMIN HCl 500 MG Oral Tablet (Glucophage) Take 1 Tablet by mouth 2 times a day with morning and evening meals. 180 Tablet 2 05/04/2022 Active Additional Information Patient taking differently:500 mg Oral BID (AM/PM MEALS),Indications: diabetes, Reported on 07/19/2022 Mepolizumab 100 MG/ML Subcutaneous Solution Auto-injectorIndic ations:Severe persistent asthma without complication,Aller gic eosinophilia INJECT 1 ML UNDER THE SKIN EVERY 4 WEEKS 1 mL 11 04/22/2022 4 Active Additional Information Patient taking differently: Indications: allergies, Reported on 07/19/2022 Atorvastatin Calcium 40 MG Oral Tablet (Lipitor)Indicatio ns:Dyslipidemia, goal LDL below 100 Take 1 Tablet by mouth in the morning. 100 Tablet 3 05/03/2022 Active Additional Information Patient taking differently:40 mg OralHS, Informant: At Discharge, Reported on 08/30/2022 Montelukast Sodium 10 MG Oral Tablet (Singulair) Take 1 Tablet by mouth in the morning. 90 Tablet 3 05/16/2022 Active Additional Information Patient taking differently:10 mg OralHS, Indications: allergies, Informant: At Discharge, Reported on 08/30/2022 Losartan Potassium 50 MG Oral Tablet (Cozaar)Indication s:HTN, goal below 140/90,Persistent atrial fibrillation (HCC) TAKE ONE TABLET BY MOUTH EVERY MORNING 90 Tablet 3 07/01/2022 Active Additional Information Patient taking differently: Indications: BP, Reported on 07/19/2022 Apixaban 5 MG Oral Tablet (Eliquis)Indicatio ns:Persistent atrial fibrillation (HCC) Take 1 Tablet by mouth in the morning and 1 Tablet before bedtime. 180 Tablet 3 07/08/2022 Active Ciclopirox 8 % External Solution Apply over nail and surrounding skin. Apply daily over previous coat. After seven (7) days, may remove with alcohol and continue cycle. 18 mL 1 08/01/2022 Active Metoprolol Succinate ER 100 MG Oral Tablet Extended Release 24 Hour (toPROL XL) One tablet by mouth 2 times per day 180 Tablet 3 08/01/2022 Active Amiodarone HCl 200 MG Oral Tablet (Cordarone) Take 1 Tablet by mouth in the morning and 1 Tablet before bedtime. 60 Tablet 2 08/01/2022 Active Trulicity 4.5 MG/0.5ML Subcutaneous Solution Pen-injector (Dulaglutide)Indic ations:Type 2 diabetes mellitus without complication, without long-term current use of insulin (HCC) Inject 4.5 mg under the skin once a week. 6 mL 1 08/27/2022 Active oxyCODONE-Acetamin ophen 5-325 MG Oral Tablet (Percocet) Take 1 Tablet by mouth every 8 hours as needed for Other (headache). On backorder at pharmacy, has not started taking yet. 08/30/22. 0 Active Fluocinolone Acetonide Scalp 0.01 % External Oil Apply to scalp once weekly over night as directed 118.28 mL 0 08/30/2022 Active documented as of this encounter (statuses as of 09/05/2022) Active Problems Problem Noted Date Dyslipidemia 08/28/2022 Depression with anxiety 08/28/2022 History [...] as of this encounter (statuses as of 09/05/2022) Resolved Problems Problem Noted Date Resolved Date [...] as of this encounter (statuses as of 09/05/2022) Immunizations Name Administration Dates Next Due COVID-19 mRNA, LNP-s, No Pre serve, 2-Dose Series (Garlik) 12/13/2020,05/30/2020,05/02/2020 COVID-19, LNP-s, No Preserve , Keith-sucrose, Ages 12+ (Pfizer) 07/04/2021 Pneumococcal Conjugate Vacci ne, 20-valent ([id number]) 02/13/2022 Pneumococcal Polysaccharide PPV23 (Pneumovax) 02/05/2020 Seasonal [...] as of this encounter Progress Notes * Kirstin Cameron RN - 09/05/2022 9:32 AM EDT 1. Follow-up Routine 2. Attempted Phone Call First Attempt 3. Call Outcome Left Voicemail/Message 4. Plan To attempt another outreach documented in this encounter Plan of Treatment Upcoming Encounters Date Type Specialty Care Team Description 09/13/2022 [facility] Visit [facility] [address] [facility] [address] 11/01/2022 Office Visit Family Medicine Luz Morales CRNP [address] [place] [address] 11/21/2022 Imaging Radiology 11/27/2022 Office Visit Gastroenterology Yumiko Gonzalez CRNP [address] [place] [address] 12/23/2022 Office Visit Cardiology Rodo Romero DO [address] [place] [address] 06/17/2023 Office Visit Sleep Disorders Ariana Beltran DO [address] [place] [address] Scheduled Procedures Name Priority Associated Diagnoses Date/Ti me COLONOSCOPY FLEXIBLE PROXIMA L DIAGNOSTIC Recall History of colonic polyps Health Maintenance Due Date Last Done Comments Alpha-1 Antitrypsin 1972 DIABETES-EYE EXAM 06/26/2016 06/27/2015, , 05/30/2015 Albumin/Creatinine Ratio 05/09/2022 05/09/2021, 2 10/2020 HbA1c 06/03/2022 12/03/2021, 050 06/2021, 02/06/2021, Additional history exists Depression Screening, Annual for Pts 12 and Over 08/14/2022 08/14/2021 Mammogram 08/14/2022 08/14/2021, 11/2020, 06/10/2018, Additional history exists Influenza Vaccine (FLU shot) (#1) 2022 01/11/2022, 01/12/2021, 12/20/2019, Additional history exists DIABETES-FOOT EXAM 02/13/2023 02/13/2022, 05/09/2021 O2 ASSESSMENT COMPLETED IN PAST YEAR FOR COPD 06/25/2023 06/24/2022 GFR 08/22/2023 08/21/2022, 06/02, 03/05/2022, Additional history exists DXA Scan 08/28/2023 08/27/2016 COLONOSCOPY-EVERY 5 YRS AGES 18-100 03/30/2024 03/30/2019, [...] 01/17/2005 LUNG CANCER SCREENING - USE SMARTSET [id number] Completed 07/19/2022, 07/06/2021, 04/11/2020, Additional history exists GARDASIL-HPV IMMUNIZATION SERIES Aged Out No longer eligible based on patient's age to complete this topic Hepatitis B Aged Out No longer eligi ble based on patient's age to complete this topic documented as of this encounter Medical Devices Implanted Type Area Tank Wagon Driver Device Identifier Shelf Expiration Date Model / Serial / Lot Wire Mailman - [id number] Implanted:Qty: 1 on 06/24/2022 by Natalie Sheffield IV, [place] [facility] [place] [employer] : PERIPHL IV [id number] 12/13/2023 [id number] documented as of this encounter Visit Diagnoses Diagnosis Medical home patient encounter- Primary Other specified examination documented in this encounter Advance Directives Latest [...] the patient have Health Care Power of Psychological Aide? No Healthcare Agents on File Name Relationship [facility] Enid Patel Adult Child Health Care Repr esentative (appointed verbally by patient or by statute hierarchy) Care Teams Director Nursery School Relationship Specialty Start Date End Date Luz Morales CRNP [address] [place] [address] PCP - General Nurse Practitioner 09/27/20 documented as of this encounter
--- OUTSIDE RECORDS SUMMARY | 2023-01-23 19:38 | External Medical Summary | Summary of Care ---
Author Name Unknown Organization [facility] Address [address] [place] [address] Phone [phone] Care Team Providers Care Linen Attendant Name Role Phone Luz Morales Primary Care Provider Reason for Visit * Reason Onset Date Comments Advice 08/29/2022 Encounter Details Date Type Department Care Team Description 08/29/2022 Telephone Family Practice [facility] [address] [place] [facility] [place] [address] Luz Morales CR[facility] [address] [facility] [address] Advice Allergies Active Allergy Reactions Severity Noted Date Comments Erythromycin Rash 12/14/1999 Ibuprofen Rash 08/05/2011 Latex Rash 03/20/2007 Sulfa Antibiotics Rash 12/14/1999 documented as of this encounter (statuses as of 08/29/2022) Medications Medication Sig Dispensed Refills Start Date End Date Status VITAMIN C 500 MG PO TABS one tab by mouth twice daily 0 Active MULTIVITAMINS PO TABS one tab by mouth daily 0 Active FISH OIL 500 MG PO CAPS one tab by mouth daily 0 Active Vitamin D, Cholecalciferol, 400 UNITS CAPS Take by mouth. 0 Active cetirizine (ZYRTEC) 10 MG Tablet Take 1 Tab by mouth daily. 30 Tab 3 01/30/2018 Active Additional Information Patient taking differently:10 mg Oral Daily(AM),Indications: allergies, Reported on 07/19/2022 acetaminophen (TYLENOL) 325 MG TabletIndications: Persistent atrial fibrillation (HCC) Take 2 Tabs by mouth every 6 hours as needed for Pain. 30 Tab 0 03/11/2018 Active EPINEPHrine, anaphylaxis, (EPI-PEN) 0.3 MG/0.3ML SOAJ injection [...] HANDS DAILY 350 g 1 02/08/2021 Active Mupirocin 2 % External Ointment (Bactroban) Apply to the nose twice daily 22 g 4 02/13/2021 Active Albuterol Sulfate HFA 108 (90 Base) [...] 07/19/2022 Atorvastatin Calcium 40 MG Oral Tablet (Lipitor)Henry ns:Dyslipidemia, goal LDL below 100 Take 1 Tablet by mouth in the morning. 100 Tablet 3 05/03/2022 Active Montelukast Sodium 10 MG Oral Tablet (Singulair) Take 1 Tablet by mouth in the morning. 90 Tablet 3 05/16/2022 Active Additional Information Patient taking differently:10 mg Oral Daily(AM),Indications: allergies, Reported on 07/19/2022 Omeprazole 20 MG Oral Capsule Delayed Release (PriLOSEC) Take 1 Capsule by mouth 2 times a day 30 minutes before morning and evening meals. 60 Capsule 0 06/24/2022 Active Additional Information Patient taking differently:20 mg Oral BID (0730,1630),Indications: stomach, Reported on 07/19/2022 Losartan Potassium 50 MG Oral Tablet (Cozaar)Indication s:HTN, goal below 140/90,Persistent atrial fibrillation (HCC) TAKE ONE TABLET BY MOUTH EVERY MORNING 90 Tablet 3 07/01/2022 Active Additional Information Patient taking differently: Indications: BP, Reported on 07/19/2022 Trelegy Ellipta 200-62.5-25 MCG/ACT Aerosol Powder Breath Activated (Fluticasone-Umecl idinium-Vilanterol ) Inhale 1 Puff by mouth in the morning. 180 Blister Dosing Unit 3 07/01/2022 Active Apixaban 5 MG Oral Tablet (Eliquis)Henry ns:Persistent atrial fibrillation (HCC) Take 1 Tablet [...] a week. 6 mL 1 08/27/2022 Active Hospital, Clinic, or Other Facility Administered Medication Ordered Dose Route Frequency Start Date End Date Status Albuterol Sulfate (Proventil) (5 MG/ML) 0.5% *conc* inhalation solution 2.5 mgIndications:Asthma with COPD (chronic obstructive pulmonary disease) (HCC) 2.5 mg NEBULIZER PRN 05/16/2022 05/16/2023 Active Albuterol Sulfate (Proventil) (2.5 MG/3ML) 0.083% inhalation solution 2.5 mgIndications:Asthma with COPD (chronic obstructive pulmonary disease) (HCC) 2.5 mg NEBULIZER PRN 05/16/2022 05/16/2023 Active documented as of this encounter (statuses as of 08/29/2022) Active Problems Problem Noted Date Dyslipidemia 08/28/2022 [...] as of this encounter (statuses as of 08/29/2022) Resolved Problems Problem Noted Date Resolved Date [...] as of this encounter (statuses as of 08/29/2022) Immunizations Name Administration Dates Next Due COVID-19 mRNA, LNP-s, No Pre serve, 2-Dose Series (Pfizer) 12/13/2020,05/30/2020,05/02/2020 COVID-19, LNP-s, No Preserve , Keith-sucrose, Ages 12+ (Pfizer) 07/04/2021 Pneumococcal Conjugate Vacci ne, 20-valent ([id number]) 02/13/2022 Pneumococcal Polysaccharide PPV23 (Pneumovax) 02/05/2020 Seasonal [...] encounter Miscellaneous Notes * Telephone Encounter - CARLEE Medellin - 08/29/2022 9:45 AM EDT Pt has appt with Dr. Perry tomorrow. Can address then. * Telephone Encounter - LILI Zambrano - 08/29/2022 8:57 AM EDT Needs PT for stroke but does not know who to go to or who specializes in strokes, etc. Would like a call back from a nurse to discuss at [phone]. documented in this encounter Plan of Treatment Upcoming Encounters Date Type Specialty Care Team Description 08/30/2022 Office Visit Family Medicine Garret Perry MD [address] [place] [address] 11/01/2022 Office Visit Family Medicine Luz Morales CRNP [address] [place] [address] 11/21/2022 Imaging Radiology 11/27/2022 Office Visit Gastroenterology Yumiko Gonzalez CRNP [address] [place] [address] 12/23/2022 Office Visit Cardiology Rodo Romero, [address] [place] [address] 06/17/2023 Office Visit Sleep Disorders Ariana Beltran DO [address] [place] [address] Scheduled Procedures Name Priority Associated Diagnoses Date/Ti me COLONOSCOPY FLEXIBLE PROXIMA L DIAGNOSTIC Recall History of colonic polyps Health Maintenance Due Date Last Done Comments Alpha-1 Antitrypsin 1972 DIABETES-EYE EXAM 06/26/2016 06/27/2015, , 05/30/2015 Albumin/Creatinine Ratio 05/09/2022 05/09/2021, 06/02 HbA1c 06/03/2022 12/03/2021, 06/2021, 02/06/2021, Additional history exists Depression Screening, [...] Completed 11/09/2021, 06/2021, 12/13/2020, Additional history exists Influenza Vaccine (FLU shot) Completed 01/2022, 01/12/2021, 12/20/2019, Additional history exists Pneumococcal Vaccine: 65+ Years Completed 02/13/2022, 02/05/2020, 01/17/2005 LUNG CANCER SCREENING - USE SMARTSET [id number] Completed 07/19/2022, 07/06/2021, 04/11/2020, Additional history exists GARDASIL-HPV IMMUNIZATION SERIES Aged Out No longer eligible based on patient's age to complete this topic Hepatitis B Aged Out No longer eligi ble based on patient's age to complete this topic documented as of this encounter Medical Devices Implanted Type Area Orthodontic Lab Technician Device Identifier Shelf Expiration Date Model / Serial / Lot Wire Mailman - [id number] Implanted:Qty: 1 on 06/24/2022 by Natalie Sheffield IV, [place] [facility] [place] [employer] : PERIPHL IV [id number] 12/13/2023 [id number] documented as of this encounter Advance Directives [...] the patient have Health Care Power of Applications Engineer Manufacturing? No Care Teams Linen Attendant Relationship Specialty Start Date End Date Luz Morales CRNP [address] [place] [address] PCP - General Nurse Practitioner 09/27/20 documented as of this encounter
--- OUTSIDE RECORDS SUMMARY | 2023-01-23 19:38 | External Medical Summary ---
Author Name Unknown Address Unknown Organization : Laboratory Report Ordering Provider Test Date Status JANY FLOOD 09/13/2022 13:56:45 Final Observation Date Value Abnormality Reference (Units ) Status Thiamine [Moles/volume] in Blood 09/13/2022 13:56:45 123 78-185 (nmol/L) Final Vitamin supplementation with in 24 hours prior to
blood draw may affect the accuracy of the results.
This test was developed and its analytical performance
characteristics have been determined by [employer] [place], [place]. It has
not been cleared or approved by the U.S. Food and Drug
Administration. This assay has been validated pursuant
to the CLIA regulations and is used for clinical
purposes.

Test Performed at:
[facility]
[address] [facility]
[place] [address]
Alexis Falk M.D., Ph.D.,Director of Laboratories Performing Location
--- OUTSIDE RECORDS SUMMARY | 2023-01-23 19:38 | External Medical Summary ---
Author Name Unknown Address Unknown Organization [id number]:[facility] [place] - [address] [place] [id number] Laboratory Report Ordering Provider Test Date Status AFSANEH TYSON 09/17/2022 10:52:09 Final Normal: <30 mg/g creatinine< br/>High: 30-300 mg/g creatinine
Very High: >300 mg/g creatinine
Nephrotic: >2200 mg/g creatinine Observation Date Value Abnormality Reference (Units ) Status Albumin, Urine 09/17/2022 10:52:09 <1.20 (mg/dL) Final Creatinine, Urine 09/17/2022 10:52:09 99 (mg/dL) Final Albumin/Creatinine [Mass Ratio] in Urine 09/17/2022 10:52:09 <12 <30 (mg/g Creat) Final Performing Location [facility] [place] - [address] [place] [id number]
--- OUTSIDE RECORDS SUMMARY | 2023-01-23 19:38 | External Medical Summary | Summary of Care ---
Author Name Unknown Organization [facility] Address [address] [place] [address] Phone [phone] Care Team Providers Care Corporate Executive Chef Name Role Phone Luz Moraleslle DONNA Primary Care Provider Reason for Visit * Reason Onset Date Comments Oxygen Assessment 06/11/2022 NPO Encounter Details Date Type Department Care Team Description 06/11/2022 Telephone Sleep Disorders [facility]tr [facility] [address] [place] [address] Ariana Beltran DO [address] [place] [address] Oxygen Assessment (NPO) Allergies Active Allergy Reactions Severity Noted Date Comments Erythromycin Rash 12/14/1999 Ibuprofen Rash 08/05/2011 Latex Rash 03/20/2007 Latex High 07/24/2022 Other reaction(s): RASH Sulfa Antibiotics Rash 12/14/1999 documented as of this encounter (statuses as of 10/03/2022) Medications Medication Sig Dispensed Refills Start Date [...] EVERY 4 WEEKS 1 mL 11 04/22/2022 Active Additional Information Patient taking differently: Indications: allergies, Reported on 07/19/2022 documented as of this encounter (statuses as of 10/03/2022) Active Problems Problem Noted Date COPD, group [...] as of this encounter (statuses as of 10/03/2022) Resolved Problems Problem Noted Date Resolved Date [...] as of this encounter (statuses as of 10/03/2022) Immunizations Name Administration Dates Next Due COVID-19 mRNA, LNP-s, No Pre serve, 2-Dose Series (Headplay) 12/13/2020,05/30/2020,05/02/2020 COVID-19, LNP-s, No Preserve , Keith-sucrose, Ages 12+ (Pfizer) 07/04/2021 Pneumococcal Conjugate Vacci ne, 20-valent ([id number]) 02/13/2022 Pneumococcal Polysaccharide PPV23 (Pneumovax) 02/05/2020 Seasonal [...] on file documented as of this encounter Miscellaneous Notes * Telephone Encounter - Jaelyn Rojas LPN - 10/03/2022 2:42 PM EDT Per Th unable to reach the pt. Order was cx * Telephone Encounter - Jaelyn Rojas LPN - 06/12/2022 9:06 AM EDT Order has been sent to * Telephone Encounter - Ariana Beltran DO - 06/11/2022 2:29 PM EDT Nox ordered on RA with PAP documented in this encounter Plan of Treatment Upcoming Encounters Date Type Specialty Care Team Description 11/01/2022 Office Visit Family Medicine Luz Morales CRNP [address] [place] [address] 11/21/2022 Imaging Radiology 11/27/2022 Office Visit Gastroenterology Yumiko Gonzalez CRNP [address] [place] [address] 12/23/2022 Office Visit Cardiology Rodo Romero, [address] [place] [address] 12/24/2022 Office Visit Neurology Harhsa Wright, [address] [facility], [place] [address] 06/17/2023 Office Visit Sleep Disorders Ariana Beltran DO [address] [place] [address] Scheduled Procedures Name Priority Associated Diagnoses Date/Ti [...] 01/17/2005 LUNG CANCER SCREENING - USE SMARTSET [id number] Completed 07/19/2022, 07/06/2021, 04/11/2020, Additional history exists GARDASIL-HPV IMMUNIZATION SERIES Aged Out No longer eligible based on patient's age to complete this topic Hepatitis B Aged Out No longer eligi ble based on patient's age to complete this topic documented as of this encounter Medical Devices Implanted Type Area Socket Welder Helper Device Identifier Shelf Expiration Date Model / Serial / Lot Wire Mailman - [id number] Implanted:Qty: 1 on 06/24/2022 by Natalie Sheffield IV, MD at [facility] [employer] : PERIPHL IV [id number] 12/13/2023 [id number] documented as of this encounter Visit Diagnoses Diagnosis Nocturnal hypoxemia- Primary Hypoxemia documented in this encounter Advance Directives Latest [...] the patient have Health Care Power of Auto Air Conditioning Installer? No Healthcare Agents on File Name Relationship Healthcare Agent Relationshi p Communication Enid Patel Adult Child Health Care Repr esentative (appointed verbally by patient or by statute hierarchy) Care Teams Corporate Executive Chef Relationship Specialty Start Date End Date Luz Morales CRNP [address] [place] [address] PCP - General Nurse Practitioner 09/27/20 documented as of this encounter
--- OUTSIDE RECORDS SUMMARY | 2023-01-23 19:38 | External Medical Summary | Summary of Care ---
Author Name Unknown Organization [facility] Address [address] [place] [address] Phone [phone] Care Team Providers Care Motor Rebuilder Name Role Phone Luz Morales DONNA Primary Care Provider Reason for Visit * Reason Onset Date Comments case management 09/11/2022 Encounter Details Date Type Department Care Team Description 09/11/2022 Derrick Worker Telephone Family Practice [facility] [address] [place] [address] Kirstin Cameron, enrollment management coordinator Allergies Active Allergy Reactions Severity Noted Date Comments Erythromycin Rash 12/14/1999 Ibuprofen Rash 08/05/2011 Latex Rash 03/20/2007 Latex High 07/24/2022 Other reaction(s): RASH Sulfa Antibiotics Rash 12/14/1999 documented as of this encounter (statuses as of 09/27/2022) Medications Medication Sig Dispensed Refills Start Date [...] MORNING 90 Tablet 1 04/08/2022 4 Active documented as of this encounter (statuses as of 09/27/2022) Active Problems Problem Noted Date COPD, group [...] as of this encounter (statuses as of 09/27/2022) Resolved Problems Problem Noted Date Resolved Date [...] as of this encounter (statuses as of 09/27/2022) Immunizations Name Administration Dates Next Due COVID-19 mRNA, LNP-s, No Pre serve, 2-Dose Series (Pfizer) 12/13/2020,05/30/2020,05/02/2020 COVID-19, LNP-s, No Preserve , Keith-sucrose, Ages 12+ (Pfizer) 07/04/2021 Pneumococcal Conjugate Vacci ne, 20-valent ([id number]) 02/13/2022 Pneumococcal Polysaccharide PPV23 (Pneumovax) 02/05/2020 Seasonal [...] encounter Miscellaneous Notes * Telephone Encounter - Kirstin Cameron RN - 09/11/2022 4:30 PM EDT myg message sent. * Telephone Encounter - Garret Perry MD - 09/11/2022 4:19 PM EDT No more oxycodone for headaches. Tylenol alternating with ibuprofen until seen by neurology. ER foremergent headaches. * Telephone Encounter - Kirstin Cameron RN - 09/11/2022 1:39 PM EDT CM Progress note S: spoke with patient. She continues to have constant headache. Is taking ibuprofen which helps minimally. She had been taking oxycodone in the hospital, this helped better than advil or tylenol, didnot take away the pain completely, but was more tolerable. She is doing physical therapy. Denies any falls. No visual disturbance. Has upcoming appt in neurology on 09/13. O Alivia week 3 follow up A: Alert and oriented P: Will message provider regarding pain for any advice. Given CM contact # and instructed to call with worsening pain, or other concerns. PDMP report shows she was given 7 tabs of percocet on 08/23/22. documented in this encounter Plan of Treatment Upcoming Encounters Date Type Specialty Care Team Description 11/01/2022 Office Visit Family Medicine Luz Morales CRNP [address] [place] [address] 11/21/2022 Imaging Radiology 11/27/2022 Office Visit Gastroenterology Yumiko Gonzalez CRNP [address] [place] [address] 12/23/2022 Office Visit Cardiology Rodo Romero, [address] [place] [address] 12/24/2022 Office Visit [facility] [address] [facility] [address] 06/17/2023 Office Visit Sleep Disorders Ariana Beltran, [address] [place] [address] Scheduled Procedures Name Priority Associated Diagnoses Date/Ti me COLONOSCOPY FLEXIBLE PROXIMA L DIAGNOSTIC Recall History of colonic polyps Health Maintenance Due Date Last Done Comments Alpha-1 Antitrypsin 1972 DIABETES-EYE EXAM 06/26/2016 06/27/2015, , 05/30/2015 Depression Screening, Annual for Pts 12 and Over 08/14/2022 08/14/2021 Mammogram 08/14/2022 08/14/2021, 06/11/2020, 06/10/2018, Additional history exists Influenza Vaccine (FLU shot) (#1) 2022 01/11/2022, 01/12/2021, 12/20/2019, Additional history exists DIABETES-FOOT EXAM 02/13/2023 02/13/2022, 05/09/2021 HbA1c 03/16/2023 09/13/2022, 1005/2021, 07/04/2021, Additional history exists O2 ASSESSMENT COMPLETED [...] 01/17/2005 LUNG CANCER SCREENING - USE SMARTSET 08158 Completed 07/19/2022, 07/06/2021, 04/11/2020, Additional history exists GARDASIL-HPV IMMUNIZATION SERIES Aged Out No longer eligible based on patient's age to complete this topic Hepatitis B Aged Out No longer eligi ble based on patient's age to complete this topic documented as of this encounter Medical Devices Implanted Type Area Employment Interviewer Device Identifier Shelf Expiration Date Model / Serial / Lot Wire Mailman - [id number] Implanted:Qty: 1 on 06/24/2022 by Natalie Sheffield IV, MD at [facility] [employer] : [place] [id number] 12/13/2023 [id number] documented as of this encounter Advance Directives [...] the patient have Health Care Power of Hides And Skins Colorer? No Healthcare Agents on File Name Relationship Healthcare Agent Relationshi p Communication Enid Nguyenurer Adult Child Health Care Repr esentative (appointed verbally by patient or by statute hierarchy) Care Teams Motor Rebuilder Relationship Specialty Start Date End Date Luz Morales CRNP [address] [place] [address] PCP - General Nurse Practitioner 09/27/20 documented as of this encounter
--- OUTSIDE RECORDS SUMMARY | 2023-01-23 19:38 | External Medical Summary | Summary of Care ---
Author Name Unknown Organization [facility] Address [address] [place] [address] Phone [phone] Care Team Providers Care Physical Trainer Name Role Phone Luz Morales Christel DONNA Primary Care Provider Encounter Details Date Type Department Care Team Description 08/30/2022 Telephone Family Practice [facility] [address] [place] [facility] [place] [address] Garret Perry MD [address] [place] [address] Allergies Active Allergy Reactions Severity Noted Date Comments Erythromycin Rash 12/14/1999 Ibuprofen Rash 08/05/2011 Latex Rash 03/20/2007 Sulfa Antibiotics Rash 12/14/1999 documented as of this encounter (statuses as of 08/30/2022) Medications Medication Sig Dispensed Refills Start Date [...] as of this encounter (statuses as of 08/30/2022) Active Problems Problem Noted Date Dyslipidemia 08/28/2022 [...] as of this encounter (statuses as of 08/30/2022) Resolved Problems Problem Noted Date Resolved Date [...] as of this encounter (statuses as of 08/30/2022) Immunizations Name Administration Dates Next Due COVID-19 mRNA, LNP-s, No Pre serve, 2-Dose Series ([employer]) 12/13/2020,05/30/2020,05/02/2020 COVID-19, LNP-s, No Preserve , Keith-sucrose, Ages 12+ ([employer]) 07/04/2021 Pneumococcal Conjugate Vacci ne, 20-valent ([id number]) 02/13/2022 Pneumococcal Polysaccharide PPV23 (Pneumovax) 02/05/2020 Seasonal [...] * Telephone Encounter - CARLEE Medellin - 08/30/2022 4:56 PM EDT PT referral faxed to [facility]. documented in this encounter Plan of Treatment Upcoming Encounters Date Type Specialty Care Team Description 11/01/2022 Office Visit Family Medicine Luz Morales CRNP [address] [place] [address] 11/21/2022 Imaging Radiology 11/27/2022 Office Visit Gastroenterology Yumiko Gonzalez CRNP [address] [place] [address] 12/23/2022 Office Visit Cardiology Rodo Romero, [address] [place] [address] 02/25/2023 Office Visit Neurology Harsha Wright, [address] [place] [address] 06/17/2023 Office Visit Sleep Disorders Ariana Beltran DO [address] [place] [address] Scheduled Procedures Name Priority Associated Diagnoses Date/Ti me COLONOSCOPY FLEXIBLE PROXIMA L DIAGNOSTIC Recall History of colonic polyps Health Maintenance Due Date Last Done Comments Alpha-1 Antitrypsin 1972 DIABETES-EYE EXAM 06/26/2016 06/27/2015, , 05/30/2015 Albumin/Creatinine Ratio 05/09/2022 05/09/2021, 2 10/2020 HbA1c 06/03/2022 12/03/2021, 0 06/2021, 02/06/2021, Additional history exists Depression Screening, [...] 01/17/2005 LUNG CANCER SCREENING - USE SMARTSET 41053 Completed 07/19/2022, 07/06/2021, 04/11/2020, Additional history exists GARDASIL-HPV IMMUNIZATION SERIES Aged Out No longer eligible based on patient's age to complete this topic Hepatitis B Aged Out No longer eligi ble based on patient's age to complete this topic documented as of this encounter Medical Devices Implanted Type Area Ore Roaster Device Identifier Shelf Expiration Date Model / Serial / Lot Wire Jairo - [id number] Implanted:Qty: 1 on 06/24/2022 by Natalie Sheffield IV, MD at [facility] [employer] : [place] [id number] 12/13/2023 [id number] documented as of this encounter Advance Directives [...] the patient have Health Care Power of Automobile Rental Agent? No Healthcare Agents on File Name Relationship Healthcare Agent Relationshi p Communication Enid Patel Adult Child Health Care Repr esentative (appointed verbally by patient or by statute hierarchy) Care Teams Physical Trainer Relationship Specialty Start Date End Date Luz Morales CRNP [address] [place] [address] PCP - General Nurse Practitioner 09/27/20 documented as of this encounter
--- OUTSIDE RECORDS SUMMARY | 2023-01-23 19:38 | External Medical Summary | Summary of Care ---
Author Name Unknown Organization [facility] Address [address] [place] [address] Phone [phone] Care Team Providers Care Workforce Development Assistant Name Role Phone Luz Morales Primary Care Provider Reason for Referral * Evaluate & Treat - Unlimited Visits (Within 3 days (urgent)) - Authorized Specialty Diagnoses / Procedures Referred By Steven perkins Referred To Contact Drug Abuse Program Coordinator Diagnoses Hospital discharge follow-up Luz Morales CRNP [address] [place] [address] Referral ID Status Reason Start Date Expiration Date Visits Requested Visits Authorized [id number] Authorized Specialty Services Required 08/30/2022 1 1 Question Answer Referral Priority Within 3 days (urgent) Program Type Case Management Complex Case Management [facility] [place] Health Device(s) Requested Other (See Comment) - post discharge IVR calls Alarm Settings Standard per protocol Any specialized instructions weekly x 4, on mondays at 2 PM, starting 09/02/22. Please put on [facility] [place] calendar of Kirstin Cameron RN. Thank you. Encounter Details Date Type Department Care Team Description 08/30/2022 Drug Abuse Program CoordinatorFacility Environmental Technician Medicine [address] [phone] Sondra Aguilera, JOESPH [address] [place] [address] Medical home patient encounter*; Hospital discharge follow-up; CVA (cerebral vascular accident) ([facility]); Fall; Tachycardia; Morbid obesity ([facility]); Asthma-COPD overlap syndrome ([facility]); Persistent atrial fibrillation ([facility]); Migraines; Type 2 diabetes mellitus with hemoglobin A1c goal of less than 8.0% ([facility]); LILI on CPAP; Advanced care planning/counseling discussion Allergies Active Allergy Reactions Severity Noted Date [...] on 07/19/2022 Mepolizumab 100 MG/ML Subcutaneous Solution Auto-injectorIndi cations:Severe persistent asthma without complication,Kobe rgic eosinophilia INJECT 1 ML UNDER THE SKIN EVERY 4 WEEKS 1 mL 11 04/22/2022 4 Active Additional Information Patient taking differently: Indications: allergies, Reported on 07/19/2022 Atorvastatin Calcium 40 MG Oral Tablet (Lipitor)Indicati ons:Dyslipidemia, goal LDL below 100 Take 1 Tablet [...] 08/30/2022 Losartan Potassium 50 MG Oral Tablet (Cozaar)Indicatio ns:HTN, goal below 140/90,Persistent atrial fibrillation (HCC) TAKE ONE TABLET BY MOUTH EVERY MORNING 90 Tablet 3 07/01/2022 Active Additional Information Patient taking differently: Indications: BP, Reported on 07/19/2022 Apixaban 5 MG Oral Tablet (Eliquis)Indicati ons:Persistent atrial fibrillation (HCC) Take 1 Tablet by [...] Active Trulicity 4.5 MG/0.5ML Subcutaneous Solution Pen-injector (Dulaglutide)Jigna cations:Type 2 diabetes mellitus without complication, without long-term current use of insulin (HCC) Inject 4.5 mg under the skin once a week. 6 mL 1 08/27/2022 Active oxyCODONE-Acetami nophen 5-325 MG Oral Tablet (Percocet) Take 1 Tablet by mouth every 8 hours as needed for Other (headache). On backorder at pharmacy, has not started taking yet. 08/30/22. 0 Active acetaminophen (TYLENOL) 325 MG TabletIndications :Persistent atrial fibrillation (HCC) Take 2 Tabs by mouth every 6 hours as needed for Pain. 30 Tab 0 03/11/2018 3 Discontinu ed(Dischar geeverett) Omeprazole 20 MG Oral Capsule Delayed Release (PriLOSEC) Take 1 Capsule by mouth 2 times a day 30 minutes before morning and evening meals. 60 Capsule 0 06/24/2022 3 Discontinu ed(Medicat ion List Clean Up) Trelegy Ellipta 200-62.5-25 MCG/ACT Aerosol Powder Breath Activated (Fluticasone-Umec lidinium-Vilanter ol) Inhale 1 Puff by mouth in the morning. 180 Blister Dosing Unit 3 07/01/2022 3 Discontinu ed(Medicat ion List Clean Up) Ibuprofen 200 MG Oral Tablet Take by mouth every 4 hours as needed (headache). 0 3 Discontinu ed(Selwyn olivares) Hospital, Clinic, or Other Facility Administered Medication Ordered Dose Route Frequency Start Date End Date Status Albuterol Sulfate (Proventil) (5 MG/ML) 0.5% *conc* inhalation solution 2.5 mgIndications:Asth ma with COPD (chronic obstructive pulmonary disease) (HCC) 2.5 mg NEBULIZER PRN 05/16/2022 08/30/2022 Discontinued Albuterol Sulfate (Proventil) (2.5 MG/3ML) 0.083% inhalation solution 2.5 mgIndications:Asth ma with COPD (chronic obstructive pulmonary disease) (HCC) 2.5 mg NEBULIZER PRN 05/16/2022 08/30/2022 Discontinued documented as of this encounter (statuses [...] (Pfizer) 07/04/2021 Pneumococcal Conjugate Vacci ne, 20-valent ([id number]) 02/13/2022 Pneumococcal Polysaccharide PPV23 (Pneumovax) 02/05/2020 Seasonal [...] as of this encounter Progress Notes * Sondra Aguilera RN - 08/30/2022 2:40 PM EDT Drug Abuse Program Coordinator Progress Note: Date: 08/30/22 Assgned Patient Tier: 2 Connected with patient via telephone. Verified patient name/. Advised patient that call is beingrecorded for quality and training purposes. Assessment: Pt. noted the following: alert, oriented, pleasant. Not active with home health -wants to go for outpatient PT instead. Plans to discuss with PCP at appointment today. Fairly independent with ADL's, needs assist with IADL's. Daughter providing transportation for appointment today, she is also staying with daughter temporarily. Otherwise, normally lives alone in a 2 story home. Ambulating with cane. Most recent fall was on 08/15/22. Denies dizziness. Denies chest pain or edema. Denies shortness of breath. Former smoker. Uses CPAP at night related to dx of sleep apnea. Denies GI/ issues. Last BM was this morning. Pain: "throbbing headache". Comes and goes, but is almost constant. Has tired tylenol, ibuprofen, dark/quiet room - nothing works. Went to get ordered Percocet from the pharmacy -it is on backorder. "I'd really like to get rid of this headache." Sleeping okay. Gets up 3 x nightto void, able to go back to sleep, Eating and drinking normally. Hard of hearing. "I really need a hearing aide." Med rec completed with patient. Confirms [facility]. Confirmed hospital follow up appointment scheduled for this afternoon. Plans to keep as scheduled. Initiated discussion on Advance Directives. None in place. Names her daughter, Enid Patel, as her decision maker if unable to speak for herself. Willing to complete DMPOA. CM to mail AD booklet and combined DMPOA/Living Will forms to patient. If any questions, will call. When completed, will bringso copy can be scanned into her chart, then will keep the originals. Agreeable to post discharge IVR calls, weekly x 4. Did you receive an alert for an annual wellness visit? No Is this call for a hospital, halfway or rehab facility discharge to home? Yes - patient was inpatient at [facility] from 08/15/22 - 08/20/22. Transferred to [facility] for short term rehab, where she was from 08/20/22 - 08/25/22. Discharge dx: R MCA CVA, mechanical fall, hxof resolved tachycardia induced cardiomyopathy, morbid obesity, COPD/asthma, AF with recent cardioversion 08/14/22, migraines, type 2 DM, LILI - CPAP. Medication Reconciliation: Medication Reconciliation completed: yes Review of Current goals: Discussed the following patient-centered CM goals with the patient during this discussion: -Prevention: Prevent admission/readmission -Status: On Track - hospital discharge appointment scheduled for this afternoon. Taking what medications she has correctly - does not have Percocet yet. OLEKSANDR referral placed. Receptive to participation with case management. Agreeable to post discharge IVR calls. To be getting referral for outpatientphysical therapy. -SAFETY: Prevent falls or injuries -Status: On Track - no falls since 08/15/22, and that was due to having a stroke. Ambulating with cane. Plans to attend outpatient PT. Denies dizziness. -Pain: Patient will have pain well managed -Status: At Risk - pain is the headaches. Comes and goes, near constant. Has Percocet ordered, but is on backorder at the pharmacy. Has tried tylenol, ibuprofen, and dark/quiet room. Seeing provider today. COPD Patient: YES Cough: none, Breathing: Breathing at Baseline CHF Patient: NO CM Plan: Reviewed 3 Red Flags with patient. Advised to call CM with any of the following: Red Flag 1: falls or injuries, Red Flag 2: new or uncontrolled pain or Red Flag 3: increased shortness of breath, Patient will contact their provider regarding: outpatient physical therapy. and Referral to: [facility] for home visit, home safety assessment, bottles out med rec, vital signs including pulse ox, please ask your COPD questions, CAT survey, review use/cleaning of CPAP, etc.. Remote Patient Monitoring: At this time, RPM not offered/considered for patient due to not needed, not indicated at this time.. Plan for Future Contacts: Plan to follow up within 1 week to check progress on the following goals/needs - [facility] device needed?Falls? Headaches? Percocet picked up yet? Pain management? Shortness of breath? Checking blood sugars at home? Did you ask the doc about evaluation for a hearing aid? Outpatient PT set up?. Planned contacts from the following parties will occur this week: PCP office visit as additional contacts per workflow. Advancement/Closure Plan: Keep patient at current Tier with reassessment per workflow. Patient provided CM contact information and encouraged to call with any changes in condition. SNP Member? No PCP Notified of enrollment in CM/HM program: Yes Is Provider in agreement with POC? Yes Sondra Aguilera RN Outpatient Case Management documented in this encounter Miscellaneous Notes * ACP (Advance Care Planning) - Sondra Aguilera RN - 08/30/2022 2:38 PM EDT Images from the original note were not included. Patient-centered Communication 08/30/2022 The patient/surrogate voluntarily agreed to participate in advance care planning discussion. Location: telephone Individual(s) present for conversation: Patient Decisions Additional Comments Synopsis SmartLink Most Recent Value Past ~10 years 08/30/2022 14:41 Additional Comments Additional Comments: Initiated discussion on Advance Directives. None in place. Names daughterEnid, to be her decision maker if unable to speak for herself. Willing to complete DMPOA, unsure about Living Will. CM to mail AD booklet and combined DMPOA/Living Will forms to patient. Any questions, will call. When completed, will bring to an appointment to be scanned into her chart. 08/30/2022 Initiated discussion on Advance Directives. None in place. Names Enid perez, to be her decision maker if unable to speak for herself. Willing to complete DMPOA, unsure about Living Will. CM to mail AD booklet and combined DMPOA/Living Will forms to patient. Any questions, will call. When completed, will bring to an appointment to be scanned into her chart. Discerning What Matters Most to the Patient: Synopsis SmartLink Most Recent Value Past ~10 years 08/30/2022 14:40 Discerning What Matters Most to the Patient Their current SYMPTOMS include: Pain 08/30/2022 Pain Was PROGNOSIS discussed? No 08/30/2022 No Source: Content from Respecting Choices Program Aligning Care With What Matters Most: No data to display Rationale for Decisions Source: Content from Respecting Choices Program 0 minutes spent in direct [id number] discussion today, Sondra Aguilera RN documented in this encounter Plan of Treatment Upcoming Encounters Date Type Specialty Care Team Description 11/01/2022 Office Visit Family Medicine Luz Morales CRNP [address] [place] [address] 11/21/2022 Imaging Radiology 11/27/2022 Office Visit Gastroenterology Yumiko Gonzalez CRNP [address] [place] [address] 12/23/2022 Office Visit Cardiology Rodo Romero DO [address] [place] [address] 02/25/2023 Office Visit Neurology Harsha Wright, DO [address] [place] [address] 06/17/2023 Office Visit Sleep Disorders Ariana Beltran, DO [address] [place] [address] Scheduled Procedures Name Priority Associated Diagnoses Date/Ti me COLONOSCOPY FLEXIBLE PROXIMA L DIAGNOSTIC Recall History of colonic polyps Scheduled Referrals Name Type Priority Associated Diagnoses Orde r Schedule REMOTE PATIENT MONITORING REFERRAL Referral Within 3 days (urgent) Hospital discharge follow-up Ordered: 08/30/2022 Health Maintenance Due Date Last Done Comments [...] 01/17/2005 LUNG CANCER SCREENING - USE SMARTSET 15422 Completed 07/19/2022, 07/06/2021, 04/11/2020, Additional history exists GARDASIL-HPV IMMUNIZATION SERIES Aged Out No longer eligible based on patient's age to complete this topic Hepatitis B Aged Out No longer eligi ble based on patient's age to complete this topic documented as of this encounter Medical Devices Implanted Type Area Watch Repairer Apprentice Device Identifier Shelf Expiration Date Model / Serial / Lot Wire Mailman - [id number] Implanted:Qty: 1 on 06/24/2022 by Natalie Sheffield IV, MD at [facility] [employer] : [place] IV [id number] 12/13/2023 [id number] documented as of this encounter Visit Diagnoses Diagnosis Medical home patient encounter- Primary Other specified examination Hospital discharge follow-up Other follow-up examination CVA (cerebral vascular accident) (HCC) Unspecified cerebral artery occlusion with cerebral infarction Fall Unspecified fall Tachycardia Tachycardia, unspecified Morbid obesity (HCC) Morbid obesity Asthma-COPD overlap syndrome (HCC) Persistent atrial fibrillation (HCC) Atrial fibrillation Migraines Migraine, unspecified, without mention of intractable migraine without mention of status migrainosus Type 2 diabetes mellitus with hemoglobin A1c goal of less than 8.0% (HCC) LILI on CPAP Obstructive sleep apnea (adult) (pediatric) Advanced care planning/counseling discussion Other specified counseling documented in this encounter Advance Directives Latest [...] the patient have Health Care Power of Grouter Helper? No Healthcare Agents on File Name Relationship Healthcare Agent Relationshi p Communication Enid Patel Adult Child Health Care Repr esentative (appointed verbally by patient or by statute hierarchy) Care Teams Workforce Development Assistant Relationship Specialty Start Date End Date uLz Morales CRNP [address] [place] [address] PCP - General Nurse Practitioner 09/27/20 documented as of this encounter
--- OUTSIDE RECORDS SUMMARY | 2023-01-23 19:38 | External Medical Summary | Summary of Care ---
Author Name Unknown Organization [facility] Address [address] [place] [address] Phone [phone] Care Team Providers Care Goldsmith Apprentice Name Role Phone Luz Morales Primary Care Provider Reason for Referral * Evaluate & Treat - Unlimited Visits (Within 3 days (urgent)) - Authorized Specialty Diagnoses / Procedures Referred By Steven perkins Referred To Contact Pharm Spec Diagnoses Hospital discharge follow-up Luz Morales CRNP [address] [place] [address] Referral ID Status Reason Start Date Expiration Date Visits Requested Visits Authorized [id number] Authorized Specialty Services Required 08/30/2022 1 1 Question Answer Referral Priority Within 3 days (urgent) Program Type Case Management Complex Case Management [facility] Health Device(s) Requested Other (See Comment) - post discharge IVR calls Alarm Settings Standard per protocol Any specialized instructions weekly x 4, on mondays at 2 PM, starting 09/02/22. Please put on [facility] calendar of Kirstin Cameron RN. Thank you. Encounter Details Date Type Department Care Team Description 08/30/2022 Pharm SpecTest Deck Supervisor Medicine [address] [phone] Sondra Aguilera, JOESPH [address] [place] [address] Medical home patient encounter*; Hospital discharge follow-up; CVA (cerebral vascular accident) ([facility]); Fall; Tachycardia; Morbid obesity ([facility]); Asthma-COPD overlap syndrome ([facility]); Persistent atrial fibrillation ([facility]); Migraines; Type 2 diabetes mellitus with hemoglobin A1c goal of less than 8.0% ([facility]); LILI on CPAP; Advanced care planning/counseling discussion Allergies Active Allergy Reactions Severity Noted Date Comments Erythromycin Rash 12/14/1999 Ibuprofen Rash 08/05/2011 Latex Rash 03/20/2007 Latex High 07/24/2022 Other reaction(s): RASH Sulfa Antibiotics Rash 12/14/1999 documented as of this encounter (statuses as of 09/30/2022) Medications Medication Sig Dispensed Refills Start Date [...] twice daily 22 g 4 1 Active Additional Information Patient not taking.Reported on 08/30/2022 Albuterol Sulfate HFA 108 (90 Base) MCG/ACT Inhalation Aerosol Solution Inhale by mouth 2 Puffs every 4 hours as needed for Shortness of Breath or Wheezing. 18 g 5 2 Active Mepolizumab 100 MG/ML Subcutaneous Solution Auto-injectorInd [...] 08/30/22. 0 Active acetaminophen (TYLENOL) 325 MG TabletIndication s:Persistent atrial fibrillation (HCC) Take 2 Tabs by mouth every 6 hours as needed for Pain. 30 Tab 0 9 08/31/19 23 Discontinued(Criss tinsley) buPROPion HCl ER (XL) 300 MG Oral Tablet Extended Release 24 Hour (Wellbutrin XL) Take 1 Tablet by mouth in the morning. 90 Tablet 1 3 04/08/19 23 Discontinued(Le gacy prescription brought in as discontinued) metFORMIN HCl 500 MG Oral Tablet (Glucophage) Take 1 Tablet by mouth 2 times a day with morning and evening meals. 180 Tablet 2 3 05/05/19 23 Discontinued(Le gacy prescription brought in as discontinued) Atorvastatin Calcium 40 MG Oral Tablet (Lipitor)Indicat ions:Dyslipidemi a, goal LDL below 100 Take 1 Tablet by mouth in the morning. 100 Tablet 3 3 05/04/19 23 Discontinued(Le gacy prescription brought in as discontinued) Montelukast Sodium 10 MG Oral Tablet (Singulair) Take 1 Tablet by mouth in the morning. 90 Tablet 3 3 05/17/19 23 Discontinued(Le gacy prescription brought in as discontinued) Omeprazole 20 MG Oral Capsule Delayed Release (PriLOSEC) Take 1 Capsule by mouth 2 times a day 30 minutes before morning and evening meals. 60 Capsule 0 3 08/31/19 23 Discontinued(Me dication List Clean Up) Losartan Potassium 50 MG Oral Tablet (Cozaar)Indicati ons:HTN, goal below 140/90,Persisten t atrial fibrillation (HCC) TAKE ONE TABLET BY MOUTH EVERY MORNING 90 Tablet 3 3 07/02/19 23 Discontinued(Le gacy prescription brought in as discontinued) Trelegy Ellipta 200-62.5-25 MCG/ACT Aerosol Powder Breath Activated (Fluticasone-Ume clidinium-Vilant bo) Inhale 1 Puff by mouth in the morning. 180 Blister Dosing Unit 3 3 08/31/19 23 Discontinued(Me dication List Clean Up) Apixaban 5 MG Oral Tablet (Eliquis)Indicat ions:Persistent atrial fibrillation (HCC) Take 1 Tablet by mouth in the morning and 1 Tablet before bedtime. 180 Tablet 3 3 07/09/19 23 Discontinued(Le gacy prescription brought in as discontinued) Ciclopirox 8 % External Solution Apply over nail and surrounding skin. Apply daily over previous coat. After seven (7) days, may remove with alcohol and continue cycle. 18 mL 1 3 08/02/19 23 Discontinued(Le gacy prescription brought in as discontinued) Trulicity 4.5 MG/0.5ML Subcutaneous Solution Pen-injector (Dulaglutide)Ind ications:Type 2 diabetes mellitus without complication, without long-term current use of insulin (HCC) Inject 4.5 mg under the skin once a week. 6 mL 1 3 08/28/19 23 Discontinued(Irena jackytess prescription brought in as discontinued) Ibuprofen 200 MG Oral Tablet Take by mouth every 4 hours as needed (headache). 0 08/31/19 23 Discontinued(Di crispinrged) Hospital, Clinic, or Other Facility Administered Medication [...] as of this encounter (statuses as of 09/30/2022) Active Problems Problem Noted Date COPD, group [...] as of this encounter (statuses as of 09/30/2022) Resolved Problems Problem Noted Date Resolved Date [...] disorder 01/01/2009 06/02/2015 Osteoarthritis of hand 03/30/2007 ADVANCE DIRECTIVE INFORMATION 04/18/2005 Overview: No, Advance [...] as of this encounter (statuses as of 09/30/2022) Immunizations Name Administration Dates Next Due COVID-19 mRNA, LNP-s, No Pre serve, 2-Dose Series ([email or web address]) 12/13/2020,05/30/2020,05/02/2020 COVID-19, LNP-s, No Preserve , Keith-sucrose, Ages 12+ (Pfizer) 07/04/2021 HEP A - Hepatitis A (Adult > 18 yrs) 03/20/2004 IPV - Polio Virus Vaccine (Inact) 03/20/2004 Meningococcal Polysaccharide Vaccine ([place]ommune) 03/20/2004 PPD 05/25/2003,05/10/2003,07/02/1995 Pneumococcal Conjugate Vacci ne, 20-valent ([id number]) 02/13/2022 Pneumococcal Polysaccharide PPV23 (Pneumovax) 02/05/2020,01/17/2005 Seasonal Influenza Virus Vac cine, Unspecified Formulation [...] Oral 03/20/2004 Zoster Vaccine Recombinant (Shingrix) 08/27/2019 ,03/31/2019 [...] Aguilera RN - 08/30/2022 2:40 PM EDT Pharm Spec Progress Note: Date: 08/30/22 Assgned Patient Tier: [...] rec completed with patient. Confirms pharmacy as [facility]. Confirmed hospital follow up appointment scheduled for [...] No Is this call for a hospital, fpc or rehab facility discharge to home? Yes - patient was inpatient at [facility] from 08/15/22 - 08/20/22. Transferred to [facility] for short term rehab, where she was [...] regarding: outpatient physical therapy. and Referral to: [facility] for home visit, home safety assessment, bottles [...] Choices Program 0 minutes spent in direct [id number] discussion today, Sondra Aguilera RN documented in this encounter Plan of Treatment Upcoming Encounters Date Type Specialty Care Team Description 11/01/2022 Office Visit Family Medicine Luz Morales CRNP [address] [place] [address] 11/21/2022 Imaging Radiology 11/27/2022 Office Visit Gastroenterology Yumiko Gonzalez CRNP [address] [place] [address] 12/23/2022 Office Visit Cardiology Rodo Romero, [address] [place] [address] 12/24/2022 Office Visit Neurology [facility]arsha Wright, DO [address] [facility] [address] 06/17/2023 Office Visit Sleep Disorders Ariana Beltran, [address] [place] [address] Scheduled Procedures Name Priority Associated Diagnoses Date/Ti [...] EXAM 02/13/2023 02/13/2022, 05/09/2021 HbA1c 03/16/2023 09/13/2022, 10/0 [...] 01/17/2005 LUNG CANCER SCREENING - USE SMARTSET 94569 Completed 07/19/2022, 07/06/2021, 04/11/2020, Additional history exists GARDASIL-HPV IMMUNIZATION SERIES Aged Out No longer eligible based on patient's age to complete this topic Hepatitis B Aged Out No longer eligi ble based on patient's age to complete this topic documented as of this encounter Medical Devices Implanted Type Area Direct Care Staffer Device Identifier Shelf Expiration Date Model / Serial / Lot Wire Mailman - [id number] Implanted:Qty: 1 on 06/24/2022 by Natalie Sheffield IV, MD at [facility] [employer] : [place] IV [id number] 12/13/2023 [id number] documented as of this encounter Visit Diagnoses [...] the patient have Health Care Power of Space Control Supervisor? No Healthcare Agents on File Name Relationship Healthcare Agent Relationshi p Communication Enid Patel Adult Child Health Care Repr esentative (appointed verbally by patient or by statute hierarchy) Care Teams Goldsmith Apprentice Relationship Specialty Start Date End Date Luz Morales CRNP [address] [place] [address] PCP - General Nurse Practitioner 09/27/20 documented as of this encounter
--- OUTSIDE RECORDS SUMMARY | 2023-01-23 19:38 | External Medical Summary ---
Author Name Unknown Address Unknown Organization [id number]:LABORATORY [facility] - [address] [place] [address] Laboratory Report Ordering Provider Test Date Status JANY FLOOD 09/13/2022 13:56:45 Final Observation Date Value Abnormality Reference (Units ) Status Folic Acid 09/13/2022 13:56:45 13.3 >4.5 (ng/ mL) Final Performing Location [facility] - [address] [place] [address]
--- OUTSIDE RECORDS SUMMARY | 2023-01-23 19:38 | External Medical Summary | Summary of Care ---
Author Name Unknown Organization [facility] Address [address] [place] [address] Phone [phone] Care Team Providers Care Dry End Tester Name Role Phone Luz Moraleslle DONNA Primary Care Provider Reason for Visit * Reason Comments Outpatient Testing Encounter Details Date Type Department Care Team Description 09/13/2022 Laboratory Laboratory [facility] [address] [place] [phone] [place], Lab Scenery [address] [place] [address] Type 2 diabetes mellitus without complication, without long-term current use of insulin ([facility]) Allergies Active Allergy Reactions Severity Noted Date Comments Erythromycin Rash 12/14/1999 Ibuprofen Rash 08/05/2011 Latex Rash 03/20/2007 Latex High 07/24/2022 Other reaction(s): RASH Sulfa Antibiotics Rash 12/14/1999 documented as of this encounter (statuses as of 09/13/2022) Medications Medication Sig Dispensed Refills Start Date [...] the evening. 60 Capsule 1 09/13/2022 Active documented as of this encounter (statuses as of 09/13/2022) Active Problems Problem Noted Date COPD, group [...] as of this encounter (statuses as of 09/13/2022) Resolved Problems Problem Noted Date Resolved Date [...] as of this encounter (statuses as of 09/13/2022) Immunizations Name Administration Dates Next Due COVID-19 mRNA, LNP-s, No Pre serve, 2-Dose Series (Pfizer) 12/13/2020,05/30/2020,05/02/2020 COVID-19, LNP-s, No Preserve , Keith-sucrose, Ages 12+ (Pfizer) 07/04/2021 Pneumococcal Conjugate Vacci ne, 20-valent ([id number]) 02/13/2022 Pneumococcal Polysaccharide PPV23 (Pneumovax) 02/05/2020 Seasonal [...] Encounters Date Type Specialty Care Team Description 09/17/2022 Imaging Radiology 11/01/2022 Office Visit Family Medicine Luz Morales CRNP [address] [place] [address] 11/21/2022 Imaging Radiology 11/27/2022 Office Visit Gastroenterology Yumiko Gonzalez CRNP [address] [place] [address] 12/23/2022 Office Visit Cardiology Rodo Romero DO [address] [place] [address] 12/24/2022 Office Visit Neurology Harsha Wright, DO [address] [place] [address] 06/17/2023 Office Visit Sleep Disorders Devin Arianacandido Montesinos, DO [address] [place] [address] Pending Results Name Type Priority Associated Diagnoses Date /Time HEMOGLOBIN A1C Lab Routine Type 2 diabetes mellitus without complication, without long-term current use of insulin (HCC) 09/13/2022 1:56 PM EDT Scheduled Procedures Name Priority Associated Diagnoses Date/Ti [...] 01/17/2005 LUNG CANCER SCREENING - USE SMARTSET 08160 Completed 07/19/2022, 07/06/2021, 04/11/2020, Additional history exists GARDASIL-HPV IMMUNIZATION SERIES Aged Out No longer eligible based on patient's age to complete this topic Hepatitis B Aged Out No longer eligi ble based on patient's age to complete this topic documented as of this encounter Medical Devices Implanted Type Area Nail Technician Device Identifier Shelf Expiration Date Model / Serial / Lot Wire Mailman - [id number] Implanted:Qty: 1 on 06/24/2022 by Natalie Sheffield IV, MD at [facility] [employer] : PERIPHL IV [id number] 12/13/2023 [id number] documented as of this encounter Visit Diagnoses Diagnosis Type 2 diabetes mellitus without complication, without long-term current use of insulin (HCC) documented in this encounter Advance Directives Latest [...] the patient have Health Care Power of Director Of Media? No Healthcare Agents on File Name Relationship Healthcare Agent [facility] p Communication Enid Patel Adult Child Health Care Repr esentative (appointed verbally by patient or by statute hierarchy) Care Teams Dry End Tester Relationship Specialty Start Date End Date Luz Morales CRNP [address] [place] [address] PCP - General Nurse Practitioner 09/27/20 documented as of this encounter
--- OUTSIDE RECORDS SUMMARY | 2023-01-23 19:38 | External Medical Summary ---
Author Name Unknown Address Unknown Organization K01:[facility] - [address] [place] [address] Laboratory Report Ordering Provider Test Date Status JANY FLOOD 09/13/2022 13:56:45 Final Observation Date Value Abnormality Reference (Units ) Status Vitamin B12 09/13/2022 13:56:45 689 033-6240 (pg/mL) Final Performing Location [facility] - [address] [place] [address]
--- OUTSIDE RECORDS SUMMARY | 2023-01-23 19:38 | External Medical Summary | Summary of Care ---
Author Name Unknown Organization [facility] Address [address] [place] [address] Phone [phone] Care Team Providers Care Automatic I Threading Machine Feeder Name Role Phone Luz Morales Christel THOMPSON Primary Care Provider Reason for Visit * Reason Comments Outpatient Testing Encounter Details Date Type Department Care Team Description 09/17/2022 Laboratory Laboratory, [facility] [address] [place] [address] [facility] [address] [place] [address] Type 2 diabetes mellitus without complication, without long-term current use of insulin (HCC) Allergies Active Allergy Reactions Severity Noted Date Comments Erythromycin Rash 12/14/1999 Ibuprofen Rash 08/05/2011 Latex Rash 03/20/2007 Latex High 07/24/2022 Other reaction(s): RASH Sulfa Antibiotics Rash 12/14/1999 documented as of this encounter (statuses as of 09/17/2022) Medications Medication Sig Dispensed Refills Start Date [...] as of this encounter (statuses as of 09/17/2022) Active Problems Problem Noted Date COPD, group [...] as of this encounter (statuses as of 09/17/2022) Resolved Problems Problem Noted Date Resolved Date [...] as of this encounter (statuses as of 09/17/2022) Immunizations Name Administration Dates Next Due COVID-19 mRNA, LNP-s, No Pre serve, 2-Dose Series (Pfizer) 12/13/2020,05/30/2020,05/02/2020 COVID-19, LNP-s, No Preserve , Keith-sucrose, Ages 12+ (Pfizer) 07/04/2021 Pneumococcal Conjugate Vacci ne, 20-valent ([id number]) 02/13/2022 Pneumococcal Polysaccharide PPV23 (Pneumovax) 02/05/2020 Seasonal [...] Medicine Luz Morales CRNP [address] [place] [address] 11/21/2022 Imaging Radiology 11/27/2022 Office Visit Gastroenterology Yumiko Gonzalez CRNP [address] [place] [address] 12/23/2022 Office Visit Cardiology Rodo Romero DO [address] [place] [address] 12/24/2022 Office Visit Neurology Harsha Wright, DO [address] [place], [place] [address] 06/17/2023 Office Visit Sleep Disorders Ariana Beltran, DO [address] [place] [address] Pending Results Name Type Priority Associated Diagnoses Date /Time ALBUMIN / CREATININE RATIO, URINE Lab Routine Type 2 diabetes mellitus without complication, without long-term current use of insulin (HCC) 09/17/2022 10:52 AM EDT Scheduled Procedures Name Priority Associated Diagnoses Date/Ti me COLONOSCOPY FLEXIBLE PROXIMA L DIAGNOSTIC Recall History of colonic polyps Health Maintenance Due Date Last Done Comments Alpha-1 Antitrypsin 1972 DIABETES-EYE EXAM 06/26/2016 06/27/2015, , 05/30/2015 Albumin/Creatinine Ratio 05/09/2022 05/09/2021, 06/02 Depression Screening, Annual for Pts 12 and [...] 09/14/2023 09/13/2022, 08/02, 06/24/2022, Additional history exists COLONOSCOPY-EVERY 5 YRS AGES 18-100 03/30/2024 03/30/2019, [...] 01/17/2005 LUNG CANCER SCREENING - USE SMARTSET 42060 Completed 07/19/2022, 07/06/2021, 04/11/2020, Additional history exists GARDASIL-HPV IMMUNIZATION SERIES Aged Out No longer eligible based on patient's age to complete this topic Hepatitis B Aged Out No longer eligi ble based on patient's age to complete this topic documented as of this encounter Medical Devices Implanted Type Area Wire Sawyer Device Identifier Shelf Expiration Date Model / Serial / Lot Wire Mailman - [id number] Implanted:Qty: 1 on 06/24/2022 by Natalie Sheffield IV, MD at [facility] [employer] : PERIPHL IV [id number] 12/13/2023 [id number] documented as of this encounter Visit Diagnoses [...] the patient have Health Care Power of Fishing Instructor? No Healthcare Agents on File Name Relationship Healthcare Agent Relationshi p Communication Enid Jorge Adult Child Health Care Repr esentative (appointed verbally by patient or by statute hierarchy) Care Teams Automatic I Threading Machine Feeder Relationship Specialty Start Date End Date Luz Morales CRNP [address] [place] [address] PCP - General Nurse Practitioner 09/27/20 documented as of this encounter
--- OUTSIDE RECORDS SUMMARY | 2023-01-23 19:38 | External Medical Summary | Summary of Care ---
Author Name Unknown Organization [facility] Address [address] [place] [address] Phone [phone] Care Team Providers Care Fuel Cell Assembler Name Role Phone Nicci Moralessa Christel THOMPSON Primary Care Provider Reason for Referral * Evaluate & Treat - Unlimited Visits (Within 30 days (routine)) - Authorized Specialty Diagnoses / Procedures Referred By Steven perkins Referred To Contact Neurology Diagnoses History of right MCA stroke Garret Perry MD [address] [place] [address] Referral ID Status Reason Start Date Expiration Date Visits Requested Visits Authorized [id number] Authorized Specialty Services Required 08/30/2022 999 999 Question Answer Referral Priority Within 30 days (routine) [facility] NEUROLOGY REFERRAL QUESTIONS Stroke Does the patient's condition allow them to wait to be seen by a specialist or should they be seen by first available provider? Or is this a follow up with established provider? First Available * Evaluate & Treat - Unlimited Visits (Within 3 days (urgent)) - Authorized Specialty Diagnoses / Procedures Referred By Steven perkins Referred To Contact Physical Therapy / Physical Medicine And Rehab Diagnoses History of right MCA stroke Garret Perry MD [address] [place] [address] Referral ID Status Reason Start Date Expiration Date Visits Requested Visits Authorized [id number] Authorized Specialty Services Required 08/30/2022 999 999 Question Answer Referral Priority Within 3 days (urgent) Reason for Visit * Reason Onset Date Comments Hospital Follow-Up [facility] 08/16-08/02 cerebral infarct d'c IP Rehb Hospital Follow-Up 08/30/2022 Encounter Details Date Type Department Care Team Description 08/30/2022 Office Visit [facility] [address] [place] [id number] Garret Perry MD [address] [place] [id number] Hospital discharge follow-up*; History of right MCA stroke; Type 2 diabetes mellitus with hemoglobin A1c goal of less than 8.0% (HCC); Dyslipidemia; Asthma-COPD overlap syndrome (HCC); Persistent atrial fibrillation (HCC); Non-ischemic cardiomyopathy (HCC); Morbid obesity (HCC); Depression with anxiety Allergies Active Allergy [...] as directed 118.28 mL 0 08/30/2022 Active acetaminophen (TYLENOL) 325 MG TabletIndications :Persistent atrial fibrillation (HCC) Take 2 Tabs by mouth every 6 hours as needed for Pain. 30 Tab 0 03/11/2018 3 Discontinu ed(Dischar ged) Ibuprofen 200 MG Oral Tablet Take by mouth every 4 hours as needed (headache). 0 3 Discontinu ed(Dischar ged) documented as of this encounter (statuses as [...] mRNA, LNP-s, No Pre serve, 2-Dose Series (Genelux) 12/13/2020,05/30/2020,05/02/2020 COVID-19, LNP-s, No Preserve , Keith-sucrose, Ages 12+ (Pfizer) 07/04/2021 Pneumococcal Conjugate Vacci ne, 20-valent ([id number]) 02/13/2022 Pneumococcal Polysaccharide PPV23 (Pneumovax) 02/05/2020 Seasonal [...] Sign Reading Time Taken Comments Blood Pressure 150/66 08/30/2022 3:04 PM EDT Pulse 61 08/30/2022 3:04 PM EDT Temperature 37.3 C (99.2 F) 08/30/2022 3:04 PM ED T Respiratory Rate 18 08/30/2022 3:04 PM EDT Oxygen Saturation 96% 08/30/2022 3:04 PM EDT Inhaled Oxygen Concentration - - Weight 109.6 kg (241 lb 9.6 oz) 08/30/2022 3:04 PM EDT Height - - Body Mass Index 39.29 07/24/2022 8:30 AM EDT documented in this [...] as of this encounter Progress Notes * Garret Perry MD - 08/30/2022 3:14 PM EDT SUBJECTIVE: Kimberly Hernandez is a 67 year old female. Chief Complaint Patient presents with Hospital Follow-Up [facility] 08/16-08/20/2022 cerebral infarct d'c IP Rehb Hospital Follow-Up Recent Admission: Patient was recently admitted to [facility]. The date of discharge was 08/20/22. Discharge report receivedand reviewed. HPI: Hospital follow up for right MCA stroke that occurred after cardioversion. She has some mild residual weakness but is doing well overall. In fact, she drove to this visit today. Medications reviewed. She does not need refills. I will get her set up with [facility] for rehab. Patient Active Problem List Diagnosis Code Mitral regurgitation I34.0 MEDICATION USE AGREEMENT [id number] Persistent atrial fibrillation ([facility]) I48.19 LILI (obstructive sleep apnea) G47.33 Non-ischemic cardiomyopathy ([facility]) I42.8 Morbid obesity ([facility]) E66.01 Asthma-COPD overlap syndrome ([facility]) J44.9 Type 2 diabetes mellitus with hemoglobin A1c goal of less than 8.0% ([facility]) E11.9 Dyslipidemia E78.5 Depression with anxiety F41.8 History of right MCA stroke Z86.73 Current Outpatient Medications Medication Sig Dispense Refill [...] for Other (allergy symptoms).) 30 Tab 3 levalbuterol (XOPENEX) 1.25 MG/3ML nebulizer solution Inhale [...] Apply to HANDS DAILY) 350 g 1 buPROPion HCl ER (XL) 300 MG Oral Tablet Extended Release 24 Hour (Wellbutrin XL) Take 1 Tabletby mouth in the morning. 90 Tablet 1 metFORMIN HCl 500 MG Oral Tablet (Glucophage) Take 1 Tablet by mouth 2 times a day with morningand evening meals. (Patient taking differently: Take 1 Tablet by mouth 2 times a day with morning and evening meals.) 180 Tablet 2 Mepolizumab 100 MG/ML Subcutaneous Solution Auto-injector INJECT 1 ML UNDER THE SKIN EVERY 4 WEEKS (Patient taking differently: No sig reported) 1 mL 11 Atorvastatin Calcium 40 MG Oral Tablet (Lipitor) Take 1 Tablet by mouth in the morning. (Patient taking differently: Take 1 Tablet by mouth at bedtime.) 100 Tablet 3 Montelukast Sodium 10 MG Oral Tablet (Singulair) Take 1 Tablet by mouth in the morning. (Patient taking differently: Take 1 Tablet by mouth at bedtime.) 90 Tablet 3 Losartan Potassium 50 MG Oral Tablet (Cozaar) TAKE ONE TABLET BY MOUTH EVERY MORNING (Patient taking differently: No sig reported) 90 Tablet 3 Apixaban 5 MG Oral Tablet (Eliquis) Take 1 Tablet by mouth in the morning and 1 Tablet before bedtime. 180 Tablet 3 Ciclopirox 8 % External Solution Apply over nail and surrounding skin. Apply daily over previous coat. After seven (7) days, may remove with alcohol and continue cycle. 18 mL 1 Metoprolol Succinate ER 100 MG Oral Tablet Extended Release 24 Hour (toPROL XL) One tablet by mouth 2 times per day 180 Tablet 3 Amiodarone HCl 200 MG Oral Tablet (Cordarone) Take 1 Tablet by mouth in the morning and 1 Tablet before bedtime. 60 Tablet 2 Trulicity 4.5 MG/0.5ML Subcutaneous Solution Pen-injector (Dulaglutide) Inject 4.5 mg under theskin once a week. 6 mL 1 Fluocinolone Acetonide Scalp 0.01 % External Oil Apply to scalp once weekly over night as directed 118.28 mL 0 EPINEPHrine, anaphylaxis, (EPI-PEN) 0.3 MG/0.3ML SOAJ injection For a severe reaction: Inject in outer thigh following instructions on package and go to the Emergency room. 1 Box Dosing Unit 3 Nebulizers (NEBULIZER COMPRESSOR) MISC Inhale via nebulizer. With tubing please. Use as directed. Lifetime need. 1 Each 1 Mupirocin 2 % External Ointment (Bactroban) Apply to the nose twice daily (Patient not taking: Reported on 08/30/2022) 22 g 4 Albuterol Sulfate HFA 108 (90 Base) MCG/ACT Inhalation Aerosol Solution Inhale by mouth 2 Puffsevery 4 hours as needed for Shortness of Breath or Wheezing. 18 g 5 oxyCODONE-Acetaminophen 5-325 MG Oral Tablet (Percocet) Take 1 Tablet by mouth every 8 hours asneeded for Other (headache). On backorder at pharmacy, has not started taking yet. 08/30/22. No current facility-administered medications for this visit. Current and discharge medications have been reconciled. Review of patient's allergies indicates: Allergen Reactions Erythromycin Rash Ibuprofen Rash Latex Rash Sulfa Antibiotics Rash OBJECTIVE: BP 150/66 (BP Site: Left Arm, BP Position: Sitting, BP Cuff Size: Regular) | Pulse 61 | Temp 37.3 C (99.2 F) | Resp 18 | Wt 109.6 kg (241 lb 9.6 oz) | LMP 11/06/2006 | SpO2 96% | BMI 39.29 kg/m| BSA 2.25 m PHYSICAL EXAM: General: alert, no distress and obese Eye Exam: PERRLA, extraocular movements intact, conjunctiva are pink and non- injected, sclera clear Heart: regular rate & rhythm, no murmur and no gallops Lungs: chest symmetric with normal AP diameter, no chest deformities noted, no chest wall tenderness, lungs clear to auscultation Neuro Exam: alert & oriented x 3 with fluent speech, no focal motor/sensory deficits; using cane Skin: skin color, texture, turgor are normal, no rashes or significant lesions ASSESSMENT: Hospital discharge follow-up (Primary) - DISCH MED RECON CUR MED LIS History of right MCA stroke - PHYSICAL THERAPY REFERRAL OP - NEUROLOGY REFERRAL OP Type 2 diabetes mellitus with hemoglobin A1c goal of less than 8.0% (HCC) Dyslipidemia Asthma-COPD overlap syndrome (HCC) Persistent atrial fibrillation (HCC) Non-ischemic cardiomyopathy (HCC) Morbid obesity (HCC) Depression with anxiety Other orders - Fluocinolone Acetonide Scalp 0.01 % External Oil; Apply to scalp once weekly over night as directed PLAN: Continue present medication(s): Follow up as needed. Garret Perry MD documented in this encounter Plan of Treatment Upcoming Encounters Date Type Specialty Care Team Description 11/01/2022 Office Visit Family Medicine Luz Morales CRNP [address] [place] [id number] 11/21/2022 Imaging Radiology 11/27/2022 Office Visit Gastroenterology Yumiko Gonzalez CRNP [address] [place] [address] 12/23/2022 Office Visit Cardiology Rodo Romero, DO [address] [place] [address] 02/25/2023 Office Visit Neurology Harsha Wright, DO [address] [place] [address] 06/17/2023 Office Visit Sleep Disorders Ariana Beltran, DO [address] [place] [id number] Scheduled Procedures Name Priority Associated Diagnoses Date/Ti me COLONOSCOPY FLEXIBLE PROXIMA L DIAGNOSTIC Recall History of colonic polyps Scheduled Referrals Name Type Priority Associated Diagnoses Orde r Schedule PHYSICAL THERAPY REFERRAL OP Referral Within 3 days (urgent) History of right MCA stroke Ordered: 08/30/2022 NEUROLOGY REFERRAL OP Referral Within 30 days (routine) History of right MCA stroke Ordered: 08/30/2022 Health Maintenance Due Date Last Done Comments Alpha-1 Antitrypsin 1972 DIABETES-EYE EXAM 06/26/2016 06/27/2015, , 05/30/2015 Albumin/Creatinine Ratio 05/09/2022 05/09/2021, 06/02 HbA1c 06/03/2022 12/03/2021, 05/0 06/2021, 02/06/2021, Additional history exists Depression Screening, Annual for Pts 12 and Over 08/14/2022 08/14/2021 Mammogram 08/14/2022 08/14/2021, 06/0 11/2020, 06/10/2018, Additional history exists DIABETES-FOOT EXAM [...] 01/17/2005 LUNG CANCER SCREENING - USE SMARTSET [id number] Completed 07/19/2022, 07/06/2021, 04/11/2020, Additional history exists GARDASIL-HPV IMMUNIZATION SERIES Aged Out No longer eligible based on patient's age to complete this topic Hepatitis B Aged Out No longer eligi ble based on patient's age to complete this topic documented as of this encounter Medical Devices Implanted Type Area Consulting Marine Engineer Device Identifier Shelf Expiration Date Model / Serial / Lot Wire Mailman - [id number] Implanted:Qty: 1 on 06/24/2022 by Natalie Sheffield IV, MD at [facility] [employer] : PERIPHL IV [id number] 12/13/2023 [id number] documented as of this encounter Visit Diagnoses Diagnosis Hospital discharge follow-up- Primary Other follow-up examination History of right MCA stroke Transient ischemic attack (TIA), and cerebral infarction without residual deficits Type 2 diabetes mellitus with hemoglobin A1c goal of less than 8.0% (HCC) Dyslipidemia Other and unspecified hyperlipidemia Asthma-COPD overlap syndrome (HCC) Persistent atrial fibrillation (HCC) Atrial fibrillation Non-ischemic cardiomyopathy (HCC) Other primary cardiomyopathies Morbid obesity (HCC) Morbid obesity Depression with anxiety Dysthymic disorder documented in [...] the patient have Health Care Power of Business Development Coordinator? No Healthcare Agents on File Name Relationship Healthcare Agent Relationshi p Communication Enid Patel Adult Child Health Care Repr esentative (appointed verbally by patient or by statute hierarchy) Care Teams Fuel Cell Assembler Relationship Specialty Start Date End Date Luz Morales CRNP [address] [place] [address] PCP - General Nurse Practitioner 09/27/20 documented as of this encounter"
--- OUTSIDE RECORDS SUMMARY | 2023-01-23 19:38 | External Medical Summary ---
Author Name Unknown Address Unknown Organization [id number]:[facility] [address] [place] [address] Laboratory Report Ordering Provider Test Date Status JANY FLOOD 09/13/2022 13:56:45 Final Observation Date Value Abnormality Reference (Units ) Status BUN 09/13/2022 13:56:45 20 6-20 (mg/dL) Final Creatinine 09/13/2022 13:56:45 1.2 Above high normal 0.5-1.0 (mg/dL) Final Glomerular filtration rate/1.73 sq M.predicted [Volume Rate/Area] in Serum, Plasma or Blood by Creatinine-based formula (CKD-EPI) 09/13/2022 13:56:45 50 Below low normal >=60 (mL/min) Final eGFR is calculated based on the CKD-EPI 2020 equation SODIUM 09/13/2022 13:56:45 142 135-146 (m mol/L) Final Potassium 09/13/2022 13:56:45 4.7 3.5-5.1 (m mol/L) Final Cl 09/13/2022 13:56:45 104 98-107 (mm ol/L) Final CO2 09/13/2022 13:56:45 22 22-32 (mmo l/L) Final Anion gap 09/13/2022 13:56:45 16 Above high normal 7- 15 (mmol/L) Final Glucose 09/13/2022 13:56:45 135 Above high normal 70 -120 (mg/dL) Final Albumin 09/13/2022 13:56:45 4.5 3.8-5.0 (g /dL) Final AST (Aspartate aminotransferase) 09/13/2022 13:56:45 29 10-35 (U/L) Fin al Alk Phos 09/13/2022 13:56:45 58 35-130 (U/ L) Final Bilirubin, Total 09/13/2022 13:56:45 0.6 <=1 .2 (mg/dL) Final Calcium 09/13/2022 13:56:45 9.9 8.4-10.2 ( mg/dL) Final Protein 09/13/2022 13:56:45 6.8 6.0-8.3 (g /dL) Final ALT (Alanine aminotransferase) 09/13/2022 13:56:45 29 10-35 (U/L) Leonardo chappell Performing Location [facility] [address] [place] [address]
--- OUTSIDE RECORDS SUMMARY | 2023-01-23 19:38 | External Medical Summary | Summary of Care ---
Author Name Unknown Organization [facility] Address [address] [place] [address] Phone [phone] Care Team Providers Care Road Engineer Name Role Phone Luz Morales Christel THOMPSON Primary Care Provider Reason for Referral * Precert (Within 10 days (routine)) - Pending Review Specialty Diagnoses / Procedures Referred By Steven perkins Referred To Contact Radiology Diagnoses Migraine without aura and without status migrainosus, not intractable Acute ischemic right MCA stroke (HCC) Memory loss Procedures CT HEAD/BRAIN WO CONTRAST Harsha Wright DO [address] [place] [address] Referral ID Status Reason Start Date Expiration Date V isits Requested Visits Authorized [id number] Pending Review 09/13/2022 999 999 Reason for Visit * Reason Comments NEW PATIENT Referred by [facility] for stroke on 08/14/22 * Evaluate & Treat - Unlimited Visits (Within 30 days (routine)) - Authorized Specialty Diagnoses / Procedures Referred By Steven perkins Referred To Contact Neurology Diagnoses History of right MCA stroke Garret Perry MD [address] [place] [address] Referral ID Status Reason Start Date Expiration Date Visits Requested Visits Authorized [id number] Authorized Specialty Services Required 08/30/2022 999 999 Encounter Details Date Type Department Care Team Description 09/13/2022 Office Visit Neurology [employer] [address] [facility] [place] [address] Harsha Wright, [address] [place] [address] Migraine without aura and without status migrainosus, not intractable*; Acute ischemic right MCA stroke (HCC); Memory loss Allergies Active Allergy Reactions Severity Noted Date [...] mRNA, LNP-s, No Pre serve, 2-Dose Series (GreenPal) 12/13/2020,05/30/2020,05/02/2020 COVID-19, LNP-s, No Preserve , Keith-sucrose, Ages 12+ (Pfizer) 07/04/2021 Pneumococcal Conjugate Vacci ne, 20-valent ([id number]) 02/13/2022 Pneumococcal Polysaccharide PPV23 (Pneumovax) 02/05/2020 Seasonal [...] Sign Reading Time Taken Comments Blood Pressure 128/60 09/13/2022 1:00 PM EDT Pulse 52 09/13/2022 1:00 PM EDT Temperature 36.5 C (97.7 F) 09/13/2022 1:00 PM ED T Respiratory Rate 16 09/13/2022 1:00 PM EDT Oxygen Saturation 95% 09/13/2022 1:00 PM EDT Inhaled Oxygen Concentration - - Weight 107.5 kg (237 lb) 09/13/2022 1:00 PM EDT Height - - Body Mass Index 38.54 07/24/2022 8:30 AM EDT documented in this [...] Progress Notes * Harsha Wright, DO - 09/13/2022 1:19 PM EDT HISTORY AND PHYSICAL EXAMINATION [place] [address] NAME: Kimberly Hernandez Date of : 1955 Date of Visit: 09/13/22 Chief Complaint: Chief Complaint Patient presents with NEW PATIENT Referred by [facility] for stroke on 08/14/22 HPI: A 67-year-old female with a past medical history of atrial fibrillation status post cardioversion on 08/14 anticoagulated on Eliquis, hypertension, obstructive sleep apnea on CPAP, hyperlipidemia, COPD, and type 2 diabetes referred for evaluation of post stroke follow-up. Consultation was requested by Dr. Perry who will receive a copy this note. Patient presents alone today. Patient was admitted on August 16, 2022 at [facility] for left leg weakness status post a fall x2. She woke on the morning of August 16 around 5:00 a.m. when she fell and was unable to get up. She went cardioversionthe day prior due to persistent AFib that resulted in normal sinus rhythm. She is been on Eliquis uninterrupted. Since the fall she has been having headaches as well. Describes it as a daily throbbing headache associated nausea and light sensitivity. She does have a history of migraine headaches. Upon admission she was noted and found to have a right MCA embolic appearing stroke. Thought to be cardioembolic given recent cardioversion. She is been compliant with her Eliquis her LDL cholesterol was 63. She has had improvement in her symptoms since her stroke. She denies any loss of awareness orloss of time. Denies any seizure history. She denies any new or worsening symptoms. She does ambulate with a cane since her stroke. HOME MEDICATIONS : Current Outpatient Medications Medication [...] for Other (allergy symptoms).) 30 Tab 3 Nebulizers (NEBULIZER COMPRESSOR) MISC Inhale via [...] Apply to HANDS DAILY) 350 g 1 Albuterol Sulfate HFA 108 (90 Base) [...] 0 Dulaglutide 4.5 MG/0.5ML Subcutaneous Solution Pen-injector (Smore) INJECT 4.5 MG UNDER THESKIN ONCE WEEKLY [...] DAY IN THE MORNING 90 Tablet 1 EPINEPHrine, anaphylaxis, (EPI-PEN) 0.3 MG/0.3ML SOAJ injection For a severe reaction: Inject in outer thigh following instructions on package and go to the Emergency room. (Patient not taking: Reported on 09/13/2022) 1 Box Dosing Unit 3 Mupirocin 2 % External Ointment (Bactroban) Apply to the nose twice daily (Patient not taking: Reported on 08/30/2022) 22 g 4 No current facility-administered medications for this visit. Review of patient's allergies indicates: Allergen Reactions Latex Other reaction(s): RASH Erythromycin Rash Ibuprofen Rash Latex Rash Sulfa Antibiotics Rash Past Medical History: Diagnosis Date ACUTE OR [...] performed by Nancy Moreno DO at [facility] EGD, FLEXIBLE,W/ENDOSCOPIC US 04/19/2022 reflux esophagitis, GB sludge / [facility] [place] ELECTROPHYSIOLOGY EVAL, ATRIAL FIB, PULMONARY VEIN ISOL Bilateral 03/10/2018 ELECTROPHYSIOLOGY EVAL, ATRIAL FIB, PULMONARY VEIN ISOL performed by David Bains MD at [facility] ELECTROPHYSIOLOGY EVAL, ATRIAL FIB, PULMONARY VEIN ISOL Bilateral 06/24/2022 PVI RADIOFREQUENCY CATHETER ABLATION performed by Natalie Sheffield IV, MD at [facility] LAP,ABDOMEN W/ASPIRATE age 29 ovarian cyst Family History Problem Relation Age of Onset Hypertension Mother Bipolar Disorder Mother Renal Hx Mother age 94 Other (Natural causes) Father age 94 No Known Problems Sister No Known Problems Brother Colon cancer Grandfather (Maternal) Neurological Disorder Sister migraines Breast Cancer Sister Bipolar Disorder Sister Diabetes Uncle (Unspecified) 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 PHYSICAL EXAMINATION: Vital Signs: BP 128/60 (BP Site: Right Arm, BP Position: Sitting) | Pulse 52 | Temp 36.5 C (97.7 F) (Tympanic) | Resp 16 | Wt 107.5 kg (237 lb) | LMP 11/06/2006 | SpO2 95% | BMI 38.54 kg/m | BSA 2.23 m EXAM: Constitutional: Appears stated age, no [...] reviewed and pertinent findings are indicated below: LDL cholesterol 63 Hemoglobin A1c 6.8 Lyme negative Review of prior Diagnostic Tests: Review of prior Radiology Studies: CTA of the head and CTA of the head and neck performed on 08/16/2022: No acute intracranial abnormality. No large vessel occlusion hemorrhage or apparent CVA. MRI of the brain without contrast performed on 08/16/2022: Showed diffusion restriction in the right MCA distribution consistent with an acute right MCA ischemic stroke. IMPRESSION / PLAN: Kimberly was seen today for new patient. Diagnoses and all orders for this visit: Migraine without aura and without status migrainosus, not intractable - CT HEAD/BRAIN WO CONTRAST; Future - Gabapentin 100 MG Oral Capsule (Neurontin); Take 1 Capsule by mouth in the morning and 1 Capsule in the evening. - COMPREHENSIVE METABOLIC PANEL - VITAMIN B12 - FOLIC ACID - VITAMIN B1 (THIAMINE), BLOOD, LC/MS/MS - TSH WITH FREE T4 IF INDICATED Acute ischemic right MCA stroke (HCC) - CT HEAD/BRAIN WO CONTRAST; Future - Gabapentin 100 MG Oral Capsule (Neurontin); Take 1 Capsule by mouth in the morning and 1 Capsule in the evening. - COMPREHENSIVE METABOLIC PANEL - VITAMIN B12 - FOLIC ACID - VITAMIN B1 (THIAMINE), BLOOD, LC/MS/MS - TSH WITH FREE T4 IF INDICATED Memory loss - CT HEAD/BRAIN WO CONTRAST; Future - Gabapentin 100 MG Oral Capsule (Neurontin); Take 1 Capsule by mouth in the morning and 1 Capsule in the evening. - COMPREHENSIVE METABOLIC PANEL - VITAMIN B12 - FOLIC ACID - VITAMIN B1 (THIAMINE), BLOOD, LC/MS/MS - TSH WITH FREE T4 IF INDICATED Kimberlee Hernandez is a pleasant 67-year-old female with multiple stroke risk factors including atrial fibrillation on Eliquis, hypertension, type 2 diabetes, hyperlipidemia, and obstructive sleep apnea on CPAP referred for evaluation of recent acute right MCA ischemic stroke diagnosed on August 16, 2022 status post a cardioversion for persistent atrial fibrillation. MRI of the brain confirmed acuteright embolic appearing MCA ischemic stroke. Since hospital discharge she has noted improvement in her left-sided numbness. She is now ambulating with a cane. However since her stroke she is developed new daily headache described as a throbbing severe pain associated nausea and light sensitivity. She does have a history of migraine headaches. She is using frequent rqlb-[id number] Tylenol and ibuprofen. Recommend starting gabapentin 100 mg twice daily for headache prophylaxis. In regards to herrecent stroke agree with continuing Eliquis for for secondary stroke prevention as well as Lipitor 40 mg daily. Her blood pressure 128/60 today which is at goal. Goal systolic blood pressure less than 140, diastolic blood pressure goal less than 90. Will obtain labs today including a vitamin B12, folic acid, thiamine, TSH given the recent or new memory difficulties. Will also arrange for repeat CT head given her recent embolic stroke as well as being on Eliquis to exclude a hemorrhagic conversion although this seems unlikely as her symptoms have improved. Otherwise I will plan to see her backin 3 months or sooner if needed. Thank you for allowing me to participate in her care. Harsha Wright DO documented in this encounter Nursing Notes * Moon Avitia LPN - 09/13/2022 1:00 PM EDT Chief Complaint Patient presents with NEW PATIENT Referred by [facility] for stroke on 08/14/22 documented in this encounter Plan of Treatment Upcoming Encounters Date Type Specialty Care Team Description 09/17/2022 Imaging Radiology 11/01/2022 Office Visit Family Medicine Luz Morales CRNP [address] [place] [id number] 11/21/2022 Imaging Radiology 11/27/2022 Office Visit Gastroenterology Yumiko Gonzalez CRNP [address] [place] [address] 12/23/2022 Office Visit Cardiology Rodo Romero DO [address] [place] [address] 12/24/2022 Office Visit Neurology Harsha Wright, DO [address] [place], [place] [address] 06/17/2023 Office Visit Sleep Disorders Ariana Beltran, DO [address] [place] [address] Pending Results Name Type Priority Associated Diagnoses Date /Time VITAMIN B12 Lab Routine Migraine without aura and without status migrainosus, not intractable Acute ischemic right MCA stroke (HCC) Memory loss 09/13/2022 1:56 PM EDT FOLIC ACID Lab Routine Migraine without aura and without status migrainosus, not intractable Acute ischemic right MCA stroke (HCC) Memory loss 09/13/2022 1:56 PM EDT VITAMIN B1 (THIAMINE), BLOOD, LC/MS/MS Lab Routine Migraine without aura and without status migrainosus, not intractable Acute ischemic right MCA stroke (HCC) Memory loss 09/13/2022 1:56 PM EDT TSH WITH FREE T4 IF INDICATED Lab Routine Migraine without aura and without status migrainosus, not intractable Acute ischemic right MCA stroke (HCC) Memory loss 09/13/2022 1:56 PM EDT Scheduled Orders Name Type Priority Associated Diagnoses Orde r Schedule CT HEAD/BRAIN WO CONTRAST Medical Imaging Routine Migraine without aura and without status migrainosus, not intractable Acute ischemic right MCA stroke (HCC) Memory loss Expected: 09/13/2022, Expires: 12/14/2022 Scheduled Procedures Name Priority Associated Diagnoses Date/Ti [...] YEAR FOR COPD 06/25/2023 06/24/2022 GFR 08/22/2023 09/13/2022, 06/03/2022, 06/24/2022, Additional history exists DXA Scan 08/28/2023 08/27/2016 [...] 01/17/2005 LUNG CANCER SCREENING - USE SMARTSET [id number] Completed 07/19/2022, 07/06/2021, 04/11/2020, Additional history exists GARDASIL-HPV IMMUNIZATION SERIES Aged Out No longer eligible based on patient's age to complete this topic Hepatitis B Aged Out No longer eligi ble based on patient's age to complete this topic documented as of this encounter Medical Devices Implanted Type Area Hostess Cashier Device Identifier Shelf Expiration Date Model / Serial / Lot Wire Mailman - [id number] Implanted:Qty: 1 on 06/24/2022 by Natalie Sheffield IV, MD at [facility] : [place] IV [id number] 12/13/2023 [id number] documented as of this encounter Procedures Procedure Name Priority Date/Time Associated Diagnosis Comments COMPREHENSIVE METABOLIC PANEL Routine 09/13/2022 1:56 PM EDT Migraine without aura and without status migrainosus, not intractable Acute ischemic right MCA stroke (HCC) Memory loss documented in this encounter Results * (ABNORMAL) COMPREHENSIVE METABOLIC PANEL (09/13/2022 1:56 PM EDT) BUN 20 6 - 20 mg/dL 09/13/2022 3:11 PM EDT [facility] 56 Creatinine 1.2(H) 0.5 - 1.0 mg/dL 09/13/2022 3:11 PM EDT [facility] 56 Estimated Glomerular Filtration Rate 50(L) >=60 mL/min 09/13/2022 3:11 PM EDT [facility] 56 Comment:eGFR is calculated b ased on the CKD-EPI 2020 equation Sodium 142 135 - 146 mmol/L 09/13/2022 3:11 PM EDT [facility] 56- Potassium 4.7 3.5 - 5.1 mmol/L 09/13/2022 3:11 PM EDT [facility] 56 Chloride 104 98 - 107 mmol/L 09/13/2022 3:11 PM EDT [facility] 56 CO2 22 22 - 32 mmol/L 09/13/2022 3:11 PM EDT [facility] 56 Anion Gap 16(H) 7 - 15 mmol/L 09/13/2022 3:11 PM EDT [facility] 56 Glucose 135(H) 70 - 120 mg/dL 09/13/2022 3:11 PM EDT [facility] 56 Albumin 4.5 3.8 - 5.0 g/dL 09/13/2022 3:11 PM EDT [facility] 56 AST 29 10 - 35 U/L 09/13/2022 3:11 PM EDT [facility] 56 Alkaline Phosphatase 58 35 - 130 U/L 09/13/2022 3:11 PM EDT [facility] Bilirubin, Total 0.6 <=1.2 mg/dL 09/13/2022 3:11 PM EDT [facility] Calcium 9.9 8.4 - 10.2 mg/dL 09/13/2022 3:11 PM EDT [facility] Protein 6.8 6.0 - 8.3 g/dL 09/13/2022 3:11 PM EDT [facility] 56 ALT 29 10 - 35 U/L 09/13/2022 3:11 PM EDT [facility] 56 Blood Venous blood specimen / Unknown Venipuncture / Unknown 09/13/2022 1:56 PM EDT 09/13/2022 1:56 PM EDT Harsha Wright DO LAB BLOOD OR DERABLES [facility] [address] [place] [address] documented in this encounter Visit Diagnoses Diagnosis Migraine without aura and without status migrainosus, not intractable- Primary Migraine without aura, without mention of intractable migraine without mention of status migrainosus Acute ischemic right MCA stroke (HCC) Unspecified cerebral artery occlusion with cerebral infarction Memory loss documented in this encounter Advance Directives Latest [...] the patient have Health Care Power of Windows Security Analyst? No Healthcare Agents on File Name Relationship Healthcare Agent [facility] p Communication Enid Patel Adult Child Health Care Repr esentative (appointed verbally by patient or by statute hierarchy) Care Teams Road Engineer Relationship Specialty Start Date End Date Luz Morales CRNP [address] [place] [address] PCP - General Nurse Practitioner 09/27/20 documented as of this encounter"
--- OUTSIDE RECORDS SUMMARY | 2023-01-23 19:38 | External Medical Summary ---
Author Name Unknown Address Unknown Organization [id number]:[facility] - [address] [facility] [address] Laboratory Report Ordering Provider Test Date Status AFSANEH TYSON 09/13/2022 13:56:45 Final Observation Date Value Abnormality Reference (Units ) Status HbA1C 09/13/2022 13:56:45 6.7 Above high normal 4. 0-5.6 (%) Final The use of HbA1c to monitor glycemic status is based on normal hemoglobin and HbA composition. This test should not be used in patients with abnormal hemoglobin that affects the half life of the red blood cell or the in vivo glycation rates. Glucose, estimated average 09/13/2022 13:56:45 146 Above high normal <126 (mg/dL) Leonardo chappell Performing Location [facility] [address] [facility] [address]
--- OUTSIDE RECORDS SUMMARY | 2023-01-23 19:39 | External Medical Summary | Summary of Care ---
Author Name Unknown Organization [facility] Address [address] [place] [address] Phone [phone] Care Team Providers Care Vice President Quality Assurance Name Role Phone Luz Morales Primary Care Provider Reason for Referral * Evaluate & Treat - Unlimited Visits (Within 10 days (routine)) - Authorized Specialty Diagnoses / Procedures Referred By Steven perkins Referred To Contact Physical Therapy / Physical Medicine And Rehab Diagnoses History of CVA (cerebrovascular accident) Brea Germain DO [address] [place] [address] Referral ID Status Reason Start Date Expiration Date Visits Requested Visits Authorized [id number] Authorized Specialty Services Required 08/27/2022 999 999 Question Answer Referral Priority Within 10 days (routine) Reason for Visit * Reason Onset Date Comments Home Health 08/27/2022 Encounter Details Date Type Department Care Team Description 08/27/2022 Telephone Family Practice [facility] [address] [place] [address] Luz Morales CRNP [address] [place] [address] Home Health Allergies Active Allergy Reactions Severity Noted Date Comments Erythromycin Rash 12/14/1999 Ibuprofen Rash 08/05/2011 Latex Rash 03/20/2007 Sulfa Antibiotics Rash 12/14/1999 documented as of this encounter (statuses as of 08/27/2022) Medications Medication Sig Dispensed Refills Start Date [...] 07/01/2022 Active Apixaban 5 MG Oral Tablet (Eliquis)Indicatio ns:Persistent atrial fibrillation (HCC) Take 1 Tablet by mouth in the morning and 1 Tablet before bedtime. 180 Tablet 3 07/08/2022 Active Trulicity 4.5 MG/0.5ML Subcutaneous Solution Pen-injector (Dulaglutide)Indic ations:Type 2 diabetes mellitus without complication, without long-term current use of insulin (HCC) Inject 4.5 mg under the skin once a week. 6 mL 1 07/25/2022 Active Ciclopirox 8 % External Solution Apply [...] before bedtime. 60 Tablet 2 08/01/2022 Active Hospital, Clinic, or Other Facility Administered Medication Ordered Dose Route Frequency Start Date End Date Status Albuterol Sulfate (Proventil) (5 MG/ML) 0.5% *conc* inhalation solution 2.5 mgIndications:Asthma with COPD (chronic obstructive pulmonary disease) ([facility]) 2.5 mg NEBULIZER PRN 05/16/2022 05/16/2023 Active Albuterol Sulfate (Proventil) (2.5 MG/3ML) 0.083% inhalation solution 2.5 mgIndications:Asthma with COPD (chronic obstructive pulmonary disease) ([facility]) 2.5 mg NEBULIZER PRN 05/16/2022 05/16/2023 Active documented as of this encounter (statuses as of 08/27/2022) Active Problems Problem Noted Date Onychomycosis 08/01/2022 Hypertensive heart disease without conge stive heart failure 02/01/2022 Overview: HTN +Concentric L ventricular hypertrophy Type 2 diabetes mellitus wit hout complication, without long-term current use of insulin 08/09/2020 AN (generalized anxiety disorder) 06/28 HTN (hypertension) 03/26/2019 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 or storm 03/26/2019 Severe persistent asthma without complic ation 09/28/2018 COPD, group B, by GOLD 2017 classificati on 08/10/2018 Overview: Per COPD GOLD Classification Idiopathic cardiomyopathy 07/02/2018 Current mild episode of major depressive disorder without prior episode 07/02/2018 Morbid obesity due to excess calories Concentric left ventricular hypertrophy 01/30/2018 LILI (obstructive sleep apnea) 01/29/2018 Incidental pulmonary nodule, > 3mm and < 8mm 11/02/2017 Persistent atrial fibrillation 8 MEDICATION USE AGREEMENT 03/28/2017 Dyslipidemia, goal LDL below 100 016 Abnormal EKG 06/13/2015 Mitral regurgitation 06/13/2015 Hollenhorst plaque 06/13/2015 Former tobacco use 06/13/2015 Abdominal bruit 06/13/2015 Osteoarthritis of hand 03/30/2007 ADVANCE DIRECTIVE INFORMATION 04/18/2005 Overview: No, Advance Directive brochure given to patient. ATTN DEFIC NONHYPERACT 01/20/2003 ACUTE OR UNSPEC. HEPATITIS C W/O MENTION OF HEPATIC COMA 03/06/2000 Overview: Follow with Dr. Zabala Was told she was in remission CLASSICAL MIGRAINE WITHOU MENTION OF INT RACTABLE MIGRAINE 03/06/2000 documented as of this encounter (statuses as of 08/27/2022) Resolved Problems Problem Noted Date Resolved Date Screening for diabetes mellitus 06/28/2020 08/09/2020 Severe persistent asthma with exacerbation 03/2304/19/2020 Centrilobular emphysema 01/30/2018 04/04/19 22 COPD, mild 10/28/2017 08/12/2018 Overview: Per COPD GOLD Classification Pulmonary nodule less than 6 cm determined by computed tomography of lung 07/29/2017 11/02/2017 Body mass index (BMI) of 40.0 to 44.9 in adult 1 10/28/2017 Overview: Per Obesity protocol #1 MCCARTNEY (dyspnea on exertion) 06/13/20152020 Asthma with severity to be determined 08/24/2009 09/06/2013 Overview: Per Asthma Taxonomy ICD-10 update of inactive term Tobacco use disorder 01/01/2009 06/02/2015 EXTRINSIC ASTHMA, UNSPEC 05/12/2003 010 Major depressive disorder 2016 Overview: ICD-10 update of inactive term documented as of this encounter (statuses as of 08/27/2022) Immunizations Name Administration Dates Next Due COVID-19 mRNA, LNP-s, No Pre serve, 2-Dose Series (Qritiqr) 12/13/2020,05/30/2020,05/02/2020 COVID-19, LNP-s, No Preserve , Keith-sucrose, Ages 12+ (Pfizer) 07/04/2021 HEP A - Hepatitis A (Adult > 18 yrs) 03/20/2004 IPV - Polio Virus Vaccine (Inact) 03/20/2004 Meningococcal Polysaccharide Vaccine (Menommune) 03/20/2004 PPD 05/25/2003,05/10/2003,07/02/1995 Pneumococcal Conjugate Vacci ne, 20-valent ([id number]) 02/13/2022 Pneumococcal Polysaccharide PPV23 (Pneumovax) 02/05/2020,01/17/2005 Seasonal [...] encounter Miscellaneous Notes * Telephone Encounter - Julianna Mcleod - 08/27/2022 2:41 PM EDT LM for patient to call back so we can find out where she would like to go for PT * Addendum Note - Brea Germain, DO - 08/27/2022 12:34 PM EDTAddended by: BREA GERMAIN on: 08/27/2022 12:34 PM Modules accepted: Orders * Telephone Encounter - Brea Germain DO - 08/27/2022 12:33 PM EDT Noted. PT referral placed SARAH Perry * Telephone Encounter - Constance Wang LPN - 08/27/2022 10:58 AM EDT HH Mitch Velez RN Calling from: [facility] Patient is declining: [facility] HH PT Patients reasoning - pt has 2 large dogs and unable to kennel or keep them separate when staff would come to the home. Pt would be interested in out patient Physical therapy. Pt has appt with Dr Perry scheduled for 08/30 to PCP documented in this encounter Plan of Treatment Upcoming Encounters Date Type Specialty Care Team Description 08/30/2022 Office Visit Family Medicine Garret Perry MD [address] [place] [address] 11/01/2022 Office Visit Family Medicine Luz Morales CRNP [address] [address] 11/21/2022 Imaging Radiology 11/27/2022 Office Visit Gastroenterology Yumiko Gonzalez CRNP [address] [place] [address] 12/23/2022 Office Visit Cardiology Rodo Romero DO [address] [address] 06/17/2023 Office Visit Sleep Disorders Ariana Beltran, DO [address] [place] [address] Scheduled Procedures Name Priority Associated Diagnoses Date/Ti me COLONOSCOPY FLEXIBLE PROXIMA L DIAGNOSTIC Recall History of colonic polyps Scheduled Referrals Name Type Priority Associated Diagnoses Orde r Schedule PHYSICAL THERAPY REFERRAL OP Referral Within 10 days (routine) History of CVA (cerebrovascular accident) Ordered: 08/27/2022 Health Maintenance Due Date Last Done Comments Alpha-1 Antitrypsin 1972 DIABETES-EYE EXAM 06/26/2016 06/27/2015, , 05/30/2015 Albumin/Creatinine Ratio 05/09/2022 05/09/2021, 06/02 HbA1c 06/03/2022 12/03/2021, 0 06/2021, 02/06/2021, Additional [...] 01/17/2005 LUNG CANCER SCREENING - USE SMARTSET [id number] Completed 07/19/2022, 07/06/2021, 04/11/2020, Additional history exists GARDASIL-HPV IMMUNIZATION SERIES Aged Out No longer eligible based on patient's age to complete this topic Hepatitis B Aged Out No longer eligi ble based on patient's age to complete this topic documented as of this encounter Medical Devices Implanted Type Area Home Service Consultant Device Identifier Shelf Expiration Date Model / Serial / Lot Wire Mailman - [id number] Implanted:Qty: 1 on 06/24/2022 by Natalie Sheffield IV, [place] [facility] [place] [place] PERIPHL [place] [id number] 12/13/2023 [id number] documented as of this encounter Visit Diagnoses Diagnosis History of CVA (cerebrovascular accident)- Primary Transient ischemic attack (TIA), and cerebral infarction without residual deficits documented in this encounter Advance Directives Latest [...] the patient have Health Care Power of Allergist? No Care Teams Vice President Quality Assurance Relationship Specialty Start Date End Date Luz Morales CRNP [address] [place] [address] PCP - General Nurse Practitioner 09/27/20 documented as of this encounter
--- OUTSIDE RECORDS SUMMARY | 2023-01-23 19:39 | External Medical Summary | Summary of Care ---
Author Name Unknown Organization [facility] Address [address] [place] [address] Phone [phone] Care Team Providers Care Management Accountant Name Role Phone Luz Morales Primary Care Provider Reason for Referral * Evaluate & Treat - Unlimited Visits (Within 10 days (routine)) - Authorized Specialty Diagnoses / Procedures Referred By Steven perkins Referred To Contact Physical Therapy / Physical Medicine And Rehab Diagnoses History of CVA (cerebrovascular accident) Brea Germain DO [address] [place] [address] Referral ID Status Reason Start Date Expiration Date Visits Requested Visits Authorized [id number] Authorized Specialty Services Required 08/27/2022 999 999 Question Answer Referral Priority Within 10 days (routine) Reason for Visit * Reason Onset Date Comments Home Health 08/27/2022 Encounter Details Date Type Department Care Team Description 08/27/2022 Telephone Family Practice [facility] [address] [place] [address] Luz Morales CRNP [address] [place] [address] Home Health Allergies Active Allergy Reactions Severity Noted Date Comments Erythromycin Rash 12/14/1999 Ibuprofen Rash 08/05/2011 Latex Rash 03/20/2007 Sulfa Antibiotics Rash 12/14/1999 documented as of this encounter (statuses as of 08/28/2022) Medications Medication Sig Dispensed Refills Start Date [...] Reported on 07/19/2022 acetaminophen (TYLENOL) 325 MG TabletIndications :Persistent atrial [...] 07/19/2022 Losartan Potassium 50 MG Oral Tablet (Cozaar)Indicatio [...] 07/01/2022 Active Apixaban 5 MG Oral Tablet (Eliquis)Indicati [...] once a week. 6 mL 1 07/25/2022 3 Discontinu ed(Refill) Hospital, Clinic, or Other Facility Administered Medication Ordered Dose Route Frequency Start Date End Date Status Albuterol Sulfate (Proventil) (5 MG/ML) 0.5% *conc* inhalation solution 2.5 mgIndications:Asthma with COPD (chronic obstructive pulmonary disease) ([facility]) 2.5 mg NEBULIZER PRN 05/16/2022 05/16/2023 Active Albuterol Sulfate (Proventil) (2.5 MG/3ML) 0.083% inhalation solution 2.5 mgIndications:Asthma with COPD (chronic obstructive pulmonary disease) ([facility]) 2.5 mg NEBULIZER PRN 05/16/2022 05/16/2023 Active documented as of this encounter (statuses as of 08/28/2022) Active Problems Problem Noted Date Onychomycosis 08/01/2022 [...] as of this encounter (statuses as of 08/28/2022) Resolved Problems Problem Noted Date Resolved Date [...] as of this encounter (statuses as of 08/28/2022) Immunizations Name Administration Dates Next Due COVID-19 mRNA, LNP-s, No Pre serve, 2-Dose Series (Dayforce) 12/13/2020,05/30/2020,05/02/2020 COVID-19, LNP-s, No Preserve , Keith-sucrose, Ages 12+ (Pfizer) 07/04/2021 HEP A - Hepatitis A (Adult > 18 yrs) 03/20/2004 IPV - Polio Virus Vaccine (Inact) 03/20/2004 Meningococcal Polysaccharide Vaccine (Menommune) 03/20/2004 PPD 05/25/2003,05/10/2003,07/02/1995 Pneumococcal Conjugate Vacci ne, 20-valent ([id number]) 02/13/2022 Pneumococcal Polysaccharide PPV23 (Pneumovax) 02/05/2020,01/17/2005 Seasonal [...] encounter Miscellaneous Notes * Telephone Encounter - Rossana Beltran - 08/28/2022 8:01 AM EDT See my g * Telephone Encounter - Julianna Weight - 08/27/2022 2:41 PM EDT LM for patient to call back so we can find out where she would like to go for PT * Addendum Note - Brea Germain DO - 08/27/2022 12:34 PM EDTAddended by: BREA GERMAIN on: 08/27/2022 12:34 PM Modules accepted: Orders * Telephone Encounter - Brea Germain DO - 08/27/2022 12:33 PM EDT Noted. PT referral placed SARAH Perry * Telephone Encounter - Constance Wang LPN - 08/27/2022 10:58 AM EDT HH Mitch Velez RN Calling from: [facility] Patient is declining: [facility] PT Patients reasoning - pt has 2 large dogs and unable to kennel or keep them separate when staff would come to the home. Pt would be interested in out patient Physical therapy. Pt has appt with Dr Perry scheduled for 08/30I to PCP documented in this encounter Plan of Treatment Upcoming Encounters Date Type Specialty Care Team Description 08/30/2022 Office Visit Family Medicine Garret Perry MD [address] [place] [phone] 11/01/2022 Office Visit Family Medicine Luz Morales CRNP [address] [address] 11/21/2022 Imaging Radiology 11/27/2022 Office Visit Gastroenterology Yumiko Gonzalez CRNP [address] [address] 12/23/2022 Office Visit Cardiology Rodo Romero, DO [address] [place] [address] 06/17/2023 Office Visit Sleep Disorders Ariana Beltran, DO [address] [place] [address] Scheduled Procedures Name Priority Associated Diagnoses Date/Ti [...] Ratio 05/09/2022 05/09/2021, 06/02 HbA1c 06/03/2022 12/03/2021, 0506/2021, 02/06/2021, Additional history exists Depression Screening, Annual [...] 01/17/2005 LUNG CANCER SCREENING - USE SMARTSET 42907 Completed 07/19/2022, 07/06/2021, 04/11/2020, Additional history exists GARDASIL-HPV IMMUNIZATION SERIES Aged Out No longer eligible based on patient's age to complete this topic Hepatitis B Aged Out No longer eligi ble based on patient's age to complete this topic documented as of this encounter Medical Devices Implanted Type Area Environmental Planner Device Identifier Shelf Expiration Date Model / Serial / Lot Wire Mailman - [id number] Implanted:Qty: 1 on 06/24/2022 by Natalie Sheffield IV, MD at [facility] [place] [employer] : PERIPHL IV [id number] 12/13/2023 [id number] documented as of this encounter Visit Diagnoses [...] the patient have Health Care Power of Elastic Assembler? No Care Teams Management Accountant Relationship Specialty Start Date End Date Luz Morales CRNP [address] [place] [address] PCP - General Nurse Practitioner 09/27/20 documented as of this encounter
--- OUTSIDE RECORDS SUMMARY | 2023-01-23 19:39 | External Medical Summary | Summary of Care ---
Author Name Unknown Organization [facility] Address [address] [place] [address] Phone [phone] Care Team Providers Care Manager Market Development Name Role Phone Luz Morales Primary Care Provider Reason for Referral * Evaluate & Treat - Unlimited Visits (Within 10 days (routine)) - Authorized Specialty Diagnoses / Procedures Referred By Steven perkins Referred To Contact Physical Therapy / Physical Medicine And Rehab Diagnoses History of CVA (cerebrovascular accident) Brea Mercer DO [address] [place] [address] Referral ID Status Reason Start Date Expiration Date Visits Requested Visits Authorized [id number] Authorized Specialty Services Required 08/27/2022 999 999 Question Answer Referral Priority Within 10 days (routine) Reason for Visit * Reason Onset Date Comments Home Health 08/27/2022 Encounter Details Date Type Department Care Team Description 08/27/[address] [facility] [address] [place] [address] Luz Morales CRNP [address] [place] [address] Home Health Allergies Active Allergy Reactions Severity [...] mgIndications:Asthma with COPD (chronic obstructive pulmonary disease) ([facility]) 2.5 mg NEBULIZER PRN 05/16/2022 05/16/2023 Active Albuterol Sulfate (Proventil) (2.5 MG/3ML) 0.083% inhalation solution 2.5 mgIndications:Asthma with COPD (chronic obstructive pulmonary disease) ([facility]) 2.5 mg NEBULIZER PRN 05/16/2022 05/16/2023 Active [...] mRNA, LNP-s, No Pre serve, 2-Dose Series (I Had Cancer) 12/13/2020,05/30/2020,05/02/2020 COVID-19, LNP-s, No Preserve , Keith-sucrose, Ages 12+ (Pfizer) 07/04/2021 HEP A - Hepatitis A (Adult > 18 yrs) 03/20/2004 IPV - Polio Virus Vaccine (Inact) 03/20/2004 Meningococcal Polysaccharide Vaccine (Menommune) 03/20/2004 PPD 05/25/2003,05/10/2003,07/02/1995 Pneumococcal Conjugate Vacci ne, 20-valent ([id number]) 02/13/2022 Pneumococcal Polysaccharide PPV23 (Pneumovax) 02/05/2020,01/17/2005 Seasonal [...] as of this encounter Miscellaneous Notes * Addendum Note - Brea Mercer DO - 08/27/2022 12:34 PM EDTAddended by: BREA MERCER on: 08/27/2022 12:34 PM Modules accepted: Orders * Telephone Encounter - Brea Mercer DO - 08/27/2022 12:33 PM EDT Noted. PT referral placed SARAH Perry * Telephone Encounter - Constance Wang LPN - 08/27/2022 10:58 AM EDT HH Refused Rosie PINK Calling from: [facility] Patient is declining: [facility] HH PT Patients reasoning - pt [...] Perry MD [address] [place] [address] 11/01/2022 Office Visit Family Medicine Luz Morales CRNP [address] [place] [address] 11/21/2022 Imaging Radiology 11/27/2022 Office Visit Gastroenterology Yumiko Gonzalez CRNP [address] [place] [address] 12/23/2022 Office Visit Cardiology Rodo Romero DO [address] [place] [address] 06/17/2023 Office Visit Sleep Disorders Ariana Beltran DO [address] [place] [address] Scheduled Procedures Name Priority Associated Diagnoses Date/Ti [...] 01/17/2005 LUNG CANCER SCREENING - USE SMARTSET [id number] Completed 07/19/2022, 07/06/2021, 04/11/2020, Additional history exists GARDASIL-HPV IMMUNIZATION SERIES Aged Out No longer eligible based on patient's age to complete this topic Hepatitis B Aged Out No longer eligi ble based on patient's age to complete this topic documented as of this encounter Medical Devices Implanted Type Area Assembler Tubing Device Identifier Shelf Expiration Date Model / Serial / Lot Wire Mailman - [id number] Implanted:Qty: 1 on 06/24/2022 by Natalie Sheffield IV, MD at [facility] [employer] : PERIPHL IV [id number] 12/13/2023 [id number] documented as of this encounter Visit Diagnoses [...] the patient have Health Care Power of Supervisor Quilting? No Care Teams Manager Market Development Relationship Specialty Start Date End Date Luz Morales CRNP [address] [place] [address] PCP - General Nurse Practitioner 09/27/20 documented as of this encounter
--- OUTSIDE RECORDS SUMMARY | 2023-01-23 19:39 | External Medical Summary ---
Author Name Unknown Address Unknown Organization K09:[facility] [place] [address] Laboratory Report Ordering Provider Test Date Status SHANIA STEVENS 08/21/2022 05:40:00 Final Observation Date Value Abnormality Reference (Units ) Status BUN 08/21/2022 05:40:00 25 Above high normal 6-20 (mg/dL) Final Creatinine 08/21/2022 05:40:00 0.9 0.5-1.0 (mg/dL) Final Glomerular filtration rate/1.73 sq M.predicted [Volume Rate/Area] in Serum, Plasma or Blood by Creatinine-based formula (CKD-EPI) 08/21/2022 05:40:00 72 >=60 (mL/min) Final eGFR is calculated based on the CKD-EPI 2020 equation SODIUM 08/21/2022 05:40:00 138 135-146 (m mol/L) Final Potassium 08/21/2022 05:40:00 4.3 3.5-5.1 (m mol/L) Final Cl 08/21/2022 05:40:00 103 98-107 (mm ol/L) Final CO2 08/21/2022 05:40:00 23 22-32 (mmo l/L) Final Anion gap 08/21/2022 05:40:00 12 7-15 (mmol /L) Final Glucose 08/21/2022 05:40:00 170 Above high normal 70 -120 (mg/dL) Final Calcium 08/21/2022 05:40:00 9.2 8.4-10.2 ( mg/dL) Final Performing Location [facility] [place] [address]
--- OUTSIDE RECORDS SUMMARY | 2023-01-23 19:39 | External Medical Summary | Summary of Care ---
Author Name Unknown Organization [facility] Address [address] [place] [address] Phone [phone] Care Team Providers Care Net Manager Name Role Phone Luz Morales Primary Care Provider Encounter Details Date Type Department Care Team Description 08/21/2022 Telephone Family Practice [facility] [address] [place] [phone] Luz Morales CRNP [address] [place] [address] Allergies Active Allergy Reactions Severity Noted Date Comments Erythromycin Rash 12/14/1999 Ibuprofen Rash 08/05/2011 Latex Rash 03/20/2007 Sulfa Antibiotics Rash 12/14/1999 documented as of this encounter (statuses as of 08/23/2022) Medications Medication Sig Dispensed Refills Start Date [...] as of this encounter (statuses as of 08/23/2022) Active Problems Problem Noted Date Onychomycosis 08/01/2022 [...] as of this encounter (statuses as of 08/23/2022) Resolved Problems Problem Noted Date Resolved Date [...] as of this encounter (statuses as of 08/23/2022) Immunizations Name Administration Dates Next Due COVID-19 mRNA, LNP-s, No Pre serve, 2-Dose Series (Applika) 12/13/2020,05/30/2020,05/02/2020 COVID-19, LNP-s, No Preserve , Keith-sucrose, Ages 12+ (Applika) 07/04/2021 Pneumococcal Conjugate Vacci ne, 20-valent ([id number]) 02/13/2022 Pneumococcal Polysaccharide PPV23 (Pneumovax) 02/05/2020 Seasonal [...] * Telephone Encounter - Julianna Mcleod - 08/23/2022 4:26 PM EDT Letter sent * Telephone Encounter - Julianna Mcleod - 08/23/2022 10:21 AM EDT LM for patient to call back and schedule hospital discharge appt. * Telephone Encounter - Julianna Mcleod - 08/21/2022 3:11 PM EDT LM for patient to call back and schedule hospital discharge appt. * Telephone Encounter - DONNA Benavides - 08/21/2022 10:33 AM EDT Please schedule hospital follow up Also needs labs per discharge summary- will encompass complete these? documented in this encounter Plan of Treatment Upcoming Encounters Date Type Specialty Care Team Description 08/30/2022 Office Visit Family Medicine Garret Perry MD [address] [place] [address] 11/01/2022 Office Visit Family Medicine Luz Morales, DONNA [address] [place] [address] 11/21/2022 Imaging Radiology 11/27/2022 Office Visit Gastroenterology Yumiko Gonzalez, DONNA [address] [place] [address] 12/23/2022 Office Visit Cardiology Rodo Romero, DO [address] [place] [address] 06/17/2023 Office Visit Sleep Disorders Ariana Beltran, DO [address] [place] [address] Scheduled Procedures Name Priority Associated Diagnoses Date/Ti me COLONOSCOPY FLEXIBLE PROXIMA L DIAGNOSTIC Recall History of colonic polyps Health Maintenance Due Date Last Done Comments Alpha-1 Antitrypsin 1972 DIABETES-EYE EXAM 06/26/2016 06/27/2015, , 05/30/2015 Albumin/Creatinine Ratio 05/09/2022 05/09/2021, 06/02 HbA1c 06/03/2022 12/03/2021, 050 06/2021, 02/06/2021, Additional history exists Depression Screening, Annual for Pts 12 and Over 08/14/2022 08/14/2021 Mammogram 08/14/2022 08/14/2021, 060 11/2020, 06/10/2018, Additional history exists DIABETES-FOOT EXAM [...] 01/17/2005 LUNG CANCER SCREENING - USE SMARTSET 52684 Completed 07/19/2022, 07/06/2021, 04/11/2020, Additional history exists GARDASIL-HPV IMMUNIZATION SERIES Aged Out No longer eligible based on patient's age to complete this topic Hepatitis B Aged Out No longer eligi ble based on patient's age to complete this topic documented as of this encounter Medical Devices Implanted Type Area Color Coater Device Identifier Shelf Expiration Date Model / Serial / Lot Wire Mailman - [id number] Implanted:Qty: 1 on 06/24/2022 by Natalie Sheffield IV, MD at [facility] [employer] [place] [id number] 12/13/2023 [id number] documented as of this encounter Advance Directives [...] the patient have Health Care Power of Machine Bobbin Winder? No Care Teams Net Manager Relationship Specialty Start Date End Date Luz Morales CRNP [address] [place] [address] PCP - General Nurse Practitioner 09/27/20 documented as of this encounter
--- OUTSIDE RECORDS SUMMARY | 2023-01-23 19:39 | External Medical Summary | Summary of Care ---
Author Name Unknown Organization [facility] Address [address] [place] [address] Phone [phone] Care Team Providers Care Webbing Inspector Name Role Phone Luz Morales Christel THOMPSON Primary Care Provider Reason for Visit * Reason Onset Date Comments Scheduling 07/26/2022 8 week light sta tus with Lynnette or Sol RD f/u 4 weeks, behavioral med Encounter Details Date Type Department Care Team Description 07/26/2022 Telephone Nutrition & Weight Management, [facility] [address] [place] [address] Zina Donovan PA-C [address] [place] [address] Scheduling (8 week light status with Lynnette ... Allergies Active Allergy Reactions Severity Noted Date [...] may remove with alcohol and continue cycle. 6.6 mL 1 06/28/2020 3 Discontinu ed(Refill) Metoprolol Succinate ER 50 MG Oral Tablet Extended Release 24 Hour Two tablets in AM/one tablet in PM. 0 06/24/2022 3 Discontinu ed(Medicat ion/Dose Changed) Hospital, Clinic, or Other Facility Administered Medication [...] and < 8mm 11/02/2017 Persistent atrial fibrillation 06/13/201 8 MEDICATION USE AGREEMENT 03/28/2017 Dyslipidemia, goal [...] mRNA, LNP-s, No Pre serve, 2-Dose Series ([facility]) 12/13/2020,05/30/2020,05/02/2020 COVID-19, LNP-s, No Preserve , Keith-sucrose, Ages 12+ (Pfizer) 07/04/2021 HEP A - Hepatitis A (Adult > 18 yrs) 03/20/2004 IPV - Polio Virus Vaccine (Inact) 03/20/2004 Meningococcal Polysaccharide Vaccine ([facility]) 03/20/2004 PPD 05/25/2003,05/10/2003,07/02/1995 Pneumococcal Conjugate Vacci ne, 20-valent ([id number]) 02/13/2022 Pneumococcal Polysaccharide PPV23 (Pneumovax) 02/05/2020,01/17/2005 Seasonal [...] encounter Miscellaneous Notes * Telephone Encounter - LILI Graham - 08/23/2022 9:20 AM EDT LMOM for pt to call back to schedule * Telephone Encounter - LILI Graham - 08/05/2022 3:29 PM EDT Letter sent * Telephone Encounter - LILI Graham - 08/01/2022 11:04 AM EDT LMOM for pt to call back to schedule * Telephone Encounter - LILI Graham - 07/26/2022 8:42 AM EDT Patient needs to be scheduled for the following appts per the checkout notes after VV on 07/25 w/ Zina: 8 week light status with Lynnette or Zina, Schedule RD f/u 4 weeks, behavioral med LMOM for pt to call back to schedule documented in this encounter Plan of Treatment Upcoming Encounters Date Type Specialty Care Team Description 11/01/2022 Office Visit Family Medicine Luz Morales CRNP [address] [place] [address] 11/21/2022 Imaging Radiology 11/27/2022 Office Visit Gastroenterology Yumiko Gonzalez CRNP [address] [place] [address] 12/23/2022 Office Visit Cardiology Rodo Romero, [address] [place] [address] 06/17/2023 Office Visit Sleep Disorders Ariana Beltran, [address] [place] [address] Scheduled Procedures Name Priority Associated Diagnoses Date/Ti [...] 01/17/2005 LUNG CANCER SCREENING - USE SMARTSET 09324 Completed 07/19/2022, 07/06/2021, 04/11/2020, Additional history exists GARDASIL-HPV IMMUNIZATION SERIES Aged Out No longer eligible based on patient's age to complete this topic Hepatitis B Aged Out No longer eligi ble based on patient's age to complete this topic documented as of this encounter Medical Devices Implanted Type Area Bonded Structures Repairer Device Identifier Shelf Expiration Date Model / Serial / Lot Wire Mailman - [id number] Implanted:Qty: 1 on 06/24/2022 by Natalie Sheffield IV, MD at [facility] [place] Pax8 : PERIPHL IV [id number] 12/13/2023 [id number] documented as of this encounter Advance Directives [...] the patient have Health Care Power of Public Address Technician? No Care Teams Webbing Inspector Relationship Specialty Start Date End Date Luz Morales CRNP [address] [place] [address] PCP - General Nurse Practitioner 09/27/20 documented as of this encounter
--- OUTSIDE RECORDS SUMMARY | 2023-01-23 19:39 | External Medical Summary | Summary of Care ---
Author Name Unknown Organization [facility] Address [address] [place] [address] Phone [phone] Care Team Providers Care Rubber Moulding Machine Operator Name Role Phone Luz Morales Primary Care Provider Reason for Referral * Evaluate & Treat - Unlimited Visits (Within 10 days (routine)) - Authorized Specialty Diagnoses / Procedures Referred By Steven perkins Referred To Contact Physical Therapy / Physical Medicine And Rehab Diagnoses History of CVA (cerebrovascular accident) Brea Mercer DO [address] [place] [id number] Referral ID Status Reason Start Date Expiration Date Visits Requested Visits Authorized [id number] Authorized Specialty Services Required 08/27/2022 999 999 Question Answer Referral Priority Within 10 days (routine) Reason for Visit * Reason Onset Date Comments Home Health 08/27/2022 Encounter Details Date Type Department Care Team Description 08/27/[address] [facility] [address] [place] [address] Luz Morales CRNP [address] [place] [address] Home Health Allergies Active Allergy Reactions Severity [...] mgIndications:Asthma with COPD (chronic obstructive pulmonary disease) ([facility]) 2.5 mg NEBULIZER PRN 05/16/2022 05/16/2023 Active Albuterol Sulfate (Proventil) (2.5 MG/3ML) 0.083% inhalation solution 2.5 mgIndications:Asthma with COPD (chronic obstructive pulmonary disease) ([facility]) 2.5 mg NEBULIZER PRN 05/16/2022 [...] mRNA, LNP-s, No Pre serve, 2-Dose Series ([facility]) 12/13/2020,05/30/2020,05/02/2020 COVID-19, LNP-s, No Preserve , Keith-sucrose, Ages 12+ (Pfizer) 07/04/2021 HEP A - Hepatitis A (Adult > 18 yrs) 03/20/2004 IPV - Polio Virus Vaccine (Inact) 03/20/2004 Meningococcal Polysaccharide Vaccine ([facility]) 03/20/2004 PPD 05/25/2003,05/10/2003,07/02/1995 Pneumococcal Conjugate Vacci ne, 20-valent ([id number]) 02/13/2022 Pneumococcal Polysaccharide PPV23 (Pneumovax) 02/05/2020,01/17/2005 Seasonal [...] EDT HH Refused Rosie PINK Calling from: [facility] Patient is declining: Senior Care and HH [...] Perry MD [address] [place] [address] 11/01/2022 Office Visit Family Medicine Luz Morales CRNP [address] [place] [address] 11/21/2022 Imaging Radiology 11/27/2022 Office Visit Gastroenterology Yumiko Gonzalez CRNP [address] [place] [address] 12/23/2022 Office Visit Cardiology Rodo Romero DO [address] [place] [address] 06/17/2023 Office Visit Sleep Disorders Ariana Beltran DO [address] [place] [address] Scheduled Procedures Name Priority Associated Diagnoses Date/Ti [...] 01/17/2005 LUNG CANCER SCREENING - USE SMARTSET 14171 Completed 07/19/2022, 07/06/2021, 04/11/2020, Additional history exists GARDASIL-HPV IMMUNIZATION SERIES Aged Out No longer eligible based on patient's age to complete this topic Hepatitis B Aged Out No longer eligi ble based on patient's age to complete this topic documented as of this encounter Medical Devices Implanted Type Area Regulatory Law Specialist Device Identifier Shelf Expiration Date Model / Serial / Lot Wire Mailman - [id number] Implanted:Qty: 1 on 06/24/2022 by Natalie Sheffield IV, MD at [facility] [employer] : PERIPHL IV [id number] 12/13/2023 [id number] documented as of this encounter Visit Diagnoses [...] the patient have Health Care Power of Baker Doughnut? No Care Teams Rubber Moulding Machine Operator Relationship Specialty Start Date End Date Luz Morales CRNP [address] [place] [address] PCP - General Nurse Practitioner 09/27/20 documented as of this encounter
--- OUTSIDE RECORDS SUMMARY | 2023-01-23 19:39 | External Medical Summary | Summary of Care ---
Author Name Unknown Organization [facility] Address [address] [place] [address] Phone [phone] Care Team Providers Care Outpatient Phlebotomist Name Role Phone Luz Morales Primary Care Provider Reason for Referral * Evaluate & Treat - Unlimited Visits (Within 10 days (routine)) - Authorized Specialty Diagnoses / Procedures Referred By Steven perkins Referred To Contact Physical Therapy / Physical Medicine And Rehab Diagnoses History of CVA (cerebrovascular accident) Brea Germain DO [address] [place] [address] Referral ID Status Reason Start Date Expiration Date Visits Requested Visits Authorized [id number] Authorized Specialty Services Required 08/27/2022 999 999 Question Answer Referral Priority Within 10 days (routine) Reason for Visit * Reason Onset Date Comments Home Health 08/27/2022 Encounter Details Date Type Department Care Team Description 08/27/2022 Telephone Family Practice [facility] [address] [place] [address] Luz Morales CRNP [address] [employer] [address] [place] [address] Home Health Allergies Active Allergy Reactions Severity [...] COPD (chronic obstructive pulmonary disease) ([facility]) 2.5 mg NEBULIZER PRN 05/16/2022 05/16/2023 Active Albuterol Sulfate (Proventil) (2.5 MG/3ML) 0.083% inhalation solution 2.5 mgIndications:Asthma with COPD (chronic obstructive pulmonary disease) ([facility]) 2.5 mg NEBULIZER PRN 05/16/2022 [...] mRNA, LNP-s, No Pre serve, 2-Dose Series ([facility]) 12/13/2020,05/30/2020,05/02/2020 COVID-19, LNP-s, No Preserve , Keith-sucrose, Ages 12+ (Pfizer) 07/04/2021 HEP A - Hepatitis A (Adult > 18 yrs) 03/20/2004 IPV - Polio Virus Vaccine (Inact) 03/20/2004 Meningococcal Polysaccharide Vaccine ([facility]) 03/20/2004 PPD 05/25/2003,05/10/2003,07/02/1995 Pneumococcal Conjugate Vacci ne, 20-valent ([id number]) 02/13/2022 Pneumococcal Polysaccharide PPV23 (Pneumovax) 02/05/2020,01/17/2005 Seasonal [...] EDT HH Mitch Velez RN Calling from: [facility] Patient is declining: Intermediate and HH PT Patients reasoning - pt [...] Garret Perry MD [address] [place] [address] 11/01/2022 Office Visit Family Medicine Luz Morales CRNP [address] [place] [address] 11/21/2022 Imaging Radiology 11/27/2022 Office Visit Gastroenterology Yumiko Gonzalez CRNP [address] [place] [address] 12/23/2022 Office Visit Cardiology Rodo Romero, DO [address] [place] [address] 06/17/2023 Office Visit Sleep Disorders Ariana Betlran, DO [address] [place] [address] Scheduled Procedures Name Priority Associated Diagnoses Date/Ti [...] 01/17/2005 LUNG CANCER SCREENING - USE SMARTSET 14203 Completed 07/19/2022, 07/06/2021, 04/11/2020, Additional history exists GARDASIL-HPV IMMUNIZATION SERIES Aged Out No longer eligible based on patient's age to complete this topic Hepatitis B Aged Out No longer eligi ble based on patient's age to complete this topic documented as of this encounter Medical Devices Implanted Type Area Buttonhole Marker Device Identifier Shelf Expiration Date Model / Serial / Lot Wire Mailman - [id number] Implanted:Qty: 1 on 06/24/2022 by Natalie Sheffield IV, MD at [facility] [place] [employer] : PERIPHL IV [id number] 12/13/2023 [id number] documented as of this encounter Visit Diagnoses [...] the patient have Health Care Power of Registered Diet Technician? No Care Teams Outpatient Phlebotomist Relationship Specialty Start Date End Date Luz Morales CRNP [address] [place] [address] PCP - General Nurse Practitioner 09/27/20 documented as of this encounter
--- OUTSIDE RECORDS SUMMARY | 2023-01-23 19:39 | External Medical Summary | Summary of Care ---
Author Name Unknown Organization [facility] Address [address] [place] [address] Phone [phone] Care Team Providers Care Potable Water Treatment Operator Name Role Phone Luz Morales Christel THOMPSON Primary Care Provider Reason for Visit * Reason Onset Date Comments Medication Refill 08/27/2022 Encounter Details Date Type Department Care Team Description 08/27/2022 Refill Nutrition & Weight Management, [facility] [address] [place] [address] Zina Donovan PA-C [address] [place] [address] Type 2 diabetes mellitus without complication, without long-term current use of insulin ([facility]) Allergies Active Allergy Reactions Severity Noted Date [...] a week. 6 mL 1 08/27/2022 Active Trulicity 4.5 MG/0.5ML Subcutaneous Solution Pen-injector [...] (Pfizer) 07/04/2021 Pneumococcal Conjugate Vacci ne, 20-valent ([id number]) 02/13/2022 Pneumococcal Polysaccharide PPV23 (Pneumovax) 02/05/2020 Seasonal [...] encounter Miscellaneous Notes * Telephone Encounter - Zina Donovan PA-C - 08/27/2022 3:12 PM EDT Signed Prescriptions: Disp Refills Trulicity 4.5 MG/0.5ML Subcutaneous Soluti*6 mL 1 Sig: Inject 4.5 mg under the skin once a week. Authorizing Provider: ZINA DONOVAN * Telephone Encounter - Ana Rosa Alvarez LPN - 08/27/2022 2:25 PM EDTPending Prescriptions: Disp Refills Trulicity 4.5 MG/0.5ML Subcutaneous Soluti*6 mL 1 Sig: Inject 4.5 mg under the skin once a week. * Telephone Encounter - Ana Rosa Alvarez LPN - 08/27/2022 2:24 PM EDT Did you pend patient's preferred pharmacy and medication before forwarding?yes Pharmacy: [facility]- [place] Pending Prescriptions: Disp Refills Trulicity 4.5 MG/0.5ML Subcutaneous Solut*6 mL 1 Sig: Inject 4.5 mg under the skin once a week. Last Visit: 03/18/2022 (in office), 07/25/2022 (telemedicine) Next Visit: Visit date not found If no future appointments scheduled, and last appointment is greater than a year ago, please schedule patient for a follow-up appointment Last date the medication was ordered: 07/25/22 Is this request for a controlled substance?No [...] found in Results Review. Patient Phone Numbers Labs: Lab Results Component Value Date/Time CREAT 0.9 08/21/2022 05:40 AM CREAT 0.8 03/10/2018 07:30 AM POTASSIUM 4.3 08/21/2022 05:40 AM POTASSIUM 4.2 06/24/2022 02:06 PM POTASSIUM 4.0 03/10/2018 09:59 AM POTASSIUM 4.8 03/10/2018 07:30 AM TSH 0.65 12/03/2021 10:26 AM TSH 1.09 02/23/2019 12:11 PM LDLCALC 61 12/03/2021 10:26 AM LDLCALC 95 09/20/2016 11:16 AM LDLDIRECT NOT APPLICABLE 09/20/2016 11:16 AM ALT 11 03/05/2022 02:37 PM ALT 6 (L) 08/13/2017 11:16 AM HGBA1C 6.6 (H) 12/03/2021 10:26 AM HGBA1C 5.8 10/01/2016 11:26 AM documented in this encounter Plan of Treatment Upcoming Encounters Date Type Specialty Care Team Description 08/30/2022 Office Visit Family Medicine Garret Perry MD [address] [place] [address] 11/01/2022 Office Visit Family Medicine Luz Morales CRNP [address] [address] 11/21/2022 Imaging Radiology 11/27/2022 Office Visit Gastroenterology Yumiko Gonzalez CRNP [address] [place] [address] 12/23/2022 Office Visit Cardiology Rodo Romero, [address] [place] [address] 06/17/2023 Office Visit Sleep Disorders Ariana Beltran, DO [address] [place] [address] Scheduled Procedures Name Priority Associated Diagnoses Date/Ti [...] 01/17/2005 LUNG CANCER SCREENING - USE SMARTSET 73622 Completed 07/19/2022, 07/06/2021, 04/11/2020, Additional history exists GARDASIL-HPV IMMUNIZATION SERIES Aged Out No longer eligible based on patient's age to complete this topic Hepatitis B Aged Out No longer eligi ble based on patient's age to complete this topic documented as of this encounter Medical Devices Implanted Type Area Rn Lpn Lvn Device Identifier Shelf Expiration Date Model / Serial / Lot Wire Mailman - [id number] Implanted:Qty: 1 on 06/24/2022 by Natalie Sheffield IV, MD at [facility] [place] [employer] : PERIPHL IV [id number] 12/13/2023 [id number] documented as of this encounter Visit Diagnoses [...] the patient have Health Care Power of Yard Supervisor Cotton Gin? No Care Teams Potable Water Treatment Operator Relationship Specialty Start Date End Date Luz Morales CRNP [address] [facility] [place] [address] PCP - General Nurse Practitioner 09/27/20 documented as of this encounter
--- OUTSIDE RECORDS SUMMARY | 2023-01-23 19:39 | External Medical Summary | Summary of Care ---
Author Name Unknown Organization [facility] Address [address] [place] [address] Phone [phone] Care Team Providers Care Senior Merchandiser Name Role Phone Luz Morales Christel THOMPSON Primary Care Provider Reason for Visit * Reason Onset Date Comments Information 08/15/2022 Encounter Details Date Type Department Care Team Description 08/15/2022 Telephone Cardiology, [facility] [address] [place] [address] Rodo Romero, [address] [place] [address] Information Allergies Active Allergy Reactions Severity Noted Date Comments Erythromycin Rash 12/14/1999 Ibuprofen Rash 08/05/2011 Latex Rash 03/20/2007 Sulfa Antibiotics Rash 12/14/1999 documented as of this encounter (statuses as of 08/15/2022) Medications Medication Sig Dispensed Refills Start Date [...] as of this encounter (statuses as of 08/15/2022) Active Problems Problem Noted Date Onychomycosis 08/01/2022 [...] as of this encounter (statuses as of 08/15/2022) Resolved Problems Problem Noted Date Resolved Date [...] as of this encounter (statuses as of 08/15/2022) Immunizations Name Administration Dates Next Due COVID-19 mRNA, LNP-s, No Pre serve, 2-Dose Series ([facility]) 12/13/2020,05/30/2020,05/02/2020 COVID-19, LNP-s, No Preserve , Keith-sucrose, Ages 12+ (Pfizer) 07/04/2021 Pneumococcal Conjugate Vacci ne, 20-valent ([id number]) 02/13/2022 Pneumococcal Polysaccharide PPV23 (Pneumovax) 02/05/2020 Seasonal [...] encounter Miscellaneous Notes * Telephone Encounter - Rodo Romero DO - 08/15/2022 4:55 PM EDT Patient arrived to [place] ED. SR in the 70s noted. BP stable. CT brain negative. Await MRI. Pt being admitted to the hospitalist service for further evaluation. Rodo Romero DO * Telephone Encounter - Rosie Alcocer LPN - 08/15/2022 11:23 AM EDT Pt sister calling w/pt present, sister wants pt to go to ED. Pt fell this am on concrete floor, pt does not believe she hit her head, but sister reports she found her with head on floor partially under bed. Pt is on eliquis. Sister wants to take her ED, pt agreed to go while on phone. Pt also reported strange feeling in her extremities prior to fall. documented in this encounter Plan of Treatment Upcoming Encounters Date Type Specialty Care Team Description 08/20/2022 Office Visit Cardiology Rodo Romero DO [address] [place] [address] 11/01/2022 Office Visit Family Medicine Luz Morales CRNP [address] [place] [address] 11/21/2022 Imaging Radiology 11/27/2022 Office Visit Gastroenterology Yumiko Gonzalez CRNP [address] [place] [address] 12/23/2022 Office Visit Cardiology Rodo Romero, [address] [place] [address] 06/17/2023 Office Visit Sleep Disorders Ariana Beltran, [address] [place] [address] Scheduled Procedures Name Priority Associated Diagnoses Date/Ti [...] history exists DIABETES-FOOT EXAM 02/13/2023 02/13/2022, 05/09/2021 GFR 06/25/2023 06/24/2022, 05/2022, 12/03/2021, Additional history exists O2 ASSESSMENT COMPLETED IN PAST YEAR FOR COPD 06/25/2023 06/24/2022 DXA Scan 08/28/2023 08/27/2016 COLONOSCOPY-EVERY 5 YRS [...] 01/17/2005 LUNG CANCER SCREENING - USE SMARTSET 14327 Completed 07/19/2022, 07/06/2021, 04/11/2020, Additional history exists GARDASIL-HPV IMMUNIZATION SERIES Aged Out No longer eligible based on patient's age to complete this topic Hepatitis B Aged Out No longer eligi ble based on patient's age to complete this topic documented as of this encounter Medical Devices Implanted Type Area Deadener Device Identifier Shelf Expiration Date Model / Serial / Lot Wire Mailman - [id number] Implanted:Qty: 1 on 06/24/2022 by Natalie Sheffield IV, MD at [facility] [employer] : PERIPHL IV [id number] 12/13/2023 [id number] documented as of this encounter Advance Directives [...] the patient have Health Care Power of Tone Regulator? No Care Teams Senior Merchandiser Relationship Specialty Start Date End Date Luz Morales CRNP [address] [place] [address] PCP - General Nurse Practitioner 09/27/20 documented as of this encounter
--- OUTSIDE RECORDS SUMMARY | 2023-01-23 19:39 | External Medical Summary ---
Author Name Unknown Address Unknown Organization K09:[facility] [place] [address] [address] [place] [address] Laboratory Report Ordering Provider Test Date Status SHANIA STEVENS 08/21/2022 05:40:00 Final Observation Date Value Abnormality Reference (Units ) Status WBC, Total 08/21/2022 05:40:00 8.97 4.00-10.8 0 (K/uL) Final RBC 08/21/2022 05:40:00 3.87 3.85-5.15 (M/uL) Final Hemoglobin 08/21/2022 05:40:00 12.4 12.0-15.3 (g/dL) Final HCT 08/21/2022 05:40:00 37.9 36.0-45.2 (%) Final MCV 08/21/2022 05:40:00 97.9 81.5-97.5 (fL) Final MCH 08/21/2022 05:40:00 32.0 27.0-34.0 (pg) Final MCHC 08/21/2022 05:40:00 32.7 32.0-36.0 (g/dL) Final RDW 08/21/2022 05:40:00 13.7 11.5-15.5 (%) Final Platelets 08/21/2022 05:40:00 217 140-400 (K /uL) Final MPV 08/21/2022 05:40:00 10.1 6.6-11.1 ( fL) Final Performing Location [facility] [place] [address]
--- OUTSIDE RECORDS SUMMARY | 2023-01-23 19:39 | External Medical Summary | Summary of Care ---
Author Name Unknown Organization [facility] Address [address] [place] [address] Phone [phone] Care Team Providers Care Jewelry Enameler Name Role Phone Luz Morales DONNA Primary Care Provider Reason for Visit * Reason Onset Date Comments case management 08/23/2022 Encounter Details Date Type Department Care Team Description 08/23/2022 Blind Hooker Telephone Care Coordination [address] [place], [place] [id number] Leslie Beltran RN [address] [place] [phone] case management (//) Allergies Active Allergy Reactions Severity Noted Date [...] 07/01/2022 Active Apixaban 5 MG Oral Tablet (Eliquis)Davidtio ns:Persistent atrial fibrillation (HCC) Take 1 Tablet [...] mRNA, LNP-s, No Pre serve, 2-Dose Series ([employer] 12/13/2020,05/30/2020,05/02/2020 COVID-19, LNP-s, No Preserve , Keith-sucrose, Ages 12+ (Pfizer) 07/04/2021 Pneumococcal Conjugate Vacci ne, 20-valent ([id number]) 02/13/2022 Pneumococcal Polysaccharide PPV23 (Pneumovax) 02/05/2020 Seasonal [...] encounter Miscellaneous Notes * Telephone Encounter - Leslie Beltran RN - 08/23/2022 3:04 PM EDT Week 1 [facility] 08/16-08/20/2022 cerebral infarct d'c IP Rehb Outbound call to [facility] at patient information [facility] and confirmed patient remains admitted documented in this encounter Plan of Treatment Upcoming Encounters Date Type Specialty Care Team Description 11/01/2022 Office Visit Family Medicine Luz Morales CRNP [address] [place] [address] 11/21/2022 Imaging Radiology 11/27/2022 Office Visit Gastroenterology Yumiko Gonzalez CRNP [address] [place] [address] 12/23/2022 Office Visit Cardiology Rood Romero, [address] [place] [address] 06/17/2023 Office Visit Sleep Disorders Ariana Beltran, [address] [place] [address] Scheduled Procedures Name Priority Associated Diagnoses Date/Ti [...] 01/17/2005 LUNG CANCER SCREENING - USE SMARTSET [address]6073 Completed 07/19/2022, 07/06/2021, 04/11/2020, Additional history exists GARDASIL-HPV IMMUNIZATION SERIES Aged Out No longer eligible based on patient's age to complete this topic Hepatitis B Aged Out No longer eligi ble based on patient's age to complete this topic documented as of this encounter Medical Devices Implanted Type Area Swager Operator Device Identifier Shelf Expiration Date Model / Serial / Lot Wire Mailman - [id number] Implanted:Qty: 1 on 06/24/2022 by Natalie Sheffield IV, MD at [facility] [place] [employer] : PERIPHL IV [id number] 12/13/2023 [id number] documented as of this encounter Advance Directives [...] the patient have Health Care Power of Manufacturers Representative? No Care Teams Jewelry Enameler Relationship Specialty Start Date End Date Luz Morales CRNP [address] [place] [address] PCP - General Nurse Practitioner 09/27/20 documented as of this encounter
--- OUTSIDE RECORDS SUMMARY | 2023-01-23 19:39 | External Medical Summary | Summary of Care ---
Author Name Unknown Organization [facility] Address [address] [place] [address] Phone [phone] Care Team Providers Care Assistant Cook Name Role Phone Luz Morales Primary Care Provider Reason for Referral * Evaluate & Treat - Unlimited Visits (Within 10 days (routine)) - Authorized Specialty Diagnoses / Procedures Referred By Steven perkins Referred To Contact Physical Therapy / Physical Medicine And Rehab Diagnoses History of CVA (cerebrovascular accident) Brea Mercer DO [address] [place] [id number] Referral ID Status Reason Start Date Expiration Date Visits Requested Visits Authorized [id number] Authorized Specialty Services Required 08/27/2022 999 999 Question Answer Referral Priority Within 10 days (routine) Reason for Visit * Reason Onset Date Comments Home Health 08/27/2022 Encounter Details Date Type Department Care Team Description 08/27/2022 Telephone Family Practice [facility] [address] [place] [address] Luz Morales CRNP [address] [place] [address] Home Health Allergies Active Allergy Reactions Severity [...] mgIndications:Asthma with COPD (chronic obstructive pulmonary disease) ([facility]) 2.5 mg NEBULIZER PRN 05/16/2022 05/16/2023 Active Albuterol Sulfate (Proventil) (2.5 MG/3ML) 0.083% inhalation solution 2.5 mgIndications:Asthma with COPD (chronic obstructive pulmonary disease) ([facility]) 2.5 mg NEBULIZER PRN 05/16/2022 05/16/2023 Active [...] mRNA, LNP-s, No Pre serve, 2-Dose Series (cooala - your brands) 12/13/2020,05/30/2020,05/02/2020 COVID-19, LNP-s, No Preserve , Keith-sucrose, Ages 12+ (Pfizer) 07/04/2021 HEP A - Hepatitis A (Adult > 18 yrs) 03/20/2004 IPV - Polio Virus Vaccine (Inact) 03/20/2004 Meningococcal Polysaccharide Vaccine (Menommune) 03/20/2004 PPD 05/25/2003,05/10/2003,07/02/1995 Pneumococcal Conjugate Vacci ne, 20-valent ([id number]) 02/13/2022 Pneumococcal Polysaccharide PPV23 (Pneumovax) 02/05/2020,01/17/2005 Seasonal [...] EDT HH Refused Rosie PINK Calling from: [facility] Patient is declining: Detention and HH PT Patients reasoning - pt [...] Perry MD [address] [place] [address] 11/01/2022 Office Visit Family Medicine Luz Morales CRNP [address] [place] [address] 11/21/2022 Imaging Radiology 11/27/2022 Office Visit Gastroenterology Yumiko Gonzalez CRNP [address] [place] [address] 12/23/2022 Office Visit Cardiology Rodo Romero DO [address] [place] [address] 06/17/2023 Office Visit Sleep Disorders Ariana Beltran DO [address] [place] [address] Scheduled Procedures Name Priority Associated Diagnoses Date/Ti [...] 01/17/2005 LUNG CANCER SCREENING - USE SMARTSET [id number] Completed 07/19/2022, 07/06/2021, 04/11/2020, Additional history exists GARDASIL-HPV IMMUNIZATION SERIES Aged Out No longer eligible based on patient's age to complete this topic Hepatitis B Aged Out No longer eligi ble based on patient's age to complete this topic documented as of this encounter Medical Devices Implanted Type Area Neurosurgery Physician Device Identifier Shelf Expiration Date Model / Serial / Lot Wire Mailman - [id number] Implanted:Qty: 1 on 06/24/2022 by Natalie Sheffield IV, MD at [facility] [employer] : PERIPHL IV [id number] 12/13/2023 [id number] documented as of this encounter Visit Diagnoses [...] the patient have Health Care Power of Fire Safety Director? No Care Teams Assistant Cook Relationship Specialty Start Date End Date Luz Morales CRNP [address] [place] [address] PCP - General Nurse Practitioner 09/27/20 documented as of this encounter
--- OUTSIDE RECORDS SUMMARY | 2023-01-23 19:40 | External Medical Summary | Summary of Care ---
Author Name Unknown Organization [facility] Address [address] [place] [address] Phone [phone] Care Team Providers Care Heel Sorter Name Role Phone Luz Morales Primary Care Provider Reason for Visit * Reason Comments Hospital Follow-Up PT CAN TELL SHE IS B ACK IN AFIB Encounter Details Date Type Department Care Team Description 08/01/2022 Office Visit Family Practice [facility] [address] [place] [address] Luz Morales CRNP [address] [facility] [address] Persistent atrial fibrillation (HCC)*; Onychomycosis; AN (generalized anxiety disorder) Allergies Active Allergy Reactions Severity Noted Date Comments Erythromycin Rash 12/14/1999 Ibuprofen Rash 08/05/2011 Latex Rash 03/20/2007 Sulfa Antibiotics Rash 12/14/1999 documented as of this encounter (statuses as of 08/01/2022) Medications Medication Sig Dispensed Refills Start Date [...] continue cycle. 18 mL 1 08/01/2022 Active Ciclopirox 8 % External Solution Apply [...] as of this encounter (statuses as of 08/01/2022) Active Problems Problem Noted Date Onychomycosis 08/01/2022 [...] as of this encounter (statuses as of 08/01/2022) Resolved Problems Problem Noted Date Resolved Date [...] as of this encounter (statuses as of 08/01/2022) Immunizations Name Administration Dates Next Due COVID-19 mRNA, LNP-s, No Pre serve, 2-Dose Series (Pfizer) 12/13/2020,05/30/2020,05/02/2020 COVID-19, LNP-s, No Preserve , Keith-sucrose, Ages 12+ (Pfizer) 07/04/2021 Pneumococcal Conjugate Vacci ne, 20-valent ([id number]) 02/13/2022 Pneumococcal Polysaccharide PPV23 (Pneumovax) 02/05/2020 Seasonal [...] Sign Reading Time Taken Comments Blood Pressure 120/70 08/01/2022 2:45 PM EDT Pulse 120 08/01/2022 2:45 PM EDT IRREG ULAR Temperature - - Respiratory Rate - - Oxygen Saturation - - Inhaled Oxygen Concentration - - Weight 111.3 kg (245 lb 6 oz) 08/01/2022 2:45 PM EDT Height - - Body Mass Index 39.91 07/24/2022 8:30 AM EDT documented in this [...] of this encounter Progress Notes * DONNA Benavides - 08/01/2022 2:59 PM EDT Follow up Family Medicine Visit CC: Chief Complaint Patient presents with Hospital Follow-Up PT CAN TELL SHE IS BACK IN AFIB History of Present Illness: Kimberly Hernandez is a 67 year old female presenting for ER follow up. Seen in ED for a fib with RVR. She was cardioverted in the ED. Discharged home. She converted to NSR for approx 48 the back to afib. Today she notes mild fatigue. Denies sob, leg swelling or weight gain. She was given metoprolol in ED Chest x ray clear. EKG today a fib with RVR at 110. 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 Social Determinants of Health Financial Resource Strain: [...] 03/06/2000 COPD (chronic obstructive pulmonary disease) (HCC) DEPRESSIVE DISORDER NEC Hyperthyroidism 1977 MEDICATION USE AGREEMENT 03/28/2017 OSTEOARTHROS NOS-HAND 03/30/2007 Sleep apnea, obstructive Past Surgical History: Procedure Laterality Date APPENDECTOMY W/OTHER PROCEDURE age 29 BREAST BIOPSY Right 04/29/2002 Benign COLONOSCOPY, DIAGNOSTIC (RECTUM) 03/20/07 repeat in 10 years COLONOSCOPY, DIAGNOSTIC (RECTUM) 03/30/2019 diverticulosis sigmoid colon/biopsies show adenomatous polyps/recall 5 years/COLONOSCOPY FLEXIBLE PROXIMAL DIAGNOSTIC performed by Nancy Moreno DO at ENDOSCOPY [facility] ELECTROPHYSIOLOGY EVAL, ATRIAL FIB, PULMONARY VEIN ISOL Bilateral 03/10/2018 ELECTROPHYSIOLOGY EVAL, ATRIAL FIB, PULMONARY VEIN ISOL performed by David Bains MD at [facility] ELECTROPHYSIOLOGY EVAL, ATRIAL FIB, PULMONARY VEIN ISOL Bilateral 06/24/2022 PVI RADIOFREQUENCY CATHETER ABLATION performed by Natalie Sheffield IV, MD at [facility] LAP,ABDOMEN W/ASPIRATE age 29 ovarian cyst Outpatient Medications Marked as Taking for the 08/01/22 encounter (Office Visit) with DONNA Benavides Medication Sig Trulicity 4.5 MG/0.5ML Subcutaneous Solution Pen-injector (Dulaglutide) Inject 4.5 mg under theskin once a week. Apixaban 5 MG Oral Tablet (Eliquis) Take 1 Tablet by mouth in the morning and 1 Tablet before bedtime. Losartan Potassium 50 MG Oral Tablet (Cozaar) TAKE ONE TABLET BY MOUTH EVERY MORNING (Patient taking differently: No sig reported) Trelegy Ellipta 200-62.5-25 MCG/ACT Aerosol Powder Breath Activated (Kqwupgtwygc-Gznmpcujxtkh-Hebwwrrljt) Inhale 1 Puff by mouth in the morning. Metoprolol Succinate ER 50 MG Oral Tablet Extended Release 24 Hour Two tablets in AM/one tabletin PM. Omeprazole 20 MG Oral Capsule Delayed Release (PriLOSEC) Take 1 Capsule by mouth 2 times a day 30 minutes before morning and evening meals. (Patient taking differently: Take 1 Capsule by mouth 2 times a day 30 minutes before morning and evening meals.) Montelukast Sodium 10 MG Oral Tablet (Singulair) Take 1 Tablet by mouth in the morning. (Patient taking differently: Take 1 Tablet by mouth in the morning.) metFORMIN HCl 500 MG Oral Tablet (Glucophage) Take 1 Tablet by mouth 2 times a day with morningand evening meals. (Patient taking differently: Take 1 Tablet by mouth 2 times a day with morning and evening meals.) Atorvastatin Calcium 40 MG Oral Tablet (Lipitor) Take 1 Tablet by mouth in the morning. Mepolizumab 100 MG/ML Subcutaneous Solution Auto-injector INJECT 1 ML UNDER THE SKIN EVERY 4 WEEKS (Patient taking differently: No sig reported) buPROPion HCl ER (XL) 300 MG Oral Tablet Extended Release 24 Hour (Wellbutrin XL) Take 1 Tabletby mouth in the morning. Albuterol Sulfate HFA 108 (90 Base) MCG/ACT Inhalation Aerosol Solution Inhale by mouth 2 Puffsevery 4 hours as needed for Shortness of Breath or Wheezing. Mupirocin 2 % External Ointment (Bactroban) Apply to the nose twice daily Diclofenac Sodium 1 % External Gel (Voltaren) Apply topically to affected area daily. Apply to HANDS DAILY CPAP every night at bedtime. Auto pap 5-20 cm at bedtime Calcium Carbonate 600 MG Oral Tablet Take 1 Tablet by mouth in the morning. Ciclopirox 8 % External Solution Apply over nail and surrounding skin. Apply daily over previous coat. After seven (7) days, may remove with alcohol and continue cycle. levalbuterol (XOPENEX) 1.25 MG/3ML nebulizer solution Inhale 3 mL via nebulizer every 8 hours as needed for Wheezing. Nebulizers (NEBULIZER COMPRESSOR) MISC Inhale via nebulizer. With tubing please. Use as directed. Lifetime need. EPINEPHrine, anaphylaxis, (EPI-PEN) 0.3 MG/0.3ML SOAJ injection For a severe reaction: Inject in outer thigh following instructions on package and go to the Emergency room. acetaminophen (TYLENOL) 325 MG Tablet Take 2 Tabs by mouth every 6 hours as needed for Pain. cetirizine (ZYRTEC) 10 MG Tablet Take 1 Tab by mouth daily. (Patient taking differently: Take 1Tablet by mouth in the morning.) Vitamin D, Cholecalciferol, 400 UNITS CAPS Take by mouth. FISH OIL 500 MG PO CAPS one tab by mouth daily MULTIVITAMINS PO TABS one tab by mouth daily VITAMIN C 500 MG PO TABS one tab by mouth twice daily Current Facility-Administered Medications for the 08/01/22 encounter (Office Visit) with DONNA Benavides Medication Albuterol Sulfate (Proventil) (2.5 MG/3ML) 0.083% inhalation solution 2.5 mg Albuterol Sulfate (Proventil) (5 MG/ML) 0.5% *conc* inhalation solution 2.5 mg Review of patient's allergies indicates: Allergen Reactions Erythromycin Rash Ibuprofen Rash Latex Rash Sulfa Antibiotics Rash Most Recent Immunizations Administered Date(s) Administered COVID-19 mRNA, LNP-s, No Preserve, 2-Dose Series (Qlusters) 12/13/2020 COVID-19, LNP-s, No Preserve, Keith-sucrose, Ages 12+ (Qlusters) 07/04/2021 HEP A - Hepatitis A (Adult > 18 yrs) 03/20/2004 IPV - Polio Virus Vaccine (Inact) 03/20/2004 Meningococcal Polysaccharide Vaccine (Menommune) 03/20/2004 Methylprednisolone 04/28/2008 PPD 05/25/2003 Pneumococcal Conjugate Vaccine, 20-valent ([id number]) 02/13/2022 Pneumococcal Polysaccharide PPV23 (Pneumovax) 02/05/2020 Seasonal Influenza Virus Vaccine, Unspecified Formulation 01/01/2018 Seasonal Influenza, Quadrivalent Hd (Fluzone Hd) 01/12/2021 Seasonal Influenza, Quadrivalent, No Preserve, 6 Mons & Above, IM 12/21/2018 Seasonal Influenza, Quadrivalent, No Preserve, Adjuvanted, 65+ Yrs, IM 12/20/2019 Seasonal Influenza, Quadrivalent, No Preserve, IM 01/03/2016 Seasonal Influenza, Quadrivalent, No Preserve, Mdck 12/17/2017 Seasonal Influenza, Split, IIV3, With Preserve, Inj 01/26/2014 TD - Tetanus/Diptheria (ADULT) 08/01/2009 TDAP (age 10 and older)(Boostrix) 06/06/2015 Typhoid Oral 03/20/2004 Zoster Vaccine Recombinant (Shingrix) 08/27/2019 Review of Systems: Review of Systems Constitutional: Positive for fatigue. Respiratory: Positive for cough. Negative for shortness of breath and wheezing. Cardiovascular: Positive for palpitations. Negative for chest pain and leg swelling. Gastrointestinal: Negative for nausea. Physical Exam: BP 120/70 | Pulse 120 Comment: IRREGULAR | Wt 111.3 kg (245 lb 6 oz) | LMP 11/06/2006 | BMI 39.91 kg/m | BSA 2.27 m Physical Exam HENT: Head: Normocephalic. Cardiovascular: Rate and Rhythm: Tachycardia present. Rhythm irregular. Pulmonary: Effort: Pulmonary effort is normal. Breath sounds: Normal breath sounds. Neurological: General: No focal deficit present. Mental Status: She is alert and oriented to person, place, and time. Psychiatric: Mood and Affect: Mood normal. Behavior: Behavior normal. Thought Content: Thought content normal. Judgment: Judgment normal. Assessment and Plan: 1. Persistent atrial fibrillation (HCC) S/p cardioversion in ED Back in A fib with RVR- 110 bpm - only mild fatigue symptom. Reviewed with Cardiology team- Dr. Romero- Cardiology with contact patient by phone with directions. Recommend increasing metoprolol to 100 mg po bid Recommend adding amiodarone to 200 mg bid - EKG 2. Onychomycosis ongoing bilateral great toes 3. AN (generalized anxiety disorder) Mild increase in anxiety On wellbutrin, hold on adding vistaril due to hx of prolonged qt and starting amiodorone Under stress with recent a fib increase I have advised the patient to call our office incase of any worsening or new symptoms. I spent a total of 40-54 minutes (exact time 40 mins) on the date of service in preparation, delivery, and documentation of the care provided to Kimberly Hernandez excluding any time spent in the performance of separately billed services. Lillian, MSN, DONNA [facility] documented in this encounter Plan of Treatment Upcoming Encounters Date Type Specialty Care Team Description 08/20/2022 Office Visit Cardiology Rodo Romero, [address] [place] [address] 11/01/2022 Office Visit Family Medicine Luz Morales CRNP [address] [place] [address] 11/21/2022 Imaging Radiology 11/27/2022 Office Visit Gastroenterology Yumiko Gonzalez CRNP [address] [place] [address] 12/23/2022 Office Visit Cardiology Rodo Romero DO [address] [place] [address] 06/17/2023 Office Visit Sleep Disorders Ariana Beltran DO [address] [place] [address] Scheduled Orders Name Type Priority Associated Diagnoses Orde r Schedule EKG EKG Routine Persistent atrial fibrillation (HCC) Ordered: 08/01/2022 Scheduled Procedures Name Priority Associated Diagnoses Date/Ti [...] 01/17/2005 LUNG CANCER SCREENING - USE SMARTSET [id number] Completed 07/19/2022, 07/06/2021, 04/11/2020, Additional history exists GARDASIL-HPV IMMUNIZATION SERIES Aged Out No longer eligible based on patient's age to complete this topic Hepatitis B Aged Out No longer eligi ble based on patient's age to complete this topic documented as of this encounter Medical Devices Implanted Type Area Poolroom Table Attendant Device Identifier Shelf Expiration Date Model / Serial / Lot Wire Mailman - [id number] Implanted:Qty: 1 on 06/24/2022 by Natalie Sheffield IV, MD at [facility] [employer] : PERIPHL IV [id number] 12/13/2023 [id number] documented as of this encounter Visit Diagnoses Diagnosis Persistent atrial fibrillation (HCC)- Primary Atrial fibrillation Onychomycosis Dermatophytosis of nail AN (generalized anxiety disorder) Generalized anxiety disorder documented in this encounter Advance Directives [...] the patient have Health Care Power of Thread Dresser? No Care Teams Heel Sorter Relationship Specialty Start Date End Date Luz Morales CRNP [address] [place] [address] PCP - General Nurse Practitioner 09/27/20 documented as of this encounter"
--- OUTSIDE RECORDS SUMMARY | 2023-01-23 19:40 | External Medical Summary | Summary of Care ---
Author Name Unknown Organization [facility] Address [address] [place] [address] Phone [phone] Care Team Providers Care Checker/Stocker Name Role Phone Luz Morales Christel THOMPSON Primary Care Provider Reason for Visit * Reason Onset Date Comments Scheduling 07/26/2022 8 week light sta tus with Lynnette or Sol RD f/u 4 weeks, behavioral med Encounter Details Date Type Department Care Team Description 07/26/2022 Telephone Nutrition & Weight Management, [facility] [address] [place] [address] Zina Donovan PA-C [address] [place] [address] Scheduling (8 week light status with Lynnette ... Allergies Active Allergy Reactions Severity Noted Date Comments Erythromycin Rash 12/14/1999 Ibuprofen Rash 08/05/2011 Latex Rash 03/20/2007 Sulfa Antibiotics Rash 12/14/1999 documented as of this encounter (statuses as of 08/05/2022) Medications Medication Sig Dispensed Refills Start Date [...] as of this encounter (statuses as of 08/05/2022) Active Problems Problem Noted Date Onychomycosis 08/01/2022 [...] as of this encounter (statuses as of 08/05/2022) Resolved Problems Problem Noted Date Resolved Date [...] as of this encounter (statuses as of 08/05/2022) Immunizations Name Administration Dates Next Due COVID-19 mRNA, LNP-s, No Pre serve, 2-Dose Series ([employer]) 12/13/2020,05/30/2020,05/02/2020 COVID-19, LNP-s, No Preserve , Keith-sucrose, Ages 12+ (Pfizer) 07/04/2021 HEP A - Hepatitis A (Adult > 18 yrs) 03/20/2004 IPV - Polio Virus Vaccine (Inact) 03/20/2004 Meningococcal Polysaccharide Vaccine (Menommune) 03/20/2004 PPD 05/25/2003,05/10/2003,07/02/1995 Pneumococcal Conjugate Vacci ne, 20-valent ([id number]) 02/13/2022 Pneumococcal Polysaccharide PPV23 (Pneumovax) 02/05/2020,01/17/2005 Seasonal [...] Visit Cardiology Rodo Romero, [address] [place] [address] 11/01/2022 Office Visit Family Medicine Luz Morales CRNP [address] [place] [address] 11/21/2022 Imaging Radiology 11/27/2022 Office Visit Gastroenterology Yumiko Gonzalez CRNP [address] [place] [address] 12/23/2022 Office Visit Cardiology Rodo Romero, [address] [place] [address] 06/17/2023 Office Visit Sleep Disorders Ariana Beltran, [address] [place] [address] Scheduled Procedures Name Priority Associated Diagnoses Date/Ti [...] 01/17/2005 LUNG CANCER SCREENING - USE SMARTSET [id number] Completed 07/19/2022, 07/06/2021, 04/11/2020, Additional history exists GARDASIL-HPV IMMUNIZATION SERIES Aged Out No longer eligible based on patient's age to complete this topic Hepatitis B Aged Out No longer eligi ble based on patient's age to complete this topic documented as of this encounter Medical Devices Implanted Type Area Freelance Court Stenographer Device Identifier Shelf Expiration Date Model / Serial / Lot Wire Mailman - [id number] Implanted:Qty: 1 on 06/24/2022 by Natalie Sheffield IV, MD at [facility] [employer] : PERIPHL IV [id number] 12/13/2023 [id number] documented as of this encounter Advance Directives [...] the patient have Health Care Power of Fiber Drier Operator? No Care Teams Checker/Stocker Relationship Specialty Start Date End Date Luz Morales CRNP [address] [place] [address] PCP - General Nurse Practitioner 09/27/20 documented as of this encounter
--- OUTSIDE RECORDS SUMMARY | 2023-01-23 19:40 | External Medical Summary | Summary of Care ---
Author Name Unknown Organization [facility] Address [address] [place] [address] Phone [phone] Care Team Providers Care Injection Molding Supervisor Name Role Phone Luz Morales Christel THOMPSON Primary Care Provider Reason for Visit * Reason Onset Date Comments Follow Up 08/01/2022 Encounter Details Date Type Department Care Team Description 08/01/2022 Telephone Cardiology, [facility] [address] [place] [address] Rodo Romero, [address] [place] [address] Follow Up Allergies Active Allergy Reactions Severity Noted Date [...] 07/19/2022 Losartan Potassium 50 MG Oral Tablet (Cozaar)Rinao [...] before bedtime. 60 Tablet 2 08/01/2022 Active Metoprolol Succinate ER 50 MG Oral Tablet [...] (Pfizer) 07/04/2021 Pneumococcal Conjugate Vacci ne, 20-valent ([id number]) 02/13/2022 Pneumococcal Polysaccharide PPV23 (Pneumovax) 02/05/2020 Seasonal [...] encounter Miscellaneous Notes * Telephone Encounter - Rosie Alcocer LPN - 08/01/2022 4:10 PM EDT Attempted pt by phone. Left message on for pt to call back for information in this encounter. Also sent Scoopshot. * Telephone Encounter - Rodo Romero DO - 08/01/2022 3:56 PM EDT In follow-up of yesterday's phone encounter. Patient remains in atrial fibrillation at time of family practice visit. Reportedly minimally symptomatic to asymptomatic with the exception of fatigue. EKG reveals atrial fibrillation with ventricular rate of 110 beats per minute, Corrected QT interval 481 milliseconds. Plan: Of note, patient's treatment with diltiazem had been discontinued at the time for repeat ablation in June. Increase metoprolol succinate to 100 milligrams twice daily. Add back amiodarone 200 milligrams twice daily. Chest x-ray, liver function test, thyroid function tests, stable to time of emergency room visit 07/24/2022. Will tentatively plan for a 3 month course of amiodarone to try to retrain her heart to be in sinusrhythm. Will arrange repeat trial of cardioversion the week of 08/12/2022 when I am back at the hospital. Rodo Romero DO documented in this encounter Plan of Treatment Upcoming Encounters Date Type Specialty Care Team Description 08/20/2022 Office Visit Cardiology Rodo Romero DO [address] [place] [address] 11/01/2022 Office Visit Family Medicine Luz Morales CRNP [address] [place] [address] 11/21/2022 Imaging Radiology 11/27/2022 Office Visit Gastroenterology Yumiko Gonzalez CRNP [address] [place] [address] 12/23/2022 Office Visit Cardiology Rodo Romero DO [address] [place] [address] 06/17/2023 Office Visit Sleep Disorders Ariana Beltran DO [address] [place] [address] Scheduled Orders Name Type Priority Associated Diagnoses Orde r Schedule HEART ELECTROCONVERSION, EXTERNAL Procedures Routine Persistent atrial fibrillation (HCC) Ordered: 08/01/2022 Scheduled Procedures Name Priority Associated Diagnoses Date/Ti me COLONOSCOPY FLEXIBLE PROXIMA L DIAGNOSTIC Recall History of colonic polyps Health Maintenance Due Date Last Done Comments Alpha-1 Antitrypsin 1972 DIABETES-EYE EXAM 06/26/2016 06/27/2015, , 05/30/2015 Albumin/Creatinine Ratio 05/09/2022 05/09/2021, 2 10/2020 HbA1c 06/03/2022 12/03/2021, 05/0 06/2021, 02/06/2021, Additional [...] 01/17/2005 LUNG CANCER SCREENING - USE SMARTSET [id number] Completed 07/19/2022, 07/06/2021, 04/11/2020, Additional history exists GARDASIL-HPV IMMUNIZATION SERIES Aged Out No longer eligible based on patient's age to complete this topic Hepatitis B Aged Out No longer eligi ble based on patient's age to complete this topic documented as of this encounter Medical Devices Implanted Type Area Mall Manager Device Identifier Shelf Expiration Date Model / Serial / Lot Wire Mailman - [id number] Implanted:Qty: 1 on 06/24/2022 by Natalie Sheffield IV, MD at [facility] [place] [id number] 12/13/2023 [id number] documented as of this encounter Visit Diagnoses [...] the patient have Health Care Power of Die Holder? No Care Teams Injection Molding Supervisor Relationship Specialty Start Date End Date Luz Moraels CRNP [address] [place] [address] PCP - General Nurse Practitioner 09/27/20 documented as of this encounter
--- OUTSIDE RECORDS SUMMARY | 2023-01-23 19:40 | External Medical Summary | Summary of Care ---
Author Name Unknown Organization [facility] Address [address] [place] [address] Phone [phone] Care Team Providers Care Proofreader Name Role Phone Luz Morales DONNA Primary Care Provider Encounter Details Date Type Department Care Team Description 08/14/2022 Result Scan Unspecified Department <No scans attached> Allergies Active Allergy Reactions Severity Noted Date [...] mRNA, LNP-s, No Pre serve, 2-Dose Series (Verosee) 12/13/2020,05/30/2020,05/02/2020 COVID-19, LNP-s, No Preserve , Keith-sucrose, Ages 12+ (Pfizer) 07/04/2021 Pneumococcal Conjugate Vacci ne, 20-valent ([id number]) 02/13/2022 Pneumococcal Polysaccharide PPV23 (Pneumovax) 02/05/2020 Seasonal [...] Description 08/20/2022 Office Visit Cardiology Rodo Romero, DO [address] [place] [address] 11/01/2022 Office Visit Family Medicine Luz Morales CRNP [address] [place] [address] 11/21/2022 Imaging Radiology 11/27/2022 Office Visit Gastroenterology Yumiko Gonzalez CRNP [address] [place] [address] 12/23/2022 Office Visit Cardiology Rodo Romero, [address] [place] [address] 06/17/2023 Office Visit Sleep Disorders Ariana Beltran, [address] [place] [address] Scheduled Procedures Name Priority Associated Diagnoses Date/Ti [...] 01/17/2005 LUNG CANCER SCREENING - USE SMARTSET 36624 Completed 07/19/2022, 07/06/2021, 04/11/2020, Additional history exists GARDASIL-HPV IMMUNIZATION SERIES Aged Out No longer eligible based on patient's age to complete this topic Hepatitis B Aged Out No longer eligi ble based on patient's age to complete this topic documented as of this encounter Medical Devices Implanted Type Area Sales Support Manager Device Identifier Shelf Expiration Date Model / Serial / Lot Wire Mailman - [id number] Implanted:Qty: 1 on 06/24/2022 by Natalie Sheffield IV, MD at [facility] [employer] : PERIPJIM MAHAJAN [id number] 12/13/2023 [id number] documented as of this encounter Procedures Procedure Name Priority Date/Time Associated Diagnosis Comments CARDIOLOGY SCANNED RESULT 08/14/2022 documented in this encounter Results * CARDIOLOGY SCANNED RESULT (08/14/2022) 08/14/2022 No Physician Data Unknown OTHER documented in this encounter Advance Directives Latest [...] the patient have Health Care Power of Quilting Machine Helper? No Care Teams Proofreader Relationship Specialty Start Date End Date Luz Morales CRNP [address] [place] [address] PCP - General Nurse Practitioner 09/27/20 documented as of this encounter
--- OUTSIDE RECORDS SUMMARY | 2023-01-23 19:40 | External Medical Summary | Summary of Care ---
Author Name Unknown Organization [facility] Address [address] [place] [address] Phone [phone] Care Team Providers Care Financial Supervisor Name Role Phone Luz Morales Christel THOMPSON Primary Care Provider Reason for Visit * Reason Onset Date Comments Follow Up 08/01/2022 Encounter Details Date Type Department Care Team Description 08/01/2022 Telephone Cardiology, [facility] [address] [place] [address] Rodo Romero, [address] [place] [address] Follow Up Allergies Active Allergy Reactions Severity Noted Date Comments Erythromycin Rash 12/14/1999 Ibuprofen Rash 08/05/2011 Latex Rash 03/20/2007 Sulfa Antibiotics Rash 12/14/1999 documented as of this encounter (statuses as of 08/02/2022) Medications Medication Sig Dispensed Refills Start Date [...] as of this encounter (statuses as of 08/02/2022) Active Problems Problem Noted Date Onychomycosis 08/01/2022 [...] as of this encounter (statuses as of 08/02/2022) Resolved Problems Problem Noted Date Resolved Date [...] use disorder 01/01/2009 06/02/2015 EXTRINSIC ASTHMA, UNSPEC 05/12/20032009 Major depressive disorder 2016 Overview: ICD-10 update of inactive term documented as of this encounter (statuses as of 08/02/2022) Immunizations Name Administration Dates Next Due COVID-19 mRNA, LNP-s, No Pre serve, 2-Dose Series (Pfizer) 12/13/2020,05/30/2020,05/02/2020 COVID-19, LNP-s, No Preserve , Keith-sucrose, Ages 12+ (Pfizer) 07/04/2021 HEP A - Hepatitis A (Adult > 18 yrs) 03/20/2004 IPV - Polio Virus Vaccine (Inact) 03/20/2004 Meningococcal Polysaccharide Vaccine (Menommune) 03/20/2004 PPD 05/25/2003,05/10/2003,07/02/1995 Pneumococcal Conjugate Vacci ne, 20-valent ([id number]) 02/13/2022 Pneumococcal Polysaccharide PPV23 (Pneumovax) 02/05/2020,01/17/2005 Seasonal [...] encounter Miscellaneous Notes * Telephone Encounter - Adilia Piper RN - 08/02/2022 11:09 AM EDT Called, spoke with patient. Reviewed information below, verified patient did receive and reviewed instructions via NextWidgetst as well. Started increased dose metoprolol last evening. Awaiting pharmacy to fill Amiodarone. Agreeable to proceed with Cardioversion as planned. Scheduled for 08/14/22 at 0715 doc time. Elucid Bioimaginghart sent to patient with all details/instructions as per request. * Telephone Encounter - Rosie Alcocer LPN - 08/01/2022 4:10 PM EDT Attempted pt by phone. Left message on for pt to call back for information in this encounter. Also sent ABOVE Solutionshart. * Telephone Encounter - Rodo Romero DO [...] Rodo Romero DO [address] [place] [address] 11/01/2022 Office Visit Family Medicine Luz Morales CRNP [address] [place] [address] 11/21/2022 Imaging Radiology 11/27/2022 Office Visit Gastroenterology Yumiko Gonzalez CRNP [address] [place] [address] 12/23/2022 Office Visit Cardiology Rodo Romero DO [address] [place] [address] 06/17/2023 Office Visit Sleep Disorders Ariana Beltran, DO [address] [place] [address] Scheduled Orders Name Type Priority Associated Diagnoses [...] 01/17/2005 LUNG CANCER SCREENING - USE SMARTSET 03186 Completed 07/19/2022, 07/06/2021, 04/11/2020, Additional history exists GARDASIL-HPV IMMUNIZATION SERIES Aged Out No longer eligible based on patient's age to complete this topic Hepatitis B Aged Out No longer eligi ble based on patient's age to complete this topic documented as of this encounter Medical Devices Implanted Type Area Swimmer Device Identifier Shelf Expiration Date Model / Serial / Lot Wire Mailman - [id number] Implanted:Qty: 1 on 06/24/2022 by Natalie Sheffield IV, MD at [facility] [place] M2M Solution : PERIPHL [place] [id number] 12/13/2023 [id number] / [id number] documented as of this encounter Visit Diagnoses [...] the patient have Health Care Power of Senior Director Creative Services? No Care Teams Financial Supervisor Relationship Specialty Start Date End Date Luz Morales CRNP [address] [place] [address] PCP - General Nurse Practitioner 09/27/20 documented as of this encounter
--- OUTSIDE RECORDS SUMMARY | 2023-01-23 19:40 | External Medical Summary | Summary of Care ---
Author Name Unknown Organization [facility] Address [address] [place] [address] Phone [phone] Care Team Providers Care Textile Colorist Formulator Name Role Phone Luz Morales Christel THOMPSON Primary Care Provider Reason for Visit * Reason Onset Date Comments Follow Up 08/01/2022 Encounter Details Date Type Department Care Team Description 08/01/2022 Telephone Cardiology, [facility] [address] [place] [address] Rodo Romero, [address] [place] [address] Follow Up Allergies Active Allergy Reactions Severity [...] PPD 05/25/2003,05/10/2003,07/02/1995 Pneumococcal Conjugate Vacci ne, 20-valent ([id number]) 02/13/2022 Pneumococcal Polysaccharide PPV23 (Pneumovax) 02/05/2020,01/17/2005 Seasonal [...] patient did receive and reviewed instructions via MovieLinet as well. Started increased dose metoprolol last evening. Awaiting pharmacy to fill Amiodarone. Agreeable to proceed with Cardioversion as planned. Scheduled for 08/14/22 at 0715 doc time. ImpactFlohart sent to patient with all details/instructions as per request. * Telephone Encounter - Rosie Alcocer LPN - 08/01/2022 4:10 PM EDT Attempted pt by phone. Left message on for pt to call back for information in this encounter. Also sent MalibuIQhart. * Telephone Encounter - Rodo Romero DO [...] Rodo Romero DO [address] [place] [address] 11/01/2022 Office Visit Family Medicine Luz Morales CRNP [address] [place] [address] 11/21/2022 Imaging Radiology 11/27/2022 Office Visit Gastroenterology Yumiko Gonzalez CRNP [address] [place] [address] 12/23/2022 Office Visit Cardiology Rodo Romero DO [address] [place] [address] 06/17/2023 Office Visit Sleep Disorders Ariana Beltran, DO [address] [place] [address] Scheduled Orders Name Type Priority Associated Diagnoses [...] 01/17/2005 LUNG CANCER SCREENING - USE SMARTSET 44894 Completed 07/19/2022, 07/06/2021, 04/11/2020, Additional history exists GARDASIL-HPV IMMUNIZATION SERIES Aged Out No longer eligible based on patient's age to complete this topic Hepatitis B Aged Out No longer eligi ble based on patient's age to complete this topic documented as of this encounter Medical Devices Implanted Type Area Medical Assistant Dermatology Device Identifier Shelf Expiration Date Model / Serial / Lot Wire Mailman - [id number] Implanted:Qty: 1 on 06/24/2022 by Natalie Sheffield IV, MD at [facility] [employer] : PERIPHL [place] [id number] 12/13/2023 [id number] / [id number] documented as of this encounter Visit Diagnoses [...] patient have Health Care Power of Auto Design Checker? No Care Teams Textile Colorist Formulator Relationship Specialty Start Date End Date Luz Morales CRNP [address] [place] [address] PCP - General Nurse Practitioner 09/27/20 documented as of this encounter
--- OUTSIDE RECORDS SUMMARY | 2023-01-23 19:40 | External Medical Summary | Summary of Care ---
Author Name Unknown Organization [facility] Address [address] [place] [address] Phone [phone] Care Team Providers Care Regional Sales Director Name Role Phone Luz Morales Christel THOMPSON Primary Care Provider Reason for Visit * Reason Onset Date Comments Follow Up 08/01/2022 Encounter Details Date Type Department Care Team Description 08/01/2022 Telephone Cardiology, [facility] [address] [place] [address] Rodo Romero, [address] [place] [address] Follow Up Allergies Active Allergy Reactions Severity [...] (Pfizer) 07/04/2021 Pneumococcal Conjugate Vacci ne, 20-valent ([id number]) 02/13/2022 Pneumococcal Polysaccharide PPV23 (Pneumovax) 02/05/2020 Seasonal [...] for information in this encounter. Also sent Ventive. * Telephone Encounter - Rodo Romero DO [...] Cardiology Rodo Romero DO [address] [place] [address] 11/01/2022 Office Visit Family Medicine Luz Morales CRNP [address] [place] [address] 11/21/2022 Imaging Radiology 11/27/2022 Office Visit Gastroenterology Yumiko Gonzalez CRNP [address] [place] [address] 12/23/2022 Office Visit Cardiology Rodo Romero DO [address] [place] [address] 06/17/2023 Office Visit Sleep Disorders Ariana Beltran DO [address] [place] [address] Scheduled Orders Name Type Priority Associated Diagnoses [...] 01/17/2005 LUNG CANCER SCREENING - USE SMARTSET 13708 Completed 07/19/2022, 07/06/2021, 04/11/2020, Additional history exists GARDASIL-HPV IMMUNIZATION SERIES Aged Out No longer eligible based on patient's age to complete this topic Hepatitis B Aged Out No longer eligi ble based on patient's age to complete this topic documented as of this encounter Medical Devices Implanted Type Area Personal Lines Account Manager Device Identifier Shelf Expiration Date Model / Serial / Lot Wire Mailman - [id number] Implanted:Qty: 1 on 06/24/2022 by Natalie Sheffield IV, MD at [facility] : DONNA MAHAJAN [id number] 12/13/2023 [id number] documented as of this encounter Visit Diagnoses [...] the patient have Health Care Power of Food Clerk? No Care Teams Regional Sales Director Relationship Specialty Start Date End Date Luz Morales CRNP [address] [place] [address] PCP - General Nurse Practitioner 09/27/20 documented as of this encounter
--- OUTSIDE RECORDS SUMMARY | 2023-01-23 19:40 | External Medical Summary | Summary of Care ---
Author Name Unknown Organization [facility] Address [address] [place] [address] Phone [phone] Care Team Providers Care Dip Tanker Name Role Phone Luz Morales Christel THOMPSON Primary Care Provider Reason for Visit * Reason Onset Date Comments Scheduling 07/26/2022 8 week light sta tus with Lynnette or Sol RD f/u 4 weeks, behavioral med Encounter Details Date Type Department Care Team Description 07/26/2022 Telephone Nutrition & Weight Management, [facility] [address] [place] [address] Zina Donovan PA-C [address] [place] [address] Scheduling (8 week light status with Lynnette [...] for Wheezing. 3 mL 11 07/19/2019 Active Ciclopirox 8 % External Solution Apply over nail and surrounding skin. Apply daily over previous coat. After seven (7) days, may remove with alcohol and continue cycle. 6.6 mL 1 06/28/2020 Active Calcium Carbonate 600 MG Oral Tablet [...] Oral BID (0730,1630),Indications: stomach, Reported on 07/19/2022 Metoprolol Succinate ER 50 MG Oral Tablet Extended Release 24 Hour Two tablets in AM/one tablet in PM. 0 06/24/2022 Active Losartan Potassium 50 MG Oral Tablet [...] a week. 6 mL 1 07/25/2022 Active Hospital, Clinic, or Other Facility Administered [...] of 08/01/2022) Active Problems Problem Noted Date Hypertensive heart disease without conge stive heart [...] mRNA, LNP-s, No Pre serve, 2-Dose Series (Anywhere to Go) 12/13/2020,05/30/2020,05/02/2020 COVID-19, LNP-s, No Preserve , Keith-sucrose, Ages 12+ (Pfizer) 07/04/2021 HEP A - Hepatitis A (Adult > 18 yrs) 03/20/2004 IPV - Polio Virus Vaccine (Inact) 03/20/2004 Meningococcal Polysaccharide Vaccine (Menommune) 03/20/2004 PPD 05/25/2003,05/10/2003,07/02/1995 Pneumococcal Conjugate Vacci ne, 20-valent ([id number]) 02/13/2022 Pneumococcal Polysaccharide PPV23 (Pneumovax) 02/05/2020,01/17/2005 Seasonal [...] Encounters Date Type Specialty Care Team Description 08/01/2022 Office Visit Family Medicine Luz Morales CRNP [address] [place] [address] 08/20/2022 Office Visit Cardiology Rodo Romero, DO [address] [place] [address] 11/21/2022 Imaging Radiology 11/27/2022 Office Visit Gastroenterology Yumiko Gonzalez CRNP [address] [place] [address] 12/23/2022 Office Visit Cardiology Rodo Romero, DO [address] [place] [address] 06/17/2023 Office Visit Sleep Disorders Ariana Beltran, DO [address] [place] [address] Scheduled Procedures Name Priority Associated Diagnoses Date/Ti [...] 01/17/2005 LUNG CANCER SCREENING - USE SMARTSET [address] Completed 07/19/2022, 07/06/2021, 04/11/2020, Additional history exists GARDASIL-HPV IMMUNIZATION SERIES Aged Out No longer eligible based on patient's age to complete this topic Hepatitis B Aged Out No longer eligi ble based on patient's age to complete this topic documented as of this encounter Medical Devices Implanted Type Area Plaster Patternmaker Device Identifier Shelf Expiration Date Model / Serial / Lot Wire Mailman - [id number] Implanted:Qty: 1 on 06/24/2022 by Natalie Sheffield IV, MD at [facility] : DONNA MAHAJAN [id number] 12/13/2023 [id number] documented as of this encounter Advance Directives [...] the patient have Health Care Power of Management Associate? No Care Teams Dip Tanker Relationship Specialty Start Date End Date Luz Morales CRNP [address] [place] [address] PCP - General Nurse Practitioner 09/27/20 documented as of this encounter
[2023-01-23 19:57] LABS: Basophils # (auto) 0.05 K/uL (0.00-0.20); Basophils % (auto) 0.5 %; Eosinophils # (auto) 0.06 K/uL (0.00-0.50); Eosinophils % (auto) 0.6 %; Hematocrit (blood only) 43.6 % (37.0-47.0); Hemoglobin 14.5 g/dl (12.0-16.0); Immature Granulocytes # (auto) 0.04 K/uL (0.01-0.20); Immature Granulocytes % (auto) 0.4 %; Lymphocytes # (auto) 1.59 K/uL (1.20-3.40); Lymphocytes % (auto) 16.8 %; Mean Corpuscular Hemoglobin 31.4 pg (25.0-34.0); Mean Corpuscular Hgb Conc 33.3 g/dL (32.0-36.0); Mean Corpuscular Volume 94.4 fL (80.0-100.0); Mean Platelet Volume 9.5 fL (9.4-12.4); Monocytes # (auto) 0.68 K/uL (0.11-0.59); Monocytes % (auto) 7.2 %; Neutrophils # (auto) 7.05 K/uL (1.40-6.50); Neutrophils % (auto) 74.5 %; Platelet Count 269 K/uL (130-400); RDW Coefficient of Variation 13.5 % (11.5-14.5); RDW Standard Deviation 46.6 fL (36.4-46.3); Red Blood Count 4.62 M/uL (4.20-5.40); White Blood Count 9.47 K/ul (4.8-10.8)
[2023-01-23 20:13] LABS: Albumin Level 4.7 gm/dl (3.4-5.0); Bilirubin,Total 0.5 mg/dl (0.2-1.0); Calcium 10.1 mg/dl (8.6-10.3); Magnesium 1.8 mg/dl (1.7-2.4); Potassium 4.6 mmol/L (3.5-5.1)
[2023-01-23] MEDS ORDERED: OPTIRAY 320 125ml IV ONE (20:13)
[2023-01-23 20:19] LABS: Albumin Globulin Ratio 1.4 (0.9-2); BUN Creatinine Ratio 22.5 (10-20); Creatinine Clr Calc Pharmacy 74.2 ml/min; Est GFR (African American) 77.2 ml/min; Est GFR (Non-African American) 66.6 ml/min; Globulin 3.4 gm/dl (2.5-4.0); Total Protein 8.1 gm/dl (6.0-8.3)
[2023-01-23 20:25] LABS: Troponin I High Sensitivity 11.4 pg/ml (0-14)
--- NOTE | 2023-01-23 20:27 | Emergency Department Note ---
Impression & Plan Acute CVA (cerebrovascular accident) ED Provider Note NAME: PALLAVI WIGGINS AGE: 67 SEX: F : 1955 ARRIVES VIA: Walk-In INFORMANT: Patient ED PROVIDER(S): Michele Coronado DO CHIEF COMPLAINT: Expressive aphasia HPI: Patient is a 67-year-old female who presents to the ER with daughter at bedside who notes that patient came over to her house around 2:00 and she noticed that she was having trouble getting her words out. Later she noticed that she was having trouble with her right arm and consequently brought her in. She does have a history of 2 previous strokes. Last known well is unclear as no one has seen the patient today. Patient denies any headache or change in vision. She admits to some right arm weakness. No chest pain or shortness of breath. No nausea, vomiting, or diarrhea. No dysuria, urgency, or frequency. No other exacerbating or remitting factors. She did take her Eliquis earlier today. ADDITIONAL HISTORY OBTAINED: Per HPI Chronic Medical/Social Conditions Affecting Care: Per HPI PAST MEDICAL HISTORY:See Below PAST SURGICAL HISTORY:See Below FAMILY HISTORY:See Below SOCIAL HISTORY:See Below HOME MEDICATIONS:See Below ALLERGIES:See Below VITALS:See Below PHYSICAL EXAMINATION: GENERAL: Sitting up in bed, alert, well appearing, well nourished, no distress, non-toxic EYE EXAM: normal conjunctiva. PERRL and EOM's grossly intact. OROPHARYNX:mucous membranes are moist LUNGS: Clear to auscultation. Normal chest wall mechanics HEART: no murmurs, S1 normal and S2 normal ABDOMEN: abdomen soft, non-tender, normo-active bowel sounds, no masses, no rebound or guarding. BACK: Back is symmetrical on inspection and there is no deformity, no midline tenderness, no CVA tenderness. SKIN: no rashes and no bruising UPPER EXTREMITIES: upper extremities are grossly normal. LOWER EXTREMITIES: No pitting edema. NEURO EXAM: Normal sensorium, cranial nerves II-XII intact, trouble getting her words out with some slurred speech, mild weakness in the right upper, no weakness of legs. No drift. Finger to nose intact. Gross sensation intact. MEDICAL DECISION MAKING: Patient is a 67-year-old female who presents ER for above-stated complaint. IV was established blood work was obtained. Labs show no significant leukocytosis or anemia. INR unremarkable. BMP along with LFTs bilirubin and troponin was negative. CT angios of the head and neck were negative. EKG was unremarkable. Patient does have expressive aphasia with slurred speech and some mild right arm weakness. I do favor that this consistent with a stroke. Unknown last known well. Patient is also on a NOAC and patient was admitted and was not a TNK candidate as patient is on Eliquis and we do not know last known well. Discussed case with the hospitalist for further evaluation management and treatment. External Records Reviewed: CVA on 08/[address] Antunez she Consults/Care Managements Discussions: Per MDM Triage Nursing notes reviewed. Limited review of prior medical records performed Vital Signs: reviewed and remarkable for HTN Differential diagnosis: Differential Diagnosis includes but is not limited to ischemic Stroke, hemorrhagic stroke, bells palsy, mass, neoplasm, migraine headache, seizure, subarachnoid hemorrhage, TIA, and transient global amnesia. ER treatment provided: See below Diagnostics interpreted by me include EKG and cardiac monitoring as listed below: -Cardiac Monitoring: An order was placed for continuous cardiac monitoring. The monitor shows a rate of 60 with sinus rhythm. -ECG: Sinus rhythm rate of 54 Normal axis No PVCs QTc 487 -Laboratory studies:Interpreted by me as stated above in MDM and shown below. Imaging studies: Xrays: As interpreted by me:none CTs show: CT of the head per my read showed no obvious large bleed CT angio of the head and neck was negative per radiology Procedures:none Critical Care: [None] Past Med/Surg History Medical History ADD (attention deficit disorder) Asthma inhaler daily/nebulizer prn Atrial fibrillation follows with Dr. Romero--on eliquis/metoprolol/amiodarone Cardiac murmur Cardiomyopathy Tachycardiac vs idopathic CM (EF 48% in 2018- improved to 55% in 11/2021). Negative nuclear stress test 2017 and 01/2022 COPD (chronic obstructive pulmonary disease) Per records Depression H/O migraine Hepatitis C IN REMISSION HLD (hyperlipidemia) HTN (hypertension) Hyperthyroidism RADIOACTIVE IODINE TREATMENT Left ventricular systolic dysfunction (LVSD) History of dynamic ventricular outflow tract obstruction No significant LV outflow tract obstruction noted on resting ECHO 11/2021 per cardio records Mitral regurgitation Morbid obesity with BMI of 40.0-44.9, adult On anticoagulant therapy eliquis daily Prediabetes per pt reason for metformin Sleep apnea CPAP Surgical History History of esophagogastroduodenoscopy (EGD) with EUS @ [facility] 04/19/22 History of tooth extraction History of cardiac radiofrequency ablation x2--last 06/24/[address] [facility] [place] Hx of breast biopsy History of appendectomy History of colonoscopy History of cardioversion x4--last 07/24/22---follows with Dr. Romero also had 03/06/22, 11/2021 and 01/2018 S/P ovarian cystectomy Family History Grandfather Family hx of colon cancer Family/Other Family history of diabetes mellitus Other No family history of adverse response to anesthesia Social History Smoking Status: Former smoker Tobacco Type: Cigarettes Second Hand Exposure: No; Do You Dip or Chew Tobacco: No; Hx Alcohol Use: Yes Alcohol type: wine Hx Substance Use: No Preferred Language: Guamanian Communication Ability: Effective Golf [employer] St[employer] Required: No Beliefs That Will Affect Care: None Current Living Situation: Alone Feels Safe at Home: Yes Assistive Devices: Glasses and Nebulizer Allergies Allergies Allergy/AdvReac Type Severity Reaction Status Date / Time erythromycin base Allergy Severe Rash Verified 08/15/22 15:20 Sulfa (Sulfonamide Allergy Severe Rash Verified 08/15/22 15:20 Antibiotics) aspirin Allergy Intermediate Rash Verified 08/15/22 15:20 latex Allergy Intermediate RASH Verified 08/15/22 15:20 Home Meds Home Medications Medication Instructions Recorded Confirmed apixaban 5 mg tablet (Eliquis) 5 mg PO BID 01/06/18 08/15/22 ascorbic acid (vitamin C) 1,000 mg 500 mg PO QAM 01/06/18 08/15/22 tablet (Vitamin C) atorvastatin 40 mg tablet 40 mg PO HS 01/06/18 08/15/22 cholecalciferol (vitamin D3) 10 400 unit PO QAM 01/06/18 08/15/22 mcg (400 unit) tablet (Vitamin D3) multivitamin 1 tab PO QAM 01/06/18 08/15/22 omega 0-iql-qxc-fish oil 1,000 mg 1 cap PO .Q3DAYS 01/06/18 08/15/22 (120 mg-180 mg) capsule (Fish Oil) bupropion HCl 300 mg 24 hr tablet, 300 mg PO QAM 07/22/20 08/15/22 extended release acetaminophen 325 mg tablet 650 mg PO QID PRN Pain 11/29/21 08/15/22 calcium carbonate 600 mg calcium 600 mg PO QAM 11/29/21 08/15/22 (1,500 mg) tablet cetirizine 10 mg tablet 10 mg PO HS 11/29/21 08/15/22 ciclopirox 8 % topical solution 1 applic topical HS 11/29/21 08/15/22 diclofenac sodium 1 % topical gel 2 g topical QID PRN Pain 11/29/21 08/15/22 dulaglutide 3 mg/0.5 mL 3 mg subcut WK 11/29/21 08/15/22 subcutaneous pen injector ([facility]) epinephrine 0.3 mg/0.3 mL 0.3 mg IM Q4H PRN Allergic Reaction 11/29/21 08/15/22 injection, auto-injector fluticasone fur. 200 mcg-umeclid 1 inh inhalation QAM 11/29/21 08/15/22 62.5 mcg-vilant 25 mcg inhalat.powder (Trelegy Ellipta) losartan 50 mg tablet (Cozaar) 50 mg PO QAM 11/29/21 08/15/22 mepolizumab 100 mg/mL subcutaneous 100 mg subcut .[id number] 11/29/21 08/15/22 auto-injector (Nucala) metformin 500 mg tablet 500 mg PO BID 11/29/21 08/15/22 montelukast 10 mg tablet 10 mg PO HS 11/29/21 08/15/22 (Singulair) mupirocin 2 % topical ointment 1 applic topical BID PRN nasal 11/29/21 08/15/22 dryness albuterol sulfate 2.5 mg/3 mL 2.5 mg inhalation DIRECTED PRN 07/24/22 08/15/22 (0.083 %) solution for nebulization shortness of breath albuterol sulfate 90 mcg/actuation 2 puff inhalation Q4 PRN Shortness 07/24/22 08/15/22 aerosol inhaler Of Breath Or Wheezing metoprolol succinate 50 mg 100 mg PO BID 07/24/22 08/15/22 tablet,extended release 24 hr amiodarone 200 mg tablet 200 mg PO BID 08/08/22 08/15/22 levalbuterol HCl 1.25 mg/3 mL 1.25 mg inhalation DIRECTED PRN 08/15/22 08/15/22 solution for nebulization Shortness Of Breath Or Wheezing Results & Data (ED) Vital Signs Vital Signs - 24 hr 01/23/23 19:32 01/23/23 19:40 01/23/23 19:41 Temperature 36.6 C Temperature Source Temporal Artery Scan Pulse Rate 54 L 50 L 50 L Pulse Rate [Finger] Pulse Rate from SpO2 Sensor 53 L Pulse Rhythm Regular Pulse Rhythm [Finger] Pulse Strength Normal Pulse Strength [Finger] Respiratory Rate 18 23 Respiratory Effort / Characteristics Non-Labored Spontaneous Respiratory Depth Normal Respiratory Pattern Regular Blood Pressure 205/96 H Blood Pressure [Right Arm] Blood Pressure Mean 132 Blood Pressure Mean [Right Arm] Blood Pressure Position Sitting Pulse Oximetry 96 93 Oxygen Delivery Method Room Air Sepsis Recent Fever Within 48 Hours No Sepsis New/Unexplained Change in Mental Status N/A Sepsis Action Taken by Nursing No Action Required 01/23/23 19:59 01/23/23 19:59 01/23/23 20:00 Temperature Temperature Source Pulse Rate 57 L 57 L Pulse Rate [Finger] Pulse Rate from SpO2 Sensor 58 L 59 L Pulse Rhythm Pulse Rhythm [Finger] Pulse Strength Pulse Strength [Finger] Respiratory Rate 26 H 25 H Respiratory Effort / Characteristics Respiratory Depth Respiratory Pattern Blood Pressure 189/91 H Blood Pressure [Right Arm] Blood Pressure Mean 142 Blood Pressure Mean [Right Arm] Blood Pressure Position Pulse Oximetry 94 95 Oxygen Delivery Method Sepsis Recent Fever Within 48 Hours Sepsis New/Unexplained Change in Mental Status Sepsis Action Taken by Nursing 01/23/23 20:32 01/23/23 21:28 Temperature Temperature Source Pulse Rate Pulse Rate [Finger] 55 L 47 L Pulse Rate from SpO2 Sensor Pulse Rhythm Pulse Rhythm [Finger] Irregular Pulse Strength Pulse Strength [Finger] Normal Respiratory Rate 18 20 Respiratory Effort / Characteristics Non-Labored Respiratory Depth Normal Respiratory Pattern Regular Blood Pressure Blood Pressure [Right Arm] 167/80 H 160/105 H Blood Pressure Mean Blood Pressure Mean [Right Arm] 109 123 Blood Pressure Position Pulse Oximetry 94 97 Oxygen Delivery Method Room Air Room Air Sepsis Recent Fever Within 48 Hours Sepsis New/Unexplained Change in Mental Status Sepsis Action Taken by Nursing Laboratory Data 01/23/23 19:47 01/23/23 19:47 Lab Results 01/23/23 01/23/23 01/23/23 Range/Units 19:44 19:47 20:51 WBC 9.47 (4.8-10.8) K/ul RBC 4.62 (4.20-5.40) M/uL Hgb 14.5 (12.0-16.0) g/dl Hct 43.6 (37.0-47.0) % MCV 94.4 (80.0-100.0) fL MCH 31.4 (25.0-34.0) pg MCHC 33.3 (32.0-36.0) g/dL RDW Std Deviation 46.6 H (36.4-46.3) fL RDW Coeff of Yeyo 13.5 (11.5-14.5) % Plt Count 269 (130-400) K/uL MPV 9.5 (9.4-12.4) fL Immature Gran % (Auto) 0.4 % Neut % (Auto) 74.5 % Lymph % (Auto) 16.8 % [place] % (Auto) 7.2 % Eos % (Auto) 0.6 % Baso % (Auto) 0.5 % Neut # (Auto) 7.05 H (1.40-6.50) K/uL Lymph # (Auto) 1.59 (1.20-3.40) K/uL [place] # (Auto) 0.68 H (0.11-0.59) K/uL Eos # (Auto) 0.06 (0.00-0.50) K/uL Baso # (Auto) 0.05 (0.00-0.20) K/uL Immature Gran # (Auto) 0.04 (0.01-0.20) K/uL PT Cancelled 11.5 INR Cancelled 1.1 APTT Cancelled 28.1 PTT Ratio Cancelled 1.0 Sodium 133 L (136-145) mmol/L Potassium 4.6 (3.5-5.1) mmol/L Chloride 99 (98-107) mmol/L Carbon Dioxide 23 (21-32) mmol/L Anion Gap 11 (3-11) BUN 20 (6-23) mg/dl Creatinine 0.89 (0.6-1.2) mg/dl Est Cr Clr Drug Dosing 74.2 ml/min Est GFR ( Amer) 77.2 ml/min Est GFR (Non-Af Amer) 66.6 ml/min BUN/Creatinine Ratio 22.5 H (10-20) Glucose 189 H (70-99(Fasting)) mg/dl POC Glucose 176 H (70-99) mg/dl Calcium 10.1 (8.6-10.3) mg/dl Magnesium 1.8 (1.7-2.4) mg/dl Total Bilirubin 0.5 (0.2-1.0) mg/dl AST 36 (13-39) U/L ALT 36 (7-52) U/L Alkaline Phosphatase 55 (34-104) U/L Troponin I High Sens 11.4 (0-14) pg/ml Total Protein 8.1 (6.0-8.3) gm/dl Albumin 4.7 (3.4-5.0) gm/dl Globulin 3.4 (2.5-4.0) gm/dl Albumin/Globulin Ratio 1.4 (0.9-2) Administered Medications Discontinued Medications Ioversol (Optiray 320 125ml) 115 ml IV ONCE ONE Stop: 01/23/23 20:14 Last Admin: 01/23/23 20:13 Dose: 115 ml Documented By: ANAM Imaging Data Radiologist's Impression: Head CT 01/23/23 19:38 CR Exam(s): CT HEAD Without Contrast EXAM: CT Head Without Intravenous Contrast CLINICAL HISTORY: Reason for exam: neuro deficit, acute stroke suspected. TECHNIQUE: Axial computed tomography images of the head/brain without intravenous contrast. CTDI is 43.86 mGy and DLP is 774.27 mGy-cm. Automated exposure control was utilized for the study. A dose lowering technique was utilized adhering to the principles of ALARA. COMPARISON: 08/19/2022. FINDINGS: Brain: Mild to moderate generalized brain atrophy. Focus of encephalomalacia involving the right parietal lobe, likely sequela of old infarct. Decrease attenuation within the deep right matter compatible with microangiopathic white matter disease. No hemorrhage. Ventricles: Unremarkable. No ventriculomegaly. Bones/joints: Unremarkable. No acute fracture. Soft tissues: Unremarkable. Sinuses: Unremarkable as visualized. No acute sinusitis. Mastoid air cells: Unremarkable as visualized. No mastoid effusion. IMPRESSION: Chronic changes as described. No acute intracranial hemorrhage or space-occupying lesion. Communications: Call Doctor Stroke Electronically signed by: Nimisha Santamaria MD 01/23/23 20:47 PM Head CTA 01/23/23 19:38 CR Exam(s): CTA HEAD With Contrast IV Amt: 115 ml optiray 320 EXAM: CT Angiography Head With Intravenous Contrast CLINICAL HISTORY: Reason for exam: neuro deficit, acute stroke suspected. TECHNIQUE: Axial computed tomographic angiography images of the head with intravenous contrast. CTDI is 22.84 mGy and DLP is 11.42 mGy-cm. Automated exposure control was utilized for the study. A dose lowering technique was utilized adhering to the principles of ALARA. MIP reconstructed images were created and reviewed. CONTRAST: Patient received 115 ml optiray 320 of IV contrast COMPARISON: None. FINDINGS: Right internal carotid artery: Mild calcified plaque along the cavernous portion of the right internal carotid artery with less than 50% diameter stenosis. No aneurysm. Right anterior cerebral artery: Unremarkable. No occlusion or significant stenosis. No aneurysm. Right middle cerebral artery: Unremarkable. No occlusion or significant stenosis. No aneurysm. Right posterior cerebral artery: Unremarkable. No occlusion or significant stenosis. No aneurysm. Right vertebral artery: Unremarkable as visualized. Left internal carotid artery: Mild calcified plaque along the cavernous portion of the left internal carotid artery with less than 50% diameter stenosis. No aneurysm. Left anterior cerebral artery: Unremarkable. No occlusion or significant stenosis. No aneurysm. Left middle cerebral artery: Unremarkable. No occlusion or significant stenosis. No aneurysm. Left posterior cerebral artery: Unremarkable. No occlusion or significant stenosis. No aneurysm. Left vertebral artery: Calcified atherosclerotic plaque involving the distal left vertebral artery in the intracranial portion with less than 50% diameter stenosis. Basilar artery: Unremarkable. No occlusion or significant stenosis. No aneurysm. IMPRESSION: No significant stenosis, occlusion or aneurysm involving the [place]. Communications: Call Doctor Stroke Electronically signed by: Nimisha Santamaria MD 01/23/23 20:55 PM Neck CTA 01/23/23 19:38 CR Exam(s): CTA NECK With Contrast IV Amt: 115 ml optiray 320 EXAM: CT Angiography Neck With Intravenous Contrast CLINICAL HISTORY: Reason for exam: neuro deficit, acute stroke suspected. TECHNIQUE: Routine carotid CT angiography protocol was performed with intravenous contrast. NASCET criteria using the distal ICAs for comparison were used for evaluation of stenoses. CTDI is 13.74 mGy and DLP is 519.37 mGy-cm. Automated exposure control was utilized for the study. A dose lowering technique was utilized adhering to the principles of ALARA. MIP reconstructed images were created and reviewed. CONTRAST: Patient received 115 ml optiray 320 of IV contrast COMPARISON: None. FINDINGS: VASCULATURE: Right common carotid artery: Unremarkable. No occlusion or significant stenosis. No dissection. Right internal carotid artery: Mild calcified plaque at the right carotid bulb. Mild calcified plaque at the origin and proximal right internal carotid artery with less than 50% diameter stenosis. No dissection. Right external carotid artery: Unremarkable. No occlusion. Right vertebral artery: Unremarkable. No occlusion or significant stenosis. No dissection. Left common carotid artery: Unremarkable. No occlusion or significant stenosis. No dissection. Left internal carotid artery: Mild calcified plaque at the left carotid bowel. Mild calcified plaque at the origin of the left internal carotid artery with less than 50% diameter stenosis. No dissection. Left external carotid artery: Unremarkable. No occlusion. Left vertebral artery: Unremarkable. No occlusion or significant stenosis. No dissection. Aorta: Mild atherosclerotic disease of aorta. NECK: Bones/joints: Unremarkable. No acute fracture. Soft tissues: Unremarkable. Thyroid: Heterogeneous nodule within the right thyroid lobe measuring 2.5 cm. Lung apices: Lung apices reveal minimal bullous changes. Mild fullness of the interstitial markings may indicate mild vascular congestion. CAROTID STENOSIS REFERENCE USING NASCET CRITERIA: % ICA stenosis = (1 - narrowest ICA diameter/diameter of distal cervical ICA) x 100. Mild - <50% stenosis. Moderate - 50-69% stenosis. Severe - 70-94% stenosis. Near occlusion - 95-99% stenosis. Occluded - 100% stenosis. IMPRESSION: 1. No significant stenosis, occlusion or dissection involving the bilateral carotid and vertebral arteries. 2. Heterogeneous and predominantly hypodense nodule within the right thyroid lobe measuring 2.5 cm, recommend follow-up with ultrasound and nonacute setting for further characterization. Communications: Call Doctor Stroke Electronically signed by: Nimisha Santamaria MD 01/23/23 20:56 PM Discharge Plan Visit Data Chief Complaint: Stroke/CVA Symptoms Stated Complaint: STROKE SYMPTOMS, STROKE IN AUGUST ED Provider: Michele Coronado Discharge Problem: Acute CVA (cerebrovascular accident) Forms Stand Alone Forms: My [facility] Referrals Referrals: Garret Perry MD [Primary Care Provider] -
--- NOTE | 2023-01-23 20:48 | CT Scan Report ---
Exam(s): CT HEAD Without Contrast EXAM: CT Head Without Intravenous Contrast CLINICAL HISTORY: Reason for exam: neuro deficit, acute stroke suspected. TECHNIQUE: Axial computed tomography images of the head/brain without intravenous contrast. CTDI is 43.86 mGy and DLP is 774.27 mGy-cm. Automated exposure control was utilized for the study. A dose lowering technique was utilized adhering to the principles of ALARA. COMPARISON: 08/19/2022. FINDINGS: Brain: Mild to moderate generalized brain atrophy. Focus of encephalomalacia involving the right parietal lobe, likely sequela of old infarct. Decrease attenuation within the deep right matter compatible with microangiopathic white matter disease. No hemorrhage. Ventricles: Unremarkable. No ventriculomegaly. Bones/joints: Unremarkable. No acute fracture. Soft tissues: Unremarkable. Sinuses: Unremarkable as visualized. No acute sinusitis. Mastoid air cells: Unremarkable as visualized. No mastoid effusion. IMPRESSION: Chronic changes as described. No acute intracranial hemorrhage or space-occupying lesion. Communications: Call Doctor Stroke Electronically signed by: Nimisha Santamaria MD 01/23/23 20:47 PM
--- NOTE | 2023-01-23 20:57 | CT Scan Report ---
Exam(s): CTA NECK With Contrast IV Amt: 115 ml optiray 320 EXAM: CT Angiography Neck With Intravenous Contrast CLINICAL HISTORY: Reason for exam: neuro deficit, acute stroke suspected. TECHNIQUE: Routine carotid CT angiography protocol was performed with intravenous contrast. NASCET criteria using the distal ICAs for comparison were used for evaluation of stenoses. CTDI is 13.74 mGy and DLP is 519.37 mGy-cm. Automated exposure control was utilized for the study. A dose lowering technique was utilized adhering to the principles of ALARA. MIP reconstructed images were created and reviewed. CONTRAST: Patient received 115 ml optiray 320 of IV contrast COMPARISON: None. FINDINGS: VASCULATURE: Right common carotid artery: Unremarkable. No occlusion or significant stenosis. No dissection. Right internal carotid artery: Mild calcified plaque at the right carotid bulb. Mild calcified plaque at the origin and proximal right internal carotid artery with less than 50% diameter stenosis. No dissection. Right external carotid artery: Unremarkable. No occlusion. Right vertebral artery: Unremarkable. No occlusion or significant stenosis. No dissection. Left common carotid artery: Unremarkable. No occlusion or significant stenosis. No dissection. Left internal carotid artery: Mild calcified plaque at the left carotid bowel. Mild calcified plaque at the origin of the left internal carotid artery with less than 50% diameter stenosis. No dissection. Left external carotid artery: Unremarkable. No occlusion. Left vertebral artery: Unremarkable. No occlusion or significant stenosis. No dissection. Aorta: Mild atherosclerotic disease of aorta. NECK: Bones/joints: Unremarkable. No acute fracture. Soft tissues: Unremarkable. Thyroid: Heterogeneous nodule within the right thyroid lobe measuring 2.5 cm. Lung apices: Lung apices reveal minimal bullous changes. Mild fullness of the interstitial markings may indicate mild vascular congestion. CAROTID STENOSIS REFERENCE USING NASCET CRITERIA: % ICA stenosis = (1 - narrowest ICA diameter/diameter of distal cervical ICA) x 100. Mild - <50% stenosis. Moderate - 50-69% stenosis. Severe - 70-94% stenosis. Near occlusion - 95-99% stenosis. Occluded - 100% stenosis. IMPRESSION: 1. No significant stenosis, occlusion or dissection involving the bilateral carotid and vertebral arteries. 2. Heterogeneous and predominantly hypodense nodule within the right thyroid lobe measuring 2.5 cm, recommend follow-up with ultrasound and nonacute setting for further characterization. Communications: Call Doctor Stroke Electronically signed by: Nimisha Santamaria MD 01/23/23:56 PM
--- NOTE | 2023-01-23 20:57 | CT Scan Report ---
Exam(s): CTA HEAD With Contrast IV Amt: 115 ml optiray 320 EXAM: CT Angiography Head With Intravenous Contrast CLINICAL HISTORY: Reason for exam: neuro deficit, acute stroke suspected. TECHNIQUE: Axial computed tomographic angiography images of the head with intravenous contrast. CTDI is 22.84 mGy and DLP is 11.42 mGy-cm. Automated exposure control was utilized for the study. A dose lowering technique was utilized adhering to the principles of ALARA. MIP reconstructed images were created and reviewed. CONTRAST: Patient received 115 ml optiray 320 of IV contrast COMPARISON: None. FINDINGS: Right internal carotid artery: Mild calcified plaque along the cavernous portion of the right internal carotid artery with less than 50% diameter stenosis. No aneurysm. Right anterior cerebral artery: Unremarkable. No occlusion or significant stenosis. No aneurysm. Right middle cerebral artery: Unremarkable. No occlusion or significant stenosis. No aneurysm. Right posterior cerebral artery: Unremarkable. No occlusion or significant stenosis. No aneurysm. Right vertebral artery: Unremarkable as visualized. Left internal carotid artery: Mild calcified plaque along the cavernous portion of the left internal carotid artery with less than 50% diameter stenosis. No aneurysm. Left anterior cerebral artery: Unremarkable. No occlusion or significant stenosis. No aneurysm. Left middle cerebral artery: Unremarkable. No occlusion or significant stenosis. No aneurysm. Left posterior cerebral artery: Unremarkable. No occlusion or significant stenosis. No aneurysm. Left vertebral artery: Calcified atherosclerotic plaque involving the distal left vertebral artery in the intracranial portion with less than 50% diameter stenosis. Basilar artery: Unremarkable. No occlusion or significant stenosis. No aneurysm. IMPRESSION: No significant stenosis, occlusion or aneurysm involving the [place] of [place]. Communications: Call Doctor Stroke Electronically signed by: Nimisha Santamaria MD 01/23/23 20:55 PM
[2023-01-23 21:33] LABS: INR 1.1 (0.9-1.1); Partial Thromboplastin Time 28.1 Seconds (21.0-31.0); Prothrombin Time 11.5 Seconds (9.0-12.0)
--- NOTE | 2023-01-23 23:19 | History & Physical Report ---
Date of Service January 23, 2023 Assessment & Plan (1) Acute CVA (cerebrovascular accident): Plan: 67-year-old female with past med history significant for type 2 diabetes, hyperlipidemia, asthma- COPD overlap syndrome, obstructive sleep apnea, persistent atrial fibrillation, nonischemic cardiomyopathy, history of CVA, mitral regurgitation, atherosclerosis of coronary artery, morbid obesity, migraine without aura, depression with anxiety presents with strokelike symptoms. Acute CVA Dysarthria Initial workup with CT scan of head and CTA head and neck unremarkable Will do full stroke workup with MRI scan, echo Speech evaluation a.m. Neurology evaluation a.m. Will hold Eliquis for now N.p.o. for now Gentle fluids Close monitoring till floor PT OT when stable MRI showing: Bradycardia History of atrial fibrillation Will hold amiodarone and metoprolol succinate Hold Eliquis for acute CVA and restart as per cardiology and neurology Follow echo Monitor on telemetry Cardiac consult in a.m. History of CVA Continue statin Holding Eliquis for now Diabetes On Mounjaro Hold metformin Insulin sliding scale Follow blood sugars and HbA1c levels History of asthma/COPD Continue home inhalers Hypertension Holding metoprolol succinate for bradycardia Continue losartan Permissive hypertension Close monitor Obstructive sleep apnea CPAP nightly Depression with anxiety On Wellbutrin and amitriptyline Hyperlipidemia On statin Follow lipid profile DVT prophylaxis SCDs for now Disposition Telemetry floor Full code Addendum: MRI showing: Scattered areas of small infarcts involving the insular region, left posterior centrum semiovale and left frontal and parietal cortex. Notified Neurology pricing consultant Ciro Limon and recommended to give Plavix until Eliquis is restarted. History of Present Illness Chief Complaint: Acute CVA Primary Care Provider: Garret Perry MD 67-year-old female with past med history significant for type 2 diabetes, hyperlipidemia, asthma- COPD overlap syndrome, obstructive sleep apnea, persistent atrial fibrillation, nonischemic cardiomyopathy, history of CVA, mitral regurgitation, atherosclerosis of coronary artery, morbid obesity, migraine without aura, depression with anxiety presents with strokelike symptoms. Patient drove to their daughter's house around 3 PM. Daughter noticed some dysarthria does not know when it exactly started, thought it might be resolved but it did not and by dinner time she was dropping things from her right hand and she was brought to the hospital and stroke alert was called. Initial workup is unremarkable. But patient still has some difficulty speaking. Could answer some questions. Daughter is in the room and answering most of the questions. Daughter is physician. Patient had a large right MCA stroke in August 2022. She has some weakness in the left side from that but as per daughter she remarkably improved.She ambulates with a cane. Today patient states she was able to walk to the bathroom in the ER. No recent fever or chills. No cough. No chest pain. Has some shortness of breath. No hematuria. No blood in the stools or black stools. Currently hemodynamically stable. Past medical history. As mentioned above Past surgical history. Appendectomy. Right breast biopsy. Colonoscopy. EGD with endoscopic ultrasound. Electrical electrophysiology evaluation for atrial fibrillation with pulmonary vein isolation. Laparoscopic abdomen with aspiration of ovarian cyst. Social history. Quit smoking 2014. Smoked half pack a day for 40 years. Alcohol rarely. No drug use. Family history. Mother had bipolar disorder. Hypertension. Sister had bipolar disorder. Breast cancer. Maternal grandfather had colon cancer. Uncle had diabetes. Allergies Allergy/AdvReac Type Severity Reaction Status Date / Time erythromycin base Allergy Severe Rash Verified 08/15/22 15:20 Sulfa (Sulfonamide Allergy Severe Rash Verified 08/15/22 15:20 Antibiotics) aspirin Allergy Intermediate Rash Verified 08/15/22 15:20 latex Allergy Intermediate RASH Verified 08/15/22 15:20 Home Medications Medication Instructions Recorded Confirmed Type amiodarone 200 mg tablet 200 mg PO BID 01/23/23 01/23/23 History apixaban 5 mg tablet (Eliquis) 5 mg PO BID 01/23/23 01/23/23 History atorvastatin 40 mg tablet 40 mg PO DAILY 01/23/23 01/23/23 History bupropion HCl 300 mg 24 hr tablet, 300 mg PO DAILY 01/23/23 01/23/23 History extended release fluticasone fur. 200 mcg-umeclid 1 inh inhalation DAILY 01/23/23 01/23/23 History 62.5 mcg-vilant 25 mcg inhalat.powder (Trelegy Ellipta) gabapentin 100 mg capsule 100 mg PO BID 01/23/23 01/23/23 History losartan 50 mg tablet 50 mg PO DAILY 01/23/23 01/23/23 History metformin 500 mg tablet 500 mg PO BID 01/23/23 01/23/23 History metoprolol succinate 100 mg 100 mg PO BID 01/23/23 01/23/23 History tablet,extended release 24 hr montelukast 10 mg tablet 10 mg PO DAILY 01/23/23 01/23/23 History nortriptyline 25 mg capsule 25 mg PO HS 01/23/23 01/23/23 History tirzepatide 2.5 mg/0.5 mL 5 mg subcut WK 01/23/23 01/23/23 History subcutaneous pen injector (Mounjaro) Past Med/Surg History Medical History ADD (attention deficit disorder) Asthma inhaler daily/nebulizer prn Atrial fibrillation follows with Dr. 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 Negative nuclear stress test 2017 and 01/2022 COPD (chronic obstructive pulmonary disease) Per records Depression H/O migraine Hepatitis C IN REMISSION HLD (hyperlipidemia) HTN (hypertension) Hyperthyroidism RADIOACTIVE IODINE TREATMENT Left ventricular systolic dysfunction (LVSD) History of dynamic ventricular outflow tract obstruction No significant LV outflow tract obstruction noted on resting ECHO 11/2021 per cardio records Mitral regurgitation Morbid obesity with BMI of 40.0-44.9, adult On anticoagulant therapy eliquis daily Prediabetes per pt reason for metformin Sleep apnea CPAP Surgical History History of esophagogastroduodenoscopy (EGD) with EUS @ [facility] 04/19/22 History of tooth extraction History of cardiac radiofrequency ablation x2--last 06/24/22 @ [facility] Hx of breast biopsy History of appendectomy History of colonoscopy History of cardioversion x4--last 07/24/22---follows with Dr. Romero also had 03/06/22, 11/2021 and 01/2018 S/P ovarian cystectomy Family History Grandfather Family hx of colon cancer Family/Other Family history of diabetes mellitus Other No family history of adverse response to anesthesia Social History Smoking Status: Former smoker Tobacco Type: Cigarettes Smoking End Date: n/a; Second Hand Exposure: No; Do You Dip or Chew Tobacco: No; Tobacco Cessation Education Requested by Patient: No Hx Alcohol Use: No Hx Substance Use: No Preferred Language: Kiswahili Communication Ability: Effective Assembly Line Leader Required: No Beliefs That Will Affect Care: None Current Living Situation: Alone Other Information That Helps Us Care for You: No Feels Safe at Home: Yes Safety Concerns: Feels Safe At This Time Assistive Devices: Cane and Glasses Review of Systems Review of Systems: Other Physical Exam Physical Exam: General- Not in distress. Head- atraumatic Eyes- PERRL. ENT- oropharynx clear Neck- supple, no JVD. Lungs- clear to auscultation, no wheezing or crackles. Heart- regular rhythm; no murmur, no gallop. Abdomen- normal bowel sounds, soft, nontender, no distension. Extremities- trace pretibial edema, no erythema seen. Neuro- alert, oriented ; PERRL, no facial palsy; dysarthria present ; motor 5/5 left extremities 3-4/5 in right extremities , mild pronator drift in right upper extremity, co ordination of movements normal. sensations intact. Skin- warm & dry Results & Data Results & Data Vital Signs (Past 12 Hours) Vital Signs Temp Pulse Pulse Resp BP BP Pulse Ox 01/23/23 23:00 56 L 23 151/70 H 93 01/23/23 22:34 52 L 26 H 167/84 H 95 01/23/23 22:00 56 L 16 158/94 H 94 01/23/23 21:30 48 L 19 179/107 H 95 01/23/23 21:28 47 L 20 160/105 H 97 01/23/23 21:27 51 L 20 160/105 H 97 01/23/23 21:00 48 L 22 181/100 H 94 01/23/23 20:32 55 L 18 167/80 H 94 01/23/23 20:30 57 L 16 167/80 H 95 01/23/23 20:00 57 L 25 H 95 01/23/23 19:59 189/91 H 01/23/23 19:59 57 L 26 H 94 01/23/23 19:41 50 L 23 93 01/23/23 19:40 50 L 01/23/23 19:32 36.6 C 54 L 18 205/96 H 96 O2 Del Method 01/23/23 23:00 01/23/23 22:34 01/23/23 22:00 01/23/23 21:30 01/23/23 21:28 Room Air 01/23/23 21:27 01/23/23 21:00 01/23/23 20:32 Room Air 01/23/23 20:30 01/23/23 20:00 01/23/23 19:59 01/23/23 19:59 01/23/23 19:41 01/23/23 19:40 01/23/23 19:32 Room Air Diagnostic Findings Laboratory Results WBC 9.47 K/ul (4.8-10.8) 01/23/23 19:47 RBC 4.62 M/uL (4.20-5.40) 01/23/23 19:47 Hgb 14.5 g/dl (12.0-16.0) 01/23/23 19:47 Hct 43.6 % (37.0-47.0) 01/23/23 19:47 MCV 94.4 fL (80.0-100.0) 01/23/23 19:47 MCH 31.4 pg (25.0-34.0) 01/23/23 19:47 MCHC 33.3 g/dL (32.0-36.0) 01/23/23 19:47 RDW Std Deviation 46.6 fL (36.4-46.3) H 01/23/23 19:47 RDW Coeff of Yeyo 13.5 % (11.5-14.5) 01/23/23 19:47 Plt Count 269 K/uL (130-400) 01/23/23 19:47 MPV 9.5 fL (9.4-12.4) 01/23/23 19:47 Immature Gran % (Auto) 0.4 % 01/23/23 19:47 Neut % (Auto) 74.5 % 01/23/23 19:47 Lymph % (Auto) 16.8 % 01/23/23 19:47 [place] % (Auto) 7.2 % 01/23/23 19:47 Eos % (Auto) 0.6 % 01/23/23 19:47 Baso % (Auto) 0.5 % 01/23/23 19:47 Neut # (Auto) 7.05 K/uL (1.40-6.50) H 01/23/23 19:47 Lymph # (Auto) 1.59 K/uL (1.20-3.40) 01/23/23 19:47 [place] # (Auto) 0.68 K/uL (0.11-0.59) H 01/23/23 19:47 Eos # (Auto) 0.06 K/uL (0.00-0.50) 01/23/23 19:47 Baso # (Auto) 0.05 K/uL (0.00-0.20) 01/23/23 19:47 Immature Gran # (Auto) 0.04 K/uL (0.01-0.20) 01/23/23 19:47 PT 11.5 Seconds (9.0-12.0) 01/23/23 20:51 INR 1.1 (0.9-1.1) 01/23/23 20:51 APTT 28.1 Seconds (21.0-31.0) 01/23/23 20:51 PTT Ratio 1.0 01/23/23 20:51 Sodium 133 mmol/L (136-145) L 01/23/23 19:47 Potassium 4.6 mmol/L (3.5-5.1) 01/23/23 19:47 Chloride 99 mmol/L (98-107) 01/23/23 19:47 Carbon Dioxide 23 mmol/L (21-32) 01/23/23 19:47 Anion Gap 11 (3-11) 01/23/23 19:47 BUN 20 mg/dl (6-23) 01/23/23 19:47 Creatinine 0.89 mg/dl (0.6-1.2) 01/23/23 19:47 Est Cr Clr Drug Dosing 74.2 ml/min 01/23/23 19:47 Est GFR ( Amer) 77.2 ml/min 01/23/23 19:47 Est GFR (Non-Af Amer) 66.6 ml/min 01/23/23 19:47 BUN/Creatinine Ratio 22.5 (10-20) H 01/23/23 19:47 Glucose 189 mg/dl (70-99(Fasting)) H 01/23/23 19:47 POC Glucose 176 mg/dl (70-99) H 01/23/23 19:44 Calcium 10.1 mg/dl (8.6-10.3) 01/23/23 19:47 Magnesium 1.8 mg/dl (1.7-2.4) 01/23/23 19:47 Total Bilirubin 0.5 mg/dl (0.2-1.0) 01/23/23 19:47 AST 36 U/L (13-39) 01/23/23 19:47 ALT 36 U/L (7-52) 01/23/23 19:47 Alkaline Phosphatase 55 U/L (34-104) 01/23/23 19:47 Troponin I High Sens 11.4 pg/ml (0-14) 01/23/23 19:47 Total Protein 8.1 gm/dl (6.0-8.3) 01/23/23 19:47 Albumin 4.7 gm/dl (3.4-5.0) 01/23/23 19:47 Globulin 3.4 gm/dl (2.5-4.0) 01/23/23 19:47 Albumin/Globulin Ratio 1.4 (0.9-2) 01/23/23 19:[address] 01/23/23 19:38 CR Exam(s): CT HEAD Without Contrast EXAM: CT Head Without Intravenous Contrast CLINICAL HISTORY: Reason for exam: neuro deficit, acute stroke suspected. TECHNIQUE: Axial computed tomography images of the head/brain without intravenous contrast. CTDI is 43.86 mGy and DLP is 774.27 mGy-cm. Automated exposure control was utilized for the study. A dose lowering technique was utilized adhering to the principles of ALARA. COMPARISON: 08/19/2022. FINDINGS: Brain: Mild to moderate generalized brain atrophy. Focus of encephalomalacia involving the right parietal lobe, likely sequela of old infarct. Decrease attenuation within the deep right matter compatible with microangiopathic white matter disease. No hemorrhage. Ventricles: Unremarkable. No ventriculomegaly. Bones/joints: Unremarkable. No acute fracture. Soft tissues: Unremarkable. Sinuses: Unremarkable as visualized. No acute sinusitis. Mastoid air cells: Unremarkable as visualized. No mastoid effusion. IMPRESSION: Chronic changes as described. No acute intracranial hemorrhage or space-occupying lesion. Communications: Call Doctor Stroke Electronically signed by: Nimisha Santamaria MD 01/23/23 20:47 PM Head CTA 01/23/23 19:38 CR Exam(s): CTA HEAD With Contrast IV Amt: 115 ml optiray 320 EXAM: CT Angiography Head With Intravenous Contrast CLINICAL HISTORY: Reason for exam: neuro deficit, acute stroke suspected. TECHNIQUE: Axial computed tomographic angiography images of the head with intravenous contrast. CTDI is 22.84 mGy and DLP is 11.42 mGy-cm. Automated exposure control was utilized for the study. A dose lowering technique was utilized adhering to the principles of ALARA. MIP reconstructed images were created and reviewed. CONTRAST: Patient received 115 ml optiray 320 of IV contrast COMPARISON: None. FINDINGS: Right internal carotid artery: Mild calcified plaque along the cavernous portion of the right internal carotid artery with less than 50% diameter stenosis. No aneurysm. Right anterior cerebral artery: Unremarkable. No occlusion or significant stenosis. No aneurysm. Right middle cerebral artery: Unremarkable. No occlusion or significant stenosis. No aneurysm. Right posterior cerebral artery: Unremarkable. No occlusion or significant stenosis. No aneurysm. Right vertebral artery: Unremarkable as visualized. Left internal carotid artery: Mild calcified plaque along the cavernous portion of the left internal carotid artery with less than 50% diameter stenosis. No aneurysm. Left anterior cerebral artery: Unremarkable. No occlusion or significant stenosis. No aneurysm. Left middle cerebral artery: Unremarkable. No occlusion or significant stenosis. No aneurysm. Left posterior cerebral artery: Unremarkable. No occlusion or significant stenosis. No aneurysm. Left vertebral artery: Calcified atherosclerotic plaque involving the distal left vertebral artery in the intracranial portion with less than 50% diameter stenosis. Basilar artery: Unremarkable. No occlusion or significant stenosis. No aneurysm. IMPRESSION: No significant stenosis, occlusion or aneurysm involving the [place] of [place]. Communications: Call Doctor Stroke Electronically signed by: Nimisha Santamaria MD 01/23/23 20:55 PM Neck CTA 01/23/23 19:38 CR Exam(s): CTA NECK With Contrast IV Amt: 115 ml optiray 320 EXAM: CT Angiography Neck With Intravenous Contrast CLINICAL HISTORY: Reason for exam: neuro deficit, acute stroke suspected. TECHNIQUE: Routine carotid CT angiography protocol was performed with intravenous contrast. NASCET criteria using the distal ICAs for comparison were used for evaluation of stenoses. CTDI is 13.74 mGy and DLP is 519.37 mGy-cm. Automated exposure control was utilized for the study. A dose lowering technique was utilized adhering to the principles of ALARA. MIP reconstructed images were created and reviewed. CONTRAST: Patient received 115 ml optiray 320 of IV contrast COMPARISON: None. FINDINGS: VASCULATURE: Right common carotid artery: Unremarkable. No occlusion or significant stenosis. No dissection. Right internal carotid artery: Mild calcified plaque at the right carotid bulb. Mild calcified plaque at the origin and proximal right internal carotid artery with less than 50% diameter stenosis. No dissection. Right external carotid artery: Unremarkable. No occlusion. Right vertebral artery: Unremarkable. No occlusion or significant stenosis. No dissection. Left common carotid artery: Unremarkable. No occlusion or significant stenosis. No dissection. Left internal carotid artery: Mild calcified plaque at the left carotid bowel. Mild calcified plaque at the origin of the left internal carotid artery with less than 50% diameter stenosis. No dissection. Left external carotid artery: Unremarkable. No occlusion. Left vertebral artery: Unremarkable. No occlusion or significant stenosis. No dissection. Aorta: Mild atherosclerotic disease of aorta. NECK: Bones/joints: Unremarkable. No acute fracture. Soft tissues: Unremarkable. Thyroid: Heterogeneous nodule within the right thyroid lobe measuring 2.5 cm. Lung apices: Lung apices reveal minimal bullous changes. Mild fullness of the interstitial markings may indicate mild vascular congestion. CAROTID STENOSIS REFERENCE USING NASCET CRITERIA: % ICA stenosis = (1 - narrowest ICA diameter/diameter of distal cervical ICA) x 100. Mild - <50% stenosis. Moderate - 50-69% stenosis. Severe - 70-94% stenosis. Near occlusion - 95-99% stenosis. Occluded - 100% stenosis. IMPRESSION: 1. No significant stenosis, occlusion or dissection involving the bilateral carotid and vertebral arteries. 2. Heterogeneous and predominantly hypodense nodule within the right thyroid lobe measuring 2.5 cm, recommend follow-up with ultrasound and nonacute setting for further characterization. Communications: Call Doctor Stroke Electronically signed by: Nimisha Santamaria MD 01/23/23 20:56 PM ECG Additional Comments: ECG. Sinus bradycardia with sinus arrhythmia rate of 54. Nonspecific T wave abnormalities. Code Status & VTE Plan VTE Prophylaxis Plan VTE Prophylaxis will be ordered: Yes
[2023-01-24] MEDS ORDERED: DEXTROSE 50% 50 ML SYRINGE IV PRN (00:13)
[2023-01-24] MEDS ORDERED: GLUCOSE 10 TAB/TUBE PO PRN (00:13)
[2023-01-24] MEDS ORDERED: GLUCOSE 40% GEL 15 GM TUBE PO PRN (00:13)
[2023-01-24] MEDS ORDERED: GLUCAGON FOR INJ 1 MG VIAL SQ PRN (00:13)
[2023-01-24] MEDS ORDERED: PHARMACIST DISCHARGE MED REC CONSULT PRN (00:13)
[2023-01-24] MEDS ORDERED: CARBOHYDRATES FOR HYPOGLYCEMIA PO PRN (00:13)
[2023-01-24] MEDS ORDERED: NITROGLYCERIN SL 0.4 MG/TAB TAB SL PRN (00:13)
[2023-01-24] MEDS ORDERED: GADOBUTROL 65ML VIAL IV ONE (02:02)
[2023-01-24] MEDS: SODIUM CHLORIDE 0.9% 1,000 ML IV SCH ×2 (02:12→12:27)
--- NOTE | 2023-01-24 03:06 | Magnetic Resonance Report ---
Exam(s): MRI HEAD W/WO Contrast EXAM: MR Head Without and With Intravenous Contrast CLINICAL HISTORY: Reason for exam: acute cva. TECHNIQUE: Magnetic resonance images of the head/brain without and with intravenous contrast in multiple planes. CONTRAST: Contrast must be dictated COMPARISON: 08/15/2022. FINDINGS: Brain: The small focus of restricted diffusion along the insular region consistent with acute infarct. Additional small areas with restricted diffusion within the left posterior centrum semiovale and cortex of the left frontal and parietal lobe consistent with small acute infarcts. There is bilateral periventricular T2 hyperintensity compatible with microangiopathic white matter disease. No hemorrhage. Ventricles: Unremarkable. No ventriculomegaly. Bones/joints: Unremarkable. No acute fracture. Soft tissues: Unremarkable. There is no abnormal enhancement to suggest intracranial lesion. Sinuses: Unremarkable as visualized. No acute sinusitis. Mastoid air cells: Unremarkable as visualized. No mastoid effusion. Orbits: Unremarkable as visualized. IMPRESSION: 1. Scattered areas of small infarcts involving the insular region, left posterior centrum semiovale and left frontal and parietal cortex. 2. No intracranial hemorrhage. 3. Underlying microangiopathic white matter disease. Communications: Call Doctor Other Electronically signed by: Nimisha Santamaria MD 01/24/23 03:05 AM
[2023-01-24] MEDS ORDERED: CLOPIDOGREL BISULFATE 75 MG TAB PO ONE (03:39)
[2023-01-24] MEDS ORDERED: ENALAPRILAT 1.25 MG in DEXTROSE 5% 25 ML IV PRN (03:44)
--- NOTE | 2023-01-24 05:25 | Communication Note ---
Date of Service: January 24, [address] Frederick ahn re: Ms. Hernandez, 67 F with afib on Eliquis who presented with dysarthria. CT/CTA in ED okay. MRI shows a relatively small L MCA infarct without hemorrhage. Advised starting Plavix 75mg daily short-term. Will defer to daytime neurologist but anticipate she'll be able to resume Eliquis within the next few days, at which point Plavix can be discontinued.
[2023-01-24] MEDS ORDERED: CLOPIDOGREL BISULFATE 75 MG TAB PO SCH ×3 (06:00→09:00)
[2023-01-24] MEDS: INSULIN ASPART PER UNIT CHARGE SC SCH ×4 (06:11→19:56)
[2023-01-24 07:32] LABS: Basophils # (auto) 0.02 K/uL (0.00-0.20); Basophils % (auto) 0.3 %; Eosinophils # (auto) 0.04 K/uL (0.00-0.50); Eosinophils % (auto) 0.7 %; Hematocrit (blood only) 41.2 % (37.0-47.0); Hemoglobin 13.8 g/dl (12.0-16.0); Immature Granulocytes # (auto) 0.02 K/uL (0.01-0.20); Immature Granulocytes % (auto) 0.3 %; Lymphocytes # (auto) 1.17 K/uL (1.20-3.40); Lymphocytes % (auto) 19.7 %; Mean Corpuscular Hemoglobin 31.3 pg (25.0-34.0); Mean Corpuscular Hgb Conc 33.5 g/dL (32.0-36.0); Mean Corpuscular Volume 93.4 fL (80.0-100.0); Mean Platelet Volume 9.8 fL (9.4-12.4); Monocytes # (auto) 0.54 K/uL (0.11-0.59); Monocytes % (auto) 9.1 %; Neutrophils # (auto) 4.15 K/uL (1.40-6.50); Neutrophils % (auto) 69.9 %; Platelet Count 237 K/uL (130-400); RDW Coefficient of Variation 13.5 % (11.5-14.5); RDW Standard Deviation 46.5 fL (36.4-46.3); Red Blood Count 4.41 M/uL (4.20-5.40); White Blood Count 5.94 K/ul (4.8-10.8)
--- NOTE | 2023-01-24 07:35 | Hospitalist Progress Note ---
Date of Service January 24, 2023 Assessment & Plan (1) Acute CVA (cerebrovascular accident): Plan: 67 yo F with type 2 diabetes, hyperlipidemia, asthma- COPD overlap syndrome, obstructive sleep apnea, persistent atrial fibrillation, nonischemic cardiomyopathy, history of CVA, mitral regurgitation, atherosclerosis of coronary artery, morbid obesity, migraine without aura, depression with anxiety presents with strokelike symptoms. Acute CVA Dysarthria Initial workup with CT scan of head and CTA head and neck unremarkable MRI brain - IMPRESSION: 1. Scattered areas of small infarcts involving the insular region, left posterior centrum semiovale and left frontal and parietal cortex. 2. No intracranial hemorrhage. 3. Underlying microangiopathic white matter disease. Echo obtained Speech evaluation Neurology consulted - ok to stop plavix and do heparin bridge to coumadin Cardiology consulted - pt w/ pAfib, hx of CVAs on eliquis - plan to transition to coumadin w/ heparin bridge Stop Eliquis N.p.o. for now PT OT when stable Bradycardia History of atrial fibrillation - cont. amiodarone and metoprolol succinate - discussed w/ cardiology echo obtained and reviewed Monitor on telemetry History of CVA Continue statin Hold Eliquis transition to coumadin, as above Diabetes On Mounjaro Hold metformin Insulin sliding scale Follow blood sugars and HbA1c levels History of asthma/COPD Continue home inhalers Hypertension - cont. metoprolol succinate Continue losartan Permissive hypertension Close monitor Obstructive sleep apnea CPAP nightly Depression with anxiety On Wellbutrin and amitriptyline Hyperlipidemia On statin Follow lipid profile DVT prophylaxis SCDs for now Disposition Telemetry floor Full code Admission and Anticipated Discharge Date Admission Date: January 23, 2023 Subjective Pt seen in follow up of CVA Currently laying in bed in NAD Denies any headache, able to move extremities. Speech improving, able to answer simple questions appropriately denies any fever, chills chest pain shortness of breath Discussed in detail w / cardiology (and then w/ neurology) as pt w/ hx of CVA, on eliquis, plan to transition to warfarin. Plan to start heparin bridge. Can stop plavix. Review of Systems Review of Systems: All systems reviewed & are unremarkable except as noted in Subjective Physical Exam Physical Exam: General- elderly obese F in NAD Head- atraumatic Eyes- PERRL. ENT- oropharynx clear Neck- supple, no JVD. Lungs- clear to auscultation, no wheezing or crackles. Heart- regular rhythm; no murmur, no gallop. Abdomen- normal bowel sounds, soft, nontender, no distension. Extremities- trace pretibial edema, no erythema seen. Neuro- alert, oriented ; PERRL, no facial palsy; dysarthria present ; moves extremities, answers simple questions appropriately Skin- warm & dry Results & Data Results & Data Vital Signs (Past 12 Hours) Vital Signs Temp Pulse Pulse Resp BP BP Pulse Ox 01/24/23 04:45 36.6 C 57 L 20 173/83 H 94 01/24/23 03:01 58 L 24 96 01/24/23 00:19 36.6 C 58 L 20 182/82 H 97 01/24/23 00:08 62 01/23/23 23:00 56 L 23 151/70 H 93 01/23/23 22:34 52 L 26 H 167/84 H 95 01/23/23 22:00 56 L 16 158/94 H 94 01/23/23 21:30 48 L 19 179/107 H 95 01/23/23 21:28 47 L 20 160/105 H 97 01/23/23 21:27 51 L 20 160/105 H 97 01/23/23 21:00 48 L 22 181/100 H 94 01/23/23 20:32 55 L 18 167/80 H 94 01/23/23 20:30 57 L 16 167/80 H 95 01/23/23 20:00 57 L 25 H 95 01/23/23 19:59 189/91 H 01/23/23 19:59 57 L 26 H 94 01/23/23 19:41 50 L 23 93 01/23/23 19:40 50 L O2 Del Method 01/24/23 04:45 Room Air, CPAP 01/24/23 03:01 01/24/23 00:19 Room Air 01/24/23 00:08 01/23/23 23:00 01/23/23 22:34 01/23/23 22:00 01/23/23 21:30 01/23/23 21:28 Room Air 01/23/23 21:27 01/23/23 21:00 01/23/23 20:32 Room Air 01/23/23 20:30 01/23/23 20:00 01/23/23 19:59 01/23/23 19:59 01/23/23 19:41 01/23/23 19:40 Laboratory Results 01/24/23 01/24/23 01/23/23 Range/Units 06:35 05:49 20:51 WBC 5.94 (4.8-10.8) K/ul RBC 4.41 (4.20-5.40) M/uL Hgb 13.8 (12.0-16.0) g/dl Hct 41.2 (37.0-47.0) % MCV 93.4 (80.0-100.0) fL MCH 31.3 (25.0-34.0) pg MCHC 33.5 (32.0-36.0) g/dL RDW Std Deviation 46.5 H (36.4-46.3) fL RDW Coeff of Yeyo 13.5 (11.5-14.5) % Plt Count 237 (130-400) K/uL MPV 9.8 (9.4-12.4) fL Immature Gran % (Auto) 0.3 % Neut % (Auto) 69.9 % Lymph % (Auto) 19.7 % Lasalle % (Auto) 9.1 % Eos % (Auto) 0.7 % Baso % (Auto) 0.3 % Neut # (Auto) 4.15 (1.40-6.50) K/uL Lymph # (Auto) 1.17 L (1.20-3.40) K/uL [place]alle # (Auto) 0.54 (0.11-0.59) K/uL Eos # (Auto) 0.04 (0.00-0.50) K/uL Baso # (Auto) 0.02 (0.00-0.20) K/uL Immature Gran # (Auto) 0.02 (0.01-0.20) K/uL PT 11.5 INR 1.1 APTT 28.1 PTT Ratio 1.0 Sodium Pending (136-145) mmol/L Potassium Pending (3.5-5.1) mmol/L Chloride Pending (98-107) mmol/L Carbon Dioxide Pending (21-32) mmol/L Anion Gap Pending (3-11) BUN Pending (6-23) mg/dl Creatinine Pending (0.6-1.2) mg/dl Est Cr Clr Drug Dosing Pending ml/min Est GFR ( Amer) Pending ml/min Est GFR (Non-Af Amer) Pending ml/min BUN/Creatinine Ratio Pending (10-20) Glucose Pending (70-99(Fasting)) mg/dl POC Glucose 97 (70-99) mg/dl Estimat Average Glucose Pending Hemoglobin A1c Pending Calcium Pending (8.6-10.3) mg/dl Magnesium (1.7-2.4) mg/dl Total Bilirubin (0.2-1.0) mg/dl AST (13-39) U/L ALT (7-52) U/L Alkaline Phosphatase (34-104) U/L Troponin I High Sens (0-14) pg/ml Total Protein (6.0-8.3) gm/dl Albumin (3.4-5.0) gm/dl Globulin (2.5-4.0) gm/dl Albumin/Globulin Ratio (0.9-2) Triglycerides Pending Cholesterol Pending LDL Cholesterol, Calc Pending VLDL Cholesterol, Calc Pending HDL Cholesterol Pending Cholesterol/HDL Ratio Pending 01/23/23 01/23/23 Range/Units 19:47 19:44 WBC 9.47 (4.8-10.8) K/ul RBC 4.62 (4.20-5.40) M/uL Hgb 14.5 (12.0-16.0) g/dl Hct 43.6 (37.0-47.0) % MCV 94.4 (80.0-100.0) fL MCH 31.4 (25.0-34.0) pg MCHC 33.3 (32.0-36.0) g/dL RDW Std Deviation 46.6 H (36.4-46.3) fL RDW Coeff of Yeyo 13.5 (11.5-14.5) % Plt Count 269 (130-400) K/uL MPV 9.5 (9.4-12.4) fL Immature Gran % (Auto) 0.4 % Neut % (Auto) 74.5 % Lymph % (Auto) 16.8 % Lasalle % (Auto) 7.2 % Eos % (Auto) 0.6 % Baso % (Auto) 0.5 % Neut # (Auto) 7.05 H (1.40-6.50) K/uL Lymph # (Auto) 1.59 (1.20-3.40) K/uL Lasalle # (Auto) 0.68 H (0.11-0.59) K/uL Eos # (Auto) 0.06 (0.00-0.50) K/uL Baso # (Auto) 0.05 (0.00-0.20) K/uL Immature Gran # (Auto) 0.04 (0.01-0.20) K/uL PT Cancelled INR Cancelled APTT Cancelled PTT Ratio Cancelled Sodium 133 L (136-145) mmol/L Potassium 4.6 (3.5-5.1) mmol/L Chloride 99 (98-107) mmol/L Carbon Dioxide 23 (21-32) mmol/L Anion Gap 11 (3-11) BUN 20 (6-23) mg/dl Creatinine 0.89 (0.6-1.2) mg/dl Est Cr Clr Drug Dosing 74.2 ml/min Est GFR ( Amer) 77.2 ml/min Est GFR (Non-Af Amer) 66.6 ml/min BUN/Creatinine Ratio 22.5 H (10-20) Glucose 189 H (70-99(Fasting)) mg/dl POC Glucose 176 H (70-99) mg/dl Estimat Average Glucose Hemoglobin A1c Calcium 10.1 (8.6-10.3) mg/dl Magnesium 1.8 (1.7-2.4) mg/dl Total Bilirubin 0.5 (0.2-1.0) mg/dl AST 36 (13-39) U/L ALT 36 (7-52) U/L Alkaline Phosphatase 55 (34-104) U/L Troponin I High Sens 11.4 (0-14) pg/ml Total Protein 8.1 (6.0-8.3) gm/dl Albumin 4.7 (3.4-5.0) gm/dl Globulin 3.4 (2.5-4.0) gm/dl Albumin/Globulin Ratio 1.4 (0.9-2) Triglycerides Cholesterol LDL Cholesterol, Calc VLDL Cholesterol, Calc HDL Cholesterol Cholesterol/HDL Ratio Medications Administered Current Inpatient Medications Atorvastatin Calcium (Atorvastatin 40 Mg Tab) 40 mg PO DAILY LYLY Stop: 02/23/23 08:59 Bupropion HCl (Bupropion Xl 300 Mg Tabcr) 300 mg PO DAILY LYLY Stop: 02/23/23 08:59 Clopidogrel Bisulfate (Clopidogrel Bisulfate 75 Mg Tab) 75 mg PO DAILY LYLY Stop: 02/23/23 05:59 Last Admin: 01/24/23 07:35 Dose: 75 mg Dextrose (Dextrose 50% 50 Ml Syringe) 25 - 50 ml IV UD PRN; Protocol PRN Reason: Hypoglycemia Protocol Stop: 02/23/23 00:12 Fluticasone Furoate (Fluticasone Furoate 200mcg 14 Puffs/Inhaler) 1 puffs INH DAILY LYLY Stop: 02/23/23 08:59 Gabapentin (Gabapentin 100 Mg Cap) 100 mg PO BID LYLY Stop: 02/23/23 08:59 Glucagon (Glucagon For Inj 1 Mg Vial) 1 mg SQ UD PRN; Protocol PRN Reason: Hypoglycemia Protocol Stop: 02/23/23 00:12 Glucose (Glucose 10 Tab/Tube) 4 - 8 tab PO UD PRN; Protocol PRN Reason: Hypoglycemia Treatment Stop: 02/23/23 00:12 Glucose (Glucose 40% Gel 15 Gm Tube) 15 - 30 gm PO UD PRN; Protocol PRN Reason: Hypoglycemia Protocol Stop: 02/23/23 00:12 Sodium Chloride (Nss) 1,000 mls @ 100 mls/hr IV .Q10H LYLY Stop: 01/24/23 20:12 Last Admin: 01/24/23 02:12 Dose: 100 mls/hr Enalaprilat 1.25 mg/ Dextrose 26 mls @ 100 mls/hr IV Q6H PRN PRN Reason: Hypertension Stop: 02/23/23 03:44 Insulin Aspart (Insulin Aspart Per Unit Charge) 0 units SC Q6 LYLY Stop: 02/23/23 05:59 Last Admin: 01/24/23 06:11 Dose: Not Given Losartan Potassium (Losartan Potassium 50 Mg Tab) 50 mg PO DAILY [facility] Stop: 02/23/23 08:59 Miscellaneous (Carbohydrates For Hypoglycemia ) 15 - 30 gm PO UD PRN PRN Reason: Hypoglycemia Protocol Stop: 02/23/23 00:12 Miscellaneous Information (Pharmacist Discharge Med Rec Consult) 1 each N/A UD PRN PRN Reason: Consult Stop: 02/23/23 00:12 Montelukast Sodium (Montelukast Sodium 10 Mg Tablet) 10 mg PO DAILY LYLY Stop: 02/23/23 08:59 Nitroglycerin (Nitroglycerin Sl 0.4 Mg/Tab Tab) 0.4 mg SL Q5M PRN PRN Reason: Chest Pain Stop: 02/23/23 00:12 Nortriptyline HCl (Nortriptyline Hcl 25 Mg Cap) 25 mg PO HS LYLY Stop: 02/23/23 20:59 Umeclidinium/Vilanterol (Umeclidinium/Vilanterol 62.5/25mcg 7 Puffs/Inhaler) 1 puffs INH DAILY LYLY Stop: 02/23/23 08:59 Zinc Acetate/Diphenhydramine (Diphenhydramine 2%/Zinc 0.1% Cream 28.4gm Tube) 1 appln EXT BID PRN PRN Reason: Itching Stop: 02/23/23 05:55
[2023-01-24] MEDS: diphenhydrAMINE 2%/ZINC 0.1% CREAM 28.4GM TUBE EXT PRN ×2 (07:36→20:02)
[2023-01-24] MEDS: LOSARTAN POTASSIUM 50 MG TAB PO SCH (07:37)
[2023-01-24] MEDS: MONTELUKAST SODIUM 10 MG TABLET PO SCH (07:38)
[2023-01-24] MEDS: buPROPion XL 300 MG TABCR PO SCH (07:38)
[2023-01-24] MEDS: GABAPENTIN 100 MG CAP PO SCH ×2 (07:38→20:00)
[2023-01-24 07:43] LABS: Estimated Average Glucose 128 mg/dl; Hemoglobin A1C 6.1 % (4.5-5.6)
[2023-01-24 07:51] LABS: Calcium 9.5 mg/dl (8.6-10.3); Chol HDL Ratio 2.6 (0-5); Creatinine Clr Calc Pharmacy 88.8 ml/min; Est GFR (African American) 96.5 ml/min; Est GFR (Non-African American) 83.2 ml/min
--- NOTE | 2023-01-24 08:03 | Cardiology Consultation ---
Date of Consultation January 24, 2023 Assessment & Plan (1) Paroxysmal atrial fibrillation: (2) Acute CVA (cerebrovascular accident): Plan IMPRESSION: Medically complex 67-year-old female with past medical history of difficult to control paroxysmal atrial fibrillation undergoing multiple cardioversions and 2 PVI's. Most recent cardioversion in August 2022 with successful conversion to sinus rhythm however cardioversion was complicated by a a large right-sided MCA territory infarct. Represented to [facility] emergency department with a new left MCA territory infarct yesterday, 01/23. Plavix started, Eliquis was held. Neurology consulted. Mild bradycardia noted on telemetry with rates in the 50s. Amiodarone and metoprolol held. PLAN: PAF/CVA: Maintaining normal sinus rhythm on telemetry--Restart amiodarone 200 mg twice daily. Will give a one-time dose dose of metoprolol tartrate 25 mg. Want to avoid recurrent PAF. Plavix started 01/23/2023. Eliquis held. Will need to consider transitioning to Coumadin. PTT/INR ordered this morning in anticipation for possible IV heparin bridge. Appreciate neurology consultation. Hypertension: BP hypertensive-- allowing for permissive hypertension until evaluated by neurology. Currently maintained on Losartan 50 mg daily-- continue Case discussed with Dr. Romero-- will follow. I spent a total of 45 minutes on the date of service in preparation, delivery, and documentation of the care provided to this patient, excluding any time spent in the performance of separately billed service. Supervising Physician Co-Signing Physician Notes Supervising Physician Attestation: I have personally performed a history and physical examination on the patient. I agree with the physician showroom sales assistant's findings and plan as documented with the following additions. 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 Patient with noted dysarthria. Telemetry reveals sinus bradycardia in the 50s. Stroke event in August, took place shortly after outpatient direct current cardioversion, with patient stating she had been compliant with Eliquis with no missed dosed then, or recently. Exam: General: awake and oriented. No acute distress CV: Regular, no murmurs, no edema Neuro: no focal weakness, dysarthria noted Data: EKG 01/24/24: SB at 54 bpm, first degree AVB, QTc 487 ms -CTA neck revealed les than 50% carotid stenosis bilaterally. Assessment : Recurrent ischemic stroke, MRI brain reveals small infarcts involving the insular region, left posterior centrum semiovale and left frontal and parietal cortex Stroke event in August, that took place shortly after electrical cardioversion was in the right MCA territory History of highly symptomatic paroxysmal and persistent atrial fibrillation, sinus bradycardia observed at present Plan: -Rhythm control: resume amiodarone 200 mg PO BID which was held on admission due to concerns of sinus bradycardia in the 50s. Resume metoprolol succinate 100 mg BID. -with regards to stroke prevention. Has had two events despite adherence to Eliquis. MRI suggests embolic etiology. Options include adding antiplatelet therapy or an alternative anticoagulant. At present I am inclined to stop Eliquis. Her most recent dose was in the am of 01/24/24. Start heparin infusion, weight based without bolus as a bridge during initiation of coumadin, goal INR 2-3. -Continue clopidogrel for now, pending Neurology input. -Continue [employer] therapy with losartan 50 mg daily. -LDL =105 mg/dl, increase atorvastatin to 80 mg daily. Orders entered: PT / INR, PTT this am Heparin wt based, no loading bolus Coumadin 3 mg x 1 now, then 2.5 mg daily (low dose to start given amiodarone) Daily INR in am x 5 Amiodarone 200 mg BID (home dose) Metoprolol tartrate 25 mg x 1 then metoprolol succinate 50 mg today at noon Then resume metoprolol succinate 100 mg BID, hold for HR < 50, SBP < 100 mm Hg. Case discussed with Dr Calderon for purpose of coordination of care. Case discussed with patient's daughter, Enid Patel . I spent a total of 25 minutes on the date of service in preparation, delivery, and documentation of the care provided to this patient, excluding any time spent in the performance of separately billed services. Rodo Romero DO History of Present Illness Reason for Consultation: Bradycardia/PAF/CVA Requesting Physician: Ban hospitalist Attending Physician: Tutu Calderon MD History of Present Illness Medically complex 67-year-old female who presented to [facility] emergency department yesterday due to strokelike symptoms. Symptoms include dysarthria and right hand weakness. Eliquis held. Neuro workup included CT head and CTA of the head and neck which was unremarkable. MRI revealed a small left MCA infarct without hemorrhage, started on Plavix. Neurology consulted. Heart rates were bradycardic in the 50s--Amiodarone and metoprolol succinate held. Upon entrance into the room patient resting in bed. No acute distress. Notes ongoing difficulty with word searching. Right arm/hand weakness improving. No chest pain or shortness of breath. No palpitations. No recent known reoccurrence of PAF. No current lightheadedness, but notes at home her smart watch has had readings in the 50s and she feels lightheaded when she is up moving, not at rest. No syncope. No orthopnea, PND, or lower extremity edema. Tele: SB 50s, no PAF Primary outpatient retail sales vitamin consultant: Dr. Romero. Also follows with ASYA Kemp. Past Medical History: 1.Hypertension 2.Hyperdynamic LV systolic function with outflow tract obstruction 3.Paroxysmal, now persistent atrial fibrillation, diagnosed 07/2017, [id number] VASc score of 4, on eliquis a.Status post multiple cardioversions 2017, November, b.Recurrent atrial fibrillation, status post pulmonary vein isolation radiofrequency catheter ablation 03/[address] Herson jorgensen.Recurrent AFIB, s/p repeat PVI and sotalol load 06/24/[address] Yohannes floyd.Recurrent AFIB s/p DCCV 08/14/2022, complicated by acute right MCA CVA 08/15/2022 4.History of tachycardic versus idiopathic cardiomyopathy, LVEF 45%, 2017, improved LVEF to 55% 11/2020 a.Negative nuclear stress 08/26/2017, January, 5.Type 2 diabetes 6.Dyslipidemia, LDL goal below 100 7.Severe persistent asthma/COPD, following a pulmonary 8.LILI 9.Elevated BMI 10.Former tobacco use Allergies Allergy/AdvReac Type Severity Reaction Status Date / Time erythromycin base Allergy Severe Rash Verified 08/15/22 15:20 Sulfa (Sulfonamide Allergy Severe Rash Verified 08/15/22 15:20 Antibiotics) aspirin Allergy Intermediate Rash Verified 08/15/22 15:20 latex Allergy Intermediate RASH Verified 08/15/22 15:20 Home Medications Medication Instructions Recorded Confirmed Type amiodarone 200 mg tablet 200 mg PO BID 01/23/23 01/23/23 History apixaban 5 mg tablet (Eliquis) 5 mg PO BID 01/23/23 01/23/23 History atorvastatin 40 mg tablet 40 mg PO DAILY 01/23/23 01/23/23 History bupropion HCl 300 mg 24 hr tablet, 300 mg PO DAILY 01/23/23 01/23/23 History extended release fluticasone fur. 200 mcg-umeclid 1 inh inhalation DAILY 01/23/23 01/23/23 History 62.5 mcg-vilant 25 mcg inhalat.powder (Trelegy Ellipta) gabapentin 100 mg capsule 100 mg PO BID 01/23/23 01/23/23 History losartan 50 mg tablet 50 mg PO DAILY 01/23/23 01/23/23 History metformin 500 mg tablet 500 mg PO BID 01/23/23 01/23/23 History metoprolol succinate 100 mg 100 mg PO BID 01/23/23 01/23/23 History tablet,extended release 24 hr montelukast 10 mg tablet 10 mg PO DAILY 01/23/23 01/23/23 History nortriptyline 25 mg capsule 25 mg PO HS 01/23/23 01/23/23 History tirzepatide 2.5 mg/0.5 mL 5 mg subcut WK 01/23/23 01/23/23 History subcutaneous pen injector (Mounjaro) Patient History Medical History ADD (attention deficit disorder) Asthma inhaler daily/nebulizer prn Atrial fibrillation follows with Dr. 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 Negative nuclear stress test 2017 and 01/2022 COPD (chronic obstructive pulmonary disease) Per records Depression H/O migraine Hepatitis C IN REMISSION HLD (hyperlipidemia) HTN (hypertension) Hyperthyroidism RADIOACTIVE IODINE TREATMENT Left ventricular systolic dysfunction (LVSD) History of dynamic ventricular outflow tract obstruction No significant LV outflow tract obstruction noted on resting ECHO 11/2021 per cardio records Mitral regurgitation Morbid obesity with BMI of 40.0-44.9, adult On anticoagulant therapy eliquis daily Prediabetes per pt reason for metformin Sleep apnea CPAP Surgical History History of esophagogastroduodenoscopy (EGD) with EUS @ [facility] 04/19/22 History of tooth extraction History of cardiac radiofrequency ablation x2--last 06/24/22 @ [facility] [place] Hx of breast biopsy History of appendectomy History of colonoscopy History of cardioversion x4--last 07/24/22---follows with Dr. Romero also had 03/06/22, 11/2021 and 01/2018 S/P ovarian cystectomy Family History Grandfather Family hx of colon cancer Family/Other Family history of diabetes mellitus Other No family history of adverse response to anesthesia Social History Smoking Status: Former smoker Tobacco Type: Cigarettes Smoking End Date: n/a; Second Hand Exposure: No; Do You Dip or Chew Tobacco: No; Tobacco Cessation Education Requested by Patient: No Hx Alcohol Use: No Hx Substance Use: No Preferred Language: Burundian Communication Ability: Effective Supervisor Post Wave Required: No Beliefs That Will Affect Care: None Current Living Situation: Alone Other Information That Helps Us Care for You: No Feels Safe at Home: Yes Safety Concerns: Feels Safe At This Time Assistive Devices: Cane and Glasses Review of Systems Review of Systems: All systems reviewed & are unremarkable except as noted in HPI & below Physical Exam Constitutional: WD/WN, vitals as above no acute distress Neck: normal visual inspection and trachea midline Respiratory: normal respiratory effort, lungs clear to auscultation Auscultation: + diminished lung sounds Cardiovascular: Rate/Rhythm: regular rate and regular rhythm Heart Sounds: normal S1 and normal S2; no murmur Vessels: no JVD Extremities: no edema Gastrointestinal (Abdomen): normal bowel sounds, soft, nontender, no hepatosplenomegaly Skin: no rashes, warm and dry Neurologic: Speech / Cognition: + expressive aphasia Psychiatric: Orientation: alert and oriented x 3 Results & Data Vital Signs (Past 12 Hours) Vital Signs Temp Pulse Pulse Resp BP BP Pulse Ox 01/24/23 07:39 36.4 C L 52 L 18 177/94 H 96 01/24/23 04:45 36.6 C 57 L 20 173/83 H 94 01/24/23 03:01 58 L 24 96 01/24/23 00:19 36.6 C 58 L 20 182/82 H 97 01/24/23 00:08 62 01/23/23 23:00 56 L 23 151/70 H 93 01/23/23 22:34 52 L 26 H 167/84 H 95 01/23/23 22:00 56 L 16 158/94 H 94 01/23/23 21:30 48 L 19 179/107 H 95 01/23/23 21:28 47 L 20 160/105 H 97 01/23/23 21:27 51 L 20 160/105 H 97 01/23/23 21:00 48 L 22 181/100 H 94 01/23/23 20:32 55 L 18 167/80 H 94 01/23/23 20:30 57 L 16 167/80 H 95 01/23/23 20:00 57 L 25 H 95 01/23/23 19:59 189/91 H 01/23/23 19:59 57 L 26 H 94 O2 Del Method 01/24/23 07:39 Room Air 01/24/23 04:45 Room Air, CPAP 01/24/23 03:01 01/24/23 00:19 Room Air 01/24/23 00:08 01/23/23 23:00 01/23/23 22:34 01/23/23 22:00 01/23/23 21:30 01/23/23 21:28 Room Air 01/23/23 21:27 01/23/23 21:00 01/23/23 20:32 Room Air 01/23/23 20:30 01/23/23 20:00 01/23/23 19:59 01/23/23 19:59 Laboratory Results Cardiac Enzymes 01/23/23 Range/Units 19:47 AST 36 (13-39) U/L Troponin I High Sens 11.4 (0-14) pg/ml Coagulation 01/23/23 01/23/23 Range/Units 19:47 20:51 PT Cancelled 11.5 APTT Cancelled 28.1 Lipids 01/24/23 Range/Units 06:35 Triglycerides 103 (0-150) mg/dl Cholesterol 204 H (0-200) mg/dl HDL Cholesterol 78 mg/dl Cholesterol/HDL Ratio 2.6 (0-5) CBC 01/23/23 01/24/23 Range/Units 19:47 06:35 WBC 9.47 5.94 (4.8-10.8) K/ul RBC 4.62 4.41 (4.20-5.40) M/uL Hgb 14.5 13.8 (12.0-16.0) g/dl Hct 43.6 41.2 (37.0-47.0) % Plt Count 269 237 (130-400) K/uL Neut # (Auto) 7.05 H 4.15 (1.40-6.50) K/uL Lymph # (Auto) 1.59 1.17 L (1.20-3.40) K/uL Brooks # (Auto) 0.68 H 0.54 (0.11-0.59) K/uL Eos # (Auto) 0.06 0.04 (0.00-0.50) K/uL Baso # (Auto) 0.05 0.02 (0.00-0.20) K/uL Comprehensive Metabolic Panel 01/23/23 01/24/23 Range/Units 19:47 06:35 Sodium 133 L 138 (136-145) mmol/L Potassium 4.6 4.0 (3.5-5.1) mmol/L Chloride 99 104 (98-107) mmol/L Carbon Dioxide 23 25 (21-32) mmol/L BUN 20 17 (6-23) mg/dl Creatinine 0.89 0.74 (0.6-1.2) mg/dl Glucose 189 H 101 H (70-99(Fasting)) mg/dl Calcium 10.1 9.5 (8.6-10.3) mg/dl AST 36 (13-39) U/L ALT 36 (7-52) U/L Alkaline Phosphatase 55 (34-104) U/L Total Protein 8.1 (6.0-8.3) gm/dl Albumin 4.7 (3.4-5.0) gm/dl Intake and Output 01/23/23 01/24/23 01/24/23 22:59 06:59 14:59 Intake Total 50 / 50 Balance 50 / 50 Intake: Oral 50 / 50 Other: # Unmeasured Voids 1 1 Weight 105.2 kg 104.4 kg Weight Measurement Method Chair Scale Built in [facility]
[2023-01-24] MEDS ORDERED: METOPROLOL TARTRATE 25 MG TAB PO ONE (08:34)
[2023-01-24] MEDS ORDERED: ATORVASTATIN 40 MG TAB PO SCH (09:00)
[2023-01-24] MEDS ORDERED: NON-FORMULARY MEDICATION (Fluticasone-Umeclidin-Vilanter [Trelegy Ellipta] 200-62.5-25 mcg INH SCH (09:00)
[2023-01-24] MEDS: UMECLIDINIUM/VILANTEROL 62.5/25MCG 7 PUFFS/INHALER INH SCH (09:13)
[2023-01-24] MEDS: FLUTICASONE FUROATE 200MCG 14 PUFFS/INHALER INH SCH (09:13)
[2023-01-24 09:57] LABS: Partial Thromboplastin Time 28.8 Seconds (21.0-31.0); Prothrombin Time 11.4 Seconds (9.0-12.0)
[2023-01-24] MEDS ORDERED: WARFARIN SOD 3 MG TAB PO ONE (10:06)
[2023-01-24] MEDS ORDERED: Heparin IV Adult Wt-Based Standard *NO* INITIAL Bolus Protocol IV SCH (10:15)
[2023-01-24] MEDS ORDERED: HEPARIN SODIUM/DEXTROSE 25,000 UNITS/500 ML BAG IV SCH (10:30)
--- NOTE | 2023-01-24 11:11 | Neurology Consultation ---
Date of Consultation January 24, 2023 Assessment & Plan (1) Acute CVA (cerebrovascular accident): Patient presents with a breakthrough embolic stroke despite anticoagulation. I agree with cardiology plan to switch to warfarin as she is an eliquis failure twice. She does not need the addition of plavix from our perspective and the stroke is small enough that resuming AC immediately is appropriate. -- Okay to switch to warfarin and follow cardiology plan for heparin/LMWH bridge. -- Stop Plavix -- No further neurologic workup, can follow-up in 6-8 weeks. Please contact us with further questions Telehealth Consultation Telehealth Information Telehealth Information: I performed this visit using a real-time telehealth connection between my location and the patients location ([facility]). After connecting through interactive tele-video, patient was identified by name and date of and/or wristband check.Patient (or authorized healthcare commissary representative) was informed that this was a telemedicine visit and it was being conducted confidentially over secure lines. My office door was closed and no one else was present in the room with me.Patient (or authorized healthcare rep resentative) provided consent to proceed with the visit, expressed an understanding of privacy and security of the telemedicine visit, and gave permission to have a hospital commissary representative in the room in order to assist with the visit and to conduct portions of the visit, as needed. I informed the patient (or authorized healthcare commissary representative) that I reviewed their record and presented the opportunity for them to ask any questions regarding the visit today. The patient agreed to participate. History of Present Illness Reason for Consultation: Stroke Requesting Physician: Dr. Calderon Attending Physician: Tutu Calderon MD History of Present Illness Kimberlee Hernandez is a 67 yo F presenting with difficulty speaking and R arm weakness noted by her daughter yesterday. I last saw the patient in August and resumed her eliquis at that time, for afib, and she reports excellent compliance. Despite anticoagulation an MRI performed early this morning does confirm a new stroke. The patient reports already feeling better than when she first arrived with no further R arm weakness. 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 Allergies Allergy/AdvReac Type Severity Reaction Status Date / Time erythromycin base Allergy Severe Rash Verified 08/15/22 15:20 Sulfa (Sulfonamide Allergy Severe Rash Verified 08/15/22 15:20 Antibiotics) aspirin Allergy Intermediate Rash Verified 08/15/22 15:20 latex Allergy Intermediate RASH Verified 08/15/22 15:20 Home Medications Medication Instructions Recorded Confirmed Type amiodarone 200 mg tablet 200 mg PO BID 01/23/23 01/23/23 History apixaban 5 mg tablet (Eliquis) 5 mg PO BID 01/23/23 01/23/23 History atorvastatin 40 mg tablet 40 mg PO DAILY 01/23/23 01/23/23 History bupropion HCl 300 mg 24 hr tablet, 300 mg PO DAILY 01/23/23 01/23/23 History extended release fluticasone fur. 200 mcg-umeclid 1 inh inhalation DAILY 01/23/23 01/23/23 History 62.5 mcg-vilant 25 mcg inhalat.powder (Trelegy Ellipta) gabapentin 100 mg capsule 100 mg PO BID 01/23/23 01/23/23 History losartan 50 mg tablet 50 mg PO DAILY 01/23/23 01/23/23 History metformin 500 mg tablet 500 mg PO BID 01/23/23 01/23/23 History metoprolol succinate 100 mg 100 mg PO BID 01/23/23 01/23/23 History tablet,extended release 24 hr montelukast 10 mg tablet 10 mg PO DAILY 01/23/23 01/23/23 History nortriptyline 25 mg capsule 25 mg PO HS 01/23/23 01/23/23 History tirzepatide 2.5 mg/0.5 mL 5 mg subcut WK 01/23/23 01/23/23 History subcutaneous pen injector (Mounjaro) Patient History Medical History ADD (attention deficit disorder) Asthma inhaler daily/nebulizer prn Atrial fibrillation follows with Dr. 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 Negative nuclear stress test 2017 and 01/2022 COPD (chronic obstructive pulmonary disease) Per records Depression H/O migraine Hepatitis C IN REMISSION HLD (hyperlipidemia) HTN (hypertension) Hyperthyroidism RADIOACTIVE IODINE TREATMENT Left ventricular systolic dysfunction (LVSD) History of dynamic ventricular outflow tract obstruction No significant LV outflow tract obstruction noted on resting ECHO 11/2021 per cardio records Mitral regurgitation Morbid obesity with BMI of 40.0-44.9, adult On anticoagulant therapy eliquis daily Prediabetes per pt reason for metformin Sleep apnea CPAP Surgical History History of esophagogastroduodenoscopy (EGD) with EUS @ [facility] 04/19/22 History of tooth extraction History of cardiac radiofrequency ablation x2--last 06/24/22 [place] [facility] [place] of breast biopsy History of appendectomy History of colonoscopy History of cardioversion x4--last 07/24/22---follows with Dr. Romero also had 03/06/22, 11/2021 and 01/2018 S/P ovarian cystectomy Family History Grandfather Family hx of colon cancer Family/Other Family history of diabetes mellitus Other No family history of adverse response to anesthesia Social History Smoking Status: Former smoker Tobacco Type: Cigarettes Smoking End Date: n/a; Second Hand Exposure: No; Do You Dip or Chew Tobacco: No; Tobacco Cessation Education Requested by Patient: No Hx Alcohol Use: No Hx Substance Use: No Preferred Language: [place] Communication Ability: Effective Tax Form Preparer Required: No Beliefs That Will Affect Care: None Current Living Situation: Alone Other Information That Helps Us Care for You: No Feels Safe at Home: Yes Safety Concerns: Feels Safe At This Time Assistive Devices: Cane and Glasses Review of Systems +word finding difficulties Physical Exam Neurological Examination: Mental Status: Awake and alert. Oriented to person, place, and time. Dysfluent speech with mild dysarthria and multiple paraphasic errors. Comprehension intact. Affect appropriate. Cranial Nerves: II: pupils 3/3 to 2/2 III/IV/: Versions intact without nystagmus, no gaze preference. VII: Facial expression symmetric Motor: Strength was symmetric and antigravity throughout. Pronator drift was absent. There were no abnormal movements. Reflexes: Unable to assess over telemedicine Results & Data Vital Signs (Past 12 Hours) Vital Signs Temp Pulse Pulse Resp BP Pulse Ox O2 Del Method 01/24/23 08:00 58 L 01/24/23 08:00 Room Air 01/24/23 07:39 36.4 C L 52 L 18 177/94 H 96 Room Air 01/24/23 04:45 36.6 C 57 L 20 173/83 H 94 Room Air, CPAP 01/24/23 03:01 58 L 24 96 01/24/23 00:19 36.6 C 58 L 20 182/82 H 97 Room Air 01/24/23 00:08 62 Laboratory Results Abnormal lab results 01/23/23 01/23/23 01/24/23 Range/Units 19:44 19:47 06:35 RDW Std Deviation 46.6 H 46.5 H (36.4-46.3) fL Neut # (Auto) 7.05 H (1.40-6.50) K/uL Lymph # (Auto) 1.17 L (1.20-3.40) K/uL [place] # (Auto) 0.68 H (0.11-0.59) K/uL Sodium 133 L (136-145) mmol/L BUN/Creatinine Ratio 22.5 H 23.0 H (10-20) Glucose 189 H 101 H (70-99(Fasting)) mg/dl POC Glucose 176 H (70-99) mg/dl Hemoglobin A1c 6.1 H (4.5-5.6) % Cholesterol 204 H (0-200) mg/dl Diagnostic Findings MRI brain - small embolic appearing L MCA stroke CTA - No new changes or LVO.
--- NOTE | 2023-01-24 11:13 | Communication Note ---
Date of Service: January 24, 2023 Neurology input noted and appreciated. Clopidogrel stopped.
--- NOTE | 2023-01-24 11:22 | Electrocardiogram Report ---
Test Reason : Blood Pressure : / mmHG Vent. Rate : 054 BPM Atrial Rate : 054 BPM P-R Int : 200 ms QRS Dur : 106 ms QT Int : 514 ms P-R-T Axes : 068 091 038 degrees QTc Int : 487 ms Sinus bradycardia with sinus arrhythmia Rightward axis Minimal voltage criteria for LVH, may be normal variant Nonspecific T wave abnormality Borderline ECG When compared with ECG of 16-AUG-2022 05:33, Nonspecific T wave abnormality has replaced inverted T waves in Anterior leads Confirmed by Denzel Stewart ([id number]) on 01/24/2023 11:21:35 AM Referred By: REFERRED SELF Confirmed By:Denzel Stewart
[2023-01-24] MEDS ORDERED: METOPROLOL SUCC 50MG EXT REL TAB PO SCH ×2 (11:59→21:00)
[2023-01-24] MEDS ORDERED: METOPROLOL SUCC 50MG EXT REL TAB PO ONE (11:59)
[2023-01-24] MEDS: AMIODARONE 200 MG TAB PO SCH (17:38)
[2023-01-24 18:34] LABS: Partial Thromboplastin Ratio 1.7
[2023-01-24 18:49] LABS: Partial Thromboplastin Time 48.6 Seconds (21.0-31.0)
[2023-01-24] MEDS: NORTRIPTYLINE HCL 25 MG CAP PO SCH (20:00)
--- NOTE | 2023-01-24 22:03 | Communication Note ---
Date of Service: January 24, 2023 Followup with Thyroid ultrasound for right thyroid nodule seen on c scan. Thanks
[2023-01-25] MEDS ORDERED: LORazepam 2 MG/1 ML VIAL ONE (00:14)
[2023-01-25] MEDS ORDERED: diazePAM 5 MG/ML 10ML VIAL IV STA ×2 (00:24→00:25)
[2023-01-25 00:35] LABS: Partial Thromboplastin Ratio 1.7
[2023-01-25 00:38] LABS: Partial Thromboplastin Time 48.8 Seconds (21.0-31.0)
[2023-01-25] MEDS ORDERED: PROPOFOL IV EMULSION 10 MG/ML 100 ML VIAL IV ONE (00:42)
[2023-01-25] MEDS: propofoL 1,000 MG/100 ML VIAL IV SCH ×4 (00:45→22:47)
[2023-01-25] MEDS ORDERED: DOPamine 400MG / 250ML D5W IV ONE (01:17)
[2023-01-25] MEDS ORDERED: STAT IV Infusion **Titration per Protocol STA ×4 (01:20→02:42)
[2023-01-25] MEDS ORDERED: SODIUM BICARB 8.4% INJ 50 MEQ/50 ML SYR IV STA ×2 (01:23)
[2023-01-25] MEDS ORDERED: ATROPINE SULFATE 0.1 MG/ML 10ML SYR IV ONE ×2 (01:24→01:25)
[2023-01-25] MEDS ORDERED: SODIUM BICARB 8.4% INJ 50 MEQ/50 ML SYR IV ONE (01:24)
[2023-01-25] MEDS ORDERED: NOREPINEPHRINE/D5W 4 MG/250 ML IV ONE (01:29)
[2023-01-25] MEDS: DOPamine / D5W 400 MG/250 ML BAG IV SCH ×3 (01:30→19:16)
[2023-01-25 01:47] LABS: Basophils # (auto) 0.01 K/uL (0.00-0.20); Basophils % (auto) 0.1 %; Eosinophils # (auto) 0.03 K/uL (0.00-0.50); Eosinophils % (auto) 0.3 %; Hematocrit (blood only) 40.8 % (37.0-47.0); Hemoglobin 13.2 g/dl (12.0-16.0); Immature Granulocytes # (auto) 0.04 K/uL (0.01-0.20); Immature Granulocytes % (auto) 0.3 %; Lymphocytes # (auto) 0.67 K/uL (1.20-3.40); Lymphocytes % (auto) 5.7 %; Mean Corpuscular Hemoglobin 31.1 pg (25.0-34.0); Mean Corpuscular Hgb Conc 32.4 g/dL (32.0-36.0); Mean Corpuscular Volume 96.2 fL (80.0-100.0); Mean Platelet Volume 9.8 fL (9.4-12.4); Monocytes # (auto) 0.66 K/uL (0.11-0.59); Monocytes % (auto) 5.6 %; Platelet Count 266 K/uL (130-400); RDW Coefficient of Variation 13.6 % (11.5-14.5); RDW Standard Deviation 48.4 fL (36.4-46.3); Red Blood Count 4.24 M/uL (4.20-5.40); White Blood Count 11.71 K/ul (4.8-10.8)
--- NOTE | 2023-01-25 01:55 | Critical Care Consultation ---
Date of Consultation January 25, 2023 Assessment & Plan (1) Acute CVA (cerebrovascular accident): (2) Sleep apnea: (3) T2DM (type 2 diabetes mellitus): (4) Stroke-like symptoms: (5) Encounter for pre-operative examination: (6) Atrial fibrillation: (7) Seizure-like activity: (8) Required emergent intubation: (9) Symptomatic bradycardia: (10) Encephalopathy: Plan Reason Critically Ill: Patient with reported seizure like activity remained encephalopathic/post ictal, required emergent intubation for sedation to rule out intracranial process, as well as symptomatic bradycardia requiring vasoactive support. Neuro - Acute CVA, Chronic CVA, Seizure like activity, sedation for mechanical ventilation, hx anxiety and depression CAM ICU: UITA - Immediate concern for for intracerebral ischemia vs. extension of new infarct or new territorial infarction- pupils remained reactive throughout- currently only with spontaneous movement on left - Head CT obtained following stabilization from respiratory and cardiovascular status- CT negative for catastrophic intracranial hemorrhage, new or increasing large territorial infraction - Sedation with Propofol for goal RINA -1 as well as for seizure prophylaxis - Obtain MRI to evaluate for further new infarcts or changes - Continue with heparin infusion with current primary team/neurology plan to transition to warfarin - Don't at this time feel infectious etiology is a part in her presentation - As she has been anticoagulated and reportedly has not missed any Eliquis prior to admission - doubt that a dural thrombus is the culprit and she will continue to be anticoagulated - Consider EEG in morning - Increase statin to high intensity atorvastatin 80mg - BP support for MAPS >65 with ability to increase pressures if neurological status wanes with hypotension - Unsure of cause of seizure at this time, but may be related to left frontal/parietal cortex and/or centrum semiovale Cardiac - Symptomatic bradycardia, afib, - Bradycardia noted to 40s into the 30s with junctional rhythm and junctional escape beats- did receive a one time dose of metoprolol 25 mg started 01/24/23 - in setting of preserved renal function doubt any toxicity from beta blockade and note of HR in the 50s to 40s prior to admission- however now with noted junctional rythm and vasopressors required - Will support at this time with Dopamine to keep HR >40 and BP with maps ~80 s to support penumbra - Wean as appropriate - ECG is without STEMI - ECHO 01/24/23- preserved EF 55-60% with normal LV function and normal MV and AV Respiratory - Respiratory failure requiring emergent intubation and mechanical ventilation - With aspiration around mouth following seizure - may have component of aspiration pneumonitis- PEEP has been able to be weaned down as well as FIO2 - Hypoxia on arrival to ICU requiring BVM with PEEP 10 and once on mechanical ventilation PEEP needed up to 10 - Continue with lung protective ventilation management- ABG post intubation with appropriate PH, CO2 and PaO2 - Wean as appropriate GI - No acute concerns at this time - OGT to LIWS - initiate enteral feeds if not extubated and if vasopressor requirements able to be weaned RENAL/LYTES - No acute needs at this time - Replete magnesium - ICU electrolyte protocol - No concerns at this time - Continue La catheter while intubated and sedate ENDO - DMII - ICU hyperglycemic protocol goal BG <180mg/dl HEME - NO acute concerns at this time ID - Aspiration pneumonitis - Was febrile on arrival to ICU and has downtrended over past few hours - will obtain blood cultures and urine culture for completeness - however low concern for sepsis or active infection - hold on abx therapy at this time LINES/IV ACCESS - Arterial line, PIVx2, CVL, ETT, OGT, La catheter Continue use of these lines DVT PROPHYLAXIS - SCDS DISPO: ICU while mechanically intubated and sedated as well as until hemodynamics proven stable off vasopressor support I have personally spent 90 minutes of critical care time in the direct management of this patient. This is a life/limb threatening event. This includes time spent evaluating patient, direct bedside care, chart review, placing orders, interpretation of diagnostic studies, discussion with consultants, patient, and family members, as well as other required patient management activities. This time is exclusive of all separately billable procedures, and teaching time and separate from and in addition to any other critical care service time. Thank you for allowing us to participate in the care of this patient. Please refer to my attending physician's documentation for any further recommendations. Supervising Physician Co-Signing Physician Notes Patient seen and examined. EMR reviewed. Discussed with critical care RENÉ as well as with cardiology and patient family at bedside and on multidisciplinary rounds. Agree with assessment plan as noted by RENÉ. Patient was intubated to facilitate imaging studies in to control agitation which potentially was postictal. EEG, MRI of the brain, and repeat neurology evaluation are currently pending. Will continue propofol for now until those studies have been completed. At that point time can likely work on liberation from mechanical ventilator. After discussion with cardiology, elected to continue anticoagulation with heparin. Patient may require permanent pacemaker sometime next week so we will avoid Coumadin at this point in time. Will continue to follow electrolytes and other laboratory studies. The patient appears to be stable at this point in time. Daughter updated at bedside. Patient is critically ill with significant multiorgan system dysfunction and possibility of clinical deterioration. Additional 35 minutes in critical care time was spent in evaluation management this patient. History of Present Illness Reason for Consultation: siezure like activity with declination of mental status requiring emergent intubation Requesting Physician: Homar Saenz MD Attending Physician: Tutu Calderon MD History of Present Illness 67 YOF with complicated medical history with previous right MCA CVA following cardioversion for afib, DM II, COPD, LILI, afib (on Eliquis and amiodarone), NICM, mitral regurg, CAD, depression with anxiety. Admitted on 01/23/23 for stroke like symtpoms and bradycardia. The patient was not a candidate for TNK secondary to time as well as being on Eliquis. She was noted to have multiple small areas of infarcts insular region, left posterior centrum ovale and left frontal/parietal cortex. This was thought to be failure of Eliquis and was placed on heparin infusion. This late evening the patient was on the velasquez on CPAP/BiPAP and ARTUR ELIZONDO was called. It was reported that the patient had seizure like activity she was being managed by primary hospitalist service as he was at the bedside, the patient was awake with sonorous respirations, combative and moving all extremities but not quite following commands as well as some emesis around her mouth. She was given Ativan 2mg to break seizure and followed by 5mg Valium to attempt to calm her down to obtain head CT scan for concern for intracranial bleed. This was not effective and decision was made to bring patient to ICU for intubation and sedation to obtain imaging and stabilize her. She was noted to be combative still on arrival to the ICU as well as bradycardic to the 40s. Patient was subsequently intubated (see procedure notes) and did require a tube exchange secondary to cuff malfunction. Patient required PEEP of 10 and 100% FIo2 to improve spo2 from 88-mid 90s, RR was increased. Patient continued to be bradycardic and progressed to hypotension. She was initiated on Dopamine as well as given NAHCO3 2 amps, HR improved and remained hypotensive and a short course of Levophed was initiated. She was taken to CT to obtain non con head CT, hemodynamics continued to improve at that time and was starting to move her left side. Upon return to the ICU the Patientn's daughter Enid did present and was updated by primary hospitalist. Arterial line was placed emergently for hemodynamic monitoring and obtaining labs. CT non con reviewed and did not show any large bleed or new large territorial infarct or increase in previous areas as interpreted by me, while offical read is pending, did accompany patient to CT scan for continued hemodynamic monitoring and evaluation of imaging. Patient will be sedated and ventilated continue with propofol for seizure prevention at this time, hemodynamic support for symptomatic junctional bradycardia. Will place central access and wean vasoactive medications as able. Will obtain blood and urine cultures. CODE: FULL Allergies Allergy/AdvReac Type Severity Reaction Status Date / Time erythromycin base Allergy Severe Rash Verified 08/15/22 15:20 Sulfa (Sulfonamide Allergy Severe Rash Verified 08/15/22 15:20 Antibiotics) aspirin Allergy Intermediate Rash Verified 08/15/22 15:20 latex Allergy Intermediate RASH Verified 08/15/22 15:20 Home Medications Medication Instructions Recorded Confirmed Type amiodarone 200 mg tablet 200 mg PO BID 01/23/23 01/23/23 History apixaban 5 mg tablet (Eliquis) 5 mg PO BID 01/23/23 01/23/23 History atorvastatin 40 mg tablet 40 mg PO DAILY 01/23/23 01/23/23 History bupropion HCl 300 mg 24 hr tablet, 300 mg PO DAILY 01/23/23 01/23/23 History extended release fluticasone fur. 200 mcg-umeclid 1 inh inhalation DAILY 01/23/23 01/23/23 History 62.5 mcg-vilant 25 mcg inhalat.powder (Trelegy Ellipta) gabapentin 100 mg capsule 100 mg PO BID 01/23/23 01/23/23 History losartan 50 mg tablet 50 mg PO DAILY 01/23/23 01/23/23 History metformin 500 mg tablet 500 mg PO BID 01/23/23 01/23/23 History metoprolol succinate 100 mg 100 mg PO BID 01/23/23 01/23/23 History tablet,extended release 24 hr montelukast 10 mg tablet 10 mg PO DAILY 01/23/23 01/23/23 History nortriptyline 25 mg capsule 25 mg PO HS 01/23/23 01/23/23 History tirzepatide 2.5 mg/0.5 mL 5 mg subcut WK 01/23/23 01/23/23 History subcutaneous pen injector (Mounjaro) Patient History Medical History Left ventricular systolic dysfunction (LVSD) History of dynamic ventricular outflow tract obstruction No significant LV outflow tract obstruction noted on resting ECHO 11/2021 per cardio records COPD (chronic obstructive pulmonary disease) Per records Cardiomyopathy Tachycardiac vs idopathic CM (EF 48% in 2017- improved to 55% in 11/2021). Negative nuclear stress test 2017 and 01/2022 Morbid obesity with BMI of 40.0-44.9, adult Prediabetes per pt reason for metformin On anticoagulant therapy eliquis daily Hyperthyroidism RADIOACTIVE IODINE TREATMENT Depression Cardiac murmur Sleep apnea CPAP Asthma inhaler daily/nebulizer prn Mitral regurgitation ADD (attention deficit disorder) Hepatitis C IN [place] H/O migraine HLD (hyperlipidemia) HTN (hypertension) Atrial fibrillation follows with Dr. Romero--on eliquis/metoprolol/amiodarone Surgical History History of esophagogastroduodenoscopy (EGD) with EUS @ [facility] 04/19/22 History of tooth extraction History of cardiac radiofrequency ablation x2--last 06/24/22 [place] [facility] [place]x of breast biopsy History of appendectomy History of colonoscopy History of cardioversion x4--last 07/24/22---follows with Dr. Romero also had 03/06/22, 11/2021 and 01/2018 S/P ovarian cystectomy Family History Grandfather Family hx of colon cancer Family/Other Family history of diabetes mellitus Other No family history of adverse response to anesthesia Social History Smoking Status: Former smoker Tobacco Type: Cigarettes Smoking End Date: n/a; Second Hand Exposure: No; Do You Dip or Chew Tobacco: No; Tobacco Cessation Education Requested by Patient: No Hx Alcohol Use: No Hx Substance Use: No Preferred Language: Bahraini Communication Ability: Impaired Core Mounter Required: No Beliefs That Will Affect Care: None Current Living Situation: Alone Other Information That Helps Us Care for You: No Feels Safe at Home: Yes Safety Concerns: Feels Safe At This Time Assistive Devices: Cane Review of Systems Review of Systems: Unable to perform as patient is intubated and sedated Physical Exam Physical Exam: PHYSICAL EXAM: General: Combative not able to follow commands Head: Normocephalic, atraumatic ENT: mucous membranes dry, blood noted on tongue Neuro: encephalopathic/post ictal, pupils equal and reactive without nystagmus, strength intact bilaterally 5/5 - now moving left arm and leg only 5/5/, gag present as well as overbreathing ventilator Chest: equal rise and fall of the chest, no accessory muscle use, no heaves or thrills, Clear to auscultation, on room air, Cardiac: Regular rate and rhythm, telemetry reviewed, skin warm dry, cap refill <3 seconds, peripheral pulses +2 no JVD, no edema GI: NABS x 4 quadrants, soft, : La to gravity Skin: no rash or erythema Results & Data Results & Data Vital Signs (Past 12 Hours) Vital Signs Temp Pulse Pulse Resp BP BP Pulse Ox 01/24/23 23:19 37.5 C 79 18 129/82 91 01/24/23 21:55 65 01/24/23 19:08 36.5 C 57 L 22 188/82 H 96 01/24/23 16:25 36.7 C 55 L 18 176/89 H 95 01/24/23 16:12 50 L O2 Del Method 01/24/23 23:19 CPAP 01/24/23 21:55 01/24/23 19:08 Room Air 01/24/23 16:25 Room Air 01/24/23 16:12 Laboratory Results Abnormal lab results 01/24/23 01/24/23 01/24/23 Range/Units 06:35 11: 16:21 WBC (4.8-10.8) K/ul RBC (4.20-5.40) M/uL RDW Std Deviation 46.5 H (36.4-46.3) fL Neut # (Auto) (1.40-6.50) K/uL Lymph # (Auto) 1.17 L (1.20-3.40) K/uL Parmer # (Auto) (0.11-0.59) K/uL APTT (21.0-31.0) Seconds POC pO2 (80-95) mmHg POC HCO3 (19-24) temi/L POC Base Excess (-9-1.8) temi/L POC ABG O2 Sat (90-95) % Sodium (136-145) mmol/L BUN/Creatinine Ratio 23.0 H (10-20) Glucose 101 H (70-99(Fasting)) mg/dl POC Glucose 119 H 107 H (70-99) mg/dl Hemoglobin A1c 6.1 H (4.5-5.6) % Lactate (0.4-2.0) mmol/L Cholesterol 204 H (0-200) mg/dl 01/24/23 01/24/23 01/24/23 Range/Units 17:29 19:54 23:36 WBC (4.8-10.8) K/ul RBC (4.20-5.40) M/uL RDW Std Deviation (36.4-46.3) fL Neut # (Auto) (1.40-6.50) K/uL Lymph # (Auto) (1.20-3.40) K/uL Parmer # (Auto) (0.11-0.59) K/uL APTT 48.6 H* 48.8 H* (21.0-31.0) Seconds POC pO2 (80-95) mmHg POC HCO3 (19-24) temi/L POC Base Excess (-9-1.8) temi/L POC ABG O2 Sat (90-95) % Sodium (136-145) mmol/L BUN/Creatinine Ratio (10-20) Glucose (70-99(Fasting)) mg/dl POC Glucose 105 H (70-99) mg/dl Hemoglobin A1c (4.5-5.6) % Lactate (0.4-2.0) mmol/L Cholesterol (0-200) mg/dl 01/25/23 01/25/23 01/25/23 Range/Units 01:26 02:32 03:35 WBC 11.71 H 10.99 H (4.8-10.8) K/ul RBC 4.08 L (4.20-5.40) M/uL RDW Std Deviation 48.4 H (36.4-46.3) fL Neut # (Auto) 10.30 H (1.40-6.50) K/uL Lymph # (Auto) 0.67 L (1.20-3.40) K/uL Parmer # (Auto) 0.66 H (0.11-0.59) K/uL APTT 32.4 H (21.0-31.0) Seconds POC pO2 199 H (80-95) mmHg POC HCO3 28 H (19-24) temi/L POC Base Excess 3.0 H (-9-1.8) temi/L POC ABG O2 Sat 100.0 H (90-95) % Sodium 135 L (136-145) mmol/L BUN/Creatinine Ratio (10-20) Glucose 239 H (70-99(Fasting)) mg/dl POC Glucose (70-99) mg/dl Hemoglobin A1c (4.5-5.6) % Lactate 2.7 H* (0.4-2.0) mmol/L Cholesterol (0-200) mg/dl Diagnostic Findings Head CT 01/25/23 00:32 Exam(s): CT HEAD Without Contrast EXAM: CT Head Without Intravenous Contrast CLINICAL HISTORY: Seizure TECHNIQUE: Axial computed tomography images of the head/brain without intravenous contrast. CTDI is 36.12 mGy and DLP is 625.8 mGy-cm. Automated exposure control was utilized for the study. A dose lowering technique was utilized adhering to the principles of ALARA. COMPARISON: MRI brain 01/24/2023 FINDINGS: Brain: Loss of rock-white differentiation of the left insular ribbon consistent with patient's history of subacute infarct. Encephalomalacia of the right frontoparietal lobe. No intracranial hemorrhage, mass- effect or midline shift. Ventricles: Unremarkable. No ventriculomegaly. Bones/joints: Unremarkable. No acute fracture. Soft tissues: Unremarkable. Sinuses: Unremarkable as visualized. No acute sinusitis. Mastoid air cells: Unremarkable as visualized. No mastoid effusion. IMPRESSION: 1. Loss of rock-white differentiation of the left insular ribbon consistent with patient's history of subacute infarct. 2. No intracranial hemorrhage, mass-effect or midline shift. Electronically signed by: Colleen Knutson MD 01/25/23 03:21 AM Medications Administered Home Medications amiodarone 200 mg tablet 200 mg PO BID 01/23/23 [History Confirmed 01/23/23] apixaban 5 mg tablet (Eliquis) 5 mg PO BID 01/23/23 [History Confirmed 01/23/23] atorvastatin 40 mg tablet 40 mg PO DAILY 01/23/23 [History Confirmed 01/23/23] bupropion HCl 300 mg 24 hr tablet, extended release 300 mg PO DAILY 01/23/23 [History Confirmed 01/23/23] fluticasone fur. 200 mcg-umeclid 62.5 mcg-vilant 25 mcg inhalat.powder (Trelegy Ellipta) 1 inh inhalation DAILY 01/23/23 [History Confirmed 01/23/23] gabapentin 100 mg capsule 100 mg PO BID 01/23/23 [History Confirmed 01/23/23] losartan 50 mg tablet 50 mg PO DAILY 01/23/23 [History Confirmed 01/23/23] metformin 500 mg tablet 500 mg PO BID 01/23/23 [History Confirmed 01/23/23] metoprolol succinate 100 mg tablet,extended release 24 hr 100 mg PO BID 01/23/23 [History Confirmed 01/23/23] montelukast 10 mg tablet 10 mg PO DAILY 01/23/23 [History Confirmed 01/23/23] nortriptyline 25 mg capsule 25 mg PO HS 01/23/23 [History Confirmed 01/23/23] tirzepatide 2.5 mg/0.5 mL subcutaneous pen injector (Mounjaro) 5 mg subcut WK 01/23/23 [History Confirmed 01/23/23] Active Medications Acetaminophen (Acetaminophen 325 Mg Tab) 650 mg PO Q4H PRN PRN Reason: Fever/Mild Pain (Pain 1,2,3) Stop: 02/24/23 02:41 Amiodarone HCl (Amiodarone 200 Mg Tab) 200 mg PO BIDM [facility] Stop: 02/23/23 16:59 Last Admin: 01/24/23 17:38 Dose: 200 mg Atorvastatin Calcium (Atorvastatin 40 Mg Tab) 80 mg PO QAM [facility] Stop: 02/24/23 08:59 Bupropion HCl (Bupropion Xl 300 Mg Tabcr) 300 mg PO DAILY LYLY Stop: 02/23/23 08:59 Last Admin: 01/24/23 07:38 Dose: 300 mg Dextrose (Dextrose 50% 50 Ml Syringe) 25 - 50 ml IV UD PRN; Protocol PRN Reason: Hypoglycemia Protocol Stop: 02/23/23 00:12 Fentanyl Citrate (Fentanyl Bolus From Bag) 50 mcg IV Q60M PRN PRN Reason: Pain or Agitation Stop: 02/08/23 02:41 Fluticasone Furoate (Fluticasone Furoate 200mcg 14 Puffs/Inhaler) 1 puffs INH DAILY LYLY Stop: 02/23/23 08:59 Last Admin: 01/24/23 09:13 Dose: 1 puffs Gabapentin (Gabapentin 100 Mg Cap) 100 mg PO BID LYLY Stop: 02/23/23 08:59 Last Admin: 01/24/23 20:00 Dose: 100 mg Glucagon (Glucagon For Inj 1 Mg Vial) 1 mg SQ UD PRN; Protocol PRN Reason: Hypoglycemia Protocol Stop: 02/23/23 00:12 Glucose (Glucose 10 Tab/Tube) 4 - 8 tab PO UD PRN; Protocol PRN Reason: Hypoglycemia Treatment Stop: 02/23/23 00:12 Glucose (Glucose 40% Gel 15 Gm Tube) 15 - 30 gm PO UD PRN; Protocol PRN Reason: Hypoglycemia Protocol Stop: 02/23/23 00:12 Dopamine HCl/Dextrose (Dopamine / D5w) 400 mg in 250 mls @ 19.575 mls/hr IV .[id number] LYLY; Protocol Stop: 02/24/23 01:29 Last Titration: 01/25/23 02:34 Dose: 5 mcg/kg/min, 19.6 mls/hr Norepinephrine Bitartrate (Levophed/D5w) 4 mg in 250 mls @ 15.66 mls/hr IV .[id number] LYLY; Protocol Stop: 02/24/23 01:59 Last Titration: 01/25/23 02:33 Dose: 0.04 mcg/kg/min, 15.7 mls/hr Propofol (Diprivan) 1,000 mg in 100 mls @ 21.924 mls/hr IV .[id number] LYLY; Protocol Stop: 01/28/23 02:29 Last Titration: 01/25/23 02:40 Dose: 35 mcg/kg/min, 21.9 mls/hr Heparin Sodium/Dextrose (Heparin Sodium/Dextrose) 25,000 units in 500 mls @ 0. 02 mls/hr IV .Q24H [facility]; Protocol Stop: 02/24/23 02:44 Fentanyl Citrate (Fentanyl Citrate) 2,500 mcg in 250 mls @ 5 mls/hr IV .Q50H [facility]; Protocol Stop: 02/08/23 02:44 Last Admin: 01/25/23 02:53 Dose: 50 mcg/hr, 5 mls/hr Magnesium Sulfate/Dextrose (Magnesium Sulfate / D5w) 1 gm in 100 mls @ 50 mls/hr IV Q2H LYLY Stop: 01/25/23 08:44 Last Admin: 01/25/23 03:52 Dose: 50 mls/hr Insulin Aspart (Insulin Aspart Per Unit Charge) 0 units SC ACHS LYLY Stop: 02/23/23 20:59 Last Admin: 01/24/23 19:56 Dose: Not Given Losartan Potassium (Losartan Potassium 50 Mg Tab) 50 mg PO DAILY LYLY Stop: 02/23/23 08:59 Last Admin: 01/24/23 07:37 Dose: 50 mg Metoprolol Succinate (Metoprolol Succ 50mg Ext Rel Tab) 100 mg PO BID LYLY Stop: 02/23/23 20:59 Last Admin: 01/24/23 20:00 Dose: 100 mg Miscellaneous (Carbohydrates For Hypoglycemia ) 15 - 30 gm PO UD PRN PRN Reason: Hypoglycemia Protocol Stop: 02/23/23 00:12 Miscellaneous Information (Pharmacist Discharge Med Rec Consult) 1 each N/A UD PRN PRN Reason: Consult Stop: 02/23/23 00:12 Montelukast Sodium (Montelukast Sodium 10 Mg Tablet) 10 mg PO DAILY [facility] Stop: 02/23/23 08:59 Last Admin: 01/24/23 07:38 Dose: 10 mg Nitroglycerin (Nitroglycerin Sl 0.4 Mg/Tab Tab) 0.4 mg SL Q5M PRN PRN Reason: Chest Pain Stop: 02/23/23 00:12 Nortriptyline HCl (Nortriptyline Hcl 25 Mg Cap) 25 mg PO HS [facility] Stop: 02/23/23 20:59 Last Admin: 01/24/23 20:00 Dose: 25 mg Propofol (Propofol Bolus From Bag) 20 mg IV Q5M PRN PRN Reason: Sedation Stop: 01/28/23 02:16 Last Admin: 01/25/23 02:00 Dose: 20 mg Umeclidinium/Vilanterol (Umeclidinium/Vilanterol 62.5/25mcg 7 Puffs/Inhaler) 1 puffs INH DAILY LYLY Stop: 02/23/23 08:59 Last Admin: 01/24/23 09:13 Dose: 1 puffs Zinc Acetate/Diphenhydramine (Diphenhydramine 2%/Zinc 0.1% Cream 28.4gm Tube) 1 appln EXT BID PRN PRN Reason: Itching Stop: 02/23/23 05:55 Last Admin: 01/24/23 20:02 Dose: 1 appln Coding Level of Care Code 56358 CRITICAL CARE EA ADD 30M Diagnoses Acute CVA (cerebrovascular accident) I63.9 Sleep apnea G47.30 T2DM (type 2 diabetes mellitus) E11.9 Stroke-like symptoms R29.90 Encounter for pre-operative examination Z01.818 Atrial fibrillation I48.91 Seizure-like activity R56.9 Required emergent intubation Z98.890 Symptomatic bradycardia R00.1 Encephalopathy G93.40
--- NOTE | 2023-01-25 01:56 | Procedure Note ---
Procedure Note Date of Service January 25, 2023 Note INTUBATION PROCEDURE NOTE: This is separate from initial intubation procedure Proceduralist: Liam THOMPSON ([facility]) Attending: Dr. KAY Following initial intubation peformed by Dr. Ferraro, ETT cuff was noted with leak with loss of cuff pressure and loss of VT- requiring replacement of ETT - The pateint was prepped in regular fashion- Bougie was ready, view was obtained with GlideScope S3 blade visualized original ETT through the vocal cords with cuff as well below cords, Backup ETT with sytelett was available and replacement ETT to be placed over bougie was prepared. Suction was available. Once all staff was ready, view of the ETT and cords was maintained by Dr. Ferraro. The patient was disconnected from the Ventilator and BVM was applied and performed by respiratory, the patient was still noting to breath and fight back against BVM, she was given 50mcg Fentanyl, and 50 of Succinylcholine and remained on Propofol infusion as directed by Dr. Ferraro. Once the patient was relaxed, the Bougie was passed down through existing ETT, the bougie was visualized following course through vocal cords via the GlideScope blade. The cuff was then deflated and ETT removed, the new ETT was loaded onto the Bougie and advanced, resistance was met at arytenoids requiring counter clockwise rotation, which allowed the tube to be advanced without resistance. The tube was directly visualized by self and Dr. Ferraro passing through cords, it was advanced to 24cm at lip and cuff was inflated. The bougie was removed without difficulty, patient was connected to BVM with immediate color change on ETcO2. Lung sounds were appreciated bilaterally. Sedative agent used: Propofol infusion, Fentanyl, Paralysis agent used: Succinylcholine Emergent consent was implied given patients rapidly declining clinical status and need for airway protection and immediate need for change of ETT. Dr. Ferraro was present for the entire procedure, this was a two provider airway management approach Post Intubation Chest X-ray confirms placement without pneumothorax- the ETT was withdrawn 1cm Patient tolerated the procedure well and there were no immediate complications appreciated. Coding CPT Codes Resuscitation - Resuscitation: [id number] Endotracheal Intubation, emergency ([id number]) [facility] – [place] Procedure Codes (Charges) Indication for Procedure Indication for procedure: Exchange of ETT Resuscitation Resuscitation: [id number] Endotracheal Intubation, emergency
--- NOTE | 2023-01-25 01:56 | Procedure Note ---
Procedure Note Date of Service January 25, 2023 Note Procedure: Arterial Line Placement Proceduralist: Liam THOMPSON ([facility]-) Attending: Dr. KAY Indication: Monitoring on Pressors Anesthesia: [x]Lidocaine 1% Emergent Consent was implied as the patient is a full code and progressing hypotension and bradycardia with immediate need for vasopressor and hemodynamic monitoring A time-out was completed verifying correct patient, procedure, site, positioning, and implant(s) or special equipment if applicable. Allens test was performed to ensure adequate perfusion. Patients LEFT wrist was prepped and draped in the usual sterile fashion. Ultrasound guidance was used to supervisor functional testing the vessel and then directly aid needle placement. A 20g Arrow arterial line was introduced into the LEFT RADIAL artery. Flash of blood was obtained, the catheter was threaded, and the needle was removed with appropriate blood return. Good waveform was observed following connection of pressure tubing. The patient tolerated the procedure well. The line was then secured in place by suture and was then covered by sterile tegaderm. Attempts x1. Blood Loss: Minimal Complications: None immediatley noted Coding CPT Codes Tubes, Drains, and Vasc Access - Tubes, Drains, and Vasc Access: [id number] Arterial Cath/Cannulation Sampling/Monitoring/Transfusion ([id number]) [facility] [place] Procedure Codes (Charges) Tubes, Drains, and Vasc Access Procedure 1: Tubes, Drains, and Vasc Access: [id number] Arterial Cath/Cannulation Sampling/Monitoring/Transfusion
[2023-01-25] MEDS ORDERED: NOREPINEPHRINE/D5W 4 MG/250 ML PLCT IV SCH (02:00)
[2023-01-25] MEDS: PROPOFOL BOLUS FROM BAG IV PRN (02:00)
[2023-01-25 02:03] LABS: Albumin Globulin Ratio 1.4 (0.9-2); BUN Creatinine Ratio 14.6 (10-20); Bilirubin,Total 0.7 mg/dl (0.2-1.0); Calcium 8.9 mg/dl (8.6-10.3); Creatinine Clr Calc Pharmacy 63.8 ml/min; Est GFR (African American) 64.7 ml/min; Est GFR (Non-African American) 55.8 ml/min; Globulin 2.8 gm/dl (2.5-4.0); Magnesium 1.7 mg/dl (1.7-2.4); Phosphorus 4.4 mg/dl (2.5-4.9); Potassium 4.4 mmol/L (3.5-5.1); Total Protein 6.8 gm/dl (6.0-8.3)
--- NOTE | 2023-01-25 02:12 | Procedure Note ---
Procedure Note Date of Service January 25, 2023 Note I was contacted to come intubate the patient due to concern for altered mental status and somnolence following a seizure. Patient was also agitated and nursing staff was having difficulty obtaining accurate vital signs including pulse oximetry. Nursing staff had also stated she had vomited prior to the seizure and so there was additional concern for possible aspiration. Patient was moved from the floors down to the intensive care unit. She continued to be agitated and was given supplemental oxygen while preparations made for intubation. Patient had been given Ativan and Valium on the floor initially, however was still markedly agitated in the ICU. She was given an additional 5 mg IV Versed which did help in calming her down. Equipment all brought to the head of the bed and RT at bedside. Patient given 50 mg of propofol and 50 mg of succinylcholine and was intubated using video laryngoscopy with a 7.5 ET tube. The tube was visualized passing through the cords. She was 24 cm at the lip. Capnography color change noted, condensation of the tube seen, bilateral breath sounds heard. Patient started on propofol for postintubation sedation and radiology called for stat portable x-ray to confirm placement. I was then called back to bedside as RT was concern for possible cuff leak. Preparations made to perform an ET tube exchange using the bougie. I assisted the ICU [employer] with the exchange. VL again used as bougie inserted and the ET tube and ET tube withdrawn over the bougie and a new ET tube was placed. Cuff inflated, bougie withdrawn, without complication. Color change noted on capnography, condensat ion noted in the tube, bilateral breath sounds heard. Tube again secured at 23 cm at the lip. CXR confirmed good placement. Coding
[2023-01-25 02:23] LABS: Partial Thromboplastin Ratio 1.1; Partial Thromboplastin Time 32.4 Seconds (21.0-31.0); Prothrombin Time 11.1 Seconds (9.0-12.0)
[2023-01-25] MEDS ORDERED: Heparin IV Adult Wt-Based Low-Dose *NO* INITIAL Bolus Protocol IV STA (02:30)
[2023-01-25 02:44] LABS: iSTAT Allen Test Pass; iSTAT Art Bld Gas pCO2 Correct 43 mmHg (35-46); iSTAT Art Bld Gas pH Corrected 7.419 (7.35-7.45); iSTAT Arterial Blood Gas HCO3 28 meg/L (19-24); iSTAT Arterial Blood Gas pCO2 42 mmHg (35-46); iSTAT Arterial Blood Gas pH 7.43 (7.35-7.45); iSTAT Arterial Blood Gas pO2 199 mmHg (80-95); iSTAT Arterial Blood Gas pO2 C 202; iSTAT Carbon Dioxide 29 mmol/L (24-31); iSTAT FiO2 100 %; iSTAT Hematocrit 42 % (37-47); iSTAT Hemoglobin 14.3 g/dl (12.0-16.0); iSTAT Potassium 4.3 mmol/L (3.3-5.0); iSTAT Site Art Line; iSTAT Sodium 136 mmol/L (135-144)
[2023-01-25] MEDS: fentaNYL citrate 2,500 MCG/250 ML BAG IV SCH (02:53)
--- NOTE | 2023-01-25 03:21 | CT Scan Report ---
Exam(s): CT HEAD Without Contrast EXAM: CT Head Without Intravenous Contrast CLINICAL HISTORY: Seizure TECHNIQUE: Axial computed tomography images of the head/brain without intravenous contrast. CTDI is 36.12 mGy and DLP is 625.8 mGy-cm. Automated exposure control was utilized for the study. A dose lowering technique was utilized adhering to the principles of ALARA. COMPARISON: MRI brain 01/24/2023 FINDINGS: Brain: Loss of rock-white differentiation of the left insular ribbon consistent with patient's history of subacute infarct. Encephalomalacia of the right frontoparietal lobe. No intracranial hemorrhage, mass- effect or midline shift. Ventricles: Unremarkable. No ventriculomegaly. Bones/joints: Unremarkable. No acute fracture. Soft tissues: Unremarkable. Sinuses: Unremarkable as visualized. No acute sinusitis. Mastoid air cells: Unremarkable as visualized. No mastoid effusion. IMPRESSION: 1. Loss of rock-white differentiation of the left insular ribbon consistent with patient's history of subacute infarct. 2. No intracranial hemorrhage, mass-effect or midline shift. Electronically signed by: Colleen Knutson MD 01/25/23 03:21 AM
--- NOTE | 2023-01-25 03:30 | Procedure Note ---
Procedure Note Date of Service January 25, 2023 Note INTERNAL JUGULAR CENTRAL LINE PROCEDURE NOTE: Procedure: Internal Jugular Central Line Placement Proceduralist: Liam THOMPSON ([facility]-) Attending: Dr. KAY Indication: Central Drug Administration, Poor Venous Access, Multiple Lab Draws Necessary, etc. Anesthesia: [x]Lidocaine 1% Consent was verbally obtained from Manda Rossi at bedside. Indication, risks, and benefits were explained and she verbalized understanding and consented to proceed with placement. A time-out was completed verifying correct patient, procedure, site, positioning. Patients RIGHT Neck was cleansed and draped in the typical sterile fashion using ChloraPrep. The Internal Jugular Vein and Carotid Artery were identified using ultrasound. The superficial tissue was anesthetized using 5 mL of 1% lidocaine without epinephrine under direct visualization with the ultrasound. After adequate anesthetization was achieved, the Internal Jugular vein was cannulated under direct ultrasound guidance using an introducer needle on a syringe. Good venous blood return was maintained prior to removal of syringe from introducer needle. Using Seldinger Technique, a guide wire was advanced through the introducer needle without resistance, ectopy was noted and wire was pulled back slightly. The introducer needle was removed and ultrasound images were obtained of the guide wire within the Internal Jugular Vein. A small incision was made in penetrating fashion at the guide wire insertion site utilizing an 11 blade scalpel. The dilator was advanced to the vessel without resistance. The dilator was exchanged for the triple lumen catheter which was advanced into the vessel without resistance. The guide wire was removed intact from the catheter without issue. Claves were placed on each catheter tip with confirmation of good blood flow from each lumen. Each port was easily flushed with sterile saline. The catheter was placed at 17 cm and sutured in place. BioPatch was applied to the catheter and a sterile Tegaderm dressing was applied over the catheter with careful attention to sterility. Patient tolerated procedure well. No immediate complications were met. Post procedure x-ray was completed, placement was appropriate and no pn eumothorax was noted. Ultrasound was used for scouting of the vessels prior to as well as direct visualization, images were not saved to permanent record as emergent. Artery AND Vein visualized: YES Compressible Vein: YES Guidewire or Short Catheter seen in vein prior to dilation: YES Coding CPT Codes Tubes, Drains, and Vasc Access - Tubes, Drains, and Vasc Access: [id number] Insertion Of Non-tunneled Catheter Age 4 Yrs> ([id number]) [facility] [place] Procedure Codes (Charges) Tubes, Drains, and Vasc Access Procedure 1: Tubes, Drains, and Vasc Access: [id number] Insertion Of Non-tunneled Catheter Age 4 Yrs>
[2023-01-25] MEDS ORDERED: HEPARIN 25000 UNIT/500 ML D5W IV ONE (03:37)
[2023-01-25] MEDS: MAGNESIUM SULFATE / D5W 1 GM/100 ML BAG IV SCH ×3 (03:52→07:37)
[2023-01-25 03:53] LABS: Hematocrit (blood only) 37.5 % (37.0-47.0); Hemoglobin 12.7 g/dl (12.0-16.0); Mean Corpuscular Hemoglobin 31.1 pg (25.0-34.0); Mean Corpuscular Hgb Conc 33.9 g/dL (32.0-36.0); Mean Corpuscular Volume 91.9 fL (80.0-100.0); Mean Platelet Volume 9.7 fL (9.4-12.4); Platelet Count 254 K/uL (130-400); RDW Coefficient of Variation 13.5 % (11.5-14.5); RDW Standard Deviation 46.2 fL (36.4-46.3); Red Blood Count 4.08 M/uL (4.20-5.40); White Blood Count 10.99 K/ul (4.8-10.8)
[2023-01-25 04:14] LABS: BUN Creatinine Ratio 16.9 (10-20); Calcium 8.8 mg/dl (8.6-10.3); Creatinine Clr Calc Pharmacy 73.9 ml/min; Est GFR (African American) 77.2 ml/min; Est GFR (Non-African American) 66.6 ml/min; Magnesium 1.7 mg/dl (1.7-2.4); Phosphorus 2.6 mg/dl (2.5-4.9); Potassium 3.9 mmol/L (3.5-5.1)
[2023-01-25 04:18] LABS: Basophils # (auto) 0.02 K/uL (0.00-0.20); Basophils % (auto) 0.2 %; Eosinophils # (auto) 0.01 K/uL (0.00-0.50); Eosinophils % (auto) 0.1 %; Immature Granulocytes # (auto) 0.05 K/uL (0.01-0.20); Immature Granulocytes % (auto) 0.5 %; Lymphocytes # (auto) 0.44 K/uL (1.20-3.40); Monocytes # (auto) 0.49 K/uL (0.11-0.59); Monocytes % (auto) 4.5 %; Neutrophils # (auto) 9.98 K/uL (1.40-6.50); Neutrophils % (auto) 90.7 %
[2023-01-25] MEDS: HEPARIN SODIUM/DEXTROSE 25,000 UNITS/500 ML BAG IV SCH (04:27)
[2023-01-25] MEDS ORDERED: DEXTROSE 50% 50 ML SYRINGE IV PRN (04:30)
[2023-01-25] MEDS ORDERED: GLUCAGON FOR INJ 1 MG VIAL SQ PRN (04:30)
[2023-01-25] MEDS ORDERED: CARBOHYDRATES FOR HYPOGLYCEMIA PO PRN (04:30)
[2023-01-25] MEDS ORDERED: GLUCOSE 10 TAB/TUBE PO PRN (04:30)
[2023-01-25] MEDS ORDERED: GLUCOSE 40% GEL 15 GM TUBE PO PRN (04:30)
[2023-01-25 04:31] LABS: Appearance Urine Clear (Clear); Bacteria Urine Automated Negative (Negative); Bilirubin Urine Negative (Negative); Blood Urine Negative (Negative); Color Urine Yellow; Glucose Urine UA Trace (Negative); Ketones Urine Negative (Negative); Leukocyte Esterase Urine Negative (Negative); Nitrite Urine Negative (Negative); Protein Urine 1+ (Negative); RBC Urine Automated 0-4 /hpf (0-4); Specific Gravity Urine 1.013 (1.000-1.030); Urobilinogen Urine Negative (Negative); WBC Urine Automated 0 /hpf (0-5); pH Urine 5.5 (4.5-7.5)
[2023-01-25 05:00] LABS: iSTAT Art Bld Gas pCO2 Correct 37 mmHg (35-46); iSTAT Art Bld Gas pH Corrected 7.471 (7.35-7.45); iSTAT Arterial Blood Gas HCO3 27 meg/L (19-24); iSTAT Arterial Blood Gas pCO2 36 mmHg (35-46); iSTAT Arterial Blood Gas pH 7.48 (7.35-7.45); iSTAT Arterial Blood Gas pO2 93 mmHg (80-95); iSTAT Arterial Blood Gas pO2 C 98; iSTAT Carbon Dioxide 28 mmol/L (24-31); iSTAT FiO2 60 %; iSTAT Hematocrit 41 % (37-47); iSTAT Hemoglobin 13.9 g/dl (12.0-16.0); iSTAT Potassium 3.6 mmol/L (3.3-5.0); iSTAT Site Art Line; iSTAT Sodium 136 mmol/L (135-144)
[2023-01-25] MEDS: ICU Protocol for HYPERglycemia SCH ×2 (07:52→14:19)
--- NOTE | 2023-01-25 07:52 | Hospitalist Progress Note ---
Date of Service January 25, 2023 Assessment & Plan (1) Acute CVA (cerebrovascular accident): Plan: 67 yo F with type 2 diabetes, hyperlipidemia, asthma- COPD overlap syndrome, obstructive sleep apnea, persistent atrial fibrillation, nonischemic cardiomyopathy, history of CVA, mitral regurgitation, atherosclerosis of coronary artery, morbid obesity, migraine without aura, depression with anxiety presents with strokelike symptoms. Acute CVA Dysarthria Initial workup with CT scan of head and CTA head and neck unremarkable MRI brain - IMPRESSION: 1. Scattered areas of small infarcts involving the insular region, left posterior centrum semiovale and left frontal and parietal cortex. 2. No intracranial hemorrhage. 3. Underlying microangiopathic white matter disease. Echo obtained Speech evaluation Neurology consulted - ok to stop plavix and do heparin bridge to coumadin Cardiology consulted - pt w/ pAfib, hx of CVAs on eliquis - plan to transition to coumadin w/ heparin bridge Stop Eliquis 01/25 Overnight pt had seizure-like episode, was intubated, started on pressors, currently pt is in ICU. Brain MRI repeated today FINDINGS: Increase in size in the acute to subacute left MCA territory infarct, primarily involving the left frontotemporal region. This infarct measures up to 4 cm in size. A orogastric tube is partially visualized. Fluid levels within the sphenoid sinuses and nasopharynx are noted. The mastoid air cells are clear. The major vascular flow-voids at the skull base are well-maintained. There is no mass, hematoma, midline shift. Mild atrophic changes again noted within the brain. There is an old right MCA territory infarct again noted. Vasogenic edema within the left MCA territory infarct has also progressed. IMPRESSION: Interval progression of the now moderate sized acute to subacute left MCA territory infarct as described above. No midline shift or intracranial hemorrhage identified at this time. Discussed w/ Dr. Patricia Campbell per ICU team - pt remains in critical condition Bradycardia History of atrial fibrillation - cont. amiodarone and metoprolol succinate - discussed w/ cardiology echo obtained and reviewed Monitor on telemetry 01/25 Pt now in ICU on pressor support. Cardiology continues to follow closely - pt may need a pacemaker. History of CVA Continue statin Hold Eliquis transition to coumadin, as above Diabetes On Mounjaro Hold metformin Insulin sliding scale Follow blood sugars and Current HbA1c level 6.1% History of asthma/COPD Continue home inhalers Hypertension - cont. metoprolol succinate Continue losartan Permissive hypertension Now in ICU on pressor support Closely cont. to monitor Obstructive sleep apnea CPAP nightly Depression with anxiety On Wellbutrin and amitriptyline Hyperlipidemia On statin Follow lipid profile DVT prophylaxis SCDs , heparin, per ICU Disposition: ICU Full code Admission and Anticipated Discharge Date Admission Date: January 23, 2023 Subjective Pt seen in follow up of CVA Overnight pt had seizure-like episode, was intubated, started on pressors, currently pt is in ICU. Family presents at the bedside. ROS no able to obtain. Seen moving LLE extremity. Pupils round small and equal. Pt had repeat brain MRI done today and discussed w/ Dr. Gomez over the phone. Review of Systems Review of Systems: Unobtainable due to cognitive status and Unobtainable due to endotracheal tube Physical Exam Physical Exam: General- elderly obese, intubated Head- atraumatic Eyes- pupils round small equal Lungs- clear to auscultation Heart- regular rhythm; bradycardic, no murmur Abdomen- normal bowel sounds, soft, obese Extremities- trace pretibial edema, no erythema seen. Neuro- limited exam, pt intubated, sedated, seen moving LLE extremity, pupils are small round equal Skin- warm & dry Results & Data Results & Data Vital Signs (Past 12 Hours) Vital Signs Temp Pulse Pulse Resp BP BP Pulse Ox 01/25/23 07:39 56 L 20 96 01/25/23 06:00 126/60 01/25/23 06:00 37.5 C 58 L 20 95 01/25/23 05:31 01/25/23 05:26 20 01/25/23 05:00 142/65 H 01/25/23 05:00 37.7 C H 60 20 96 01/25/23 04:00 38.0 C H 50 L 24 97 01/25/23 04:00 98/57 L 01/25/23 03:45 117/62 01/25/23 03:45 38.1 C H 51 L 24 99 01/25/23 03:30 126/68 01/25/23 03:30 38.1 C H 61 24 98 01/25/23 03:01 119/62 01/25/23 03:01 38.3 C H 64 24 97 01/25/23 03:00 01/25/23 03:00 38.3 C H 63 24 96 01/25/23 02:50 01/25/23 02:45 129/59 L 01/25/23 02:45 38.3 C H 63 24 98 01/25/23 02:40 38.3 C H 64 24 99 01/25/23 02:39 67 24 100 01/25/23 02:35 38.3 C H 66 22 100 01/25/23 02:30 165/63 H 01/25/23 02:30 67 21 100 01/25/23 02:25 68 23 100 01/25/23 02:20 37.7 C H 68 24 100 01/25/23 02:15 69 18 100 01/25/23 02:15 154/67 H 01/25/23 02:10 71 22 100 01/25/23 02:05 71 24 99 01/25/23 02:03 151/66 H 01/25/23 02:03 73 14 01/25/23 02:00 74 24 96 01/25/23 01:58 75 15 97 01/25/23 01:35 63 16 90 01/25/23 01:33 68/26 L 01/25/23 01:33 63 26 H 91 01/25/23 01:32 75/24 L 01/25/23 01:32 58 L 7 L 90 01/25/23 01:31 59/26 L 01/25/23 01:31 57 L 14 89 L 01/25/23 01:30 51/23 L 01/25/23 01:30 49 L 26 H 89 L 01/25/23 01:29 65/33 L 01/25/23 01:29 51 L 18 90 01/25/23 01:27 61/32 L 01/25/23 01:27 50 L 10 L 87 L 01/25/23 01:25 46 L 11 L 88 L 01/25/23 01:20 36 L 17 94 01/25/23 01:16 83/36 L 01/25/23 01:16 35 L 6 L 92 01/25/23 01:15 35 L 6 L 93 01/25/23 01:10 112/44 L 01/25/23 01:10 35 L 3 L 95 01/25/23 01:05 38 L 4 L 95 01/25/23 01:00 41 L 27 H 91 01/25/23 01:00 167/79 H 01/25/23 00:59 40 L 21 87 L 01/25/23 00:35 58 L 63 H 01/25/23 00:30 62 46 H 01/24/23 23:45 63 26 H 90 01/24/23 23:19 37.5 C 79 18 129/82 91 01/24/23 21:55 65 O2 Del Method FiO2 01/25/23 07:39 40 01/25/23 06:00 01/25/23 06:00 Mechanical Vent 50 01/25/23 05:31 50 01/25/23 05:26 50 01/25/23 05:00 01/25/23 05:00 Mechanical Vent 50 01/25/23 04:00 Mechanical Vent 01/25/23 04:00 01/25/23 03:45 01/25/23 03:45 Mechanical Vent 01/25/23 03:30 01/25/23 03:30 Mechanical Vent 01/25/23 03:01 01/25/23 03:01 Mechanical Vent 01/25/23 03:00 Mechanical Vent 60 01/25/23 03:00 Mechanical Vent 01/25/23 02:50 60 01/25/23 02:45 01/25/23 02:45 01/25/23 02:40 01/25/23 02:39 100 01/25/23 02:35 01/25/23 02:30 01/25/23 02:30 01/25/23 02:25 01/25/23 02:20 Mechanical Vent 01/25/23 02:15 01/25/23 02:15 01/25/23 02:10 01/25/23 02:05 01/25/23 02:03 01/25/23 02:03 01/25/23 02:00 01/25/23 01:58 01/25/23 01:35 01/25/23 01:33 01/25/23 01:33 01/25/23 01:32 01/25/23 01:32 01/25/23 01:31 01/25/23 01:31 01/25/23 01:30 01/25/23 01:30 01/25/23 01:29 01/25/23 01:29 01/25/23 01:27 01/25/23 01:27 01/25/23 01:25 01/25/23 01:20 01/25/23 01:16 01/25/23 01:16 01/25/23 01:15 01/25/23 01:10 01/25/23 01:10 01/25/23 01:05 01/25/23 01:00 01/25/23 01:00 01/25/23 00:59 01/25/23 00:35 01/25/23 00:30 01/24/23 23:45 01/24/23 23:19 CPAP 01/24/23 21:55 Laboratory Results 01/25/23 01/25/23 01/25/23 Range/Units 04:47 03:35 02:52 WBC 10.99 H (4.8-10.8) K/ul RBC 4.08 L (4.20-5.40) M/uL Hgb 12.7 (12.0-16.0) g/dl POC Hgb 13.9 (12.0-16.0) g/dl Hct 37.5 (37.0-47.0) % POC Hct 41 (37-47) % MCV 91.9 (80.0-100.0) fL MCH 31.1 (25.0-34.0) pg MCHC 33.9 (32.0-36.0) g/dL RDW Std Deviation 46.2 (36.4-46.3) fL RDW Coeff of Yeyo 13.5 (11.5-14.5) % Plt Count 254 (130-400) K/uL MPV 9.7 (9.4-12.4) fL Immature Gran % (Auto) 0.5 % Neut % (Auto) 90.7 % Lymph % (Auto) 4.0 % [place]bour % (Auto) 4.5 % Eos % (Auto) 0.1 % Baso % (Auto) 0.2 % Neut # (Auto) 9.98 H (1.40-6.50) K/uL Lymph # (Auto) 0.44 L (1.20-3.40) K/uL [place]bour # (Auto) 0.49 (0.11-0.59) K/uL Eos # (Auto) 0.01 (0.00-0.50) K/uL Baso # (Auto) 0.02 (0.00-0.20) K/uL Immature Gran # (Auto) 0.05 (0.01-0.20) K/uL PT 11.0 (9.0-12.0) Seconds INR 1.0 (0.9-1.1) APTT (21.0-31.0) Seconds PTT Ratio Sample Site Art Line POC pH 7.48 H (7.35-7.45) POC pCO2 36 (35-46) mmHg POC pO2 93 (80-95) mmHg POC HCO3 27 H (19-24) temi/L POC Total CO2 28 (24-31) mmol/L POC Base Excess 3.0 H (-9-1.8) temi/L ABG pH (Temp Correct) 7.471 H (7.35-7.45) ABG pCO2 (Temp Corrct 37 (35-46) mmHg POC ABG pO2 at Pt Temp 98 POC ABG O2 Sat 98.0 H (90-95) % Patrice Test NA O2 Delivery Device Ventilator POC O2 Rate 24 POC FiO2 60 % Tidal Volume 400 PEEP 8 POC Sodium 136 (135-144) mmol/L Sodium 136 (136-145) mmol/L POC Potassium 3.6 (3.3-5.0) mmol/L Potassium 3.9 (3.5-5.1) mmol/L Chloride 100 (98-107) mmol/L Carbon Dioxide 27 (21-32) mmol/L Anion Gap 9 (3-11) BUN 15 (6-23) mg/dl Creatinine 0.89 (0.6-1.2) mg/dl Est Cr Clr Drug Dosing 73.9 ml/min Est GFR ( Amer) 77.2 ml/min Est GFR (Non-Af Amer) 66.6 ml/min BUN/Creatinine Ratio 16.9 (10-20) Glucose 217 H (70-99(Fasting)) mg/dl POC Glucose (70-99) mg/dl Lactate 1.8 (0.4-2.0) mmol/L Calcium 8.8 (8.6-10.3) mg/dl Ionized Calcium (1.12-1.32) mmol/L Phosphorus 2.6 D (2.5-4.9) mg/dl Magnesium 1.7 (1.7-2.4) mg/dl Total Bilirubin (0.2-1.0) mg/dl AST (13-39) U/L ALT (7-52) U/L Alkaline Phosphatase (34-104) U/L Total Protein (6.0-8.3) gm/dl Albumin (3.4-5.0) gm/dl Globulin (2.5-4.0) gm/dl Albumin/Globulin Ratio (0.9-2) Triglycerides (0-150) mg/dl Cholesterol (0-200) mg/dl LDL Cholesterol, Calc mg/dl VLDL Cholesterol, Calc (0-30) mg/dl HDL Cholesterol mg/dl Cholesterol/HDL Ratio (0-5) Urine Color Yellow Urine Appearance Clear (Clear) Urine pH 5.5 (4.5-7.5) Ur Specific [place] 1.013 (1.000-1.030) Urine Protein 1+ H (Negative) Urine Glucose (UA) Trace H (Negative) Urine Ketones Negative (Negative) Urine Blood Negative (Negative) Urine Nitrite Negative (Negative) Urine Bilirubin Negative (Negative) Urine Urobilinogen Negative (Negative) Ur Leukocyte Esterase Negative (Negative) Urine WBC (Auto) 0 (0-5) /hpf Urine RBC (Auto) 0-4 (0-4) /hpf U Hyaline Cast (Auto) 1-5 (0-5) /lpf U Epithel Cells (Auto) 5-10 H (0-5) /lpf Urine Bacteria (Auto) Negative (Negative) Blood Type Antibody Screen 01/25/23 01/25/23 01/24/23 Range/Units 02:32 01:26 23:36 WBC 11.71 H (4.8-10.8) K/ul RBC 4.24 (4.20-5.40) M/uL Hgb 13.2 (12.0-16.0) g/dl POC Hgb 14.3 (12.0-16.0) g/dl Hct 40.8 (37.0-47.0) % POC Hct 42 (37-47) % MCV 96.2 (80.0-100.0) fL MCH 31.1 (25.0-34.0) pg MCHC 32.4 (32.0-36.0) g/dL RDW Std Deviation 48.4 H (36.4-46.3) fL RDW Coeff of Yeyo 13.6 (11.5-14.5) % Plt Count 266 (130-400) K/uL MPV 9.8 (9.4-12.4) fL Immature Gran % (Auto) 0.3 % Neut % (Auto) 88.0 % Lymph % (Auto) 5.7 % Barbour % (Auto) 5.6 % Eos % (Auto) 0.3 % Baso % (Auto) 0.1 % Neut # (Auto) 10.30 H (1.40-6.50) K/uL Lymph # (Auto) 0.67 L (1.20-3.40) K/uL Barbour # (Auto) 0.66 H (0.11-0.59) K/uL Eos # (Auto) 0.03 (0.00-0.50) K/uL Baso # (Auto) 0.01 (0.00-0.20) K/uL Immature Gran # (Auto) 0.04 (0.01-0.20) K/uL PT 11.1 (9.0-12.0) Seconds INR 1.0 (0.9-1.1) APTT 32.4 H 48.8 H* (21.0-31.0) Seconds PTT Ratio 1.1 1.7 Sample Site Art Line POC pH 7.43 (7.35-7.45) POC pCO2 42 (35-46) mmHg POC pO2 199 H (80-95) mmHg POC HCO3 28 H (19-24) temi/L POC Total CO2 29 (24-31) mmol/L POC Base Excess 3.0 H (-9-1.8) temi/L ABG pH (Temp Correct) 7.419 (7.35-7.45) ABG pCO2 (Temp Corrct 43 (35-46) mmHg POC ABG pO2 at Pt Temp 202 POC ABG O2 Sat 100.0 H (90-95) % Patrice Test Pass O2 Delivery Device Ventilator POC O2 Rate 24 POC FiO2 100 % Tidal Volume 400 PEEP 12 POC Sodium 136 (135-144) mmol/L Sodium 135 L (136-145) mmol/L POC Potassium 4.3 (3.3-5.0) mmol/L Potassium 4.4 (3.5-5.1) mmol/L Chloride 100 (98-107) mmol/L Carbon Dioxide 25 (21-32) mmol/L Anion Gap 10 (3-11) BUN 15 (6-23) mg/dl Creatinine 1.03 (0.6-1.2) mg/dl Est Cr Clr Drug Dosing 63.8 ml/min Est GFR ( Amer) 64.7 ml/min Est GFR (Non-Af Amer) 55.8 ml/min BUN/Creatinine Ratio 14.6 (10-20) Glucose 239 H (70-99(Fasting)) mg/dl POC Glucose (70-99) mg/dl Lactate 2.7 H* (0.4-2.0) mmol/L Calcium 8.9 (8.6-10.3) mg/dl Ionized Calcium 1.12 (1.12-1.32) mmol/L Phosphorus 4.4 (2.5-4.9) mg/dl Magnesium 1.7 (1.7-2.4) mg/dl Total Bilirubin 0.7 (0.2-1.0) mg/dl AST 23 (13-39) U/L ALT 27 (7-52) U/L Alkaline Phosphatase 49 (34-104) U/L Total Protein 6.8 (6.0-8.3) gm/dl Albumin 4.0 (3.4-5.0) gm/dl Globulin 2.8 (2.5-4.0) gm/dl Albumin/Globulin Ratio 1.4 (0.9-2) Triglycerides (0-150) mg/dl Cholesterol (0-200) mg/dl LDL Cholesterol, Calc mg/dl VLDL Cholesterol, Calc (0-30) mg/dl HDL Cholesterol mg/dl Cholesterol/HDL Ratio (0-5) Urine Color Urine Appearance (Clear) Urine pH (4.5-7.5) Ur Specific [place] (1.000-1.030) Urine Protein (Negative) Urine Glucose (UA) (Negative) Urine Ketones (Negative) Urine Blood (Negative) Urine Nitrite (Negative) Urine Bilirubin (Negative) Urine Urobilinogen (Negative) Ur Leukocyte Esterase (Negative) Urine WBC (Auto) (0-5) /hpf Urine RBC (Auto) (0-4) /hpf U Hyaline Cast (Auto) (0-5) /lpf U Epithel Cells (Auto) (0-5) /lpf Urine Bacteria (Auto) (Negative) Blood Type A Positive Antibody Screen NEGATIVE 01/24/23 01/24/23 01/24/23 Range/Units 19:54 17:29 16:21 WBC (4.8-10.8) K/ul RBC (4.20-5.40) M/uL Hgb (12.0-16.0) g/dl POC Hgb (12.0-16.0) g/dl Hct (37.0-47.0) % POC Hct (37-47) % MCV (80.0-100.0) fL MCH (25.0-34.0) pg MCHC (32.0-36.0) g/dL RDW Std Deviation (36.4-46.3) fL RDW Coeff of Yeyo (11.5-14.5) % Plt Count (130-400) K/uL MPV (9.4-12.4) fL Immature Gran % (Auto) % Neut % (Auto) % Lymph % (Auto) % Barbour % (Auto) % Eos % (Auto) % Baso % (Auto) % Neut # (Auto) (1.40-6.50) K/uL Lymph # (Auto) (1.20-3.40) K/uL Barbour # (Auto) (0.11-0.59) K/uL Eos # (Auto) (0.00-0.50) K/uL Baso # (Auto) (0.00-0.20) K/uL Immature Gran # (Auto) (0.01-0.20) K/uL PT (9.0-12.0) Seconds INR (0.9-1.1) APTT 48.6 H* (21.0-31.0) Seconds PTT Ratio 1.7 Sample Site POC pH (7.35-7.45) POC pCO2 (35-46) mmHg POC pO2 (80-95) mmHg POC HCO3 (19-24) temi/L POC Total CO2 (24-31) mmol/L POC Base Excess (-9-1.8) temi/L ABG pH (Temp Correct) (7.35-7.45) ABG pCO2 (Temp Corrct (35-46) mmHg POC ABG pO2 at Pt Temp POC ABG O2 Sat (90-95) % Patrice Test O2 Delivery Device POC O2 Rate POC FiO2 % Tidal Volume PEEP POC Sodium (135-144) mmol/L Sodium (136-145) mmol/L POC Potassium (3.3-5.0) mmol/L Potassium (3.5-5.1) mmol/L Chloride (98-107) mmol/L Carbon Dioxide (21-32) mmol/L Anion Gap (3-11) BUN (6-23) mg/dl Creatinine (0.6-1.2) mg/dl Est Cr Clr Drug Dosing ml/min Est GFR ( Amer) ml/min Est GFR (Non-Af Amer) ml/min BUN/Creatinine Ratio (10-20) Glucose (70-99(Fasting)) mg/dl POC Glucose 105 H 107 H (70-99) mg/dl Lactate (0.4-2.0) mmol/L Calcium (8.6-10.3) mg/dl Ionized Calcium (1.12-1.32) mmol/L Phosphorus (2.5-4.9) mg/dl Magnesium (1.7-2.4) mg/dl Total Bilirubin (0.2-1.0) mg/dl AST (13-39) U/L ALT (7-52) U/L Alkaline Phosphatase (34-104) U/L Total Protein (6.0-8.3) gm/dl Albumin (3.4-5.0) gm/dl Globulin (2.5-4.0) gm/dl Albumin/Globulin Ratio (0.9-2) Triglycerides (0-150) mg/dl Cholesterol (0-200) mg/dl LDL Cholesterol, Calc mg/dl VLDL Cholesterol, Calc (0-30) mg/dl HDL Cholesterol mg/dl Cholesterol/HDL Ratio (0-5) Urine Color Urine Appearance (Clear) Urine pH (4.5-7.5) Ur Specific [place] (1.000-1.030) Urine Protein (Negative) Urine Glucose (UA) (Negative) Urine Ketones (Negative) Urine Blood (Negative) Urine Nitrite (Negative) Urine Bilirubin (Negative) Urine Urobilinogen (Negative) Ur Leukocyte Esterase (Negative) Urine WBC (Auto) (0-5) /hpf Urine RBC (Auto) (0-4) /hpf U Hyaline Cast (Auto) (0-5) /lpf U Epithel Cells (Auto) (0-5) /lpf Urine Bacteria (Auto) (Negative) Blood Type Antibody Screen 01/24/23 01/24/23 01/24/23 Range/Units 11: 08:59 06:35 WBC (4.8-10.8) K/ul RBC (4.20-5.40) M/uL Hgb (12.0-16.0) g/dl POC Hgb (12.0-16.0) g/dl Hct (37.0-47.0) % POC Hct (37-47) % MCV (80.0-100.0) fL MCH (25.0-34.0) pg MCHC (32.0-36.0) g/dL RDW Std Deviation (36.4-46.3) fL RDW Coeff of Yeyo (11.5-14.5) % Plt Count (130-400) K/uL MPV (9.4-12.4) fL Immature Gran % (Auto) % Neut % (Auto) % Lymph % (Auto) % [place] % (Auto) % Eos % (Auto) % Baso % (Auto) % Neut # (Auto) (1.40-6.50) K/uL Lymph # (Auto) (1.20-3.40) K/uL [place] # (Auto) (0.11-0.59) K/uL Eos # (Auto) (0.00-0.50) K/uL Baso # (Auto) (0.00-0.20) K/uL Immature Gran # (Auto) (0.01-0.20) K/uL PT 11.4 (9.0-12.0) Seconds INR 1.0 (0.9-1.1) APTT 28.8 (21.0-31.0) Seconds PTT Ratio 1.0 Sample Site POC pH (7.35-7.45) POC pCO2 (35-46) mmHg POC pO2 (80-95) mmHg POC HCO3 (19-24) temi/L POC Total CO2 (24-31) mmol/L POC Base Excess (-9-1.8) temi/L ABG pH (Temp Correct) (7.35-7.45) ABG pCO2 (Temp Corrct (35-46) mmHg POC ABG pO2 at Pt Temp POC ABG O2 Sat (90-95) % Patrice Test O2 Delivery Device POC O2 Rate POC FiO2 % Tidal Volume PEEP POC Sodium (135-144) mmol/L Sodium 138 (136-145) mmol/L POC Potassium (3.3-5.0) mmol/L Potassium 4.0 (3.5-5.1) mmol/L Chloride 104 (98-107) mmol/L Carbon Dioxide 25 (21-32) mmol/L Anion Gap 9 (3-11) BUN 17 (6-23) mg/dl Creatinine 0.74 (0.6-1.2) mg/dl Est Cr Clr Drug Dosing 88.8 ml/min Est GFR ( Amer) 96.5 ml/min Est GFR (Non-Af Amer) 83.2 ml/min BUN/Creatinine Ratio 23.0 H (10-20) Glucose 101 H (70-99(Fasting)) mg/dl POC Glucose 119 H (70-99) mg/dl Lactate (0.4-2.0) mmol/L Calcium 9.5 (8.6-10.3) mg/dl Ionized Calcium (1.12-1.32) mmol/L Phosphorus (2.5-4.9) mg/dl Magnesium (1.7-2.4) mg/dl Total Bilirubin (0.2-1.0) mg/dl AST (13-39) U/L ALT (7-52) U/L Alkaline Phosphatase (34-104) U/L Total Protein (6.0-8.3) gm/dl Albumin (3.4-5.0) gm/dl Globulin (2.5-4.0) gm/dl Albumin/Globulin Ratio (0.9-2) Triglycerides 103 (0-150) mg/dl Cholesterol 204 H (0-200) mg/dl LDL Cholesterol, Calc 105 mg/dl VLDL Cholesterol, Calc 21 (0-30) mg/dl HDL Cholesterol 78 mg/dl Cholesterol/HDL Ratio 2.6 (0-5) Urine Color Urine Appearance (Clear) Urine pH (4.5-7.5) Ur Specific [place] (1.000-1.030) Urine Protein (Negative) Urine Glucose (UA) (Negative) Urine Ketones (Negative) Urine Blood (Negative) Urine Nitrite (Negative) Urine Bilirubin (Negative) Urine Urobilinogen (Negative) Ur Leukocyte Esterase (Negative) Urine WBC (Auto) (0-5) /hpf Urine RBC (Auto) (0-4) /hpf U Hyaline Cast (Auto) (0-5) /lpf U Epithel Cells (Auto) (0-5) /lpf Urine Bacteria (Auto) (Negative) Blood Type Antibody Screen Medications Administered Current Inpatient Medications Acetaminophen (Acetaminophen 325 Mg Tab) 650 mg PO Q4H PRN PRN Reason: Fever/Mild Pain (Pain 1,2,3) Stop: 02/24/23 02:41 Amiodarone HCl (Amiodarone 200 Mg Tab) 200 mg PO BIDM [facility] Stop: 02/23/23 16:59 Last Admin: 01/24/23 17:38 Dose: 200 mg Atorvastatin Calcium (Atorvastatin 40 Mg Tab) 80 mg PO QAM [facility] Stop: 02/24/23 08:59 Bupropion HCl (Bupropion Xl 300 Mg Tabcr) 300 mg PO DAILY [facility] Stop: 02/23/23 08:59 Last Admin: 01/24/23 07:38 Dose: 300 mg Dextrose (Dextrose 50% 50 Ml Syringe) 25 - 50 ml IV UD PRN; Protocol PRN Reason: Hypoglycemia Protocol Stop: 02/23/23 00:12 Fentanyl Citrate (Fentanyl Bolus From Bag) 50 mcg IV Q60M PRN PRN Reason: Pain or Agitation Stop: 02/08/23 02:41 Fluticasone Furoate (Fluticasone Furoate 200mcg 14 Puffs/Inhaler) 1 puffs INH DAILY [facility] Stop: 02/23/23 08:59 Last Admin: 01/24/23 09:13 Dose: 1 puffs Gabapentin (Gabapentin 100 Mg Cap) 100 mg PO BID [facility] Stop: 02/23/23 08:59 Last Admin: 01/24/23 20:00 Dose: 100 mg Glucagon (Glucagon For Inj 1 Mg Vial) 1 mg SQ UD PRN; Protocol PRN Reason: Hypoglycemia Protocol Stop: 02/23/23 00:12 Glucose (Glucose 10 Tab/Tube) 4 - 8 tab PO UD PRN; Protocol PRN Reason: Hypoglycemia Treatment Stop: 02/23/23 00:12 Glucose (Glucose 40% Gel 15 Gm Tube) 15 - 30 gm PO UD PRN; Protocol PRN Reason: Hypoglycemia Protocol Stop: 02/23/23 00:12 Dopamine HCl/Dextrose (Dopamine / D5w) 400 mg in 250 mls @ 19.575 mls/hr IV .[id number] [facility]; Protocol Stop: 02/24/23 01:29 Last Titration: 01/25/23 06:22 Dose: 5 mcg/kg/min, 19.6 mls/hr Norepinephrine Bitartrate (Levophed/D5w) 4 mg in 250 mls @ 7.83 mls/hr IV .Q24H [facility]; Protocol Stop: 02/24/23 01:59 Last Titration: 01/25/23 04:46 Dose: 0.02 mcg/kg/min, 7.8 mls/hr Propofol (Diprivan) 1,000 mg in 100 mls @ 18.792 mls/hr IV .Q5H20M [facility]; Protocol Stop: 01/28/23 02:29 Last Titration: 01/25/23 04:47 Dose: 30 mcg/kg/min, 18.8 mls/hr Heparin Sodium/Dextrose (Heparin Sodium/Dextrose) 25,000 units in 500 mls @ 18 mls/hr IV .Q24H LYLY; Protocol Stop: 02/24/23 02:44 Last Admin: 01/25/23 04:27 Dose: 900 units/hr, 18 mls/hr Fentanyl Citrate (Fentanyl Citrate) 2,500 mcg in 250 mls @ 5 mls/hr IV .Q50H LYLY; Protocol Stop: 02/08/23 02:44 Last Titration: 01/25/23 06:21 Dose: 50 mcg/hr, 5 mls/hr Magnesium Sulfate/Dextrose (Magnesium Sulfate / D5w) 1 gm in 100 mls @ 50 mls/hr IV Q2H LYLY Stop: 01/25/23 08:44 Last Admin: 01/25/23 07:37 Dose: 50 mls/hr Insulin Aspart (Insulin Aspart Per Unit Charge) 0 units SC ACHS LYLY Stop: 02/23/23 20:59 Last Admin: 01/24/23 19:56 Dose: Not Given Losartan Potassium (Losartan Potassium 50 Mg Tab) 50 mg PO DAILY LYLY Stop: 02/23/23 08:59 Last Admin: 01/24/23 07:37 Dose: 50 mg Metoprolol Succinate (Metoprolol Succ 50mg Ext Rel Tab) 100 mg PO BID LYLY Stop: 02/23/23 20:59 Last Admin: 01/24/23 20:00 Dose: 100 mg Miscellaneous (Carbohydrates For Hypoglycemia ) 15 - 30 gm PO UD PRN PRN Reason: Hypoglycemia Protocol Stop: 02/23/23 00:12 Miscellaneous (Icu Protocol For Hyperglycemia) 1 each N/A ACHS LYLY Stop: 01/27/23 07:29 Miscellaneous Information (Pharmacist Discharge Med Rec Consult) 1 each N/A UD PRN PRN Reason: Consult Stop: 02/23/23 00:12 Montelukast Sodium (Montelukast Sodium 10 Mg Tablet) 10 mg PO DAILY LYLY Stop: 02/23/23 08:59 Last Admin: 01/24/23 07:38 Dose: 10 mg Nitroglycerin (Nitroglycerin Sl 0.4 Mg/Tab Tab) 0.4 mg SL Q5M PRN PRN Reason: Chest Pain Stop: 02/23/23 00:12 Nortriptyline HCl (Nortriptyline Hcl 25 Mg Cap) 25 mg PO HS LYLY Stop: 02/23/23 20:59 Last Admin: 01/24/23 20:00 Dose: 25 mg Propofol (Propofol Bolus From Bag) 20 mg IV Q5M PRN PRN Reason: Sedation Stop: 01/28/23 02:16 Last Admin: 01/25/23 02:00 Dose: 20 mg Umeclidinium/Vilanterol (Umeclidinium/Vilanterol 62.5/25mcg 7 Puffs/Inhaler) 1 puffs INH DAILY LYLY Stop: 02/23/23 08:59 Last Admin: 01/24/23 09:13 Dose: 1 puffs Zinc Acetate/Diphenhydramine (Diphenhydramine 2%/Zinc 0.1% Cream 28.4gm Tube) 1 appln EXT BID PRN PRN Reason: Itching Stop: 02/23/23 05:55 Last Admin: 01/24/23 20:02 Dose: 1 appln
--- NOTE | 2023-01-25 07:56 | XRay Report ---
XR chest 1V portable HISTORY: post intubation eval ETT and OGT placement COMPARISON: Chest 08/15/2022. FINDINGS: Endotracheal tube terminates approximately 1.6 cm from the lewis. Nasogastric tube termina melo below the diaphragm. The tip is not included on this study. No pneumothorax. No pleural effusions . The cardiac silhouette remains enlarged. There is diffuse interstitial/vascular thickening consiste nt with mild congestive change. No new focal lung consolidations identified. IMPRESSION: 1. The endotracheal tube terminates 1.5 cm from the lewis. 2. Nasogastric tube terminates below the diaphragm. 3. Cardiomegaly and mild congestive change persists. ACT 112: Negative or not required by law. Electronically signed by: Alexis Herzog M.D. 01/25/2023 7:54 AM
--- NOTE | 2023-01-25 08:01 | XRay Report ---
XR chest 1V portable HISTORY: s/p central line placement COMPARISON: Chest 01/25/2023. FINDINGS: Interval placement of a right jugular central venous catheter which terminates in the SVC. Endotracheal tube terminates 2.5 cm from the lewis. Nasogastric tube terminates below the diaphragm. The tip is not included on this study. No pleural effusions. Cardiomegaly and mild congestive change persists. Left basilar linear densities favor subsegmental atelectasis. There is a deep left-sided s ulcus with lucency at the left lung apex. This is likely positional. A small left-sided pneumothorax could also have a similar appearance. Therefore, repeat chest x-ray is recommended for further evalua tion. IMPRESSION: 1. Satisfactory support line placement. 2. There is a deep left-sided sulcus with lucency at the left lung apex. This is likely positional. A small left-sided pneumothorax could also have a similar appearance. Therefore, repeat chest x-ray is recommended for further evaluation. 3. This report was called/faxed to the referring physician following dictation. ACT 112: Negative or not required by law. Electronically signed by: Alexis Herzog M.D. 01/25/2023 7:59 AM
--- NOTE | 2023-01-25 08:13 | Electrocardiogram Report ---
Test Reason : Blood Pressure : / mmHG Vent. Rate : 059 BPM Atrial Rate : 059 BPM P-R Int : 202 ms QRS Dur : 112 ms QT Int : 570 ms P-R-T Axes : 083 079 052 degrees QTc Int : 564 ms Sinus bradycardia Prolonged QT Abnormal ECG When compared with ECG of 23-JAN-2023 21:25, Premature atrial complexes no longer present Confirmed by Garret Manzo ([id number]) on 01/25/2023 8:13:23 AM Referred By: REFERRED SELF Confirmed By:Garret Manzo
--- NOTE | 2023-01-25 08:13 | Electrocardiogram Report ---
Test Reason : Blood Pressure : / mmHG Vent. Rate : 049 BPM Atrial Rate : 049 BPM P-R Int : 186 ms QRS Dur : 108 ms QT Int : 542 ms P-R-T Axes : 053 095 022 degrees QTc Int : 489 ms Sinus bradycardia with Premature atrial complexes in a bigeminal pattern Rightward axis Minimal voltage criteria for LVH, may be normal variant ( [place] product ) Borderline ECG When compared with ECG of 23-JAN-2023 19:55, Frequent Premature atrial complexes now present Confirmed by Garret Manzo ([id number]) on 01/25/2023 8:13:09 AM Referred By: REFERRED SELF Confirmed By:Garret Manzo
--- NOTE | 2023-01-25 08:14 | Electrocardiogram Report ---
Test Reason : Blood Pressure : / mmHG Vent. Rate : 057 BPM Atrial Rate : 057 BPM P-R Int : 206 ms QRS Dur : 110 ms QT Int : 544 ms P-R-T Axes : 080 074 062 degrees QTc Int : 529 ms Sinus bradycardia Nonspecific T wave abnormality Prolonged QT Abnormal ECG When compared with ECG of 25-JAN-2023 04:16, No significant change was found Confirmed by Garret Manzo ([id number]) on 01/25/2023 8:13:42 AM Referred By: REFERRED SELF Confirmed By:Garret Manzo
--- NOTE | 2023-01-25 08:28 | Communication Note ---
Date of Service: January 25, 2023 Last night code uvaldo was called as patient had seizure for about a minute and then was very restless.Stopped IV heparin. Difficult to get vitals. A dose of iv Ativan 2mg was given but as patient was still restless a dose of iv 5mg Valium given and transferred to ICU. In ICU patient was intubated. Then Patient developed bradycardia , HR in 30;s and Blood pressure dropped. She was placed on dopamine drip and Levophed drip. Ct head was done which showed no acute findings.Heparin drip was resumed. On propofol. MRI head ordered. Daughter notified. Daughter Came to hospital and was notified the events. Appreciate critical care help.
[2023-01-25] MEDS: buPROPion XL 300 MG TABCR PO SCH (08:50)
[2023-01-25] MEDS: GABAPENTIN 100 MG CAP PO SCH ×2 (08:50→20:03)
[2023-01-25] MEDS: MONTELUKAST SODIUM 10 MG TABLET PO SCH (08:50)
[2023-01-25] MEDS: AMIODARONE 200 MG TAB PO SCH ×2 (08:50→10:39)
[2023-01-25] MEDS: INSULIN ASPART PER UNIT CHARGE SC SCH ×3 (08:51→18:37)
[2023-01-25] MEDS: ATORVASTATIN 40 MG TAB PO SCH (08:53)
[2023-01-25] MEDS: UMECLIDINIUM/VILANTEROL 62.5/25MCG 7 PUFFS/INHALER INH SCH (09:58)
[2023-01-25] MEDS: FLUTICASONE FUROATE 200MCG 14 PUFFS/INHALER INH SCH (09:58)
--- NOTE | 2023-01-25 10:22 | Cardiology Progress Note ---
Date of Service January 25, 2023 Assessment & Plan (1) Acute CVA (cerebrovascular accident): (2) Paroxysmal atrial fibrillation: (3) Tachycardia-bradycardia syndrome: (4) Symptomatic bradycardia: Plan Complex 67-year-old female presenting with cerebrovascular accident and Eliquis failure. Developed seizure-like activity last night requiring intubation with significant bradycardia on telemetry. Beta-omar on hold. Amiodarone will be placed on hold at this time. Discussed with critical care. Wean propofol, norepinephrine, and dopamine as tolerated. If heart rate does not improve patient will require permanent pacemaker implantation during hospitalization. Recommend continuing IV heparin however, would not initiate warfarin at this time. Admission and Anticipated Discharge Date Admission Date: January 23, 2023 Subjective Patient seen and examined at the bedside in ICU. Intubated overnight due to seizure activity. Bradycardia noted on telemetry with sinus rhythm dipping into the 30s. Patient requiring norepinephrine and dopamine infusion for heart rate and blood pressure support. Currently on propofol infusion as well. Daughter, who is a primary care physician, present at bedside. Patient wearing Apple Watch to monitor heart rate at home. No evidence of recurrent atrial fibrillation recently. Review of Systems Review of Systems: Unobtainable due to endotracheal tube Physical Exam Constitutional: well developed and well nourished; no acute distress Respiratory: no respiratory distress and no labored breathing Auscultation: no crackles, no rales, no rhonchi and no wheezes Cardiovascular: Rate/Rhythm: regular rate, regular rhythm and + bradycardic Heart Sounds: normal S1, normal S2 and + murmur (1/6 systolic ejection murmur heard at the base) Vessels: no JVD Extremities: no edema Gastrointestinal (Abdomen): Inspection/Auscultation: abdomen normal to inspection and normal bowel sounds; abdomen not distended Percussion/Palpation: abdomen nontender, no guarding and abdomen not rigid Results & Data Vital Signs (Past 12 Hours) Vital Signs Temp Pulse Pulse Resp BP BP Pulse Ox 01/25/23 10:00 37.0 C 47 L 20 126/66 97 01/25/23 09:30 134/66 01/25/23 09:00 37.0 C 55 L 20 134/66 96 01/25/23 08:30 37.0 C 56 L 20 133/65 96 01/25/23 08:00 37.1 C 56 L 20 133/66 95 01/25/23 07:39 56 L 20 96 01/25/23 07:30 37.2 C 56 L 20 130/64 96 01/25/23 07:15 37.2 C 56 L 20 133/63 96 01/25/23 07:00 37.2 C 56 L 20 130/61 96 01/25/23 06:00 126/60 01/25/23 06:00 37.5 C 58 L 20 95 01/25/23 05:31 01/25/23 05:26 20 01/25/23 05:00 142/65 H 01/25/23 05:00 37.7 C H 60 20 96 01/25/23 04:00 38.0 C H 50 L 24 97 01/25/23 04:00 98/57 L 01/25/23 03:45 117/62 01/25/23 03:45 38.1 C H 51 L 24 99 01/25/23 03:30 126/68 01/25/23 03:30 38.1 C H 61 24 98 01/25/23 03:01 119/62 01/25/23 03:01 38.3 C H 64 24 97 01/25/23 03:00 01/25/23 03:00 38.3 C H 63 24 96 01/25/23 02:50 01/25/23 02:45 129/59 L 01/25/23 02:45 38.3 C H 63 24 98 01/25/23 02:40 38.3 C H 64 24 99 01/25/23 02:39 67 24 100 01/25/23 02:35 38.3 C H 66 22 100 01/25/23 02:30 165/63 H 01/25/23 02:30 67 21 100 01/25/23 02:25 68 23 100 01/25/23 02:20 37.7 C H 68 24 100 01/25/23 02:15 69 18 100 01/25/23 02:15 154/67 H 01/25/23 02:10 71 22 100 01/25/23 02:05 71 24 99 01/25/23 02:03 151/66 H 01/25/23 02:03 73 14 01/25/23 02:00 74 24 96 01/25/23 01:58 75 15 97 01/25/23 01:35 63 16 90 01/25/23 01:33 68/26 L 01/25/23 01:33 63 26 H 91 01/25/23 01:32 75/24 L 01/25/23 01:32 58 L 7 L 90 01/25/23 01:31 59/26 L 01/25/23 01:31 57 L 14 89 L 01/25/23 01:30 51/23 L 01/25/23 01:30 49 L 26 H 89 L 01/25/23 01:29 65/33 L 01/25/23 01:29 51 L 18 90 01/25/23 01:27 61/32 L 01/25/23 01:27 50 L 10 L 87 L 01/25/23 01:25 46 L 11 L 88 L 01/25/23 01:20 36 L 17 94 01/25/23 01:16 83/36 L 01/25/23 01:16 35 L 6 L 92 01/25/23 01:15 35 L 6 L 93 01/25/23 01:10 112/44 L 01/25/23 01:10 35 L 3 L 95 01/25/23 01:05 38 L 4 L 95 01/25/23 01:00 41 L 27 H 91 01/25/23 01:00 167/79 H 01/25/23 00:59 40 L 21 87 L 01/25/23 00:35 58 L 63 H 01/25/23 00:30 62 46 H 01/24/23 23:45 63 26 H 90 01/24/23 23:19 37.5 C 79 18 129/82 91 O2 Del Method FiO2 01/25/23 10:00 01/25/23 09:30 01/25/23 09:00 01/25/23 08:30 01/25/23 08:00 01/25/23 07:39 40 01/25/23 07:30 01/25/23 07:15 01/25/23 07:00 01/25/23 06:00 01/25/23 06:00 Mechanical Vent 50 01/25/23 05:31 50 01/25/23 05:26 50 01/25/23 05:00 01/25/23 05:00 Mechanical Vent 50 01/25/23 04:00 Mechanical Vent 01/25/23 04:00 01/25/23 03:45 01/25/23 03:45 Mechanical Vent 01/25/23 03:30 01/25/23 03:30 Mechanical Vent 01/25/23 03:01 01/25/23 03:01 Mechanical Vent 01/25/23 03:00 Mechanical Vent 60 01/25/23 03:00 Mechanical Vent 01/25/23 02:50 60 01/25/23 02:45 01/25/23 02:45 01/25/23 02:40 01/25/23 02:39 100 01/25/23 02:35 01/25/23 02:30 01/25/23 02:30 01/25/23 02:25 01/25/23 02:20 Mechanical Vent 01/25/23 02:15 01/25/23 02:15 01/25/23 02:10 01/25/23 02:05 01/25/23 02:03 01/25/23 02:03 01/25/23 02:00 01/25/23 01:58 01/25/23 01:35 01/25/23 01:33 01/25/23 01:33 01/25/23 01:32 01/25/23 01:32 01/25/23 01:31 01/25/23 01:31 01/25/23 01:30 01/25/23 01:30 01/25/23 01:29 01/25/23 01:29 01/25/23 01:27 01/25/23 01:27 01/25/23 01:25 01/25/23 01:20 01/25/23 01:16 01/25/23 01:16 01/25/23 01:15 01/25/23 01:10 01/25/23 01:10 01/25/23 01:05 01/25/23 01:00 01/25/23 01:00 01/25/23 00:59 01/25/23 00:35 01/25/23 00:30 01/24/23 23:45 01/24/23 23:19 CPAP Laboratory Results Cardiac Enzymes 01/25/23 Range/Units 01:26 AST 23 (13-39) U/L Coagulation 01/24/23 01/24/23 01/25/23 Range/Units 17:29 23:36 01:26 PT 11.1 (9.0-12.0) Seconds APTT 48.6 H* 48.8 H* 32.4 H (21.0-31.0) Seconds 01/25/23 Range/Units 03:35 PT 11.0 (9.0-12.0) Seconds APTT (21.0-31.0) Seconds CBC 01/25/23 01/25/23 Range/Units 01:26 03:35 WBC 11.71 H 10.99 H (4.8-10.8) K/ul RBC 4.24 4.08 L (4.20-5.40) M/uL Hgb 13.2 12.7 (12.0-16.0) g/dl Hct 40.8 37.5 (37.0-47.0) % Plt Count 266 254 (130-400) K/uL Neut # (Auto) 10.30 H 9.98 H (1.40-6.50) K/uL Lymph # (Auto) 0.67 L 0.44 L (1.20-3.40) K/uL [place] # (Auto) 0.66 H 0.49 (0.11-0.59) K/uL Eos # (Auto) 0.03 0.01 (0.00-0.50) K/uL Baso # (Auto) 0.01 0.02 (0.00-0.20) K/uL Comprehensive Metabolic Panel 01/25/23 01/25/23 Range/Units 01:26 03:35 Sodium 135 L 136 (136-145) mmol/L Potassium 4.4 3.9 (3.5-5.1) mmol/L Chloride 100 100 (98-107) mmol/L Carbon Dioxide 25 27 (21-32) mmol/L BUN 15 15 (6-23) mg/dl Creatinine 1.03 0.89 (0.6-1.2) mg/dl Glucose 239 H 217 H (70-99(Fasting)) mg/dl Calcium 8.9 8.8 (8.6-10.3) mg/dl AST 23 (13-39) U/L ALT 27 (7-52) U/L Alkaline Phosphatase 49 (34-104) U/L Total Protein 6.8 (6.0-8.3) gm/dl Albumin 4.0 (3.4-5.0) gm/dl Intake and Output 01/24/23 01/25/23 01/25/23 22:59 06:59 14:59 Intake Total 1902.400 / 3986.196 743.796 / 3986.196 170.887 / 170.887 Output Total 550 / 550 175 / 175 Balance 1902.400 / 3436.196 193.796 / 3436.196 -4.113 / -4.113 Intake: IV 1052.400 / 2796.196 743.796 / 2796.196 170.887 / 170.887 DOPamine / D5W 400 mg In 250 ml 128.652 / 128.652 70.887 / 70.887 @ 5 MCG/KG/MIN 19.575 mls/hr IV .[id number] [facility] Rx#:[id number] Heparin Sodium/Dextrose 25,000 220.733 / 500.000 279.267 / 500.000 units In 500 ml @ 1,400 UNITS/ HR 28 mls/hr IV .[id number] [facility] Rx #:[id number] Magnesium Sulfate / D5w 1 gm In 146.667 / 146.667 100 / 100 100 ml @ 50 mls/hr IV Q2H [facility] Rx#:[id number] Norepinephrine/D5w 4 mg In 250 66.002 / 66.002 ml @ 0.02 MCG/KG/MIN 7.83 mls/ hr IV .Q24H [facility] Rx#:[id number] Sodium Chloride 0.9% 1,000 ml @ 831.667 / 1831.667 100 mls/hr IV .Q10H [facility] Rx#: [id number] fentaNYL citrate 2,500 mcg In 23.208 / 23.208 250 ml @ 50 MCG/HR 5 mls/hr IV .Q50H [facility] Rx#:[id number] propofoL 1,000 mg In 100 ml @ 100.000 / 100.000 25 MCG/KG/MIN 15.66 mls/hr IV . Q6H24M [facility] Rx#:[id number] Oral 850 / 1190 Output: Urine Amount (Catheter) 550 / 550 175 / 175 La/Indwelling 550 / 550 175 / 175 Other: # Unmeasured Voids 1 Weight 100.4 kg Weight Measurement Method Built in Bedscale ECG Additional Comments: ECG: Sinus bradycardia, nonspecific T wave abnormality, prolonged QT, 529ms
[2023-01-25] MEDS ORDERED: Nursing to Pharmacy Communication SCH (10:45)
[2023-01-25 11:18] LABS: Partial Thromboplastin Ratio 1.4; Partial Thromboplastin Time 38.4 Seconds (21.0-31.0)
[2023-01-25] MEDS ORDERED: MIDAZOLAM HCL 5 MG/ML 2ML VIAL IV ONE (11:19)
[2023-01-25] MEDS ORDERED: fentaNYL citrate PF 100 MCG/2 ML VIAL IV ONE (11:19)
[2023-01-25] MEDS ORDERED: SUCCINYLCHOLINE CHLORIDE 20 MG/ML 10 ML VIAL IV ONE (11:19)
[2023-01-25] MEDS ORDERED: VECURONIUM BROMIDE 10 MG VIAL IV STA (11:28)
--- NOTE | 2023-01-25 12:56 | Magnetic Resonance Report ---
Brain MRI WITHOUT CONTRAST HISTORY: Progressive right arm weakness. eval for another stroke or increase in previous TECHNIQUE: Multiplanar multisequence MRI of the brain was performed without the use of contrast. COMPARISON STUDY: Brain MRI 01/24/2023. FINDINGS: Increase in size in the acute to subacute left MCA territory infarct, primarily involving t he left frontotemporal region. This infarct measures up to 4 cm in size. A orogastric tube is partial ly visualized. Fluid levels within the sphenoid sinuses and nasopharynx are noted. The mastoid air ce lls are clear. The major vascular flow-voids at the skull base are well-maintained. There is no mass, hematoma, midline shift. Mild atrophic changes again noted within the brain. There is an old right M CA territory infarct again noted. Vasogenic edema within the left MCA territory infarct has also prog ressed. IMPRESSION: Interval progression of the now moderate sized acute to subacute left MCA territory infarct as descri bed above. No midline shift or intracranial hemorrhage identified at this time. ACT 112: Negative or not required by law. Electronically signed by: Alexis Herzog M.D. 01/25/2023 12:54 PM
--- NOTE | 2023-01-25 14:53 | Neurology Progress Note ---
Date of Service January 25, 2023 Assessment & Plan (1) Acute ischemic left MCA stroke: Significant events overnight with seizure followed by intubation causing bradycardia and hypotension. Seizure is not uncommon with cortical infarcts, however the extension of her stroke today is most consistent with loss of penumbra due to bradycardia and hypotension post-intubation. As there is no new areas of infarct it would be unlikely that this stroke extension is due to a new embolic phenomenon. Recommend she be loaded with Keppra 2g IV x1 now and continued on 1000mg BID. Would obtain routine EEG off propofol if possible but otherwise need to coordinate extubation plans and anticoagulation with cardiology if they plan to insert a pacer. I would unfortunately suspect that her deficits will be worse now with the extension of her infarct. -- Keppra 2000mg IV load x1 now, then 1000mg BID thereafter -- Routine EEG off propofol if possible -- Okay to continue heparin but would hold warfarin for at least 7 days, now given the size of the stroke -- Would repeat CT head in 7 days to determine if safe to start warfarin -- Pacer plans per cardiology, which may dictate timing of both terminal superintendent anticoagulation and extubation Subjective Telehealth Information I performed this visit using a real-time telehealth connection between my location and the patients location ([facility]). After connecting through interactive tele-video, patient was identified by name and date of and/or wristband check.Patient (or authorized healthcare support representative) was informed that this was a telemedicine visit and it was being conducted confidentially over secure lines. My office door was closed and no one else was present in the room with me.Patient (or authorized healthcare support representative) provided consent to proceed with the visit, expressed an understanding of privacy and security of the telemedicine visit, and gave permission to have a hospital support representative in the room in order to assist with the visit and to conduct portions of the visit, as needed. I informed the patient (or authorized healthcare support representative) that I reviewed their record and presented the opportunity for them to ask any questions regarding the visit today. The patient agreed to participate. Since the last visit yesterday, the patient had a witnessed seizure-like episode requiring ativan and ultimately versed. She was then intubated and developed profound bradycardia and hypotension and has been sedated on propofol since. While she does move spontaneously there is no movement noted on the R side. The patient's daughter was at the bedside today and updated regarding the events of yesterday and the MRI brain performed today revealing extension of her previous infarct. Review of Systems Unable to obtain Physical Exam Intubated and sedated, no abnormal movements noted. Results & Data Vital Signs (Past 12 Hours) Vital Signs Temp Pulse Resp BP Pulse Ox O2 Del Method FiO2 01/25/23 14:00 36.9 C 55 L 23 123/57 L 99 01/25/23 13:31 50 01/25/23 13:00 36.8 C 60 20 135/65 97 01/25/23 12:55 36.8 C 63 20 140/65 98 01/25/23 11:26 54 L 23 125/60 99 01/25/23 11:00 37.0 C 55 L 20 126/63 96 01/25/23 11:00 55 L 20 96 35 01/25/23 10:00 37.0 C 47 L 20 126/66 97 01/25/23 09:30 134/66 01/25/23 09:00 37.0 C 55 L 20 134/66 96 01/25/23 08:30 37.0 C 56 L 20 133/65 96 01/25/23 08:00 37.1 C 56 L 20 133/66 95 01/25/23 07:39 56 L 20 96 40 01/25/23 07:30 37.2 C 56 L 20 130/64 96 01/25/23 07:15 37.2 C 56 L 20 133/63 96 01/25/23 07:00 37.2 C 56 L 20 130/61 96 01/25/23 06:00 126/60 01/25/23 06:00 37.5 C 58 L 20 95 Mechanical Vent 50 01/25/23 05:31 50 01/25/23 05:26 20 50 01/25/23 05:00 142/65 H 01/25/23 05:00 37.7 C H 60 20 96 Mechanical Vent 50 01/25/23 04:00 38.0 C H 50 L 24 97 Mechanical Vent 01/25/23 04:00 98/57 L 01/25/23 03:45 117/62 01/25/23 03:45 38.1 C H 51 L 24 99 Mechanical Vent 01/25/23 03:30 126/68 01/25/23 03:30 38.1 C H 61 24 98 Mechanical Vent 01/25/23 03:01 119/62 01/25/23 03:01 38.3 C H 64 24 97 Mechanical Vent 01/25/23 03:00 Mechanical Vent 60 01/25/23 03:00 38.3 C H 63 24 96 Mechanical Vent Laboratory Results Abnormal lab results 01/24/23 01/24/23 01/24/23 Range/Units 16:21 17:29 19:54 WBC (4.8-10.8) K/ul RBC (4.20-5.40) M/uL RDW Std Deviation (36.4-46.3) fL Neut # (Auto) (1.40-6.50) K/uL Lymph # (Auto) (1.20-3.40) K/uL [place] # (Auto) (0.11-0.59) K/uL APTT 48.6 H* (21.0-31.0) Seconds POC pH (7.35-7.45) POC pO2 (80-95) mmHg POC HCO3 (19-24) temi/L POC Base Excess (-9-1.8) temi/L ABG pH (Temp Correct) (7.35-7.45) POC ABG O2 Sat (90-95) % Sodium (136-145) mmol/L Glucose (70-99(Fasting)) mg/dl POC Glucose 107 H 105 H (70-99) mg/dl Lactate (0.4-2.0) mmol/L Urine Protein (Negative) Urine Glucose (UA) (Negative) U Epithel Cells (Auto) (0-5) /lpf 01/24/23 01/25/23 01/25/23 Range/Units 23:36 01:26 02:32 WBC 11.71 H (4.8-10.8) K/ul RBC (4.20-5.40) M/uL RDW Std Deviation 48.4 H (36.4-46.3) fL Neut # (Auto) 10.30 H (1.40-6.50) K/uL Lymph # (Auto) 0.67 L (1.20-3.40) K/uL [place] # (Auto) 0.66 H (0.11-0.59) K/uL APTT 48.8 H* 32.4 H (21.0-31.0) Seconds POC pH (7.35-7.45) POC pO2 199 H (80-95) mmHg POC HCO3 28 H (19-24) temi/L POC Base Excess 3.0 H (-9-1.8) temi/L ABG pH (Temp Correct) (7.35-7.45) POC ABG O2 Sat 100.0 H (90-95) % Sodium 135 L (136-145) mmol/L Glucose 239 H (70-99(Fasting)) mg/dl POC Glucose (70-99) mg/dl Lactate 2.7 H* (0.4-2.0) mmol/L Urine Protein (Negative) Urine Glucose (UA) (Negative) U Epithel Cells (Auto) (0-5) /lpf 01/25/23 01/25/23 01/25/23 Range/Units 02:52 03:35 04:47 WBC 10.99 H (4.8-10.8) K/ul RBC 4.08 L (4.20-5.40) M/uL RDW Std Deviation (36.4-46.3) fL Neut # (Auto) 9.98 H (1.40-6.50) K/uL Lymph # (Auto) 0.44 L (1.20-3.40) K/uL [place] # (Auto) (0.11-0.59) K/uL APTT (21.0-31.0) Seconds POC pH 7.48 H (7.35-7.45) POC pO2 (80-95) mmHg POC HCO3 27 H (19-24) temi/L POC Base Excess 3.0 H (-9-1.8) temi/L ABG pH (Temp Correct) 7.471 H (7.35-7.45) POC ABG O2 Sat 98.0 H (90-95) % Sodium (136-145) mmol/L Glucose 217 H (70-99(Fasting)) mg/dl POC Glucose (70-99) mg/dl Lactate (0.4-2.0) mmol/L Urine Protein 1+ H (Negative) Urine Glucose (UA) Trace H (Negative) U Epithel Cells (Auto) 5-10 H (0-5) /lpf 01/25/23 01/25/23 01/25/23 Range/Units 07:49 10:30 13:48 WBC (4.8-10.8) K/ul RBC (4.20-5.40) M/uL RDW Std Deviation (36.4-46.3) fL Neut # (Auto) (1.40-6.50) K/uL Lymph # (Auto) (1.20-3.40) K/uL [place] # (Auto) (0.11-0.59) K/uL APTT 38.4 H (21.0-31.0) Seconds POC pH (7.35-7.45) POC pO2 (80-95) mmHg POC HCO3 (19-24) temi/L POC Base Excess (-9-1.8) temi/L ABG pH (Temp Correct) (7.35-7.45) POC ABG O2 Sat (90-95) % Sodium (136-145) mmol/L Glucose (70-99(Fasting)) mg/dl POC Glucose 172 H 115 H (70-99) mg/dl Lactate (0.4-2.0) mmol/L Urine Protein (Negative) Urine Glucose (UA) (Negative) U Epithel Cells (Auto) (0-5) /lpf Diagnostic Findings MRI brain - extension of prior L MCA stroke
[2023-01-25] MEDS ORDERED: WARFARIN SOD 2.5 MG TAB PO SCH (16:00)
[2023-01-25] MEDS ORDERED: AMPICILLIN/SULBACTAM SOD 3,000 MG in SODIUM CHLOR 0.9% MINI-B 100 ML IV SCH (18:00)
[2023-01-25] MEDS: ACETAMINOPHEN 325 MG TAB PO PRN (19:20)
[2023-01-25 20:46] LABS: Partial Thromboplastin Ratio 1.5
[2023-01-25 20:58] LABS: Partial Thromboplastin Time 42.6 Seconds (21.0-31.0)
[2023-01-25] MEDS ORDERED: ACETAMINOPHEN 1,000 MG/100 ML VIAL IV STA (21:51)
[2023-01-25 23:39] LABS: A calco-baum cmplx NotReported Not Detected (NotDetected); Bact fragilis Not Reported Not Detected (NotDetected); Blood Culture Id Panel See PCR Comment (NotDetected); C auris Not Reported Not Detected (NotDetected); Calbicans Not Reported Not Detected (NotDetected); Candida glabrata Not Reported Not Detected (NotDetected); Candida krusei Not Reported Not Detected (NotDetected); Cneoformans/gatti Not Reported Not Detected (NotDetected); Cparapsilosis Not Reported Not Detected (NotDetected); E cloacae compx Not Reported Not Detected (NotDetected); Efaecalis Not Reported Not Detected (NotDetected); Efaecium Not Reported Not Detected (NotDetected); Enterobacterales Not Reported Not Detected (NotDetected); Escherichia coli Not Reported Not Detected (NotDetected); H influenzae Not Reported Not Detected (NotDetected); K aerogenes Not Reported Not Detected (NotDetected); Koxytoca Not Reported Not Detected (NotDetected); Kpneumoniae grp Not Reported Not Detected (NotDetected); Lmonocyt Not Reported Not Detected (NotDetected); N meningitidis Not Reported Not Detected (NotDetected); P aeruginosa Not Reported Not Detected (NotDetected); Proteus spp Not Reported Not Detected (NotDetected); Salmonella spp Not Reported Not Detected (NotDetected); Smarcescens Not Reported Not Detected (NotDetected); Staph lugdunensis Not Reported Not Detected (NotDetected); Staph spp. Not Reported DETECTED (NotDetected); Staphaureus Not Reported Not Detected (NotDetected); Staphepi Not Reported DETECTED (NotDetected); Staphylococcus spp. DETECTED (NotDetected); Stenmaltophilia Not Reported Not Detected (NotDetected); Strep agal(GrpB) Not Reported Not Detected (NotDetected); Strep pneum Not Reported Not Detected (NotDetected); Strep pyog (GrpA) Not Reported Not Detected (NotDetected); Strep spp Not Reported Not Detected (NotDetected); mecAC Resistant Gene DETECTED (NotDetected)
[2023-01-25 23:47] LABS: Staphylococcus epidermidis DETECTED (NotDetected)
[2023-01-25] MEDS ORDERED: VANCOMYCIN CONSULT ACTIVE PRN ×2 (23:59)
[2023-01-26] MEDS: PROPOFOL BOLUS FROM BAG IV PRN ×3 (00:18→03:30)
[2023-01-26] MEDS ORDERED: VANCOMYCIN HCL 2,500 MG in SODIUM CHLORIDE 0.9% 500 ML IV STA (00:24)
[2023-01-26] MEDS: INSULIN ASPART PER UNIT CHARGE SC SCH ×5 (00:32→20:42)
[2023-01-26] MEDS: fentaNYL BOLUS from BAG IV PRN ×2 (00:58→04:07)
[2023-01-26] MEDS: DOPamine / D5W 400 MG/250 ML BAG IV SCH ×6 (02:52→20:11)
[2023-01-26] MEDS: propofoL 1,000 MG/100 ML VIAL IV SCH ×7 (04:05→23:29)
[2023-01-26] MEDS: ACETAMINOPHEN 325 MG TAB PO PRN ×3 (04:08→17:10)
[2023-01-26 04:36] LABS: Basophils # (auto) 0.03 K/uL (0.00-0.20); Basophils % (auto) 0.2 %; Eosinophils # (auto) 0.08 K/uL (0.00-0.50); Eosinophils % (auto) 0.6 %; Hematocrit (blood only) 40.6 % (37.0-47.0); Hemoglobin 13.2 g/dl (12.0-16.0); Immature Granulocytes # (auto) 0.06 K/uL (0.01-0.20); Immature Granulocytes % (auto) 0.4 %; Lymphocytes # (auto) 1.38 K/uL (1.20-3.40); Lymphocytes % (auto) 9.7 %; Mean Corpuscular Hemoglobin 30.8 pg (25.0-34.0); Mean Corpuscular Hgb Conc 32.5 g/dL (32.0-36.0); Mean Corpuscular Volume 94.9 fL (80.0-100.0); Mean Platelet Volume 9.8 fL (9.4-12.4); Monocytes # (auto) 0.91 K/uL (0.11-0.59); Monocytes % (auto) 6.4 %; Neutrophils # (auto) 11.75 K/uL (1.40-6.50); Neutrophils % (auto) 82.7 %; Platelet Count 253 K/uL (130-400); RDW Coefficient of Variation 13.4 % (11.5-14.5); RDW Standard Deviation 47.1 fL (36.4-46.3); Red Blood Count 4.28 M/uL (4.20-5.40); White Blood Count 14.21 K/ul (4.8-10.8)
[2023-01-26 04:49] LABS: BUN Creatinine Ratio 11.8 (10-20); Calcium 8.8 mg/dl (8.6-10.3); Creatinine Clr Calc Pharmacy 94.8 ml/min; Est GFR (African American) 104.2 ml/min; Est GFR (Non-African American) 89.9 ml/min; Magnesium 1.8 mg/dl (1.7-2.4); Phosphorus 3.2 mg/dl (2.5-4.9); Potassium 3.9 mmol/L (3.5-5.1)
[2023-01-26] MEDS: HEPARIN SODIUM/DEXTROSE 25,000 UNITS/500 ML BAG IV SCH (05:10)
[2023-01-26 05:20] LABS: INR 1.1 (0.9-1.1); Partial Thromboplastin Ratio 1.7; Prothrombin Time 11.6 Seconds (9.0-12.0)
[2023-01-26 05:21] LABS: Partial Thromboplastin Time 48.9 Seconds (21.0-31.0)
[2023-01-26] MEDS ORDERED: POTASSIUM CHLORIDE 20 MEQ/15 ML UDC PO STA (06:15)
[2023-01-26] MEDS: MAGNESIUM SULFATE / D5W 1 GM/100 ML BAG IV SCH ×2 (06:40→08:21)
--- NOTE | 2023-01-26 07:50 | Electrocardiogram Report ---
Test Reason : Blood Pressure : / mmHG Vent. Rate : 066 BPM Atrial Rate : 066 BPM P-R Int : 192 ms QRS Dur : 108 ms QT Int : 456 ms P-R-T Axes : 074 090 047 degrees QTc Int : 478 ms Normal sinus rhythm Rightward axis Borderline ECG When compared with ECG of 25-JAN-2023 06:37, Nonspecific T wave abnormality no longer evident in Anterior leads Confirmed by Garret Manzo ([id number]) on 01/26/2023 7:50:03 AM Referred By: REFERRED SELF Confirmed By:Garret Manzo
--- NOTE | 2023-01-26 07:51 | Critical Care Progress Note ---
Date of Service January 26, 2023 Assessment & Plan (1) Acute CVA (cerebrovascular accident): (2) Sleep apnea: (3) T2DM (type 2 diabetes mellitus): (4) Stroke-like symptoms: (5) Encounter for pre-operative examination: (6) Atrial fibrillation: (7) Seizure-like activity: (8) Required emergent intubation: (9) Symptomatic bradycardia: (10) Encephalopathy: Plan Reason Critically Ill: Patient with reported seizure like activity remained encephalopathic/post ictal, required emergent intubation for sedation to rule out intracranial process, as well as symptomatic bradycardia requiring vasoactive support. 24-hour events: Patient was maintained in the intensive care unit after being transferred. She was intubated to facilitate imaging studies. She been seen by neurology and loaded on Keppra. No additional seizure activity was identified. She is on pressure support ventilation this morning but secretions appear to be problematic and mental status continues to wax and wane. She is now febrile with copious secretions from her endotracheal tube. Recommendations: Neuro -recurrent CVA, Eliquis failure. CT shows progression of stroke with surrounding vasogenic edema. Keep head of bed elevated at 30 degrees. Avoid hypoxemia and hyperthermia. If unable to control temperature with passive external cooling and Tylenol, may consider placement of a cooling catheter to allow for normothermia. Multifocal strokes without a clear embolic cause. Echo with bubble showed no [id number] shunt. GMAT TUTOR vasculitis is a possibility although the strokes are not classic. Will check complements, TAYLOR, ESR, and CRP as well as ANCA. Do not have the capabilities to perform cerebral angiogram here. Discussed with daughter at bedside. Offered transfer to [facility] given the vasogenic edema and multifocal strokes. She is comfortable keeping her here for now. Given the surrounding edema we will try and push sodium levels, see comments under renal. Continue Keppra and defer EEG to neurology. Continue pressors to try and keep mean arterial pressures above 80. Cardiac -discussed with cardiology yesterday. Tachybradycardia syndrome. May require pacemaker at some point. Continue to hold beta-blockers. Echocardiogram demonstrated severe pulmonary hypertension. Will need outpatient workup with PFTs, and polysomnography. At this point in time continue heparin. Defer to cardiology decision regarding pacemaker versus ablation. Respiratory -intubated. Pressure support ventilation being tolerated well however the patient's mental status precludes extubation currently. Briefly discussed with family at bedside potential need for tracheostomy if mechanical ventilation continues over the next 4 to 5 days. They do not think the patient would want to pursue that intervention but are willing to see what progress she can make. Suspect tracheobronchitis. Cultures will be sent. See comments under ID GI -asked nutrition to start tube feeding. RENAL/LYTES -mild hyponatremia. Given vasogenic edema would like to push sodium levels to 145. Will start with 100 mL bolus of hypertonic saline and then start at 15 cc an hour with every 4 hours BMPs. ICU electrolyte replacement protocol - No concerns at this time - Continue La catheter while intubated and sedate ENDO - glycemic control per protocol. HEME - NO acute concerns at this time ID -blood cultures show staph epi which is likely contaminant. White blood cell count is elevated however procalcitonin remains normal. Will check respiratory cultures and start on Unasyn. Can likely discontinue vancomycin in the next 24 hours depending on culture results. I feel the blood culture is likely contaminant. LINES/IV ACCESS - Arterial line, PIVx2, CVL, ETT, OGT, La catheter Continue use of these lines DVT PROPHYLAXIS - SCDS DISPO: ICU while mechanically intubated and sedated as well as until hemodynamics proven stable off vasopressor support I have personally spent 76 minutes of critical care time in the direct management of this patient. This is a life/limb threatening event. This includes time spent evaluating patient, direct bedside care, chart review, placing orders , interpretation of diagnostic studies, discussion with consultants, patient, and family members, as well as other required patient management activities. This time is exclusive of all separately billable procedures, and teaching time and separate from and in addition to any other critical care service time. Admission and Anticipated Discharge Date Admission Date: January 23, 2023 Subjective Patient seen and examined. EMR reviewed. She is intubated and sedated. She is awake but is not able to follow commands reasonably and cough reflexes not reassuring Review of Systems Review of Systems: Unobtainable due to endotracheal tube Physical Exam Constitutional: Patient is awake. She appears to have a leftward gaze preference. She is not following commands reliably. Neck: trachea midline, no thyromegaly Respiratory: no respiratory distress, no labored breathing and not tachypneic Auscultation: + rhonchi Cardiovascular: RRR, no murmur, no edema Gastrointestinal (Abdomen): normal bowel sounds, soft, nontender, no hepatosplenomegaly Musculoskeletal: Extremities: extremities normal to inspection Skin: no rashes, warm and dry Neurologic: Not following commands. Hemiparesis on the right with some small degrees of movement. Toes upgoing bilaterally Lymphatic: no cervical lymphadenopathy Results & Data Results & Data Vital Signs (Past 12 Hours) Vital Signs Temp Pulse Resp BP Pulse Ox O2 Del Method FiO2 01/26/23 07:20 71 24 94 30 01/26/23 06:00 38.8 C H 68 20 122/53 L 95 Mechanical Vent 01/26/23 05:00 39.2 C H 65 21 132/50 L 95 Mechanical Vent 01/26/23 05:00 30 01/26/23 04:00 38.4 C H 65 22 140/62 92 Mechanical Vent 01/26/23 03:50 57 L 20 96 30 01/26/23 03:00 37.8 C H 58 L 20 112/54 L 96 Mechanical Vent 01/26/23 02:01 37.6 C H 61 28 H 122/99 92 Mechanical Vent 01/26/23 01:36 61 01/26/23 01:03 Mechanical Vent 35 01/26/23 01:00 37.7 C H 59 L 20 136/67 98 Mechanical Vent 01/26/23 01:00 35 01/26/23 00:00 37.8 C H 61 20 148/73 H 95 Mechanical Vent 01/25/23 23:01 38.4 C H 59 L 20 150/68 H 94 Mechanical Vent 01/25/23 22:34 20 30 01/25/23 22:00 38.5 C H 54 L 20 112/60 96 Mechanical Vent 01/25/23 21:00 38.4 C H 59 L 20 128/67 97 Mechanical Vent 01/25/23 21:00 35 01/25/23 20:25 60 20 97 30 01/25/23 20:00 38.3 C H 55 L 20 129/59 L 96 Mechanical Vent Critical Care Results & Data Vital Signs (Past 12 Hours) Vital Signs Temp Pulse Resp BP Pulse Ox O2 Del Method FiO2 01/26/23 07:25 35 01/26/23 07:20 71 24 94 30 01/26/23 06:00 38.8 C H 68 20 122/53 L 95 Mechanical Vent 01/26/23 05:00 39.2 C H 65 21 132/50 L 95 Mechanical Vent 01/26/23 05:00 30 01/26/23 04:00 38.4 C H 65 22 140/62 92 Mechanical Vent 01/26/23 03:50 57 L 20 96 30 01/26/23 03:00 37.8 C H 58 L 20 112/54 L 96 Mechanical Vent 01/26/23 02:01 37.6 C H 61 28 H 122/99 92 Mechanical Vent 01/26/23 01:36 61 01/26/23 01:03 Mechanical Vent 35 01/26/23 01:00 37.7 C H 59 L 20 136/67 98 Mechanical Vent 01/26/23 01:00 35 01/26/23 00:00 37.8 C H 61 20 148/73 H 95 Mechanical Vent 01/25/23 23:01 38.4 C H 59 L 20 150/68 H 94 Mechanical Vent 01/25/23 22:34 20 30 01/25/23 22:00 38.5 C H 54 L 20 112/60 96 Mechanical Vent 01/25/23 21:00 38.4 C H 59 L 20 128/67 97 Mechanical Vent 01/25/23 21:00 35 01/25/23 20:25 60 20 97 30 01/25/23 20:00 38.3 C H 55 L 20 129/59 L 96 Mechanical Vent Lab & Micro Results (Past 24 Hours) RBC 4.28 M/uL (4.20-5.40) 01/26/23 WBC 14.21 K/ul (4.8-10.8) H 01/26/23 Hgb 13.2 g/dl (12.0-16.0) 01/26/23 Hct 40.6 % (37.0-47.0) 01/26/23 MCV 94.9 fL (80.0-100.0) 01/26/23 MCH 30.8 pg (25.0-34.0) 01/26/23 MCHC 32.5 g/dL (32.0-36.0) 01/26/23 RDW Standard Deviation 47.1 fL (36.4-46.3) H 01/26/23 RDW Coefficient of Variation 13.4 % (11.5-14.5) 01/26/23 Plt Count 253 K/uL (130-400) 01/26/23 MPV 9.8 fL (9.4-12.4) 01/26/23 Neutrophils (%) (Auto) 82.7 % 01/26/23 Lymphocytes (%) (Auto) 9.7 % 01/26/23 Monocytes # (Auto) 0.91 K/uL (0.11-0.59) H 01/26/23 Eosinophils # (Auto) 0.08 K/uL (0.00-0.50) 01/26/23 Immature Granulocyte % (Auto) 0.4 % 01/26/23 Neutrophils # (Auto) 11.75 K/uL (1.40-6.50) H 01/26/23 Lymphocytes # (Auto) 1.38 K/uL (1.20-3.40) 01/26/23 Monocytes # (Auto) 0.91 K/uL (0.11-0.59) H 01/26/23 Eosinophils # (Auto) 0.08 K/uL (0.00-0.50) 01/26/23 Basophils # (Auto) 0.03 K/uL (0.00-0.20) 01/26/23 Immature Granulocyte # (Auto) 0.06 K/uL (0.01-0.20) 3 Na 135 mmol/L (136-145) L 01/26/23 K 3.9 mmol/L (3.5-5.1) 01/26/23 Cl 102 mmol/L (98-107) 01/26/23 CO2 27 mmol/L (21-32) 01/26/23 Anion Gap 6 (3-11) 01/26/23 BUN 8 mg/dl (6-23) 01/26/23 Creatinine 0.68 mg/dl (0.6-1.2) 01/26/23 Estimated GFR ( Amer) 104.2 ml/min 01/26/23 Estimated GFR (Non-Af Amer) 89.9 ml/min 01/26/23 BUN/Creatinine Ratio 11.8 (10-20) 01/26/23 Glu 164 mg/dl (70-99(Fasting)) H 01/26/23 Ca 8.8 mg/dl (8.6-10.3) 11/26/23 Phosphorus Level 3.2 mg/dl (2.5-4.9) 01/26/23 Mg 1.8 mg/dl (1.7-2.4) 01/26/23 03:58 Calcium Level 8.8 mg/dl (8.6-10.3) 01/26/23 03:58 Prothromb Time International Ratio 1.1 (0.9-1.1) 01/26/23 03:5 8 Microbiology 01/25/23 03:35 Aerobic Blood Culture - Preliminary Blood No growth in Aerobic bottle after 24 hours. Anaerobic Blood Culture - Preliminary No growth in Anaerobic bottle after 24 hours. 01/25/23 03:45 Aerobic Blood Culture - Preliminary Blood Gram positive cocci clusters Anaerobic Blood Culture - Preliminary Gram positive cocci clusters Diagnostic Findings (Past 24 Hours) Chest X-Ray 01/25/23 00:56 XR chest 1V portable HISTORY: post intubation eval ETT and OGT placement COMPARISON: Chest 08/15/2022. FINDINGS: Endotracheal tube terminates approximately 1.6 cm from the lewis. Nasogastric tube terminates below the diaphragm. The tip is not included on this study. No pneumothorax. No pleural effusions. The cardiac silhouette remains enlarged. There is diffuse interstitial/vascular thickening consistent with mild congestive change. No new focal lung consolidations identified. IMPRESSION: 1. The endotracheal tube terminates 1.5 cm from the lewis. 2. Nasogastric tube terminates below the diaphragm. 3. Cardiomegaly and mild congestive change persists. ACT 112: Negative or not required by law. Electronically signed by: Alexis Herzog M.D. 01/25/2023 7:54 AM Brain MRI 01/25/23 02:45 Brain MRI WITHOUT CONTRAST HISTORY: Progressive right arm weakness. eval for another stroke or increase in previous TECHNIQUE: Multiplanar multisequence MRI of the brain was performed without the use of contrast. COMPARISON STUDY: Brain MRI 01/24/2023. FINDINGS: Increase in size in the acute to subacute left MCA territory infarct, primarily involving the left frontotemporal region. This infarct measures up to 4 cm in size. A orogastric tube is partially visualized. Fluid levels within the sphenoid sinuses and nasopharynx are noted. The mastoid air cells are clear. The major vascular flow-voids at the skull base are well-maintained. There is no mass, hematoma, midline shift. Mild atrophic changes again noted within the brain. There is an old right MCA territory infarct again noted. Vasogenic edema within the left MCA territory infarct has also progressed. IMPRESSION: Interval progression of the now moderate sized acute to subacute left MCA territory infarct as described above. No midline shift or intracranial hemorrhage identified at this time. ACT 112: Negative or not required by law. Electronically signed by: Alexis Herzog M.D. 01/25/2023 12:54 PM Chest X-Ray 01/25/23 03:31 XR chest 1V portable HISTORY: s/p central line placement COMPARISON: Chest 01/25/2023. FINDINGS: Interval placement of a right jugular central venous catheter which terminates in the SVC. Endotracheal tube terminates 2.5 cm from the lewis. Nasogastric tube terminates below the diaphragm. The tip is not included on this study. No pleural effusions. Cardiomegaly and mild congestive change persists. Left basilar linear densities favor subsegmental atelectasis. There is a deep l eft-sided sulcus with lucency at the left lung apex. This is likely positional. A small left-sided pneumothorax could also have a similar appearance. Therefore, repeat chest x-ray is recommended for further evaluation. IMPRESSION: 1. Satisfactory support line placement. 2. There is a deep left-sided sulcus with lucency at the left lung apex. This is likely positional. A small left-sided pneumothorax could also have a similar appearance. Therefore, repeat chest x-ray is recommended for further evaluation. 3. This report was called/faxed to the referring physician following dictation. ACT 112: Negative or not required by law. Electronically signed by: Alexis Herzog M.D. 01/25/2023 7:59 AM I & O Totals 24 Hours 01/25/23 01/26/23 01/27/23 06:59 06:59 06:59 Intake Total 3986.196 / 3986.196 2638.577 / 2638.577 248.080 / 248.080 Output Total 550 / 550 1810 / 1810 Balance 3436.196 / 3436.196 828.577 / 828.577 248.080 / 248.080 Cumulative 01/23/23 19:31 thru 01/26/23 07:51 Intake Total 6922.853 Output Total 2360 Balance 4562.853 RT Ventilator Mngmt (Last Documented) Ventilator Ordered Settings Ventilator Support Mode CPAP 01/26/23 07:25 Respiratory Rate 24 01/26/23 07:20 Ventilator Tidal Volume 400 01/26/23 07:20 Setting Minute Ventilation 8.5 01/26/23 07:20 Ventilator Positive Pressure 8 01/26/23 07:25 Support Setting Positive End Expiratory 5 01/26/23 07:25 Pressure Fraction of Inspired Oxygen 35 01/26/23 07:25 Machine Comment fio2 decreased to 30% 01/25/23 20:25 Ventilator - PT Measurements Respiratory Rate 24 Exhaled Tidal Volume 400 Minute Ventilation 8.5 Peak Inspiratory Airway 32 Pressure Plateau Pressure 20 Respiratory Cycle Inspiratory: 1:1.9 Expiratory Ratio Inspiratory Phase Time 0.9 End-Tidal CO2 26 Static Lung Compliance 26.67 Dynamic Lung Compliance 14.81 Normal Static Lung Compliance 44.00 Patient Measurements Comment Settings changed per Brezovic Coding Level of Care Code 10699 CRITICAL CARE EA ADD 30M Diagnoses Acute CVA (cerebrovascular accident) I63.9 Sleep apnea G47.30 T2DM (type 2 diabetes mellitus) E11.9 Stroke-like symptoms R29.90 Encounter for pre-operative examination Z01.818 Atrial fibrillation I48.91 Seizure-like activity R56.9 Required emergent intubation Z98.890 Symptomatic bradycardia R00.1 Encephalopathy G93.40
[2023-01-26] MEDS: buPROPion XL 300 MG TABCR PO SCH (08:00)
[2023-01-26] MEDS: ATORVASTATIN 40 MG TAB PO SCH (08:00)
[2023-01-26] MEDS: MONTELUKAST SODIUM 10 MG TABLET PO SCH (08:00)
[2023-01-26] MEDS ORDERED: STAT IV/IM STA ×2 (08:31→18:31)
[2023-01-26] MEDS ORDERED: SODIUM CHLORIDE 3 % 100 ML IV ONE (08:45)
--- NOTE | 2023-01-26 08:48 | Hospitalist Progress Note ---
Date of Service January 26, 2023 Assessment & Plan (1) Acute CVA (cerebrovascular accident): Plan: 67 yo F with type 2 diabetes, hyperlipidemia, asthma- COPD overlap syndrome, obstructive sleep apnea, persistent atrial fibrillation, nonischemic cardiomyopathy, history of CVA, mitral regurgitation, atherosclerosis of coronary artery, morbid obesity, migraine without aura, depression with anxiety presents with strokelike symptoms. Acute CVA Dysarthria Initial workup with CT scan of head and CTA head and neck unremarkable MRI brain - IMPRESSION: 1. Scattered areas of small infarcts involving the insular region, left posterior centrum semiovale and left frontal and parietal cortex. 2. No intracranial hemorrhage. 3. Underlying microangiopathic white matter disease. Echo obtained Speech evaluation Neurology consulted - ok to stop plavix and do heparin bridge to coumadin Cardiology consulted - pt w/ pAfib, hx of CVAs on eliquis - plan to transition to coumadin w/ heparin bridge Stop Eliquis 01/25 Overnight pt had seizure-like episode, was intubated, started on pressors, currently pt is in ICU. Brain MRI repeated today FINDINGS: Increase in size in the acute to subacute left MCA territory infarct, primarily involving the left frontotemporal region. This infarct measures up to 4 cm in size. A orogastric tube is partially visualized. Fluid levels within the sphenoid sinuses and nasopharynx are noted. The mastoid air cells are clear. The major vascular flow-voids at the skull base are well-maintained. There is no mass, hematoma, midline shift. Mild atrophic changes again noted within the brain. There is an old right MCA territory infarct again noted. Vasogenic edema within the left MCA territory infarct has also progressed. IMPRESSION: Interval progression of the now moderate sized acute to subacute left MCA territory infarct as described above. No midline shift or intracranial hemorrhage identified at this time. Discussed w/ Dr. Patricia Campbell per ICU team - pt remains in critical condition EEG ordered and pending 01/26 Pt remains intubated, she is awake, somewhat restless, opens eyes, moves extremities besides RUE Bradycardia History of atrial fibrillation - cont. amiodarone and metoprolol succinate - discussed w/ cardiology echo obtained and reviewed Monitor on telemetry 01/25 Pt now in ICU on pressor support. Cardiology continues to follow closely - pt may need a pacemaker. amiodarone resumed, cont. dopamine History of CVA Continue statin Hold Eliquis transition to coumadin, as above poss. Aspiration posit. blood cultx increased secretions noted, fever - cont. Unasyn and vancomycin for now - follow cultures Diabetes On Mounjaro Hold metformin Insulin sliding scale Follow blood sugars Current HbA1c level 6.1% History of asthma/COPD Continue home inhalers Hypertension - cont. metoprolol succinate Continue losartan Permissive hypertension Now in ICU on pressor support Closely cont. to monitor Obstructive sleep apnea CPAP nightly Depression with anxiety On Wellbutrin and amitriptyline Hyperlipidemia On statin obtained lipid profile, LDL 105 DVT prophylaxis SCDs , heparin, per ICU Disposition: ICU Full code Admission and Anticipated Discharge Date Admission Date: January 23, 2023 Subjective Pt seen in follow up of CVA Pt is intubated in ICU. Family present at the bedside. Pt is awake and somewhat restless. increased secretions noted. Pt moves extremities except for R arm. Opens eyes. No signs of seizures. Review of Systems Review of Systems: Unobtainable due to endotracheal tube Physical Exam Physical Exam: General- elderly obese F, intubated Head- atraumatic Eyes- pupils round small equal Lungs- +rhonchi Heart- regular rhythm; bradycardic, no murmur Abdomen- normal bowel sounds, soft, obese Extremities- trace pretibial edema, no erythema seen. Neuro- limited exam, pt intubated, but awake and moving extremities except for R arm, opens eyes, pupils are small round equal, restless Skin- warm & dry Results & Data Results & Data Vital Signs (Past 12 Hours) Vital Signs Temp Pulse Resp BP Pulse Ox O2 Del Method FiO2 01/26/23 07:25 35 01/26/23 07:20 71 24 94 30 01/26/23 06:00 38.8 C H 68 20 122/53 L 95 Mechanical Vent 01/26/23 05:00 39.2 C H 65 21 132/50 L 95 Mechanical Vent 01/26/23 05:00 30 01/26/23 04:00 38.4 C H 65 22 140/62 92 Mechanical Vent 01/26/23 03:50 57 L 20 96 30 01/26/23 03:00 37.8 C H 58 L 20 112/54 L 96 Mechanical Vent 01/26/23 02:01 37.6 C H 61 28 H 122/99 92 Mechanical Vent 01/26/23 01:36 61 01/26/23 01:03 Mechanical Vent 35 01/26/23 01:00 37.7 C H 59 L 20 136/67 98 Mechanical Vent 01/26/23 01:00 35 01/26/23 00:00 37.8 C H 61 20 148/73 H 95 Mechanical Vent 01/25/23 23:01 38.4 C H 59 L 20 150/68 H 94 Mechanical Vent 01/25/23 22:34 20 30 01/25/23 22:00 38.5 C H 54 L 20 112/60 96 Mechanical Vent 01/25/23 21:00 38.4 C H 59 L 20 128/67 97 Mechanical Vent 01/25/23 21:00 35 Laboratory Results 01/26/23 01/26/23 01/26/23 Range/Units 03:58 00:16 00:14 WBC 14.21 H (4.8-10.8) K/ul RBC 4.28 (4.20-5.40) M/uL Hgb 13.2 (12.0-16.0) g/dl Hct 40.6 (37.0-47.0) % MCV 94.9 (80.0-100.0) fL MCH 30.8 (25.0-34.0) pg MCHC 32.5 (32.0-36.0) g/dL RDW Std Deviation 47.1 H (36.4-46.3) fL RDW Coeff of Yeyo 13.4 (11.5-14.5) % Plt Count 253 (130-400) K/uL MPV 9.8 (9.4-12.4) fL Immature Gran % (Auto) 0.4 % Neut % (Auto) 82.7 % Lymph % (Auto) 9.7 % Mayes % (Auto) 6.4 % Eos % (Auto) 0.6 % Baso % (Auto) 0.2 % Neut # (Auto) 11.75 H (1.40-6.50) K/uL Lymph # (Auto) 1.38 (1.20-3.40) K/uL Mayes # (Auto) 0.91 H (0.11-0.59) K/uL Eos # (Auto) 0.08 (0.00-0.50) K/uL Baso # (Auto) 0.03 (0.00-0.20) K/uL Immature Gran # (Auto) 0.06 (0.01-0.20) K/uL PT 11.6 (9.0-12.0) Seconds INR 1.1 (0.9-1.1) APTT 48.9 H* (21.0-31.0) Seconds PTT Ratio 1.7 Sodium 135 L (136-145) mmol/L Potassium 3.9 (3.5-5.1) mmol/L Chloride 102 (98-107) mmol/L Carbon Dioxide 27 (21-32) mmol/L Anion Gap 6 (3-11) BUN 8 (6-23) mg/dl Creatinine 0.68 (0.6-1.2) mg/dl Est Cr Clr Drug Dosing 94.8 ml/min Est GFR ( Amer) 104.2 ml/min Est GFR (Non-Af Amer) 89.9 ml/min BUN/Creatinine Ratio 11.8 (10-20) Glucose 164 H (70-99(Fasting)) mg/dl POC Glucose (70-99) mg/dl POC Glucose (other) (70-99) mg/dl Calcium 8.8 (8.6-10.3) mg/dl Phosphorus 3.2 (2.5-4.9) mg/dl Magnesium 1.8 (1.7-2.4) mg/dl Procalcitonin 0.07 (0-0.5) ng/ml Nasal Screen MRSA (PCR) Negative (Negative) Staphylococcus sp PCR (NotDetected) mecA/C-Methicil Resis Gene (NotDetected) Staph epidermidis (PCR) (NotDetected) Bld Cult ID Panel PCR (NotDetected) 01/26/23 01/25/23 01/25/23 Range/Units 00:07 19:36 18:23 WBC (4.8-10.8) K/ul RBC (4.20-5.40) M/uL Hgb (12.0-16.0) g/dl Hct (37.0-47.0) % MCV (80.0-100.0) fL MCH (25.0-34.0) pg MCHC (32.0-36.0) g/dL RDW Std Deviation (36.4-46.3) fL RDW Coeff of Yeyo (11.5-14.5) % Plt Count (130-400) K/uL MPV (9.4-12.4) fL Immature Gran % (Auto) % Neut % (Auto) % Lymph % (Auto) % Mayes % (Auto) % Eos % (Auto) % Baso % (Auto) % Neut # (Auto) (1.40-6.50) K/uL Lymph # (Auto) (1.20-3.40) K/uL Mayes # (Auto) (0.11-0.59) K/uL Eos # (Auto) (0.00-0.50) K/uL Baso # (Auto) (0.00-0.20) K/uL Immature Gran # (Auto) (0.01-0.20) K/uL PT (9.0-12.0) Seconds INR (0.9-1.1) APTT 42.6 H* (21.0-31.0) Seconds PTT Ratio 1.5 Sodium (136-145) mmol/L Potassium (3.5-5.1) mmol/L Chloride (98-107) mmol/L Carbon Dioxide (21-32) mmol/L Anion Gap (3-11) BUN (6-23) mg/dl Creatinine (0.6-1.2) mg/dl Est Cr Clr Drug Dosing ml/min Est GFR ( Amer) ml/min Est GFR (Non-Af Amer) ml/min BUN/Creatinine Ratio (10-20) Glucose (70-99(Fasting)) mg/dl POC Glucose 171 H (70-99) mg/dl POC Glucose (other) 174 H (70-99) mg/dl Calcium (8.6-10.3) mg/dl Phosphorus (2.5-4.9) mg/dl Magnesium (1.7-2.4) mg/dl Procalcitonin (0-0.5) ng/ml Nasal Screen MRSA (PCR) (Negative) Staphylococcus sp PCR (NotDetected) mecA/C-Methicil Resis Gene (NotDetected) Staph epidermidis (PCR) (NotDetected) Bld Cult ID Panel PCR (NotDetected) 01/25/23 01/25/23 01/25/23 Range/Units 13:48 10:30 03:45 WBC (4.8-10.8) K/ul RBC (4.20-5.40) M/uL Hgb (12.0-16.0) g/dl Hct (37.0-47.0) % MCV (80.0-100.0) fL MCH (25.0-34.0) pg MCHC (32.0-36.0) g/dL RDW Std Deviation (36.4-46.3) fL RDW Coeff of Yeyo (11.5-14.5) % Plt Count (130-400) K/uL MPV (9.4-12.4) fL Immature Gran % (Auto) % Neut % (Auto) % Lymph % (Auto) % Mayes % (Auto) % Eos % (Auto) % Baso % (Auto) % Neut # (Auto) (1.40-6.50) K/uL Lymph # (Auto) (1.20-3.40) K/uL Mayes # (Auto) (0.11-0.59) K/uL Eos # (Auto) (0.00-0.50) K/uL Baso # (Auto) (0.00-0.20) K/uL Immature Gran # (Auto) (0.01-0.20) K/uL PT (9.0-12.0) Seconds INR (0.9-1.1) APTT 38.4 H (21.0-31.0) Seconds PTT Ratio 1.4 Sodium (136-145) mmol/L Potassium (3.5-5.1) mmol/L Chloride (98-107) mmol/L Carbon Dioxide (21-32) mmol/L Anion Gap (3-11) BUN (6-23) mg/dl Creatinine (0.6-1.2) mg/dl Est Cr Clr Drug Dosing ml/min Est GFR ( Amer) ml/min Est GFR (Non-Af Amer) ml/min BUN/Creatinine Ratio (10-20) Glucose (70-99(Fasting)) mg/dl POC Glucose 115 H (70-99) mg/dl POC Glucose (other) (70-99) mg/dl Calcium (8.6-10.3) mg/dl Phosphorus (2.5-4.9) mg/dl Magnesium (1.7-2.4) mg/dl Procalcitonin (0-0.5) ng/ml Nasal Screen MRSA (PCR) (Negative) Staphylococcus sp PCR DETECTED A (NotDetected) mecA/C-Methicil Resis Gene DETECTED A (NotDetected) Staph epidermidis (PCR) DETECTED A (NotDetected) Bld Cult ID Panel PCR See PCR Comment (NotDetected) Medications Administered Current Inpatient Medications Acetaminophen (Acetaminophen 325 Mg Tab) 650 mg PO Q4H PRN PRN Reason: Fever/Mild Pain (Pain 1,2,3) Stop: 02/24/23 02:41 Last Admin: 01/26/23 07:58 Dose: 650 mg Amiodarone HCl (Amiodarone 200 Mg Tab) 200 mg PO BIDM [facility] Stop: 02/23/23 16:59 Last Admin: 01/25/23 10:39 Dose: Not Given Atorvastatin Calcium (Atorvastatin 40 Mg Tab) 80 mg PO QAM LYLY Stop: 02/24/23 08:59 Last Admin: 01/26/23 08:00 Dose: 80 mg Bupropion HCl (Bupropion Xl 300 Mg Tabcr) 300 mg PO DAILY LYLY Stop: 02/23/23 08:59 Last Admin: 01/26/23 08:00 Dose: 300 mg Dextrose (Dextrose 50% 50 Ml Syringe) 25 - 50 ml IV UD PRN; Protocol PRN Reason: Hypoglycemia Protocol Stop: 02/23/23 00:12 Fentanyl Citrate (Fentanyl Bolus From Bag) 50 mcg IV Q60M PRN PRN Reason: Pain or Agitation Stop: 02/08/23 02:41 Last Admin: 01/26/23 04:07 Dose: 50 mcg Fluticasone Furoate (Fluticasone Furoate 200mcg 14 Puffs/Inhaler) 1 puffs INH DAILY LYLY Stop: 02/23/23 08:59 Last Admin: 01/25/23 09:58 Dose: Not Given Gabapentin (Gabapentin 100 Mg Cap) 100 mg PO BID LYLY Stop: 02/23/23 08:59 Last Admin: 01/25/23 20:03 Dose: 100 mg Glucagon (Glucagon For Inj 1 Mg Vial) 1 mg SQ UD PRN; Protocol PRN Reason: Hypoglycemia Protocol Stop: 02/23/23 00:12 Glucose (Glucose 10 Tab/Tube) 4 - 8 tab PO UD PRN; Protocol PRN Reason: Hypoglycemia Treatment Stop: 02/23/23 00:12 Glucose (Glucose 40% Gel 15 Gm Tube) 15 - 30 gm PO UD PRN; Protocol PRN Reason: Hypoglycemia Protocol Stop: 02/23/23 00:12 Dopamine HCl/Dextrose (Dopamine / D5w) 400 mg in 250 mls @ 27.405 mls/hr IV .Q9H8M LYLY; Protocol Stop: 02/24/23 01:29 Last Titration: 01/26/23 07:51 Dose: 7 mcg/kg/min, 27.4 mls/hr Norepinephrine Bitartrate (Levophed/D5w) 4 mg in 250 mls @ 0 mls/hr IV .Q0M LYLY; Protocol Stop: 02/24/23 01:59 Last Titration: 01/25/23 19:13 Dose: 0 mcg/kg/min, 0 mls/hr Propofol (Diprivan) 1,000 mg in 100 mls @ 0 mls/hr IV .Q0M LYLY; Protocol Stop: 01/28/23 02:29 Last Titration: 01/26/23 07:51 Dose: 0 mcg/kg/min, 0 mls/hr Heparin Sodium/Dextrose (Heparin Sodium/Dextrose) 25,000 units in 500 mls @ 20 mls/hr IV .Q24H LYLY; Protocol Stop: 02/24/23 02:44 Last Titration: 01/26/23 05:25 Dose: 1,000 units/hr, 20 mls/hr Fentanyl Citrate (Fentanyl Citrate) 2,500 mcg in 250 mls @ 0 mls/hr IV .Q0M LYLY; Protocol Stop: 02/08/23 02:44 Last Titration: 01/26/23 07:51 Dose: 0 mcg/hr, 0 mls/hr Levetiracetam 1,000 mg/ Sodium (Chloride) 110 mls @ 440 mls/hr IV BID LYLY Stop: 02/25/23 08:59 Magnesium Sulfate/Dextrose (Magnesium Sulfate / D5w) 1 gm in 100 mls @ 50 mls/hr IV Q2H LYLY Stop: 01/26/23 10:14 Last Admin: 01/26/23 08:21 Dose: 50 mls/hr Vancomycin HCl 1,250 mg/ (Sodium Chloride) 275 mls @ 200 mls/hr IV Q12H [facility] Stop: 02/09/23 09:59 Ampicillin Sodium/Sulbactam Sodium 3,000 mg/ Sodium Chloride 100 mls @ 100 mls/hr IV Q6H [facility] Stop: 02/02/23 08:59 Sodium Chloride (Hypertonic Saline 3%) 500 mls @ 15 mls/hr IV .Q24H [facility]; Protocol Stop: 01/28/23 08:54 Sodium Chloride (Hypertonic Saline 3%) 100 mls @ 600 mls/hr IV .Q10M ONE; Protocol Stop: 01/26/23 08:54 Insulin Aspart (Insulin Aspart Per Unit Charge) 0 units SC Q6 LYLY Stop: 02/23/23 20:59 Last Admin: 01/26/23 05:53 Dose: 2 units Losartan Potassium (Losartan Potassium 50 Mg Tab) 50 mg PO DAILY [facility] Stop: 02/23/23 08:59 Last Admin: 01/24/23 07:37 Dose: 50 mg Metoprolol Succinate (Metoprolol Succ 50mg Ext Rel Tab) 100 mg PO BID [facility] Stop: 02/23/23 20:59 Last Admin: 01/24/23 20:00 Dose: 100 mg Miscellaneous (Carbohydrates For Hypoglycemia ) 15 - 30 gm PO UD PRN PRN Reason: Hypoglycemia Protocol Stop: 02/23/23 00:12 Miscellaneous Information (Pharmacist Discharge Med Rec Consult) 1 each N/A UD PRN PRN Reason: Consult Stop: 02/23/23 00:12 Miscellaneous Information (Vancomycin Consult Active) 1 each N/A UD PRN PRN Reason: Consult Stop: 02/24/23 23:58 Montelukast Sodium (Montelukast Sodium 10 Mg Tablet) 10 mg PO DAILY [facility] Stop: 02/23/23 08:59 Last Admin: 01/26/23 08:00 Dose: 10 mg Nitroglycerin (Nitroglycerin Sl 0.4 Mg/Tab Tab) 0.4 mg SL Q5M PRN PRN Reason: Chest Pain Stop: 02/23/23 00:12 Nortriptyline HCl (Nortriptyline Hcl 25 Mg Cap) 25 mg PO HS [facility] Stop: 02/23/23 20:59 Last Admin: 01/24/23 20:00 Dose: 25 mg Propofol (Propofol Bolus From Bag) 20 mg IV Q5M PRN PRN Reason: Sedation Stop: 01/28/23 02:16 Last Admin: 01/26/23 03:30 Dose: 20 mg Zinc Acetate/Diphenhydramine (Diphenhydramine 2%/Zinc 0.1% Cream 28.4gm Tube) 1 appln EXT BID PRN PRN Reason: Itching Stop: 02/23/23 05:55 Last Admin: 01/24/23 20:02 Dose: 1 appln
[2023-01-26] MEDS ORDERED: AMIODARONE 200 MG TAB PO ONE (09:15)
[2023-01-26 09:38] LABS: C Reactive Protein 22.98 mg/dl (0-0.5); Creatinine Clr Calc Pharmacy 78.6 ml/min; Est GFR (African American) 85.2 ml/min; Est GFR (Non-African American) 73.5 ml/min; Potassium 3.9 mmol/L (3.5-5.1)
[2023-01-26] MEDS ORDERED: VANCOMYCIN HCL 1,250 MG in SODIUM CHLORIDE 0.9% 250 ML IV SCH (10:00)
[2023-01-26] MEDS: levETIRAcetam 1,000 MG in 0.9 % SODIUM CHLORIDE 100 ML IV SCH ×2 (10:25→20:11)
[2023-01-26] MEDS: AMPICILLIN/SULBACTAM SOD 3,000 MG in SODIUM CHLOR 0.9% MINI-B 100 ML IV SCH ×3 (10:25→20:41)
--- NOTE | 2023-01-26 10:27 | Cardiology Progress Note ---
Date of Service January 26, 2023 Assessment & Plan (1) Acute CVA (cerebrovascular accident): (2) Paroxysmal atrial fibrillation: (3) Tachycardia-bradycardia syndrome: (4) Symptomatic bradycardia: Plan Complex 67-year-old female presenting with cerebrovascular accident and Eliquis failure. Developed seizure-like activity early a.m. 01/25 requiring intubation with significant bradycardia on telemetry. Beta-omar and amiodarone placed on hold 01/25/2023. Heart rate improved, although continues to require dopamine for blood pressure support. Possible early sepsis with fevers overnight. I have concerns patient could revert to atrial fibrillation. Risk versus benefit of restarting amiodarone discussed with both critical care and family at bedside. Will proceed with amiodarone 200 mg twice daily. Continue to hold metoprolol at this time. Continue IV heparin. Ultimately, plan transition to warfarin. Potential need for possible pacemaker insertion during hospitalization discussed with family at bedside. Continue empiric antibiotics. Initial blood culture result likely contaminant. Await culture results. Admission and Anticipated Discharge Date Admission Date: January 23, 2023 Subjective Patient seen and examined. Sedation withdrawn. Opening her eyes with leftward gaze. Not following commands. Wandering eye movements noted. Heart rate improved on telemetry. Currently sinus rhythm in the 60s. Norepinephrine discontinued. Low-dose dopamine infusing. No recurrent bradycardia. No pauses recorded. Patient febrile overnight. Cultures drawn. Empiric antibiotic therapy with Unasyn and vancomycin. Daughter present at bedside. Review of Systems Review of Systems: Unobtainable due to endotracheal tube Physical Exam Constitutional: well developed and well nourished; no acute distress Respiratory: no respiratory distress and no labored breathing Auscultation: no crackles, no rales, no rhonchi and no wheezes Cardiovascular: Rate/Rhythm: regular rate, regular rhythm and + bradycardic Heart Sounds: normal S1, normal S2 and + murmur (1/6 systolic ejection murmur heard at the base) Vessels: no JVD Extremities: no edema Gastrointestinal (Abdomen): Inspection/Auscultation: abdomen normal to inspection and normal bowel sounds; abdomen not distended Percussion/Palpation: abdomen nontender, no guarding and abdomen not rigid Neurologic: Opens eyes spontaneously. Does not follow commands. Leftward gaze. Results & Data Vital Signs (Past 12 Hours) Vital Signs Temp Pulse Resp BP Pulse Ox O2 Del Method FiO2 01/26/23 07:25 35 01/26/23 07:20 71 24 94 30 01/26/23 06:00 38.8 C H 68 20 122/53 L 95 Mechanical Vent 01/26/23 05:00 39.2 C H 65 21 132/50 L 95 Mechanical Vent 01/26/23 05:00 30 01/26/23 04:00 38.4 C H 65 22 140/62 92 Mechanical Vent 01/26/23 03:50 57 L 20 96 30 01/26/23 03:00 37.8 C H 58 L 20 112/54 L 96 Mechanical Vent 01/26/23 02:01 37.6 C H 61 28 H 122/99 92 Mechanical Vent 01/26/23 01:36 61 01/26/23 01:03 Mechanical Vent 35 01/26/23 01:00 37.7 C H 59 L 20 136/67 98 Mechanical Vent 01/26/23 01:00 35 01/26/23 00:00 37.8 C H 61 20 148/73 H 95 Mechanical Vent 01/25/23 23:01 38.4 C H 59 L 20 150/68 H 94 Mechanical Vent 01/25/23 22:34 20 30 Laboratory Results Coagulation 01/25/23 01/25/23 01/26/23 Range/Units 10:30 19:36 03:58 PT 11.6 (9.0-12.0) Seconds APTT 38.4 H 42.6 H* 48.9 H* (21.0-31.0) Seconds CBC 01/26/23 Range/Units 03:58 WBC 14.21 H (4.8-10.8) K/ul RBC 4.28 (4.20-5.40) M/uL Hgb 13.2 (12.0-16.0) g/dl Hct 40.6 (37.0-47.0) % Plt Count 253 (130-400) K/uL Neut # (Auto) 11.75 H (1.40-6.50) K/uL Lymph # (Auto) 1.38 (1.20-3.40) K/uL [place] # (Auto) 0.91 H (0.11-0.59) K/uL Eos # (Auto) 0.08 (0.00-0.50) K/uL Baso # (Auto) 0.03 (0.00-0.20) K/uL Comprehensive Metabolic Panel 01/26/23 01/26/23 Range/Units 03:58 09:05 Sodium 135 L 134 L (136-145) mmol/L Potassium 3.9 3.9 (3.5-5.1) mmol/L Chloride 102 101 (98-107) mmol/L Carbon Dioxide 27 25 (21-32) mmol/L BUN 8 9 (6-23) mg/dl Creatinine 0.68 0.82 (0.6-1.2) mg/dl Glucose 164 H 177 H (70-99(Fasting)) mg/dl Calcium 8.8 9.0 (8.6-10.3) mg/dl Intake and Output 01/25/23 01/26/23 01/26/23 22:59 06:59 14:59 Intake Total 1212.262 / 2638.577 1016.808 / 2638.577 392.070 / 392.070 Output Total 530 / 1810 780 / 1810 Balance 682.262 / 828.577 236.808 / 828.577 392.070 / 392.070 Intake: IV 1212.262 / 2638.577 1016.808 / 2638.577 392.070 / 392.070 Acetaminophen 1,000 mg In 100 100 / 100 ml @ 400 mls/hr IV NOW STA Rx#: [id number] Ampicillin/Sulbactam Sod 3,000 100 / 100 mg In Sodium Chlor 0.9% Mini-B 100 ml @ 100 mls/hr IV Q6H LYLY Rx#:[id number] DOPamine / D5W 400 mg In 250 ml 320.123 / 565.080 142.56 / 565.080 235.236 / 235.236 @ 9 MCG/KG/MIN 35.235 mls/hr IV .Q7H6M LYLY Rx#:[id number] Heparin Sodium/Dextrose 25,000 166.000 / 481.333 153.333 / 481.333 units In 500 ml @ 1,000 UNITS/ HR 20 mls/hr IV .Q24H LYLY Rx#: [id number] Magnesium Sulfate / D5w 1 gm In 84.167 / 84.167 100 ml @ 50 mls/hr IV Q2H [facility] Rx#:[id number] Norepinephrine/D5w 4 mg In 250 0 / 45.11 ml @ 0 MCG/KG/MIN IV .Q0M LYLY Rx#:[id number] Vancomycin HCl 2,500 mg In 550 / 550 Sodium Chloride 0.9% 500 ml @ 180 mls/hr IV NOW STA Rx#: [id number] fentaNYL citrate 2,500 mcg In 64.333 / 93.083 28.75 / 93.083 51.625 / 51.625 250 ml @ 75 MCG/HR 7.5 mls/hr IV .[id number] [facility] Rx#:[id number] levETIRAcetam 2,000 mg In 270 / 270 Sodium Chloride 0.9% 250 ml @ 999 mls/hr IV NOW STA Rx#: [id number] propofoL 1,000 mg In 100 ml @ 191.806 / 333.971 142.165 / 333.971 21.042 / 21.042 35 MCG/KG/MIN 21.924 mls/hr IV .Q4H34M [facility] Rx#:[id number] Output: Urine Amount (Catheter) 530 / 1810 780 / 1810 La/Indwelling 530 / 1810 780 / 1810 Other: Other Intake Source npo npo Weight 100.6 kg Weight Measurement Method Built in [facility]
[2023-01-26] MEDS: SODIUM CHLORIDE 3 % 500 ML IV SCH (10:41)
[2023-01-26] MEDS ORDERED: LORazepam 0.5 MG TAB PO PRN (10:51)
[2023-01-26] MEDS: GABAPENTIN 100 MG CAP PO SCH ×2 (10:52→20:11)
[2023-01-26] MEDS: FLUTICASONE FUROATE 200MCG 14 PUFFS/INHALER INH SCH (10:52)
--- NOTE | 2023-01-26 11:01 | Pharmacy Report ---
Pharmacy PK ABX Note - Date of Service January 26, 2023 - Assessment and Plan Assessment 67 year old F receiving vancomycin for positive blood culture- MRSE 2/4 (same set), plan to continue vancomycin today with possible de-escalation in the next 24 hours depending on further culture results. Suspect contamination. ALso on unasyn with elevated white blood cell count, sputum cultures pending. Plan Vancomycin * Loading dose: 2500 mg IV x 1 * Maintenance dose: 1000 mg IV every 12 hours * Regimen is predicted to achieve target AUC/PAZ of 400-600 mg/L.hr * Random level to be ordered if continued >48 hours Pharmacy will continue to follow and will adjust dose/frequency as necessary. Thank you. Pharmacy has transitioned to AUC monitoring for vancomycin. AUC/PAZ is the preferred PK/PD target and is associated with decreased risk of nephrotoxicity compared to traditional trough targets.
[2023-01-26] MEDS ORDERED: PEPTAMEN INTENSE VHP 1.0 CAL 1,000 ML BAG OG SCH (11:15)
[2023-01-26 13:10] LABS: BUN Creatinine Ratio 12.3 (10-20); Calcium 8.5 mg/dl (8.6-10.3); Creatinine Clr Calc Pharmacy 88.3 ml/min; Est GFR (African American) 98.1 ml/min; Est GFR (Non-African American) 84.6 ml/min; Potassium 3.9 mmol/L (3.5-5.1)
--- NOTE | 2023-01-26 13:43 | XRay Report ---
XR chest 1V portable CLINICAL HISTORY: while intubated eval tubes, lines, and lung hankins TECHNIQUE: Single frontal radiograph of the chest was obtained. Comparison: Comparison is made to chest radiograph 01/25/2023 FINDINGS: Lines and tubes are stable. Cardiomegaly is noted. Atelectasis at the left lung base. No evidence of pleural effusion or pneumothorax. IMPRESSION: Stable exam with no evidence of left pneumothorax, previously noted apical lucency is likely artifact ual. ACT 112: Negative or not required by law. Electronically signed by: Chong Cook M.D. 01/26/2023 1:41 PM
[2023-01-26] MEDS: TUBE FEEDING WATER FLUSH NG SCH ×3 (15:07→20:10)
[2023-01-26] MEDS: fentaNYL citrate 2,500 MCG/250 ML BAG IV SCH (17:10)
[2023-01-26] MEDS: AMIODARONE 200 MG TAB PO SCH (17:10)
[2023-01-26 17:37] LABS: Calcium 8.6 mg/dl (8.6-10.3); Potassium 4.1 mmol/L (3.5-5.1)
[2023-01-26 17:43] LABS: BUN Creatinine Ratio 12.7 (10-20); Creatinine Clr Calc Pharmacy 90.8 ml/min; Est GFR (African American) 101.4 ml/min; Est GFR (Non-African American) 87.5 ml/min
[2023-01-26] MEDS ORDERED: Nursing to Pharmacy Communication SCH (18:15)
[2023-01-26] MEDS ORDERED: SODIUM CHLORIDE 3 % 300 ML IV ONE (18:31)
--- NOTE | 2023-01-26 20:32 | XRay Report ---
XR chest 1V portable CLINICAL HISTORY: while intubated eval tubes, lines, and lung hankins TECHNIQUE: Single frontal radiograph of the chest was obtained. Comparison: Comparison is made to chest radiograph 01/26/2023 FINDINGS: Lines and tubes are stable. Cardiomegaly is noted. The aortic arch is calcified. Prominence and cepha lization of the vasculature is seen. No evidence of pleural effusion or pneumothorax. IMPRESSION: Cardiomegaly and mild pulmonary edema. ACT 112: Negative or not required by law. Electronically signed by: Chong Cook M.D. 01/26/2023 8:30 PM
[2023-01-26 20:42] LABS: BUN Creatinine Ratio 13.7 (10-20); Calcium 8.5 mg/dl (8.6-10.3); Creatinine Clr Calc Pharmacy 88.3 ml/min; Est GFR (African American) 98.1 ml/min; Est GFR (Non-African American) 84.6 ml/min; Potassium 3.9 mmol/L (3.5-5.1)
[2023-01-26 21:20] LABS: BUN Creatinine Ratio 14.1 (10-20); Calcium 8.2 mg/dl (8.6-10.3); Creatinine Clr Calc Pharmacy 90.8 ml/min; Est GFR (African American) 101.4 ml/min; Est GFR (Non-African American) 87.5 ml/min; Potassium 4.1 mmol/L (3.5-5.1)
[2023-01-26 21:25] LABS: iSTAT Art Bld Gas pCO2 Correct 43 mmHg (35-46); iSTAT Art Bld Gas pH Corrected 7.318 (7.35-7.45); iSTAT Arterial Blood Gas HCO3 22 meg/L (19-24); iSTAT Arterial Blood Gas pCO2 43 mmHg (35-46); iSTAT Arterial Blood Gas pH 7.32 (7.35-7.45); iSTAT Arterial Blood Gas pO2 76 mmHg (80-95); iSTAT Arterial Blood Gas pO2 C 76; iSTAT Carbon Dioxide 23 mmol/L (24-31); iSTAT FiO2 35 %; iSTAT Hematocrit 36 % (37-47); iSTAT Hemoglobin 12.2 g/dl (12.0-16.0); iSTAT Potassium 4.1 mmol/L (3.3-5.0); iSTAT Site Art Line; iSTAT Sodium 139 mmol/L (135-144)
[2023-01-26] MEDS ORDERED: VANCOMYCIN HCL 1,000 MG in SODIUM CHLORIDE 0.9% 250 ML IV SCH (22:00)
[2023-01-27 00:30] LABS: BUN Creatinine Ratio 15.2 (10-20); Calcium 8.2 mg/dl (8.6-10.3); Creatinine Clr Calc Pharmacy 97.6 ml/min; Est GFR (African American) 105.2 ml/min; Est GFR (Non-African American) 90.8 ml/min; Potassium 3.7 mmol/L (3.5-5.1)
[2023-01-27] MEDS ORDERED: STAT IV/IM STA (00:41)
[2023-01-27] MEDS ORDERED: SODIUM CHLORIDE 3 % 300 ML IV ONE (00:41)
[2023-01-27] MEDS: TUBE FEEDING WATER FLUSH NG SCH ×6 (00:51→20:20)
[2023-01-27] MEDS: DOPamine / D5W 400 MG/250 ML BAG IV SCH ×3 (02:19→16:21)
[2023-01-27] MEDS: AMPICILLIN/SULBACTAM SOD 3,000 MG in SODIUM CHLOR 0.9% MINI-B 100 ML IV SCH ×4 (03:41→20:19)
[2023-01-27 05:02] LABS: Basophils # (auto) 0.01 K/uL (0.00-0.20); Basophils % (auto) 0.1 %; Eosinophils # (auto) 0.09 K/uL (0.00-0.50); Hematocrit (blood only) 34.1 % (37.0-47.0); Hemoglobin 11.5 g/dl (12.0-16.0); Immature Granulocytes # (auto) 0.05 K/uL (0.01-0.20); Immature Granulocytes % (auto) 0.6 %; Lymphocytes # (auto) 1.02 K/uL (1.20-3.40); Lymphocytes % (auto) 11.8 %; Mean Corpuscular Hemoglobin 31.8 pg (25.0-34.0); Mean Corpuscular Hgb Conc 33.7 g/dL (32.0-36.0); Mean Corpuscular Volume 94.2 fL (80.0-100.0); Mean Platelet Volume 9.9 fL (9.4-12.4); Monocytes # (auto) 0.78 K/uL (0.11-0.59); Neutrophils # (auto) 6.73 K/uL (1.40-6.50); Neutrophils % (auto) 77.5 %; Platelet Count 199 K/uL (130-400); RDW Coefficient of Variation 13.4 % (11.5-14.5); RDW Standard Deviation 46.3 fL (36.4-46.3); Red Blood Count 3.62 M/uL (4.20-5.40); White Blood Count 8.68 K/ul (4.8-10.8)
[2023-01-27] MEDS: HEPARIN SODIUM/DEXTROSE 25,000 UNITS/500 ML BAG IV SCH (05:07)
[2023-01-27 05:31] LABS: BUN Creatinine Ratio 15.5 (10-20); Calcium 8.1 mg/dl (8.6-10.3); Creatinine Clr Calc Pharmacy 111.8 ml/min; Est GFR (African American) 109.8 ml/min; Est GFR (Non-African American) 94.7 ml/min; Magnesium 1.9 mg/dl (1.7-2.4); Phosphorus 2.1 mg/dl (2.5-4.9); Potassium 3.6 mmol/L (3.5-5.1)
[2023-01-27 05:48] LABS: INR 1.1 (0.9-1.1); Partial Thromboplastin Ratio 1.9
[2023-01-27 06:30] LABS: Partial Thromboplastin Time 54.3 Seconds (21.0-31.0)
[2023-01-27] MEDS: propofoL 1,000 MG/100 ML VIAL IV SCH ×3 (06:37→20:11)
--- NOTE | 2023-01-27 07:20 | XRay Report ---
XR chest 1V portable HISTORY: 67 years-old Female resp failure acute respiratory failure COMPARISON: 01/26/2023 TECHNIQUE: AP view of the chest FINDINGS: Cardiac silhouette is enlarged. Right IJ central venous catheter distal tip projects over the right a trium. Endotracheal tube overlies the midline, 1.6 cm superior to the lewis. Enteric tube courses in to the stomach with distal tip outside the [id number]. No pneumothorax, or pleural effusion. Pulmo nary vascular congestion with persistent ill-defined bilateral airspace opacities, most pronounced in the left lung base. IMPRESSION: 1. Lines and tubes as above. 2. No pneumothorax. 3. Unchanged appearance of the lungs. ACT 112: Negative or not required by law. The above report was generated using voice recognition software. It may contain grammatical, syntax o r spelling errors. Electronically signed by: Morris Garcia M.D. 01/27/2023 7:19 AM
[2023-01-27] MEDS ORDERED: POTASSIUM PHOS 3 MMOL/1 ML INFUSION IV STA (08:17)
[2023-01-27] MEDS: MAGNESIUM SULFATE / D5W 1 GM/100 ML BAG IV SCH ×2 (08:24→10:19)
--- NOTE | 2023-01-27 08:26 | Pulmonology Progress Note ---
Date of Service January 27, 2023 Assessment & Plan (1) Acute CVA (cerebrovascular accident): (2) Sleep apnea: (3) T2DM (type 2 diabetes mellitus): (4) Stroke-like symptoms: (5) Encounter for pre-operative examination: (6) Atrial fibrillation: (7) Seizure-like activity: (8) Required emergent intubation: (9) Symptomatic bradycardia: (10) Encephalopathy: Plan Reason Critically Ill: Patient with reported seizure like activity remained encephalopathic/post ictal, required emergent intubation for sedation to rule out intracranial process, as well as symptomatic bradycardia requiring vasoactive support. Recommendations: Neuro -- Recurrent CVA Likely secondary to Eliquis failure. CT shows progression of stroke with surrounding vasogenic edema. Keep head of bed elevated at 30 degrees. Echo with bubble showed no [id number] shunt. Patient's daughter was offered transfer [facility] given the vasogenic edema and multifocal strokes. She is comfortable keeping her here for now. Continue Keppra EEG did not show any seizure-like activity. Cardiac - -- Tachycardia better syndrome Currently on dopamine Continue to hold beta-blockers May require permanent pacemaker Echocardiogram demonstrated severe pulmonary hypertension. Sinew with heparin drip Cardiology on board Respiratory - -- VDRF Likely secondary to altered mental status with acute stroke Continue with ventilatory support Keep RASS -1 GI Continue with tube feeds RENAL/LYTES - Monitor BUNs/creatinine - - Continue La catheter ENDO - glycemic control per protocol. HEME - NO acute concerns at this time ID - -- Blood culture showing staph epi which is likely contaminant, repeat blood culture negative to date Procalcitonin 0.2 Vancomycin discontinued Continue with Unasyn for 7 days --Prophylaxis VTE: Heparin drip GI: Pantoprazole Lines: Right IJ, right radial, positive La, positive ETT Diet: Tube feeds Plan: In/out: +2.7 L, urine output 1275, +7.2 L since coming to the hospital Chest x-ray today shows ET tube 1.8 cm from the lewis, will retracted by 1 cm. Will give the patient 20 mg of Lasix. Try to go down on sedation as much as possible and put the patient on pressure support. Electrolytes are being replaced. Continue with Keppra. Continue with dopamine given the bradycardic episodes that the patient is having. Overall prognosis is guarded. Neurological prognosis will be decided in the next couple of days. Case discussed with neurology Patient's daughter at bedside was also updated I have personally spent 46 minutes of critical care time in the direct management of this patient. This is a life/limb threatening event. This includes time spent evaluating patient, direct bedside care, chart review, placing orders, interpretation of diagnostic studies, discussion with consultants, patient, and family members, as well as other required patient management activities. This time is exclusive of all separately billable procedures, and teaching time and separate from and in addition to any other critical care service time. Admission and Anticipated Discharge Date Admission Date: January 23, 2023 Subjective Patient seen and examined at bedside. No acute distress, no adverse events overnight Patient was on dopamine 7, fentanyl 75, propofol 15 at the time of examination Patient's daughter was also in the room. She was breathing with the vent. Heart rate was in the 60s. Review of Systems 2 Review of Systems: Unobtainable due to endotracheal tube Physical Exam 2 Physical Exam: Constitutional: No acute distress HEENT: PERRLA, sluggish pupillary response Respiratory system: Decreased air entry bilaterally, no wheeze, no rhonchi, positive crackles bilateral lower lobes CVS: S1-S2 positive, no murmurs or gallops Abdomen: Soft, nontender, nondistended, positive bowel sounds x4 Extremities: +2 pulses bilaterally radialis/ dorsalis pedis, no cyanosis, no edema Neuro: Positive pupillary sluggish, positive gag, positive corneal, breathing over the vent, able to move left upper extremity as well as bilateral lower extremity, no movement in the right upper extremity, 2/5 strength right lower extremity Psych: Unable to assess G/U: Positive La Skin: no rashes, warm and dry Lymphatic: no cervical or axillary lymphadenopathy Results & Data Results & Data Vital Signs (Past 12 Hours) Vital Signs Temp Pulse Resp BP Pulse Ox Pulse Ox O2 Del Method 01/27/23 07:15 57 L 20 93 01/27/23 05:01 36.9 C 66 20 92 01/27/23 05:01 114/64 01/27/23 05:00 36.9 C 65 20 95 01/27/23 04:45 78 12 01/27/23 04:30 63 20 98 01/27/23 04:29 59 L 20 99 01/27/23 04:15 61 20 98 01/27/23 04:01 59 L 20 100 01/27/23 04:01 125/59 L 01/27/23 04:00 63 22 97 01/27/23 04:00 01/27/23 04:00 159/58 H 01/27/23 03:45 59 L 20 99 01/27/23 03:30 59 L 17 99 01/27/23 03:15 59 L 17 100 01/27/23 03:01 59 L 20 100 01/27/23 03:01 136/62 01/27/23 03:00 58 L 18 100 01/27/23 02:45 65 20 97 01/27/23 02:30 63 18 95 01/27/23 02:15 63 18 94 01/27/23 02:01 37.1 C 156/69 H 01/27/23 02:01 63 20 96 01/27/23 02:00 62 17 97 01/27/23 01:32 75 01/27/23 01:30 70 17 96 01/27/23 01:00 172/88 H 01/27/23 01:00 73 17 96 01/27/23 00:30 68 17 96 01/27/23 00:19 01/27/23 00:01 67 20 97 01/27/23 00:01 147/65 H 01/27/23 00:00 67 18 97 01/27/23 00:00 95 Mechanical Vent 01/27/23 00:00 187/70 H 01/26/23 23:45 68 18 97 01/26/23 23:30 71 18 98 01/26/23 23:15 72 18 99 01/26/23 23:00 162/66 H 01/26/23 23:00 72 17 100 01/26/23 22:48 70 20 96 01/26/23 22:45 38.0 C H 83 13 84 L 01/26/23 22:30 73 17 93 01/26/23 22:15 70 18 97 01/26/23 22:00 136/61 01/26/23 22:00 66 18 97 01/26/23 21:45 67 18 97 01/26/23 21:30 66 18 99 01/26/23 21:15 67 18 97 01/26/23 21:01 68 23 98 01/26/23 21:01 113/63 01/26/23 21:00 69 18 98 01/26/23 21:00 01/26/23 20:45 75 17 82 L 01/26/23 20:30 73 19 71 L FiO2 01/27/23 07:15 30 01/27/23 05:01 01/27/23 05:01 01/27/23 05:00 01/27/23 04:45 01/27/23 04:30 01/27/23 04:29 30 01/27/23 04:15 01/27/23 04:01 01/27/23 04:01 01/27/23 04:00 01/27/23 04:00 35 01/27/23 04:00 01/27/23 03:45 01/27/23 03:30 01/27/23 03:15 01/27/23 03:01 01/27/23 03:01 01/27/23 03:00 01/27/23 02:45 01/27/23 02:30 01/27/23 02:15 01/27/23 02:01 01/27/23 02:01 01/27/23 02:00 01/27/23 01:32 01/27/23 01:30 01/27/23 01:00 01/27/23 01:00 01/27/23 00:30 01/27/23 00:19 8.0 01/27/23 00:01 01/27/23 00:01 01/27/23 00:00 01/27/23 00:00 01/27/23 00:00 01/26/23 23:45 01/26/23 23:30 01/26/23 23:15 01/26/23 23:00 01/26/23 23:00 01/26/23 22:48 35 01/26/23 22:45 01/26/23 22:30 01/26/23 22:15 01/26/23 22:00 01/26/23 22:00 01/26/23 21:45 01/26/23 21:30 01/26/23 21:15 01/26/23 21:01 01/26/23 21:01 01/26/23 21:00 01/26/23 21:00 35 01/26/23 20:45 01/26/23 20:30 Laboratory Results 01/27/23 04:34 01/27/23 04:34 PG Care Time/CCT Total # of Minutes Spent Total Time Spent with Patient: Total time spent is greater than 50% in coordination of care (as documented) at patient's floor/unit and/or counseling patient: Coding Level of Care Code 71777 CRITICAL CARE 1ST 30-74M Diagnoses Acute CVA (cerebrovascular accident) I63.9 Sleep apnea G47.30 T2DM (type 2 diabetes mellitus) E11.9 Stroke-like symptoms R29.90 Encounter for pre-operative examination Z01.818 Atrial fibrillation I48.91 Seizure-like activity R56.9 Required emergent intubation Z98.890 Symptomatic bradycardia R00.1 Encephalopathy G93.40
[2023-01-27] MEDS ORDERED: POTASSIUM PHOSPHATE 30 MMOL in SODIUM CHLORIDE 0.9% 500 ML IV ONE (08:30)
--- NOTE | 2023-01-27 08:47 | Cardiology Progress Note ---
Date of Service January 27, 2023 Assessment & Plan (1) Acute CVA (cerebrovascular accident): (2) Paroxysmal atrial fibrillation: (3) Tachycardia-bradycardia syndrome: (4) Symptomatic bradycardia: Plan IMPRESSION: Complex 67-year-old female presenting with cerebrovascular accident and Eliquis failure. Developed seizure-like activity early a.m. 01/25 requiring intubation with significant bradycardia on telemetry. Beta-omar and amiodarone placed on hold 01/25/2023. But amiodarone restarted 01/26 due to concerns for recurrent PAF. Heart rate improved, Dopamine infusion remains-- BP improved. PLAN: PAF: Continue amiodarone 200 mg twice daily. Continue to hold metoprolol at this time. Continue IV heparin. Ultimately, plan transition to warfarin. Potential need for possible pacemaker insertion during hospitalization. Dobutamine infusion per critical care service, wean as tolerated. Febrile illness: Cause unknown-- possibly due to CVA vs early sepsis. Continue empiric antibiotics. Initial blood culture result likely contaminant. Await culture results. Case discussed with Dr. Lay I spent a total of 40 minutes on the date of service in preparation, delivery, and documentation of the care provided to this patient, excluding any time spent in the performance of separately billed services. Admission and Anticipated Discharge Date Admission Date: January 23, 2023 Supervising Physician Co-Signing Physician Notes Patient seen and examined at the bedside. No changes overnight. Fevers resolved until early this morning once again she spiked a temperature of 38.1 C. Cultures negative thus far. Remains in sinus rhythm on telemetry. Amiodarone restarted yesterday. Heart rate and blood pressure stable, however, remains on dopamine infusion. Daughter present at bedside. PE: Gen: NAD. Opens eyes on ventilator, pupils are equal and reactive. Heart: Regular rhythm. Normal S1-S2. Lungs: Coarse breath sounds bilateral, scattered rhonchi. No wheeze. Extremities: No edema. A/P: Agree with above HSE ADVISOR history, physical exam, assessment and plan. Continue amiodarone and IV heparin. Metoprolol remain on hold. Wean dopamine as hemodynamics allow. Potential need for pacemaker insertion during hospitalization. Monitor telemetry. Await culture results. Empiric antibiotics as per critical care service. Subjective Medically complex 67-year-old female who presented to [facility] emergency department 01/23/2023 due to a new Left MCA territory infarct. Eliquis was held and Plavix was initiated. 01/24/2023: Eliquis was discontinued in favor of IV heparin with considerations to transition to Coumadin Amiodarone and metoprolol was transiently held due to bradycardia on telemetry. Amiodarone and metoprolol restarted. Coumadin discontinued per neurology 01/26/2024: Patient developed seizure-like activity overnight difficult bradycardia on telemetry. Amiodarone and metoprolol Placed on hold. Patient was intubated and placed on a norepinephrine and dopamine infusion. 01/26/2023: Heart rates improved. Amiodarone 200 mg twice daily restarted. Metoprolol remain on hold. IV heparin continued. Having fevers overnight, started on antibiotics. Blood cultures pending. 01/27/2023: Patient seen and examined. Sedation withdrawn. Opening her eyes with verbal stimuli. Not following commands. Heart rate improved on telemetry, currently SR in the 60s with PACs. No recurrent bradycardia. No pauses recorded. Norepinephrine previously discontinued (01/25). Low-dose dopamine infusing. No fevers over night. Cultures previously drawn-- pending. Empiric antibiotic therapy with Unasyn and vancomycin. Daughter and sister present at bedside. Review of Systems Review of Systems: Unobtainable due to cognitive status and Unobtainable due to endotracheal tube Physical Exam Constitutional: + ill appearing; no acute distress Respiratory: no respiratory distress and no labored breathing Auscultation: + rales and + rhonchi; no wheezes Cardiovascular: Rate/Rhythm: regular rate and regular rhythm Heart Sounds: normal S1, normal S2 and + murmur (1/6 systolic ejection murmur heard at the base) Vessels: no JVD Extremities: no edema Gastrointestinal (Abdomen): Inspection/Auscultation: abdomen normal to inspection and normal bowel sounds; abdomen not distended Percussion/Palpation: abdomen nontender, no guarding and abdomen not rigid Neurologic: Opens eyes spontaneously. Does not follow commands. Results & Data Vital Signs (Past 12 Hours) Vital Signs Temp Pulse Resp BP Pulse Ox Pulse Ox O2 Del Method 01/27/23 07:15 57 L 20 93 01/27/23 05:01 36.9 C 66 20 92 01/27/23 05:01 114/64 01/27/23 05:00 36.9 C 65 20 95 01/27/23 04:45 78 12 01/27/23 04:30 63 20 98 01/27/23 04:29 59 L 20 99 01/27/23 04:15 61 20 98 01/27/23 04:01 59 L 20 100 01/27/23 04:01 125/59 L 01/27/23 04:00 63 22 97 01/27/23 04:00 01/27/23 04:00 159/58 H 01/27/23 03:45 59 L 20 99 01/27/23 03:30 59 L 17 99 01/27/23 03:15 59 L 17 100 01/27/23 03:01 59 L 20 100 01/27/23 03:01 136/62 01/27/23 03:00 58 L 18 100 01/27/23 02:45 65 20 97 01/27/23 02:30 63 18 95 01/27/23 02:15 63 18 94 01/27/23 02:01 37.1 C 156/69 H 01/27/23 02:01 63 20 96 01/27/23 02:00 62 17 97 01/27/23 01:32 75 01/27/23 01:30 70 17 96 01/27/23 01:00 172/88 H 01/27/23 01:00 73 17 96 01/27/23 00:30 68 17 96 01/27/23 00:19 01/27/23 00:01 67 20 97 01/27/23 00:01 147/65 H 01/27/23 00:00 67 18 97 01/27/23 00:00 95 Mechanical Vent 01/27/23 00:00 187/70 H 01/26/23 23:45 68 18 97 01/26/23 23:30 71 18 98 01/26/23 23:15 72 18 99 01/26/23 23:00 162/66 H 01/26/23 23:00 72 17 100 01/26/23 22:48 70 20 96 01/26/23 22:45 38.0 C H 83 13 84 L 01/26/23 22:30 73 17 93 01/26/23 22:15 70 18 97 01/26/23 22:00 136/61 01/26/23 22:00 66 18 97 01/26/23 21:45 67 18 97 01/26/23 21:30 66 18 99 01/26/23 21:15 67 18 97 01/26/23 21:01 68 23 98 01/26/23 21:01 113/63 01/26/23 21:00 69 18 98 01/26/23 21:00 FiO2 01/27/23 07:15 30 01/27/23 05:01 01/27/23 05:01 01/27/23 05:00 01/27/23 04:45 01/27/23 04:30 01/27/23 04:29 30 01/27/23 04:15 01/27/23 04:01 01/27/23 04:01 01/27/23 04:00 01/27/23 04:00 35 01/27/23 04:00 01/27/23 03:45 01/27/23 03:30 01/27/23 03:15 01/27/23 03:01 01/27/23 03:01 01/27/23 03:00 01/27/23 02:45 01/27/23 02:30 01/27/23 02:15 01/27/23 02:01 01/27/23 02:01 01/27/23 02:00 01/27/23 01:32 01/27/23 01:30 01/27/23 01:00 01/27/23 01:00 01/27/23 00:30 01/27/23 00:19 8.0 01/27/23 00:01 01/27/23 00:01 01/27/23 00:00 01/27/23 00:00 01/27/23 00:00 01/26/23 23:45 01/26/23 23:30 01/26/23 23:15 01/26/23 23:00 01/26/23 23:00 01/26/23 22:48 35 01/26/23 22:45 01/26/23 22:30 01/26/23 22:15 01/26/23 22:00 01/26/23 22:00 01/26/23 21:45 01/26/23 21:30 01/26/23 21:15 01/26/23 21:01 01/26/23 21:01 01/26/23 21:00 01/26/23 21:00 35 Laboratory Results Coagulation 01/27/23 Range/Units 04:34 PT 12.0 (9.0-12.0) Seconds APTT 54.3 H* (21.0-31.0) Seconds CBC 01/27/23 Range/Units 04:34 WBC 8.68 (4.8-10.8) K/ul RBC 3.62 L (4.20-5.40) M/uL Hgb 11.5 L (12.0-16.0) g/dl Hct 34.1 L (37.0-47.0) % Plt Count 199 (130-400) K/uL Neut # (Auto) 6.73 H (1.40-6.50) K/uL Lymph # (Auto) 1.02 L (1.20-3.40) K/uL Walker # (Auto) 0.78 H (0.11-0.59) K/uL Eos # (Auto) 0.09 (0.00-0.50) K/uL Baso # (Auto) 0.01 (0.00-0.20) K/uL Comprehensive Metabolic Panel 01/26/23 01/26/23 01/26/23 Range/Units 12:44 16:48 20:16 Sodium 135 L 135 L 135 L (136-145) mmol/L Potassium 3.9 4.1 3.9 (3.5-5.1) mmol/L Chloride 103 103 103 (98-107) mmol/L Carbon Dioxide 25 25 24 (21-32) mmol/L BUN 9 9 10 (6-23) mg/dl Creatinine 0.73 0.71 0.73 (0.6-1.2) mg/dl Glucose 160 H 134 H 161 H (70-99(Fasting)) mg/dl Calcium 8.5 L 8.6 8.5 L (8.6-10.3) mg/dl 01/26/23 01/26/23 01/27/23 Range/Units 20:53 23:50 04:34 Sodium 139 137 139 (136-145) mmol/L Potassium 4.1 3.7 3.6 (3.5-5.1) mmol/L Chloride 108 H 107 110 H (98-107) mmol/L Carbon Dioxide 24 23 23 (21-32) mmol/L BUN 10 10 9 (6-23) mg/dl Creatinine 0.71 0.66 0.58 L (0.6-1.2) mg/dl Glucose 160 H 166 H 155 H (70-99(Fasting)) mg/dl Calcium 8.2 L 8.2 L 8.1 L (8.6-10.3) mg/dl Intake and Output 01/26/23 01/27/23 01/27/23 22:59 06:59 14:59 Intake Total 1340.809 / 4191.899 1729.666 / 4191.899 96.454 / 96.454 Output Total 150 / 1215 490 / 1215 Balance 1190.809 / 2976.899 1239.666 / 2976.899 96.454 / 96.454 Intake: IV 1330.809 / 3956.899 1504.666 / 3956.899 96.454 / 96.454 Ampicillin/Sulbactam Sod 3,000 200 / 400 100 / 400 mg In Sodium Chlor 0.9% Mini-B 100 ml @ 100 mls/hr IV Q6H [facility] Rx#:[id number] DOPamine / D5W 400 mg In 250 ml 196.283 / 672.928 225.882 / 672.928 45.407 / 45.407 @ 5 MCG/KG/MIN 19.575 mls/hr IV .[id number] [facility] Rx#:[id number] Heparin Sodium/Dextrose 25,000 273.667 / 509.667 236.000 / 509.667 units In 500 ml @ 1,000 UNITS/ HR 20 mls/hr IV .Q24H [facility] Rx#: [id number] Sodium Chloride 3 % 500 ml @ 22 426.25 / 950.117 523.867 / 950.117 mls/hr IV .[id number] [facility] Rx#: [id number] Vancomycin HCl 1,000 mg In 270 / 270 Sodium Chloride 0.9% 250 ml @ 200 mls/hr IV Q12H [facility] Rx#: [id number] fentaNYL citrate 2,500 mcg In 48.625 / 188.750 88.5 / 188.750 20.25 / 20.25 250 ml @ 75 MCG/HR 7.5 mls/hr IV .[id number] [facility] Rx#:[id number] levETIRAcetam 1,000 mg In 0.9 % 110 / 220 Sodium Chloride 100 ml @ 440 mls/hr IV BID [facility] Rx#:[id number] propofoL 1,000 mg In 100 ml @ 75.984 / 186.270 60.417 / 186.270 30.797 / 30.797 20 MCG/KG/MIN 12.528 mls/hr IV .[id number] [facility] Rx#:[id number] Oral 0 / 0 Tube Feeding 225 / 235 Output: Urine Amount (Catheter) 150 / 1215 490 / 1215 La/Indwelling 150 / 1215 490 / 1215 Other: Weight 101.8 kg Weight Measurement Method Built in [facility]
[2023-01-27] MEDS ORDERED: FUROSEMIDE INJ 20 MG/2 ML VIAL IV ONE (09:27)
[2023-01-27] MEDS: levETIRAcetam 1,000 MG in 0.9 % SODIUM CHLORIDE 100 ML IV SCH (09:31)
[2023-01-27] MEDS: INSULIN ASPART PER UNIT CHARGE SC SCH ×4 (09:32→21:00)
[2023-01-27] MEDS: buPROPion XL 300 MG TABCR PO SCH (09:33)
[2023-01-27] MEDS: ATORVASTATIN 40 MG TAB PO SCH (09:33)
[2023-01-27] MEDS: AMIODARONE 200 MG TAB PO SCH ×2 (09:33→16:22)
[2023-01-27] MEDS: MULTI VIT W/MINERALS LIQUID 15 ML UDP PO SCH (09:34)
[2023-01-27] MEDS: MONTELUKAST SODIUM 10 MG TABLET PO SCH (09:34)
[2023-01-27] MEDS: FLUTICASONE FUROATE 200MCG 14 PUFFS/INHALER INH SCH (09:34)
[2023-01-27] MEDS: GABAPENTIN 100 MG CAP PO SCH ×2 (09:34→20:20)
[2023-01-27] MEDS: ACETAMINOPHEN 325 MG TAB PO PRN (09:40)
--- NOTE | 2023-01-27 10:22 | Hospitalist Progress Note ---
Date of Service January 27, 2023 Assessment & Plan (1) Acute CVA (cerebrovascular accident): Plan: 67 yo F with type 2 diabetes, hyperlipidemia, asthma- COPD overlap syndrome, obstructive sleep apnea, persistent atrial fibrillation, nonischemic cardiomyopathy, history of CVA, mitral regurgitation, atherosclerosis of coronary artery, morbid obesity, migraine without aura, depression with anxiety presents with strokelike symptoms. Acute CVA Dysarthria Initial workup with CT scan of head and CTA head and neck unremarkable MRI brain - IMPRESSION: 1. Scattered areas of small infarcts involving the insular region, left posterior centrum semiovale and left frontal and parietal cortex. 2. No intracranial hemorrhage. 3. Underlying microangiopathic white matter disease. Echo obtained Speech evaluation Neurology consulted - ok to stop plavix and do heparin bridge to coumadin Cardiology consulted - pt w/ pAfib, hx of CVAs on eliquis - plan to transition to coumadin w/ heparin bridge Stop Eliquis 01/25 Overnight pt had seizure-like episode, was intubated, started on pressors, currently pt is in ICU. Brain MRI repeated today FINDINGS: Increase in size in the acute to subacute left MCA territory infarct, primarily involving the left frontotemporal region. This infarct measures up to 4 cm in size. A orogastric tube is partially visualized. Fluid levels within the sphenoid sinuses and nasopharynx are noted. The mastoid air cells are clear. The major vascular flow-voids at the skull base are well-maintained. There is no mass, hematoma, midline shift. Mild atrophic changes again noted within the brain. There is an old right MCA territory infarct again noted. Vasogenic edema within the left MCA territory infarct has also progressed. IMPRESSION: Interval progression of the now moderate sized acute to subacute left MCA territory infarct as described above. No midline shift or intracranial hemorrhage identified at this time. Discussed w/ Dr. Patricia Campbell per ICU team - pt remains in critical condition EEG ordered and pending 01/26 Pt remains intubated, she is awake, somewhat restless, opens eyes, moves extremities besides RUE 01/27 Pt remains intubated in critical condition. EEG obtained - No electrographic seizures or epileptiform discharges are seen. Bradycardia History of atrial fibrillation - cont. amiodarone and metoprolol succinate - discussed w/ cardiology echo obtained and reviewed Monitor on telemetry Pt now in ICU on pressor support. Cardiology continues to follow closely - pt may need a pacemaker. amiodarone resumed, cont. dopamine History of CVA Continue statin Hold Eliquis transition to coumadin, as above poss. Aspiration posit. blood cultx increased secretions noted, fever - cont. Unasyn and vancomycin for now - follow cultures Diabetes On Mounjaro Hold metformin Insulin sliding scale Follow blood sugars Current HbA1c level 6.1% History of asthma/COPD Continue home inhalers Hypertension - cont. metoprolol succinate Continue losartan Permissive hypertension Now in ICU on pressor support Closely cont. to monitor Obstructive sleep apnea CPAP nightly now intubated Depression with anxiety On Wellbutrin and amitriptyline Hyperlipidemia On statin obtained lipid profile, LDL 105 DVT prophylaxis SCDs , heparin, per ICU Disposition: ICU Full code Admission and Anticipated Discharge Date Admission Date: January 23, 2023 Subjective Pt seen in follow up of CVA Pt is intubated in ICU. Family present at the bedside. Pt is awake , sedation off. + increased secretions noted. Pt moves extremities except for R arm. Opens eyes. However yesterday she was moving LUE more. No signs of seizures. Febrile Review of Systems Review of Systems: Unobtainable due to cognitive status and Unobtainable due to endotracheal tube Physical Exam Physical Exam: General- elderly obese F, intubated Head- atraumatic Eyes- pupils round small equal Lungs- +rhonchi Heart- regular rhythm; bradycardic, no murmur Abdomen- normal bowel sounds, soft, obese Extremities- trace pretibial edema, no erythema seen. Neuro- limited exam, pt intubated, but awake and moving extremities except for R arm (moved LUE more yesterday), opens eyes, pupils are small round equal Skin- warm & dry Results & Data Results & Data Vital Signs (Past 12 Hours) Vital Signs Temp Pulse Resp BP Pulse Ox Pulse Ox O2 Del Method 01/27/23 07:15 57 L 20 93 01/27/23 05:01 36.9 C 66 20 92 01/27/23 05:01 114/64 01/27/23 05:00 36.9 C 65 20 95 01/27/23 04:45 78 12 01/27/23 04:30 63 20 98 01/27/23 04:29 59 L 20 99 01/27/23 04:15 61 20 98 01/27/23 04:01 59 L 20 100 01/27/23 04:01 125/59 L 01/27/23 04:00 63 22 97 01/27/23 04:00 01/27/23 04:00 159/58 H 01/27/23 03:45 59 L 20 99 01/27/23 03:30 59 L 17 99 01/27/23 03:15 59 L 17 100 01/27/23 03:01 59 L 20 100 01/27/23 03:01 136/62 01/27/23 03:00 58 L 18 100 01/27/23 02:45 65 20 97 01/27/23 02:30 63 18 95 01/27/23 02:15 63 18 94 01/27/23 02:01 37.1 C 156/69 H 01/27/23 02:01 63 20 96 01/27/23 02:00 62 17 97 01/27/23 01:32 75 01/27/23 01:30 70 17 96 01/27/23 01:00 172/88 H 01/27/23 01:00 73 17 96 01/27/23 00:30 68 17 96 01/27/23 00:19 01/27/23 00:01 67 20 97 01/27/23 00:01 147/65 H 01/27/23 00:00 67 18 97 01/27/23 00:00 95 Mechanical Vent 01/27/23 00:00 187/70 H 01/26/23 23:45 68 18 97 01/26/23 23:30 71 18 98 01/26/23 23:15 72 18 99 01/26/23 23:00 162/66 H 01/26/23 23:00 72 17 100 01/26/23 22:48 70 20 96 01/26/23 22:45 38.0 C H 83 13 84 L 01/26/23 22:30 73 17 93 FiO2 01/27/23 07:15 30 01/27/23 05:01 01/27/23 05:01 01/27/23 05:00 01/27/23 04:45 01/27/23 04:30 01/27/23 04:29 30 01/27/23 04:15 01/27/23 04:01 01/27/23 04:01 01/27/23 04:00 01/27/23 04:00 35 11/27/23 04:00 01/27/23 03:45 01/27/23 03:30 01/27/23 03:15 01/27/23 03:01 01/27/23 03:01 01/27/23 03:00 01/27/23 02:45 01/27/23 02:30 01/27/23 02:15 01/27/23 02:01 01/27/23 02:01 01/27/23 02:00 01/27/23 01:32 01/27/23 01:30 01/27/23 01:00 01/27/23 01:00 01/27/23 00:30 01/27/23 00:19 8.0 01/27/23 00:01 01/27/23 00:01 01/27/23 00:00 01/27/23 00:00 01/27/23 00:00 01/26/23 23:45 01/26/23 23:30 01/26/23 23:15 01/26/23 23:00 01/26/23 23:00 01/26/23 22:48 35 01/26/23 22:45 01/26/23 22:30 Laboratory Results 01/27/23 01/27/23 01/26/23 Range/Units 09:27 04:34 23:50 WBC 8.68 (4.8-10.8) K/ul RBC 3.62 L (4.20-5.40) M/uL Hgb 11.5 L (12.0-16.0) g/dl POC Hgb (12.0-16.0) g/dl Hct 34.1 L (37.0-47.0) % POC Hct (37-47) % MCV 94.2 (80.0-100.0) fL MCH 31.8 (25.0-34.0) pg MCHC 33.7 (32.0-36.0) g/dL RDW Std Deviation 46.3 (36.4-46.3) fL RDW Coeff of Yeyo 13.4 (11.5-14.5) % Plt Count 199 (130-400) K/uL MPV 9.9 (9.4-12.4) fL Immature Gran % (Auto) 0.6 % Neut % (Auto) 77.5 % Lymph % (Auto) 11.8 % [place] % (Auto) 9.0 % Eos % (Auto) 1.0 % Baso % (Auto) 0.1 % Neut # (Auto) 6.73 H (1.40-6.50) K/uL Lymph # (Auto) 1.02 L (1.20-3.40) K/uL [place] # (Auto) 0.78 H (0.11-0.59) K/uL Eos # (Auto) 0.09 (0.00-0.50) K/uL Baso # (Auto) 0.01 (0.00-0.20) K/uL Immature Gran # (Auto) 0.05 (0.01-0.20) K/uL PT 12.0 (9.0-12.0) Seconds INR 1.1 (0.9-1.1) APTT 54.3 H* (21.0-31.0) Seconds PTT Ratio 1.9 Sample Site POC pH (7.35-7.45) POC pCO2 (35-46) mmHg POC pO2 (80-95) mmHg POC HCO3 (19-24) temi/L POC Total CO2 (24-31) mmol/L POC Base Excess (-9-1.8) temi/L ABG pH (Temp Correct) (7.35-7.45) ABG pCO2 (Temp Corrct (35-46) mmHg POC ABG pO2 at Pt Temp POC ABG O2 Sat (90-95) % Patrice Test O2 Delivery Device POC O2 Rate POC FiO2 % Tidal Volume PEEP POC Sodium (135-144) mmol/L Sodium 139 137 (136-145) mmol/L POC Potassium (3.3-5.0) mmol/L Potassium 3.6 3.7 (3.5-5.1) mmol/L Chloride 110 H 107 (98-107) mmol/L Carbon Dioxide 23 23 (21-32) mmol/L Anion Gap 6 7 (3-11) BUN 9 10 (6-23) mg/dl Creatinine 0.58 L 0.66 (0.6-1.2) mg/dl Est Cr Clr Drug Dosing 111.8 97.6 ml/min Est GFR ( Amer) 109.8 105.2 ml/min Est GFR (Non-Af Amer) 94.7 90.8 ml/min BUN/Creatinine Ratio 15.5 15.2 (10-20) Glucose 155 H 166 H (70-99(Fasting)) mg/dl POC Glucose (other) 154 H (70-99) mg/dl Calcium 8.1 L 8.2 L (8.6-10.3) mg/dl Phosphorus 2.1 L D (2.5-4.9) mg/dl Magnesium 1.9 (1.7-2.4) mg/dl Procalcitonin 0.20 (0-0.5) ng/ml 01/26/23 01/26/23 01/26/23 Range/Units 21:12 20:53 20:16 WBC (4.8-10.8) K/ul RBC (4.20-5.40) M/uL Hgb (12.0-16.0) g/dl POC Hgb 12.2 (12.0-16.0) g/dl Hct (37.0-47.0) % POC Hct 36 L (37-47) % MCV (80.0-100.0) fL MCH (25.0-34.0) pg MCHC (32.0-36.0) g/dL RDW Std Deviation (36.4-46.3) fL RDW Coeff of Yeyo (11.5-14.5) % Plt Count (130-400) K/uL MPV (9.4-12.4) fL Immature Gran % (Auto) % Neut % (Auto) % Lymph % (Auto) % [place] % (Auto) % Eos % (Auto) % Baso % (Auto) % Neut # (Auto) (1.40-6.50) K/uL Lymph # (Auto) (1.20-3.40) K/uL [place] # (Auto) (0.11-0.59) K/uL Eos # (Auto) (0.00-0.50) K/uL Baso # (Auto) (0.00-0.20) K/uL Immature Gran # (Auto) (0.01-0.20) K/uL PT (9.0-12.0) Seconds INR (0.9-1.1) APTT (21.0-31.0) Seconds PTT Ratio Sample Site Art Line POC pH 7.32 L (7.35-7.45) POC pCO2 43 (35-46) mmHg POC pO2 76 L (80-95) mmHg POC HCO3 22 (19-24) temi/L POC Total CO2 23 L (24-31) mmol/L POC Base Excess -4.0 (-9-1.8) temi/L ABG pH (Temp Correct) 7.318 L (7.35-7.45) ABG pCO2 (Temp Corrct 43 (35-46) mmHg POC ABG pO2 at Pt Temp 76 POC ABG O2 Sat 94.0 (90-95) % Patrice Test NA O2 Delivery Device Ventilator POC O2 Rate 20 POC FiO2 35 % Tidal Volume 400 PEEP 5 POC Sodium 139 (135-144) mmol/L Sodium 139 135 L (136-145) mmol/L POC Potassium 4.1 (3.3-5.0) mmol/L Potassium 4.1 3.9 (3.5-5.1) mmol/L Chloride 108 H 103 (98-107) mmol/L Carbon Dioxide 24 24 (21-32) mmol/L Anion Gap 7 8 (3-11) BUN 10 10 (6-23) mg/dl Creatinine 0.71 0.73 (0.6-1.2) mg/dl Est Cr Clr Drug Dosing 90.8 88.3 ml/min Est GFR ( Amer) 101.4 98.1 ml/min Est GFR (Non-Af Amer) 87.5 84.6 ml/min BUN/Creatinine Ratio 14.1 13.7 (10-20) Glucose 160 H 161 H (70-99(Fasting)) mg/dl POC Glucose (other) (70-99) mg/dl Calcium 8.2 L 8.5 L (8.6-10.3) mg/dl Phosphorus (2.5-4.9) mg/dl Magnesium (1.7-2.4) mg/dl Procalcitonin (0-0.5) ng/ml 01/26/23 01/26/23 01/26/23 Range/Units 16:48 12:51 12:44 WBC (4.8-10.8) K/ul RBC (4.20-5.40) M/uL Hgb (12.0-16.0) g/dl POC Hgb (12.0-16.0) g/dl Hct (37.0-47.0) % POC Hct (37-47) % MCV (80.0-100.0) fL MCH (25.0-34.0) pg MCHC (32.0-36.0) g/dL RDW Std Deviation (36.4-46.3) fL RDW Coeff of Yeyo (11.5-14.5) % Plt Count (130-400) K/uL MPV (9.4-12.4) fL Immature Gran % (Auto) % Neut % (Auto) % Lymph % (Auto) % [place] % (Auto) % Eos % (Auto) % Baso % (Auto) % Neut # (Auto) (1.40-6.50) K/uL Lymph # (Auto) (1.20-3.40) K/uL [place] # (Auto) (0.11-0.59) K/uL Eos # (Auto) (0.00-0.50) K/uL Baso # (Auto) (0.00-0.20) K/uL Immature Gran # (Auto) (0.01-0.20) K/uL PT (9.0-12.0) Seconds INR (0.9-1.1) APTT (21.0-31.0) Seconds PTT Ratio Sample Site POC pH (7.35-7.45) POC pCO2 (35-46) mmHg POC pO2 (80-95) mmHg POC HCO3 (19-24) temi/L POC Total CO2 (24-31) mmol/L POC Base Excess (-9-1.8) temi/L ABG pH (Temp Correct) (7.35-7.45) ABG pCO2 (Temp Corrct (35-46) mmHg POC ABG pO2 at Pt Temp POC ABG O2 Sat (90-95) % Patrice Test O2 Delivery Device POC O2 Rate POC FiO2 % Tidal Volume PEEP POC Sodium (135-144) mmol/L Sodium 135 L 135 L (136-145) mmol/L POC Potassium (3.3-5.0) mmol/L Potassium 4.1 3.9 (3.5-5.1) mmol/L Chloride 103 103 (98-107) mmol/L Carbon Dioxide 25 25 (21-32) mmol/L Anion Gap 7 7 (3-11) BUN 9 9 (6-23) mg/dl Creatinine 0.71 0.73 (0.6-1.2) mg/dl Est Cr Clr Drug Dosing 90.8 88.3 ml/min Est GFR ( Amer) 101.4 98.1 ml/min Est GFR (Non-Af Amer) 87.5 84.6 ml/min BUN/Creatinine Ratio 12.7 12.3 (10-20) Glucose 134 H 160 H (70-99(Fasting)) mg/dl POC Glucose (other) 158 H (70-99) mg/dl Calcium 8.6 8.5 L (8.6-10.3) mg/dl Phosphorus (2.5-4.9) mg/dl Magnesium (1.7-2.4) mg/dl Procalcitonin (0-0.5) ng/ml Medications Administered Current Inpatient Medications Acetaminophen (Acetaminophen 325 Mg Tab) 650 mg PO Q4H PRN PRN Reason: Fever/Mild Pain (Pain 1,2,3) Stop: 02/24/23 02:41 Last Admin: 01/26/23 17:10 Dose: 650 mg Amiodarone HCl (Amiodarone 200 Mg Tab) 200 mg PO BIDM [facility] Stop: 02/23/23 16:59 Last Admin: 01/27/23 09:33 Dose: 200 mg Atorvastatin Calcium (Atorvastatin 40 Mg Tab) 80 mg PO QAM [facility] Stop: 02/24/23 08:59 Last Admin: 01/27/23 09:33 Dose: 80 mg Bupropion HCl (Bupropion Xl 300 Mg Tabcr) 300 mg PO DAILY [facility] Stop: 02/23/23 08:59 Last Admin: 01/27/23 09:33 Dose: 300 mg Dextrose (Dextrose 50% 50 Ml Syringe) 25 - 50 ml IV UD PRN; Protocol PRN Reason: Hypoglycemia Protocol Stop: 02/23/23 00:12 Fentanyl Citrate (Fentanyl Bolus From Bag) 50 mcg IV Q60M PRN PRN Reason: Pain or Agitation Stop: 02/08/23 02:41 Last Admin: 01/26/23 04:07 Dose: 50 mcg Fluticasone Furoate (Fluticasone Furoate 200mcg 14 Puffs/Inhaler) 1 puffs INH DAILY LYLY Stop: 02/23/23 08:59 Last Admin: 01/27/23 09:34 Dose: Not Given Gabapentin (Gabapentin 100 Mg Cap) 100 mg PO BID [facility] Stop: 02/23/23 08:59 Last Admin: 01/27/23 09:34 Dose: 100 mg Glucagon (Glucagon For Inj 1 Mg Vial) 1 mg SQ UD PRN; Protocol PRN Reason: Hypoglycemia Protocol Stop: 02/23/23 00:12 Glucose (Glucose 10 Tab/Tube) 4 - 8 tab PO UD PRN; Protocol PRN Reason: Hypoglycemia Treatment Stop: 02/23/23 00:12 Glucose (Glucose 40% Gel 15 Gm Tube) 15 - 30 gm PO UD PRN; Protocol PRN Reason: Hypoglycemia Protocol Stop: 02/23/23 00:12 Dopamine HCl/Dextrose (Dopamine / D5w) 400 mg in 250 mls @ 27.405 mls/hr IV .Q9H8M LYLY; Protocol Stop: 02/24/23 01:29 Last Titration: 01/27/23 09:13 Dose: 7 mcg/kg/min, 27.4 mls/hr Norepinephrine Bitartrate (Levophed/D5w) 4 mg in 250 mls @ 0 mls/hr IV .Q0M LYLY; Protocol Stop: 02/24/23 01:59 Last Titration: 01/25/23 19:13 Dose: 0 mcg/kg/min, 0 mls/hr Propofol (Diprivan) 1,000 mg in 100 mls @ 0 mls/hr IV .Q0M LYLY; Protocol Stop: 01/28/23 02:29 Last Titration: 01/27/23 09:31 Dose: 0 mcg/kg/min, 0 mls/hr Heparin Sodium/Dextrose (Heparin Sodium/Dextrose) 25,000 units in 500 mls @ 20 mls/hr IV .Q24H LYLY; Protocol Stop: 02/24/23 02:44 Last Titration: 01/27/23 06:54 Dose: 1,000 units/hr, 20 mls/hr Fentanyl Citrate (Fentanyl Citrate) 2,500 mcg in 250 mls @ 0 mls/hr IV .Q0M LYLY; Protocol Stop: 02/08/23 02:44 Last Titration: 01/27/23 09:36 Dose: 0 mcg/hr, 0 mls/hr Levetiracetam 1,000 mg/ Sodium (Chloride) 110 mls @ 440 mls/hr IV BID [facility] Stop: 02/25/23 08:59 Last Infusion: 01/27/23 10:19 Dose: Infused Ampicillin Sodium/Sulbactam Sodium 3,000 mg/ Sodium Chloride 100 mls @ 100 mls/hr IV Q6H [facility] Stop: 02/02/23 08:59 Last Admin: 01/27/23 09:31 Dose: 100 mls/hr Sodium Chloride (Hypertonic Saline 3%) 500 mls @ 30 mls/hr IV .[id number] [facility]; Protocol Stop: 01/28/23 08:54 Last Infusion: 01/27/23 06:54 Dose: 30 mls/hr Magnesium Sulfate/Dextrose (Magnesium Sulfate / D5w) 1 gm in 100 mls @ 50 mls/hr IV Q2H [facility] Stop: 01/27/23 12:29 Last Admin: 01/27/23 10:19 Dose: 50 mls/hr Potassium Phosphate 30 mmol/ (Sodium Chloride) 510 mls @ 102 mls/hr IV ONE ONE Stop: 01/27/23 13:29 Last Admin: 01/27/23 08:27 Dose: 102 mls/hr Insulin Aspart (Insulin Aspart Per Unit Charge) 0 units SC ACHS [facility] Stop: 02/25/23 20:59 Last Admin: 01/27/23 09:32 Dose: Not Given Lorazepam (Lorazepam 0.5 Mg Tab) 0.5 mg PO Q6H PRN PRN Reason: Anxiety Stop: 02/25/23 10:50 Losartan Potassium (Losartan Potassium 50 Mg Tab) 50 mg PO DAILY [facility] Stop: 02/23/23 08:59 Last Admin: 01/24/23 07:37 Dose: 50 mg Metoprolol Succinate (Metoprolol Succ 50mg Ext Rel Tab) 100 mg PO BID [facility] Stop: 02/23/23 20:59 Last Admin: 01/24/23 20:00 Dose: 100 mg Miscellaneous (Carbohydrates For Hypoglycemia ) 15 - 30 gm PO UD PRN PRN Reason: Hypoglycemia Protocol Stop: 02/23/23 00:12 Miscellaneous (Icu Electrolyte Replacement Protocol) 1 each N/A BID@,18 [facility]; Protocol Stop: 02/03/23 17:59 Miscellaneous Information (Pharmacist Discharge Med Rec Consult) 1 each N/A UD PRN PRN Reason: Consult Stop: 02/23/23 00:12 Miscellaneous Information (Vancomycin Consult Active) 1 each N/A UD PRN PRN Reason: Consult Stop: 02/24/23 23:58 Montelukast Sodium (Montelukast Sodium 10 Mg Tablet) 10 mg PO DAILY [facility] Stop: 02/23/23 08:59 Last Admin: 01/27/23 09:34 Dose: 10 mg Multivitamins/Minerals (Multi Vit W/Minerals Liquid 15 Ml Udp) 15 ml PO QAM [facility] Stop: 02/26/23 08:59 Last Admin: 01/27/23 09:34 Dose: 15 ml Nitroglycerin (Nitroglycerin Sl 0.4 Mg/Tab Tab) 0.4 mg SL Q5M PRN PRN Reason: Chest Pain Stop: 02/23/23 00:12 Nortriptyline HCl (Nortriptyline Hcl 25 Mg Cap) 25 mg PO HS [facility] Stop: 02/23/23 20:59 Last Admin: 01/24/23 20:00 Dose: 25 mg Nutritional Formula (Peptamen Intense Vhp 1.0 August 1,000 Ml Bag) 1,000 ml OG .SeeProtocol [facility]; Protocol Stop: 02/25/23 11:14 Last Admin: 01/26/23 15:07 Dose: 1,000 ml Propofol (Propofol Bolus From Bag) 20 mg IV Q5M PRN PRN Reason: Sedation Stop: 01/28/23 02:16 Last Admin: 01/26/23 03:30 Dose: 20 mg Sterile Water (Tube Feeding Water Flush) 30 ml NG Q4 [facility] Stop: 02/25/23 11:59 Last Admin: 01/27/23 09:32 Dose: 30 ml Zinc Acetate/Diphenhydramine (Diphenhydramine 2%/Zinc 0.1% Cream 28.4gm Tube) 1 appln EXT BID PRN PRN Reason: Itching Stop: 02/23/23 05:55 Last Admin: 01/24/23 20:02 Dose: 1 appln
--- NOTE | 2023-01-27 11:11 | Electroencephalogram ---
EEG Procedure Note Date of Service January 27, 2023 Start / End Times Start Time: 07:40 End Time: 08:00 Referring Physician Liam Vides History A 67-year-old female admitted with New onset seizure secondary to an acute left MCA ischemic stroke. Patient is currently intubated. EEG performed for evaluation of epileptiform activity. Home Medication List Medication Instructions Recorded Confirmed Type amiodarone 200 mg tablet 200 mg PO BID 01/23/23 01/23/23 History apixaban 5 mg tablet (Eliquis) 5 mg PO BID 01/23/23 01/23/23 History atorvastatin 40 mg tablet 40 mg PO DAILY 01/23/23 01/23/23 History bupropion HCl 300 mg 24 hr tablet, 300 mg PO DAILY 01/23/23 01/23/23 History extended release fluticasone fur. 200 mcg-umeclid 1 inh inhalation DAILY 01/23/23 01/23/23 History 62.5 mcg-vilant 25 mcg inhalat.powder (Trelegy Ellipta) gabapentin 100 mg capsule 100 mg PO BID 01/23/23 01/23/23 History losartan 50 mg tablet 50 mg PO DAILY 01/23/23 01/23/23 History metformin 500 mg tablet 500 mg PO BID 01/23/23 01/23/23 History metoprolol succinate 100 mg 100 mg PO BID 01/23/23 01/23/23 History tablet,extended release 24 hr montelukast 10 mg tablet 10 mg PO DAILY 01/23/23 01/23/23 History nortriptyline 25 mg capsule 25 mg PO HS 01/23/23 01/23/23 History tirzepatide 2.5 mg/0.5 mL 5 mg subcut WK 01/23/23 01/23/23 History subcutaneous pen injector (Mounjosero) Inpatient Medication List Acetaminophen (Acetaminophen 325 Mg Tab) 650 mg PO Q4H PRN PRN Reason: Fever/Mild Pain (Pain 1,2,3) Stop: 02/24/23 02:41 Last Admin: 01/26/23 17:10 Dose: 650 mg Documented By: Admin: 01/26/23 07:58 Dose: 650 mg Documented By: Admin: 01/26/23 04:08 Dose: 650 mg Documented By: Admin: 01/25/23 19:20 Dose: 650 mg Documented By: ILIANA Amiodarone HCl (Amiodarone 200 Mg Tab) 200 mg PO BIDM [facility] Stop: 02/23/23 16:59 Last Admin: 01/27/23 09:33 Dose: 200 mg Documented By: Admin: 01/26/23 17:10 Dose: 200 mg Documented By: Admin: 01/25/23 10:39 Dose: Not Given Documented By: Admin: 01/24/23 17:38 Dose: 200 mg Documented By: HUSAM Atorvastatin Calcium (Atorvastatin 40 Mg Tab) 80 mg PO QAM [facility] Stop: 02/24/23 08:59 Last Admin: 01/27/23 09:33 Dose: 80 mg Documented By: Admin: 01/26/23 08:00 Dose: 80 mg Documented By: Admin: 01/25/23 08:53 Dose: 80 mg Documented By: ADOLFO Bupropion HCl (Bupropion Xl 300 Mg Tabcr) 300 mg PO DAILY LYLY Stop: 02/23/23 08:59 Last Admin: 01/27/23 09:33 Dose: 300 mg Documented By: Admin: 01/26/23 08:00 Dose: 300 mg Documented By: Admin: 01/25/23 08:50 Dose: 300 mg Documented By: Admin: 01/24/23 07:38 Dose: 300 mg Documented By: HUSAM Fentanyl Citrate (Fentanyl Bolus From Bag) 50 mcg IV Q60M PRN PRN Reason: Pain or Agitation Stop: 02/08/23 02:41 Last Admin: 01/26/23 04:07 Dose: 50 mcg Documented By: ILIANA Co-signed By: ISMAEL Admin: 01/26/23 00:58 Dose: 50 mcg Documented By: ILIANA Co-signed By: ISMAEL Fluticasone Furoate (Fluticasone Furoate 200mcg 14 Puffs/Inhaler) 1 puffs INH DAILY [facility] Stop: 02/23/23 08:59 Last Admin: 01/27/23 09:34 Dose: Not Given Documented By: Admin: 01/26/23 10:52 Dose: Not Given Documented By: Admin: 01/25/23 09:58 Dose: Not Given Documented By: Admin: 01/24/23 09:13 Dose: 1 puffs Documented By: HUSAM Gabapentin (Gabapentin 100 Mg Cap) 100 mg PO BID LYLY Stop: 02/23/23 08:59 Last Admin: 01/27/23 09:34 Dose: 100 mg Documented By: Admin: 01/26/23 20:11 Dose: 100 mg Documented By: Admin: 01/26/23 10:52 Dose: Not Given Documented By: Admin: 01/25/23 20:03 Dose: 100 mg Documented By: Admin: 01/25/23 08:50 Dose: Not Given Documented By: Admin: 01/24/23 20:00 Dose: 100 mg Documented By: Admin: 01/24/23 07:38 Dose: 100 mg Documented By: Dopamine HCl/Dextrose (Dopamine / D5w) 400 mg in 250 mls @ 27.405 mls/hr IV .Q9H8M [facility]; Protocol Stop: 02/24/23 01:29 Last Titration: 01/27/23 09:13 Dose: 7 mcg/kg/min, 27.4 mls/hr Documented By: Titration: 01/27/23 06:54 Dose: 5 mcg/kg/min, 19.6 mls/hr Documented By: AMB Co-signed By: TLM Admin: 01/27/23 06:36 Dose: 5 mcg/kg/min, 19.6 mls/hr Documented By: TP Co-signed By: AMW Titration: 01/27/23 06:36 Dose: Infused Documented By: TP Co-signed By: AMW Titration: 01/27/23 06:06 Dose: 5 mcg/kg/min, 19.6 mls/hr Documented By: Titration: 01/27/23 05:30 Dose: 7 mcg/kg/min, 27.4 mls/hr Documented By: Titration: 01/27/23 04:21 Dose: 5 mcg/kg/min, 19.6 mls/hr Documented By: Admin: 01/27/23 02:19 Dose: Not Given Documented By: Titration: 01/27/23 01:30 Dose: 3 mcg/kg/min, 11.7 mls/hr Documented By: Titration: 01/27/23 00:30 Dose: 5 mcg/kg/min, 19.6 mls/hr Documented By: Admin: 01/26/23 20:11 Dose: 7 mcg/kg/min, 27.4 mls/hr Documented By: TP Co-signed By: TLM Titration: 01/26/23 20:11 Dose: Infused Documented By: TP Co-signed By: TLM Admin: 01/26/23 19:18 Dose: Not Given Documented By: Admin: 01/26/23 19:18 Dose: 7 mcg/kg/min, 27.4 mls/hr Documented By: TP Co-signed By: AMB Titration: 01/26/23 19:18 Dose: Infused Documented By: TP Co-signed By: AMB Titration: 01/26/23 19:06 Dose: 7 mcg/kg/min, 27.4 mls/hr Documented By: TP Co-signed By: AMB Titration: 01/26/23 10:36 Dose: 5 mcg/kg/min, 19.6 mls/hr Documented By: Admin: 01/26/23 10:02 Dose: 7 mcg/kg/min, 27.4 mls/hr Documented By: AMB Co-signed By: CB Titration: 01/26/23 10:02 Dose: Infused Documented By: AMB Co-signed By: CB Titration: 01/26/23 07:51 Dose: 7 mcg/kg/min, 27.4 mls/hr Documented By: Titration: 01/26/23 07:04 Dose: 9 mcg/kg/min, 35.2 mls/hr Documented By: GG Co-signed By: AMB Admin: 01/26/23 05:32 Dose: Not Given Documented By: Titration: 01/26/23 02:52 Dose: Infused Documented By: GG Co-signed By: LLP Admin: 01/26/23 02:52 Dose: 9 mcg/kg/min, 35.2 mls/hr Documented By: GG Co-signed By: LLP Titration: 01/25/23 22:49 Dose: 9 mcg/kg/min, 35.2 mls/hr Documented By: Admin: 01/25/23 19:16 Dose: 7 mcg/kg/min, 27.4 mls/hr Documented By: AMB Co-signed By: GG Titration: 01/25/23 19:16 Dose: Infused Documented By: AMB Co-signed By: GG Titration: 01/25/23 19:13 Dose: 7 mcg/kg/min, 27.4 mls/hr Documented By: Admin: 01/25/23 11:08 Dose: 7 mcg/kg/min, 27.4 mls/hr Documented By: AMB Co-signed By: KGY Titration: 01/25/23 11:08 Dose: Infused Documented By: AMB Co-signed By: KGY Titration: 01/25/23 09:59 Dose: 7 mcg/kg/min, 27.4 mls/hr Documented By: Titration: 01/25/23 06:22 Dose: 5 mcg/kg/min, 19.6 mls/hr Documented By: Titration: 01/25/23 04:00 Dose: 7 mcg/kg/min, 27.4 mls/hr Documented By: Titration: 01/25/23 02:34 Dose: 5 mcg/kg/min, 19.6 mls/hr Documented By: Titration: 01/25/23 02:25 Dose: 8 mcg/kg/min, 31.3 mls/hr Documented By: Titration: 01/25/23 02:20 Dose: 10 mcg/kg/min, 39.2 mls/hr Documented By: Titration: 01/25/23 02:10 Dose: 12 mcg/kg/min, 47 mls/hr Documented By: Titration: 01/25/23 01:55 Dose: 10 mcg/kg/min, 39.2 mls/hr Documented By: Titration: 01/25/23 01:45 Dose: 8 mcg/kg/min, 31.3 mls/hr Documented By: Admin: 01/25/23 01:30 Dose: 5 mcg/kg/min, 19.6 mls/hr Documented By: LLP Co-signed By: TP Norepinephrine Bitartrate (Levophed/D5w) 4 mg in 250 mls @ 0 mls/hr IV .Q0M [facility]; Protocol Stop: 02/24/23 01:59 Last Titration: 01/25/23 19:13 Dose: 0 mcg/kg/min, 0 mls/hr Documented By: Titration: 01/25/23 10:33 Dose: 0 mcg/kg/min, 0 mls/hr Documented By: Titration: 01/25/23 04:46 Dose: 0.02 mcg/kg/min, 7.8 mls/hr Documented By: Titration: 01/25/23 02:33 Dose: 0.04 mcg/kg/min, 15.7 mls/hr Documented By: Titration: 01/25/23 02:25 Dose: 0.06 mcg/kg/min, 23.5 mls/hr Documented By: Titration: 01/25/23 02:15 Dose: 0.08 mcg/kg/min, 31.3 mls/hr Documented By: Titration: 01/25/23 02:00 Dose: 0.1 mcg/kg/min, 39.2 mls/hr Documented By: Titration: 01/25/23 01:50 Dose: 0.09 mcg/kg/min, 35.2 mls/hr Documented By: Titration: 01/25/23 01:45 Dose: 0.07 mcg/kg/min, 27.4 mls/hr Documented By: Admin: 01/25/23 01:30 Dose: 0.05 mcg/kg/min, 19.6 mls/hr Documented By: LLP Co-signed By: TP Propofol (Diprivan) 1,000 mg in 100 mls @ 0 mls/hr IV .Q0M [facility]; Protocol Stop: 01/28/23 02:29 Last Titration: 01/27/23 09:31 Dose: 0 mcg/kg/min, 0 mls/hr Documented By: Admin: 01/27/23 08:54 Dose: 15 mcg/kg/min, 9.4 mls/hr Documented By: AMB Co-signed By: CAM Titration: 01/27/23 08:54 Dose: Infused Documented By: AMB Co-signed By: CAM Titration: 01/27/23 06:54 Dose: 20 mcg/kg/min, 12.5 mls/hr Documented By: Admin: 01/27/23 06:37 Dose: 20 mcg/kg/min, 12.5 mls/hr Documented By: TP Co-signed By: AMW Titration: 01/27/23 06:37 Dose: Infused Documented By: TP Co-signed By: AMW Titration: 01/27/23 03:29 Dose: 20 mcg/kg/min, 12.5 mls/hr Documented By: Titration: 01/26/23 23:29 Dose: Infused Documented By: TLM Co-signed By: TP Admin: 01/26/23 23:29 Dose: Not Given Documented By: Admin: 01/26/23 23:29 Dose: 20 mcg/kg/min, 12.5 mls/hr Documented By: TLM Co-signed By: TP Admin: 01/26/23 22:04 Dose: 20 mcg/kg/min, 12.5 mls/hr Documented By: TLM Co-signed By: TP Titration: 01/26/23 22:04 Dose: Infused Documented By: TLM Co-signed By: TP Titration: 01/26/23 19:06 Dose: 15 mcg/kg/min, 9.4 mls/hr Documented By: TP Co-signed By: AMB Admin: 01/26/23 13:59 Dose: 15 mcg/kg/min, 9.4 mls/hr Documented By: AMB Co-signed By: JBH Titration: 01/26/23 13:59 Dose: Infused Documented By: AMB Co-signed By: JBH Titration: 01/26/23 10:55 Dose: 15 mcg/kg/min, 9.4 mls/hr Documented By: Titration: 01/26/23 07:51 Dose: 0 mcg/kg/min, 0 mls/hr Documented By: Titration: 01/26/23 07:04 Dose: 20 mcg/kg/min, 12.5 mls/hr Documented By: ILIANA Co-signed By: AMB Admin: 01/26/23 06:10 Dose: Not Given Documented By: Titration: 01/26/23 06:10 Dose: 20 mcg/kg/min, 12.5 mls/hr Documented By: Titration: 01/26/23 05:40 Dose: 25 mcg/kg/min, 15.7 mls/hr Documented By: Admin: 01/26/23 05:31 Dose: Not Given Documented By: Admin: 01/26/23 04:05 Dose: 35 mcg/kg/min, 21.9 mls/hr Documented By: ILIANA Co-signed By: LLP Titration: 01/26/23 04:05 Dose: Infused Documented By: ILIANA Co-signed By: LLP Admin: 01/25/23 22:47 Dose: 30 mcg/kg/min, 18.8 mls/hr Documented By: GG Co-signed By: LLP Titration: 01/25/23 22:47 Dose: Infused Documented By: GG Co-signed By: LLP Titration: 01/25/23 19:13 Dose: 30 mcg/kg/min, 18.8 mls/hr Documented By: Admin: 01/25/23 17:54 Dose: 30 mcg/kg/min, 18.8 mls/hr Documented By: AMB Co-signed By: CB Titration: 01/25/23 15:07 Dose: Infused Documented By: AMB Co-signed By: CB Admin: 01/25/23 08:44 Dose: 25 mcg/kg/min, 15.7 mls/hr Documented By: AMB Co-signed By: YOSSI Titration: 01/25/23 06:05 Dose: Infused Documented By: AMB Co-signed By: YOSSI Titration: 01/25/23 04:47 Dose: 30 mcg/kg/min, 18.8 mls/hr Documented By: Titration: 01/25/23 02:40 Dose: 35 mcg/kg/min, 21.9 mls/hr Documented By: Titration: 01/25/23 02:30 Dose: 30 mcg/kg/min, 18.8 mls/hr Documented By: Titration: 01/25/23 02:15 Dose: 20 mcg/kg/min, 12.5 mls/hr Documented By: Titration: 01/25/23 02:00 Dose: 0 mcg/kg/min, 0 mls/hr Documented By: Titration: 01/25/23 00:50 Dose: 30 mcg/kg/min, 18.8 mls/hr Documented By: Admin: 01/25/23 00:45 Dose: 20 mcg/kg/min, 12.5 mls/hr Documented By: LLP Co-signed By: KEE Heparin Sodium/Dextrose (Heparin Sodium/Dextrose) 25,000 units in 500 mls @ 20 mls/hr IV .Q24H [facility]; Protocol Stop: 02/24/23 02:44 Last Titration: 01/27/23 06:54 Dose: 1,000 units/hr, 20 mls/hr Documented By: AMB Co-signed By: TLGretchen Admin: 01/27/23 05:07 Dose: 1,000 units/hr, 20 mls/hr Documented By: TLM Co-signed By: TP Titration: 01/27/23 05:07 Dose: Infused Documented By: TLM Co-signed By: TP Titration: 01/26/23 19:06 Dose: 1,000 units/hr, 20 mls/hr Documented By: TP Co-signed By: AMB Titration: 01/26/23 05:25 Dose: 1,000 units/hr, 20 mls/hr Documented By: GG Co-signed By: LLP Admin: 01/26/23 05:10 Dose: 1,000 units/hr, 20 mls/hr Documented By: ILIANA Co-signed By: ARR(2) Titration: 01/26/23 05:10 Dose: Infused Documented By: GG Co-signed By: ARR(2) Titration: 01/25/23 21:45 Dose: 1,000 units/hr, 20 mls/hr Documented By: ILIANA Co-signed By: MNM Titration: 01/25/23 19:13 Dose: 1,000 units/hr, 20 mls/hr Documented By: AMB Co-signed By: GG Titration: 01/25/23 13:27 Dose: 1,000 units/hr, 20 mls/hr Documented By: AMB Co-signed By: YOSSI Admin: 01/25/23 04:27 Dose: 900 units/hr, 18 mls/hr Documented By: MNM Co-signed By: MARIYLN Fentanyl Citrate (Fentanyl Citrate) 2,500 mcg in 250 mls @ 0 mls/hr IV .Q0M [facility]; Protocol Stop: 02/08/23 02:44 Last Titration: 01/27/23 09:36 Dose: 0 mcg/hr, 0 mls/hr Documented By: AMB Co-signed By: CAM Titration: 01/27/23 06:54 Dose: 75 mcg/hr, 7.5 mls/hr Documented By: AMB Co-signed By: TLM Titration: 01/26/23 19:06 Dose: 75 mcg/hr, 7.5 mls/hr Documented By: TP Co-signed By: AMB Admin: 01/26/23 17:10 Dose: 75 mcg/hr, 7.5 mls/hr Documented By: AMB Co-signed By: CB Titration: 01/26/23 17:10 Dose: Infused Documented By: AMB Co-signed By: CB Titration: 01/26/23 12:37 Dose: 75 mcg/hr, 7.5 mls/hr Documented By: AMB Co-signed By: CB Titration: 01/26/23 07:51 Dose: 0 mcg/hr, 0 mls/hr Documented By: AMB Co-signed By: YOSSI Titration: 01/26/23 07:04 Dose: 75 mcg/hr, 7.5 mls/hr Documented By: GG Co-signed By: AMB Titration: 01/26/23 00:58 Dose: 75 mcg/hr, 7.5 mls/hr Documented By: GG Co-signed By: LLP Titration: 01/25/23 19:13 Dose: 50 mcg/hr, 5 mls/hr Documented By: AMB Co-signed By: ILIANA Titration: 01/25/23 06:21 Dose: 50 mcg/hr, 5 mls/hr Documented By: KEE Co-signed By: TP Titration: 01/25/23 04:00 Dose: 75 mcg/hr, 7.5 mls/hr Documented By: MNM Co-signed By: TP Admin: 01/25/23 02:53 Dose: 50 mcg/hr, 5 mls/hr Documented By: ISMAEL Co-signed By: KEE Ampicillin Sodium/Sulbactam Sodium 3,000 mg/ Sodium Chloride 100 mls @ 100 mls/hr IV Q6H [facility] Stop: 02/02/23 08:59 Last Admin: 01/27/23 09:31 Dose: 100 mls/hr Documented By: Infusion: 01/27/23 04:22 Dose: Infused Documented By: Admin: 01/27/23 03:41 Dose: 100 mls/hr Documented By: Infusion: 01/26/23 21:41 Dose: Infused Documented By: Admin: 01/26/23 20:41 Dose: 100 mls/hr Documented By: Infusion: 01/26/23 16:50 Dose: Infused Documented By: Admin: 01/26/23 15:07 Dose: 100 mls/hr Documented By: Infusion: 01/26/23 12:36 Dose: Infused Documented By: Admin: 01/26/23 10:25 Dose: 100 mls/hr Documented By: AMB Sodium Chloride (Hypertonic Saline 3%) 500 mls @ 30 mls/hr IV .[id number] [facility]; Protocol Stop: 01/28/23 08:54 Last Infusion: 01/27/23 06:54 Dose: 30 mls/hr Documented By: AMB Co-signed By: TLM Infusion: 01/27/23 06:07 Dose: 30 mls/hr Documented By: TLM Co-signed By: TP Infusion: 01/27/23 01:06 Dose: 22 mls/hr Documented By: TLM Co-signed By: TP Infusion: 01/26/23 19:06 Dose: 15 mls/hr Documented By: TP Co-signed By: AMB Admin: 01/26/23 10:41 Dose: 15 mls/hr Documented By: AMB Co-signed By: BRIANNA Magnesium Sulfate/Dextrose (Magnesium Sulfate / D5w) 1 gm in 100 mls @ 50 mls/hr IV Q2H [facility] Stop: 01/27/23 12:29 Last Admin: 01/27/23 10:19 Dose: 50 mls/hr Documented By: Infusion: 01/27/23 10:19 Dose: Infused Documented By: Admin: 01/27/23 08:24 Dose: 50 mls/hr Documented By: AMB Potassium Phosphate 30 mmol/ (Sodium Chloride) 510 mls @ 102 mls/hr IV ONE ONE Stop: 01/27/23 13:29 Last Admin: 01/27/23 08:27 Dose: 102 mls/hr Documented By: ADOLFO Insulin Aspart (Insulin Aspart Per Unit Charge) 0 units SC ACHS [facility] Stop: 02/25/23 20:59 Last Admin: 01/27/23 09:32 Dose: Not Given Documented By: AMB Co-signed By: CAM Admin: 01/26/23 20:42 Dose: Not Given Documented By: TP Co-signed By: MATT Losartan Potassium (Losartan Potassium 50 Mg Tab) 50 mg PO DAILY [facility] Stop: 02/23/23 08:59 Last Admin: 01/24/23 07:37 Dose: 50 mg Documented By: HM Metoprolol Succinate (Metoprolol Succ 50mg Ext Rel Tab) 100 mg PO BID [facility] Stop: 02/23/23 20:59 Last Admin: 01/24/23 20:00 Dose: 100 mg Documented By: ARR Montelukast Sodium (Montelukast Sodium 10 Mg Tablet) 10 mg PO DAILY [facility] Stop: 02/23/23 08:59 Last Admin: 01/27/23 09:34 Dose: 10 mg Documented By: Admin: 01/26/23 08:00 Dose: 10 mg Documented By: Admin: 01/25/23 08:50 Dose: 10 mg Documented By: Admin: 01/24/23 07:38 Dose: 10 mg Documented By: HM Multivitamins/Minerals (Multi Vit W/Minerals Liquid 15 Ml Udp) 15 ml PO QAM [facility] Stop: 02/26/23 08:59 Last Admin: 01/27/23 09:34 Dose: 15 ml Documented By: AMB Nortriptyline HCl (Nortriptyline Hcl 25 Mg Cap) 25 mg PO HS [facility] Stop: 02/23/23 20:59 Last Admin: 01/24/23 20:00 Dose: 25 mg Documented By: ARR Nutritional Formula (Peptamen Intense Vhp 1.0 August 1,000 Ml Bag) 1,000 ml OG .SeeProtocol [facility]; Protocol Stop: 02/25/23 11:14 Last Admin: 01/26/23 15:07 Dose: 1,000 ml Documented By: ADOLFO Propofol (Propofol Bolus From Bag) 20 mg IV Q5M PRN PRN Reason: Sedation Stop: 01/28/23 02:16 Last Admin: 01/26/23 03:30 Dose: 20 mg Documented By: ILIANA Co-signed By: IVY Admin: 01/26/23 01:17 Dose: 20 mg Documented By: ILIANA Co-signed By: ISMAEL Admin: 01/26/23 00:18 Dose: 20 mg Documented By: ILIANA Co-signed By: ISMAEL Admin: 01/25/23 02:00 Dose: 20 mg Documented By: ISMAEL Co-signed By: CF Sterile Water (Tube Feeding Water Flush) 30 ml NG Q4 [facility] Stop: 02/25/23 11:59 Last Admin: 01/27/23 09:32 Dose: 30 ml Documented By: Admin: 01/27/23 04:24 Dose: 30 ml Documented By: Admin: 01/27/23 00:51 Dose: 30 ml Documented By: Admin: 01/26/23 20:10 Dose: 30 ml Documented By: Admin: 01/26/23 16:49 Dose: 30 ml Documented By: Admin: 01/26/23 15:07 Dose: 30 ml Documented By: ADOLFO Zinc Acetate/Diphenhydramine (Diphenhydramine 2%/Zinc 0.1% Cream 28.4gm Tube) 1 appln EXT BID PRN PRN Reason: Itching Stop: 02/23/23 05:55 Last Admin: 01/24/23 20:02 Dose: 1 appln Documented By: Admin: 01/24/23 07:36 Dose: 1 appln Documented By: HUSAM Discontinued Medications Amiodarone HCl (Amiodarone 200 Mg Tab) 200 mg PO NOW ONE Stop: 01/26/23 09:16 Last Admin: 01/26/23 10:02 Dose: 200 mg Documented By: ADOLFO Atorvastatin Calcium (Atorvastatin 40 Mg Tab) 40 mg PO DAILY [facility] Stop: 02/23/23 08:59 Last Admin: 01/24/23 07:38 Dose: 40 mg Documented By: HUSAM Atropine Sulfate (Atropine Sulfate 0.1 Mg/Ml 10ml Syr) Confirm Administered Dose 1 mg IV .STK-MED ONE Stop: 01/25/23 01:25 Last Admin: 01/25/23 02:10 Dose: Not Given Documented By: ISMAEL Atropine Sulfate (Atropine Sulfate 0.1 Mg/Ml 10ml Syr) Confirm Administered Dose 1 mg IV .STK-MED ONE Stop: 01/25/23 01:26 Last Admin: 01/25/23 02:10 Dose: Not Given Documented By: ISMAEL Clopidogrel Bisulfate (Clopidogrel Bisulfate 75 Mg Tab) 75 mg PO NOW ONE Stop: 01/24/23 03:40 Last Admin: 01/24/23 07:52 Dose: Not Given Documented By: HUSAM Clopidogrel Bisulfate (Clopidogrel Bisulfate 75 Mg Tab) 75 mg PO DAILY [facility] Stop: 02/23/23 05:59 Last Admin: 01/24/23 07:35 Dose: 75 mg Documented By: HUSAM Diazepam (Diazepam 5 Mg/Ml 10ml Vial) 5 mg IV NOW STA Stop: 01/25/23 00:25 Last Admin: 01/25/23 04:04 Dose: Not Given Documented By: KEE Diazepam (Diazepam 5 Mg/Ml 10ml Vial) 5 mg IV NOW STA Stop: 01/25/23 00:26 Last Admin: 01/25/23 00:51 Dose: 5 mg Documented By: ARR Dopamine HCl/Dextrose (Dopamine 400mg / 250ml D5w) Confirm Administered Dose 400 mg IV .STK-MED ONE Stop: 01/25/23 01:18 Last Admin: 01/25/23 02:11 Dose: Not Given Documented By: LLP Furosemide (Furosemide Inj 20 Mg/2 Ml Vial) 20 mg IV ONE ONE Stop: 01/27/23 09:28 Last Admin: 01/27/23 09:35 Dose: 20 mg Documented By: ADOLFO Gadobutrol (Gadobutrol 65ml Vial) 10 ml IV ONCE ONE Stop: 01/24/23 02:03 Last Admin: 01/24/23 02:02 Dose: 10 ml Documented By: EUGENIA Heparin Sodium/Dextrose (Heparin Iv Adult Wt-Based Low-Dose *No* Bolus Protocol) 1 each IV ONE STA; Protocol Stop: 01/25/23 02:31 Last Admin: 01/25/23 04:28 Dose: Not Given Documented By: MNGretchen Heparin Sodium/Dextrose (Heparin 33050 Unit/500 Ml D5w) Confirm Administered Dose 25,000 units IV .STK-MED ONE Stop: 01/25/23 03:38 Last Admin: 01/25/23 04:28 Dose: Not Given Documented By: KEE Sodium Chloride (Nss) 1,000 mls @ 100 mls/hr IV .Q10H [facility] Stop: 01/24/23 20:12 Last Infusion: 01/24/23 20:46 Dose: Infused Documented By: Admin: 01/24/23 12:27 Dose: 100 mls/hr Documented By: Infusion: 01/24/23 12:12 Dose: Infused Documented By: Admin: 01/24/23 02:12 Dose: 100 mls/hr Documented By: ARR Heparin Sodium/Dextrose (Heparin Sodium/Dextrose) 25,000 units in 500 mls @ 28 mls/hr IV .[id number] [facility]; Protocol Stop: 02/23/23 10:29 Last Titration: 01/25/23 04:48 Dose: Infused Documented By: KEE Co-signed By: TP Titration: 01/24/23 19:13 Dose: 1,400 units/hr, 28 mls/hr Documented By: HUSAM Co-signed By: ARR Admin: 01/24/23 11:20 Dose: 1,400 units/hr, 28 mls/hr Documented By: HUSAM Co-signed By: NICKOLAS Magnesium Sulfate/Dextrose (Magnesium Sulfate / D5w) 1 gm in 100 mls @ 50 mls/hr IV Q2H LYLY Stop: 01/25/23 08:44 Last Infusion: 01/25/23 10:10 Dose: Infused Documented By: Admin: 01/25/23 07:37 Dose: 50 mls/hr Documented By: Infusion: 01/25/23 06:48 Dose: Infused Documented By: Admin: 01/25/23 04:48 Dose: 50 mls/hr Documented By: MNGretchen Infusion: 01/25/23 04:48 Dose: Infused Documented By: Admin: 01/25/23 03:52 Dose: 50 mls/hr Documented By: KEE Levetiracetam 2,000 mg/ Sodium (Chloride) 270 mls @ 999 mls/hr IV NOW STA Stop: 01/25/23 17:50 Last Infusion: 01/25/23 18:37 Dose: Infused Documented By: Admin: 01/25/23 17:56 Dose: 999 mls/hr Documented By: AMB Levetiracetam 1,000 mg/ Sodium (Chloride) 110 mls @ 440 mls/hr IV BID LYLY Stop: 02/25/23 08:59 Last Infusion: 01/27/23 10:19 Dose: Infused Documented By: Admin: 01/27/23 09:31 Dose: 440 mls/hr Documented By: Infusion: 01/26/23 20:26 Dose: Infused Documented By: Admin: 01/26/23 20:11 Dose: 440 mls/hr Documented By: Infusion: 01/26/23 11:12 Dose: Infused Documented By: Admin: 01/26/23 10:25 Dose: 440 mls/hr Documented By: AMB Ampicillin Sodium/Sulbactam Sodium 3,000 mg/ Sodium Chloride 100 mls @ 100 mls/hr IV Q6H LYLY Stop: 01/27/23 17:59 Last Infusion: 01/25/23 20:01 Dose: Infused Documented By: Admin: 01/25/23 17:56 Dose: 100 mls/hr Documented By: AMB Acetaminophen (Ofirmev) 1,000 mg in 100 mls @ 400 mls/hr IV NOW STA Stop: 01/25/23 22:05 Last Infusion: 01/25/23 22:48 Dose: Infused Documented By: Admin: 01/25/23 22:02 Dose: 400 mls/hr Documented By: ILIANA Vancomycin HCl 2,500 mg/ (Sodium Chloride) 550 mls @ 180 mls/hr IV NOW STA; Protocol Stop: 01/26/23 03:27 Last Infusion: 01/26/23 03:39 Dose: Infused Documented By: Admin: 01/26/23 00:34 Dose: 180 mls/hr Documented By: ILIANA Magnesium Sulfate/Dextrose (Magnesium Sulfate / D5w) 1 gm in 100 mls @ 50 mls/hr IV Q2H LYLY Stop: 01/26/23 10:14 Last Infusion: 01/26/23 12:37 Dose: Infused Documented By: Admin: 01/26/23 08:21 Dose: 50 mls/hr Documented By: Infusion: 01/26/23 08:21 Dose: Infused Documented By: Admin: 01/26/23 06:40 Dose: 50 mls/hr Documented By: ILIANA Vancomycin HCl 1,250 mg/ (Sodium Chloride) 275 mls @ 200 mls/hr IV Q12H LYLY Stop: 01/26/23 18:00 Last Infusion: 01/26/23 12:37 Dose: Infused Documented By: Admin: 01/26/23 10:25 Dose: 200 mls/hr Documented By: ADOLFO Sodium Chloride (Hypertonic Saline 3%) 100 mls @ 600 mls/hr IV .Q10M ONE; Protocol Stop: 01/26/23 08:54 Last Infusion: 01/26/23 12:37 Dose: Infused Documented By: ADOLFO Co-signed By: BRIANNA Admin: 01/26/23 10:03 Dose: 600 mls/hr Documented By: ADOLFO Co-signed By: BRIANNA Vancomycin HCl 1,000 mg/ (Sodium Chloride) 270 mls @ 200 mls/hr IV Q12H LYLY Stop: 02/09/23 21:59 Last Infusion: 01/26/23 23:27 Dose: Infused Documented By: TLGretchen Admin: 01/26/23 21:59 Dose: 200 mls/hr Documented By: MATT Sodium Chloride (Hypertonic Saline 3%) 300 mls @ 900 mls/hr IV .Q20M ONE; Protocol Stop: 01/26/23 18:50 Last Infusion: 01/26/23 20:30 Dose: Infused Documented By: MARILYN Co-signed By: MATT Admin: 01/26/23 20:10 Dose: 900 mls/hr Documented By: MARILYN Co-signed By: MATT Sodium Chloride (Hypertonic Saline 3%) 300 mls @ 900 mls/hr IV .Q20M ONE; Protocol Stop: 01/27/23 01:00 Last Infusion: 01/27/23 01:10 Dose: Infused Documented By: TP Co-signed By: MATT Admin: 01/27/23 00:50 Dose: 900 mls/hr Documented By: MATT Co-signed By: TP Insulin Aspart (Insulin Aspart Per Unit Charge) 0 units SC Q6 [facility] Stop: 02/23/23 05:59 Last Admin: 01/24/23 17:18 Dose: Not Given Documented By: Admin: 01/24/23 11:45 Dose: Not Given Documented By: Admin: 01/24/23 06:11 Dose: Not Given Documented By: JOHN Insulin Aspart (Insulin Aspart Per Unit Charge) 0 units SC ACHS [facility] Stop: 02/23/23 20:59 Last Admin: 01/25/23 08:51 Dose: 1 units Documented By: ADOLFO Co-signed By: THERESA Admin: 01/24/23 19:56 Dose: Not Given Documented By: ARR Insulin Aspart (Insulin Aspart Per Unit Charge) 0 units SC Q6 [facility] Stop: 02/23/23 20:59 Last Admin: 01/26/23 18:01 Dose: Not Given Documented By: Admin: 01/26/23 12:55 Dose: Not Given Documented By: Admin: 01/26/23 05:53 Dose: 2 units Documented By: ILIANA Co-signed By: ISMAEL Admin: 01/26/23 00:32 Dose: 1 units Documented By: ILIANA Co-signed By: ISMAEL Admin: 01/25/23 18:37 Dose: Not Given Documented By: Admin: 01/25/23 14:20 Dose: Not Given Documented By: ADOLFO Ioversol (Optiray 320 125ml) 115 ml IV ONCE ONE Stop: 01/23/23 20:14 Last Admin: 01/23/23 20:13 Dose: 115 ml Documented By: ANAM Lorazepam (Lorazepam 2 Mg/1 Ml Vial) Confirm Administered Dose 2 mg .ROUTE .STK- MED ONE Stop: 01/25/23 00:15 Last Admin: 01/25/23 00:15 Dose: 2 mg Documented By: JOHN Metoprolol Succinate (Metoprolol Succ 50mg Ext Rel Tab) 50 mg PO ONE ONE Stop: 01/24/23 12:00 Last Admin: 01/24/23 11:21 Dose: 50 mg Documented By: HUSAM Metoprolol Tartrate (Metoprolol Tartrate 25 Mg Tab) 25 mg PO ONE ONE Stop: 01/24/23 08:35 Last Admin: 01/24/23 09:12 Dose: 25 mg Documented By: HUSAM Miscellaneous (Icu Protocol For Hyperglycemia) 1 each N/A ACHS [facility] Stop: 01/27/23 07:29 Last Admin: 01/25/23 14:19 Dose: 1 each Documented By: Admin: 01/25/23 07:52 Dose: 1 each Documented By: ADOLFO Norepinephrine Bitartrate (Norepinephrine/D5w 4 Mg/250 Ml) Confirm Administered Dose 4 mg IV .STK-MED ONE Stop: 01/25/23 01:30 Last Admin: 01/25/23 02:13 Dose: Not Given Documented By: LLP Potassium Chloride (Potassium Chloride 20 Meq/15 Ml Udc) 20 meq PO NOW STA Stop: 01/26/23 06:16 Last Admin: 01/26/23 06:40 Dose: 20 meq Documented By: ILIANA Propofol (Propofol Iv Emulsion 10 Mg/Ml 100 Ml Vial) Confirm Administered Dose 1,000 mg IV .STK-MED ONE Stop: 01/25/23 00:43 Last Admin: 01/25/23 02:15 Dose: Not Given Documented By: LLP Sodium Bicarbonate (Sodium Bicarb 8.4% Inj 50 Meq/50 Ml Syr) 50 meq IV NOW STA Stop: 01/25/23 01:24 Last Admin: 01/25/23 01:25 Dose: 50 meq Documented By: LLP Sodium Bicarbonate (Sodium Bicarb 8.4% Inj 50 Meq/50 Ml Syr) 50 meq IV NOW STA Stop: 01/25/23 01:24 Last Admin: 01/25/23 01:25 Dose: 50 meq Documented By: LLP Sodium Bicarbonate (Sodium Bicarb 8.4% Inj 50 Meq/50 Ml Syr) Confirm Administered Dose 100 meq IV .STK-MED ONE Stop: 01/25/23 01:25 Last Admin: 01/25/23 02:10 Dose: Not Given Documented By: ISMAEL Umeclidinium/Vilanterol (Umeclidinium/Vilanterol 62.5/25mcg 7 Puffs/Inhaler) 1 puffs INH DAILY [facility]YLY Stop: 02/23/23 08:59 Last Admin: 01/25/23 09:58 Dose: Not Given Documented By: Admin: 01/24/23 09:13 Dose: 1 puffs Documented By: HUSAM Vecuronium Ashby (Vecuronium Ashby 10 Mg Vial) 10 mg IV NOW STA Stop: 01/25/23 11:29 Last Admin: 01/25/23 11:45 Dose: 10 mg Documented By: TEDDY Co-signed By: ADOLFO Warfarin Sodium (Warfarin Sod 3 Mg Tab) 3 mg PO ONE ONE Stop: 01/24/23 10:07 Last Admin: 01/24/23 11:21 Dose: 3 mg Documented By: HUSAM Description This is a 21 electrode EEG with a single channel dedicated to limited EKG. The electrodes were placed in accordance with the International 10-20 system. REPORT: At the onset of the EEG the patient is in an altered mental state. The background is continuous and appears symmetric. The posterior dominant rhythm is not seen. Instead the background consists of generalized 2-3 hertz polymorphic delta activity with some superimposed faster frequencies that is consistent with myogenic artifact. There is a loss of the normal anterior to posterior gradient. No stage 2 sleep transients are seen. Photic stimulation does not induce any additional abnormalities. Hyperventilation is not performed. Interpretation IMPRESSION: This is an abnormal routine EEG in a patient with altered mentation due to severe generalized background slowing suggestive of a severe nonspecific encephalopathy. No electrographic seizures or epileptiform discharges are seen.
[2023-01-27] MEDS ORDERED: [UNRECOGNIZED DRUG - REMARK] ONE (11:45)
--- NOTE | 2023-01-27 11:50 | Communication Note ---
Date of Service: January 27, 2023 I spoke with the patient's daughter at bedside to give an update. The EEG shows moderate to severe slowing consistent with intubation and sedation. No seizure activity noted. She should remain on Keppra at the current dose. There is no clinically relevant cerebral edema, no risk for herniation given the small to moderate size of her stroke. Please stop hypertonic saline. Her clinical picture is also not consistent with vasculitis. No further workup from a neurologic perspective is needed here. Please continue ICU supportive care working toward extubation. Prognosis is guarded, would have a better sense after extubation so language can be properly assessed. Would anticipate significant dysphagia given the size and location of the stroke.
[2023-01-27] MEDS: SODIUM CHLORIDE 3 % 500 ML IV SCH (11:52)
[2023-01-27] MEDS ORDERED: ACETAMINOPHEN 1000 MG/100 ML IV IV ONE (13:37)
[2023-01-27] MEDS: PANTOprazole 40 MG in SYRINGE 0 ML IV SCH (13:38)
[2023-01-27] MEDS ORDERED: ACETAMINOPHEN 1,000 MG/100 ML VIAL IV PRN (14:34)
[2023-01-27 15:42] LABS: BUN Creatinine Ratio 14.5 (10-20); Calcium 7.9 mg/dl (8.6-10.3); Est GFR (African American) 103.7 ml/min; Est GFR (Non-African American) 89.4 ml/min; Magnesium 2.2 mg/dl (1.7-2.4); Potassium 4.1 mmol/L (3.5-5.1)
[2023-01-27] MEDS: ICU ELECTROLYTE REPLACEMENT PROTOCOL SCH (16:46)
[2023-01-27] MEDS: fentaNYL BOLUS from BAG IV PRN ×2 (17:12→18:25)
[2023-01-27] MEDS: PROPOFOL BOLUS FROM BAG IV PRN (18:25)
[2023-01-27] MEDS: fentaNYL citrate 2,500 MCG/250 ML BAG IV SCH ×2 (20:10→20:20)
[2023-01-27] MEDS: levETIRAcetam ORAL SOLN 100MG/ML NG SCH (20:20)
--- NOTE | 2023-01-27 22:24 | XRay Report ---
SINGLE VIEW CHEST CLINICAL HISTORY: Respiratory failure. FINDINGS: An AP, portable, severe chest radiograph is compared to study performed earlier the same da y 01/27/2023. An endotracheal tube, an enteric tube, and a right internal jugular central venous cath eter are unchanged in position. The heart is enlarged noting atherosclerotic calcification of the tho racic aorta. There is pulmonary vascular congestion. There are increasing airspace opacities in the r ight midlung. No large pleural effusion or pneumothorax is seen. The skeletal structures are osteopen ic. The bony thorax is grossly intact. IMPRESSION: 1. Stable lines and tubes. 2. Cardiomegaly with evidence of congestive failure. 3. There are increasing right perihilar airspace opacities which could represent developing pulmonary edema and/or pneumonia. Clinical correlation will be required and radiographic follow-up to resoluti on is recommended. ACT 112: Negative or not required by law. Electronically signed by: Shamir Gonzalez M.D. 01/27/2023 10:22 PM
[2023-01-28] MEDS: DOPamine / D5W 400 MG/250 ML BAG IV SCH ×3 (01:06→11:18)
[2023-01-28] MEDS: TUBE FEEDING WATER FLUSH NG SCH ×4 (01:08→11:33)
[2023-01-28] MEDS: AMPICILLIN/SULBACTAM SOD 3,000 MG in SODIUM CHLOR 0.9% MINI-B 100 ML IV SCH ×4 (03:08→20:38)
[2023-01-28] MEDS: HEPARIN SODIUM/DEXTROSE 25,000 UNITS/500 ML BAG IV SCH (04:36)
[2023-01-28 04:43] LABS: Basophils # (auto) 0.02 K/uL (0.00-0.20); Basophils % (auto) 0.3 %; Eosinophils # (auto) 0.15 K/uL (0.00-0.50); Hematocrit (blood only) 34.2 % (37.0-47.0); Hemoglobin 11.1 g/dl (12.0-16.0); Immature Granulocytes # (auto) 0.03 K/uL (0.01-0.20); Immature Granulocytes % (auto) 0.4 %; Lymphocytes % (auto) 15.7 %; Mean Corpuscular Hemoglobin 30.9 pg (25.0-34.0); Mean Corpuscular Hgb Conc 32.5 g/dL (32.0-36.0); Mean Corpuscular Volume 95.3 fL (80.0-100.0); Mean Platelet Volume 10.1 fL (9.4-12.4); Monocytes # (auto) 0.73 K/uL (0.11-0.59); Monocytes % (auto) 9.5 %; Neutrophils # (auto) 5.53 K/uL (1.40-6.50); Neutrophils % (auto) 72.1 %; Platelet Count 215 K/uL (130-400); RDW Coefficient of Variation 13.4 % (11.5-14.5); RDW Standard Deviation 47.6 fL (36.4-46.3); Red Blood Count 3.59 M/uL (4.20-5.40); White Blood Count 7.66 K/ul (4.8-10.8)
[2023-01-28 05:06] LABS: BUN Creatinine Ratio 22.6 (10-20); Calcium 8.2 mg/dl (8.6-10.3); Creatinine Clr Calc Pharmacy 104.6 ml/min; Est GFR (African American) 107.4 ml/min; Est GFR (Non-African American) 92.7 ml/min; Magnesium 2.1 mg/dl (1.7-2.4); Phosphorus 2.5 mg/dl (2.5-4.9); Potassium 3.9 mmol/L (3.5-5.1)
[2023-01-28 05:30] LABS: Partial Thromboplastin Ratio 1.6; Prothrombin Time 10.7 Seconds (9.0-12.0)
[2023-01-28 05:45] LABS: Partial Thromboplastin Time 45.3 Seconds (21.0-31.0)
--- NOTE | 2023-01-28 07:23 | XRay Report ---
SINGLE VIEW CHEST CLINICAL HISTORY: Respiratory failure. FINDINGS: An AP, portable, upright chest radiograph is compared to studies dated 01/27/2023. An endot venus tube, an enteric tube, and a right internal jugular central venous catheter are unchanged in position. The heart is enlarged noting atherosclerotic calcification of the thoracic aorta. There is pulmonary vascular congestion. Letter space opacities are similar to previous. No large pleural effus ion or pneumothorax is seen. The skeletal structures are osteopenic. The bony thorax is grossly intac t. IMPRESSION: 1. Stable lines and tubes. 2. Cardiomegaly with evidence of congestive failure. 3. Mild airspace opacities are similar to previous. This could represent mild pulmonary edema and/or pneumonia. Clinical correlation will be required and radiographic follow-up to resolution is recommen ded. ACT 112: Negative or not required by law. Electronically signed by: Shamir Gonzalez M.D. 01/28/2023 7:21 AM
[2023-01-28] MEDS: ICU ELECTROLYTE REPLACEMENT PROTOCOL SCH ×2 (07:25→19:07)
[2023-01-28] MEDS: INSULIN ASPART PER UNIT CHARGE SC SCH ×4 (07:27→23:50)
[2023-01-28] MEDS: AMIODARONE 200 MG TAB PO SCH ×2 (07:34→17:29)
[2023-01-28] MEDS: GABAPENTIN 100 MG CAP PO SCH ×2 (07:35→20:49)
[2023-01-28] MEDS: MULTI VIT W/MINERALS LIQUID 15 ML UDP PO SCH (07:37)
[2023-01-28] MEDS: ATORVASTATIN 40 MG TAB PO SCH (07:37)
[2023-01-28] MEDS: levETIRAcetam ORAL SOLN 100MG/ML NG SCH (07:37)
[2023-01-28] MEDS: MONTELUKAST SODIUM 10 MG TABLET PO SCH (07:39)
[2023-01-28] MEDS: buPROPion XL 300 MG TABCR PO SCH (07:43)
[2023-01-28] MEDS: POTASSIUM CHLORIDE 20 MEQ/15 ML UDC NG SCH ×2 (07:47→10:08)
--- NOTE | 2023-01-28 07:57 | Hospitalist Progress Note ---
Date of Service January 28, 2023 Assessment & Plan (1) Acute CVA (cerebrovascular accident): Plan: 67 yo F with type 2 diabetes, hyperlipidemia, asthma- COPD overlap syndrome, obstructive sleep apnea, persistent atrial fibrillation, nonischemic cardiomyopathy, history of CVA, mitral regurgitation, atherosclerosis of coronary artery, morbid obesity, migraine without aura, depression with anxiety presents with strokelike symptoms. Acute CVA Dysarthria Initial workup with CT scan of head and CTA head and neck unremarkable MRI brain - IMPRESSION: 1. Scattered areas of small infarcts involving the insular region, left posterior centrum semiovale and left frontal and parietal cortex. 2. No intracranial hemorrhage. 3. Underlying microangiopathic white matter disease. Echo obtained Speech evaluation Neurology consulted - ok to stop plavix and do heparin bridge to coumadin Cardiology consulted - pt w/ pAfib, hx of CVAs on eliquis - plan to transition to coumadin w/ heparin bridge Stop Eliquis 01/25 Overnight pt had seizure-like episode, was intubated, started on pressors, currently pt is in ICU. Brain MRI repeated today FINDINGS: Increase in size in the acute to subacute left MCA territory infarct, primarily involving the left frontotemporal region. This infarct measures up to 4 cm in size. A orogastric tube is partially visualized. Fluid levels within the sphenoid sinuses and nasopharynx are noted. The mastoid air cells are clear. The major vascular flow-voids at the skull base are well-maintained. There is no mass, hematoma, midline shift. Mild atrophic changes again noted within the brain. There is an old right MCA territory infarct again noted. Vasogenic edema within the left MCA territory infarct has also progressed. IMPRESSION: Interval progression of the now moderate sized acute to subacute left MCA territory infarct as described above. No midline shift or intracranial hemorrhage identified at this time. Discussed w/ Dr. Patricia Campbell per ICU team - pt remains in critical condition EEG ordered and pending 01/26 Pt remains intubated, she is awake, somewhat restless, opens eyes, moves extremities besides RUE 01/27 Pt remains intubated in critical condition. EEG obtained - No electrographic seizures or epileptiform discharges are seen. 01/28 Pt extubated this AM. Mental status improved. Moves extremities except RUE. Bradycardia History of atrial fibrillation - cont. amiodarone and metoprolol succinate - discussed w/ cardiology echo obtained and reviewed Monitor on telemetry Pt now in ICU on pressor support. Cardiology continues to follow closely - pt may need a pacemaker. amiodarone resumed, hold metoprolol, wean off dopamine cont. IV heparin History of CVA Continue statin Hold Eliquis transition to coumadin, as above poss. Aspiration posit. blood cultx increased secretions noted, fever - cont. Unasyn and vancomycin for now - follow cultures Diabetes On Mounjaro Hold metformin Insulin sliding scale Follow blood sugars Current HbA1c level 6.1% History of asthma/COPD Continue home inhalers Hypertension - at home on metoprolol succinate, losartan Now in ICU, required pressor support Closely cont. to monitor - metoprolol on hold per cardiology Obstructive sleep apnea CPAP nightly now intubated Depression with anxiety On Wellbutrin and amitriptyline Hyperlipidemia On statin obtained lipid profile, LDL 105 DVT prophylaxis SCDs , heparin, per ICU Disposition: ICU Full code Admission and Anticipated Discharge Date Admission Date: January 23, 2023 Subjective Pt seen in follow up of CVA, had seizure episode afterwards, was intubated, on pressors in ICU Pt is still in ICU, extubated this AM. Discussed w/ RN at the bedside in detail. Pt following commands, awake. Moving extremities except R arm. Mental status improved from yesterday. No signs of seizures. Febrile Review of Systems Review of Systems: Unobtainable due to cognitive status Physical Exam Physical Exam: General- elderly obese F, intubated Head- atraumatic Eyes- pupils round small equal Lungs- +rhonchi Heart- regular rhythm; no murmur Abdomen- normal bowel sounds, soft, obese Extremities- trace pretibial edema, no erythema seen. Neuro- limited exam, awake and moving extremities except for R arm, opens eyes, pupils are small round equal Skin- warm & dry Results & Data Results & Data Vital Signs (Past 12 Hours) Vital Signs Pulse Resp BP Pulse Ox Pulse Ox O2 Del Method O2 Del Method 01/28/23 05:30 61 20 95 01/28/23 05:01 146/63 H 01/28/23 05:01 60 20 01/28/23 05:00 64 20 96 01/28/23 04:30 66 20 96 01/28/23 04:00 66 20 95 01/28/23 04:00 66 154/64 H 01/28/23 04:00 01/28/23 03:30 66 20 95 01/28/23 03:30 66 20 95 01/28/23 03:01 153/78 H 01/28/23 03:01 63 20 01/28/23 03:00 63 20 94 01/28/23 02:30 63 20 95 01/28/23 02:01 168/78 H 01/28/23 02:01 66 20 95 01/28/23 02:00 66 20 95 01/28/23 01:30 67 20 95 01/28/23 01:00 169/84 H 01/28/23 01:00 70 20 95 01/28/23 00:30 67 20 96 01/28/23 00:01 153/73 H 01/28/23 00:01 62 20 01/28/23 00:00 62 20 96 01/28/23 00:00 96 Mechanical Vent 01/28/23 00:00 01/27/23 23:30 63 20 95 01/27/23 23:30 62 20 95 01/27/23 23:01 65 20 95 01/27/23 23:01 162/79 H 01/27/23 23:00 66 20 97 01/27/23 22:33 Mechanical Vent 01/27/23 22:30 62 20 97 01/27/23 22:00 66 20 97 01/27/23 21:30 64 20 96 01/27/23 21:01 151/86 H 01/27/23 21:01 65 20 97 01/27/23 21:00 63 20 96 01/27/23 20:30 61 20 96 01/27/23 20:01 64 20 96 01/27/23 20:01 105/63 01/27/23 20:00 64 20 01/27/23 20:00 01/27/23 20:00 58 L 158/62 H O2 Flow Rate FiO2 01/28/23 05:30 01/28/23 05:01 01/28/23 05:01 01/28/23 05:00 01/28/23 04:30 01/28/23 04:00 01/28/23 04:00 01/28/23 04:00 30 01/28/23 03:30 30 01/28/23 03:30 01/28/23 03:01 01/28/23 03:01 01/28/23 03:00 01/28/23 02:30 01/28/23 02:01 01/28/23 02:01 01/28/23 02:00 01/28/23 01:30 01/28/23 01:00 01/28/23 01:00 01/28/23 00:30 01/28/23 00:01 01/28/23 00:01 01/28/23 00:00 01/28/23 00:00 30 01/28/23 00:00 30 01/27/23 23:30 01/27/23 23:30 30 01/27/23 23:01 01/27/23 23:01 01/27/23 23:00 01/27/23 22:33 30 01/27/23 22:30 01/27/23 22:00 01/27/23 21:30 01/27/23 21:01 01/27/23 21:01 01/27/23 21:00 01/27/23 20:30 01/27/23 20:01 01/27/23 20:01 01/27/23 20:00 01/27/23 20:00 30 01/27/23 20:00 Laboratory Results 01/28/23 01/27/23 01/27/23 Range/Units 04:07 20:21 16:24 WBC 7.66 (4.8-10.8) K/ul RBC 3.59 L (4.20-5.40) M/uL Hgb 11.1 L (12.0-16.0) g/dl Hct 34.2 L (37.0-47.0) % MCV 95.3 (80.0-100.0) fL MCH 30.9 (25.0-34.0) pg MCHC 32.5 (32.0-36.0) g/dL RDW Std Deviation 47.6 H (36.4-46.3) fL RDW Coeff of Yeyo 13.4 (11.5-14.5) % Plt Count 215 (130-400) K/uL MPV 10.1 (9.4-12.4) fL Immature Gran % (Auto) 0.4 % Neut % (Auto) 72.1 % Lymph % (Auto) 15.7 % Crisp % (Auto) 9.5 % Eos % (Auto) 2.0 % Baso % (Auto) 0.3 % Neut # (Auto) 5.53 (1.40-6.50) K/uL Lymph # (Auto) 1.20 (1.20-3.40) K/uL Crisp # (Auto) 0.73 H (0.11-0.59) K/uL Eos # (Auto) 0.15 (0.00-0.50) K/uL Baso # (Auto) 0.02 (0.00-0.20) K/uL Immature Gran # (Auto) 0.03 (0.01-0.20) K/uL PT 10.7 (9.0-12.0) Seconds INR 1.0 (0.9-1.1) APTT 45.3 H* (21.0-31.0) Seconds PTT Ratio 1.6 Sodium 137 (136-145) mmol/L Potassium 3.9 (3.5-5.1) mmol/L Chloride 107 (98-107) mmol/L Carbon Dioxide 23 (21-32) mmol/L Anion Gap 7 (3-11) BUN 14 (6-23) mg/dl Creatinine 0.62 (0.6-1.2) mg/dl Est Cr Clr Drug Dosing 104.6 ml/min Est GFR ( Amer) 107.4 ml/min Est GFR (Non-Af Amer) 92.7 ml/min BUN/Creatinine Ratio 22.6 H (10-20) Glucose 155 H (70-99(Fasting)) mg/dl POC Glucose 152 H (70-99) mg/dl POC Glucose (other) 158 H (70-99) mg/dl Calcium 8.2 L (8.6-10.3) mg/dl Phosphorus 2.5 D (2.5-4.9) mg/dl Magnesium 2.1 (1.7-2.4) mg/dl 01/27/23 01/27/23 01/27/23 Range/Units 14:53 12:13 09:27 WBC (4.8-10.8) K/ul RBC (4.20-5.40) M/uL Hgb (12.0-16.0) g/dl Hct (37.0-47.0) % MCV (80.0-100.0) fL MCH (25.0-34.0) pg MCHC (32.0-36.0) g/dL RDW Std Deviation (36.4-46.3) fL RDW Coeff of Yeyo (11.5-14.5) % Plt Count (130-400) K/uL MPV (9.4-12.4) fL Immature Gran % (Auto) % Neut % (Auto) % Lymph % (Auto) % Crisp % (Auto) % Eos % (Auto) % Baso % (Auto) % Neut # (Auto) (1.40-6.50) K/uL Lymph # (Auto) (1.20-3.40) K/uL Crisp # (Auto) (0.11-0.59) K/uL Eos # (Auto) (0.00-0.50) K/uL Baso # (Auto) (0.00-0.20) K/uL Immature Gran # (Auto) (0.01-0.20) K/uL PT (9.0-12.0) Seconds INR (0.9-1.1) APTT (21.0-31.0) Seconds PTT Ratio Sodium 140 (136-145) mmol/L Potassium 4.1 (3.5-5.1) mmol/L Chloride 110 H (98-107) mmol/L Carbon Dioxide 23 (21-32) mmol/L Anion Gap 7 (3-11) BUN 10 (6-23) mg/dl Creatinine 0.69 (0.6-1.2) mg/dl Est Cr Clr Drug Dosing 94.0 ml/min Est GFR ( Amer) 103.7 ml/min Est GFR (Non-Af Amer) 89.4 ml/min BUN/Creatinine Ratio 14.5 (10-20) Glucose 179 H (70-99(Fasting)) mg/dl POC Glucose 159 H (70-99) mg/dl POC Glucose (other) 154 H (70-99) mg/dl Calcium 7.9 L (8.6-10.3) mg/dl Phosphorus 4.0 D (2.5-4.9) mg/dl Magnesium 2.2 (1.7-2.4) mg/dl Medications Administered Current Inpatient Medications Amiodarone HCl (Amiodarone 200 Mg Tab) 200 mg PO BIDM [facility] Stop: 02/23/23 16:59 Last Admin: 01/28/23 07:34 Dose: 200 mg Atorvastatin Calcium (Atorvastatin 40 Mg Tab) 80 mg PO QAM [facility] Stop: 02/24/23 08:59 Last Admin: 01/28/23 07:37 Dose: 80 mg Bupropion HCl (Bupropion Xl 300 Mg Tabcr) 300 mg PO DAILY [facility] Stop: 02/23/23 08:59 Last Admin: 01/28/23 07:43 Dose: Not Given Dextrose (Dextrose 50% 50 Ml Syringe) 25 - 50 ml IV UD PRN; Protocol PRN Reason: Hypoglycemia Protocol Stop: 02/23/23 00:12 Fentanyl Citrate (Fentanyl Bolus From Bag) 50 mcg IV Q60M PRN PRN Reason: Pain or Agitation Stop: 02/08/23 02:41 Last Admin: 01/27/23 18:25 Dose: 50 mcg Gabapentin (Gabapentin 100 Mg Cap) 100 mg PO BID [facility] Stop: 02/23/23 08:59 Last Admin: 01/28/23 07:35 Dose: 100 mg Glucagon (Glucagon For Inj 1 Mg Vial) 1 mg SQ UD PRN; Protocol PRN Reason: Hypoglycemia Protocol Stop: 02/23/23 00:12 Glucose (Glucose 10 Tab/Tube) 4 - 8 tab PO UD PRN; Protocol PRN Reason: Hypoglycemia Treatment Stop: 02/23/23 00:12 Glucose (Glucose 40% Gel 15 Gm Tube) 15 - 30 gm PO UD PRN; Protocol PRN Reason: Hypoglycemia Protocol Stop: 02/23/23 00:12 Dopamine HCl/Dextrose (Dopamine / D5w) 400 mg in 250 mls @ 27.405 mls/hr IV .Q9H8M [facility]; Protocol Stop: 02/24/23 01:29 Last Admin: 01/28/23 03:20 Dose: 7 mcg/kg/min, 27.4 mls/hr Norepinephrine Bitartrate (Levophed/D5w) 4 mg in 250 mls @ 0 mls/hr IV .Q0M [facility]; Protocol Stop: 02/24/23 01:59 Last Titration: 01/25/23 19:13 Dose: 0 mcg/kg/min, 0 mls/hr Heparin Sodium/Dextrose (Heparin Sodium/Dextrose) 25,000 units in 500 mls @ 20 mls/hr IV .Q24H [facility]; Protocol Stop: 02/24/23 02:44 Last Titration: 01/28/23 07:09 Dose: 1,000 units/hr, 20 mls/hr Fentanyl Citrate (Fentanyl Citrate) 2,500 mcg in 250 mls @ 7.5 mls/hr IV .[id number] [facility]; Protocol Stop: 02/08/23 02:44 Last Titration: 01/28/23 07:09 Dose: 75 mcg/hr, 7.5 mls/hr Ampicillin Sodium/Sulbactam Sodium 3,000 mg/ Sodium Chloride 100 mls @ 100 mls/hr IV Q6H [facility] Stop: 02/02/23 08:59 Last Admin: 01/28/23 07:47 Dose: 100 mls/hr Pantoprazole Sodium 40 mg/ (Syringe) 10 mls @ 5 mls/min IV DAILY@1100 L[facility]; Protocol Stop: 02/26/23 11:59 Last Admin: 01/27/23 13:38 Dose: 5 mls/min Acetaminophen (Ofirmev) 1,000 mg in 100 mls @ 400 mls/hr IV Q8H PRN PRN Reason: Fever or headache Stop: 01/31/23 14:33 Insulin Aspart (Insulin Aspart Per Unit Charge) 0 units SC ACHS [facility] Stop: 02/25/23 20:59 Last Admin: 01/28/23 07:27 Dose: Not Given Levetiracetam (Levetiracetam Oral Soln 100mg/Ml) 1,000 mg NG BID [facility] Stop: 02/26/23 20:59 Last Admin: 01/28/23 07:37 Dose: 1,000 mg Lorazepam (Lorazepam 0.5 Mg Tab) 0.5 mg PO Q6H PRN PRN Reason: Anxiety Stop: 02/25/23 10:50 Losartan Potassium (Losartan Potassium 50 Mg Tab) 50 mg PO DAILY [facility] Stop: 02/23/23 08:59 Last Admin: 01/24/23 07:37 Dose: 50 mg Metoprolol Succinate (Metoprolol Succ 50mg Ext Rel Tab) 100 mg PO BID [facility] Stop: 02/23/23 20:59 Last Admin: 01/24/23 20:00 Dose: 100 mg Miscellaneous (Carbohydrates For Hypoglycemia ) 15 - 30 gm PO UD PRN PRN Reason: Hypoglycemia Protocol Stop: 02/23/23 00:12 Miscellaneous (Icu Electrolyte Replacement Protocol) 1 each N/A BID@06,18 [facility]; Protocol Stop: 02/03/23 17:59 Last Admin: 01/28/23 07:25 Dose: Not Given Miscellaneous Information (Pharmacist Discharge Med Rec Consult) 1 each N/A UD PRN PRN Reason: Consult Stop: 02/23/23 00:12 Montelukast Sodium (Montelukast Sodium 10 Mg Tablet) 10 mg PO DAILY LYLY Stop: 02/23/23 08:59 Last Admin: 01/28/23 07:39 Dose: 10 mg Multivitamins/Minerals (Multi Vit W/Minerals Liquid 15 Ml Udp) 15 ml PO QAM [facility] Stop: 02/26/23 08:59 Last Admin: 01/28/23 07:37 Dose: 15 ml Nitroglycerin (Nitroglycerin Sl 0.4 Mg/Tab Tab) 0.4 mg SL Q5M PRN PRN Reason: Chest Pain Stop: 02/23/23 00:12 Nortriptyline HCl (Nortriptyline Hcl 25 Mg Cap) 25 mg PO HS LYLY Stop: 02/23/23 20:59 Last Admin: 01/24/23 20:00 Dose: 25 mg Nutritional Formula (Peptamen Intense Vhp 1.0 August 1,000 Ml Bag) 1,000 ml OG .SeeProtocol [facility]; Protocol Stop: 02/25/23 11:14 Last Admin: 01/26/23 15:07 Dose: 1,000 ml Potassium Chloride (Potassium Chloride 20 Meq/15 Ml Udc) 20 meq NG Q4H [facility] Stop: 01/28/23 10:31 Last Admin: 01/28/23 07:47 Dose: 20 meq Sterile Water (Tube Feeding Water Flush) 30 ml NG Q4 [facility] Stop: 02/25/23 11:59 Last Admin: 01/28/23 07:35 Dose: 30 ml Zinc Acetate/Diphenhydramine (Diphenhydramine 2%/Zinc 0.1% Cream 28.4gm Tube) 1 appln EXT BID PRN PRN Reason: Itching Stop: 02/23/23 05:55 Last Admin: 01/24/23 20:02 Dose: 1 appln
--- NOTE | 2023-01-28 07:58 | Critical Care Progress Note ---
Date of Service January 28, 2023 Assessment & Plan (1) Acute CVA (cerebrovascular accident): (2) Sleep apnea: (3) T2DM (type 2 diabetes mellitus): (4) Stroke-like symptoms: (5) Encounter for pre-operative examination: (6) Atrial fibrillation: (7) Seizure-like activity: (8) Required emergent intubation: (9) Symptomatic bradycardia: (10) Encephalopathy: Plan Reason Critically Ill: Patient with reported seizure like activity remained encephalopathic/post ictal, required emergent intubation for sedation to rule out intracranial process, as well as symptomatic bradycardia requiring vasoactive support. Recommendations: Neuro -- Recurrent CVA Likely secondary to Eliquis failure. CT shows progression of stroke with surrounding vasogenic edema. Keep head of bed elevated at 30 degrees. Echo with bubble showed no [id number] shunt. Patient's daughter was offered transfer [facility] given the vasogenic edema and multifocal strokes. She is comfortable keeping her here for now. Continue Keppra EEG did not show any seizure-like activity. Cardiac - -- Tachy-josé syndrome Currently on dopamine Continue to hold beta-blockers May require permanent pacemaker Echocardiogram demonstrated severe pulmonary hypertension. Sinew with heparin drip Cardiology on board Respiratory - -- VDRF Likely secondary to altered mental status with acute stroke Continue with ventilatory support Keep RASS -1 GI Continue with tube feeds RENAL/LYTES - Monitor BUNs/creatinine - - Continue La catheter ENDO - glycemic control per protocol. HEME - NO acute concerns at this time ID - -- Blood culture showing staph epi which is likely contaminant, repeat blood culture negative to date Procalcitonin 0.2 Vancomycin discontinued Continue with Unasyn for 7 days --Prophylaxis VTE: Heparin drip GI: Pantoprazole Lines: Right IJ, right radial, positive La, positive ETT Diet: Tube feeds Plan: In/out: +1.8 L, urine output 1620, +9.2 L since coming to the hospital Will try to put the patient on pressure support and if she is doing well on it then trial of extubation will be given to BiPAP I did discuss with the patient's daughter that the probability of patient aspirating is there but given the improvement in her mental status In 24 hours is a good sign Will give 40 mg of Lasix today. Continue with Keppra. Try to wean off dopamine if possible. If the patient's blood pressure systolic stays persistently greater than 180 then hydralazine as needed and will be added I have personally spent 37 minutes of critical care time in the direct management of this patient. This is a life/limb threatening event. This includes time spent evaluating patient, direct bedside care, chart review, placing orders, interpretation of diagnostic studies, discussion with consultants, patient, and family members, as well as other required patient management activities. This time is exclusive of all separately billable procedures, and teaching time and separate from and in addition to any other critical care service time. Admission and Anticipated Discharge Date Admission Date: January 23, 2023 Subjective Patient seen and examined at bedside. No acute distress, no adverse events overnight. Patient was on dopamine 7 at the time of examination. Her MAP was in the 190s with heart rate in the 90s as well. I turned the dopamine off. She was on fentanyl 75 which was also turned off and she was put on pressure support She is more alert today. Is following some commands. Actively moving the left upper and left lower as well as right lower extremity Spiking low-grade fever Review of Systems 2 Review of Systems: Unobtainable due to mental health condition and Unobtainable due to endotracheal tube Physical Exam 2 Physical Exam: Constitutional: No acute distress HEENT: PERRLA Respiratory system: Decreased air entry bilaterally, positive wheeze, positive rhonchi, positive crackles bilateral lower lobes CVS: S1-S2 positive, no murmurs or gallops Abdomen: Soft, nontender, nondistended, positive bowel sounds x4 Extremities: +2 pulses bilaterally radialis/ dorsalis pedis, no cyanosis, no edema Neuro: Positive pupillary positive gag, positive corneal, breathing over the vent, able to move left upper extremity as well as bilateral lower extremity, no movement in the right upper extremity, 2/5 strength right lower extremity Psych: Unable to assess G/U: Positive La Skin: no rashes, warm and dry Lymphatic: no cervical or axillary lymphadenopathy Results & Data Results & Data Vital Signs (Past 12 Hours) Vital Signs Pulse Resp BP Pulse Ox Pulse Ox O2 Del Method O2 Del Method 01/28/23 05:30 61 20 95 01/28/23 05:01 146/63 H 01/28/23 05:01 60 20 01/28/23 05:00 64 20 96 01/28/23 04:30 66 20 96 01/28/23 04:00 66 20 95 01/28/23 04:00 66 154/64 H 01/28/23 04:00 01/28/23 03:30 66 20 95 01/28/23 03:30 66 20 95 01/28/23 03:01 153/78 H 01/28/23 03:01 63 20 01/28/23 03:00 63 20 94 01/28/23 02:30 63 20 95 01/28/23 02:01 168/78 H 01/28/23 02:01 66 20 95 01/28/23 02:00 66 20 95 01/28/23 01:30 67 20 95 01/28/23 01:00 169/84 H 01/28/23 01:00 70 20 95 01/28/23 00:30 67 20 96 01/28/23 00:01 153/73 H 01/28/23 00:01 62 20 01/28/23 00:00 62 20 96 01/28/23 00:00 96 Mechanical Vent 01/28/23 00:00 01/27/23 23:30 63 20 95 01/27/23 23:30 62 20 95 01/27/23 23:01 65 20 95 01/27/23 23:01 162/79 H 01/27/23 23:00 66 20 97 01/27/23 22:33 Mechanical Vent 01/27/23 22:30 62 20 97 01/27/23 22:00 66 20 97 01/27/23 21:30 64 20 96 01/27/23 21:01 151/86 H 01/27/23 21:01 65 20 97 01/27/23 21:00 63 20 96 01/27/23 20:30 61 20 96 01/27/23 20:01 64 20 96 01/27/23 20:01 105/63 01/27/23 20:00 64 20 01/27/23 20:00 01/27/23 20:00 58 L 158/62 H O2 Flow Rate FiO2 01/28/23 05:30 01/28/23 05:01 01/28/23 05:01 01/28/23 05:00 01/28/23 04:30 01/28/23 04:00 01/28/23 04:00 01/28/23 04:00 30 01/28/23 03:30 30 01/28/23 03:30 01/28/23 03:01 01/28/23 03:01 01/28/23 03:00 01/28/23 02:30 01/28/23 02:01 01/28/23 02:01 01/28/23 02:00 01/28/23 01:30 01/28/23 01:00 01/28/23 01:00 01/28/23 00:30 01/28/23 00:01 01/28/23 00:01 01/28/23 00:00 01/28/23 00:00 30 01/28/23 00:00 30 01/27/23 23:30 01/27/23 23:30 30 01/27/23 23:01 01/27/23 23:01 01/27/23 23:00 01/27/23 22:33 30 01/27/23 22:30 01/27/23 22:00 01/27/23 21:30 01/27/23 21:01 01/27/23 21:01 01/27/23 21:00 01/27/23 20:30 01/27/23 20:01 01/27/23 20:01 01/27/23 20:00 01/27/23 20:00 30 01/27/23 20:00 Laboratory Results 01/28/23 04:07 01/28/23 04:07 Coding Level of Care Code 09099 CRITICAL CARE 1ST 30-74M Diagnoses Acute CVA (cerebrovascular accident) I63.9 Sleep apnea G47.30 T2DM (type 2 diabetes mellitus) E11.9 Stroke-like symptoms R29.90 Encounter for pre-operative examination Z01.818 Atrial fibrillation I48.91 Seizure-like activity R56.9 Required emergent intubation Z98.890 Symptomatic bradycardia R00.1 Encephalopathy G93.40
[2023-01-28] MEDS ORDERED: FORMOTEROL 20 MCG/2 ML VIAL ONE (09:36)
[2023-01-28] MEDS: BUDESONIDE 0.25 MG/2 ML VIAL (PULMICORT) NEB SCH ×2 (09:40→19:59)
[2023-01-28] MEDS ORDERED: FUROSEMIDE 40 MG/4 ML VIAL IV ONE (10:00)
[2023-01-28] MEDS: PANTOprazole 40 MG in SYRINGE 0 ML IV SCH (10:07)
--- NOTE | 2023-01-28 14:15 | Cardiology Progress Note ---
Date of Service January 28, 2023 Assessment & Plan (1) Acute CVA (cerebrovascular accident): (2) Paroxysmal atrial fibrillation: (3) Tachycardia-bradycardia syndrome: (4) Symptomatic bradycardia: Plan Complex 67-year-old female presenting with cerebrovascular accident and Eliquis failure. Developed seizure-like activity early a.m. 01/25 requiring intubation with significant bradycardia on telemetry. Extubated today. Beta-omar and amiodarone placed on hold 01/25/2023. Amiodarone restarted 01/26 due to concerns for recurrent PAF. Dobutamine weaned off. Continue amiodarone 200 mg twice daily. Hold metoprolol. Heart rate within acceptable range without overt indication for pacemaker currently. Continue IV heparin. Admission and Anticipated Discharge Date Admission Date: January 23, 2023 Subjective Patient seen and examined at bedside. Extubated today. Following commands. Heart rate elevated, however, somewhat agitated currently. No significant bradycardia overnight. Tolerating amiodarone. Metoprolol remains on hold. Cultures negative thus far. No fever since yesterday afternoon. Review of Systems Review of Systems: Unobtainable due to mental health condition Physical Exam Constitutional: well developed and well nourished; no acute distress Respiratory: no respiratory distress and no labored breathing Auscultation: no crackles, no rales, no rhonchi and no wheezes Cardiovascular: Rate/Rhythm: regular rate, regular rhythm and + bradycardic Heart Sounds: normal S1, normal S2 and + murmur (1/6 systolic ejection murmur heard at the base) Vessels: no JVD Extremities: no edema Gastrointestinal (Abdomen): Inspection/Auscultation: abdomen normal to inspection and normal bowel sounds; abdomen not distended Percussion/Palpation: abdomen nontender, no guarding and abdomen not rigid Results & Data Vital Signs (Past 12 Hours) Vital Signs Temp Pulse Pulse Resp BP Pulse Ox O2 Del Method 01/28/23 10:30 68 21 97 01/28/23 10:26 69 24 100 01/28/23 10:01 131/68 01/28/23 10:01 37.3 C 57 L 21 98 01/28/23 10:00 55 L 21 97 01/28/23 09:40 54 L 19 100 Mechanical Vent 01/28/23 09:30 57 L 17 98 01/28/23 09:00 58 L 19 98 01/28/23 09:00 148/70 H 01/28/23 08:30 37.1 C 83 17 98 01/28/23 08:00 91 H 16 98 01/28/23 08:00 01/28/23 07:47 Mechanical Vent 01/28/23 07:45 85 13 92 01/28/23 07:01 150/68 H 01/28/23 07:01 59 L 20 96 01/28/23 07:00 60 20 96 01/28/23 05:30 61 20 95 01/28/23 05:01 146/63 H 01/28/23 05:01 60 20 01/28/23 05:00 64 20 96 01/28/23 04:30 66 20 96 01/28/23 04:00 66 20 95 01/28/23 04:00 66 154/64 H 01/28/23 04:00 01/28/23 03:30 66 20 95 01/28/23 03:30 66 20 95 01/28/23 03:01 153/78 H 01/28/23 03:01 63 20 01/28/23 03:00 63 20 94 01/28/23 02:30 63 20 95 FiO2 01/28/23 10:30 01/28/23 10:26 30 01/28/23 10:01 01/28/23 10:01 01/28/23 10:00 01/28/23 09:40 30 01/28/23 09:30 01/28/23 09:00 01/28/23 09:00 01/28/23 08:30 01/28/23 08:00 01/28/23 08:00 30 01/28/23 07:47 30 01/28/23 07:45 30 01/28/23 07:01 01/28/23 07:01 01/28/23 07:00 01/28/23 05:30 01/28/23 05:01 01/28/23 05:01 01/28/23 05:00 01/28/23 04:30 01/28/23 04:00 01/28/23 04:00 01/28/23 04:00 30 01/28/23 03:30 30 01/28/23 03:30 01/28/23 03:01 01/28/23 03:01 01/28/23 03:00 01/28/23 02:30 Laboratory Results Coagulation 01/28/23 Range/Units 04:07 PT 10.7 (9.0-12.0) Seconds APTT 45.3 H* (21.0-31.0) Seconds CBC 01/28/23 Range/Units 04:07 WBC 7.66 (4.8-10.8) K/ul RBC 3.59 L (4.20-5.40) M/uL Hgb 11.1 L (12.0-16.0) g/dl Hct 34.2 L (37.0-47.0) % Plt Count 215 (130-400) K/uL Neut # (Auto) 5.53 (1.40-6.50) K/uL Lymph # (Auto) 1.20 (1.20-3.40) K/uL [place] # (Auto) 0.73 H (0.11-0.59) K/uL Eos # (Auto) 0.15 (0.00-0.50) K/uL Baso # (Auto) 0.02 (0.00-0.20) K/uL Comprehensive Metabolic Panel 01/27/23 01/28/23 Range/Units 14:53 04:07 Sodium 140 137 (136-145) mmol/L Potassium 4.1 3.9 (3.5-5.1) mmol/L Chloride 110 H 107 (98-107) mmol/L Carbon Dioxide 23 23 (21-32) mmol/L BUN 10 14 (6-23) mg/dl Creatinine 0.69 0.62 (0.6-1.2) mg/dl Glucose 179 H 155 H (70-99(Fasting)) mg/dl Calcium 7.9 L 8.2 L (8.6-10.3) mg/dl Intake and Output 01/27/23 01/28/23 01/28/23 22:59 06:59 14:59 Intake Total 1227.953 / 3324.683 938.943 / 3324.683 258.805 / 258.805 Output Total 725 / 1620 245 / 1620 Balance 502.953 / 1704.683 693.943 / 1704.683 258.805 / 258.805 Intake: IV 412.953 / 2069.683 498.943 / 2069.683 258.805 / 258.805 Ampicillin/Sulbactam Sod 3,000 200 / 400 100 / 400 mg In Sodium Chlor 0.9% Mini-B 100 ml @ 100 mls/hr IV Q6H [facility] Rx#:[id number] DOPamine / D5W 400 mg In 250 ml 195.453 / 541.803 300.943 / 541.803 121.93 / 121.93 @ 7 MCG/KG/MIN 27.405 mls/hr IV .Q9H8M [facility] Rx#:[id number] Heparin Sodium/Dextrose 25,000 31.333 / 31.333 51 / 51 units In 500 ml @ 1,000 UNITS/ HR 20 mls/hr IV .Q24H [facility] Rx#: [id number] fentaNYL citrate 2,500 mcg In 17.5 / 37.75 85.875 / 85.875 250 ml @ 75 MCG/HR 7.5 mls/hr IV .[id number] [facility] Rx#:[id number] propofoL 1,000 mg In 100 ml @ 0 / 97.464 66.667 / 97.464 20 MCG/KG/MIN 12.528 mls/hr IV .Q7H59M L[facility] Rx#:[id number] Oral 65 / 65 Tube Feeding 565 / 1005 440 / 1005 Tube Irrigant 180 / 180 Other 5 / 5 Output: Urine Amount (Catheter) 725 / 1620 245 / 1620 La/Indwelling 725 / 1620 245 / 1620
[2023-01-28] MEDS ORDERED: ALBUT/IPRATROP 3MG/0.5MG NEB 3 ML VIAL NEB PRN (15:42)
[2023-01-28 16:29] LABS: BUN Creatinine Ratio 21.5 (10-20); Calcium 8.4 mg/dl (8.6-10.3); Creatinine Clr Calc Pharmacy 99.8 ml/min; Est GFR (African American) 105.7 ml/min; Est GFR (Non-African American) 91.2 ml/min; Phosphorus 2.8 mg/dl (2.5-4.9); Potassium 4.2 mmol/L (3.5-5.1)
[2023-01-28] MEDS ORDERED: FUROSEMIDE INJ 20 MG/2 ML VIAL IV ONE (19:22)
[2023-01-28] MEDS: FORMOTEROL 20 MCG/2 ML VIAL INH SCH (19:58)
[2023-01-28] MEDS ORDERED: Nursing to Pharmacy Communication SCH ×2 (20:15→21:00)
[2023-01-28] MEDS: levETIRAcetam 1,000 MG in 0.9 % SODIUM CHLORIDE 100 ML IV SCH (21:11)
[2023-01-29] MEDS: AMPICILLIN/SULBACTAM SOD 3,000 MG in SODIUM CHLOR 0.9% MINI-B 100 ML IV SCH ×4 (03:22→20:06)
[2023-01-29] MEDS: HEPARIN SODIUM/DEXTROSE 25,000 UNITS/500 ML BAG IV SCH (03:26)
[2023-01-29 05:08] LABS: Basophils # (auto) 0.03 K/uL (0.00-0.20); Basophils % (auto) 0.5 %; Eosinophils # (auto) 0.11 K/uL (0.00-0.50); Hematocrit (blood only) 32.3 % (37.0-47.0); Hemoglobin 10.6 g/dl (12.0-16.0); Immature Granulocytes # (auto) 0.07 K/uL (0.01-0.20); Immature Granulocytes % (auto) 1.3 %; Lymphocytes # (auto) 1.36 K/uL (1.20-3.40); Lymphocytes % (auto) 24.5 %; Mean Corpuscular Hemoglobin 31.2 pg (25.0-34.0); Mean Corpuscular Hgb Conc 32.8 g/dL (32.0-36.0); Mean Platelet Volume 9.6 fL (9.4-12.4); Monocytes % (auto) 14.4 %; Neutrophils # (auto) 3.17 K/uL (1.40-6.50); Neutrophils % (auto) 57.3 %; Platelet Count 242 K/uL (130-400); RDW Coefficient of Variation 13.5 % (11.5-14.5); RDW Standard Deviation 47.7 fL (36.4-46.3); White Blood Count 5.54 K/ul (4.8-10.8)
[2023-01-29 05:16] LABS: BUN Creatinine Ratio 23.4 (10-20); Calcium 8.6 mg/dl (8.6-10.3); Creatinine Clr Calc Pharmacy 101.3 ml/min; Est GFR (African American) 106.3 ml/min; Est GFR (Non-African American) 91.7 ml/min; Magnesium 1.9 mg/dl (1.7-2.4); Phosphorus 4.4 mg/dl (2.5-4.9); Potassium 3.7 mmol/L (3.5-5.1)
[2023-01-29] MEDS: MAGNESIUM SULFATE / D5W 1 GM/100 ML BAG IV SCH ×2 (06:03→08:02)
[2023-01-29 06:08] LABS: Partial Thromboplastin Ratio 1.7; Prothrombin Time 10.9 Seconds (9.0-12.0)
[2023-01-29] MEDS: POTASSIUM CHLORIDE / WTR 20 MEQ/100 ML PLCT IV SCH ×2 (06:10→08:02)
[2023-01-29] MEDS: INSULIN ASPART PER UNIT CHARGE SC SCH ×3 (06:10→17:49)
[2023-01-29 06:12] LABS: Partial Thromboplastin Time 47.2 Seconds (21.0-31.0)
[2023-01-29] MEDS: ICU ELECTROLYTE REPLACEMENT PROTOCOL SCH ×2 (06:40→17:05)
--- NOTE | 2023-01-29 07:10 | XRay Report ---
XR chest 1V portable HISTORY: 67 years-old Female resp failure acute respiratory failure COMPARISON: 01/28/2023 TECHNIQUE: AP view of the chest FINDINGS: Cardiac silhouette is enlarged. Right IJ central venous catheter distal tip projects over the right a trium. Status post extubation with removal of the enteric tube. Cardiac silhouette is enlarged. There is improved aeration of the lung bases. Pulmonary vascular congestion with interstitial coarsening. Mild linear left lung base atelectasis versus scarring. No pneumothorax or large pleural effusion. Nakul rafaela appear grossly intact. IMPRESSION: 1. Interval removal of the endotracheal and enteric tubes. 2. Unchanged positioning of the right IJ central venous catheter. 3. Cardiomegaly with mild pulmonary edema. ACT 112: Negative or not required by law. The above report was generated using voice recognition software. It may contain grammatical, syntax o r spelling errors. Electronically signed by: Morris Garcia M.D. 01/29/2023 7:09 AM
[2023-01-29] MEDS: FORMOTEROL 20 MCG/2 ML VIAL INH SCH ×2 (07:50→19:56)
[2023-01-29] MEDS: BUDESONIDE 0.25 MG/2 ML VIAL (PULMICORT) NEB SCH ×2 (07:50→19:56)
[2023-01-29] MEDS ORDERED: FUROSEMIDE INJ 20 MG/2 ML VIAL IV ONE (08:00)
[2023-01-29] MEDS: ATORVASTATIN 40 MG TAB PO SCH (08:02)
[2023-01-29] MEDS: AMIODARONE 200 MG TAB PO SCH ×2 (08:02→16:07)
--- NOTE | 2023-01-29 08:02 | Critical Care Progress Note ---
Date of Service January 29, 2023 Assessment & Plan (1) Acute CVA (cerebrovascular accident): (2) Sleep apnea: (3) T2DM (type 2 diabetes mellitus): (4) Stroke-like symptoms: (5) Encounter for pre-operative examination: (6) Atrial fibrillation: (7) Seizure-like activity: (8) Required emergent intubation: (9) Symptomatic bradycardia: (10) Encephalopathy: Plan Reason Critically Ill: Patient with reported seizure like activity remained encephalopathic/post ictal, required emergent intubation for sedation to rule out intracranial process, as well as symptomatic bradycardia requiring vasoactive support. Recommendations: Neuro -- Recurrent CVA Likely secondary to Eliquis failure. CT shows progression of stroke with surrounding vasogenic edema. Keep head of bed elevated at 30 degrees. Echo with bubble showed no [id number]-[id number] shunt. Patient's daughter was offered transfer to [facility] given the vasogenic edema and multifocal strokes. She is comfortable keeping her here for now. Continue Keppra EEG did not show any seizure-like activity. Cardiac - -- Tachy-josé syndrome Off of dopamine as of 01/28/2023 Continue to hold beta-blockers May require permanent pacemaker Echocardiogram demonstrated severe pulmonary hypertension. Continue with heparin drip Cardiology on board Respiratory - -- S/p VDRF --> extubated 01/29/2020 Likely secondary to altered mental status with acute stroke -- Asthma Continue with inhaled bronchodilators -- Aspiration pneumonia Complete the course of antibiotics for 7 days --LILI Uses CPAP at home GI Continue with tube feeds RENAL/LYTES - Monitor BUNs/creatinine - - Continue La catheter ENDO - glycemic control per protocol. HEME - NO acute concerns at this time ID - -- Blood culture showing staph epi which is likely contaminant, repeat blood culture negative to date Procalcitonin 0.2 Vancomycin discontinued Continue with Unasyn for 7 days --Prophylaxis VTE: Heparin drip GI: Pantoprazole Lines: Right IJ, right radial removed 01/28/2023, positive La Diet: Tube feeds Plan: In/out: -2.3 L, urine output 3765 We will give another 20 mg of Lasix today. Potassium and magnesium are being replaced. Keppra has been changed to IV. Patient was only able to do ice chips. Repeat swallow eval tomorrow. If the patient persistently has difficulty swallowing then NGT placement could be thought of poor medication DC Bessie central line prior to downgrade Continue with BiPAP nightly and as needed shortness of breath Was discussed with Dr. Calderon Please note the above document was generated using voice recognition software. It may contain grammatical, syntax or spelling errors.Any formal questions or concerns about the content, text or information contained within the body of this dictation should be directly addressed to the provider for clarification. Admission and Anticipated Discharge Date Admission Date: January 23, 2023 Subjective Patient seen and examined at bedside. No acute distress, no adverse events overnight She was saturating 98% on 3 L nasal cannula, I went down to 1 L Patient daughter was also in the room. Patient is trying to communicate but I think because of the stroke she is aphasic Able to move her left upper extremity as well as bilateral lower extremities to command. Is n.p.o. Has been off vasopressors and dopamine for more than 24 hours Review of Systems 2 Review of Systems: All systems reviewed & are unremarkable except as noted in Subjective and Unobtainable due to cognitive status Physical Exam 2 Physical Exam: Constitutional: No acute distress HEENT: PERRLA Respiratory system: Decreased air entry bilaterally, no wheeze, positive rhonchi, positive crackles bilateral lower lobes CVS: S1-S2 positive, no murmurs or gallops Abdomen: Soft, nontender, nondistended, positive bowel sounds x4 Extremities: +2 pulses bilaterally radialis/ dorsalis pedis, no cyanosis, no edema Neuro: Positive pupillary positive gag, positive corneal, breathing over the vent, able to move left upper extremity as well as bilateral lower extremity, no movement in the right upper extremity, 2/5 strength right lower extremity Psych: Normal mood and affect G/U: Positive La Skin: no rashes, warm and dry Lymphatic: no cervical or axillary lymphadenopathy Results & Data Results & Data Vital Signs (Past 12 Hours) Vital Signs Temp Pulse Pulse Resp BP BP Pulse Ox 01/29/23 07:57 77 18 97 01/29/23 06:41 124/59 L 01/29/23 06:30 36.7 C 80 18 100 01/29/23 06:00 36.6 C 75 15 100 01/29/23 05:30 36.5 C 75 18 98 01/29/23 05:00 36.5 C 66 17 100 01/29/23 04:30 36.6 C 68 16 100 01/29/23 04:00 36.6 C 70 18 111/51 L 99 01/29/23 03:30 36.7 C 62 17 98 01/29/23 03:10 70 16 99 01/29/23 03:00 36.7 C 68 22 97 01/29/23 02:30 36.8 C 69 15 97 01/29/23 02:00 36.7 C 72 20 116/51 L 96 01/29/23 02:00 36.7 C 01/29/23 01:30 36.7 C 76 18 97 01/29/23 01:00 36.8 C 75 16 98 01/29/23 01:00 36.8 C 01/29/23 00:55 17 98 01/29/23 00:30 74 19 99 01/29/23 00:00 83 22 98 01/29/23 00:00 36.9 C 130/69 01/28/23 23:30 70 17 99 01/28/23 23:00 71 18 99 01/28/23 23:00 37 C 01/28/23 22:50 74 01/28/23 22:30 74 19 99 01/28/23 22:23 76 28 H 97 01/28/23 22:00 74 17 99 01/28/23 22:00 37.4 C 01/28/23 21:15 74 17 100 01/28/23 21:00 74 16 99 01/28/23 21:00 37.6 C H 01/28/23 20:30 72 21 99 O2 Del Method O2 Flow Rate FiO2 01/29/23 07:57 Nasal Cannula 2 01/29/23 06:41 01/29/23 06:30 01/29/23 06:00 BiPAP 30 01/29/23 05:30 01/29/23 05:00 BiPAP 30 01/29/23 04:30 01/29/23 04:00 BiPAP 30 01/29/23 03:30 01/29/23 03:10 3 01/29/23 03:00 BiPAP 30 01/29/23 02:30 01/29/23 02:00 01/29/23 02:00 01/29/23 01:30 01/29/23 01:00 01/29/23 01:00 01/29/23 00:55 2 01/29/23 00:30 01/29/23 00:00 BiPAP 30 01/29/23 00:00 01/28/23 23:30 01/28/23 23:00 BiPAP 30 01/28/23 23:00 01/28/23 22:50 01/28/23 22:30 01/28/23 22:23 30 01/28/23 22:00 Nasal Cannula 2 01/28/23 22:00 01/28/23 21:15 01/28/23 21:00 Nasal Cannula 2 01/28/23 21:00 01/28/23 20:30 Laboratory Results 01/29/23 04:32 01/29/23 04:32 Coding Level of Care Code 25482 SUB INP/OBS CARE 3/50MIN Diagnoses Acute CVA (cerebrovascular accident) I63.9 Sleep apnea G47.30 T2DM (type 2 diabetes mellitus) E11.9 Stroke-like symptoms R29.90 Encounter for pre-operative examination Z01.818 Atrial fibrillation I48.91 Seizure-like activity R56.9 Required emergent intubation Z98.890 Symptomatic bradycardia R00.1 Encephalopathy G93.40
[2023-01-29] MEDS: GABAPENTIN 100 MG CAP PO SCH ×2 (08:03→19:58)
[2023-01-29] MEDS: MULTI VIT W/MINERALS LIQUID 15 ML UDP PO SCH (08:03)
[2023-01-29] MEDS: MONTELUKAST SODIUM 10 MG TABLET PO SCH (08:03)
[2023-01-29] MEDS: levETIRAcetam 1,000 MG in 0.9 % SODIUM CHLORIDE 100 ML IV SCH ×2 (08:13→20:06)
--- NOTE | 2023-01-29 08:57 | Hospitalist Progress Note ---
Date of Service January 29, 2023 Assessment & Plan (1) Acute CVA (cerebrovascular accident): Plan: 67 yo F with type 2 diabetes, hyperlipidemia, asthma- COPD overlap syndrome, obstructive sleep apnea, persistent atrial fibrillation, nonischemic cardiomyopathy, history of CVA, mitral regurgitation, atherosclerosis of coronary artery, morbid obesity, migraine without aura, depression with anxiety presents with strokelike symptoms. Acute CVA Dysarthria Initial workup with CT scan of head and CTA head and neck unremarkable MRI brain - IMPRESSION: 1. Scattered areas of small infarcts involving the insular region, left posterior centrum semiovale and left frontal and parietal cortex. 2. No intracranial hemorrhage. 3. Underlying microangiopathic white matter disease. Echo obtained Speech evaluation Neurology consulted - ok to stop plavix and do heparin bridge to coumadin Cardiology consulted - pt w/ pAfib, hx of CVAs on eliquis - plan to transition to coumadin w/ heparin bridge Stop Eliquis 01/25 Overnight pt had seizure-like episode, was intubated, started on pressors, currently pt is in ICU. Brain MRI repeated today FINDINGS: Increase in size in the acute to subacute left MCA territory infarct, primarily involving the left frontotemporal region. This infarct measures up to 4 cm in size. A orogastric tube is partially visualized. Fluid levels within the sphenoid sinuses and nasopharynx are noted. The mastoid air cells are clear. The major vascular flow-voids at the skull base are well-maintained. There is no mass, hematoma, midline shift. Mild atrophic changes again noted within the brain. There is an old right MCA territory infarct again noted. Vasogenic edema within the left MCA territory infarct has also progressed. IMPRESSION: Interval progression of the now moderate sized acute to subacute left MCA territory infarct as described above. No midline shift or intracranial hemorrhage identified at this time. Discussed w/ Dr. Patricia Campbell per ICU team - pt remains in critical condition EEG ordered 01/26 Pt remains intubated, she is awake, somewhat restless, opens eyes, moves extremities besides RUE 01/27 Pt remains intubated in critical condition. EEG obtained - No electrographic seizures or epileptiform discharges are seen. 01/28 Pt extubated this AM. Mental status improved. Moves extremities except RUE. 01/29 Pt on suppl. O2. Mental status seems improved. Moves extremities besides RUE. Follows some simple commands. No PO intake yet. Aphasic. Bradycardia History of atrial fibrillation - cont. amiodarone and metoprolol succinate - discussed w/ cardiology echo obtained and reviewed Monitor on telemetry Pt now in ICU on pressor support. Cardiology continues to follow closely - pt may need a pacemaker. amiodarone resumed, hold metoprolol, wean off dopamine cont. IV heparin 01/29 Pt started on IV metoprolol around the clock as not able to take PO meds yet History of CVA Continue statin Hold Eliquis transition to coumadin, as above poss. Aspiration posit. blood cultx increased secretions noted, fever - cont. Unasyn and vancomycin for now - follow cultures Diabetes On Mounjaro Hold metformin Insulin sliding scale Follow blood sugars Current HbA1c level 6.1% History of asthma/COPD Continue home inhalers Hypertension - at home on metoprolol succinate, losartan Now in ICU, required pressor support Closely cont. to monitor - metoprolol on hold per cardiology Obstructive sleep apnea CPAP nightly now intubated Depression with anxiety On Wellbutrin and amitriptyline Hyperlipidemia On statin obtained lipid profile, LDL 105 DVT prophylaxis SCDs , heparin, per ICU Disposition: ICU Full code Admission and Anticipated Discharge Date Admission Date: January 23, 2023 Subjective Pt seen in follow up of CVA, had seizure episode afterwards, was intubated, on pressors in ICU Pt was extubated yesterday AM, now PCU status. Discussed w/ family and RN at the bedside in detail. Pt following commands, awake. Moving extremities except R arm. Mental status seems improved. No signs of seizures. Not able to swallow yet, aphasic. Cardiology following, metoprolol IV scheduled around clock. (at home on amiodarone) Daughter (Dr. Enid Patel) updated over the phone. Review of Systems Review of Systems: Unobtainable due to cognitive status Physical Exam Physical Exam: General- elderly obese F (extubated), on suppl. O2 Head- atraumatic Eyes- pupils round small equal Lungs- +rhonchi Heart- regular rhythm; no murmur Abdomen- normal bowel sounds, soft, obese Extremities- trace pretibial edema, no erythema seen. Neuro- limited exam, awake and moving extremities except for R arm, opens eyes Skin- warm & dry Results & Data Results & Data Vital Signs (Past 12 Hours) Vital Signs Temp Pulse Pulse Resp BP BP Pulse Ox 01/29/23 07:57 77 18 97 01/29/23 06:41 124/59 L 01/29/23 06:30 36.7 C 80 18 100 01/29/23 06:00 36.6 C 75 15 100 01/29/23 05:30 36.5 C 75 18 98 01/29/23 05:00 36.5 C 66 17 100 01/29/23 04:30 36.6 C 68 16 100 01/29/23 04:00 36.6 C 70 18 111/51 L 99 01/29/23 03:30 36.7 C 62 17 98 01/29/23 03:10 70 16 99 01/29/23 03:00 36.7 C 68 22 97 01/29/23 02:30 36.8 C 69 15 97 01/29/23 02:00 36.7 C 72 20 116/51 L 96 01/29/23 02:00 36.7 C 01/29/23 01:30 36.7 C 76 18 97 01/29/23 01:00 36.8 C 75 16 98 01/29/23 01:00 36.8 C 01/29/23 00:55 17 98 01/29/23 00:30 74 19 99 01/29/23 00:00 83 22 98 01/29/23 00:00 36.9 C 130/69 01/28/23 23:30 70 17 99 01/28/23 23:00 71 18 99 01/28/23 23:00 37 C 01/28/23 22:50 74 01/28/23 22:30 74 19 99 01/28/23 22:23 76 28 H 97 01/28/23 22:00 74 17 99 01/28/23 22:00 37.4 C 01/28/23 21:15 74 17 100 01/28/23 21:00 74 16 99 01/28/23 21:00 37.6 C H O2 Del Method O2 Flow Rate FiO2 01/29/23 07:57 Nasal Cannula 2 01/29/23 06:41 01/29/23 06:30 01/29/23 06:00 BiPAP 30 01/29/23 05:30 01/29/23 05:00 BiPAP 30 01/29/23 04:30 01/29/23 04:00 BiPAP 30 01/29/23 03:30 01/29/23 03:10 3 01/29/23 03:00 BiPAP 30 01/29/23 02:30 01/29/23 02:00 01/29/23 02:00 01/29/23 01:30 01/29/23 01:00 01/29/23 01:00 01/29/23 00:55 2 01/29/23 00:30 01/29/23 00:00 BiPAP 30 01/29/23 00:00 01/28/23 23:30 01/28/23 23:00 BiPAP 30 01/28/23 23:00 01/28/23 22:50 01/28/23 22:30 01/28/23 22:23 30 01/28/23 22:00 Nasal Cannula 2 01/28/23 22:00 01/28/23 21:15 01/28/23 21:00 Nasal Cannula 2 01/28/23 21:00 Laboratory Results 01/29/23 01/29/23 01/28/23 Range/Units 06:06 04:32 23:49 WBC 5.54 (4.8-10.8) K/ul RBC 3.40 L (4.20-5.40) M/uL Hgb 10.6 L (12.0-16.0) g/dl Hct 32.3 L (37.0-47.0) % MCV 95.0 (80.0-100.0) fL MCH 31.2 (25.0-34.0) pg MCHC 32.8 (32.0-36.0) g/dL RDW Std Deviation 47.7 H (36.4-46.3) fL RDW Coeff of Yeyo 13.5 (11.5-14.5) % Plt Count 242 (130-400) K/uL MPV 9.6 (9.4-12.4) fL Immature Gran % (Auto) 1.3 % Neut % (Auto) 57.3 % Lymph % (Auto) 24.5 % [place] % (Auto) 14.4 % Eos % (Auto) 2.0 % Baso % (Auto) 0.5 % Neut # (Auto) 3.17 (1.40-6.50) K/uL Lymph # (Auto) 1.36 (1.20-3.40) K/uL [place] # (Auto) 0.80 H (0.11-0.59) K/uL Eos # (Auto) 0.11 (0.00-0.50) K/uL Baso # (Auto) 0.03 (0.00-0.20) K/uL Immature Gran # (Auto) 0.07 (0.01-0.20) K/uL PT 10.9 (9.0-12.0) Seconds INR 1.0 (0.9-1.1) APTT 47.2 H* (21.0-31.0) Seconds PTT Ratio 1.7 Sodium 137 (136-145) mmol/L Potassium 3.7 (3.5-5.1) mmol/L Chloride 101 (98-107) mmol/L Carbon Dioxide 29 (21-32) mmol/L Anion Gap 7 (3-11) BUN 15 (6-23) mg/dl Creatinine 0.64 (0.6-1.2) mg/dl Est Cr Clr Drug Dosing 101.3 ml/min Est GFR ( Amer) 106.3 ml/min Est GFR (Non-Af Amer) 91.7 ml/min BUN/Creatinine Ratio 23.4 H (10-20) Glucose 117 H (70-99(Fasting)) mg/dl POC Glucose 103 H 134 H (70-99) mg/dl Calcium 8.6 (8.6-10.3) mg/dl Phosphorus 4.4 D (2.5-4.9) mg/dl Magnesium 1.9 (1.7-2.4) mg/dl 01/28/23 01/28/23 01/28/23 Range/Units 17:59 15:40 11:30 WBC (4.8-10.8) K/ul RBC (4.20-5.40) M/uL Hgb (12.0-16.0) g/dl Hct (37.0-47.0) % MCV (80.0-100.0) fL MCH (25.0-34.0) pg MCHC (32.0-36.0) g/dL RDW Std Deviation (36.4-46.3) fL RDW Coeff of Yeyo (11.5-14.5) % Plt Count (130-400) K/uL MPV (9.4-12.4) fL Immature Gran % (Auto) % Neut % (Auto) % Lymph % (Auto) % [place] % (Auto) % Eos % (Auto) % Baso % (Auto) % Neut # (Auto) (1.40-6.50) K/uL Lymph # (Auto) (1.20-3.40) K/uL [place] # (Auto) (0.11-0.59) K/uL Eos # (Auto) (0.00-0.50) K/uL Baso # (Auto) (0.00-0.20) K/uL Immature Gran # (Auto) (0.01-0.20) K/uL PT (9.0-12.0) Seconds INR (0.9-1.1) APTT (21.0-31.0) Seconds PTT Ratio Sodium 137 (136-145) mmol/L Potassium 4.2 (3.5-5.1) mmol/L Chloride 102 (98-107) mmol/L Carbon Dioxide 28 (21-32) mmol/L Anion Gap 7 (3-11) BUN 14 (6-23) mg/dl Creatinine 0.65 (0.6-1.2) mg/dl Est Cr Clr Drug Dosing 99.8 ml/min Est GFR ( Amer) 105.7 ml/min Est GFR (Non-Af Amer) 91.2 ml/min BUN/Creatinine Ratio 21.5 H (10-20) Glucose 131 H (70-99(Fasting)) mg/dl POC Glucose 112 H 125 H (70-99) mg/dl Calcium 8.4 L (8.6-10.3) mg/dl Phosphorus 2.8 (2.5-4.9) mg/dl Magnesium 2.0 (1.7-2.4) mg/dl Medications Administered Current Inpatient Medications Albuterol (Albut/Ipratrop 3mg/0.5mg Neb 3 Ml Vial) 3 ml NEB Q4R PRN; Protocol PRN Reason: Shortness Of Breath Or Wheezing Stop: 02/27/23 18:59 Last Admin: 01/28/23 15:48 Dose: 3 ml Amiodarone HCl (Amiodarone 200 Mg Tab) 200 mg PO BIDM LYLY Stop: 02/23/23 16:59 Last Admin: 01/29/23 08:02 Dose: Not Given Atorvastatin Calcium (Atorvastatin 40 Mg Tab) 80 mg PO QAM [facility] Stop: 02/24/23 08:59 Last Admin: 01/29/23 08:02 Dose: Not Given Budesonide (Budesonide 0.25 Mg/2 Ml Vial (Pulmicort)) 0.25 mg NEB BIDR [facility] Stop: 02/27/23 18:59 Last Admin: 01/29/23 07:50 Dose: 0.25 mg Bupropion HCl (Bupropion Xl 300 Mg Tabcr) 300 mg PO DAILY [facility] Stop: 02/23/23 08:59 Last Admin: 01/28/23 07:43 Dose: Not Given Dextrose (Dextrose 50% 50 Ml Syringe) 25 - 50 ml IV UD PRN; Protocol PRN Reason: Hypoglycemia Protocol Stop: 02/23/23 00:12 Fentanyl Citrate (Fentanyl Bolus From Bag) 50 mcg IV Q60M PRN PRN Reason: Pain or Agitation Stop: 02/08/23 02:41 Last Admin: 01/27/23 18:25 Dose: 50 mcg Formoterol Fumarate (Formoterol 20 Mcg/2 Ml Vial) 20 mcg INH BIDR [facility] Stop: 02/27/23 18:59 Last Admin: 01/29/23 07:50 Dose: 20 mcg Gabapentin (Gabapentin 100 Mg Cap) 100 mg PO BID [facility] Stop: 02/23/23 08:59 Last Admin: 01/29/23 08:03 Dose: Not Given Glucagon (Glucagon For Inj 1 Mg Vial) 1 mg SQ UD PRN; Protocol PRN Reason: Hypoglycemia Protocol Stop: 02/23/23 00:12 Glucose (Glucose 10 Tab/Tube) 4 - 8 tab PO UD PRN; Protocol PRN Reason: Hypoglycemia Treatment Stop: 02/23/23 00:12 Glucose (Glucose 40% Gel 15 Gm Tube) 15 - 30 gm PO UD PRN; Protocol PRN Reason: Hypoglycemia Protocol Stop: 02/23/23 00:12 Dopamine HCl/Dextrose (Dopamine / D5w) 400 mg in 250 mls @ 0 mls/hr IV .Q0M LYLY; Protocol Stop: 02/24/23 01:29 Last Admin: 01/28/23 11:18 Dose: Not Given Heparin Sodium/Dextrose (Heparin Sodium/Dextrose) 25,000 units in 500 mls @ 20 mls/hr IV .Q24H [facility]; Protocol Stop: 02/24/23 02:44 Last Admin: 01/29/23 03:26 Dose: 1,000 units/hr, 20 mls/hr Fentanyl Citrate (Fentanyl Citrate) 2,500 mcg in 250 mls @ 0 mls/hr IV .Q0M LYLY; Protocol Stop: 02/08/23 02:44 Last Titration: 01/28/23 14:43 Dose: Infused Ampicillin Sodium/Sulbactam Sodium 3,000 mg/ Sodium Chloride 100 mls @ 100 mls/hr IV Q6H [facility] Stop: 02/02/23 08:59 Last Admin: 01/29/23 08:13 Dose: 100 mls/hr Pantoprazole Sodium 40 mg/ (Syringe) 10 mls @ 5 mls/min IV DAILY@1100 LYLY; Protocol Stop: 02/26/23 11:59 Last Admin: 01/28/23 10:07 Dose: 5 mls/min Acetaminophen (Ofirmev) 1,000 mg in 100 mls @ 400 mls/hr IV Q8H PRN PRN Reason: Fever or headache Stop: 01/31/23 14:33 Last Infusion: 01/28/23 20:19 Dose: Infused Levetiracetam 1,000 mg/ Sodium (Chloride) 110 mls @ 440 mls/hr IV BID [facility] Stop: 02/27/23 20:59 Last Admin: 01/29/23 08:13 Dose: 440 mls/hr Magnesium Sulfate/Dextrose (Magnesium Sulfate / D5w) 1 gm in 100 mls @ 50 mls/hr IV Q2H [facility] Stop: 01/29/23 09:29 Last Admin: 01/29/23 08:02 Dose: 50 mls/hr Potassium Chloride (K Alejo / Wtr) 20 meq in 100 mls @ 50 mls/hr IV Q2H [facility] Stop: 01/29/23 09:29 Last Admin: 01/29/23 08:02 Dose: 50 mls/hr Insulin Aspart (Insulin Aspart Per Unit Charge) 0 units SC Q6 [facility] Stop: 02/25/23 20:59 Last Admin: 01/29/23 06:10 Dose: Not Given Lorazepam (Lorazepam 0.5 Mg Tab) 0.5 mg PO Q6H PRN PRN Reason: Anxiety Stop: 02/25/23 10:50 Losartan Potassium (Losartan Potassium 50 Mg Tab) 50 mg PO DAILY LYLY Stop: 02/23/23 08:59 Last Admin: 01/24/23 07:37 Dose: 50 mg Metoprolol Succinate (Metoprolol Succ 50mg Ext Rel Tab) 100 mg PO BID LYLY Stop: 02/23/23 20:59 Last Admin: 01/24/23 20:00 Dose: 100 mg Miscellaneous (Carbohydrates For Hypoglycemia ) 15 - 30 gm PO UD PRN PRN Reason: Hypoglycemia Protocol Stop: 02/23/23 00:12 Miscellaneous (Icu Electrolyte Replacement Protocol) 1 each N/A BID@,18 [facility]; Protocol Stop: 02/03/23 17:59 Last Admin: 01/29/23 06:40 Dose: 1 each Miscellaneous Information (Pharmacist Discharge Med Rec Consult) 1 each N/A UD PRN PRN Reason: Consult Stop: 02/23/23 00:12 Montelukast Sodium (Montelukast Sodium 10 Mg Tablet) 10 mg PO DAILY LYLY Stop: 02/23/23 08:59 Last Admin: 01/29/23 08:03 Dose: Not Given Multivitamins/Minerals (Multi Vit W/Minerals Liquid 15 Ml Udp) 15 ml PO QAM LYLY Stop: 02/26/23 08:59 Last Admin: 01/29/23 08:03 Dose: Not Given Nitroglycerin (Nitroglycerin Sl 0.4 Mg/Tab Tab) 0.4 mg SL Q5M PRN PRN Reason: Chest Pain Stop: 02/23/23 00:12 Nortriptyline HCl (Nortriptyline Hcl 25 Mg Cap) 25 mg PO HS [facility] Stop: 02/23/23 20:59 Last Admin: 01/24/23 20:00 Dose: 25 mg Nutritional Formula (Peptamen Intense Vhp 1.0 August 1,000 Ml Bag) 1,000 ml OG .SeeProtocol [facility]; Protocol Stop: 02/25/23 11:14 Last Admin: 01/26/23 15:07 Dose: 1,000 ml Zinc Acetate/Diphenhydramine (Diphenhydramine 2%/Zinc 0.1% Cream 28.4gm Tube) 1 appln EXT BID PRN PRN Reason: Itching Stop: 02/23/23 05:55 Last Admin: 01/24/23 20:02 Dose: 1 appln
[2023-01-29] MEDS: PANTOprazole 40 MG in SYRINGE 0 ML IV SCH (11:25)
--- NOTE | 2023-01-29 13:40 | Cardiology Progress Note ---
Date of Service January 29, 2023 Assessment & Plan (1) Acute CVA (cerebrovascular accident): (2) Paroxysmal atrial fibrillation: (3) Tachycardia-bradycardia syndrome: (4) Symptomatic bradycardia: Plan Complex 67-year-old female presenting with cerebrovascular accident and Eliquis failure. Developed seizure-like activity early a.m. 01/25 requiring intubation with significant bradycardia on telemetry. Extubated 01/28/2023. Currently, patient unable to swallow. Last dose of amiodarone yesterday 01/20/2023. Recommend addition of IV Lopressor. Restart amiodarone when able. Heart rate within acceptable range without overt indication for pacemaker curre ntly. Continue IV heparin. Admission and Anticipated Discharge Date Admission Date: January 23, 2023 Subjective Patient seen examined the bedside. Extubated. Awake and alert off ventilator. Aphasic. Right upper extremity paralysis with left upper extremity weakness. Moving both feet. Following commands. Unable to swallow. Remains in sinus rhythm on telemetry. Last dose of amiodarone yesterday a.m. 01/28/2023. Review of Systems Review of Systems: All systems reviewed & are unremarkable except as noted in Subjective Physical Exam 2 Constitutional: well developed and well nourished; no acute distress Respiratory: no respiratory distress and no labored breathing Auscultation: no crackles, no rales, no rhonchi and no wheezes Cardiovascular: Rate/Rhythm: regular rate, regular rhythm and + bradycardic Heart Sounds: normal S1, normal S2 and + murmur (1/6 systolic ejection murmur heard at the base) Vessels: no JVD Extremities: no edema Gastrointestinal (Abdomen): Inspection/Auscultation: abdomen normal to inspection and normal bowel sounds; abdomen not distended Percussion/Palpation: abdomen nontender, no guarding and abdomen not rigid Results & Data Vital Signs (Past 12 Hours) Vital Signs Temp Pulse Pulse Resp BP BP Pulse Ox 01/29/23 12:30 86 16 94 01/29/23 12:00 88 23 94 01/29/23 12:00 150/74 H 01/29/23 11:30 85 23 96 01/29/23 11:00 172/85 H 01/29/23 11:00 91 H 27 H 96 01/29/23 10:30 74 19 93 01/29/23 10:01 141/61 H 11/29/23 10:01 69 23 86 L 01/29/23 10:00 66 20 90 01/29/23 09:48 01/29/23 09:30 84 18 98 01/29/23 09:00 36.8 C 83 17 97 01/29/23 09:00 127/59 L 01/29/23 08:30 36.8 C 81 19 100 01/29/23 08:00 135/63 01/29/23 08:00 36.6 C 79 18 100 01/29/23 07:57 77 18 97 01/29/23 07:30 36.6 C 71 15 100 01/29/23 07:00 117/60 01/29/23 07:00 36.6 C 73 17 100 01/29/23 06:41 124/59 L 01/29/23 06:30 36.7 C 80 18 100 01/29/23 06:00 36.6 C 75 15 100 01/29/23 05:30 36.5 C 75 18 98 01/29/23 05:00 36.5 C 66 17 100 01/29/23 04:30 36.6 C 68 16 100 01/29/23 04:00 36.6 C 70 18 111/51 L 99 01/29/23 03:30 36.7 C 62 17 98 01/29/23 03:10 70 16 99 01/29/23 03:00 36.7 C 68 22 97 01/29/23 02:30 36.8 C 69 15 97 01/29/23 02:00 36.7 C 72 20 116/51 L 96 01/29/23 02:00 36.7 C O2 Del Method O2 Flow Rate FiO2 01/29/23 12:30 01/29/23 12:00 01/29/23 12:00 01/29/23 11:30 01/29/23 11:00 01/29/23 11:00 01/29/23 10:30 01/29/23 10:01 01/29/23 10:01 01/29/23 10:00 01/29/23 09:48 Nasal Cannula 2 01/29/23 09:30 01/29/23 09:00 01/29/23 09:00 01/29/23 08:30 01/29/23 08:00 01/29/23 08:00 01/29/23 07:57 Nasal Cannula 2 01/29/23 07:30 01/29/23 07:00 01/29/23 07:00 01/29/23 06:41 01/29/23 06:30 01/29/23 06:00 BiPAP 30 01/29/23 05:30 01/29/23 05:00 BiPAP 30 01/29/23 04:30 01/29/23 04:00 BiPAP 01/29/23 03:30 01/29/23 03:10 3 01/29/23 03:00 BiPAP 30 01/29/23 02:30 01/29/23 02:00 01/29/23 02:00 Laboratory Results Coagulation 01/29/23 Range/Units 04:32 PT 10.9 (9.0-12.0) Seconds APTT 47.2 H* (21.0-31.0) Seconds CBC 01/29/23 Range/Units 04:32 WBC 5.54 (4.8-10.8) K/ul RBC 3.40 L (4.20-5.40) M/uL Hgb 10.6 L (12.0-16.0) g/dl Hct 32.3 L (37.0-47.0) % Plt Count 242 (130-400) K/uL Neut # (Auto) 3.17 (1.40-6.50) K/uL Lymph # (Auto) 1.36 (1.20-3.40) K/uL [place] # (Auto) 0.80 H (0.11-0.59) K/uL Eos # (Auto) 0.11 (0.00-0.50) K/uL Baso # (Auto) 0.03 (0.00-0.20) K/uL Comprehensive Metabolic Panel 01/28/23 01/29/23 Range/Units 15:40 04:32 Sodium 137 137 (136-145) mmol/L Potassium 4.2 3.7 (3.5-5.1) mmol/L Chloride 102 101 (98-107) mmol/L Carbon Dioxide 28 29 (21-32) mmol/L BUN 14 15 (6-23) mg/dl Creatinine 0.65 0.64 (0.6-1.2) mg/dl Glucose 131 H 117 H (70-99(Fasting)) mg/dl Calcium 8.4 L 8.6 (8.6-10.3) mg/dl Intake and Output 01/28/23 01/29/23 01/29/23 22:59 06:59 14:59 Intake Total 649.333 / 1694.471 266.333 / 1694.471 602.500 / 602.500 Output Total 1410 / 3765 505 / 3765 Balance -760.667 / -2070.529 -238.667 / -2070.529 602.500 / 602.500 Intake: IV 649.333 / 1274.471 266.333 / 1274.471 602.500 / 602.500 Acetaminophen 1,000 mg In 100 100 / 100 ml @ 400 mls/hr IV Q8H PRN Rx#: [id number] Ampicillin/Sulbactam Sod 3,000 200 / 400 100 / 400 100 / 100 mg In Sodium Chlor 0.9% Mini-B 100 ml @ 100 mls/hr IV Q6H LYLY Rx#:[id number] DOPamine / D5W 400 mg In 250 ml 0 / 0 @ 0 MCG/KG/MIN IV .Q0M LYLY Rx# :[id number] Heparin Sodium/Dextrose 25,000 239.333 / 456.666 166.333 / 456.666 units In 500 ml @ 1,000 UNITS/ HR 20 mls/hr IV .Q24H LYLY Rx#: [id number] Magnesium Sulfate / D5w 1 gm In 199.167 / 199.167 100 ml @ 50 mls/hr IV Q2H LYLY Rx#:[id number] Norepinephrine/D5w 4 mg In 250 0 / 0 ml @ 0 MCG/KG/MIN IV .Q0M LYLY Rx#:[id number] Potassium Chloride / Wtr 20 meq 193.333 / 193.333 In 100 ml @ 50 mls/hr IV Q2H LYLY Rx#:[id number] levETIRAcetam 1,000 mg In 0.9 % 110 / 110 110 / 110 Sodium Chloride 100 ml @ 440 mls/hr IV BID LYLY Rx#:[id number] propofoL 1,000 mg In 100 ml @ 0 / 0 20 MCG/KG/MIN 12.528 mls/hr IV .Q7H59M LYLY Rx#:[id number] Output: Urine Amount (Catheter) 1410 / 3765 505 / 3765 La/Indwelling 1410 / 3765 505 / 3765 Other: Weight 103.5 kg Weight Measurement Method Built in [facility]
[2023-01-29 16:14] LABS: BUN Creatinine Ratio 21.4 (10-20); Calcium 8.9 mg/dl (8.6-10.3); Creatinine Clr Calc Pharmacy 93.5 ml/min; Est GFR (African American) 103.2 ml/min; Potassium 4.2 mmol/L (3.5-5.1)
[2023-01-29 16:58] LABS: Magnesium 2.1 mg/dl (1.7-2.4)
[2023-01-29] MEDS: METOPROLOL TARTRATE 1 MG/ML VIAL IV SCH (17:48)
[2023-01-30 00:02] LABS: ANCA Screen Negative (Negative); Anti Nuclear Antibody Screen NEGATIVE (NEGATIVE); Complement C3 135 mg/dL (83-193); Complement Total(CH50) >60 U/mL (31-60); Myeloperoxidase Ab <1.0 AI (<1.0); Proteinase-3 AB <1.0 AI (<1.0)
[2023-01-30] MEDS ORDERED: ATROPINE SULFATE 0.1 MG/ML 10ML SYR IV PRN (00:40)
--- NOTE | 2023-01-30 00:42 | Communication Note ---
Date of Service: January 30, 2023 12:30 AM Made aware by RN of episodic bradycardia. Heart rate 30s to 40s. SBP 140s. Patient comfortable and asleep as per RN. AP Asymptomatic bradycardia hx TBS as per records Decrease current Lopressor IV dose from 5 mg IV every 6 hours to 2.5 mg IV every 6 hours Hold amiodarone for now until patient evaluated by Cardiology in a.m.
[2023-01-30] MEDS: INSULIN ASPART PER UNIT CHARGE SC SCH ×5 (00:47→20:38)
[2023-01-30] MEDS: METOPROLOL TARTRATE 1 MG/ML VIAL IV SCH (00:48)
[2023-01-30 01:24] LABS: Thyroid Stimulating Hormone 1.319 uIu/ml (0.300-4.500)
[2023-01-30] MEDS: AMPICILLIN/SULBACTAM SOD 3,000 MG in SODIUM CHLOR 0.9% MINI-B 100 ML IV SCH ×4 (03:05→20:45)
[2023-01-30 04:49] LABS: Basophils # (auto) 0.01 K/uL (0.00-0.20); Basophils % (auto) 0.2 %; Eosinophils % (auto) 1.6 %; Hematocrit (blood only) 33.5 % (37.0-47.0); Hemoglobin 10.7 g/dl (12.0-16.0); Immature Granulocytes # (auto) 0.13 K/uL (0.01-0.20); Immature Granulocytes % (auto) 2.1 %; Lymphocytes # (auto) 1.16 K/uL (1.20-3.40); Lymphocytes % (auto) 18.5 %; Mean Corpuscular Hemoglobin 30.8 pg (25.0-34.0); Mean Corpuscular Hgb Conc 31.9 g/dL (32.0-36.0); Mean Corpuscular Volume 96.5 fL (80.0-100.0); Mean Platelet Volume 9.3 fL (9.4-12.4); Monocytes # (auto) 0.91 K/uL (0.11-0.59); Monocytes % (auto) 14.5 %; Neutrophils # (auto) 3.97 K/uL (1.40-6.50); Neutrophils % (auto) 63.1 %; Platelet Count 262 K/uL (130-400); RDW Coefficient of Variation 13.5 % (11.5-14.5); RDW Standard Deviation 48.3 fL (36.4-46.3); Red Blood Count 3.47 M/uL (4.20-5.40); White Blood Count 6.28 K/ul (4.8-10.8)
[2023-01-30 04:56] LABS: BUN Creatinine Ratio 21.9 (10-20); Calcium 8.5 mg/dl (8.6-10.3); Creatinine Clr Calc Pharmacy 89.6 ml/min; Est GFR (African American) 98.1 ml/min; Est GFR (Non-African American) 84.6 ml/min; Phosphorus 4.1 mg/dl (2.5-4.9); Potassium 3.8 mmol/L (3.5-5.1)
[2023-01-30] MEDS ORDERED: Nursing to Pharmacy Communication SCH ×2 (05:15→11:45)
[2023-01-30] MEDS: HEPARIN SODIUM/DEXTROSE 25,000 UNITS/500 ML BAG IV SCH (05:23)
[2023-01-30] MEDS ORDERED: METOPROLOL TARTRATE 1 MG/ML VIAL IV SCH (06:00)
[2023-01-30 06:37] LABS: Partial Thromboplastin Ratio 1.7
[2023-01-30 06:47] LABS: Partial Thromboplastin Time 46.7 Seconds (21.0-31.0)
--- NOTE | 2023-01-30 07:01 | XRay Report ---
XR chest 1V portable HISTORY: 67 years-old Female resp failure acute respiratory failure COMPARISON: 01/29/2023 at 6:57 AM TECHNIQUE: AP view of the chest FINDINGS: Cardiac silhouette is enlarged. Persistent pulmonary edema, mildly progressed. No pneumothorax. Trace pleural effusions. Interval removal of the right IJ central venous catheter. Bones appear grossly in tact. IMPRESSION: 1. Cardiomegaly with mildly progressed pulmonary edema. 2. Trace pleural effusions. 3. Status post removal of the right IJ central venous catheter. ACT 112: Negative or not required by law. The above report was generated using voice recognition software. It may contain grammatical, syntax o r spelling errors. Electronically signed by: Morris Garcia M.D. 01/30/2023 6:59 AM
[2023-01-30] MEDS: FORMOTEROL 20 MCG/2 ML VIAL INH SCH ×2 (07:14→20:01)
[2023-01-30] MEDS: BUDESONIDE 0.25 MG/2 ML VIAL (PULMICORT) NEB SCH ×2 (07:19→20:01)
[2023-01-30] MEDS: MULTI VIT W/MINERALS LIQUID 15 ML UDP PO SCH (08:41)
[2023-01-30] MEDS: GABAPENTIN 100 MG CAP PO SCH ×2 (08:41→20:47)
[2023-01-30] MEDS: ATORVASTATIN 40 MG TAB PO SCH (08:41)
[2023-01-30] MEDS: MONTELUKAST SODIUM 10 MG TABLET PO SCH (08:41)
[2023-01-30] MEDS: levETIRAcetam 1,000 MG in 0.9 % SODIUM CHLORIDE 100 ML IV SCH ×2 (08:43→20:45)
[2023-01-30] MEDS: PANTOprazole 40 MG in SYRINGE 0 ML IV SCH (10:33)
[2023-01-30] MEDS: AMIODARONE 200 MG TAB PO SCH ×2 (11:43→17:06)
--- NOTE | 2023-01-30 11:44 | Cardiology Progress Note ---
Date of Service January 30, 2023 Assessment & Plan (1) Acute CVA (cerebrovascular accident): (2) Paroxysmal atrial fibrillation: (3) Tachycardia-bradycardia syndrome: (4) Symptomatic bradycardia: Plan Complex 67-year-old female presenting with cerebrovascular accident and Eliquis failure. Developed seizure-like activity early a.m. 01/25 requiring intubation with significant bradycardia on telemetry. Extubated 01/28/2023. Restart amiodarone. Nursing able to crush pills. Hold IV Lopressor. Heart rate within acceptable range without overt indication for pacemaker currently. Continue IV heparin. Transition to Eliquis if no further procedures are currently scheduled. Admission and Anticipated Discharge Date Admission Date: January 23, 2023 Subjective Patient seen examined the bedside. Improved neurologically today. Able to move her right upper extremity. Currently working with physical therapy. Cleared to swallow crushed pills. Sinus bradycardia down to the 40s recorded during sleep. IV Lopressor reduced to 2.5 mg every 6 hours. Remains aphasic. Review of Systems Review of Systems: Unobtainable due to mental health condition (Poststroke) Physical Exam Constitutional: well developed and well nourished; no acute distress Respiratory: no respiratory distress and no labored breathing Auscultation: no crackles, no rales, no rhonchi and no wheezes Cardiovascular: Rate/Rhythm: regular rate, regular rhythm and + bradycardic Heart Sounds: normal S1, normal S2 and + murmur (1/6 systolic ejection murmur heard at the base) Vessels: no JVD Extremities: no edema Gastrointestinal (Abdomen): Inspection/Auscultation: abdomen normal to inspection and normal bowel sounds; abdomen not distended Percussion/Palpation: abdomen nontender, no guarding and abdomen not rigid Neurologic: Right-sided weakness, neglect Results & Data Vital Signs (Past 12 Hours) Vital Signs Temp Pulse Pulse Resp BP BP BP 01/30/23 08:00 01/30/23 08:00 36.7 C 77 20 165/78 H 01/30/23 05:39 77 01/30/23 05:24 84 179/87 H 01/30/23 04:11 77 21 01/30/23 03:11 36.5 C 76 17 147/75 H 01/30/23 00:25 40 L 01/30/23 00:00 Pulse Ox O2 Del Method O2 Del Method O2 Flow Rate 01/30/23 08:00 Room Air 01/30/23 08:00 93 Room Air 01/30/23 05:39 01/30/23 05:24 01/30/23 04:11 96 2 01/30/23 03:11 98 BiPAP 01/30/23 00:25 01/30/23 00:00 BiPAP Laboratory Results Coagulation 01/30/23 Range/Units 05:34 APTT 46.7 H* (21.0-31.0) Seconds CBC 01/30/23 Range/Units 04:15 WBC 6.28 (4.8-10.8) K/ul RBC 3.47 L (4.20-5.40) M/uL Hgb 10.7 L (12.0-16.0) g/dl Hct 33.5 L (37.0-47.0) % Plt Count 262 (130-400) K/uL Neut # (Auto) 3.97 (1.40-6.50) K/uL Lymph # (Auto) 1.16 L (1.20-3.40) K/uL [place] # (Auto) 0.91 H (0.11-0.59) K/uL Eos # (Auto) 0.10 (0.00-0.50) K/uL Baso # (Auto) 0.01 (0.00-0.20) K/uL Comprehensive Metabolic Panel 01/29/23 01/30/23 Range/Units 15:40 04:15 Sodium 136 135 L (136-145) mmol/L Potassium 4.2 3.8 (3.5-5.1) mmol/L Chloride 98 99 (98-107) mmol/L Carbon Dioxide 30 30 (21-32) mmol/L BUN 15 16 (6-23) mg/dl Creatinine 0.70 0.73 (0.6-1.2) mg/dl Glucose 133 H 122 H (70-99(Fasting)) mg/dl Calcium 8.9 8.5 L (8.6-10.3) mg/dl Intake and Output 01/29/23 01/30/23 01/30/23 22:59 06:59 14:59 Intake Total 624.333 / 1541.833 315.000 / 1541.833 210 / 210 Output Total 350 / 1650 0 / 1650 Balance 274.333 / -108.167 315.000 / -108.167 210 / 210 Intake: IV 624.333 / 1541.833 315.000 / 1541.833 210 / 210 Ampicillin/Sulbactam Sod 3,000 200 / 400 100 / 400 100 / 100 mg In Sodium Chlor 0.9% Mini-B 100 ml @ 100 mls/hr IV Q6H LYLY Rx#:[id number] Heparin Sodium/Dextrose 25,000 314.333 / 529.333 215.000 / 529.333 units In 500 ml @ 1,000 UNITS/ HR 20 mls/hr IV .Q24H LYLY Rx#: [id number] levETIRAcetam 1,000 mg In 0.9 % 110 / 220 110 / 110 Sodium Chloride 100 ml @ 440 mls/hr IV BID LYLY Rx#:[id number] Oral 0 / 0 0 / 0 Output: Urine 0 / 0 0 / 0 Urine Amount (Catheter) 350 / 1650 La/Indwelling 350 / 1650 Other: Weight 103.8 kg Weight Measurement Method Built in [facility]
--- NOTE | 2023-01-30 15:19 | Hospitalist Progress Note ---
Date of Service January 30, 2023 Assessment & Plan (1) Acute CVA (cerebrovascular accident): Plan: 67 yo F with type 2 diabetes, hyperlipidemia, asthma- COPD overlap syndrome, obstructive sleep apnea, persistent atrial fibrillation, nonischemic cardiomyopathy, history of CVA, mitral regurgitation, atherosclerosis of coronary artery, morbid obesity, migraine without aura, depression with anxiety presents with strokelike symptoms. Acute CVA Dysarthria Initial workup with CT scan of head and CTA head and neck unremarkable MRI brain - IMPRESSION: 1. Scattered areas of small infarcts involving the insular region, left posterior centrum semiovale and left frontal and parietal cortex. 2. No intracranial hemorrhage. 3. Underlying microangiopathic white matter disease. Echo obtained Speech evaluation Neurology consulted - ok to stop plavix and do heparin bridge to coumadin Cardiology consulted - pt w/ pAfib, hx of CVAs on eliquis - plan to transition to coumadin w/ heparin bridge Stop Eliquis 01/25 Overnight pt had seizure-like episode, was intubated, started on pressors, currently pt is in ICU. Brain MRI repeated today FINDINGS: Increase in size in the acute to subacute left MCA territory infarct, primarily involving the left frontotemporal region. This infarct measures up to 4 cm in size. A orogastric tube is partially visualized. Fluid levels within the sphenoid sinuses and nasopharynx are noted. The mastoid air cells are clear. The major vascular flow-voids at the skull base are well-maintained. There is no mass, hematoma, midline shift. Mild atrophic changes again noted within the brain. There is an old right MCA territory infarct again noted. Vasogenic edema within the left MCA territory infarct has also progressed. IMPRESSION: Interval progression of the now moderate sized acute to subacute left MCA territory infarct as described above. No midline shift or intracranial hemorrhage identified at this time. Discussed w/ Dr. Patricia Campbell initially per ICU team - as pt in critical condition EEG ordered and pending 01/26 Pt remains intubated, she is awake, somewhat restless, opens eyes, moves extremities besides RUE 01/27 Pt remains intubated in critical condition. EEG obtained - No electrographic seizures or epileptiform discharges are seen. 01/28 Pt extubated this AM. Mental status improved. Moves extremities except RUE. 01/29 On suppl. O2. Remains aphasic. Can't take PO. Follows simple commands. 01/30 On suppl. O2. Mental status seems improved. Follows simple commands. Moves extremities except for RUE. Remains aphasic. Able to take po amiodarone crushed today. Bradycardia History of atrial fibrillation - cont. amiodarone and metoprolol succinate - discussed w/ cardiology echo obtained and reviewed Monitor on telemetry - in ICU required pressor support. Cardiology continues to follow closely - pt may need a pacemaker. - weaned off dopamine - cont. IV heparin - on iv metoprolol as not able to take PO - able to take po amiodarone today crushed (01/30) History of CVA Continue statin Hold Eliquis transition to coumadin, as above poss. Aspiration posit. blood cultx increased secretions noted, fever - cont. Unasyn and vancomycin for now - follow cultures Diabetes On Mounjaro Hold metformin Insulin sliding scale Follow blood sugars Current HbA1c level 6.1% History of asthma/COPD Continue home inhalers Hypertension - at home on metoprolol succinate, losartan - in ICU, required pressor support Closely cont. to monitor - metoprolol started iv around the clock as pt not able to take PO -01/30 pt was able to take amiodarone crushed Obstructive sleep apnea CPAP nightly now intubated Depression with anxiety On Wellbutrin and amitriptyline Hyperlipidemia On statin obtained lipid profile, LDL 105 DVT prophylaxis SCDs , heparin Disposition: Room 107 (PCU status) Full code Admission and Anticipated Discharge Date Admission Date: January 23, 2023 Subjective Pt seen in follow up of CVA, had seizure episode afterwards, was intubated, on pressors in ICU Pt is extubated on suppl. O2,remains in room 107- now PCU status. Discussed w/ family and RN at the bedside in detail. Pt following commands, awake. Moving extremities except R arm. Mental status seems improved. No signs of seizures. Aphasic, but was able to take crushed amiodarone today. Cardiology following. Daughter (Dr. Rossi Jorge) - is the only child and the next of kin. Also, [facility] reviewed - advance directive /living will paperwork was mailed to the pt in August, but was never returned. In the note it says patient verbalized that "her daughter Enid as her decision maker if unable to speak for herself". Review of Systems Review of Systems: Unobtainable due to cognitive status Physical Exam Physical Exam: General- elderly obese F, on suppl. O2 Head- atraumatic Eyes- pupils round small equal Lungs- +rhonchi Heart- regular rhythm; no murmur Abdomen- normal bowel sounds, soft, obese Extremities- trace pretibial edema, no erythema seen. Neuro- limited exam, awake and moving extremities except for R arm, opens eyes Skin- warm & dry Results & Data Results & Data Vital Signs (Past 12 Hours) Vital Signs Temp Pulse Pulse Resp BP BP Pulse Ox 01/30/23 12:00 65 20 162/79 H 97 01/30/23 08:00 01/30/23 08:00 36.7 C 77 20 165/78 H 93 01/30/23 05:39 77 01/30/23 05:24 84 179/87 H 01/30/23 04:11 77 21 96 O2 Del Method O2 Flow Rate 01/30/23 12:00 Nasal Cannula 1 01/30/23 08:00 Room Air 01/30/23 08:00 Room Air 01/30/23 05:39 01/30/23 05:24 01/30/23 04:11 2 Laboratory Results 01/30/23 01/30/23 01/30/23 Range/Units 11:41 05:34 04:15 WBC 6.28 (4.8-10.8) K/ul RBC 3.47 L (4.20-5.40) M/uL Hgb 10.7 L (12.0-16.0) g/dl Hct 33.5 L (37.0-47.0) % MCV 96.5 (80.0-100.0) fL MCH 30.8 (25.0-34.0) pg MCHC 31.9 L (32.0-36.0) g/dL RDW Std Deviation 48.3 H (36.4-46.3) fL RDW Coeff of Yeyo 13.5 (11.5-14.5) % Plt Count 262 (130-400) K/uL MPV 9.3 L (9.4-12.4) fL Immature Gran % (Auto) 2.1 % Neut % (Auto) 63.1 % Lymph % (Auto) 18.5 % Boyd % (Auto) 14.5 % Eos % (Auto) 1.6 % Baso % (Auto) 0.2 % Neut # (Auto) 3.97 (1.40-6.50) K/uL Lymph # (Auto) 1.16 L (1.20-3.40) K/uL [place] # (Auto) 0.91 H (0.11-0.59) K/uL Eos # (Auto) 0.10 (0.00-0.50) K/uL Baso # (Auto) 0.01 (0.00-0.20) K/uL Immature Gran # (Auto) 0.13 (0.01-0.20) K/uL APTT 46.7 H* (21.0-31.0) Seconds PTT Ratio 1.7 Sodium 135 L (136-145) mmol/L Potassium 3.8 (3.5-5.1) mmol/L Chloride 99 (98-107) mmol/L Carbon Dioxide 30 (21-32) mmol/L Anion Gap 6 (3-11) BUN 16 (6-23) mg/dl Creatinine 0.73 (0.6-1.2) mg/dl Est Cr Clr Drug Dosing 89.6 ml/min Est GFR ( Amer) 98.1 ml/min Est GFR (Non-Af Amer) 84.6 ml/min BUN/Creatinine Ratio 21.9 H (10-20) Glucose 122 H (70-99(Fasting)) mg/dl POC Glucose 152 H (70-99) mg/dl Calcium 8.5 L (8.6-10.3) mg/dl Phosphorus 4.1 (2.5-4.9) mg/dl Magnesium 2.0 (1.7-2.4) mg/dl TSH (0.300-4.500) uIu/ml TAYLOR Screen (NEGATIVE) Anti-Proteinase 3 (<1.0) AI Anti-Myeloperoxidase (<1.0) AI ANCA (Negative) Complement C3 (83-193) mg/dL Complement C4 (15-57) mg/dL Tot Complement (CH50) (31-60) U/mL 01/30/23 01/29/23 01/29/23 Range/Units 00:35 17:49 15:40 WBC (4.8-10.8) K/ul RBC (4.20-5.40) M/uL Hgb (12.0-16.0) g/dl Hct (37.0-47.0) % MCV (80.0-100.0) fL MCH (25.0-34.0) pg MCHC (32.0-36.0) g/dL RDW Std Deviation (36.4-46.3) fL RDW Coeff of Yeyo (11.5-14.5) % Plt Count (130-400) K/uL MPV (9.4-12.4) fL Immature Gran % (Auto) % Neut % (Auto) % Lymph % (Auto) % [place] % (Auto) % Eos % (Auto) % Baso % (Auto) % Neut # (Auto) (1.40-6.50) K/uL Lymph # (Auto) (1.20-3.40) K/uL [place] # (Auto) (0.11-0.59) K/uL Eos # (Auto) (0.00-0.50) K/uL Baso # (Auto) (0.00-0.20) K/uL Immature Gran # (Auto) (0.01-0.20) K/uL APTT (21.0-31.0) Seconds PTT Ratio Sodium 136 (136-145) mmol/L Potassium 4.2 (3.5-5.1) mmol/L Chloride 98 (98-107) mmol/L Carbon Dioxide 30 (21-32) mmol/L Anion Gap 8 (3-11) BUN 15 (6-23) mg/dl Creatinine 0.70 (0.6-1.2) mg/dl Est Cr Clr Drug Dosing 93.5 ml/min Est GFR ( Amer) 103.2 ml/min Est GFR (Non-Af Amer) 89.0 ml/min BUN/Creatinine Ratio 21.4 H (10-20) Glucose 133 H (70-99(Fasting)) mg/dl POC Glucose 114 H 110 H (70-99) mg/dl Calcium 8.9 (8.6-10.3) mg/dl Phosphorus 4.0 (2.5-4.9) mg/dl Magnesium 2.1 (1.7-2.4) mg/dl TSH 1.319 (0.300-4.500) uIu/ml TAYLOR Screen (NEGATIVE) Anti-Proteinase 3 (<1.0) AI Anti-Myeloperoxidase (<1.0) AI ANCA (Negative) Complement C3 (83-193) mg/dL Complement C4 (15-57) mg/dL Tot Complement (CH50) (31-60) U/mL 01/26/23 Range/Units 09:05 WBC (4.8-10.8) K/ul RBC (4.20-5.40) M/uL Hgb (12.0-16.0) g/dl Hct (37.0-47.0) % MCV (80.0-100.0) fL MCH (25.0-34.0) pg MCHC (32.0-36.0) g/dL RDW Std Deviation (36.4-46.3) fL RDW Coeff of Yeyo (11.5-14.5) % Plt Count (130-400) K/uL MPV (9.4-12.4) fL Immature Gran % (Auto) % Neut % (Auto) % Lymph % (Auto) % [place] % (Auto) % Eos % (Auto) % Baso % (Auto) % Neut # (Auto) (1.40-6.50) K/uL Lymph # (Auto) (1.20-3.40) K/uL [place] # (Auto) (0.11-0.59) K/uL Eos # (Auto) (0.00-0.50) K/uL Baso # (Auto) (0.00-0.20) K/uL Immature Gran # (Auto) (0.01-0.20) K/uL APTT (21.0-31.0) Seconds PTT Ratio Sodium (136-145) mmol/L Potassium (3.5-5.1) mmol/L Chloride (98-107) mmol/L Carbon Dioxide (21-32) mmol/L Anion Gap (3-11) BUN (6-23) mg/dl Creatinine (0.6-1.2) mg/dl Est Cr Clr Drug Dosing ml/min Est GFR ( Amer) ml/min Est GFR (Non-Af Amer) ml/min BUN/Creatinine Ratio (10-20) Glucose (70-99(Fasting)) mg/dl POC Glucose (70-99) mg/dl Calcium (8.6-10.3) mg/dl Phosphorus (2.5-4.9) mg/dl Magnesium (1.7-2.4) mg/dl TSH (0.300-4.500) uIu/ml TAYLOR Screen NEGATIVE (NEGATIVE) Anti-Proteinase 3 <1.0 (<1.0) AI Anti-Myeloperoxidase <1.0 (<1.0) AI ANCA Negative (Negative) Complement C3 135 (83-193) mg/dL Complement C4 40 (15-57) mg/dL Tot Complement (CH50) >60 H (31-60) U/mL Medications Administered Current Inpatient Medications Albuterol (Albut/Ipratrop 3mg/0.5mg Neb 3 Ml Vial) 3 ml NEB Q4R PRN; Protocol PRN Reason: Shortness Of Breath Or Wheezing Stop: 02/27/23 18:59 Last Admin: 01/28/23 15:48 Dose: 3 ml Amiodarone HCl (Amiodarone 200 Mg Tab) 200 mg PO BIDM LYLY Stop: 02/23/23 16:59 Last Admin: 01/30/23 11:43 Dose: 200 mg Atorvastatin Calcium (Atorvastatin 40 Mg Tab) 80 mg PO QAM LYLY Stop: 02/24/23 08:59 Last Admin: 01/30/23 08:41 Dose: Not Given Atropine Sulfate (Atropine Sulfate 0.1 Mg/Ml 10ml Syr) 1 mg IV Q3M PRN PRN Reason: symptomatic bradycardia Budesonide (Budesonide 0.25 Mg/2 Ml Vial (Pulmicort)) 0.25 mg NEB BIDR LYLY Stop: 02/27/23 18:59 Last Admin: 01/30/23 07:19 Dose: 0.25 mg Bupropion HCl (Bupropion Xl 300 Mg Tabcr) 300 mg PO DAILY LYLY Stop: 02/23/23 08:59 Last Admin: 01/28/23 07:43 Dose: Not Given Dextrose (Dextrose 50% 50 Ml Syringe) 25 - 50 ml IV UD PRN; Protocol PRN Reason: Hypoglycemia Protocol Stop: 02/23/23 00:12 Formoterol Fumarate (Formoterol 20 Mcg/2 Ml Vial) 20 mcg INH BIDR LYLY Stop: 02/27/23 18:59 Last Admin: 01/30/23 07:14 Dose: 20 mcg Gabapentin (Gabapentin 100 Mg Cap) 100 mg PO BID LYLY Stop: 02/23/23 08:59 Last Admin: 01/30/23 08:41 Dose: Not Given Glucagon (Glucagon For Inj 1 Mg Vial) 1 mg SQ UD PRN; Protocol PRN Reason: Hypoglycemia Protocol Stop: 02/23/23 00:12 Glucose (Glucose 10 Tab/Tube) 4 - 8 tab PO UD PRN; Protocol PRN Reason: Hypoglycemia Treatment Stop: 02/23/23 00:12 Glucose (Glucose 40% Gel 15 Gm Tube) 15 - 30 gm PO UD PRN; Protocol PRN Reason: Hypoglycemia Protocol Stop: 02/23/23 00:12 Heparin Sodium/Dextrose (Heparin Sodium/Dextrose) 25,000 units in 500 mls @ 20 mls/hr IV .Q24H LYLY; Protocol Stop: 02/24/23 02:44 Last Titration: 01/30/23 06:51 Dose: 1,000 units/hr, 20 mls/hr Ampicillin Sodium/Sulbactam Sodium 3,000 mg/ Sodium Chloride 100 mls @ 100 mls/hr IV Q6H LYLY Stop: 02/02/23 08:59 Last Infusion: 01/30/23 10:33 Dose: Infused Pantoprazole Sodium 40 mg/ (Syringe) 10 mls @ 5 mls/min IV DAILY@1100 LYLY; Protocol Stop: 02/26/23 11:59 Last Admin: 01/30/23 10:33 Dose: 5 mls/min Acetaminophen (Ofirmev) 1,000 mg in 100 mls @ 400 mls/hr IV Q8H PRN PRN Reason: Fever or headache Stop: 01/31/23 14:33 Last Infusion: 01/28/23 20:19 Dose: Infused Levetiracetam 1,000 mg/ Sodium (Chloride) 110 mls @ 440 mls/hr IV BID [facility] Stop: 02/27/23 20:59 Last Infusion: 01/30/23 10:34 Dose: Infused Insulin Aspart (Insulin Aspart Per Unit Charge) 0 units SC ACHS LYLY Stop: 03/01/23 11:44 Last Admin: 01/30/23 11:42 Dose: Not Given Lorazepam (Lorazepam 0.5 Mg Tab) 0.5 mg PO Q6H PRN PRN Reason: Anxiety Stop: 02/25/23 10:50 Losartan Potassium (Losartan Potassium 50 Mg Tab) 50 mg PO DAILY [facility] Stop: 02/23/23 08:59 Last Admin: 01/24/23 07:37 Dose: 50 mg Metoprolol Succinate (Metoprolol Succ 50mg Ext Rel Tab) 100 mg PO BID LYLY Stop: 02/23/23 20:59 Last Admin: 01/24/23 20:00 Dose: 100 mg Metoprolol Tartrate (Metoprolol Tartrate 1 Mg/Ml Vial) 2.5 mg IV Q6 LYLY Stop: 03/01/23 05:59 Last Admin: 01/30/23 05:24 Dose: 2.5 mg Miscellaneous (Carbohydrates For Hypoglycemia ) 15 - 30 gm PO UD PRN PRN Reason: Hypoglycemia Protocol Stop: 02/23/23 00:12 Miscellaneous Information (Pharmacist Discharge Med Rec Consult) 1 each N/A UD PRN PRN Reason: Consult Stop: 02/23/23 00:12 Montelukast Sodium (Montelukast Sodium 10 Mg Tablet) 10 mg PO DAILY [facility] Stop: 02/23/23 08:59 Last Admin: 01/30/23 08:41 Dose: Not Given Multivitamins/Minerals (Multi Vit W/Minerals Liquid 15 Ml Udp) 15 ml PO QAM LYLY Stop: 02/26/23 08:59 Last Admin: 01/30/23 08:41 Dose: Not Given Nitroglycerin (Nitroglycerin Sl 0.4 Mg/Tab Tab) 0.4 mg SL Q5M PRN PRN Reason: Chest Pain Stop: 02/23/23 00:12 Nortriptyline HCl (Nortriptyline Hcl 25 Mg Cap) 25 mg PO HS [facility] Stop: 02/23/23 20:59 Last Admin: 01/24/23 20:00 Dose: 25 mg Nutritional Formula (Peptamen Intense Vhp 1.0 August 1,000 Ml Bag) 1,000 ml OG .SeeProtocol [facility]; Protocol Stop: 02/25/23 11:14 Last Admin: 01/26/23 15:07 Dose: 1,000 ml Zinc Acetate/Diphenhydramine (Diphenhydramine 2%/Zinc 0.1% Cream 28.4gm Tube) 1 appln EXT BID PRN PRN Reason: Itching Stop: 02/23/23 05:55 Last Admin: 01/24/23 20:02 Dose: 1 appln
[2023-01-31] MEDS: AMPICILLIN/SULBACTAM SOD 3,000 MG in SODIUM CHLOR 0.9% MINI-B 100 ML IV SCH ×4 (03:34→20:45)
[2023-01-31] MEDS: HEPARIN SODIUM/DEXTROSE 25,000 UNITS/500 ML BAG IV SCH ×2 (03:48→08:26)
[2023-01-31 05:10] LABS: BUN Creatinine Ratio 17.8 (10-20); Calcium 8.9 mg/dl (8.6-10.3); Creatinine Clr Calc Pharmacy 89.5 ml/min; Est GFR (African American) 98.1 ml/min; Est GFR (Non-African American) 84.6 ml/min; Magnesium 1.9 mg/dl (1.7-2.4); Phosphorus 4.2 mg/dl (2.5-4.9); Potassium 3.6 mmol/L (3.5-5.1)
[2023-01-31 05:19] LABS: Partial Thromboplastin Ratio 1.3; Partial Thromboplastin Time 35.3 Seconds (21.0-31.0)
[2023-01-31] MEDS ORDERED: HEPARIN SOD (PORCINE) 1000 UNIT/ML IV ONE (05:45)
[2023-01-31] MEDS: FORMOTEROL 20 MCG/2 ML VIAL INH SCH ×2 (06:58→20:38)
[2023-01-31] MEDS: BUDESONIDE 0.25 MG/2 ML VIAL (PULMICORT) NEB SCH ×2 (06:58→20:39)
[2023-01-31] MEDS: INSULIN ASPART PER UNIT CHARGE SC SCH ×4 (08:20→20:13)
[2023-01-31] MEDS: levETIRAcetam 1,000 MG in 0.9 % SODIUM CHLORIDE 100 ML IV SCH ×2 (08:28→20:15)
--- NOTE | 2023-01-31 09:23 | Hospitalist Progress Note ---
Date of Service January 31, 2023 Assessment & Plan (1) Acute CVA (cerebrovascular accident): Plan: 67 yo F with type 2 diabetes, hyperlipidemia, asthma- COPD overlap syndrome, obstructive sleep apnea, persistent atrial fibrillation, nonischemic cardiomyopathy, history of CVA, mitral regurgitation, atherosclerosis of coronary artery, morbid obesity, migraine without aura, depression with anxiety presents with strokelike symptoms. Acute CVA Dysarthria Initial workup with CT scan of head and CTA head and neck unremarkable MRI brain - IMPRESSION: 1. Scattered areas of small infarcts involving the insular region, left posterior centrum semiovale and left frontal and parietal cortex. 2. No intracranial hemorrhage. 3. Underlying microangiopathic white matter disease. Echo obtained Speech evaluation Neurology consulted - ok to stop plavix and do heparin bridge to coumadin Cardiology consulted - pt w/ pAfib, hx of CVAs on eliquis - plan to transition to coumadin w/ heparin bridge Stop Eliquis 01/25 Overnight pt had seizure-like episode, was intubated, started on pressors,moved to ICU. Brain MRI repeated : IMPRESSION: Interval progression of the now moderate sized acute to subacute left MCA territory infarct as described above. No midline shift or intracranial hemorrhage identified at this time. Per Neurology, Ketabbyra fadi recommended wtih a hold on coumadin for 7 days until reassessment could be done with head CT given large size of stroke. EEG obtained - No electrographic seizures or epileptiform discharges are seen. 01/28 Pt extubated. Moves extremities except RUE. 01/29 On suppl. O2. Remains aphasic. Can't take PO. Follows simple commands. 01/30 On suppl. O2. Mental status seems improved. Follows simple commands. Moves extremities except for RUE. Remains aphasic. Able to take po amiodarone crushed today. Continues on atorvastatin and heparin drip. Not on antiplatelet therapy. Bradycardia-intermittent History of atrial fibrillation-stopped all metoprolol and HR has now improved. No immediate plans for pacer. Cont monitoring on telemetry Remains on amio and is in sinus rhythm cont heparin drip with plans to repeat Head CT prior to restarting AC poss. Aspiration posit. blood cultx with fever and increased secretions. increased secretions noted, fever Unasyn given x 7 days and Vanc started but then stopped. Appears improved with repeat blood cultures negative, however, will have ID weigh in given the persistent hyperthermia to ensure a longer course of abx is not needed. Diabetes-chronic, controlled. Hold home GLP-1 agonist and metformin. Cont insulin while admitted. History of asthma/COPD-chronic, stable. Continue home inhalers Hypertension-chronic, elevated today so restarted her losartan. Toprol XL was stopped. Goal BP 140/90 on avg at this point. Obstructive sleep apnea-chronic, stable. Cont CPAP nightly Depression with anxiety-restart home Wellbutrin and nortryptiline now that she is able to swallow to avoid withdrawal Hyperlipidemia-chronic, stable. Cont statin DVT prophylaxis SCDs , heparin Disposition: per PT/OT recs. Full code I spoke with her sisters who are at the bedside and assisted with the history. Pt remains with significant deficits and will require rehab, likely [facility]. I spent a total [id number] coordinating, documenting, and providing care for this patient excluding time spent in the performance of separately billed services Lilia Wolff DO [facility] Hospitalist Admission and Anticipated Discharge Date Admission Date: January 23, 2023 Subjective Pt seen in follow up of CVA, had seizure episode afterwards, was intubated, on p ressors in ICU Pt is extubated on suppl. O2,remains in room 107- now PCU status. Pt following commands somewhat. Awake but appears to be neglecting right side. Nonverbal and no meaningful nonverbal communication today. Moving extremities except R arm but starting to move the right arm more today. Mental status seems improved. No signs of seizures. Aphasic, able to eat and swallow. Physical Exam Physical Exam: CONSTITUTIONAL: obese, vitals as above, generally NAD EYES: PERRL, eyes deviated to the left, normal conjunctivae, no scleral icterus ENT: external ear and nose normal, oropharynx clear, MMM, some facial asymmetry noted. NECK: trachea midline RESPIRATORY: clear to auscultation bilaterally, no crackles, rales or wheezes, normal respiratory effort CARDIOVASCULAR: regular rate and rhythm, S1 and 2 heard without murmurs, gallops or rubs, no JVD, no peripheral edema CHEST: inspection of chest was normal GASTROINTESTINAL: soft, nontender, ND, no guarding MUSCULOSKELETAL: generalized weakness, focal deficit with right upper arm strength and right cmm operator strength. Not flacid but no meaningful movement. SKIN: warm and dry NEUROLOGIC: right side neglect, eyes deviated right, cannot cmm operator my fingers on the right hand but seems to do this on command with the left hand. Cold not elicit DTRs on knees 2/2 pt inability to cooperate with exam PSYCHIATRIC: nonverbal and cannot assess. Results & Data Results & Data Vital Signs (Past 12 Hours) Vital Signs Temp Pulse Pulse Resp BP BP Pulse Ox 01/31/23 07:20 67 01/31/23 06:59 73 16 97 01/31/23 03:40 36.6 C 18 167/75 H 95 01/31/23 00:00 76 01/31/23 00:00 01/30/23 23:24 36.4 C L 152/65 H 01/30/23 23:20 79 21 89 L 01/30/23 23:15 78 21 92 01/30/23 23:11 72 23 96 01/30/23 23:10 78 19 92 01/30/23 23:05 79 23 93 01/30/23 23:00 79 29 H 90 01/30/23 22:55 79 19 92 01/30/23 22:50 78 21 91 01/30/23 22:49 78 18 92 01/30/23 22:49 152/65 H 01/30/23 22:45 79 26 H 92 01/30/23 22:40 79 25 H 91 01/30/23 22:35 79 22 91 01/30/23 22:30 80 23 92 01/30/23 22:25 81 24 90 01/30/23 22:20 83 19 91 01/30/23 22:15 84 22 92 01/30/23 22:10 85 20 94 01/30/23 22:05 85 20 95 01/30/23 22:00 85 20 95 Pulse Ox O2 Del Method O2 Del Method O2 Flow Rate 01/31/23 07:20 01/31/23 06:59 Nasal Cannula 2 01/31/23 03:40 BiPAP 01/31/23 00:00 01/31/23 00:00 94 BiPAP 01/30/23 23:24 01/30/23 23:20 01/30/23 23:15 01/30/23 23:11 2 01/30/23 23:10 01/30/23 23:05 01/30/23 23:00 01/30/23 22:55 01/30/23 22:50 01/30/23 22:49 01/30/23 22:49 01/30/23 22:45 01/30/23 22:40 01/30/23 22:35 01/30/23 22:30 01/30/23 22:25 01/30/23 22:20 01/30/23 22:15 01/30/23 22:10 01/30/23 22:05 01/30/23 22:00 Laboratory Results [facility] 01/31/23 04:18 Sodium 137 Potassium 3.6 Chloride 98 Carbon Dioxide 30 BUN 13 Creatinine 0.73 Glucose 112 H Calcium 8.9 Medications Administered Current Inpatient Medications Albuterol (Albut/Ipratrop 3mg/0.5mg Neb 3 Ml Vial) 3 ml NEB Q4R PRN; Protocol PRN Reason: Shortness Of Breath Or Wheezing Stop: 02/27/23 18:59 Last Admin: 01/28/23 15:48 Dose: 3 ml Amiodarone HCl (Amiodarone 200 Mg Tab) 200 mg PO BIDM [facility] Stop: 02/23/23 16:59 Last Admin: 01/30/23 17:06 Dose: 200 mg Atorvastatin Calcium (Atorvastatin 40 Mg Tab) 80 mg PO QAM [facility] Stop: 02/24/23 08:59 Last Admin: 01/30/23 08:41 Dose: Not Given Atropine Sulfate (Atropine Sulfate 0.1 Mg/Ml 10ml Syr) 1 mg IV Q3M PRN PRN Reason: symptomatic bradycardia Budesonide (Budesonide 0.25 Mg/2 Ml Vial (Pulmicort)) 0.25 mg NEB BIDR [facility] Stop: 02/27/23 18:59 Last Admin: 01/31/23 06:58 Dose: 0.25 mg Bupropion HCl (Bupropion Xl 300 Mg Tabcr) 300 mg PO DAILY [facility] Stop: 02/23/23 08:59 Last Admin: 01/28/23 07:43 Dose: Not Given Dextrose (Dextrose 50% 50 Ml Syringe) 25 - 50 ml IV UD PRN; Protocol PRN Reason: Hypoglycemia Protocol Stop: 02/23/23 00:12 Formoterol Fumarate (Formoterol 20 Mcg/2 Ml Vial) 20 mcg INH BIDR [facility] Stop: 02/27/23 18:59 Last Admin: 01/31/23 06:58 Dose: 20 mcg Gabapentin (Gabapentin 100 Mg Cap) 100 mg PO BID [facility] Stop: 02/23/23 08:59 Last Admin: 01/30/23 20:47 Dose: 100 mg Glucagon (Glucagon For Inj 1 Mg Vial) 1 mg SQ UD PRN; Protocol PRN Reason: Hypoglycemia Protocol Stop: 02/23/23 00:12 Glucose (Glucose 10 Tab/Tube) 4 - 8 tab PO UD PRN; Protocol PRN Reason: Hypoglycemia Treatment Stop: 02/23/23 00:12 Glucose (Glucose 40% Gel 15 Gm Tube) 15 - 30 gm PO UD PRN; Protocol PRN Reason: Hypoglycemia Protocol Stop: 02/23/23 00:12 Heparin Sodium/Dextrose (Heparin Sodium/Dextrose) 25,000 units in 500 mls @ 23 mls/hr IV .[id number] [facility]; Protocol Stop: 02/24/23 02:44 Last Admin: 01/31/23 08:26 Dose: 1,150 units/hr, 23 mls/hr Ampicillin Sodium/Sulbactam Sodium 3,000 mg/ Sodium Chloride 100 mls @ 100 mls/hr IV Q6H [facility] Stop: 02/02/23 08:59 Last Admin: 01/31/23 08:27 Dose: 100 mls/hr Pantoprazole Sodium 40 mg/ (Syringe) 10 mls @ 5 mls/min IV DAILY@1100 [facility]; Protocol Stop: 02/26/23 11:59 Last Admin: 01/30/23 10:33 Dose: 5 mls/min Acetaminophen (Ofirmev) 1,000 mg in 100 mls @ 400 mls/hr IV Q8H PRN PRN Reason: Fever or headache Stop: 01/31/23 14:33 Last Infusion: 01/28/23 20:19 Dose: Infused Levetiracetam 1,000 mg/ Sodium (Chloride) 110 mls @ 440 mls/hr IV BID [facility] Stop: 02/27/23 20:59 Last Admin: 01/31/23 08:28 Dose: 440 mls/hr Insulin Aspart (Insulin Aspart Per Unit Charge) 0 units SC ACHS [facility] Stop: 03/01/23 11:44 Last Admin: 01/31/23 08:20 Dose: Not Given Lorazepam (Lorazepam 0.5 Mg Tab) 0.5 mg PO Q6H PRN PRN Reason: Anxiety Stop: 02/25/23 10:50 Losartan Potassium (Losartan Potassium 50 Mg Tab) 50 mg PO DAILY [facility] Stop: 02/23/23 08:59 Last Admin: 01/24/23 07:37 Dose: 50 mg Metoprolol Succinate (Metoprolol Succ 50mg Ext Rel Tab) 100 mg PO BID [facility] Stop: 02/23/23 20:59 Last Admin: 01/24/23 20:00 Dose: 100 mg Metoprolol Tartrate (Metoprolol Tartrate 1 Mg/Ml Vial) 2.5 mg IV Q6 [facility] Stop: 03/01/23 05:59 Last Admin: 01/30/23 05:24 Dose: 2.5 mg Miscellaneous (Carbohydrates For Hypoglycemia ) 15 - 30 gm PO UD PRN PRN Reason: Hypoglycemia Protocol Stop: 02/23/23 00:12 Miscellaneous Information (Pharmacist Discharge Med Rec Consult) 1 each N/A UD PRN PRN Reason: Consult Stop: 02/23/23 00:12 Montelukast Sodium (Montelukast Sodium 10 Mg Tablet) 10 mg PO DAILY [facility] Stop: 02/23/23 08:59 Last Admin: 01/30/23 08:41 Dose: Not Given Multivitamins/Minerals (Multi Vit W/Minerals Liquid 15 Ml Udp) 15 ml PO QAM [facility] Stop: 02/26/23 08:59 Last Admin: 01/30/23 08:41 Dose: Not Given Nitroglycerin (Nitroglycerin Sl 0.4 Mg/Tab Tab) 0.4 mg SL Q5M PRN PRN Reason: Chest Pain Stop: 02/23/23 00:12 Nortriptyline HCl (Nortriptyline Hcl 25 Mg Cap) 25 mg PO HS [facility] Stop: 02/23/23 20:59 Last Admin: 01/24/23 20:00 Dose: 25 mg Nutritional Formula (Peptamen Intense Vhp 1.0 August 1,000 Ml Bag) 1,000 ml OG .SeeProtocol [facility]; Protocol Stop: 02/25/23 11:14 Last Admin: 01/26/23 15:07 Dose: 1,000 ml Zinc Acetate/Diphenhydramine (Diphenhydramine 2%/Zinc 0.1% Cream 28.4gm Tube) 1 appln EXT BID PRN PRN Reason: Itching Stop: 02/23/23 05:55 Last Admin: 01/24/23 20:02 Dose: 1 appln
[2023-01-31] MEDS: ATORVASTATIN 40 MG TAB PO SCH (09:50)
[2023-01-31] MEDS: AMIODARONE 200 MG TAB PO SCH ×2 (09:50→15:37)
[2023-01-31] MEDS: GABAPENTIN 100 MG CAP PO SCH ×2 (09:51→20:16)
[2023-01-31] MEDS: MONTELUKAST SODIUM 10 MG TABLET PO SCH (09:51)
[2023-01-31] MEDS: MULTI VIT W/MINERALS LIQUID 15 ML UDP PO SCH (09:51)
--- NOTE | 2023-01-31 10:22 | Pharmacy Report ---
- Date of Service January 31, 2023 - Pharmacy CVA/TIA Medication Review Medications to Prevent Stroke handout has been added to the patients discharge packet. Antiplatelet(s) * Antiplatelet therapy deferred per neurology as stroke is embolic and small in size. Cholesterol * High intensity statin: atorvastatin 80 mg daily DVT Prophylaxis * On therapeutic anticoagulation Therapeutic Anticoagulation * Hx Afib/Aflutter noted, and patient is currently receiving therapeutic heparin infusion Type 2 Diabetes * Patient has T2DM and patient is prescribed GLP-1 agonist, Tirzepatide.
--- NOTE | 2023-01-31 10:30 | Cardiology Progress Note ---
Date of Service January 31, 2023 Assessment & Plan (1) Acute CVA (cerebrovascular accident): (2) Paroxysmal atrial fibrillation: (3) Tachycardia-bradycardia syndrome: (4) Symptomatic bradycardia: (5) HTN (hypertension): Plan Complex 67-year-old female presenting with cerebrovascular accident and Eliquis failure. Developed seizure-like activity early a.m. 01/25 requiring intubation with significant bradycardia on telemetry. Extubated 01/28/2023. Amiodarone restarted 01/30/2023. Nursing able to crush pills. Metoprolol on hold. Blood pressure elevated. Restart losartan 50 mg daily. Heart rate within acceptable range without overt indication for pacemaker currently. Continue IV heparin. Due to Eliquis failure, patient will be transition to warfarin. First dose today. Admission and Anticipated Discharge Date Admission Date: January 23, 2023 Subjective Patient seen examined the bedside. Remains aphasic however cooperative, awake and alert. Heart rate above 60 over the past 24 hours. Amiodarone restarted. Metoprolol remains on hold. Has not received losartan since 01/24. Review of Systems Review of Systems: Other (Aphasia) Physical Exam Constitutional: well developed and well nourished; no acute distress Respiratory: no respiratory distress and no labored breathing Auscultation: no crackles, no rales, no rhonchi and no wheezes Cardiovascular: Rate/Rhythm: regular rate, regular rhythm and + bradycardic Heart Sounds: normal S1, normal S2 and + murmur (1/6 systolic ejection murmur heard at the base) Vessels: no JVD Extremities: no edema Gastrointestinal (Abdomen): Inspection/Auscultation: abdomen normal to inspection and normal bowel sounds; abdomen not distended Percussion/Palpat ion: abdomen nontender, no guarding and abdomen not rigid Results & Data Vital Signs (Past 12 Hours) Vital Signs Temp Pulse Pulse Resp BP BP Pulse Ox 01/31/23 07:20 67 01/31/23 06:59 73 16 97 01/31/23 03:40 36.6 C 18 167/75 H 95 01/31/23 00:00 76 01/31/23 00:00 01/30/23 23:24 36.4 C L 152/65 H 01/30/23 23:20 79 21 89 L 01/30/23 23:15 78 21 92 01/30/23 23:11 72 23 96 01/30/23 23:10 78 19 92 01/30/23 23:05 79 23 93 01/30/23 23:00 79 29 H 90 01/30/23 22:55 79 19 92 01/30/23 22:50 78 21 91 01/30/23 22:49 78 18 92 01/30/23 22:49 152/65 H 01/30/23 22:45 79 26 H 92 01/30/23 22:40 79 25 H 91 01/30/23 22:35 79 22 91 01/30/23 22:30 80 23 92 01/30/23 22:25 81 24 90 Pulse Ox O2 Del Method O2 Del Method O2 Flow Rate 01/31/23 07:20 01/31/23 06:59 Nasal Cannula 2 01/31/23 03:40 BiPAP 01/31/23 00:00 01/31/23 00:00 94 BiPAP 01/30/23 23:24 01/30/23 23:20 01/30/23 23:15 01/30/23 23:11 2 01/30/23 23:10 01/30/23 23:05 01/30/23 23:00 01/30/23 22:55 01/30/23 22:50 01/30/23 22:49 01/30/23 22:49 01/30/23 22:45 01/30/23 22:40 01/30/23 22:35 01/30/23 22:30 01/30/23 22:25 Laboratory Results Coagulation 01/31/23 Range/Units 04:18 APTT 35.3 H (21.0-31.0) Seconds Comprehensive Metabolic Panel 01/31/23 Range/Units 04:18 Sodium 137 (136-145) mmol/L Potassium 3.6 (3.5-5.1) mmol/L Chloride 98 (98-107) mmol/L Carbon Dioxide 30 (21-32) mmol/L BUN 13 (6-23) mg/dl Creatinine 0.73 (0.6-1.2) mg/dl Glucose 112 H (70-99(Fasting)) mg/dl Calcium 8.9 (8.6-10.3) mg/dl Intake and Output 01/30/23 01/31/23 01/31/23 22:59 06:59 14:59 Intake Total 656 / 1190.667 324.667 / 1190.667 210 / 210 Output Total 1000 / 1500 500 / 1500 Balance -344 / -309.333 -175.333 / -309.333 210 / 210 Intake: IV 556 / 1090.667 324.667 / 1090.667 210 / 210 Ampicillin/Sulbactam Sod 3,000 200 / 400 100 / 400 100 / 100 mg In Sodium Chlor 0.9% Mini-B 100 ml @ 100 mls/hr IV Q6H [facility] Rx#:[id number] Heparin Sodium/Dextrose 25,000 246 / 470.667 224.667 / 470.667 units In 500 ml @ 1,150 UNITS/ HR 23 mls/hr IV .[id number] [facility] Rx #:[id number] levETIRAcetam 1,000 mg In 0.9 % 110 / 220 110 / 110 Sodium Chloride 100 ml @ 440 mls/hr IV BID [facility] Rx#:[id number] Oral 100 / 100 Output: Urine Amount (Catheter) 1000 / 1500 500 / 1500 La/Indwelling 1000 / 1500 500 / 1500 Other: Weight 103.3 kg Weight Measurement Method Built in [facility] (5) HTN (hypertension) Hypertension type: primary hypertension Qualified Code(s): I10 - Essential (primary) hypertension
[2023-01-31] MEDS: PANTOprazole 40 MG in SYRINGE 0 ML IV SCH (10:33)
[2023-01-31 12:40] LABS: Partial Thromboplastin Ratio 1.6
[2023-01-31 12:57] LABS: Partial Thromboplastin Time 44.9 Seconds (21.0-31.0)
[2023-01-31] MEDS ORDERED: LOSARTAN POTASSIUM 50 MG TAB PO ONE (14:54)
[2023-01-31] MEDS: WARFARIN SOD 5 MG TAB PO SCH (15:36)
[2023-02-01] MEDS: AMPICILLIN/SULBACTAM SOD 3,000 MG in SODIUM CHLOR 0.9% MINI-B 100 ML IV SCH ×4 (02:00→20:13)
[2023-02-01 05:06] LABS: BUN Creatinine Ratio 20.3 (10-20); Calcium 9.1 mg/dl (8.6-10.3); Est GFR (African American) 103.7 ml/min; Est GFR (Non-African American) 89.4 ml/min; Phosphorus 3.6 mg/dl (2.5-4.9); Potassium 3.7 mmol/L (3.5-5.1)
[2023-02-01 05:13] LABS: Partial Thromboplastin Ratio 1.3; Partial Thromboplastin Time 37.9 Seconds (21.0-31.0)
[2023-02-01] MEDS: HEPARIN SODIUM/DEXTROSE 25,000 UNITS/500 ML BAG IV SCH ×2 (06:12→06:15)
[2023-02-01] MEDS: GABAPENTIN 100 MG CAP PO SCH ×2 (08:03→20:13)
[2023-02-01] MEDS: levETIRAcetam 1,000 MG in 0.9 % SODIUM CHLORIDE 100 ML IV SCH ×2 (08:03→21:18)
[2023-02-01] MEDS: LOSARTAN POTASSIUM 50 MG TAB PO SCH (08:04)
[2023-02-01] MEDS: AMIODARONE 200 MG TAB PO SCH ×2 (08:04→15:46)
[2023-02-01] MEDS: INSULIN ASPART PER UNIT CHARGE SC SCH ×4 (08:04→20:12)
[2023-02-01] MEDS: ATORVASTATIN 40 MG TAB PO SCH (08:04)
[2023-02-01] MEDS: MONTELUKAST SODIUM 10 MG TABLET PO SCH (08:05)
[2023-02-01] MEDS: MULTI VIT W/MINERALS LIQUID 15 ML UDP PO SCH (08:05)
--- NOTE | 2023-02-01 08:56 | Hospitalist Progress Note ---
Date of Service February 01, 2023 Assessment & Plan (1) Acute CVA (cerebrovascular accident): Plan: 67 yo F with type 2 diabetes, hyperlipidemia, asthma- COPD overlap syndrome, obstructive sleep apnea, persistent atrial fibrillation, nonischemic cardiomyopathy, history of CVA, mitral regurgitation, atherosclerosis of coronary artery, morbid obesity, migraine without aura, depression with anxiety presents with strokelike symptoms. Acute CVA Dysarthria Initial workup with CT scan of head and CTA head and neck unremarkable MRI brain - IMPRESSION: 1. Scattered areas of small infarcts involving the insular region, left posterior centrum semiovale and left frontal and parietal cortex. 2. No intracranial hemorrhage. 3. Underlying microangiopathic white matter disease. Echo obtained Speech evaluation Neurology consulted - ok to stop plavix and do heparin bridge to coumadin Cardiology consulted - pt w/ pAfib, hx of CVAs on eliquis - plan to transition to coumadin w/ heparin bridge Stop Eliquis 01/25 Overnight pt had seizure-like episode, was intubated, started on pressors,moved to ICU. Brain MRI repeated : IMPRESSION: Interval progression of the now moderate sized acute to subacute left MCA territory infarct as described above. No midline shift or intracranial hemorrhage identified at this time. Per Neurology, Ketabbyra fadi recommended wtih a hold on coumadin for 7 days until reassessment could be done with head CT given large size of stroke. EEG obtained - No electrographic seizures or epileptiform discharges are seen. 01/28 Pt extubated. Moves extremities except RUE. 01/29 On suppl. O2. Remains aphasic. Can't take PO. Follows simple commands. 01/30 On suppl. O2. Mental status seems improved. Follows simple commands. Moves extremities except for RUE. Remains aphasic. Able to take po amiodarone crushed today. Continues on atorvastatin and heparin drip. Not on antiplatelet therapy. Bradycardia-intermittent--History of atrial fibrillation-stopped all metoprolol and HR has now improved. No immediate plans for pacer. Cont monitoring on telemetry Remains on amio and is in sinus rhythm cont heparin drip with coumadin bridge fever with bacteremia (likely contaminant) poss. Aspiration posit. blood cultx with fever and increased secretions. increased secretions noted, fever Unasyn given x 7 days and Vanc started but then stopped. Appears improved with repeat blood cultures negative and afebrile--clinically well, this SCHOOL SUPERINTENDENT in the blood was a likely contaminant. Diabetes-chronic, controlled. Hold home GLP-1 agonist and metformin. Cont insulin while admitted. History of asthma/COPD-chronic, stable. Continue home inhalers Hypertension-chronic, elevated today so restarted her losartan. Toprol XL was stopped. Goal BP 140/90 on avg at this point. Obstructive sleep apnea-chronic, stable. Cont CPAP nightly Depression with anxiety-restart home Wellbutrin and nortryptiline now that she is able to swallow to avoid withdrawal Hyperlipidemia-chronic, stable. Cont statin DVT prophylaxis SCDs , heparin Disposition: per PT/OT recs. Full code I spoke with her sisters who are at the bedside and assisted with the history--s poke with her daughter by phone, who is a physician locally. Pt remains with significant deficits and will require rehab, likely [facility]. I spent a total [id number] coordinating, documenting, and providing care for this patient excluding time spent in the performance of separately billed services Lilia Wolff DO [facility] Hospitalist Admission and Anticipated Discharge Date Admission Date: January 23, 2023 Subjective Pt seen in follow up of CVA, had seizure episode afterwards, was intubated, on pressors in ICU Pt is extubated on suppl. O2,remains in room 107- now PCU status. Pt following commands somewhat. Awake but appears to be neglecting right side. Nonverbal and no meaningful nonverbal communication today. Moving extremities except R arm but starting to move the right arm more today. Mental status seems improved. No signs of seizures. Aphasic, able to eat and swallow. No significant changes today. I updated daughter this morning with plan. Repeat head CT this morning reveals no evidence of intracranial hemorrhage with an increase in extent of the mod-sized subacute left MCA distribution infarct since head imaging on 01/25. Physical Exam Physical Exam: CONSTITUTIONAL: obese, vitals as above, generally NAD EYES: PERRL, eyes deviated to the left, normal conjunctivae, no scleral icterus ENT: external ear and nose normal, oropharynx clear, MMM, some facial asymmetry noted. NECK: trachea midline RESPIRATORY: clear to auscultation bilaterally, no crackles, rales or wheezes, normal respiratory effort CARDIOVASCULAR: regular rate and rhythm, S1 and 2 heard without murmurs, gallops or rubs, no JVD, no peripheral edema CHEST: inspection of chest was normal GASTROINTESTINAL: soft, nontender, ND, no guarding MUSCULOSKELETAL: generalized weakness, focal deficit with right upper arm strength and right board of education secretary strength. Not flacid but no meaningful movement. SKIN: warm and dry NEUROLOGIC: right side neglect, eyes deviated right, cannot board of education secretary my fingers on the right hand but seems to do this on command with the left hand. Cold not elicit DTRs on knees 2/2 pt inability to cooperate with exam PSYCHIATRIC: nonverbal and cannot assess. Results & Data Results & Data Vital Signs (Past 12 Hours) Vital Signs Temp Pulse Pulse Resp BP BP Pulse Ox 02/01/23 04:03 76 22 96 02/01/23 03:42 136/86 02/01/23 03:42 77 15 93 02/01/23 03:42 37.1 C 02/01/23 00:12 92 H 02/01/23 00:00 01/31/23 23:29 37 C 88 17 154/75 H 92 01/31/23 21:30 91 H 21 93 Pulse Ox O2 Del Method O2 Del Method O2 Flow Rate 02/01/23 04:03 2 02/01/23 03:42 02/01/23 03:42 02/01/23 03:42 02/01/23 00:12 02/01/23 00:00 90 BiPAP 01/31/23 23:29 BiPAP 1 01/31/23 21:30 2 Laboratory Results [facility] 02/01/23 04:11 Sodium 136 Potassium 3.7 Chloride 98 Carbon Dioxide 29 BUN 14 Creatinine 0.69 Glucose 114 H Calcium 9.1 Medications Administered Current Inpatient Medications Albuterol (Albut/Ipratrop 3mg/0.5mg Neb 3 Ml Vial) 3 ml NEB Q4R PRN; Protocol PRN Reason: Shortness Of Breath Or Wheezing Stop: 02/27/23 18:59 Last Admin: 01/28/23 15:48 Dose: 3 ml Amiodarone HCl (Amiodarone 200 Mg Tab) 200 mg PO BIDM [facility] Stop: 02/23/23 16:59 Last Admin: 02/01/23 08:04 Dose: 200 mg Atorvastatin Calcium (Atorvastatin 40 Mg Tab) 80 mg PO QAM [facility] Stop: 02/24/23 08:59 Last Admin: 02/01/23 08:04 Dose: 80 mg Atropine Sulfate (Atropine Sulfate 0.1 Mg/Ml 10ml Syr) 1 mg IV Q3M PRN PRN Reason: symptomatic bradycardia Budesonide (Budesonide 0.25 Mg/2 Ml Vial (Pulmicort)) 0.25 mg NEB BIDR [facility] Stop: 02/27/23 18:59 Last Admin: 01/31/23 20:39 Dose: 0.25 mg Bupropion HCl (Bupropion Xl 300 Mg Tabcr) 300 mg PO DAILY [facility] Stop: 02/23/23 08:59 Last Admin: 01/28/23 07:43 Dose: Not Given Dextrose (Dextrose 50% 50 Ml Syringe) 25 - 50 ml IV UD PRN; Protocol PRN Reason: Hypoglycemia Protocol Stop: 02/23/23 00:12 Formoterol Fumarate (Formoterol 20 Mcg/2 Ml Vial) 20 mcg INH BIDR [facility] Stop: 02/27/23 18:59 Last Admin: 01/31/23 20:38 Dose: 20 mcg Gabapentin (Gabapentin 100 Mg Cap) 100 mg PO BID [facility] Stop: 02/23/23 08:59 Last Admin: 02/01/23 08:03 Dose: 100 mg Glucagon (Glucagon For Inj 1 Mg Vial) 1 mg SQ UD PRN; Protocol PRN Reason: Hypoglycemia Protocol Stop: 02/23/23 00:12 Glucose (Glucose 10 Tab/Tube) 4 - 8 tab PO UD PRN; Protocol PRN Reason: Hypoglycemia Treatment Stop: 02/23/23 00:12 Glucose (Glucose 40% Gel 15 Gm Tube) 15 - 30 gm PO UD PRN; Protocol PRN Reason: Hypoglycemia Protocol Stop: 02/23/23 00:12 Heparin Sodium/Dextrose (Heparin Sodium/Dextrose) 25,000 units in 500 mls @ 25 mls/hr IV .Q20H [facility]; Protocol Stop: 02/24/23 02:44 Last Admin: 02/01/23 06:15 Dose: 1,250 units/hr, 25 mls/hr Ampicillin Sodium/Sulbactam Sodium 3,000 mg/ Sodium Chloride 100 mls @ 100 mls/hr IV Q6H [facility] Stop: 02/02/23 08:59 Last Admin: 02/01/23 08:03 Dose: 100 mls/hr Pantoprazole Sodium 40 mg/ (Syringe) 10 mls @ 5 mls/min IV DAILY@1100 [facility]; Protocol Stop: 02/26/23 11:59 Last Admin: 01/31/23 10:33 Dose: 5 mls/min Levetiracetam 1,000 mg/ Sodium (Chloride) 110 mls @ 440 mls/hr IV BID [facility] Stop: 02/27/23 20:59 Last Admin: 02/01/23 08:03 Dose: 440 mls/hr Insulin Aspart (Insulin Aspart Per Unit Charge) 0 units SC ACHS [facility] Stop: 03/01/23 11:44 Last Admin: 02/01/23 08:04 Dose: Not Given Lorazepam (Lorazepam 0.5 Mg Tab) 0.5 mg PO Q6H PRN PRN Reason: Anxiety Stop: 02/25/23 10:50 Losartan Potassium (Losartan Potassium 50 Mg Tab) 50 mg PO DAILY [facility] Stop: 02/23/23 08:59 Last Admin: 02/01/23 08:04 Dose: 50 mg Metoprolol Succinate (Metoprolol Succ 50mg Ext Rel Tab) 100 mg PO BID [facility] Stop: 02/23/23 20:59 Last Admin: 01/24/23 20:00 Dose: 100 mg Metoprolol Tartrate (Metoprolol Tartrate 1 Mg/Ml Vial) 2.5 mg IV Q6 [facility] Stop: 03/01/23 05:59 Last Admin: 01/30/23 05:24 Dose: 2.5 mg Miscellaneous (Carbohydrates For Hypoglycemia ) 15 - 30 gm PO UD PRN PRN Reason: Hypoglycemia Protocol Stop: 02/23/23 00:12 Montelukast Sodium (Montelukast Sodium 10 Mg Tablet) 10 mg PO DAILY [facility] Stop: 02/23/23 08:59 Last Admin: 02/01/23 08:05 Dose: 10 mg Multivitamins/Minerals (Multi Vit W/Minerals Liquid 15 Ml Udp) 15 ml PO QAM [facility] Stop: 02/26/23 08:59 Last Admin: 02/01/23 08:05 Dose: 15 ml Nitroglycerin (Nitroglycerin Sl 0.4 Mg/Tab Tab) 0.4 mg SL Q5M PRN PRN Reason: Chest Pain Stop: 02/23/23 00:12 Nortriptyline HCl (Nortriptyline Hcl 25 Mg Cap) 25 mg PO HS [facility] Stop: 02/23/23 20:59 Last Admin: 01/24/23 20:00 Dose: 25 mg Nutritional Formula (Peptamen Intense Vhp 1.0 August 1,000 Ml Bag) 1,000 ml OG .SeeProtocol [facility]; Protocol Stop: 02/25/23 11:14 Last Admin: 01/26/23 15:07 Dose: 1,000 ml Warfarin Sodium (Warfarin Sod 5 Mg Tab) 5 mg PO DAILY@1600 [facility] Stop: 03/02/23 15:59 Last Admin: 01/31/23 15:36 Dose: 5 mg Zinc Acetate/Diphenhydramine (Diphenhydramine 2%/Zinc 0.1% Cream 28.4gm Tube) 1 appln EXT BID PRN PRN Reason: Itching Stop: 02/23/23 05:55 Last Admin: 01/24/23 20:02 Dose: 1 appln
--- NOTE | 2023-02-01 09:57 | CT Scan Report ---
CT OF THE HEAD WITHOUT CONTRAST CLINICAL HISTORY: Reevaluate stroke area prior to starting anticoagulation. COMPARISON STUDY: Head CT and MRI of the brain January 25, 2023. CT DOSE: 969.22 mGy.cm TECHNIQUE: Helical axial images of the head were obtained without IV contrast. Automated exposure con trol was utilized for the study. A dose lowering technique was utilized adhering to the principles o f ALARA. FINDINGS: No acute intracranial hemorrhage is present. Ventricular system is unremarkable. Basal cist erns are patent. Old posterior right frontal lobe infarct is noted. Hypodensity with loss of rock-whi te differentiation within the left MCA distribution has increased in extent since head CT and MRI of January 23, 2023. This represents a subacute infarct. There is no significant mass effect. There are no calvarial fractures. Basal cisterns are patent. There are no extra axial collections. IMPRESSION: 1. No acute intracranial hemorrhage. 2. Increase in extent of the moderate-sized subacute left MCA distribution infarct since head CT and MRI of January 25, 2023. No significant mass effect. ACT 112: Negative or not required by law. Electronically signed by: Pelon Osuna M.D. 02/01/2023 9:55 AM
[2023-02-01] MEDS: BUDESONIDE 0.25 MG/2 ML VIAL (PULMICORT) NEB SCH ×2 (10:14→20:07)
[2023-02-01] MEDS: FORMOTEROL 20 MCG/2 ML VIAL INH SCH ×2 (10:14→20:07)
[2023-02-01] MEDS: PANTOprazole 40 MG in SYRINGE 0 ML IV SCH (12:24)
[2023-02-01 13:19] LABS: Partial Thromboplastin Ratio 1.6
--- NOTE | 2023-02-01 13:30 | Cardiology Progress Note ---
Date of Service February 01, 2023 Assessment & Plan (1) Acute CVA (cerebrovascular accident): (2) Paroxysmal atrial fibrillation: (3) Tachycardia-bradycardia syndrome: (4) Symptomatic bradycardia: (5) HTN (hypertension): Plan Complex 67-year-old female presenting with cerebrovascular accident and Eliquis failure. Developed seizure-like activity early a.m. 01/25 requiring intubation with significant bradycardia on telemetry. Extubated 01/28/2023. Restart amiodarone. Nursing able to crush pills. Hold IV Lopressor. Heart rate within acceptable range without overt indication for pacemaker currently. Continue IV heparin. Transition to warfarin if no further procedures are currently scheduled. 02/01/2023 Assessment and plan as above Continue amiodarone 200 mg twice per day to be continued on discharge Anticoagulation with heparin bridge to warfarin Contact with any additional questions Admission and Anticipated Discharge Date Admission Date: January 23, 2023 Subjective Patient seen and examined, chart, telemetry reviewed Atrial arrhythmias controlled Patient on appropriate medical No change hemodynamically or neurologically Physical Exam Constitutional: WD/WN, vitals as above well developed, well nourished and + ill appearing; no acute distress Neck: normal visual inspection and trachea midline Respiratory: normal respiratory effort, lungs clear to auscultation no respiratory distress and no labored breathing Auscultation: + diminished lung sounds; no crackles, no rales, no rhonchi and no wheezes Cardiovascular: Rate/Rhythm: regular rate, regular rhythm and + bradycardic Heart Sounds: normal S1, normal S2 and + murmur (1/6 systolic ejection murmur heard at the base) Vessels: no JVD Extremities: no edema Gastrointestinal (Abdomen): normal bowel sounds, soft, nontender, no hepatosplenomegaly Inspection/Auscultation: abdomen normal to inspection and normal bowel sounds; abdomen not distended Percussion/Palpation: abdomen nontender, no guarding and abdomen not rigid Skin: no rashes, warm and dry Neurologic: Speech / Cognition: + expressive aphasia Psychiatric: Orientation: alert and oriented x 3 Results & Data Vital Signs (Past 12 Hours) Vital Signs Temp Pulse Pulse Resp BP Pulse Ox O2 Del Method 02/01/23 12:00 148/78 H 02/01/23 12:00 78 97 02/01/23 10:16 78 22 94 Room Air 02/01/23 10:00 160/88 H 02/01/23 10:00 79 90 02/01/23 09:44 154/86 H 02/01/23 09:44 80 23 90 02/01/23 09:00 Room Air 02/01/23 08:00 157/74 H 02/01/23 08:00 79 20 90 02/01/23 08:00 74 02/01/23 07:00 73 22 92 02/01/23 04:03 76 22 96 02/01/23 03:42 136/86 02/01/23 03:42 77 15 93 02/01/23 03:42 37.1 C O2 Flow Rate FiO2 02/01/23 12:00 02/01/23 12:00 02/01/23 10:16 21 02/01/23 10:00 02/01/23 10:00 02/01/23 09:44 02/01/23 09:44 02/01/23 09:00 2 02/01/23 08:00 02/01/23 08:00 02/01/23 08:00 02/01/23 07:00 02/01/23 04:03 2 02/01/23 03:42 02/01/23 03:42 02/01/23 03:42 (5) HTN (hypertension) Hypertension type: primary hypertension Qualified Code(s): I10 - Essential (primary) hypertension
[2023-02-01] MEDS: WARFARIN SOD 5 MG TAB PO SCH (15:38)
[2023-02-02] MEDS: AMPICILLIN/SULBACTAM SOD 3,000 MG in SODIUM CHLOR 0.9% MINI-B 100 ML IV SCH (02:33)
[2023-02-02] MEDS: HEPARIN SODIUM/DEXTROSE 25,000 UNITS/500 ML BAG IV SCH (03:29)
[2023-02-02 06:14] LABS: BUN Creatinine Ratio 19.2 (10-20); Calcium 8.7 mg/dl (8.6-10.3); Creatinine Clr Calc Pharmacy 91.1 ml/min; Est GFR (African American) 98.1 ml/min; Est GFR (Non-African American) 84.6 ml/min; Magnesium 1.8 mg/dl (1.7-2.4); Potassium 3.5 mmol/L (3.5-5.1)
[2023-02-02 06:47] LABS: INR 1.2 (0.9-1.1); Partial Thromboplastin Ratio 1.8; Prothrombin Time 13.5 Seconds (9.0-12.0)
[2023-02-02 06:50] LABS: Partial Thromboplastin Time 50.6 Seconds (21.0-31.0)
[2023-02-02] MEDS: BUDESONIDE 0.25 MG/2 ML VIAL (PULMICORT) NEB SCH ×2 (07:26→17:48)
[2023-02-02] MEDS: FORMOTEROL 20 MCG/2 ML VIAL INH SCH ×2 (07:26→17:48)
[2023-02-02] MEDS: INSULIN ASPART PER UNIT CHARGE SC SCH ×4 (08:38→20:38)
[2023-02-02] MEDS: GABAPENTIN 100 MG CAP PO SCH ×2 (08:54→20:06)
[2023-02-02] MEDS: LOSARTAN POTASSIUM 50 MG TAB PO SCH (08:54)
[2023-02-02] MEDS: ATORVASTATIN 40 MG TAB PO SCH (08:54)
[2023-02-02] MEDS: levETIRAcetam 1,000 MG in 0.9 % SODIUM CHLORIDE 100 ML IV SCH ×2 (08:54→20:06)
[2023-02-02] MEDS: AMIODARONE 200 MG TAB PO SCH (08:54)
[2023-02-02] MEDS: MULTI VIT W/MINERALS LIQUID 15 ML UDP PO SCH (08:54)
[2023-02-02] MEDS: MONTELUKAST SODIUM 10 MG TABLET PO SCH (08:54)
--- NOTE | 2023-02-02 09:06 | Hospitalist Progress Note ---
Date of Service February 02, 2023 Assessment & Plan (1) Acute CVA (cerebrovascular accident): Plan: 67 yo F with type 2 diabetes, hyperlipidemia, asthma- COPD overlap syndrome, obstructive sleep apnea, persistent atrial fibrillation, nonischemic cardiomyopathy, history of CVA, mitral regurgitation, atherosclerosis of coronary artery, morbid obesity, migraine without aura, depression with anxiety presents with strokelike symptoms. Acute CVA Dysarthria Initial workup with CT scan of head and CTA head and neck unremarkable MRI brain - IMPRESSION: 1. Scattered areas of small infarcts involving the insular region, left posterior centrum semiovale and left frontal and parietal cortex. 2. No intracranial hemorrhage. 3. Underlying microangiopathic white matter disease. Echo obtained Speech evaluation Neurology consulted - ok to stop plavix and do heparin bridge to coumadin Cardiology consulted - pt w/ pAfib, hx of CVAs on eliquis - plan to transition to coumadin w/ heparin bridge, daily INR while on both. 01/25 Overnight pt had seizure-like episode, was intubated, started on pressors,moved to ICU. Brain MRI repeated : IMPRESSION: Interval progression of the now moderate sized acute to subacute left MCA territory infarct as described above. No midline shift or intracranial hemorrhage identified at this time. Per Neurology, Renita aponte recommended wtih a hold on coumadin for 7 days until reassessment could be done with head CT given large size of stroke. EEG obtained - No electrographic seizures or epileptiform discharges are seen. Transitioned to ICU and intubated. 01/28 Pt extubated. Moves extremities except RUE. 01/29 On suppl. O2. Remains aphasic. Can't take PO. Follows simple commands. 01/30 On suppl. O2. Mental status seems improved. Follows simple commands. Moves extremities except for RUE. Remains aphasic. Able to take po amiodarone crushed today. Continues on atorvastatin and heparin drip. Not on antiplatelet therapy as source of stroke is likley embolic. Bradycardia-intermittent--History of atrial fibrillation-stopped all metoprolol and HR has now improved. No immediate plans for pacer. Cont monitoring on telemetry Remains on amio and is in sinus rhythm-HR is 86bpm. cont heparin drip with coumadin bridge fever with bacteremia (likely contaminant)- *resolved. poss. Aspiration posit. blood cultx with fever and increased secretions. increased secretions noted, fever Unasyn given x 7 days and Vanc started but then stopped. -->completed abx Appears improved with repeat blood cultures negative and afebrile--clinically well, this EDUCATIONAL PSYCHOLOGIST in the blood was a likely contaminant. Diabetes-chronic, controlled. Hold home GLP-1 agonist and metformin. Cont insulin while admitted. History of asthma/COPD-chronic, stable. Continue home inhalers Hypertension-chronic, elevated today so restarted her losartan. Toprol XL was stopped. Goal BP 140/90 on avg at this point. Obstructive sleep apnea-chronic, stable. Cont CPAP nightly Depression with anxiety-restart home Wellbutrin and nortriptyline now that she is able to swallow to avoid withdrawal Hyperlipidemia-chronic, stable. Cont statin DVT prophylaxis SCDs , heparin Disposition: to rehab Full code Lilia Wolff DO [facility] Hospitalist Admission and Anticipated Discharge Date Admission Date: January 23, 2023 Subjective Pt seen in follow up of CVA, had seizure episode afterwards, was intubated, on pressors in ICU Pt is extubated on suppl. O2,remains in room 107- now PCU status. Pt following commands somewhat. Awake but appears to be neglecting right side. Nonverbal and no meaningful nonverbal communication today. Moving extremities except R arm but starting to move the right arm more today. Mental status seems improved. No signs of seizures. Aphasic, able to eat and swallow. No significant changes today. Appears to be moving her right hand around more. Physical Exam Physical Exam: CONSTITUTIONAL: obese, vitals as above, generally NAD EYES: PERRL, eyes deviated to the left, normal conjunctivae, no scleral icterus ENT: external ear and nose normal, oropharynx clear, MMM, some facial asymmetry noted. NECK: trachea midline RESPIRATORY: clear to auscultation bilaterally, no crackles, rales or wheezes, normal respiratory effort CARDIOVASCULAR: regular rate and rhythm, S1 and 2 heard without murmurs, gallops or rubs, no JVD, no peripheral edema CHEST: inspection of chest was normal GASTROINTESTINAL: soft, nontender, ND, no guarding MUSCULOSKELETAL: generalized weakness, focal deficit with right upper arm strength and right metal riveter strength. Not flacid but no meaningful movement. SKIN: warm and dry NEUROLOGIC: right side neglect, eyes deviated right, cannot metal riveter my fingers on the right hand but seems to do this on command with the left hand. Cold not elicit DTRs on knees 2/2 pt inability to cooperate with exam PSYCHIATRIC: nonverbal and cannot assess. Results & Data Results & Data Vital Signs (Past 12 Hours) Vital Signs Temp Pulse Pulse Resp BP BP BP 02/02/23 08:06 18 145/76 H 02/02/23 07:39 36.7 C 63 18 183/82 H 02/02/23 07:29 66 18 02/02/23 04:00 75 20 02/02/23 03:20 37 C 71 18 144/77 H 02/02/23 00:14 71 02/02/23 00:00 02/01/23 23:23 02/01/23 22:25 36.9 C 58 L 18 106/74 02/01/23 22:20 68 19 Pulse Ox O2 Del Method O2 Del Method O2 Flow Rate O2 Flow Rate 02/02/23 08:06 02/02/23 07:39 100 Room Air 02/02/23 07:29 98 Nasal Cannula 2 02/02/23 04:00 98 2 02/02/23 03:20 99 CPAP 02/02/23 00:14 02/02/23 00:00 Nasal Cannula 2 02/01/23 23:23 CPAP 2 02/01/23 22:25 93 CPAP 02/01/23 22:20 98 2 Laboratory Results [facility] 02/02/23 05:01 Sodium 137 Potassium 3.5 Chloride 99 Carbon Dioxide 29 BUN 14 Creatinine 0.73 Glucose 106 H Calcium 8.7 Medications Administered Current Inpatient Medications Albuterol (Albut/Ipratrop 3mg/0.5mg Neb 3 Ml Vial) 3 ml NEB Q4R PRN; Protocol PRN Reason: Shortness Of Breath Or Wheezing Stop: 02/27/23 18:59 Last Admin: 01/28/23 15:48 Dose: 3 ml Amiodarone HCl (Amiodarone 200 Mg Tab) 200 mg PO BIDM [facility] Stop: 02/23/23 16:59 Last Admin: 02/02/23 08:54 Dose: 200 mg Atorvastatin Calcium (Atorvastatin 40 Mg Tab) 80 mg PO QAM [facility] Stop: 02/24/23 08:59 Last Admin: 02/02/23 08:54 Dose: 80 mg Atropine Sulfate (Atropine Sulfate 0.1 Mg/Ml 10ml Syr) 1 mg IV Q3M PRN PRN Reason: symptomatic bradycardia Budesonide (Budesonide 0.25 Mg/2 Ml Vial (Pulmicort)) 0.25 mg NEB BIDR [facility] Stop: 02/27/23 18:59 Last Admin: 02/02/23 07:26 Dose: 0.25 mg Bupropion HCl (Bupropion Xl 150 Mg Tabcr) 150 mg PO DAILY [facility] Stop: 03/05/23 08:59 Dextrose (Dextrose 50% 50 Ml Syringe) 25 - 50 ml IV UD PRN; Protocol PRN Reason: Hypoglycemia Protocol Stop: 02/23/23 00:12 Formoterol Fumarate (Formoterol 20 Mcg/2 Ml Vial) 20 mcg INH BIDR [facility] Stop: 02/27/23 18:59 Last Admin: 02/02/23 07:26 Dose: 20 mcg Gabapentin (Gabapentin 100 Mg Cap) 100 mg PO BID [facility] Stop: 02/23/23 08:59 Last Admin: 02/02/23 08:54 Dose: 100 mg Glucagon (Glucagon For Inj 1 Mg Vial) 1 mg SQ UD PRN; Protocol PRN Reason: Hypoglycemia Protocol Stop: 02/23/23 00:12 Glucose (Glucose 10 Tab/Tube) 4 - 8 tab PO UD PRN; Protocol PRN Reason: Hypoglycemia Treatment Stop: 02/23/23 00:12 Glucose (Glucose 40% Gel 15 Gm Tube) 15 - 30 gm PO UD PRN; Protocol PRN Reason: Hypoglycemia Protocol Stop: 02/23/23 00:12 Heparin Sodium/Dextrose (Heparin Sodium/Dextrose) 25,000 units in 500 mls @ 25 mls/hr IV .Q20H [facility]; Protocol Stop: 02/24/23 02:44 Last Admin: 02/02/23 03:29 Dose: 1,250 units/hr, 25 mls/hr Pantoprazole Sodium 40 mg/ (Syringe) 10 mls @ 5 mls/min IV DAILY@1100 [facility]; Protocol Stop: 02/26/23 11:59 Last Admin: 02/01/23 12:24 Dose: 5 mls/min Levetiracetam 1,000 mg/ Sodium (Chloride) 110 mls @ 440 mls/hr IV BID [facility] Stop: 02/27/23 20:59 Last Admin: 02/02/23 08:54 Dose: 440 mls/hr Insulin Aspart (Insulin Aspart Per Unit Charge) 0 units SC ACHS [facility] Stop: 03/01/23 11:44 Last Admin: 02/02/23 08:38 Dose: Not Given Lorazepam (Lorazepam 0.5 Mg Tab) 0.5 mg PO Q6H PRN PRN Reason: Anxiety Stop: 02/25/23 10:50 Losartan Potassium (Losartan Potassium 50 Mg Tab) 50 mg PO DAILY [facility] Stop: 02/23/23 08:59 Last Admin: 02/02/23 08:54 Dose: 50 mg Metoprolol Succinate (Metoprolol Succ 50mg Ext Rel Tab) 100 mg PO BID [facility] Stop: 02/23/23 20:59 Last Admin: 01/24/23 20:00 Dose: 100 mg Metoprolol Tartrate (Metoprolol Tartrate 1 Mg/Ml Vial) 2.5 mg IV Q6 [facility] Stop: 03/01/23 05:59 Last Admin: 01/30/23 05:24 Dose: 2.5 mg Miscellaneous (Carbohydrates For Hypoglycemia ) 15 - 30 gm PO UD PRN PRN Reason: Hypoglycemia Protocol Stop: 02/23/23 00:12 Montelukast Sodium (Montelukast Sodium 10 Mg Tablet) 10 mg PO DAILY [facility] Stop: 02/23/23 08:59 Last Admin: 02/02/23 08:54 Dose: 10 mg Multivitamins/Minerals (Multi Vit W/Minerals Liquid 15 Ml Udp) 15 ml PO QAM [facility] Stop: 02/26/23 08:59 Last Admin: 02/02/23 08:54 Dose: 15 ml Nitroglycerin (Nitroglycerin Sl 0.4 Mg/Tab Tab) 0.4 mg SL Q5M PRN PRN Reason: Chest Pain Stop: 02/23/23 00:12 Nortriptyline HCl (Nortriptyline Hcl 25 Mg Cap) 25 mg PO HS [facility] Stop: 02/23/23 20:59 Last Admin: 01/24/23 20:00 Dose: 25 mg Warfarin Sodium (Warfarin Sod 5 Mg Tab) 5 mg PO DAILY@1600 [facility] Stop: 03/02/23 15:59 Last Admin: 02/01/23 15:38 Dose: 5 mg Zinc Acetate/Diphenhydramine (Diphenhydramine 2%/Zinc 0.1% Cream 28.4gm Tube) 1 appln EXT BID PRN PRN Reason: Itching Stop: 02/23/23 05:55 Last Admin: 01/24/23 20:02 Dose: 1 appln
[2023-02-02] MEDS: PANTOprazole 40 MG in SYRINGE 0 ML IV SCH (10:07)
--- NOTE | 2023-02-02 14:15 | Communication Note ---
Date of Service: February 02, 2023 Chart reviewed patient briefly Patient telemetry reviewed. Transient bradycardia last evening otherwise no further atrial arrhythmia We will reduce amiodarone to 200 mg daily
[2023-02-02] MEDS: WARFARIN SOD 5 MG TAB PO SCH (15:24)
[2023-02-02] MEDS: NORTRIPTYLINE HCL 25 MG CAP PO SCH (20:06)
[2023-02-03] MEDS: HEPARIN SODIUM/DEXTROSE 25,000 UNITS/500 ML BAG IV SCH ×2 (01:00→21:36)
[2023-02-03 04:17] LABS: Hematocrit (blood only) 34.1 % (37.0-47.0); Hemoglobin 11.2 g/dl (12.0-16.0); Mean Corpuscular Hemoglobin 30.9 pg (25.0-34.0); Mean Corpuscular Hgb Conc 32.8 g/dL (32.0-36.0); Mean Corpuscular Volume 94.2 fL (80.0-100.0); Mean Platelet Volume 9.9 fL (9.4-12.4); Platelet Count 303 K/uL (130-400); RDW Coefficient of Variation 13.4 % (11.5-14.5); RDW Standard Deviation 46.3 fL (36.4-46.3); Red Blood Count 3.62 M/uL (4.20-5.40); White Blood Count 8.55 K/ul (4.8-10.8)
[2023-02-03 04:34] LABS: BUN Creatinine Ratio 19.4 (10-20); Calcium 9.3 mg/dl (8.6-10.3); Creatinine Clr Calc Pharmacy 92.3 ml/min; Est GFR (African American) 99.7 ml/min; Est GFR (Non-African American) 86.1 ml/min; Magnesium 1.8 mg/dl (1.7-2.4); Phosphorus 4.4 mg/dl (2.5-4.9); Potassium 3.6 mmol/L (3.5-5.1)
[2023-02-03 04:47] LABS: INR 1.5 (0.9-1.1); Prothrombin Time 15.8 Seconds (9.0-12.0)
[2023-02-03 05:25] LABS: Partial Thromboplastin Time 57.2 Seconds (21.0-31.0)
[2023-02-03] MEDS: FORMOTEROL 20 MCG/2 ML VIAL INH SCH ×2 (07:35→19:42)
[2023-02-03] MEDS: BUDESONIDE 0.25 MG/2 ML VIAL (PULMICORT) NEB SCH (07:35)
[2023-02-03] MEDS: INSULIN ASPART PER UNIT CHARGE SC SCH ×4 (08:10→20:19)
[2023-02-03] MEDS: MULTI VIT W/MINERALS LIQUID 15 ML UDP PO SCH (08:20)
[2023-02-03] MEDS: LOSARTAN POTASSIUM 50 MG TAB PO SCH (08:20)
[2023-02-03] MEDS: GABAPENTIN 100 MG CAP PO SCH ×2 (08:20→20:15)
[2023-02-03] MEDS: MONTELUKAST SODIUM 10 MG TABLET PO SCH (08:21)
[2023-02-03] MEDS: buPROPion XL 150 MG TABCR PO SCH (08:21)
[2023-02-03] MEDS: AMIODARONE 200 MG TAB PO SCH (08:21)
[2023-02-03] MEDS: ATORVASTATIN 40 MG TAB PO SCH (08:21)
[2023-02-03] MEDS: levETIRAcetam 1,000 MG in 0.9 % SODIUM CHLORIDE 100 ML IV SCH ×2 (08:22→20:15)
--- NOTE | 2023-02-03 09:04 | Hospitalist Progress Note ---
Date of Service February 03, 2023 Assessment & Plan (1) Acute CVA (cerebrovascular accident): Plan: 67 yo F with type 2 diabetes, hyperlipidemia, asthma- COPD overlap syndrome, obstructive sleep apnea, persistent atrial fibrillation, nonischemic cardiomyopathy, history of CVA, mitral regurgitation, atherosclerosis of coronary artery, morbid obesity, migraine without aura, depression with anxiety presents with strokelike symptoms. Acute CVA Dysarthria Initial workup with CT scan of head and CTA head and neck unremarkable MRI brain - IMPRESSION: 1. Scattered areas of small infarcts involving the insular region, left posterior centrum semiovale and left frontal and parietal cortex. 2. No intracranial hemorrhage. 3. Underlying microangiopathic white matter disease. Echo obtained Speech evaluation Neurology consulted - ok to stop plavix and do heparin bridge to coumadin Cardiology consulted - pt w/ pAfib, hx of CVAs on eliquis - plan to transition to coumadin w/ heparin bridge, daily INR while on both. 01/25 Overnight pt had seizure-like episode, was intubated, started on pressors,moved to ICU. Brain MRI repeated : IMPRESSION: Interval progression of the now moderate sized acute to subacute left MCA territory infarct as described above. No midline shift or intracranial hemorrhage identified at this time. Per Neurology, Renita aponte recommended wtih a hold on coumadin for 7 days until reassessment could be done with head CT given large size of stroke. EEG obtained - No electrographic seizures or epileptiform discharges are seen. Transitioned to ICU and intubated. 01/28 Pt extubated. Moves extremities except RUE. 01/29 On suppl. O2. Remains aphasic. Can't take PO. Follows simple commands. 01/30 On suppl. O2. Mental status seems improved. Follows simple commands. Moves extremities except for RUE. Remains aphasic. Able to take po amiodarone crushed today. Continues on atorvastatin and heparin drip. Not on antiplatelet therapy as source of stroke is likely embolic. Bradycardia-intermittent--History of atrial fibrillation-stopped all metoprolol and HR has now improved. No immediate plans for pacer. Cont monitoring on telemetry Remains on amio and is in sinus rhythm-HR is 86bpm. cont heparin drip with coumadin bridge, INR was 1.5 today. Increase warfarin from 5mg to 7.5mg PO daily. fever with bacteremia (likely contaminant)- *resolved. poss. Aspiration posit. blood cultx with fever and increased secretions. increased secretions noted, fever Unasyn given x 7 days and Vanc started but then stopped. -->completed abx Appears improved with repeat blood cultures negative and afebrile--clinically well, this ART PREPARATOR in the blood was a likely contaminant. Diabetes-chronic, controlled. Hold home GLP-1 agonist and metformin. Cont insulin while admitted. History of asthma/COPD-chronic, stable. Continue home inhalers Hypertension-chronic, elevated today so restarted her losartan. Toprol XL was stopped. Goal BP 140/90 on avg at this point. Obstructive sleep apnea-chronic, stable. Cont CPAP nightly Depression with anxiety-restart home Wellbutrin and nortriptyline now that she is able to swallow to avoid withdrawal Hyperlipidemia-chronic, stable. Cont statin DVT prophylaxis SCDs , heparin Disposition: to rehab, medically stable for transfer when bed is available. Full code [facility] and [facility]tic[facility]ated Discharge Date Admission Date: January 23, 2023 Subjective Pt seen in follow up of CVA, had seizure episode afterwards, was intubated, on pressors in ICU Pt is extubated on suppl. O2,remains in room 107- now PCU status. Pt following commands somewhat. Awake but appears to be neglecting right side. Some verbal communication today that is not clear words, and the sounds are not part of intentional or meaningful communication. Moving right arm around more today. Mental status seems improved. Brighter and working with OT, sitting at the edge of the bed. She attempted to put her own socks on. Aphasic, able to eat and swallow. Urinary catheter removed. Physical Exam Physical Exam: CONSTITUTIONAL: obese, vitals as above, generally NAD EYES: PERRL, eyes deviated to the left, normal conjunctivae, no scleral icterus ENT: external ear and nose normal, oropharynx clear, MMM, some facial asymmetry noted. 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 Some use of the right arm to boost herself while she transitions in bed. SKIN: warm and dry NEUROLOGIC: right side neglect, eyes deviated right. PSYCHIATRIC: aphasic, cannot assess. Results & Data Results & Data Vital Signs (Past 12 Hours) Vital Signs Temp Pulse Pulse Resp BP Pulse Ox O2 Del Method 02/03/23 07:35 58 L 18 91 Room Air 02/03/23 07:25 36.7 C 83 18 145/76 H 92 Room Air 02/03/23 07:00 83 02/03/23 03:59 36.5 C 76 18 147/81 H 99 BiPAP 02/03/23 03:47 76 19 99 02/03/23 00:12 82 02/03/23 00:00 02/02/23 23:25 36.5 C 72 16 157/76 H 93 Room Air 02/02/23 23:02 84 18 90 O2 Del Method O2 Flow Rate O2 Flow Rate 02/03/23 07:35 02/03/23 07:25 02/03/23 07:00 02/03/23 03:59 2 02/03/23 03:47 2 02/03/23 00:12 02/03/23 00:00 CPAP 2 02/02/23 23:25 02/02/23 23:02 2 Laboratory Results Short CBC 02/03/23 Range/Units 03:28 WBC 8.55 (4.8-10.8) K/ul Hgb 11.2 L (12.0-16.0) g/dl Hct 34.1 L (37.0-47.0) % Plt Count 303 (130-400) K/uL BMP 02/03/23 03:28 Sodium 136 Potassium 3.6 Chloride 98 Carbon Dioxide 29 BUN 14 Creatinine 0.72 Glucose 112 H Calcium 9.3 Medications Administered Current Inpatient Medications Albuterol (Albut/Ipratrop 3mg/0.5mg Neb 3 Ml Vial) 3 ml NEB Q4R PRN; Protocol PRN Reason: Shortness Of Breath Or Wheezing Stop: 02/27/23 18:59 Last Admin: 01/28/23 15:48 Dose: 3 ml Amiodarone HCl (Amiodarone 200 Mg Tab) 200 mg PO QAM [facility] Stop: 03/05/23 08:59 Last Admin: 02/03/23 08:21 Dose: 200 mg Atorvastatin Calcium (Atorvastatin 40 Mg Tab) 80 mg PO QAM [facility] Stop: 02/24/23 08:59 Last Admin: 02/03/23 08:21 Dose: 80 mg Atropine Sulfate (Atropine Sulfate 0.1 Mg/Ml 10ml Syr) 1 mg IV Q3M PRN PRN Reason: symptomatic bradycardia Budesonide (Budesonide 0.25 Mg/2 Ml Vial (Pulmicort)) 0.25 mg NEB BIDR [facility] Stop: 02/27/23 18:59 Last Admin: 02/03/23 07:35 Dose: 0.25 mg Bupropion HCl (Bupropion Xl 150 Mg Tabcr) 150 mg PO DAILY [facility] Stop: 03/05/23 08:59 Last Admin: 02/03/23 08:21 Dose: 150 mg Dextrose (Dextrose 50% 50 Ml Syringe) 25 - 50 ml IV UD PRN; Protocol PRN Reason: Hypoglycemia Protocol Stop: 02/23/23 00:12 Formoterol Fumarate (Formoterol 20 Mcg/2 Ml Vial) 20 mcg INH BIDR [facility] Stop: 02/27/23 18:59 Last Admin: 02/03/23 07:35 Dose: 20 mcg Gabapentin (Gabapentin 100 Mg Cap) 100 mg PO BID [facility] Stop: 02/23/23 08:59 Last Admin: 02/03/23 08:20 Dose: 100 mg Glucagon (Glucagon For Inj 1 Mg Vial) 1 mg SQ UD PRN; Protocol PRN Reason: Hypoglycemia Protocol Stop: 02/23/23 00:12 Glucose (Glucose 10 Tab/Tube) 4 - 8 tab PO UD PRN; Protocol PRN Reason: Hypoglycemia Treatment Stop: 02/23/23 00:12 Glucose (Glucose 40% Gel 15 Gm Tube) 15 - 30 gm PO UD PRN; Protocol PRN Reason: Hypoglycemia Protocol Stop: 02/23/23 00:12 Heparin Sodium/Dextrose (Heparin Sodium/Dextrose) 25,000 units in 500 mls @ 25 mls/hr IV .Q20H [facility]; Protocol Stop: 02/24/23 02:44 Last Titration: 02/03/23 07:08 Dose: 1,250 units/hr, 25 mls/hr Pantoprazole Sodium 40 mg/ (Syringe) 10 mls @ 5 mls/min IV DAILY@1100 [facility]; Protocol Stop: 02/26/23 11:59 Last Admin: 02/02/23 10:07 Dose: 5 mls/min Levetiracetam 1,000 mg/ Sodium (Chloride) 110 mls @ 440 mls/hr IV BID [facility] Stop: 02/27/23 20:59 Last Admin: 02/03/23 08:22 Dose: 440 mls/hr Insulin Aspart (Insulin Aspart Per Unit Charge) 0 units SC ACHS [facility] Stop: 03/01/23 11:44 Last Admin: 02/03/23 08:10 Dose: Not Given Lorazepam (Lorazepam 0.5 Mg Tab) 0.5 mg PO Q6H PRN PRN Reason: Anxiety Stop: 02/25/23 10:50 Losartan Potassium (Losartan Potassium 50 Mg Tab) 50 mg PO DAILY [facility] Stop: 02/23/23 08:59 Last Admin: 02/03/23 08:20 Dose: 50 mg Metoprolol Succinate (Metoprolol Succ 50mg Ext Rel Tab) 100 mg PO BID [facility] Stop: 02/23/23 20:59 Last Admin: 01/24/23 20:00 Dose: 100 mg Metoprolol Tartrate (Metoprolol Tartrate 1 Mg/Ml Vial) 2.5 mg IV Q6 [facility] Stop: 03/01/23 05:59 Last Admin: 01/30/23 05:24 Dose: 2.5 mg Miscellaneous (Carbohydrates For Hypoglycemia ) 15 - 30 gm PO UD PRN PRN Reason: Hypoglycemia Protocol Stop: 02/23/23 00:12 Montelukast Sodium (Montelukast Sodium 10 Mg Tablet) 10 mg PO DAILY [facility] Stop: 02/23/23 08:59 Last Admin: 02/03/23 08:21 Dose: 10 mg Multivitamins/Minerals (Multi Vit W/Minerals Liquid 15 Ml Udp) 15 ml PO QAM [facility] Stop: 02/26/23 08:59 Last Admin: 02/03/23 08:20 Dose: 15 ml Nitroglycerin (Nitroglycerin Sl 0.4 Mg/Tab Tab) 0.4 mg SL Q5M PRN PRN Reason: Chest Pain Stop: 02/23/23 00:12 Nortriptyline HCl (Nortriptyline Hcl 25 Mg Cap) 25 mg PO HS [facility] Stop: 02/23/23 20:59 Last Admin: 02/02/23 20:06 Dose: 25 mg Warfarin Sodium (Warfarin Sod 5 Mg Tab) 5 mg PO DAILY@1600 [facility] Stop: 03/02/23 15:59 Last Admin: 02/02/23 15:24 Dose: 5 mg Zinc Acetate/Diphenhydramine (Diphenhydramine 2%/Zinc 0.1% Cream 28.4gm Tube) 1 appln EXT BID PRN PRN Reason: Itching Stop: 02/23/23 05:55 Last Admin: 01/24/23 20:02 Dose: 1 appln
[2023-02-03] MEDS: PANTOprazole 40 MG in SYRINGE 0 ML IV SCH (11:34)
[2023-02-03] MEDS ORDERED: WARFARIN SOD 7.5 MG TAB PO SCH (16:00)
[2023-02-03] MEDS: NORTRIPTYLINE HCL 25 MG CAP PO SCH (20:15)
--- NOTE | 2023-02-03 20:56 | Urology Consultation ---
Date of Consultation February 03, 2023 Assessment & Plan (1) Urinary retention: The patient has failed a voiding trial as noted in the history of present illness and her La catheter has been replaced. From a urologic perspective would recommend the following: Maintain La catheter for bladder rest for the present time. Consideration be given to performing a voiding trial at a later date It May be beneficial to recheck a urinalysis and culture if indicated to ensure the patient does not have an underlying urinary tract infection contributing to this problem. (This has been ordered) It May also be beneficial to discontinue any nonessential medications that may be contributing to urinary retention. Upon review of her medications she does take nortriptyline which can sometimes be associated with urinary retention. We will defer to the medical service if this medication should be discontinued or not however. History of Present Illness Reason for Consultation: Urinary retention Attending Physician: Lilia Wolff, History of Present Illness This is a 67-year-old female who was admitted to [facility] on 01/23/2023. I visited with the patient in room 455 and the patient was noted to have significant dysarthria and was able unable to provide much in the way of meaningful history. Records were reviewed and patient was admitted to the hospital on 01/23/2023 as noted above as patient's family noted that she had some dysarthria. Patient was found to have an acute ischemic left middle cerebral artery stroke and has been noted to have seizure-like activity along with bradycardia and hypotension during this admission. Urology was asked to evaluate the patient secondary to urinary retention as patient had La catheter removed earlier today and she failed a trial of void. The patient has since had her La catheter replaced. The patient's most recent labs were reviewed which were from earlier today. CBC revealed white blood cell count and platelet count within normal range. Her hemoglobin and hematocrit were 11.2 and 34.1. Chemistry profile showed sodium and potassium along with the BUN and creatinine were normal. The patient's most recent urinalysis was performed on 01/25/2023 which was not indicative of a urinary tract infection. At the time of my interview the patient was resting comfortably in bed. She did not appear to be in any distress. Allergies Allergy/AdvReac Type Severity Reaction Status Date / Time erythromycin base Allergy Severe Rash Verified 08/15/22 15:20 Sulfa (Sulfonamide Allergy Severe Rash Verified 08/15/22 15:20 Antibiotics) aspirin Allergy Intermediate Rash Verified 08/15/22 15:20 latex Allergy Intermediate RASH Verified 08/15/22 15:20 Home Medications Medication Instructions Recorded Confirmed Type amiodarone 200 mg tablet 200 mg PO BID 01/23/23 01/23/23 History apixaban 5 mg tablet (Eliquis) 5 mg PO BID 01/23/23 01/23/23 History atorvastatin 40 mg tablet 40 mg PO DAILY 01/23/23 01/23/23 History bupropion HCl 300 mg 24 hr tablet, 300 mg PO DAILY 01/23/23 01/23/23 History extended release fluticasone fur. 200 mcg-umeclid 1 inh inhalation DAILY 01/23/23 01/23/23 History 62.5 mcg-vilant 25 mcg inhalat.powder (Trelegy Ellipta) gabapentin 100 mg capsule 100 mg PO BID 01/23/23 01/23/23 History losartan 50 mg tablet 50 mg PO DAILY 01/23/23 01/23/23 History metformin 500 mg tablet 500 mg PO BID 01/23/23 01/23/23 History metoprolol succinate 100 mg 100 mg PO BID 01/23/23 01/23/23 History tablet,extended release 24 hr montelukast 10 mg tablet 10 mg PO DAILY 01/23/23 01/23/23 History nortriptyline 25 mg capsule 25 mg PO HS 01/23/23 01/23/23 History tirzepatide 2.5 mg/0.5 mL 5 mg subcut WK 01/23/23 01/23/23 History subcutaneous pen injector (Harsh) Patient History Medical History Left ventricular systolic dysfunction (LVSD) History of dynamic ventricular outflow tract obstruction No significant LV outflow tract obstruction noted on resting ECHO 11/2021 per cardio records COPD (chronic obstructive pulmonary disease) Per records Cardiomyopathy Tachycardiac vs idopathic CM (EF 48% in 2018- improved to 55% in 11/2021). Negative nuclear stress test 2017 and 01/2022 Morbid obesity with BMI of 40.0-44.9, adult Prediabetes per pt reason for metformin On anticoagulant therapy eliquis daily Hyperthyroidism RADIOACTIVE IODINE TREATMENT Depression Cardiac murmur Sleep apnea CPAP Asthma inhaler daily/nebulizer prn Mitral regurgitation ADD (attention deficit disorder) Hepatitis C [place] H/O migraine HLD (hyperlipidemia) HTN (hypertension) Atrial fibrillation follows with Dr. Romero--on eliquis/metoprolol/amiodarone Surgical History History of esophagogastroduodenoscopy (EGD) with EUS @ [facility] 04/19/22 History of tooth extraction History of cardiac radiofrequency [place] x2[place] [facility] [place] of [place] biopsy History of appendectomy History of colonoscopy History of cardioversion x4--last 07/24/22---follows with Dr. Romero also had 03/06/22, 11/2021 and 01/2018 S/P ovarian cystectomy Family History Grandfather Family hx of colon cancer Family/Other Family history of diabetes mellitus Other No family history of adverse response to anesthesia Social History Smoking Status: Former smoker Tobacco Type: Cigarettes Smoking End Date: n/a; Second Hand Exposure: No; Do You Dip or Chew Tobacco: No; Tobacco Cessation Education Requested by Patient: No Hx Alcohol Use: No Hx Substance Use: No Preferred Language: Italian Communication Ability: Impaired Typing Teacher Required: No Beliefs That Will Affect Care: None Current Living Situation: Alone Other Information That Helps Us Care for You: No Feels Safe at Home: Yes Safety Concerns: Feels Safe At This Time Assistive Devices: Cane Review of Systems Review of Systems: Unobtainable due to cognitive status Physical Exam Constitutional: WD/WN, vitals as above Gastrointestinal (Abdomen): Abdomen soft and nondistended. Palpation did not appear to elicit a painful response Genitourinary: La catheter is in place draining clear yellow urine in the La catheter did appear patent. Results & Data Vital Signs (Past 12 Hours) Vital Signs Temp Pulse Pulse Resp BP BP Pulse Ox 02/03/23 19:59 02/03/23 19:42 76 19 90 02/03/23 19:10 37 C 79 18 157/80 H 90 02/03/23 16:04 36.5 C 73 18 159/74 H 94 02/03/23 14:00 59 L 02/03/23 12:16 36.8 C 62 18 144/79 H 93 O2 Del Method 02/03/23 19:59 Room Air 02/03/23 19:42 Room Air 02/03/23 19:10 Room Air 02/03/23 16:04 Room Air 02/03/23 14:00 02/03/23 12:16 Room Air PG Care Time/CCT Total # of Minutes Spent Total Time Spent with Patient: Total time spent is greater than 50% in coordination of care (as documented) at patient's floor/unit and/or counseling patient: Coding Level of Care Code 79680 INT INP/OBS CARE 2/55MIN Diagnoses Urinary retention R33.9
[2023-02-03 22:04] LABS: Appearance Urine Clear (Clear); Bacteria Urine Automated Negative (Negative); Bilirubin Urine Negative (Negative); Blood Urine Negative (Negative); Cast Urine Automated 0 /lpf (0-5); Color Urine Yellow; Glucose Urine UA Negative (Negative); Ketones Urine Negative (Negative); Leukocyte Esterase Urine Trace (Negative); Nitrite Urine Negative (Negative); Protein Urine Negative (Negative); RBC Urine Automated 0-4 /hpf (0-4); Specific Gravity Urine 1.015 (1.000-1.030); Urobilinogen Urine Negative (Negative)
[2023-02-04 06:59] LABS: INR 2.1 (0.9-1.1); Prothrombin Time 21.7 Seconds (9.0-12.0)
[2023-02-04] MEDS: FORMOTEROL 20 MCG/2 ML VIAL INH SCH (07:11)
[2023-02-04] MEDS: AMIODARONE 200 MG TAB PO SCH (08:31)
[2023-02-04] MEDS: LOSARTAN POTASSIUM 50 MG TAB PO SCH (08:31)
[2023-02-04] MEDS: ATORVASTATIN 40 MG TAB PO SCH (08:31)
[2023-02-04] MEDS: MULTI VIT W/MINERALS LIQUID 15 ML UDP PO SCH (08:32)
[2023-02-04] MEDS: buPROPion XL 150 MG TABCR PO SCH (08:32)
[2023-02-04] MEDS: MONTELUKAST SODIUM 10 MG TABLET PO SCH (08:33)
[2023-02-04] MEDS: levETIRAcetam 1,000 MG in 0.9 % SODIUM CHLORIDE 100 ML IV SCH (08:33)
[2023-02-04] MEDS: GABAPENTIN 100 MG CAP PO SCH (08:33)
[2023-02-04] MEDS: INSULIN ASPART PER UNIT CHARGE SC SCH (08:56)
[2023-02-04] MEDS ORDERED: PANTOprazole 40 MG TAB PO SCH (09:00)
[2023-02-04] MEDS ORDERED: Heparin IV Adult Wt-Based Low-Dose *NO* INITIAL Bolus Protocol IV ONE (10:15)
--- NOTE | 2023-02-04 10:18 | Discharge Summary ---
Discharge Summary Date of Service February 04, 2023 Notes For Next Care Provider Followup Neurology in 4 weeks INR in 2-3 days, titrate for goal INR 2-3 No driving, swimming, tubs, ladders Repeat TOV off nortriptyline Taper off Bupropion/replace medication for depression as needed Outpatient PSG/PFTs thyroid us for thyroid nodule Medication Changes From Visit NEW warfarin-stop apixaban STOP Metoprolol CHANGE amiodarone to 200mg PO daily NEW Keppra 1000mgPO BID CONT TO TAPER OFF Bupropion HELD nortryptiline pending resolution of urinary retention INCREASE atorvastatin to 80mg PO daily Admission HPI Per Admitting Provider 67-year-old female with past med history significant for type 2 diabetes, hyperlipidemia, asthma- COPD overlap syndrome, obstructive sleep apnea, persistent atrial fibrillation, nonischemic cardiomyopathy, history of CVA, mitral regurgitation, atherosclerosis of coronary artery, morbid obesity, migraine without aura, depression with anxiety presents with strokelike symptoms. Patient drove to their daughter's house around 3 PM. Daughter noticed some dysarthria does not know when it exactly started, thought it might be resolved but it did not and by dinner time she was dropping things from her right hand and she was brought to the hospital and stroke alert was called. Initial workup is unremarkable. But patient still has some difficulty speaking. Could answer some questions. Daughter is in the room and answering most of the questions. Daughter is physician. Patient had a large right MCA stroke in August 2022. She has some weakness in the left side from that but as per daughter she remarkably improved.She ambulates with a cane. Today patient states she was able to walk to the bathroom in the ER. No recent fever or chills. No cough. No chest pain. Has some shortness of breath. No hematuria. No blood in the stools or black stools. Currently hemodynamically stable. Past medical history. As mentioned above Past surgical history. Appendectomy. Right breast biopsy. Colonoscopy. EGD with endoscopic ultrasound. Electrical electrophysiology evaluation for atrial fibrillation with pulmonary vein isolation. Laparoscopic abdomen with aspiration of ovarian cyst. Social history. Quit smoking 2014. Smoked half pack a day for 40 years. Alcohol rarely. No drug use. Family history. Mother had bipolar disorder. Hypertension. Sister had bipolar disorder. Breast cancer. Maternal grandfather had colon cancer. Uncle had diabetes. Admission Exam Per Admitting Provider General- Not in distress. Head- atraumatic Eyes- PERRL. ENT- oropharynx clear Neck- supple, no JVD. Lungs- clear to auscultation, no wheezing or crackles. Heart- regular rhythm; no murmur, no gallop. Abdomen- normal bowel sounds, soft, nontender, no distension. Extremities- trace pretibial edema, no erythema seen. Neuro- alert, oriented ; PERRL, no facial palsy; dysarthria present ; motor 5/5 left extremities 3-4/5 in right extremities , mild pronator drift in right upper extremity, co ordination of movements normal. sensations intact. Skin- warm & dry Principal Dx & Hospital Course #1 = Principal Diagnosis (1) Acute ischemic left MCA stroke: (2) Encephalopathy: (3) Urinary retention: (4) Paroxysmal atrial fibrillation: (5) Dyslipidemia: (6) Sleep apnea: (7) T2DM (type 2 diabetes mellitus): (8) Morbid obesity: Plan The patient is a 67-year-old female with a history significant for morbid obesity, type 2 diabetes, hyperlipidemia, obstructive sleep apnea, atrial fibrillation, nonischemic cardiomyopathy, history of CVA, atherosclerosis of coronary artery, migraine without aura, depression and anxiety who presented with strokelike symptoms. Patient has a history of a large right MCA stroke in August 2022. She had been on apixaban for anticoagulation for treatment of atrial fibrillation. She ambulated with a cane at baseline and had some residual left- sided weakness as a result of the previous stroke. In the emergency room labs revealed no significant leukocytosis or anemia and INR was unremarkable. BMP along with LFTs bilirubin and troponin were negative. CT angio of the head and neck were negative. EKG was unremarkable. The patient did have expressive aphasia with slurred speech and some mild right arm weakness. This was consistent with a stroke. She had an unknown last known well time. She was not a TN kinase candidate as the patient was on Eliquis with unknown last known well time. She was admitted to the hospitalist service. Bradycardia was noted on t elemetry and amiodarone and metoprolol succinate was held. Eliquis was held in the setting of acute CVA and cardiology and neurology were consulted. Statin was continued. Patient was not given aspirin as she has a history of allergy. Overnight neurologist recommended starting Plavix 75 daily in the short-term. The following day this was stopped and warfarin bridge was recommended. Amiodarone was restarted at a lower dose of 200 mg twice daily and metoprolol was continued at a lower dose of 25 mg daily. Echocardiogram revealed EF of 55 to 60%, with grade 2 diastolic dysfunction and severe pulmonary hypertension. An incidental right thyroid nodule was seen on CT scan and a follow-up thyroid ultrasound was recommended nonurgently. Overnight on 1124 she was intubated in order to control agitation which was potentially postictal after seizing. She was given benzodiazepines. She developed bradycardia with a heart rate in the 30s and her blood pressure dropped. She was placed on dopamine and Levophed drips. Heparin was held until CT head was repeated which revealed no acute findings at which point this was resumed. She was sedated with propofol. She was loaded with Keppra and continued on Keppra [address] Repeat head CT was recommended in 7 days to determine if it was safe to start warfarin. Amiodarone was placed on hold temporarily. Critical care notes reflect that CT revealed progression of stroke with surrounding vasogenic edema. Her head of bed was kept at 30 degrees. As a result avoidance of hypoxemia and hyperthermia was paramount. Echocardiogram with bubble study revealed no right to left shunt. 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 Complement levels were checked and also TAYLOR, ESR, CRP and ANCA. The studies were unremarkable. Transfer to [facility] was offered to her daughter who is a physician given the vasogenic edema and multifocal strokes as we did not have the capability to perform cerebral angiogram at this facility. Family was fine with her staying at [facility]. Outpatient workup with PFTs and polysomnography at some point was recommended given severe pulmonary hypertension seen on echocardiogram. Metoprolol was stopped indefinitely and she did not become significantly bradycardic after this. Amiodarone 200 mg p.o. daily was able to be restarted successfully. She did develop a fever and blood cultures revealed staph epi which was thought to be a contaminant. White blood cell count was elevated however and procalcitonin remained normal. Unasyn was started and continued for 7 days. No clear source of infection was identified. EEG revealed moderate to severe slowing consistent with intubation and sedation with no seizure activity noted. There was no clinically relevant cerebral edema and no risk for herniation given the small to moderate size of her stroke and the hypertonic saline which have been started was stopped per neurology. Neurology also did not feel her clinical picture was consistent with vasculitis. No further workup from a neurologic perspective was needed. She continued with ICU supportive care and was successfully extubated. Residual deficits included persistent right-sided neglect and difficulty using her right arm. She remains aphasic and intermittently able to follow commands. She was sent in stable condition to rehabilitation center with close primary care follow-up. Notably Arizmendi catheter was removed and she was retaining urine. This may have been secondary to nortriptyline which was a home medication to treat depression and anxiety. This was held at discharge and Arizmendi catheter was replaced additional trial of void will be needed at rehab center and if she fails following up with [facility] physician group urology is recommended. Notably there was no evidence of urinary tract infection. Coumadin was started in the hospital and INR was 2.1 at time of discharge. Goal INR is 2-3. A repeat INR should be checked in the next 2 to 3 days to ensure no additional titration of this Coumadin dose is needed. Patient will also need to establish with a local Coumadin clinic for ongoing management. The patient was instructed to avoid driving for at least 6 months but also no swimming or bath tubs and no ladders or high areas. Bupropion was also weaned down which was a home medicine for treatment of depression and anxiety as this lowers the threshold for seizure. Continue taper as outpatient as recommended. Discharge Exam CONSTITUTIONAL: obese, vitals as above, generally NAD EYES: PERRL, eyes deviated to the left, normal conjunctivae, no scleral icterus ENT: external ear and nose normal, oropharynx clear, MMM, some facial asymmetry noted. NECK: trachea midline RESPIRATORY: clear to auscultation bilaterally, no crackles, rales or wheezes, normal respiratory effort CARDIOVASCULAR: regular rate and rhythm, S1 and 2 heard without murmurs, gallops or rubs, no JVD, no peripheral edema CHEST: inspection of chest was normal GASTROINTESTINAL: soft, nontender, ND, no guarding MUSCULOSKELETAL: generalized weakness, focal deficit with right upper arm strength and right visitor services assistant strength. Some use of the right arm to boost herself while she transitions in bed. SKIN: warm and dry NEUROLOGIC: right side neglect, eyes deviated right. PSYCHIATRIC: aphasic, cannot assess. Updated Medication List Medication Instructions Recorded Confirmed Type amiodarone 200 mg tablet 200 mg PO BID 01/23/23 01/23/23 History apixaban 5 mg tablet (Eliquis) 5 mg PO BID 01/23/23 01/23/23 History atorvastatin 40 mg tablet 40 mg PO DAILY 01/23/23 01/23/23 History bupropion HCl 300 mg 24 hr tablet, 300 mg PO DAILY 01/23/23 01/23/23 History extended release fluticasone fur. 200 mcg-umeclid 1 inh inhalation DAILY 01/23/23 01/23/23 History 62.5 mcg-vilant 25 mcg inhalat.powder (Trelegy Ellipta) gabapentin 100 mg capsule 100 mg PO BID 01/23/23 01/23/23 History losartan 50 mg tablet 50 mg PO DAILY 01/23/23 01/23/23 History metformin 500 mg tablet 500 mg PO BID 01/23/23 01/23/23 History metoprolol succinate 100 mg 100 mg PO BID 01/23/23 01/23/23 History tablet,extended release 24 hr montelukast 10 mg tablet 10 mg PO DAILY 01/23/23 01/23/23 History nortriptyline 25 mg capsule 25 mg PO HS 01/23/23 01/23/23 History tirzepatide 2.5 mg/0.5 mL 5 mg subcut WK 01/23/23 01/23/23 History subcutaneous pen injector (Harsh) atorvastatin 80 mg tablet 80 mg PO HS #30 tabs 02/04/23 Rx bupropion HCl 150 mg 24 hr tablet, 150 mg PO DAILY #30 tabs 02/04/23 Rx extended release levetiracetam 1,000 mg tablet 1,000 mg PO BID #60 tabs 02/04/23 Rx (Keppra) warfarin 7.5 mg tablet (Jantoven) 7.5 mg PO DAILY@1600 #30 tabs 02/04/23 Rx Hospital Stay Data Consultations 01/23/23 21:00 ED Decision to Admit Stat 01/24/23 08:00 Consult Cardiology Routine Consult Neurology Routine 01/25/23 02:05 Consult Photovoltaic Solar Cell [employer]er Routine 02/03/23 17:38 Consult Urology Routine Diagnostic Imagining Performed 01/23/23 19:38 CT angio head w con Stat CT angio neck with con Stat CT head/brain wo con Stat 01/24/23 00:03 MR brain wo/w con Urgent 01/25/23 00:32 CT head/brain wo con Stat 01/25/23 02:45 MRI Brain [MR brain wo con] Routine 02/01/23 08:[address] [CT head/brain wo con] Routine Pending Results Patient Have Any Pending Studies at Discharge: No Discharge Instructions Given to Patient (Per Discharging Provider) Please take all medications as instructed on discharge list below. You have been transitioned to warfarin, and are now off apixaban. Please avoid taking other blood thinners such as Motrin or Naproxen to avoid increased risk of bleeding. A repeat INR level should be checked in 1-2 days with continued adjustments in your dose for goal INR 2-3. Your INR at discharge was 2.1. You had a seizure during this admission, also. Therefore, there is a relative contraindication to continuing Bupropion, which was decreased by 50%. Please continue to taper this as outpatient and work with primary care physician for a replacement as needed. You are being placed on Keppra which is an anti-seizure medication. There is no driving for at least 6 months after a seizure, however, also please avoid sitting in a tub of water, no swimming, and no high areas such as ladders, etc. Please follow-up with Neurology in 4-6 weeks regarding follow-up of the stroke and the seizure. You were taken off nortriptyline at this time because of urinary retention. There is no evidence of a urinary tract infection. Outpatient thyroid ultrasound is recommended to evaluate your thyroid nodule. This may be ordered by your primary provider on follow-up. Outpatient sleep study and pulmonary function tests are recommended given the severe pulmonary hypertension noted on your echocardiogram. Please followup with your primary care provider in one week after discharge to ensure you are doing well and to perform a medication review given multiple changes. You will leave the hospital with a arizmendi catheter in place, and will need to undergo a voiding trial while at the rehab center. If this is unsuccessful, please consider seeing [facility] at time of discharge from rehab. It was a pleasure taking care of you! Please call if you have any questions or problems. You can reach a [facility] hospitalist on duty at [facility] 24 hours a day by calling [phone]. Take care of yourself. Lilia Wolff DO [facility] Hospitalist Total Time Total Time Spent Total Time Spent (In Minutes): 60
== END 2023-02-04 14:00 | DRG 64 ==
LOC: ED 19:31 → SUATTDRO 23:05 → 2S 23:05 → 1E 01-25 00:47 → 4W 02-01 14:09

== ENCOUNTER 2023-10-01 05:20 | Inpatient (IN) ==
--- OUTSIDE RECORDS SUMMARY | 2023-10-01 05:28 | External Medical Summary | Summary of Care ---
Author Name Unknown Organization [facility] Address [address] [place] [address] Phone [phone] Care Team Providers Care Rn Cvicu Name Role Phone Luz Moraleslle DONNA Primary Care Provider Reason for Visit * Reason Onset Date Comments Appointment 09/03/2023 Pulmonary ret Encounter Details Date Type Department Care Team (Late st Contact Info) Description 09/03/2023 Telephone Pulmonary Medicine, [facility] [address] [place] [address] [facility] [address] [facility] [address] [facility] (Pulmonary ret ) Allergies Active Allergy Reactions Criticality Noted Date Comments Erythromycin Rash 12/14/1999 Ibuprofen Rash 08/05/2011 Latex Rash 03/20/2007 Latex High 07/24/2022 Other reaction(s): RASH Sulfa Antibiotics Rash 12/14/1999 documented as of this encounter (statuses as of 09/30/2023) Medications Medication Sig Dispensed Refills Start Date End Date Status MULTIVITAMINS PO TABS one tab by mouth daily Active cetirizine (ZYRTEC) 10 MG Tablet Take 1 Tab by mouth daily. 30 Tab 3 01/30/2018 Active Additional Information Patient taking differently:10 mg OralDAILY PRN, Other, allergy symptoms, Indications: allergies, Informant: At Discharge, Reported on 08/30/2022 Nebulizers (NEBULIZER COMPRESSOR) MISCIndications:CO PD, mild (HCC),MCCARTNEY (dyspnea on exertion),Severe persistent asthma, unspecified whether complicated Inhale via nebulizer. With tubing please. Use as directed. Lifetime need. 1 Each 1 05/13/2018 Active CPAP every night at bedtime. Auto pap 5-20 cm at bedtime Active Diclofenac Sodium 1 % External Gel (Voltaren) Apply topically to affected area daily. Apply to HANDS DAILY 350 g 1 02/08/2021 Active Additional Information Patient taking differently:TopicalDAILY PRN, Pain, Apply to HANDS DAILY, Informant: At Discharge, Reported on 08/30/2022 Mupirocin 2 % External Ointment (Bactroban) Apply to the nose twice daily 22 g 4 02/13/2021 Active Fluocinolone Acetonide Scalp 0.01 % External Oil Apply to scalp once weekly over night as directed 118.28 mL 08/30/2022 Active Mounjaro 5 MG/0.5ML Subcutaneous Solution Pen-injector (Tirzepatide) Inject 5 mg under the skin once a week. 6 mL 3 12/02/2022 12/02/2023 Active Docusate Sodium 100 MG Oral Capsule (Colace) Take 1 Capsule by mouth 2 times a day as needed for Constipation. 180 Capsule 3 04/10/2023 Active Acetaminophen 325 MG Oral Tablet (Tylenol) Take 2 Tablets by mouth every 6 hours as needed for Pain, Moderate. 100 Tablet 04/15/2023 Active Albuterol Sulfate HFA 108 (90 Base) MCG/ACT Inhalation Aerosol Solution Inhale 2 Puffs by mouth every 4 hours as needed for Shortness of Breath or Wheezing. 36 g 5 05/27/2023 Active Potassium Chloride Mary ER 10 MEQ Oral Tablet Extended ReleaseIndications :Edema, unspecified type Take 1 Tablet by mouth once a day on Friday, Friday, and Friday only. 12 Tablet 5 08/06/2023 Active Nucala 100 MG/ML Subcutaneous Solution Auto-injector (Mepolizumab)Indic ations:Severe persistent asthma without complication Inject 100 mg (1 pen) under the skin every 4 weeks. 1 mL 4 09/01/2023 Active documented as of this encounter (statuses as of 09/30/2023) Active Problems Problem Noted Date Diagnosed Date Visual disturbance 09/25/2023 Rash and nonspecific skin eruption 09/25/2023 Cellulitis of nasal tip 07/23/2023 Aphasia, post-stroke 05/27/2023 Obesity, Class II, BMI 35-39.9, isolated (see ac tual BMI) 03/30/2023 Expressive aphasia 03/30/2023 Last Assessment & Plan: Referral to ST Able to say yes and no. Severe pulmonary hypertension 03/30/2023 Last Assessment & Plan: Needs pulm follow up/PFTs. Thyroid nodule 03/30/2023 Last Assessment & Plan: She has known thyroid nodule s/p biopsy in 2019 that was benign. Her recent discharge summary makes note of follow up for thyroid nodule which may likely be same nodule. Sees pcp on Friday. Hemiplegia and hemiparesis f ollowing cerebral infarction affecting right dominant side 03/28/2023 Last Assessment & Plan: Currently residing at [facility]. Ambulating with cane, no falls. Referral placed for home health PT and OT Monitor BP, goal <130/80 Hgba1c at goal Continue atorvastatin 80mg daily and warfarin Due for lipid recheck Paroxysmal atrial fibrillation 03/28/2023 Last Assessment & Plan: History numerous cardioversions Now on coumadin--was on apixaban prior to recent stroke Developed bradycardia while inpatient and metoprolol was stopped. Continues amiodarone. Referral placed for anticoag MTM mgmt. Seizure disorder 03/28/2023 Last Assessment & Plan: Pt had seizure while inpatient. Now on keppra. To have follow up with neurology No seizures since d/c Wellbutrin dose was d/c from 300mg to 150mg daily Major depressive disorder with single episode, i n remission 03/28/2023 Last Assessment & Plan: Having some depression since stroke but no suicidal ideation. Good support from family She continues lowered dose wellbutrin and does not feel she needs further med optimization. Continue to monitor. Coronary artery disease invo lving [place] coronary artery of [place] heart without angina pectoris 11/01/2022 Migraine without aura and wi thout status migrainosus, not intractable 11/01/2022 Last Assessment & Plan: Denies any recent migraine. Followed by neurology Dyslipidemia 08/28/2022 Type 2 diabetes mellitus wit h hemoglobin A1c goal of less than 8.0% 08/09/2020 Asthma-COPD overlap syndrome 08/10/2018 Overview: Per COPD GOLD Classification LILI on CPAP 01/29/2018 Last Assessment & Plan: Has CPAP but does not like to wear it. Mitral regurgitation 06/13/2015 documented as of this encounter (statuses as of 09/30/2023) Resolved Problems Problem Noted Date Diagnosed Date Resolved Date COPD, group B, by GOLD 2017 classification 04/14/2023 09/16/2023 Overview: Per COPD GOLD Classification More specified on pl Severe persistent asthma without complication 03/30/19 24 03/30/2023 Severe persistent asthma without complication 03/30/19 24 03/31/2023 Last Assessment & Plan: Stable on trelegy Has rescue inhaler. Discussed nebulizer--she refuses this. It appears she had xopenex on med list in the past but not currently on [facility] Continues singulair, zyrtec Mepolizumab monthly Morbid (severe) obesity due to excess calories 03/28/2023 03/30/2023 Essential (primary) hypertension 03/28/2023 03/30/2023 Cerebrovascular accident (CV A) due to embolism of right middle cerebral artery 11/01/2022 03/30/2023 Need for prophylactic vaccin ation and inoculation against influenza 11/01/2022 03/30/2023 COPD, group B, by GOLD 2017 classification 09/09/2022 03/30/2023 Overview: Per COPD GOLD Classification Depression with anxiety 08/28/202203/04 History of right MCA stroke 08/28/2022 11/01/2022 Onychomycosis 08/01/2022 08/28/2022 Hypertensive heart disease w ithout congestive heart failure 02/01/2022 08/28/2022 Overview: HTN +Concentric L ventricular hypertrophy AN (generalized anxiety disorder) 06/28/2020 08/28/2022 Screening for diabetes mellitus 06/28/2020 08/09/2020 HTN (hypertension) 03/26/2019 3 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 or storm 03/26/2019 08/28/2022 Severe persistent asthma without complication 09/29/19 19 08/28/2022 Non-ischemic cardiomyopathy 07/02/2018 03/30/2023 Current mild episode of avani r depressive disorder without prior episode 07/02/2018 3 Morbid obesity 07/02/2018 03/30/2023 Severe persistent asthma with exacerbation 03/23/2018 04/19/2020 Concentric left ventricular hypertrophy 01/30/2018 08/28/2022 Centrilobular emphysema 01/30/2018 02/04/2021 Incidental pulmonary nodule, > 3mm and < 8mm 8 08/28/2022 COPD, mild 10/28/2017 08/12/2018 Overview: Per COPD GOLD Classification Persistent atrial fibrillation 08/13/2017 03/30/2023 Pulmonary nodule less than 6 cm determined by computed tomography of lung 07/29/2017 11/02/2017 MEDICATION USE AGREEMENT 03/28/2017 Body mass index (BMI) of 40. 0 [...] as of this encounter (statuses as of 09/30/2023) Immunizations Name Administration Dates Next Due COVID-19 mRNA, LNP-s, No Pre serve, 2-Dose Series (Mumart) 12/13/2020,05/30/2020,05/02/2020 COVID-19, LNP-s, No Preserve , Keith-sucrose, Ages 12+ (Pfizer) 07/04/2021 Pneumococcal Conjugate Vacci ne, 20-valent ([id number]) 02/13/2022 Pneumococcal Polysaccharide PPV23 (Pneumovax) 02/05/2020 Season Influenza, Quad, PF, Adjuvanted, 65+ Yrs, IM (FLUAD) 12/20/2019 Seasonal Influenza Virus Vac cine, Unspecified Formulation 01/01/2018 Seasonal Influenza, PF, 6 M & above, IM , (FluLaval or Fluzone) 12/21/2018,01/15/2018,01/08/2017 Seasonal Influenza, Quadriva lent Hd (Fluzone [...] Date Smoking Tobacco: Former Cigarettes 0.5 40 1 03/28/1974 - 01/26/2015 Smokeless Tobacco: Never Alcohol Use Standard Drinks/Week Comments Yes 0 (1 standard drink = 0.6 oz pur e alcohol) rarely PHQ-2 Answer Date Recorded PHQ Adult Total Score 0 04/01/2023 Hunger Vital Sign Answer Date Recorded Within the past 12 months, y ou worried that your food would run out before you got the money to buy more. Never true 03/28/19 24 Within the past 12 months, t he food you bought just didn't last and you didn't have money to get more. Never true 03/28/2023 Childcare Answer Date Recorded Do you feel overwhelmed with taking care of a child, family member or friend? No 03/28/2023 Does your family need help f inding childcare? (Household - for ages 0-17 years) Not on file 03/28/2023 Clothing Answer Date Recorded Have you been unable to get clothing when it was really needed? No 03/28/2023 Is your family able to get c lothes or diapers when needed? (Household - for ages 0-17 years) Not on file 03/28/2023 Personal Safety Answer Date Recorded Do you feel unsafe or have concerns for your saf ety? No 03/28/2023 Do you have concerns for you r family's safety? (Household - for ages 0-17 years) Not on file 03/28/2023 Utilities Answer Date Recorded Do you have trouble paying y our heating, water, or electric bill? No 03/28/2023 Is your family able to pay t he heat, water, or electric bill? (Household - for ages 0-17 years) Not on file 03/28/2023 Does your family have access to good internet? (Household - for ages 0-17 years) Not on file 03/28/2023 Employment Status Answer Date Recorded Are you unemployed or without regular income? No 03/28/2023 Does the household have a re gular source of income? (Household - for ages 0-17 years) Not on file 03/28/2023 Social Connections Answer Date Recorded How often do you feel lonely or isolated from those around you? Sometimes 03/28/2023 Financial Resource Strain Answer Date R ecorded Do you have any trouble payi ng for your medications, or do you think you might in the future? No 03/28/2023 Does your family have troubl e paying for medicine? (Household - for ages 0-17 years) Not on file 03/28/2023 Transportation Needs Answer Date Record ed READ ONLY Do you have troubl e getting a ride to medical visits or work? Never True 03/28/2023 Does your family have a hard time getting a ride to doctors visits? (Household - for ages 0-17 years) Not on file 03/28/2023 Has lack of transportation k ept you from medical appointments, meetings, work, or from getting things needed for daily living? Check all that apply. (Adult - for ages 18 years and over) Not on file 03/28/2023 Do you (or your family) have trouble finding or paying for a ride (transportation)? (Household - for ages 0-17 years) Not on file 03/28/2023 Housing Stability Answer Date Recorded Do you currently live in a s helter or have no steady place to sleep at night? No 03/28/2023 READ ONLY Do you think you a re at risk of becoming homeless? No 03/28/2023 Does your family worry about paying for your home or becoming homeless? (Household - for ages 0-17 years) Not on file 0 03/28/2023 Are you homeless or worried that you might be in the future? (Adult - for ages 18 years and over) Not on file Are you (or your family) fernanda eless or worried that you might be in the future? (Household - for ages 0-17 years) Not on file Food Insecurity Answer Date Recorded Do you need food for this week? No 03/28/2023 Are you able to get enough f ood for your family? (Household - for ages 0-17 years) Not on file 03/28/2023 Does your family need food t his week? (Household - for ages 0-17 years) Not on file 03/28/2023 Do you always have enough fo od for your family? (Household - for ages 0-17 years) Not on file 03/28/2023 Sex and Gender Information Value Date Recorded [...] or making decisions? (5 years old or older) No 06/24/2022 documented as of this encounter Miscellaneous Notes * Telephone Encounter - Sridevi Oscar OSA - 09/15/2023 10:16 AM EDT Daughter is very busy. She will call me back to schedule when she has a minute. * Telephone Encounter - Sridevi Oscar OSA - 09/03/2023 10:52 AM EDT Daughter request that I call her back on 09/14 to get her scheduled in pulmonary. documented in this encounter Plan of Treatment Upcoming Encounters Date Type Department Care Team (Late st Contact Info) Description 10/08/2023 5:45 PM EDT Anticoagulation [facility], [facility]ain [address] [place] [address] [place] [phone] [place] [address] 01/15/2024 7:40 AM EST Office Visit Family Practice [facility] [address] [place] [phone] Luz Morales CRNP [address] [place] [phone] 03/18/2024 3:00 PM EST Office Visit [facility] [address] [place] [phone] Teresita James DO [address] [place] [id number] Scheduled Procedures Name Priority Associated Diagnoses Date/Ti me COLONOSCOPY FLEXIBLE PROXIMA L DIAGNOSTIC Recall History of colonic polyps Health Maintenance Due Date Last Done Comments Alpha-1 Antitrypsin 1972 Fecal Occult Blood Test 07/23/1999 Sigmoidoscopy 07/23/1999 Cologuard 05/27/2021 05/27/2018, 05/05/2018 Mammogram 08/14/2022 08/14/2021, 11/2020, 06/10/2018, Additional history exists Diabetic Eye Exam 08/24/2022 08/24/2021, , 06/27/2015, Additional history exists COVID-19 Vaccine ( season) 2022 07/04/2021, 12/13/2020, 05/30/2020, Additional history exists Diabetic Foot Exam 02/13/2023 02/13/2022, 05/09/2021 DXA Scan 08/28/2023 08/27/2016 *CXR OR CT FOR COPD EVER 09/14/2023 Albumin/Creatinine Ratio 09/18/2023 023, 05/09/2021, 06/28/2020 Influenza Vaccine (FLU shot) (#1) 2023 11/01/2022, 01/11/2022, 01/12/2021, Additional history exists HbA1c 11/27/2023 05/27/2023, 08/31, 12/03/2021, Additional history exists Colonoscopy 03/30/2024 03/30/2019, 03/04, 03/20/2007 Colorectal Cancer Screening 03/30/2024 Depression Monitoring 04/01/2024 04/01/2023 GFR 09/24/2024 09/25/2023, 08/01, 07/31/2023, Additional history exists O2 ASSESSMENT COMPLETED IN PAST YEAR FOR COPD 09/24/2024 09/25/2023 DTaP,Tdap,and Td Vaccines (2 - Td or Tdap) 06/05/2025 06/06/2015, 08/01/2009 MENINGOCOCCAL (MENACTRA/MENVEO) Aged Out 03/20/2004 No longer eligible based on patient's age to complete this topic Hepatitis C Screening Completed 09/20/2016 RETIRED - COLONOSCOPY-EVERY 5 YRS AGES 18-100 Discontinued 03/30/2019, 03/30/2019, 03/20/2007 Zoster Vaccines Completed 08/27/2019, 03/31/2019 Pneumococcal Vaccine: 65+ Years Completed 02/13/2022, 02/05/2020, 01/17/2005 Lung Cancer Screening Completed 07/19/2022 , 07/06/2021, 04/11/2020, Additional history exists HPV (Gardasil) Vaccine Aged Out No lo nger eligible based on patient's age to complete this topic Hepatitis B Vaccine Aged Out No longe r eligible based on patient's age to complete this topic documented as of this encounter Medical Devices Implanted Type Area Farm Crew Member Device Identifier Shelf Expiration Date Model / Serial / Lot Wire Mailman - [id number] Implanted:Qty: 1 on 06/24/2022 by Natalie Sheffield IV, MD at [facility] [employer] : [place] IV [id number] 12/13/2023 [id number] documented as of this encounter Additional Health Concerns Infection Onset Date Last Indicated Resolved Time MRSA 07/23/2023 07/23/2023 09/21/2023 12:1 9 AM EDT documented as of this encounter Advance Directives * Full Code (Latest Code Status on File) Date Activated Date Inactivated Comments 06/24/2022 3:47 PM 06/25/2022 4:19 PM This order r eflects the patients wishes and were consensually agreed upon. Question Answer Comments Discussion of Advance Directives occurred with: Patient * Full Code Date Activated Date Inactivated Comments 03/10/2018 1:36 PM 03/11/2018 7:22 PM This order ref lects the patients wishes and were consensually agreed upon. Question Answer Comments Discussion of Advance Directives occurred with: Patient Does the patient have a Living Will? No Does the patient have Health Care Power of Attor marylin? No Healthcare Agents on File Name Relationship Healthcare Agent Relationshi p Communication Enid Patel Adult Child Health Care Repr esentative (appointed verbally by patient or by statute hierarchy) Care Teams Rn Cvicu Relationship Specialty Start Date End Date Luz Morales CRNP [address] [place] [address] PCP - General Nurse Practitioner 09/27/20 documented as of this encounter
--- OUTSIDE RECORDS SUMMARY | 2023-10-01 05:29 | External Medical Summary | Summary of Care ---
Author Name Unknown Organization [facility] Address [address] [place] [address] Phone [phone] Care Team Providers Care Repairer Maintenance Building Name Role Phone Luz Moraleslle DONNA Primary Care Provider Reason for Visit * Reason Onset Date Comments case management 09/19/2023 Encounter Details Date Type Department Care Team (Late st Contact Info) Description 09/19/2023 Telephone Care Coordination and Integration [address] [place] [address] Shanti Rodriges RN [address], [place] [phone] case management Allergies Active Allergy Reactions Criticality Noted Date Comments Erythromycin Rash 12/14/1999 Ibuprofen Rash 08/05/2011 Latex Rash 03/20/2007 Latex High 07/24/2022 Other reaction(s): RASH Sulfa Antibiotics Rash 12/14/1999 documented as of this encounter (statuses as of 09/19/2023) Medications Medication Sig Dispensed Refills Start Date End Date Status MULTIVITAMINS PO TABS one tab by mouth daily Active cetirizine (ZYRTEC) 10 MG Tablet Take 1 Tab by mouth daily. 30 Tab 3 01/30/2018 Active Additional Information Patient taking differently:10 mg OralDAILY PRN, Other, allergy symptoms, Indications: allergies, Informant: At Discharge, Reported on 08/30/2022 Nebulizers (NEBULIZER COMPRESSOR) MISCIndications:C OPD, mild (HCC),MCCARTNEY [...] night as directed 118.28 mL 08/30/2022 Active Trelegy Ellipta 200-62.5-25 MCG/ACT Aerosol Powder Breath Activated (Fluticasone-Umec lidinium-Vilanter ol) Inhale 1 Puff by mouth in the morning. 90 Blister Dosing Unit 3 11/01/2022 Active Mounjaro 5 MG/0.5ML Subcutaneous Solution Pen-injector (Tirzepatide) Inject 5 mg under the skin once a week. 6 mL 3 12/02/2022 Active Docusate Sodium 100 MG Oral Capsule [...] Mary ER 10 MEQ Oral Tablet Extended ReleaseIndication s:Edema, unspecified type Take 1 Tablet by mouth once a day on Friday, Friday, and Friday only. 12 Tablet 5 08/06/2023 Active Furosemide 20 MG Oral Tablet (Lasix)Indication s:Edema, unspecified type Take 1 Tablet by mouth once a day on Friday, Friday, and Friday only. 12 Tablet 5 08/06/2023 Active Nucala 100 MG/ML Subcutaneous Solution Auto-injector (Mepolizumab)Jigna cations:Severe persistent asthma without complication Inject 100 mg (1 pen) under the skin every 4 weeks. 1 mL 4 09/01/2023 Active Amantadine HCl 100 MG Oral Capsule (Symmetrel) TAKE 1 CAPSULE BY MOUTH ONCE DAILY FOR PARKINSON 28 Capsule 4 09/09/2023 Active Atorvastatin Calcium 80 MG Oral Tablet (Lipitor) TAKE ONE TAB BY MOUTH DAILY FOR CHOLESTEROL 28 Tablet 4 09/09/2023 Active buPROPion HCl ER (XL) 150 MG Oral Tablet Extended Release 24 Hour (Wellbutrin XL) TAKE ONE TABLET BY MOUTH DAILY. *MOOD* 28 Tablet 4 09/09/2023 Active levETIRAcetam 1000 MG Oral Tablet TAKE ONE TABLET BY MOUTH EVERY 12 HOURS FOR SEIZURES 56 Tablet 09/09/2023 Active Montelukast Sodium 10 MG Oral Tablet (Singulair) TAKE ONE TAB BY MOUTH DAILY FOR ALLERGIES 28 Tablet 4 09/09/2023 Active metFORMIN HCl 500 MG Oral Tablet (Glucophage) TAKE ONE TABLET BY MOUTH 2 TIMES DAILY WITH MEALS FOR DM 180 Tablet 09/09/2023 Active Tamsulosin HCl 0.4 MG Oral Capsule (Flomax) Take 1 Capsule by mouth in the morning. 28 Capsule 4 09/09/2023 Active Gabapentin 100 MG Oral Capsule (Neurontin)Indica tions:Migraine without aura and without status migrainosus, not intractable,Acute ischemic right MCA stroke (HCC),Memory loss Take 1 Capsule by mouth in the morning and 1 Capsule in the evening. 60 Capsule 1 09/09/2023 Active Amiodarone HCl 200 MG Oral Tablet (Cordarone)Indica tions:Persistent atrial fibrillation (HCC) Take 1 Tablet by mouth in the morning. 90 Tablet 3 09/10/2023 Active Losartan Potassium 50 MG Oral Tablet (Cozaar)Indicatio ns:Persistent atrial fibrillation (HCC),HTN, goal below 140/90 Take 1 Tablet by mouth in the morning. 90 Tablet 3 09/10/2023 Active Warfarin Sodium 4 MG Oral Tablet (Coumadin) Take 0.5 to 1 tablet daily as directed by anticoagulation clinic 90 Tablet 1 09/11/2023 Active documented as of this encounter (statuses as of 09/19/2023) Active Problems Problem Noted Date Diagnosed Date Cellulitis of nasal tip 07/23/2023 Aphasia, post-stroke [...] Last Assessment & Plan: Currently residing at [facility]. Ambulating with cane, no falls. Referral placed [...] to monitor. Coronary artery disease invo lving [place] coronary artery of [place] fork heart without angina pectoris 11/01/2022 Migraine without [...] but does not like to wear it. MEDICATION USE AGREEMENT 03/28/2017 Mitral regurgitation 06/13/2015 documented as of this encounter (statuses as of 09/19/2023) Resolved Problems Problem Noted Date Diagnosed Date [...] in the past but not currently on JOBY Continues singulair, zyrtec Mepolizumab monthly Morbid (severe) [...] as of this encounter (statuses as of 09/19/2023) Immunizations Name Administration Dates Next Due COVID-19 mRNA, LNP-s, No Pre serve, 2-Dose Series (Scali) 12/13/2020,05/30/2020,05/02/2020 COVID-19, LNP-s, No Preserve , Keith-sucrose, Ages 12+ (Pfizer) 07/04/2021 Pneumococcal Conjugate Vacci ne, 20-valent ([id number]) 02/13/2022 Pneumococcal Polysaccharide PPV23 (Pneumovax) 02/05/2020 Season [...] encounter Miscellaneous Notes * Telephone Encounter - Shanti Rodriges RN - 09/19/2023 11:36 AM EDT Please [facility] the [facility] from [facility] Device(s)/IVR to be discontinued: PD IVR due to COMPLETION. Thank you. documented in this encounter Plan of Treatment Upcoming Encounters Date Type Department Care Team (Late st Contact Info) Description 09/24/2023 5:45 PM EDT Anticoagulation [facility], Ángel Mclain [address] [place] [address] [place] [address] [facility] [address] [place] [address] 09/25/2023 9:20 AM EDT Office Visit Family Practice [facility] [address] [place] [address] Luz Morales CRNP [address] [place] [address] 03/18/2024 3:00 PM EST Office Visit Sleep Disorders Ctr [facility] [address] [place] [phone] Teresita James DO [address] [place] [address] Scheduled Procedures Name Priority Associated Diagnoses Date/Ti me COLONOSCOPY FLEXIBLE PROXIMA L DIAGNOSTIC Recall History of colonic polyps Health Maintenance Due Date Last Done Comments Alpha-1 Antitrypsin 1972 Fecal Occult Blood Test 07/23/1999 Sigmoidoscopy 07/23/1999 Cologuard 05/27/2021 05/27/2018, 05/05/2018 Mammogram 08/14/2022 08/14/2021, 06/0 11/2020, 06/10/2018, Additional history exists Diabetic Eye Exam 08/24/2022 08/24/2021, , 06/27/2015, Additional history exists COVID-19 Vaccine ( season) 2022 07/04/2021, 12/13/2020, 05/30/2020, Additional history exists Diabetic Foot Exam 02/13/2023 02/13/2022, 05/09/2021 DXA Scan 08/28/2023 08/27/2016 *CXR OR CT FOR COPD EVER 09/14/2023 Albumin/Creatinine Ratio 09/18/202309/17/ 023, 05/09/2021, 06/28/2020 Influenza Vaccine (FLU shot) (#1) 2023 11/01/2022, 01/11/2022, 01/12/2021, Additional history exists HbA1c 11/27/2023 05/27/2023, 08/31, 12/03/2021, Additional history exists Colonoscopy 03/30/2024 03/30/2019, 03/04, 03/20/2007 Colorectal Cancer Screening 03/30/2024 Depression Monitoring 04/01/2024 04/01/2023 GFR 08/19/2024 08/20/2023, 07/03, 05/27/2023, Additional history exists O2 ASSESSMENT COMPLETED IN PAST YEAR FOR COPD 09/07/2024 09/08/2023 DTaP,Tdap,and Td Vaccines (2 - Td or Tdap) 06/05/2025 06/06/2015, 08/01/2009 MENINGOCOCCAL (MENACTRA/MENVEO) Aged Out 03/20/2004 No longer eligible based on patient's age to complete this topic RETIRED - COLONOSCOPY-EVERY 5 YRS AGES 18-100 [...] this encounter Medical Devices Implanted Type Area Revenue Cycle Administrator Device Identifier Shelf Expiration Date Model / Serial / Lot Wire [facility] - [id number] Implanted:Qty: 1 on 06/24/2022 by Natalie Sheffield IV, MD at [facility] [place] [employer] in [place] [employer] : PERIP[place] IV [id number] 12/13/2023 [id number] documented as of this encounter Additional Health Concerns Infection Onset Date Last Indicated Resolved Time MRSA 07/23/2023 07/23/2023 documented as of this encounter Advance Directives [...] patient or by statute hierarchy) Care Teams Repairer Maintenance Building Relationship Specialty Start Date End Date Luz Morales CRNP [address] [place] [address] PCP - General Nurse Practitioner 09/27/20 documented as of this encounter
--- OUTSIDE RECORDS SUMMARY | 2023-10-01 05:29 | External Medical Summary ---
Author Name Unknown Address Unknown Organization [id number]:[facility] - [address] [facility] [address] Laboratory Report Ordering Provider Test Date Status AFSANEH TYSON 09/25/2023 10:41:08 Final Observation Date Value Abnormality Reference (Units ) Status SYNC LEUKOCYTES IN BLOOD BY AUTOMATED COUNT 09/25/2023 10:41:08 6.54 4.00-10.80 (K/uL) Final Segs 09/25/2023 10:41:08 73.0 40.0-75.0 (%) Final Lymphs % 09/25/2023 10:41:08 17.1 Below low normal 18.0-42.0 (%) Final Monos 09/25/2023 10:41:08 8.3 1.0-11.0 (%) Final Eosinophils 09/25/2023 10:41:08 0.5 0.0-6.0 (%) Final Basos 09/25/2023 10:41:08 0.6 0.0-2.0 (%) Final Immature Granulocyte, Percent 09/25/2023 10:41:08 0.5 0.0-2.0 (%) Final Absolute Segs 09/25/2023 10:41:08 4.78 1.80-7.70 (K/uL) Final Lymphs, absolute 09/25/2023 10:41:08 1.12 1.00-4.80 (K/ul) Final Monos, Abs 09/25/2023 10:41:08 0.54 0.00-1.10 (K/uL) Final Eos, Abs 09/25/2023 10:41:08 0.03 0.00-0.70 (K/uL) Final Basos, Abs 09/25/2023 10:41:08 0.04 0.00-0.20 (K/uL) Final Immature Granulocytes, Number 09/25/2023 10:41:08 0.03 0.00-0.20 (K/uL) Final Performing Location [facility] - [facility] [address] [place] [id number]
--- OUTSIDE RECORDS SUMMARY | 2023-10-01 05:29 | External Medical Summary ---
Author Name Unknown Address Unknown Organization [id number]:[facility] [address] [place] [address] Laboratory Report Ordering Provider Test Date Status BROOK DUBOIS 09/25/2023 10:41:08 Final Observation Date Value Abnormality Reference (Units ) Status BUN 09/25/2023 10:41:08 13 6-20 (mg/dL) Final Creatinine 09/25/2023 10:41:08 0.9 0.5-1.0 (mg/dL) Final Glomerular filtration rate/1.73 sq M.predicted [Volume Rate/Area] in Serum, Plasma or Blood by Creatinine-based formula (CKD-EPI) 09/25/2023 10:41:08 67 >=60 (mL/min) Final eGFR is calculated based on the CKD-EPI 2020 equation. Sodium 09/25/2023 10:41:08 140 135-146 (m mol/L) Final Potassium 09/25/2023 10:41:08 4.4 3.5-5.1 (m mol/L) Final Cl 09/25/2023 10:41:08 100 98-107 (mm ol/L) Final CO2 09/25/2023 10:41:08 24 22-32 (mmo l/L) Final Anion gap 09/25/2023 10:41:08 16 Above high normal 7- 15 (mmol/L) Final Glucose 09/25/2023 10:41:08 153 Above high normal 70 -120 (mg/dL) Final Albumin 09/25/2023 10:41:08 4.6 3.8-5.0 (g /dL) Final AST (Aspartate aminotransferase) 09/25/2023 10:41:08 42 Above high normal 10-35 (U/L) Final Alk Phos 09/25/2023 10:41:08 71 35-130 (U/ L) Final Bilirubin, Total 09/25/2023 10:41:08 0.6 <=1 .2 (mg/dL) Final Calcium 09/25/2023 10:41:08 10.0 8.4-10.2 ( mg/dL) Final Protein 09/25/2023 10:41:08 7.1 6.0-8.3 (g /dL) Final ALT (Alanine aminotransferase) 09/25/2023 10:41:08 63 Above high normal 10-35 (U/L) Final Performing Location [facility] [address] [facility] [address]
--- OUTSIDE RECORDS SUMMARY | 2023-10-01 05:29 | External Medical Summary | Summary of Care ---
Author Name Unknown Organization [facility] Address [address] [place] [address] Phone [phone] Care Team Providers [employer] Name Role Phone Luz Morales Primary Care Provider Reason for Referral * Opinion/Recommendation - Change # of Visits to 1 (Within 30 days (routine)) - Authorized Specialty Diagnoses / Procedures Referred By Steven perkins Referred To Contact Neurology Diagnoses Aphasia, post-stroke Hemiplegia and hemiparesis following cerebral infarction affecting right dominant side (HCC) Luz Morales CRNP [address] [place] [address] Referral ID Status Reason Start Date Expiration Date Visits Requested Visits Authorized [id number] Authorized Second Opinion 09/25/[phone] Question Answer Referral Priority Within 30 days (routine) Where should this appointment be scheduled? Ban This patient already has care established with Neurology. Do not place this order. Please use Ask A Doc to expedite care. Acknowledge Is this referral being placed for insurance purposes ONLY Yes * Evaluate & Treat - Unlimited Visits (Within 30 days (routine)) - Authorized Specialty Diagnoses / Procedures Referred By Steven perkins Referred To Contact Ophthalmology Diagnoses Visual disturbance Luz Morales CRNP [address] [place] [address] Referral ID Status Reason Start Date Expiration Date Visits Requested Visits Authorized [id number] Authorized Specialty Services Required 09/25/2023 999 999 Question Answer Referral Priority Within 30 days (routine) Where should this appointment be scheduled? Ban Referring for: Ophthalmology Conditions Ophthalmology Conditions Change in Vision Comments Post stroke Reason for Visit * Reason Comments Return Visit Pt here for 3 mo ret urn, pt here with daughter, [place]. Would like refills for Pulmonary meds and would like referral to see a new Neurologist. Having some eye visual changes, may need to see Optometry per daughter. Encounter Details Date Type Department Care Team (Late st Contact Info) Description 09/25/2023 9:20 AM EDT Office Visit [facility] [address] [place] [id number] Luz Morales CRNP [address] [place] [address] Rash and nonspecific skin eruption*; Aphasia, post-stroke; Hemiplegia and hemiparesis following cerebral infarction affecting right dominant side (HCC); Type 2 diabetes mellitus with hemoglobin A1c goal of less than 8.0% (HCC); Asthma-COPD overlap syndrome ([facility]); Visual disturbance; AN (generalized anxiety disorder); Longstanding persistent atrial fibrillation ([facility]) Allergies Active Allergy Reactions Criticality Noted Date Comments Erythromycin Rash 12/14/1999 Ibuprofen Rash 08/05/2011 Latex Rash 03/20/2007 Latex High 07/24/2022 Other reaction(s): RASH Sulfa Antibiotics Rash 12/14/1999 documented as of this encounter (statuses as of 09/25/2023) Medications Medication Sig Dispensed Refills Start Date End Date Status MULTIVITAMINS PO TABS one tab by mouth daily Active cetirizine (ZYRTEC) 10 MG Tablet Take 1 Tab by mouth daily. 30 Tab 3 01/31/20 Active Additional Information Patient taking differently:10 mg OralDAILY PRN, Other, allergy symptoms, Indications: allergies, Informant: At Discharge, Reported on 08/30/2022 Nebulizers (NEBULIZER COMPRESSOR) MISCIndications: COPD, mild (HCC),MCCARTNEY (dyspnea on exertion),Severe persistent asthma, unspecified whether complicated Inhale via nebulizer. With tubing please. Use as directed. Lifetime need. 1 Each 1 05/14/19 19 Active CPAP every night at bedtime. Auto pap 5-20 cm at bedtime Active Diclofenac Sodium 1 % External Gel (Voltaren) Apply topically to affected area daily. Apply to HANDS DAILY 350 g 1 02/09/20 21 Active Additional Information Patient taking differently:TopicalDAILY PRN, Pain, Apply to HANDS DAILY, Informant: At Discharge, Reported on 08/30/2022 Mupirocin 2 % External Ointment (Bactroban) Apply to the nose twice daily 22 g 4 02/14/20 21 Active Fluocinolone Acetonide Scalp 0.01 % External Oil Apply to scalp once weekly over night as directed 118.28 mL 08/31/19 23 Active Mounjaro 5 MG/0.5ML Subcutaneous Solution Pen-injector (Tirzepatide) Inject 5 mg under the skin once a week. 6 mL 3 12/03/19 23 024 Active Docusate Sodium 100 MG Oral Capsule (Colace) Take 1 Capsule by mouth 2 times a day as needed for Constipation. 180 Capsule 3 04/10/19 24 Active Acetaminophen 325 MG Oral Tablet (Tylenol) Take 2 Tablets by mouth every 6 hours as needed for Pain, Moderate. 100 Tablet 04/15/19 24 Active Albuterol Sulfate HFA 108 (90 Base) MCG/ACT Inhalation Aerosol Solution Inhale 2 Puffs by mouth every 4 hours as needed for Shortness of Breath or Wheezing. 36 g 5 05/27/19 24 Active Potassium Chloride Mary ER 10 MEQ Oral Tablet Extended ReleaseIndicatio ns:Edema, unspecified type Take 1 Tablet by mouth once a day on Friday, Friday, and Friday only. 12 Tablet 5 08/06/19 24 Active Nucala 100 MG/ML Subcutaneous Solution Auto-injector (Mepolizumab)Ind ications:Severe persistent asthma without complication Inject 100 mg (1 pen) under the skin every 4 weeks. 1 mL 4 09/01/19 24 Active Atorvastatin Calcium 80 MG Oral Tablet (Lipitor) TAKE ONE TAB BY MOUTH DAILY FOR CHOLESTEROL 28 Tablet 4 09/09/19 24 Active buPROPion HCl ER (XL) 150 MG Oral Tablet Extended Release 24 Hour (Wellbutrin XL) TAKE ONE TABLET BY MOUTH DAILY. *MOOD* 28 Tablet 4 09/09/19 24 Active levETIRAcetam 1000 MG Oral Tablet TAKE ONE TABLET BY MOUTH EVERY 12 HOURS FOR SEIZURES 56 Tablet 4 09/09/19 24 Active metFORMIN HCl 500 MG Oral Tablet (Glucophage) TAKE ONE TABLET BY MOUTH 2 TIMES DAILY WITH MEALS FOR DM 180 Tablet 09/09/19 24 Active Amiodarone HCl 200 MG Oral Tablet (Cordarone)Indic ations:Persisten t atrial fibrillation (HCC) Take 1 Tablet by mouth in the morning. 90 Tablet 3 09/10/19 24 Active Losartan Potassium 50 MG Oral Tablet (Cozaar)Indicati ons:Persistent atrial fibrillation (HCC),HTN, goal below 140/90 Take 1 Tablet by mouth in the morning. 90 Tablet 3 09/10/19 24 Active Warfarin Sodium 4 MG Oral Tablet (Coumadin) Take 0.5 to 1 tablet daily as directed by anticoagulation clinic 90 Tablet 1 09/11/19 24 Active Additional Information Patient taking differently: Take 0.5 to 1 tablet daily as directed by anticoagulation clinic (on Friday, Friday, and Friday), Reported on 09/25/2023 Warfarin Sodium 2 MG Oral Tablet (Coumadin) Take 1 Tablet by mouth. 1 li on Friday, Friday and Friday09/24/19 24 Active Trelegy Ellipta 200-62.5-25 MCG/ACT Aerosol Powder Breath Activated (Fluticasone-Ume clidinium-Vilant bo) Inhale 1 Puff by mouth in the morning. 90 Blister Dosing Unit 3 09/25/19 24 Active Montelukast Sodium 10 MG Oral Tablet (Singulair) Take 1 Tablet by mouth at bedtime. 90 Tablet 3 09/25/19 24 Active Trelegy Ellipta 200-62.5-25 MCG/ACT Aerosol Powder Breath Activated (Fluticasone-Ume clidinium-Vilant bo) Inhale 1 Puff by mouth in the morning. 90 Blister Dosing Unit 3 11/02/19 23 024 Discontinued(Re fill) Furosemide 20 MG Oral Tablet (Lasix)Indicatio ns:Edema, unspecified type Take 1 Tablet by mouth once a day on Friday, Friday, and Friday only. 12 Tablet 5 08/06/19 24 024 Discontinued Amantadine HCl 100 MG Oral Capsule (Symmetrel) TAKE 1 CAPSULE BY MOUTH ONCE DAILY FOR PARKINSON 28 Capsule 4 09/09/19 24 024 Discontinued Montelukast Sodium 10 MG Oral Tablet (Singulair) TAKE ONE TAB BY MOUTH DAILY FOR ALLERGIES 28 Tablet 4 09/09/19 24 024 Discontinued(Re fill) Tamsulosin HCl 0.4 MG Oral Capsule (Flomax) Take 1 Capsule by mouth in the morning. 28 Capsule 4 09/09/19 24 024 Discontinued Gabapentin 100 MG Oral Capsule (Neurontin)Indic ations:Migraine without aura and without status migrainosus, not intractable,Acut e ischemic right MCA stroke (HCC),Memory loss Take 1 Capsule by mouth in the morning and 1 Capsule in the evening. 60 Capsule 1 09/09/19 24 024 Discontinued documented as of this encounter (statuses as of 09/25/2023) Active Problems Problem Noted Date Diagnosed Date [...] Last Assessment & Plan: Currently residing at [facility]. Ambulating with cane, no falls. Referral placed [...] to monitor. Coronary artery disease invo lving kake coronary artery of kake heart without angina pectoris 11/01/2022 Migraine without [...] as of this encounter (statuses as of 09/25/2023) Resolved Problems Problem Noted Date Diagnosed Date Resolved Date COPD, group B, by GOLD 2017 classification 04/14/2023 09/16/2023 Overview: Per COPD GOLD Classification More specified on pl Severe persistent asthma without complication 03/30/19 24 03/30/2023 Severe persistent asthma without complication 03/30/1903/31/2023 Last Assessment & Plan: Stable on trelegy [...] as of this encounter (statuses as of 09/25/2023) Immunizations Name Administration Dates Next Due COVID-19 mRNA, LNP-s, No Pre serve, 2-Dose Series (InCytu) 12/13/2020,05/30/2020,05/02/2020 COVID-19, LNP-s, No Preserve , Keith-sucrose, Ages 12+ (Pfizer) 07/04/2021 HEP A - Hepatitis A (Adult > 18 yrs) 03/20/2004 IPV - Polio Virus Vaccine (Inact) 03/20/2004 Meningococcal Polysaccharide Vaccine (Menommune) 03/20/2004 PPD 05/25/2003,05/10/2003,07/02/1995 Pneumococcal Conjugate Vacci ne, 20-valent ([id number]) 02/13/2022 Pneumococcal Polysaccharide PPV23 (Pneumovax) 02/05/2020,01/17/2005 Season [...] Sign Reading Time Taken Comments Blood Pressure 132/56 09/25/2023 9:29 AM EDT Pulse 52 09/25/2023 9:29 AM EDT Temperature 36.9 C (98.4 F) 09/25/2023 9:29 AM ED T Respiratory Rate 16 09/25/2023 9:29 AM EDT Oxygen Saturation 98% 09/25/2023 9:29 AM EDT Inhaled Oxygen Concentration - - Weight 77.1 kg (170 lb) 09/25/2023 9:29 AM EDT Height - - Body Mass Index 27.65 09/08/2023 1:58 PM EDT documented in this encounter Functional [...] as of this encounter Progress Notes * Luz Morales CRNP - 09/25/2023 9:34 AM EDT Follow up Family Medicine Visit CC: Chief Complaint Patient presents with Return Visit Pt here for 3 mo return, pt here with daughterEnid. Would like refills for Pulmonary meds andwould like referral to see a new Neurologist. Having some eye visual changes, may need to see Optometry per daughter. History of Present Illness: Kimberly Hernandez is a 68 year old female presenting with her daughter today for 3 month follow up. Working with speech therapy and OT- She is going twice a week. Still feeling very frustrated with communication. Becomes tearful. Still living a [place] and hoping to move home with in home care. Vision is off since stroke if off. Seems like focus is off. Unclear if color is off. In addition medication was refilled on September 08 from [facility] but unclear per neuro notes ifshe is to take it. Since starting this medication she seems to have had increased visual issues. Her daughter is agreeable to stop. Rash on bilateral lower legs. ? Drug rash or venous stasis? Present for at least a month. Not painful or itchy. She does have sulfa allergy and on lasix 3 days per week. 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 [employer] Employer: [employer] Comment: [place] Tobacco Use Smoking status: Former Current packs/day: 0.00 Average packs/day: 0.5 packs/day for 40.0 years (20.0 ttl pk-yrs) Types: Cigarettes Start date: 01/26/1975 Quit date: 01/26/2015 Years since quittin.6 Smokeless tobacco: Never Vaping Use Vaping status: Never Used Substance and Sexual Activity Alcohol use: Yes [...] Not Asked Social History Narrative born in [facility] Social Determinants of Health Financial Resource Strain: Low Risk (03/28/2023) Financial Resource Strain Do you have any trouble paying for your medications, or do you think you might in the future? (Adult - for ages 18 years and over): No Does your family have trouble paying for medicine? (Household - for ages 0-17 years): Not on file Food Insecurity: No Food Insecurity (03/28/2023) Food Insecurity Do you need food for this week? (Adult - for ages 18 years and over): No Are you able to get enough food for your family? (Household - for ages 0-17 years): Not on file Does your family need food this week? (Household - for ages 0-17 years): Not on file Do you always have enough food for your family? (Household - for ages 0-17 years): Not on file Transportation Needs: No Transportation Needs (03/28/2023) Transportation Needs Do you have trouble getting a ride to medical visits or work? (Adult - for ages 18 years and over):Never True Does your family have a hard time getting a ride to doctors visits? (Household - for ages 0-17 years): Not on file Has lack of transportation kept you from medical appointments, meetings, work, or from getting things needed for daily living? Check all that apply. (Adult - for ages 18 years and over): Not on file Do you (or your family) have trouble finding or paying for a ride (transportation)? (Household - for ages 0-17 years): Not on file Social Connections: Socially Integrated (03/28/2023) Social Connections How often do you feel lonely or isolated from those around you? (Adult - for ages 18 years and over): Sometimes Housing Stability: Low Risk (03/28/2023) Housing Stability Do you currently live in a custodial or have no steady place to sleep at night? (Adult - for ages 18 years and over): No Do you think you are at risk of becoming homeless? (Adult - for ages 18 years and over): No Does your family worry about paying for your home or becoming homeless? (Household - for ages 0-17 years): Not on file Are you homeless or worried that you might be in the future? (Adult - for ages 18 years and over): Not on file Are you (or your family) homeless or worried that you might be in the future? (Household - for ages0-17 years): Not on file PMH: Past Medical History: [...] 08/28/2022 Hyperthyroidism 1977 MEDICATION USE AGREEMENT 03/28/2017 Obesity, Class II, BMI 35-39.9, isolated (see actual BMI) 03/30/2023 OSTEOARTHROS NOS-HAND 03/30/2007 Sleep apnea, obstructive Past Surgical History: Procedure Laterality Date APPENDECTOMY W/OTHER PROCEDURE age 29 BREAST BIOPSY Right 04/29/2002 Benign COLONOSCOPY, DIAGNOSTIC (RECTUM) 03/20/2007 repeat in 10 years COLONOSCOPY, DIAGNOSTIC (RECTUM) 03/30/2019 diverticulosis sigmoid colon/biopsies show adenomatous polyps/recall 5 years/COLONOSCOPY FLEXIBLE PROXIMAL DIAGNOSTIC performed by Nancy Moreno DO at [facility] EGD, FLEXIBLE,W/ENDOSCOPIC US 04/19/2022 reflux esophagitis, GB sludge / [facility] ELECTROPHYSIOLOGY EVAL, ATRIAL FIB, PULMONARY VEIN ISOL Bilateral 03/10/2018 ELECTROPHYSIOLOGY EVAL, ATRIAL FIB, PULMONARY VEIN ISOL performed by David Bains MD at [facility] ELECTROPHYSIOLOGY EVAL, ATRIAL FIB, PULMONARY VEIN ISOL Bilateral 06/24/2022 PVI RADIOFREQUENCY CATHETER ABLATION performed by Natalie Sheffield IV, MD at [facility] LAP,ABDOMEN W/ASPIRATE age 29 ovarian cyst Current Outpatient Medications Medication Sig Dispense Refill Warfarin Sodium 2 MG Oral Tablet (Coumadin) Take 1 Tablet by mouth. 1 li on Friday, Friday and Friday Warfarin Sodium 4 MG Oral Tablet (Coumadin) Take 0.5 to 1 tablet daily as directed by anticoagulation clinic (Patient taking differently: Take 0.5 to 1 tablet daily as directed by anticoagulation clinic (on Friday, Friday, and Friday)) 90 Tablet 1 Amiodarone HCl 200 MG Oral Tablet (Cordarone) Take 1 Tablet by mouth in the morning. 90 Tablet 3 Losartan Potassium 50 MG Oral Tablet (Cozaar) Take 1 Tablet by mouth in the morning. 90 Tablet 3 Amantadine HCl 100 MG Oral Capsule (Symmetrel) TAKE 1 CAPSULE BY MOUTH ONCE DAILY FOR PARKINSON 28 Capsule 4 Atorvastatin Calcium 80 MG Oral Tablet (Lipitor) TAKE ONE TAB BY MOUTH DAILY FOR CHOLESTEROL 28 Tablet 4 buPROPion HCl ER (XL) 150 MG Oral Tablet Extended Release 24 Hour (Wellbutrin XL) TAKE ONE TABLET BY MOUTH DAILY. *MOOD* 28 Tablet 4 Gabapentin 100 MG Oral Capsule (Neurontin) Take 1 Capsule by mouth in the morning and 1 Capsule in the evening. 60 Capsule 1 levETIRAcetam 1000 MG Oral Tablet TAKE ONE TABLET BY MOUTH EVERY 12 HOURS FOR SEIZURES 56 Tablet 4 metFORMIN HCl 500 MG Oral Tablet (Glucophage) TAKE ONE TABLET BY MOUTH 2 TIMES DAILY WITH MEALS FORDM 180 Tablet 0 Montelukast Sodium 10 MG Oral Tablet (Singulair) TAKE ONE TAB BY MOUTH DAILY FOR ALLERGIES 28 Tablet 4 Tamsulosin HCl 0.4 MG Oral Capsule (Flomax) Take 1 Capsule by mouth in the morning. 28 Capsule 4 Nucala 100 MG/ML Subcutaneous Solution Auto-injector (Mepolizumab) Inject 100 mg (1 pen) under the skin every 4 weeks. 1 mL 4 Furosemide 20 MG Oral Tablet (Lasix) Take 1 Tablet by mouth once a day on Friday, Friday, and Friday only. 12 Tablet 5 Potassium Chloride Mary ER 10 MEQ Oral Tablet Extended Release Take 1 Tablet by mouth once a day onFriday, Friday, and Friday only. 12 Tablet 5 Albuterol Sulfate HFA 108 (90 Base) MCG/ACT Inhalation Aerosol Solution Inhale 2 Puffs by mouth every 4 hours as needed for Shortness of Breath or Wheezing. 36 g 5 Acetaminophen 325 MG Oral Tablet (Tylenol) Take 2 Tablets by mouth every 6 hours as needed for Pain, Moderate. 100 Tablet 0 Docusate Sodium 100 MG Oral Capsule (Colace) Take 1 Capsule by mouth 2 times a day as needed for Constipation. 180 Capsule 3 Mounjaro 5 MG/0.5ML Subcutaneous Solution Pen-injector (Tirzepatide) Inject 5 mg under the skin once a week. 6 mL 3 Trelegy Ellipta 200-62.5-25 MCG/ACT Aerosol Powder Breath Activated (Njayfpythiv-Tplpirkahilr-Yeekuepxbx) Inhale 1 Puff by mouth in the morning. 90 Blister Dosing Unit 3 Fluocinolone Acetonide Scalp 0.01 % External Oil Apply to scalp once weekly over night as directed 118.28 mL 0 CPAP every night at bedtime. Auto pap 5-20 cm at bedtime MULTIVITAMINS PO TABS one tab by mouth daily Mupirocin 2 % External Ointment (Bactroban) Apply to the nose twice daily 22 g 4 Diclofenac Sodium 1 % External Gel (Voltaren) Apply topically to affected area daily. Apply to HANDS DAILY (Patient taking differently: Apply topically to affected area daily as needed for Pain. Apply to HANDS DAILY) 350 g 1 Nebulizers (NEBULIZER COMPRESSOR) MISC Inhale via nebulizer. With tubing please. Use as directed. Lifetime need. 1 Each 1 cetirizine (ZYRTEC) 10 MG Tablet Take 1 Tab by mouth daily. (Patient taking differently: Take 1 Tablet by mouth daily as needed for Other (allergy symptoms).) 30 Tab 3 No current facility-administered medications for this visit. Review of patient's allergies indicates: Allergen Reactions Latex Other reaction(s): RASH Erythromycin Rash Ibuprofen Rash Latex Rash Sulfa Antibiotics Rash Most Recent Immunizations Administered Date(s) Administered COVID-19 mRNA, LNP-s, No Preserve, 2-Dose Series (InCytu) 12/13/2020 COVID-19, LNP-s, No Preserve, Keith-sucrose, Ages 12+ (InCytu) 07/04/2021 HEP A - Hepatitis A (Adult > 18 yrs) 03/20/2004 IPV - Polio Virus Vaccine (Inact) 03/20/2004 Meningococcal Polysaccharide Vaccine (Menommune) 03/20/2004 Methylprednisolone 04/28/2008 PPD 05/25/2003 Pneumococcal Conjugate Vaccine, 20-valent ([id number]) 02/13/2022 Pneumococcal Polysaccharide PPV23 (Pneumovax) 02/05/2020 Season Influenza, Quad, PF, Adjuvanted, 65+ Yrs, IM (FLUAD) 12/20/2019 Seasonal Influenza Virus Vaccine, Unspecified Formulation 01/01/2018 Seasonal Influenza, PF, 6 M & above, IM , (FluLaval or Fluzone) 12/21/2018 Seasonal Influenza, Quadrivalent Hd (Fluzone Hd) 11/01/2022 Seasonal Influenza, Quadrivalent, No Preserve, IM 01/03/2016 Seasonal Influenza, Quadrivalent, No Preserve, Mdck 12/17/2017 Seasonal Influenza, Split, IIV3, With Preserve, Inj 01/26/2014 TD - Tetanus/Diptheria (ADULT) 08/01/2009 TDAP (age 10 and older)(Boostrix) 06/06/2015 Typhoid Vaccine Oral (Vivotif) 03/20/2004 Zoster Vaccine Recombinant (Shingrix) 08/27/2019 Review of Systems: Review of Systems Constitutional: Negative for chills and diaphoresis. Respiratory: Positive for shortness of breath. Negative for cough and wheezing. With exertion but at baseline Cardiovascular: Positive for palpitations and leg swelling. Negative for chest pain. Persistent a fib Gastrointestinal: Negative for abdominal pain, blood in stool, constipation, diarrhea, nausea and vomiting. Skin: Positive for color change and rash. Neurological: Positive for speech difficulty. Negative for dizziness, tremors, seizures and headaches. Psychiatric/Behavioral: Positive for dysphoric mood. The patient is nervous/anxious. Physical Exam: BP 132/56 | Pulse 52 | Temp 36.9 C (98.4 F) | Resp 16 | Wt 77.1 kg (170 lb) | LMP 11/06/2006 | SpO2 98% | BMI 27.65 kg/m | BSA 1.89 m Physical Exam HENT: Head: Normocephalic. Cardiovascular: Rate and Rhythm: Normal rate. Pulmonary: Effort: Pulmonary effort is normal. Breath sounds: Normal breath sounds. Abdominal: General: Bowel sounds are normal. Palpations: Abdomen is soft. Tenderness: There is no abdominal tenderness. Musculoskeletal: General: Normal range of motion. Neurological: General: No focal deficit present. Mental Status: She is alert and oriented to person, place, and time. Psychiatric: Mood and Affect: Mood is anxious. Affect is tearful. Assessment and Plan: 1. Rash and nonspecific skin eruption Bilateral lower legs Red, macular with petechia- ? Lasix allergy vs amiodorone toxicity Check amiodorone level Stop lasix - CBC WITH WBC DIFFERENTIAL AND ANEMIA REFLEX WORKUP; Future - BASIC METABOLIC PANEL; Future - AMIODARONE; Future 2. Aphasia, post-stroke Ongoing with some progress She is using ipad to communicate and starting to write Currently having SPT and OT 2 days a week Wonder if there is any program for intensive speech therapy 5 days a week? - ADULT NEUROLOGY REFERRAL OP Discontinue gabapentin Discontinue amantidine 3. Hemiplegia and hemiparesis following cerebral infarction affecting right dominant side (HCC) Gait is improved and walking with cane Some ataxia noted on ambulation today - ADULT NEUROLOGY REFERRAL OP 4. Type 2 diabetes mellitus with hemoglobin A1c goal of less than 8.0% (HCC) Stable on mounjaro A1C 5.6 5. Asthma-COPD overlap syndrome (HCC) Stable Continue trelegy Continue singulair Continue nucala Continue albuterol 6. Visual disturbance Increased ? If due to med that she was sent from [facility] - ADULT/PEDS OPHTHALMOLOGY/OPTOMETRY REFERRAL OP 7. AN (generalized anxiety disorder) Stable but tearful due to aphasia Feels very frustrated 8. Longstanding persistent atrial fibrillation (HCC) On amiodarone Rate controlled On warfarin INR therapeutic I have advised the patient to call our office incase of any worsening or new symptoms. I spent a total of 40-54 minutes (exact time 48 mins) on the date of service in preparation, delivery, and documentation of the care provided to Kimberly Hernandez excluding any time spent in the performance of separately billed services. Lillian, MSN, DONNA [facility] documented in this encounter Plan of Treatment Upcoming Encounters Date Type Department Care Team (Late st Contact Info) Description 10/08/2023 5:45 PM EDT Anticoagulation [facility], Ángel Mclain [address] [place] [address] [place] [address] [place] [address] 01/15/2024 7:40 AM EST Office Visit Family Practice [facility] [address] [place] [phone] Luz Morales CRNP [address] [place] [id number] 03/18/2024 3:00 PM EST Office Visit [facility] [address] [place] [phone] Teresita James DO [address] [place] [address] Pending Results Name Type Priority Associated Diagnoses Date /Time CBC WITH WBC DIFFERENTIAL AND ANEMIA REFLEX WORKUP Lab Routine Rash and nonspecific skin eruption 09/25/2023 10:41 AM EDT AMIODARONE Lab Routine Rash and nonspecific skin eruption 09/25/2023 10:41 AM EDT Scheduled Orders Name Type Priority Associated Diagnoses Orde r Schedule CBC WITH WBC DIFFERENTIAL AND ANEMIA REFLEX WORKUP Lab Routine Rash and nonspecific skin eruption Expected: 09/25/2023 (Approximate), Expires: 09/24/2024 AMIODARONE Lab Routine Rash and nonspecific skin eruption Expected: 09/25/2023, Expires: 09/24/2024 Scheduled Procedures Name Priority Associated Diagnoses Date/Ti me COLONOSCOPY FLEXIBLE PROXIMA L DIAGNOSTIC Recall History of colonic polyps Scheduled Referrals Name Type Priority Associated Diagnoses Orde r Schedule ADULT/PEDS OPHTHALMOLOGY/OPTOM ETRY REFERRAL OP Referral Within 30 days (routine) Visual disturbance Ordered: 09/25/2023 ADULT NEUROLOGY REFERRAL OP Referral Within 30 days (routine) Aphasia, post-stroke Hemiplegia and hemiparesis following cerebral infarction affecting right dominant side (HCC) Ordered: 09/25/2023 Health Maintenance Due Date Last Done Comments [...] CT FOR COPD EVER 09/14/2023 Albumin/Creatinine Ratio 09/18/202309/17/2 023, 05/09/2021, 06/28/2020 Influenza Vaccine (FLU shot) [...] this encounter Medical Devices Implanted Type Area School Office Manager Device Identifier Shelf Expiration Date Model / Serial / Lot Wire Mailman - [id number] Implanted:Qty: 1 on 06/24/2022 by Natalie Sheffield IV, MD at [facility] [place] [employer] : PERIPHL IV [id number] 12/13/2023 [id number] documented as of this encounter Visit Diagnoses Diagnosis Rash and nonspecific skin eruption- Primary Rash and other nonspecific skin eruption Aphasia, post-stroke Unspecified cerebral artery occlusion with cerebral infarction Hemiplegia and hemiparesis following cerebral infarction affecting right dominant side (HCC) Type 2 diabetes mellitus with hemoglobin A1c goal of less than 8.0% (HCC) Asthma-COPD overlap syndrome (HCC) Visual disturbance Unspecified visual disturbance AN (generalized anxiety disorder) Generalized anxiety disorder Longstanding persistent atrial fibrillation (HCC) documented in this encounter Advance Directives * Full Code [...] Agents on File Name Relationship Healthcare Agent [facility] Communication Enid Patel Adult Child Health Care Repr esentative (appointed verbally by patient or by statute hierarchy) Care Teams Automotive Window Tinter Relationship Specialty Start Date End Date Luz Morales CRNP [address] [address] PCP - General Nurse Practitioner 09/27/20 documented as of this encounter"
--- OUTSIDE RECORDS SUMMARY | 2023-10-01 05:29 | External Medical Summary ---
Author Name Unknown Address Unknown Organization : Laboratory Report Ordering Provider Test Date Status AFSANEH TYSON 09/25/2023 10:41:08 Final Observation Date Value Abnormality Reference (Units ) Status AMIODARONE 09/25/2023 10:41:08 1.0 Below low normal 1.5-2.5 (mcg/mL) Final DESETHYLAMIODARONE 09/25/2023 10:41:08 1.0 Below low normal 1.5-2.5 (mcg/mL) Final TOXIC: >2.5
Toxic effect s have been observed at levels as low
as 2.0 mcg/mL.
This test was developed and its analytical performance
characteristics have been determined by [facility] [place], [place]. It has
not been cleared or approved by the U.S. Food and Drug
Administration. This assay has been validated pursuant
to the CLIA regulations and is used for clinical
purposes.

Test Performed at:
[facility]
[id number] [facility]
[place], [place]
Alexis Falk M.D., Ph.D.,Director of Laboratories Performing Location
--- OUTSIDE RECORDS SUMMARY | 2023-10-01 05:29 | External Medical Summary | Summary of Care ---
Author Name Unknown Organization [facility] Address [address] [place] [address] Phone [phone] Care Team Providers Care Transformer Assembly Supervisor Name Role Phone Luz Moraleslle DONNA Primary Care Provider Encounter Details Date Type Department Care Team (Late st Contact Info) Description 09/23/2023 Population Health External Data Unspecified Department Allergies Active Allergy Reactions Criticality Noted Date Comments Erythromycin Rash 12/14/1999 Ibuprofen Rash 08/05/2011 Latex Rash 03/20/2007 Latex High 07/24/2022 Other reaction(s): RASH Sulfa Antibiotics Rash 12/14/1999 documented as of this encounter (statuses as of 09/26/2023) Medications Medication Sig Dispensed Refills Start Date [...] 4 weeks. 1 mL 4 09/01/2023 Active Atorvastatin Calcium 80 MG Oral Tablet [...] 12 HOURS FOR SEIZURES 56 Tablet 4 09/09/2023 Active metFORMIN HCl 500 MG Oral Tablet (Glucophage) TAKE ONE TABLET BY MOUTH 2 TIMES DAILY WITH MEALS FOR DM 180 Tablet 09/09/2023 Active Amiodarone HCl 200 MG Oral [...] anticoagulation clinic 90 Tablet 1 09/11/2023 Active Additional Information Patient taking differently: Take 0.5 to 1 tablet daily as directed by anticoagulation clinic (on Friday, Friday, and Friday), Reported on 09/25/2023 documented as of this encounter (statuses as of 09/26/2023) Active Problems Problem Noted Date Diagnosed Date [...] Last Assessment & Plan: Currently residing at [facility]. Ambulating with cane, no falls. Referral placed [...] to monitor. Coronary artery disease invo lving [place] coronary artery of [place] heart without angina pectoris 11/01/2022 Migraine without [...] as of this encounter (statuses as of 09/26/2023) Resolved Problems Problem Noted Date Diagnosed Date Resolved Date COPD, group B, by GOLD 2017 classification 04/14/2023 09/16/2023 Overview: Per COPD GOLD Classification More specified on pl Severe persistent asthma without complication 03/30/19 24 03/30/2023 Severe persistent asthma without complication 03/30/19 03/31/2023 Last Assessment & Plan: Stable on [...] Onychomycosis 08/01/2022 08/28/2022 Hypertensive heart disease w [facility] congestive heart failure 02/01/2022 08/28/2022 Overview: HTN +Concentric L ventricular hypertrophy AN (generalized anxiety disorder) 06/28/2020 08/28/2022 Screening for diabetes mellitus 06/28/2020 08/09/2020 HTN (hypertension) 03/26/2019 Other thyrotoxicosis without thyrotoxic [...] as of this encounter (statuses as of 09/26/2023) Immunizations Name Administration Dates Next Due COVID-19 mRNA, LNP-s, No Pre serve, 2-Dose Series (LawBite) 12/13/2020,05/30/2020,05/02/2020 COVID-19, LNP-s, No Preserve , Keith-sucrose, Ages 12+ (Pfizer) 07/04/2021 Pneumococcal Conjugate Vacci ne, 20-valent ([id number]) 02/13/2022 Pneumococcal Polysaccharide PPV23 (Pneumovax) 02/05/2020 Season [...] Centralized Clinical Pharmacy Services, Ángel Mclain [address] [place] [address] [place] [address] [facility], [address] [place] [address] 01/15/2024 7:40 AM EST Office Visit Family Practice [facility] [address] [place] [address] Luz Morales CRNP [address] [place] [address] 03/18/2024 3:00 PM EST Office Visit Sleep Disorders Ctr [facility] [address] [place] [phone] Teresita James DO [address] [place] [address] Scheduled Procedures Name Priority Associated Diagnoses Date/Ti me COLONOSCOPY FLEXIBLE PROXIMA L DIAGNOSTIC Recall History of colonic polyps Health Maintenance Due Date Last Done Comments Alpha-1 Antitrypsin 1972 Fecal Occult Blood Test 07/23/1999 Sigmoidoscopy 07/23/1999 Cologuard 05/27/2021 05/27/2018, 05/05/2018 Mammogram 08/14/2022 08/14/2021, 0611/2020, 06/10/2018, Additional history exists Diabetic Eye Exam 08/24/2022 08/24/2021, , 06/27/2015, Additional history exists COVID-19 Vaccine (5 - 2023-24 season) 2022 07/04/2021, 12/13/2020, 05/30/2020, Additional history [...] this encounter Medical Devices Implanted Type Area Turn Down Attendant Device Identifier Shelf Expiration Date Model / Serial / Lot Wire Jairo - [id number] Implanted:Qty: 1 on 06/24/2022 by Natalie Sheffield IV, MD at [facility] [place] [employer] : PERIPHL IV [id number] 12/13/2023 [id number] documented as of this encounter Advance Directives [...] patient or by statute hierarchy) Care Teams Transformer Assembly Supervisor Relationship Specialty Start Date End Date Luz Morales CRNP [address] [place] [address] PCP - General Nurse Practitioner 09/27/20 documented as of this encounter
--- OUTSIDE RECORDS SUMMARY | 2023-10-01 05:29 | External Medical Summary | Summary of Care ---
Author Name Unknown Organization [facility] Address [address] [place] [address] Phone [phone] Care Team Providers Care Open Cut Examiner Name Role Phone Luz Morales Christel THOMPSON Primary Care Provider Reason for Visit * Reason Comments Outpatient Testing Encounter Details Date Type Department Care Team (Late st Contact Info) Description 09/25/2023 9:50 AM EDT Laboratory Laboratory, [facility] [address] [place] [address] [facility] [address] [place] [address] Encounter for monitoring diuretic therapy; Rash and nonspecific skin eruption Allergies Active Allergy Reactions Criticality Noted Date [...] mouth. 1 li on Friday, Friday and Friday09/24/2023 Active Trelegy Ellipta 200-62.5-25 MCG/ACT Aerosol Powder Breath Activated (Fluticasone-Umec lidinium-Vilanter ol) Inhale 1 Puff by mouth in the morning. 90 Blister Dosing Unit 3 09/25/2023 Active Montelukast Sodium 10 MG Oral Tablet (Singulair) Take 1 Tablet by mouth at bedtime. 90 Tablet 3 09/25/2023 Active documented as of this encounter (statuses as of 09/25/2023) Active Problems Problem Noted Date Diagnosed Date Visual disturbance 09/25/2023 Cellulitis of nasal tip 07/23/2023 Aphasia, [...] Last Assessment & Plan: Currently residing at [facility]. Ambulating with cane, no falls. Referral [...] to monitor. Coronary artery disease invo lving [place] coronary artery of [place] heart without angina pectoris 11/01/2022 Migraine without [...] (Pfizer) 07/04/2021 Pneumococcal Conjugate Vacci ne, 20-valent ([id number]) 02/13/2022 Pneumococcal Polysaccharide PPV23 (Pneumovax) 02/05/2020 Season [...] Anticoagulation Centralized Clinical Pharmacy Services, Ángel Mclain [address] [place] [address] [place] [address] [place] [address] 01/15/2024 7:40 AM EST Office Visit Family Practice [facility] [address] [address] Luz Morales CRNP [address] [address] 03/18/2024 3:00 PM EST Office Visit Sleep Disorders Ctr [facility] [address] [phone] Teresita James, DO [address] [place] [address] Pending Results Name Type Priority Associated Diagnoses Date /Time COMPREHENSIVE METABOLIC PANEL Lab Routine Encounter for monitoring diuretic therapy 09/25/2023 10:41 AM EDT CBC WITH WBC DIFFERENTIAL AND ANEMIA REFLEX WORKUP Lab Routine Rash and nonspecific skin eruption 09/25/2023 10:41 AM EDT AMIODARONE Lab Routine Rash and nonspecific skin eruption 09/25/2023 10:41 AM EDT ANEMIA CBC Lab Routine Rash and nonspecific skin eruption 09/25/2023 10:41 AM EDT DIFFERENTIAL, AUTOMATED Lab Routine Rash and nonspecific skin eruption 09/25/2023 10:41 AM EDT ANEMIA REFLEX CHEMISTRY HOLD Lab Routine Rash and nonspecific skin eruption 09/25/2023 10:41 AM EDT Scheduled Procedures Name Priority Associated [...] this encounter Medical Devices Implanted Type Area Volcanology Professor Device Identifier Shelf Expiration Date Model / Serial / Lot Wire Mailman - [id number] Implanted:Qty: 1 on 06/24/2022 by Natalie Sheffield IV, MD at [facility] [place] [employer] : PERIPHL KEYSHAWN [id number] 12/13/2023 [id number] documented as of this encounter Visit Diagnoses Diagnosis Encounter for monitoring diuretic therapy Encounter for therapeutic drug monitoring Rash and nonspecific skin eruption Rash and other nonspecific skin eruption documented in this encounter Advance Directives * [...] patient or by statute hierarchy) Care Teams Open Cut Examiner Relationship Specialty Start Date End Date Luz Morales CRNP [address] [address] PCP - General Nurse Practitioner 09/27/20 documented as of this encounter
--- OUTSIDE RECORDS SUMMARY | 2023-10-01 05:29 | External Medical Summary ---
Author Name Unknown Address Unknown Organization K01:[facility] [address] [facility] [address] Laboratory Report Ordering Provider Test Date Status AFSANEH TYSON 09/25/2023 10:41:08 Final Observation Date Value Abnormality Reference (Units ) Status WBC, Total 09/25/2023 10:41:08 6.54 4.00-10.8 0 (K/uL) Final RBC 09/25/2023 10:41:08 4.13 3.85-5.15 (M/uL) Final Hemoglobin 09/25/2023 10:41:08 12.8 12.0-15.3 (g/dL) Final Anemia reflex testing trigge rs on a HGB < 12.0 for Females and HGB < 13.0 for Males in accordance with the WHO Anemia Guidelines
Anemia reflex testing triggers on a HGB < 12.0 for Females and HGB < 13.0 for Males in accordance with the WHO Anemia Guidelines HCT 09/25/2023 10:41:08 40.7 36.0-45.2 (%) Final MCV 09/25/2023 10:41:08 98.5 81.5-97.5 (fL) Final MCH 09/25/2023 10:41:08 31.0 27.0-34.0 (pg) Final MCHC 09/25/2023 10:41:08 31.4 32.0-36.0 (g/dL) Final RDW 09/25/2023 10:41:08 15.1 11.5-15.5 (%) Final Platelets 09/25/2023 10:41:08 268 140-400 (K /uL) Final MPV 09/25/2023 10:41:08 10.5 6.6-11.1 ( fL) Final Nucleated erythrocytes/100 leukocytes [Ratio] in Blood by Automated count 09/25/2023 10:41:08 0 <=0 (/100 WBCs) Fi nal Performing Location [facility] [place] - [address] [facility] [address]
--- OUTSIDE RECORDS SUMMARY | 2023-10-01 05:29 | External Medical Summary | Summary of Care ---
Author Name Unknown Organization [facility] Address [address] [place] [address] Phone [phone] Care Team Providers Care Drama Therapist Name Role Phone Luz Morales Primary Care Provider Reason for Visit * Reason Comments Dosage Adjustment Via Phone (anticoag Cl inic) Encounter Details Date Type Department Care Team (Late st Contact Info) Description 09/24/2023 5:45 PM EDT Anticoagulation Centralized Clinical Pharmacy Services, Ángel Mclain [address] [place] [address] [place] [address] [place] [address] Paroxysmal atrial fibrillation (HCC)*; Hemiplegia and hemiparesis following cerebral infarction affecting right dominant side (HCC) Allergies Active Allergy Reactions Criticality Noted Date Comments Erythromycin Rash 12/14/1999 Ibuprofen Rash 08/05/2011 Latex Rash 03/20/2007 Latex High 07/24/2022 Other reaction(s): RASH Sulfa Antibiotics Rash 12/14/1999 documented as of this encounter (statuses as of 09/24/2023) Medications Medication Sig Dispensed Refills Start Date [...] the skin every 4 weeks. 1 mL 09/01/2023 Active Amantadine HCl 100 MG Oral Capsule (Symmetrel) TAKE 1 CAPSULE BY MOUTH ONCE DAILY FOR [place]ARKIN[place] 28 Capsule 09/09/2023 Active Atorvastatin Calcium 80 MG Oral Tablet (Lipitor) TAKE ONE TAB BY MOUTH DAILY FOR CHOLESTEROL 28 Tablet 09/09/2023 Active buPROPion HCl ER (XL) 150 MG Oral Tablet Extended Release 24 Hour (Wellbutrin XL) TAKE ONE TABLET BY MOUTH DAILY. *MOOD* 28 Tablet 09/09/2023 Active levETIRAcetam 1000 MG Oral Tablet TAKE ONE TABLET BY MOUTH EVERY 12 HOURS FOR SEIZURES 56 Tablet 09/09/2023 Active Montelukast Sodium 10 MG Oral Tablet (Singulair) TAKE ONE TAB BY MOUTH DAILY FOR ALLERGIES 28 Tablet 09/09/2023 Active metFORMIN HCl 500 MG Oral Tablet (Glucophage) TAKE ONE TABLET BY MOUTH 2 TIMES DAILY WITH MEALS FOR DM 180 Tablet 09/09/2023 Active Tamsulosin HCl 0.4 MG Oral Capsule (Flomax) Take 1 Capsule by mouth in the morning. 28 Capsule 09/09/2023 Active Gabapentin 100 MG Oral Capsule (Neurontin)Indica tions:Migraine without aura and without status migrainosus, not intractable,Acute ischemic right MCA stroke (HCC),Memory loss Take 1 Capsule by mouth in the morning and 1 Capsule in the evening. 60 Capsule 1 09/09/2023 Active Amiodarone HCl 200 MG Oral Tablet (Cordarone)Indica tions:Persistent atrial fibrillation (HCC) Take 1 Tablet by mouth in the morning. 90 Tablet 09/10/2023 Active Losartan Potassium 50 MG Oral Tablet (Cozaar)Indicatio ns:Persistent atrial fibrillation (HCC),HTN, goal below 140/90 Take 1 Tablet by mouth in the morning. 90 Tablet 3 09/10/2023 Active Warfarin Sodium 4 MG Oral Tablet (Coumadin) Take 0.5 to 1 tablet daily as directed by anticoagulation clinic 90 Tablet 1 09/11/2023 Active documented as of this encounter (statuses as of 09/24/2023) Active Problems Problem Noted Date Diagnosed Date [...] Last Assessment & Plan: Currently residing at [facility]. Ambulating with cane, no falls. Referral placed [...] to monitor. Coronary artery disease invo lving [place] coronary artery of [place] heart without angina pectoris 11/01/2022 Migraine without [...] as of this encounter (statuses as of 09/24/2023) Resolved Problems Problem Noted Date Diagnosed Date Resolved Date COPD, group B, by GOLD 2017 classification 04/14/2023 09/16/2023 Overview: Per COPD GOLD Classification More specified on pl Severe persistent asthma without complication 03/30/1903/30/2023 Severe persistent asthma without complication 03/30/19 24 [...] left ventricular hypertrophy 01/30/2018 08/28/2022 Centrilobular emphysema 01/30/201804/2021 Incidental pulmonary nodule, > 3mm and < [...] as of this encounter (statuses as of 09/24/2023) Immunizations Name Administration Dates Next Due COVID-19 mRNA, LNP-s, No Pre serve, 2-Dose Series ([employer]) 12/13/2020,05/30/2020,05/02/2020 COVID-19, LNP-s, No Preserve , Keith-sucrose, Ages 12+ (Pfizer) 07/04/2021 Pneumococcal Conjugate Vacci ne, 20-valent ([id number]) 02/13/2022 Pneumococcal Polysaccharide PPV23 (Pneumovax) 02/05/2020 Season [...] as of this encounter Progress Notes * Stephenie Patton, [facility] - 09/24/2023 2:45 PM EDT Medication Therapy Disease Management - Anticoagulation Patient: Kimberly Hernandez | : 1955 [facility] Patient Anticoagulation Encounter Patient is a resident at: [facility] -- Fax sent to number listed above detailing plan of care below. Please notify clinic with any unusual brusing or bleeding, N/V/D, medication or diet changes or anymissed or extra doses of Coumadin. Subjective Patient-Reported Symptoms: Objective Current Warfarin Dose As of 09/24/2023 Warfarin maintenance plan: 2 mg (1 mg x 2) every Mon, Wed, Fri; 4 mg (1 mg x 4) all other days INR Result As of 09/24/2023 INR goal: 2.0-3.0 INR used for dosin.7 (09/24/2023) Assessment & Plan Warfarin Plan As of 09/24/2023 Full warfarin instructions: 2 mg every Mon, Wed, Fri; 4 mg all other days No change documented: Stephenie Patton RPh Next INR check: 10/08/2023 Repeat PT/INR in 2 week(s) Weekly dose: not changed Additional Dosing Information: Description RON Patton RP Clinical Pharmacist 09/24/2023, 2:45 PM * Lis Cross utility service worker - 09/24/2023 2:26 PM EDT Verbal result received from Heidi @ [facility]. Report to be faxed. Thank you, Lis Cross Computer Discovery Teacher Centralized Clinical Pharmacy Services ([facility]) [phone] 09/24/2023,2:27 PM documented in this encounter Plan of Treatment Upcoming Encounters Date Type Department Care Team (Late st Contact Info) Description 09/25/2023 9:20 AM EDT Office Visit Family Practice [facility] [address] [address] Luz Morales CRNP [address] [address] 03/18/2024 3:00 PM EST [facility] [address] [place] [address] [phone] Jacob Teresitatess Pedroza, DO [address] [place] [address] Scheduled Procedures Name Priority Associated Diagnoses Date/Ti [...] this encounter Medical Devices Implanted Type Area Brand Marketing Specialist Device Identifier Shelf Expiration Date Model / Serial / Lot Wire Mailman - [id number] Implanted:Qty: 1 on 06/24/2022 by Natalie Sheffield IV, MD at [facility] [place] [employer] : PERIPHL IV [id number] 12/13/2023 [id number] documented as of this encounter Procedures Procedure Name Priority Date/Time Associated Diagnosis Comments OUTSIDE LAB-PT/INR Routine 09/24/2023 documented in this encounter Results * OUTSIDE LAB-PT/INR (09/24/2023) INR-OUTSIDE LAB 2.7 History Per Patient LABORATORY documented in this encounter Visit Diagnoses Diagnosis Paroxysmal atrial fibrillation (HCC)- Primary Atrial fibrillation Hemiplegia and hemiparesis following cerebral infarction affecting right dominant side (HCC) documented in this encounter Advance Directives [...] Agents on File Name Relationship Healthcare Agent [facility] p Communication Enid Patel Adult Child Health Care Repr esentative (appointed verbally by patient or by statute hierarchy) Care Teams Drama Therapist Relationship Specialty Start Date End Date Luz Morales CRNP [address] [address] PCP - General Nurse Practitioner 09/27/20 documented as of this encounter"
--- OUTSIDE RECORDS SUMMARY | 2023-10-01 05:29 | External Medical Summary | Summary of Care ---
Author Name Unknown Organization [facility] Address [address] [place] [address] Phone [phone] Care Team Providers Care Packager Hand Name Role Phone Lzu Morales Primary Care Provider Encounter Details Date Type Department Care Team (Late st Contact Info) Description 09/29/2023 Telephone [facility] [address] [place] [address] Luz Morales CRNP [address] [place] [address] Allergies Active Allergy Reactions Criticality Noted Date Comments Erythromycin Rash 12/14/1999 Ibuprofen Rash 08/05/2011 Latex Rash 03/20/2007 Latex High 07/24/2022 Other reaction(s): RASH Sulfa Antibiotics Rash 12/14/1999 documented as of this encounter (statuses as of 09/29/2023) Medications Medication Sig Dispensed Refills Start Date [...] as of this encounter (statuses as of 09/29/2023) Active Problems Problem Noted Date Diagnosed Date [...] Last Assessment & Plan: Currently residing at [facility]. Ambulating with cane, no falls. Referral placed [...] to monitor. Coronary artery disease invo lving [place] coronary artery of [place] heart without angina pectoris 11/01/2022 Migraine without [...] as of this encounter (statuses as of 09/29/2023) Resolved Problems Problem Noted Date Diagnosed Date Resolved Date COPD, group B, by GOLD 2017 classification 04/14/2023 09/16/2023 Overview: Per COPD GOLD Classification More specified on pl Severe persistent asthma without complication 03/30/1903/30/2023 Severe persistent asthma without complication 03/30/1903/31/2023 Last Assessment & Plan: Stable on trelegy Has rescue inhaler. Discussed nebulizer--she refuses this. It appears she had xopenex on med list in the past but not currently on [facility] Continues singulair, zyrtec Mepolizumab monthly Morbid (severe) [...] as of this encounter (statuses as of 09/29/2023) Immunizations Name Administration Dates Next Due COVID-19 mRNA, LNP-s, No Pre serve, 2-Dose Series ([employer]) 12/13/2020,05/30/2020,05/02/2020 COVID-19, LNP-s, No Preserve , Keith-sucrose, Ages 12+ (Pfizer) 07/04/2021 Pneumococcal Conjugate Vacci ne, 20-valent ([id number]) 02/13/2022 Pneumococcal Polysaccharide PPV23 (Pneumovax) 02/05/2020 Season [...] encounter Miscellaneous Notes * Telephone Encounter - Luz Morales CRNP - 09/29/2023 2:12 PM EDT Left message for patient daughter CBC, BMP normal LFT borderline elevated. Amiodorone level slightly low. Lillian, MSN, DONNA [facility] documented in this encounter Plan of Treatment Upcoming Encounters Date Type Department Care Team (Late st Contact Info) Description 10/08/2023 5:45 PM EDT Anticoagulation [facility], Ángel Mclain [address] [place] [address] [place] [address] [place] [address] 01/15/2024 7:40 AM EST Office Visit Family Practice [facility] [address] [place] [address] Luz Morales CRNP [address] [place] [address] 03/18/2024 3:00 PM EST Office Visit Sleep Disorders Ctr [facility] [address] [place] [phone] Teresita James, [address] [place] [address] Scheduled Procedures Name Priority Associated Diagnoses Date/Ti [...] this encounter Medical Devices Implanted Type Area Honey Extractor Device Identifier Shelf Expiration Date Model / Serial / Lot Wire Mailman - [id number] Implanted:Qty: 1 on 06/24/2022 by Natalie Sheffield IV, MD at [facility] SCIENTIFIC : PERIPHL IV [id number] 12/13/2023 [id number] documented as of this encounter Advance Directives [...] Agents on File Name Relationship [facility] Communication Enid Patel Adult Child Health Care Repr esentative (appointed verbally by patient or by statute hierarchy) Care Teams Packager Hand Relationship Specialty Start Date End Date Luz Morales CRNP [address] [place] [address] PCP - General Nurse Practitioner 09/27/20 documented as of this encounter
--- OUTSIDE RECORDS SUMMARY | 2023-10-01 05:29 | External Medical Summary | Summary of Care ---
Author Name Unknown Organization [facility] Address [address] [place] [address] Phone [phone] Care Team Providers Care Assistant Technician Name Role Phone Luz Moraleslle DONNA Primary Care Provider Encounter Details Date Type Department Care Team (Late st Contact Info) Description 09/24/2023 Result Scan Unspecified Department Milagro Valladares, [facility] [address] [place] [address] <No scans attached> Allergies Active Allergy Reactions Criticality Noted Date [...] FOR SEIZURES 56 Tablet 4 09/09/2023 Active Montelukast Sodium 10 MG Oral [...] Last Assessment & Plan: Currently residing at [facility]. Ambulating with cane, no falls. Referral [...] to monitor. Coronary artery disease invo lving [place] coronary artery of [place] heart without angina pectoris 11/01/2022 Migraine without [...] Onychomycosis 08/01/2022 08/28/2022 Hypertensive heart disease [facility] congestive heart failure 02/01/2022 08/28/2022 Overview: [...] mRNA, LNP-s, No Pre serve, 2-Dose Series ([employer]) 12/13/2020,05/30/2020,05/02/2020 COVID-19, LNP-s, No Preserve , Keith-sucrose, Ages 12+ (Pfizer) 07/04/2021 Pneumococcal Conjugate Vacci ne, 20-valent ([id number]) 02/13/2022 Pneumococcal Polysaccharide PPV23 (Pneumovax) 02/05/2020 Season [...] Anticoagulation [facility], Ángel Mclain [address] [place] [address] [place] [address] [place] [address] Paroxysmal atrial fibrillation (HCC)*; Hemiplegia and hemiparesis following cerebral infarction affecting right dominant side (HCC) 09/25/2023 9:20 AM EDT Office Visit [facility] [address] [place] [address] Luz Morales CRNP [address] [place] [address] 03/18/2024 3:00 PM EST Office Visit Sleep Disorders Ctr [facility] [address] [place] [phone] Teresita James, DO [address] [place] [address] Scheduled Procedures Name Priority Associated Diagnoses Date/Ti [...] this encounter Medical Devices Implanted Type Area Sheet Metal Erector Device Identifier Shelf Expiration Date Model / Serial / Lot Wire Mailman - [id number] Implanted:Qty: 1 on 06/24/2022 by Natalie Sheffield IV, MD at [facility] [employer] SCIENTIFIC : PERIPHL IV [id number] 12/13/2023 [id number] documented as of this encounter Procedures Procedure Name Priority Date/Time Associated Diagnosis Comments OUTSIDE LAB RESULTS 09/24/2023 documented in this encounter Results * OUTSIDE LAB RESULTS (09/24/2023) 09/24/2023 Milagro Valladares [facility] LAB[facility]ORY documented in this encounter Advance Directives * [...] Agents on File Name Relationship Healthcare Agent [facility] Communication Enid Patel Adult Child Health Care Repr esentative (appointed verbally by patient or by statute hierarchy) Care Teams Assistant Technician Relationship Specialty Start Date End Date Luz Morales CRNP [address] [place] [address] PCP - General Nurse Practitioner 09/27/20 documented as of this encounter
--- OUTSIDE RECORDS SUMMARY | 2023-10-01 05:29 | External Medical Summary | Summary of Care ---
Author Name Unknown Organization [facility] Address [address] [place] [address] Phone [phone] Care Team Providers Care Senior Sales Associate Name Role Phone Luz Morales Primary Care Provider Reason for Referral * Opinion/Recommendation - Change # of Visits to 1 (Within 30 days (routine)) - Authorized Specialty Diagnoses / Procedures Referred By Steven perkins Referred To Contact Neurology Diagnoses Aphasia, post-stroke Hemiplegia and hemiparesis following cerebral infarction affecting right dominant side (HCC) Luz Morales CRNP [address] [place] [address] Referral ID Status Reason Start Date Expiration Date Visits Requested Visits Authorized [id number] Authorized Second Opinion 09/25/2023 999 999 Question [...] Ophthalmology Diagnoses Visual disturbance Luz Morales CRNP [address] [employer] [place] [address] Referral ID Status Reason Start Date Expiration Date Visits Requested Visits Authorized [id number] Authorized Specialty Services Required 09/25/2023 999 999 [...] Description 09/25/2023 9:20 AM EDT Office Visit [facility] [address] [place] [address] Luz Morales CRNP [address] [place] [address] Rash and nonspecific skin eruption*; Aphasia, post-stroke; Hemiplegia and hemiparesis following cerebral infarction affecting right dominant side (HCC); Type 2 diabetes mellitus with hemoglobin A1c goal of less than 8.0% (HCC); Asthma-COPD overlap syndrome ([facility]); Visual disturbance; AN (generalized anxiety disorder); Longstanding persistent atrial fibrillation ([facility]) Allergies Active Allergy Reactions Criticality Noted Date [...] Last Assessment & Plan: Currently residing at [facility]. Ambulating with cane, no falls. [...] to monitor. Coronary artery disease invo lving [place] coronary artery of [place] heart without angina pectoris 11/01/2022 Migraine without [...] COMA 03/06/2000 08/28/2022 Overview: Follow with Dr. aZbala Was told she was in remission CLASSICAL MIGRAINE WITHOU ME NTION OF INTRACTABLE MIGRAINE 03/06/2000 08/28/2022 Major depressive disorder Overview: ICD-10 update of inactive term documented as of this encounter (statuses as of 09/25/2023) Immunizations Name Administration Dates Next Due COVID-19 mRNA, LNP-s, No Pre serve, 2-Dose Series ([employer]) 12/13/2020,05/30/2020,05/02/2020 COVID-19, LNP-s, No Preserve , Keith-sucrose, Ages 12+ (Pfizer) 07/04/2021 Pneumococcal Conjugate Vacci ne, 20-valent ([id number]) 02/13/2022 Pneumococcal Polysaccharide PPV23 (Pneumovax) 02/05/2020 Season [...] medication was [facility] but unclear per neuro notes ifshe [...] Occupational History 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 [employer] Employer: [employer] Comment: [place] Tobacco Use Smoking status: Former Current packs/day: [...] Not Asked Social History Narrative born in [facility] Social Determinants of Health Financial Resource Strain: [...] Stability Do you currently live in a residential or have no steady place to sleep [...] Moreno DO at [facility] EGD, FLEXIBLE,W/ENDOSCOPIC US 04/19/2022 reflux esophagitis, GB sludge / [facility] ELECTROPHYSIOLOGY EVAL, ATRIAL FIB, PULMONARY VEIN ISOL Bilateral 03/10/2018 ELECTROPHYSIOLOGY EVAL, ATRIAL FIB, PULMONARY VEIN ISOL performed by David Bains MD at [facility] ELECTROPHYSIOLOGY EVAL, ATRIAL FIB, PULMONARY VEIN ISOL Bilateral 06/24/2022 PVI RADIOFREQUENCY CATHETER ABLATION performed by Natalie Sheffield IV, MD at [facility] LAP,ABDOMEN W/ASPIRATE age 29 ovarian cyst Current [...] Ellipta 200-62.5-25 MCG/ACT Aerosol Powder Breath Activated (Cjdnhuchgox-Uzlfkclkshqh-Abthfcihfm) Inhale 1 Puff by mouth in the [...] COVID-19 mRNA, LNP-s, No Preserve, 2-Dose Series ([employer]) 12/13/2020 COVID-19, LNP-s, No Preserve, Keith-sucrose, Ages 12+ (Pfizer) 07/04/2021 HEP A - Hepatitis A (Adult > 18 yrs) 03/20/2004 IPV - Polio Virus Vaccine (Inact) 03/20/2004 Meningococcal Polysaccharide Vaccine ([employer]) 03/20/2004 Methylprednisolone 04/28/2008 PPD 05/25/2003 Pneumococcal Conjugate Vaccine, 20-valent ([id number]) 02/13/2022 Pneumococcal Polysaccharide PPV23 (Pneumovax) 02/05/2020 Season [...] to med that she was sent from [facility] - ADULT/PEDS OPHTHALMOLOGY/OPTOMETRY REFERRAL OP 7. AN [...] [facility] documented in this encounter Plan of Treatment Upcoming Encounters Date Type Department Care Team (Late st Contact Info) Description 10/08/2023 5:45 PM EDT Anticoagulation Centralized Clinical Pharmacy Services, Ángel Mclain [address] [place] [address] [place] [address] [place] [address] 01/15/2024 7:40 AM EST Office Visit Family Practice [facility] [address] [place] [address] Luz Morales CRNP [address] [place] [phone] 03/18/2024 3:00 PM EST Office Visit Sleep Disorders Ctr [facility] [address] [place] [phone] Teresita James DO [address] [place] [address] Pending Results Name Type Priority Associated Diagnoses [...] this encounter Medical Devices Implanted Type Area Ginner Device Identifier Shelf Expiration Date Model / Serial / Lot Wire Mailman - [id number] Implanted:Qty: 1 on 06/24/2022 by Natalie Sheffield IV, MD [place] [facility] [employer] SCIENTIFIC : PERIPHL KEYSHAWN [id number] 12/13/2023 [id number] documented as of this encounter Visit Diagnoses [...] or by statute hierarchy) Care Teams Senior Sales Associate Relationship Specialty Start Date End Date Luz Morales CRNP [address] [place] [address] PCP - General Nurse Practitioner 09/27/20 documented as of this encounter"
--- OUTSIDE RECORDS SUMMARY | 2023-10-01 05:30 | External Medical Summary | Summary of Care ---
Author Name Unknown Organization [facility] Address [address] [place] [address] Phone [phone] Care Team Providers Care Racecar Driver Name Role Phone Luz Morales Primary Care Provider Reason for Visit * Reason Comments Dosage Adjustment Via Phone (anticoag Cl inic) Encounter Details Date Type Department Care Team (Late st Contact Info) Description 09/17/2023 5:45 PM EDT Anticoagulation [facility], Ángel Mclain [address] [place] [address] [place] [address] [place] [address] Paroxysmal atrial fibrillation (HCC)*; Hemiplegia and hemiparesis following cerebral infarction affecting right dominant side (HCC) Allergies Active Allergy Reactions Criticality Noted Date Comments Erythromycin Rash 12/14/1999 Ibuprofen Rash 08/05/2011 Latex Rash 03/20/2007 Latex High 07/24/2022 Other reaction(s): RASH Sulfa Antibiotics Rash 12/14/1999 documented as of this encounter (statuses as of 09/17/2023) Medications Medication Sig Dispensed Refills Start Date [...] as of this encounter (statuses as of 09/17/2023) Active Problems Problem Noted Date Diagnosed Date [...] Last Assessment & Plan: Currently residing at [facility]. Ambulating with cane, no falls. Referral [...] to monitor. Coronary artery disease invo lving [place] coronary artery of [place] heart without angina pectoris 11/01/2022 Migraine without [...] as of this encounter (statuses as of 09/17/2023) Resolved Problems Problem Noted Date Diagnosed Date [...] as of this encounter (statuses as of 09/17/2023) Immunizations Name Administration Dates Next Due COVID-19 mRNA, LNP-s, No Pre serve, 2-Dose Series ([facility]) 12/13/2020,05/30/2020,05/02/2020 COVID-19, LNP-s, No Preserve , Keith-sucrose, Ages 12+ (Pfizer) 07/04/2021 Pneumococcal Conjugate Vacci ne, 20-valent ([id number]) 02/13/2022 Pneumococcal Polysaccharide PPV23 (Pneumovax) 02/05/2020 Season [...] as of this encounter Progress Notes * Milagro Valladares, [facility] - 09/17/2023 3:14 PM EDT Medication Therapy Disease Management - Anticoagulation Patient: Kimberly Hernandez | : 1955 Usp/SNF Patient Anticoagulation Encounter Patient is a resident at: [facility] -- Fax sent to number listed above detailing plan of care below. Please notify clinic with any unusual brusing or bleeding, N/V/D, medication or diet changes or anymissed or extra doses of Coumadin. Subjective Patient-Reported Symptoms: Objective Current Warfarin Dose As of 09/17/2023 Warfarin maintenance plan: 2 mg (1 mg x 2) every Mon, Wed, Fri; 4 mg (1 mg x 4) all other days INR Result As of 09/17/2023 INR goal: 2.0-3.0 INR used for dosin.9 (09/17/2023) Assessment & Plan Warfarin Plan As of 09/17/2023 Full warfarin instructions: 2 mg every Mon, Wed, Fri; 4 mg all other days No change documented: Milagro Valladares RPh Next INR check: 09/24/2023 Repeat PT/INR in 1 week(s) Weekly dose: not changed Additional Dosing Information: Milagro Valladares RPh Clinical Pharmacist 09/17/2023, 3:14 PM * Lis Cross senior network systems engineer - 09/17/2023 2:19 PM EDT Verbal result received from Heidi @ [facility]. Report is being faxed. Thank you, Lis Cross Metal Furniture Assembler [facility] ([facility]) [phone] 09/17/2023,2:20 PM documented in this encounter Plan of Treatment Upcoming Encounters Date Type Department Care Team (Late st Contact Info) Description 09/22/2023 10:30 AM EDT Office Visit Cardiology, [facility] [address] [place] [address] Sukhdev Freedman PA-C [address] [place] [address] 09/25/2023 9:20 AM EDT Office Visit Family Practice [facility] [address] [place] [address] Luz Morales, CHROMOSOMAL DISORDERS COUNSELOR [address] [place] [address] 03/18/2024 3:00 PM EST Office Visit Sleep Disorders Ctr [facility] [address] [place] [phone] Teresita James, [address] [place] [address] Scheduled Procedures Name Priority Associated Diagnoses Date/Ti [...] this encounter Medical Devices Implanted Type Area Supervisor Vat House Device Identifier Shelf Expiration Date Model / Serial / Lot Wire Mailman - [id number] Implanted:Qty: 1 on 06/24/2022 by Natalie Sheffield IV, MD at [facility] [place] SCIENTIFIC : PERIPHL KEYSHAWN [id number] 12/13/2023 [id number] documented as of this encounter Procedures Procedure Name Priority Date/Time Associated Diagnosis Comments OUTSIDE LAB-PT/INR Routine 09/17/2023 documented in this encounter Results * OUTSIDE LAB-PT/INR (09/17/2023) INR-OUTSIDE LAB 2.9 History Per Patient LABORATORY documented in this encounter Visit Diagnoses Diagnosis Paroxysmal atrial fibrillation (HCC)- Primary Atrial fibrillation Hemiplegia and hemiparesis following cerebral infarction affecting right dominant side (HCC) documented in this encounter Additional Health Concerns Infection Onset [...] Agents on File Name Relationship Healthcare Agent Relationsca p Communication Enid Patel Adult Child Health Care Repr esentative (appointed verbally by patient or by statute hierarchy) Care Teams Racecar Driver Relationship Specialty Start Date End Date Luz Morales CRNP [address] [place] [address] PCP - General Nurse Practitioner 09/27/20 documented as of this encounter"
[2023-10-01 06:00] LABS: Basophils # (auto) 0.03 K/uL (0.00-0.20); Basophils % (auto) 0.5 %; Eosinophils # (auto) 0.04 K/uL (0.00-0.50); Eosinophils % (auto) 0.7 %; Hematocrit (blood only) 39.9 % (37.0-47.0); Hemoglobin 13.2 g/dl (12.0-16.0); Immature Granulocytes # (auto) 0.05 K/uL (0.01-0.20); Immature Granulocytes % (auto) 0.8 %; Lymphocytes # (auto) 1.43 K/uL (1.20-3.40); Lymphocytes % (auto) 23.4 %; Mean Corpuscular Hemoglobin 30.8 pg (25.0-34.0); Mean Corpuscular Hgb Conc 33.1 g/dL (32.0-36.0); Mean Corpuscular Volume 93.2 fL (80.0-100.0); Mean Platelet Volume 9.6 fL (9.4-12.4); Monocytes # (auto) 0.68 K/uL (0.11-0.59); Monocytes % (auto) 11.1 %; Neutrophils # (auto) 3.88 K/uL (1.40-6.50); Neutrophils % (auto) 63.5 %; Platelet Count 267 K/uL (130-400); RDW Coefficient of Variation 15.1 % (11.5-14.5); RDW Standard Deviation 51.6 fL (36.4-46.3); Red Blood Count 4.28 M/uL (4.20-5.40); White Blood Count 6.11 K/ul (4.8-10.8)
[2023-10-01 06:22] LABS: Alanine Aminotransferase 111 U/L (7-52); Albumin Level 4.5 gm/dl (3.4-5.0); Alkaline Phosphatase 60 U/L (34-104); Anion Gap 11 (3-11); BUN Creatinine Ratio 15.2 (10-20); Bilirubin,Total 0.8 mg/dl (0.2-1.0); Blood Urea Nitrogen 17 mg/dl (6-23); Calcium 9.6 mg/dl (8.6-10.3); Carbon Dioxide 25 mmol/L (21-32); Chloride 101 mmol/L (98-107); Creatinine Clr Calc Pharmacy 47.8 ml/min; Est GFR (Non-African American) 50.1 ml/min; Glucose 95 mg/dl (70-99(Fasting)); Lipase 16 U/L (11-82); Sodium 137 mmol/L (136-145); Total Protein 7.3 gm/dl (6.0-8.3)
--- NOTE | 2023-10-01 06:49 | XRay Report ---
XR chest 1V portable CLINICAL HISTORY: chest pain TECHNIQUE: Single frontal radiograph of the chest was obtained. Comparison: Comparison is made to chest radiograph 01/30/2023 FINDINGS: No lines and tubes are seen. Cardiomegaly is noted. The aortic arch is calcified. The lungs are clear . No evidence of pleural effusion or pneumothorax. IMPRESSION: No acute chest disease. ACT 112: Negative or not required by law. Electronically signed by: Chong Cook M.D. 10/01/2023 6:47 AM
--- NOTE | 2023-10-01 07:14 | Emergency Department Note ---
ED Provider Note History of Present Illness Chief Complaint: Altered Mental Status Stated Complaint: AMS Time Seen by Provider: 10/01/23 06:35 Source: EMS, RN notes reviewed, old records reviewed and other (caregivers at [facility]) Mode of arrival: EMS Limitations: language barrier (aphasic) and altered mental status Patient is a 68-year-old with past med history significant for type 2 diabetes, hyperlipidemia, asthma- COPD overlap syndrome, obstructive sleep apnea, persistent atrial fibrillation, nonischemic cardiomyopathy, history of CVA, mitral regurgitation, atherosclerosis of coronary artery, morbid obesity, migraine without aura, depression with anxiety who presents to the ED from [facility] for emotional distress and aggressive behavior. EMS states that [facility] staff reported patient was hitting herself in the chest and head repeatedly. Talking to the patient bedside, patient has expressive aphasia d/t previous CVA. Able to follow commands and able to answer yes or no questions. Patient has an ipad to communicate. When asked what is her name, patient is able to point to her name on her iPad. Patient points to her chest when asked about pain. Majority of history obtained from EMS staff and nursing staff. Sister at bedside, states there was significant change in mental status over the past week. She states that she saw the patient on Friday, did have some bowel incontinence. Home Medications Medication Instructions Recorded Confirmed Type fluticasone fur. 200 mcg-umeclid 1 inh inhalation .DAILY@0800 01/23/23 10/01/23 History 62.5 mcg-vilant 25 mcg inhalat.powder (Trelegy Ellipta) losartan 50 mg tablet 50 mg PO .DAILY@0800 01/23/23 10/01/23 History metformin 500 mg tablet 500 mg PO .DAILY@0800,1700 01/23/23 10/01/23 History montelukast 10 mg tablet 10 mg PO .DAILY@0800 01/23/23 10/01/23 History tirzepatide 2.5 mg/0.5 mL 5 mg subcut .@0800 ON Mondays01/23/23 10/01/23 History subcutaneous pen injector (Harsh) acetaminophen 325 mg tablet 650 mg PO Q6H PRN Pain 10/01/23 10/01/23 History albuterol sulfate 90 mcg/actuation 2 puff inhalation Q4H PRN 10/01/23 10/01/23 History aerosol inhaler SOB/WHEEZING amiodarone 200 mg tablet 200 mg PO .DAILY@79910/01/23 10/01/23 History atorvastatin 80 mg tablet 80 mg PO .DAILY@79910/01/23 10/01/23 History bupropion HCl 150 mg 24 hr tablet, 150 mg PO .DAILY@79910/01/23 10/01/23 History extended release docusate sodium 100 mg capsule 100 mg PO BID PRN Constipation 10/01/23 10/01/23 History (Colace) levetiracetam 1,000 mg tablet 1,000 mg PO .DAILY@08,199910/01/23 10/01/23 History (Keppra) mepolizumab 100 mg/mL subcutaneous 1 mg subcut .@0800 Q 4 WEEKS 10/01/23 10/01/23 History auto-injector (Nucala) potassium chloride 10 mEq 10 meq PO .@0800 MON,FRI,Fri10/01/23 10/01/23 History tablet,extended release(part/cryst) warfarin 2 mg tablet 2 mg PO .@1700 MON,FRI,Fri10/01/23 10/01/23 History warfarin 4 mg tablet 4 mg PO .@1700 SETHI,TU,PRESLEY,SAT 10/01/23 10/01/23 History Allergies Allergy/AdvReac Type Severity Reaction Status Date / Time erythromycin base Allergy Severe Rash Verified 08/15/22 15:20 Sulfa (Sulfonamide Allergy Severe Rash Verified 08/15/22 15:20 Antibiotics) aspirin Allergy Intermediate Rash Verified 08/15/22 15:20 latex Allergy Intermediate RASH Verified 08/15/22 15:20 Past Med/Surg History Problem List (Updated 10/01/23 @ 14:07 by Va Falk MD) Aphasia (Acute) Cholelithiasis (Acute) Agitation (Acute) Cholelithiasis Morbid obesity HTN (hypertension) Acute ischemic left MCA stroke Tachycardia-bradycardia syndrome Encephalopathy Symptomatic bradycardia Required emergent intubation Seizure-like activity Paroxysmal atrial fibrillation Acute CVA (cerebrovascular accident) (Acute) Dyslipidemia Acute right MCA stroke Hypomagnesemia Sleep apnea CPAP T2DM (type 2 diabetes mellitus) Involuntary movements Stroke-like symptoms (Acute) Environmental allergies (Chronic) Atrial fibrillation with RVR (Acute) Pulmonary nodule (Chronic) Encounter for pre-operative examination HLD (hyperlipidemia) (Chronic) Atrial fibrillation (Chronic) follows with Dr. Romero--on eliquis/metoprolol/amiodarone HTN (hypertension) (Chronic) H/O migraine (Chronic) Hepatitis C (Chronic) IN REMISSION ADD (attention deficit disorder) (Chronic) Mitral regurgitation (Chronic) Medical History Urinary retention Left ventricular systolic dysfunction (LVSD) History of dynamic ventricular outflow tract obstruction No significant LV outflow tract obstruction noted on resting ECHO 11/2021 per cardio records COPD (chronic obstructive pulmonary disease) Per records Cardiomyopathy Tachycardiac vs idopathic CM (EF 48% in 2018- improved to 55% in 11/2021). Negative nuclear stress test 2017 and 01/2022 Morbid obesity with BMI of 40.0-44.9, adult Prediabetes per pt reason for metformin On anticoagulant therapy eliquis daily Hyperthyroidism RADIOACTIVE IODINE TREATMENT Depression Cardiac murmur Asthma inhaler daily/nebulizer prn Surgical History History of esophagogastroduodenoscopy (EGD) with EUS @ [facility] 04/19/22 History of tooth extraction History of cardiac radiofrequency ablation x2--last 06/24/22 @ [facility] [place] Hx of breast biopsy History of appendectomy History of colonoscopy History of cardioversion x4--last 07/24/22---follows with Dr. 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 [employer] Analytics Required: No Beliefs That Will Affect Care: None Current Living Situation: Alone Feels Safe at Home: Yes Assistive Devices: Cane Physical Exam Vital Signs Vital Signs - 24 hr 10/01/23 05:16 10/01/23 05:33 10/01/23 05:33 Temperature 36.8 C Temperature Source Oral Pulse Rate 66 68 Pulse Rate [Right Finger] Pulse Rate from SpO2 Sensor Pulse Rhythm Regular Pulse Strength Normal Respiratory Rate 26 H Respiratory Effort / Characteristics Non-Labored Spontaneous Respiratory Depth Normal Respiratory Pattern Regular Blood Pressure 155/83 H Blood Pressure [Right Arm] Blood Pressure Mean 107 Blood Pressure Mean [Right Arm] Blood Pressure Position Lying Pulse Oximetry 94 93 Oxygen Delivery Method Room Air Room Air Sepsis Recent Fever Within 48 Hours No Sepsis New/Unexplained Change in Mental Status N/A Sepsis Action Taken by Nursing No Action Required 10/01/23 05:36 10/01/23 05:42 10/01/23 06:03 Temperature Temperature Source Pulse Rate 65 67 60 Pulse Rate [Right Finger] Pulse Rate from SpO2 Sensor 65 63 61 Pulse Rhythm Pulse Strength Respiratory Rate 19 15 21 Respiratory Effort / Characteristics Respiratory Depth Respiratory Pattern Blood Pressure 155/83 H Blood Pressure [Right Arm] Blood Pressure Mean 107 Blood Pressure Mean [Right Arm] Blood Pressure Position Pulse Oximetry 93 96 95 Oxygen Delivery Method Room Air Sepsis Recent Fever Within 48 Hours Sepsis New/Unexplained Change in Mental Status Sepsis Action Taken by Nursing 10/01/23 06:12 10/01/23 06:21 10/01/23 06:30 Temperature Temperature Source Pulse Rate 61 60 59 L Pulse Rate [Right Finger] Pulse Rate from SpO2 Sensor 61 61 59 L Pulse Rhythm Pulse Strength Respiratory Rate 19 20 18 Respiratory Effort / Characteristics Respiratory Depth Respiratory Pattern Blood Pressure 124/70 Blood Pressure [Right Arm] Blood Pressure Mean 88 Blood Pressure Mean [Right Arm] Blood Pressure Position Pulse Oximetry 94 95 95 Oxygen Delivery Method Sepsis Recent Fever Within 48 Hours Sepsis New/Unexplained Change in Mental Status Sepsis Action Taken by Nursing 10/01/23 06:42 10/01/23 06:51 10/01/23 07:10 Temperature Temperature Source Pulse Rate 60 60 Pulse Rate [Right Finger] Pulse Rate from SpO2 Sensor 60 60 Pulse Rhythm Pulse Strength Respiratory Rate 23 20 Respiratory Effort / Characteristics Respiratory Depth Respiratory Pattern Blood Pressure Blood Pressure [Right Arm] Blood Pressure Mean Blood Pressure Mean [Right Arm] Blood Pressure Position Pulse Oximetry 97 94 95 Oxygen Delivery Method Room Air Room Air Sepsis Recent Fever Within 48 Hours Sepsis New/Unexplained Change in Mental Status Sepsis Action Taken by Nursing 10/01/23 07:16 10/01/23 09:00 10/01/23 09:33 Temperature Temperature Source Pulse Rate 70 Pulse Rate [Right Finger] 63 66 Pulse Rate from SpO2 Sensor Pulse Rhythm Pulse Strength Respiratory Rate 22 18 Respiratory Effort / Characteristics Non-Labored Respiratory Depth Normal Respiratory Pattern Blood Pressure Blood Pressure [Right Arm] 125/108 H 128/75 Blood Pressure Mean Blood Pressure Mean [Right Arm] 113 92 Blood Pressure Position Pulse Oximetry 95 95 Oxygen Delivery Method Room Air Room Air Sepsis Recent Fever Within 48 Hours Sepsis New/Unexplained Change in Mental Status Sepsis Action Taken by Nursing 10/01/23 11:00 10/01/23 12:45 10/01/23 13:31 Temperature Temperature Source Pulse Rate 61 Pulse Rate [Right Finger] 69 61 Pulse Rate from SpO2 Sensor Pulse Rhythm Pulse Strength Respiratory Rate 20 18 Respiratory Effort / Characteristics Non-Labored Non-Labored Respiratory Depth Normal Normal Respiratory Pattern Blood Pressure Blood Pressure [Right Arm] 141/67 H 164/80 H Blood Pressure Mean Blood Pressure Mean [Right Arm] 91 108 Blood Pressure Position Pulse Oximetry 95 96 Oxygen Delivery Method Room Air Room Air Sepsis Recent Fever Within 48 Hours Sepsis New/Unexplained Change in Mental Status Sepsis Action Taken by Nursing Constitutional: 68-year-old female, chronically ill-appearing, tearful and anxious. HEENT: NCAT, no conjunctival injection CV: regular rhythm, no murmur appreciated, extremities well-perfused, no LE edema Resp: CTABL, no wheezes/rales/rhonchi appreciated, no increased work of breathing GI: soft, nondistended, tender throughout, BS normoactive MSK: no gross deformities appreciated Skin: warm, dry, no rash appreciated Neuro: expressive aphasia. Moves all 4 extremities equally. Able to point and click on the iPad without difficulty. Course Administered Medications Discontinued Medications Ceftriaxone Sodium (Rocephin) 2,000 mg in 50 mls @ 100 mls/hr IV NOW ONE Stop: 10/01/23 12:59 Last Infusion: 10/01/23 13:11 Dose: Infused Documented By: Admin: 10/01/23 12:40 Dose: 100 mls/hr Documented By: CLAUDETTE Metronidazole (Flagyl) 500 mg in 100 mls @ 100 mls/hr IV NOW ONE Stop: 10/01/23 13:29 Last Admin: 10/01/23 13:11 Dose: 100 mls/hr Documented By: CLAUDETTE Lorazepam (Lorazepam 1 Mg/1 Ml Syr Ed Inj Use) 0.5 mg IV ONE STA Stop: 10/01/23 08:23 Last Admin: 10/01/23 08:50 Dose: 0.5 mg Documented By: CLAUDETTE Medical Decision Making Differential Diagnosis CVA, MD, sepsis, UTI, cholecystitis, pancreatitis, GERD, respiratory illness, among others. Medical Records Attestation: I reviewed the patient's medical records. Home Medications was personally reviewed by me Laboratory Data Attestation: I reviewed the patient's lab results. 10/01/23 05:37 10/01/23 06:35 Lab Results 10/01/23 10/01/23 10/01/23 Range/Units 05:37 06:35 07:37 WBC 6.11 (4.8-10.8) K/ul RBC 4.28 (4.20-5.40) M/uL Hgb 13.2 (12.0-16.0) g/dl Hct 39.9 (37.0-47.0) % MCV 93.2 (80.0-100.0) fL MCH 30.8 (25.0-34.0) pg MCHC 33.1 (32.0-36.0) g/dL RDW Std Deviation 51.6 H (36.4-46.3) fL RDW Coeff of Yeyo 15.1 H (11.5-14.5) % Plt Count 267 (130-400) K/uL MPV 9.6 (9.4-12.4) fL Immature Gran % (Auto) 0.8 % Neut % (Auto) 63.5 % Lymph % (Auto) 23.4 % Boone % (Auto) 11.1 % Eos % (Auto) 0.7 % Baso % (Auto) 0.5 % Neut # (Auto) 3.88 (1.40-6.50) K/uL Lymph # (Auto) 1.43 (1.20-3.40) K/uL Boone # (Auto) 0.68 H (0.11-0.59) K/uL Eos # (Auto) 0.04 (0.00-0.50) K/uL Baso # (Auto) 0.03 (0.00-0.20) K/uL Immature Gran # (Auto) 0.05 (0.01-0.20) K/uL PT (9.0-12.0) Seconds INR (0.9-1.1) Sodium 137 (136-145) mmol/L Potassium TNP 3.9 Chloride 101 (98-107) mmol/L Carbon Dioxide 25 (21-32) mmol/L Anion Gap 11 (3-11) BUN 17 (6-23) mg/dl Creatinine 1.12 (0.6-1.2) mg/dl Est Cr Clr Drug Dosing 47.8 ml/min Est GFR ( Amer) 58.0 ml/min Est GFR (Non-Af Amer) 50.1 ml/min BUN/Creatinine Ratio 15.2 (10-20) Glucose 95 (70-99(Fasting)) mg/dl Calcium 9.6 (8.6-10.3) mg/dl Total Bilirubin 0.8 (0.2-1.0) mg/dl Direct Bilirubin TNP 0.1 AST TNP 72 H ALT 111 H (7-52) U/L Alkaline Phosphatase 60 (34-104) U/L Troponin I High Sens (0-14) pg/ml Total Protein 7.3 (6.0-8.3) gm/dl Albumin 4.5 (3.4-5.0) gm/dl Lipase 16 (11-82) U/L Urine Color Urine Appearance (Clear) Urine pH (4.5-7.5) Ur Specific Simms (1.000-1.030) Urine Protein (Negative) Urine Glucose (UA) (Negative) Urine Ketones (Negative) Urine Blood (Negative) Urine Nitrite (Negative) Urine Bilirubin (Negative) Urine Urobilinogen (Negative) Ur Leukocyte Esterase (Negative) SARS-CoV-2 (PCR) NEGATIVE (Negative) Influenza Type A (PCR) Negative (Neg) Influenza Type B (PCR) Negative (Neg) RSV (RT-PCR) Negative (Neg) 10/01/23 10/01/23 10/01/23 Range/Units 07:50 08:35 09:38 WBC (4.8-10.8) K/ul RBC (4.20-5.40) M/uL Hgb (12.0-16.0) g/dl Hct (37.0-47.0) % MCV (80.0-100.0) fL MCH (25.0-34.0) pg MCHC (32.0-36.0) g/dL RDW Std Deviation (36.4-46.3) fL RDW Coeff of Yeyo (11.5-14.5) % Plt Count (130-400) K/uL MPV (9.4-12.4) fL Immature Gran % (Auto) % Neut % (Auto) % Lymph % (Auto) % Boone % (Auto) % Eos % (Auto) % Baso % (Auto) % Neut # (Auto) (1.40-6.50) K/uL Lymph # (Auto) (1.20-3.40) K/uL Boone # (Auto) (0.11-0.59) K/uL Eos # (Auto) (0.00-0.50) K/uL Baso # (Auto) (0.00-0.20) K/uL Immature Gran # (Auto) (0.01-0.20) K/uL PT 34.0 H (9.0-12.0) Seconds INR 3.5 H (0.9-1.1) Sodium (136-145) mmol/L Potassium Chloride (98-107) mmol/L Carbon Dioxide (21-32) mmol/L Anion Gap (3-11) BUN (6-23) mg/dl Creatinine (0.6-1.2) mg/dl Est Cr Clr Drug Dosing ml/min Est GFR ( Amer) ml/min Est GFR (Non-Af Amer) ml/min BUN/Creatinine Ratio (10-20) Glucose (70-99(Fasting)) mg/dl Calcium (8.6-10.3) mg/dl Total Bilirubin (0.2-1.0) mg/dl Direct Bilirubin AST ALT (7-52) U/L Alkaline Phosphatase (34-104) U/L Troponin I High Sens 32.2 H 33.5 H (0-14) pg/ml Total Protein (6.0-8.3) gm/dl Albumin (3.4-5.0) gm/dl Lipase (11-82) U/L Urine Color Yellow Urine Appearance Clear (Clear) Urine pH 5.5 (4.5-7.5) Ur Specific Simms 1.016 (1.000-1.030) Urine Protein Negative (Negative) Urine Glucose (UA) Negative (Negative) Urine Ketones Trace H (Negative) Urine Blood Negative (Negative) Urine Nitrite Negative (Negative) Urine Bilirubin Negative (Negative) Urine Urobilinogen Negative (Negative) Ur Leukocyte Esterase Negative (Negative) SARS-CoV-2 (PCR) (Negative) Influenza Type A (PCR) (Neg) Influenza Type B (PCR) (Neg) RSV (RT-PCR) (Neg) Imaging Data Attestation: I personally reviewed and interpreted this imaging study as follows: My Impression: Chest x-ray to my interpretation reveals cardiomegaly without evidence of focal lung consolidation or failure, otherwise defer to radiology's over read. Radiologist's Impression: Chest X-Ray 10/01/23 06:20 XR chest 1V portable CLINICAL HISTORY: chest pain TECHNIQUE: Single frontal radiograph of the chest was obtained. Comparison: Comparison is made to chest radiograph 01/30/2023 FINDINGS: No lines and tubes are seen. Cardiomegaly is noted. The aortic arch is calcified. The lungs are clear. No evidence of pleural effusion or pneumothorax. IMPRESSION: No acute chest disease. ACT 112: Negative or not required by law. Electronically signed by: Chong Cook M.D. 10/01/2023 6:[address] 10/01/23 07:23 CT head/brain wo con CLINICAL HISTORY: AMS Technique: Contiguous axial CT images of the head were acquired from the base of the skull to the vertex without intravenous contrast administration. Images were viewed in brain, subdural and bone windows. Automated dose lowering techniques and/or adjustment according to patient size were utilized for this exam. Comparison: None available at the time of this dictation. Findings: Old infarcts are seen in the bilateral frontal lobes. No acute abnormalities are seen. Imaged portions of the paranasal sinuses and mastoid air cells are clear. The orbits appear normal. There are no acute fractures of the calvaria or scalp swelling. Impression: No acute intracranial hemorrhage, no evidence of acute territorial infarction or other acute intracranial disease process. ACT 112: Negative or not required by law. Electronically signed by: Chong Cook M.D. 10/01/2023 8:30 AM Liver Ultrasound 10/01/23 10:55 ABDOMINAL ULTRASOUND, RIGHT UPPER QUADRANT HISTORY: eleavted AST ALT with CP. COMPARISON: Abdomen and pelvis CT 08/15/2022. FINDINGS: Pancreas: The pancreatic tail is obscured by overlying bowel gas. The remaining portions of the pancreas are within normal limits. Liver: Unremarkable. Gallbladder: The gallbladder is mildly distended. Gallbladder wall is top normal in thickness measuring 2.7 mm. There are few small stones and sludge within the gallbladder. The technologist reported a positive sonographic Clark sign. Therefore, these findings raise the possibility of an early acute cholecystitis. CBD: 7 mm. This is at the upper limits of normal for the patient's age. Right kidney: No hydronephrosis. IMPRESSION: 1. A few small stones and sludge within the gallbladder which is mildly distended. The technologist reported a positive sonographic Clark sign. Therefore, this raises the possibility of an early acute cholecystitis. Consider follow-up nuclear medicine HIDA scan for further evaluation. 2. The common bile duct is at the upper limits of normal measuring 7 mm. ACT 112: Negative or not required by law. Electronically signed by: Alexis Herzog M.D. 10/01/2023 12:01 PM MDM Narrative Patient is a 68-year-old with past med history significant for type 2 diabetes, hyperlipidemia, asthma- COPD overlap syndrome, obstructive sleep apnea, persistent atrial fibrillation, nonischemic cardiomyopathy, history of CVA with expressive aphasia, mitral regurgitation, atherosclerosis of coronary artery, morbid obesity, migraine without aura, depression with anxiety who presents to the ED with chest pain and altered mental status. Majority of history had to be obtained from EMS and nursing. Call was placed to pt's daughter who is away on vacation. -Patient has lost 29kg since January. -VSS, CBC benign, no leukocytosis, hemoglobin of 13.2. -CMP significant for a AST of 72 and a ALT of 111. Sodium and potassium are normal. Lipase normal. -RUQ US was significant for sludge and a few small stones, mild distension, + Arlington sign, recommend HIDA -Patient on warfarin, INR at 3.5 -Chest x-ray showed cardiomegaly, no acute chest disease. -EKG showed changes, no acute changes, no ST elevations, not in a fib -Head CT negative for any acute changes. Did show old infarcts in the bilateral frontal lobes. -COVID/RSV/flu screen negative -UA with trace protein, otherwise unremarkable -trop initially 32.2, repeat of 33.5 -Ativan 0.5mg given, on reevaluation patient complaining of hand pain. Impression Agitation, Cholelithiasis, Aphasia Discharge Plan Visit Data Chief Complaint: Altered Mental Status Stated Complaint: AMS ED Provider: Va Falk Discharge Problem: Agitation, Cholelithiasis, Aphasia Forms Stand Alone Forms: My [facility] Prescriptions Prescriptions: No Action losartan 50 mg tablet 50 mg PO .DAILY@0800 metformin 500 mg tablet 500 mg PO .DAILY@0800,1700 montelukast 10 mg tablet 10 mg PO .DAILY@0800 Trelegy Ellipta 200-62.5-25 mcg blister with device 1 inh INHALATION .DAILY@0800 Mounjaro 2.5 mg/0.5 mL pen injector 5 mg SUBCUT .@0800 ON MONDAYS acetaminophen 325 mg Tablet 650 mg PO Q6H MDD 3GMS APAP/24H PRN (Reason: Pain) warfarin 4 mg tablet 4 mg PO .@1700 SETHI,,PRESLEY,SAT warfarin 2 mg tablet 2 mg PO .@1700 MON,FRI,FRI docusate sodium [Colace] 100 mg Capsule 100 mg PO BID PRN (Reason: Constipation) albuterol sulfate 90 mcg/actuation HFA aerosol inhaler 2 puff INHALATION Q4H PRN (Reason: SOB/WHEEZING) potassium chloride 10 mEq tablet,ER particles/crystals 10 meq PO .@08 MON,FRI,FRI Nucala 100 mg/mL Auto-Injector 1 mg SUBCUT .@0800 Q 4 WEEKS Rx Instructions: on day 15 atorvastatin 80 mg tablet 80 mg PO .DAILY@0800 amiodarone 200 mg tablet 200 mg PO .DAILY@0800 bupropion HCl 150 mg tablet extended release 24 hr 150 mg PO .DAILY@0800 levetiracetam [Keppra] 1,000 mg tablet 1,000 mg PO .DAILY@799,1999 Referrals Referrals: Garret Perry MD [Primary Care Provider] - Discharge Problem: Cholelithiasis Qualifiers: Cholelithiasis location: gallbladder Cholecystitis presence: with cholecystitis Cholecystitis acuity: acute Biliary obstruction: without biliary obstruction Q ualified Code(s): K80.00 - Calculus of gallbladder with acute cholecystitis without obstruction
[2023-10-01 07:17] LABS: Bilirubin Direct 0.1 mg/dl (0-0.2); Potassium 3.9 mmol/L (3.5-5.1)
[2023-10-01 08:30] LABS: INR 3.5 (0.9-1.1)
[2023-10-01 08:30] LABS: Influenza A virus by PCR Negative (Neg); Influenza B virus by PCR Negative (Neg); RSV by PCR Negative (Neg); SARS CoV2 RNA(COVID-19) Ceph NEGATIVE (Negative)
--- NOTE | 2023-10-01 08:32 | CT Scan Report ---
CT head/brain wo con CLINICAL HISTORY: AMS Technique: Contiguous axial CT images of the head were acquired from the base of the skull to the kristyn price without intravenous contrast administration. Images were viewed in brain, subdural and bone [facility] ws. Automated dose lowering techniques and/or adjustment according to patient size were utilized for this exam. Comparison: None available at the time of this dictation. Findings: Old infarcts are seen in the bilateral frontal lobes. No acute abnormalities are seen. Imaged portions of the paranasal sinuses and mastoid air cells are clear. The orbits appear normal. There are no acute fractures of the calvaria or scalp swelling. Impression: No acute intracranial hemorrhage, no evidence of acute territorial infarction or other acute intracra nial disease process. ACT 112: Negative or not required by law. Electronically signed by: Chong Cook M.D. 10/01/2023 8:30 AM
[2023-10-01] MEDS: LORazepam 1 MG/1 ML SYR ED Inj Use IV STA (08:50)
[2023-10-01 09:03] LABS: Appearance Urine Clear (Clear); Bilirubin Urine Negative (Negative); Blood Urine Negative (Negative); Color Urine Yellow; Glucose Urine UA Negative (Negative); Ketones Urine Trace (Negative); Leukocyte Esterase Urine Negative (Negative); Nitrite Urine Negative (Negative); Protein Urine Negative (Negative); Specific Gravity Urine 1.016 (1.000-1.030); Urobilinogen Urine Negative (Negative); pH Urine 5.5 (4.5-7.5)
--- NOTE | 2023-10-01 12:03 | Ultrasound Report ---
ABDOMINAL ULTRASOUND, RIGHT UPPER QUADRANT HISTORY: eleavted AST ALT with CP. COMPARISON: Abdomen and pelvis CT 08/15/2022. FINDINGS: Pancreas: The pancreatic tail is obscured by overlying bowel gas. The remaining portions of the pancr eas are within normal limits. Liver: Unremarkable. Gallbladder: The gallbladder is mildly distended. Gallbladder wall is top normal in thickness measuri ng 2.7 mm. There are few small stones and sludge within the gallbladder. The technologist reported a positive sonographic Clark sign. Therefore, these findings raise the possibility of an early acute c holecystitis. CBD: 7 mm. This is at the upper limits of normal for the patient's age. Right kidney: No hydronephrosis. IMPRESSION: 1. A few small stones and sludge within the gallbladder which is mildly distended. The technologist r eported a positive sonographic Clark sign. Therefore, this raises the possibility of an early acute cholecystitis. Consider follow-up nuclear medicine HIDA scan for further evaluation. 2. The common bile duct is at the upper limits of normal measuring 7 mm. ACT 112: Negative or not required by law. Electronically signed by: Alexis Herzog M.D. 10/01/2023 12:01 PM
[2023-10-01] MEDS: cefTRIAXone SODIUM 2,000 MG/50 ML BAG IV ONE (12:40)
--- NOTE | 2023-10-01 12:43 | History & Physical Report ---
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 Upon further investigation patient was trying to communicate chest discomfort. Patient reports some nausea and had some loose stools earlier in the week per staff. No noted fever/chills. In ER patient afebrile, vitals stable. No leukocytosis. T bili: 0.8, AST: 72, A LT: 111, Lipase WNL. UA unremarkable Liver US: A few small stones and sludge within the gallbladder which is mildly distended. The technologist reported a positive sonographic Clark sign. The common bile duct is at the upper limits of normal measuring 7 mm. CXR: No acute infiltrate CT Head: no acute intracranial abnormality In ER she was given Ativan 0.5mg IV, Rocephin 2GM IV and Flagyl 500mg IV. Upon my evaluation in ER patient denies CP, SOB, abdominal pain. Noted mild tenderness to palpation RUQ on exam NPO for now [facility] General surgery consult. Discussed with cardiac rehabilitation program director and recommend HIDA scan CBC, CMP, INR in am (2) Elevated troponin: Plan: Troponin: 32-->33. EKG some T wave flattening lead III, avf per my interpretation Denies current CP, SOB Monitor on telemetry Repeat EKG in am Will trend troponin If troponins uptrending or recurrent CP consider echo, and or cardiology consult Outpatient chart review: 09/08/2023 echo: EF: 60-64%, LV wall thickness mildly increased, left atrium severely enlarged, grade 2 diastolic dysfunction, mild aortic valve sclerosis, mild MR, mild TR, no evidence of pulmonary hypertension (3) CVA (cerebral vascular accident): Plan: History CVA with residual expressive aphasia Patient has tablet to assist in communication Fall precautions Continue atorvastatin. Hold warfarin for now (4) Atrial fibrillation: Plan: Anticoagulated on warfarin Current sinus rhythm INR: 3.5 Hold warfarin INR in AM Continue amiodarone (5) T2DM (type 2 diabetes mellitus): Plan: A1c: 5.6 on 05/27/23 Hold home metformin, Mounjaro Novolog sliding scale correction per protocol A1c in AM (6) HTN (hypertension): Plan: Continue losartan (7) HLD (hyperlipidemia): Plan: Continue atorvastatin (8) COPD (chronic obstructive pulmonary disease): (9) Asthma: Plan: No signs exacerbation On Nucala Continue home inhalers, montelukast. Albuterol neb prn (10) Seizure disorder: Plan: Denies recent seizure like activity Continue levetiracetam (11) Depression: Plan: History Depression, anxiety Continue bupropion DVT Prophylaxis INR: 3.5. SCDs for now Admit med/tele Spoke with patient's daughter Dr Enid Patel on phone to give update of patient and condition. . (She is currently out of state on vacation but would like update of patient) DNR/DNI as per discussion with patient's daughter Dr Enid Patel who is also POA. Follows with Luz THOMPSON for routine care Pt was seen and care coordinated with Dr Adler. See addendum I spent a total of 78 minutes reviewing notes, outpatient records, labs, medication, coordinating, documenting and providing care for this patient excluding time spent in the performance of separately billed services. History of Present Illness Chief Complaint: "Hitting self" Primary Care Provider: Garret Perry MD Patient is a 68-year-old female with PMH CVA with residual expressive aphasia, HTN, HLD, CAD, atrial fibrillation anticoagulated on warfarin, pulmonary hypertension, DM II, asthma, COPD, LILI, seizure disorder, depression, anxiety who presented to ER from [facility] with c/o patient "hitting herself" this morning. Spoke to staff who reports early this morning patient was hitting her phone and then was hitting herself in head with phone and hitting her chest. Seems patient became frustrated this morning as she could not communicate well per [facility] staff which is not uncommon however hitting herself is out of the ordinary. Staff report there was no aggression towards others. Staff states no medications today. Staff reports had 2-3 loose stools daily recently but denies diarrhea and didn't have BM today that they are aware of. They are unaware of any fever/chills, vomiting, cough, or noted SOB. Staff report patient has normal diet but foods are cut up. They haven't noted any choking episodes. Upon ER arrival it is reported patient seemed agitated but was then later determined patient appeared frustrated that couldn't communicate and pointed to chest as source of pain. In ER she was given Ativan 0.5mg IV, Rocephin 2GM IV and Flagyl 500mg IV. Upon my evaluation in ER patient shakes her head "no" when asked if having chest pain or abdominal pain. She says "yes" to nausea but denies vomiting, VANESSA, SOB, extremity edema, rhinorrhea, sore throat. Outpatient chart review: 09/08/2023 echo: EF: 60-64%, LV wall thickness mildly increased, left atrium s everely enlarged, grade 2 diastolic dysfunction, mild aortic valve sclerosis, mild MR, mild TR, no evidence of pulmonary hypertension Allergies Allergy/AdvReac Type Severity Reaction Status Date / Time erythromycin base Allergy Severe Rash Verified 08/15/22 15:20 Sulfa (Sulfonamide Allergy Severe Rash Verified 08/15/22 15:20 Antibiotics) aspirin Allergy Intermediate Rash Verified 08/15/22 15:20 latex Allergy Intermediate RASH Verified 08/15/22 15:20 Home Medications Medication Instructions Recorded Confirmed Type fluticasone fur. 200 mcg-umeclid 1 inh inhalation .DAILY@0800 01/23/23 10/01/23 History 62.5 mcg-vilant 25 mcg inhalat.powder (Trelegy Ellipta) losartan 50 mg tablet 50 mg PO .DAILY@0801/23/23 10/01/23 History metformin 500 mg tablet 500 mg PO .DAILY@0800,1700 01/23/23 10/01/23 History montelukast 10 mg tablet 10 mg PO .DAILY@0801/23/23 10/01/23 History tirzepatide 2.5 mg/0.5 mL 5 mg subcut .@0800 ON Mondays01/23/23 10/01/23 History subcutaneous pen injector (Harsh) acetaminophen 325 mg tablet 650 mg PO Q6H PRN Pain 10/01/23 10/01/23 History albuterol sulfate 90 mcg/actuation 2 puff inhalation Q4H PRN 10/01/23 10/01/23 History aerosol inhaler SOB/WHEEZING amiodarone 200 mg tablet 200 mg PO .DAILY@79910/01/23 10/01/23 History atorvastatin 80 mg tablet 80 mg PO .DAILY@79910/01/23 10/01/23 History bupropion HCl 150 mg 24 hr tablet, 150 mg PO .DAILY@79910/01/23 10/01/23 History extended release docusate sodium 100 mg capsule 100 mg PO BID PRN Constipation 10/01/23 10/01/23 History (Colace) levetiracetam 1,000 mg tablet 1,000 mg PO .DAILY@08,199910/01/23 10/01/23 History (Keppra) mepolizumab 100 mg/mL subcutaneous 1 mg subcut .@0800 Q 4 WEEKS 10/01/23 10/01/23 History auto-injector (Nucala) potassium chloride 10 mEq 10 meq PO .@0800 MON,FRI,Fri10/01/23 10/01/23 History tablet,extended release(part/cryst) warfarin 2 mg tablet 2 mg PO .@1700 MON,FRI,Fri10/01/23 10/01/23 History warfarin 4 mg tablet 4 mg PO .@1700 SETHI,TU,PRESLEY,SAT 10/01/23 10/01/23 History Past Med/Surg History Problem List (Updated 10/01/23 @ 14:38 by Florence Garcia PA-C) Seizure disorder Depression Asthma inhaler daily/nebulizer prn COPD (chronic obstructive pulmonary disease) Per records CVA (cerebral vascular accident) Elevated troponin Aphasia (Acute) Cholelithiasis (Acute) Agitation (Acute) Cholelithiasis Morbid obesity HTN (hypertension) Acute ischemic left MCA stroke Tachycardia-bradycardia syndrome Encephalopathy Symptomatic bradycardia Required emergent intubation Seizure-like activity Paroxysmal atrial fibrillation Acute CVA (cerebrovascular accident) (Acute) Dyslipidemia Acute right MCA stroke Hypomagnesemia Sleep apnea CPAP T2DM (type 2 diabetes mellitus) Involuntary movements Stroke-like symptoms (Acute) Environmental allergies (Chronic) Atrial fibrillation with RVR (Acute) Pulmonary nodule (Chronic) Encounter for pre-operative examination HLD (hyperlipidemia) (Chronic) Atrial fibrillation (Chronic) follows with Dr. Romero--on amiodarone, warfarin HTN (hypertension) (Chronic) H/O migraine (Chronic) Hepatitis C (Chronic) IN REMISSION ADD (attention deficit disorder) (Chronic) Mitral regurgitation (Chronic) Medical History (Updated 10/01/23 @ 14:38 by Florence Garcia PA-C) Urinary retention Left ventricular systolic dysfunction (LVSD) History of dynamic ventricular outflow tract obstruction No significant LV outflow tract obstruction noted on resting ECHO 11/2021 per cardio records Cardiomyopathy Tachycardiac vs idopathic CM (EF 48% in 2018- improved to 55% in 11/2021). Negative nuclear stress test 2017 and 01/2022 Morbid obesity with BMI of 40.0-44.9, adult Prediabetes per pt reason for metformin On anticoagulant therapy eliquis daily Hyperthyroidism RADIOACTIVE IODINE TREATMENT Cardiac murmur Surgical History History of esophagogastroduodenoscopy (EGD) with EUS @ [facility] 04/19/22 History of tooth extraction History of cardiac radiofrequency ablation x2--last 06/24/22 @ [facility] [place]x of breast biopsy History of appendectomy History of colonoscopy History of cardioversion x4--last 07/24/22---follows with Dr. Romero also had 03/06/22, 11/2021 and 01/2018 S/P ovarian cystectomy Family History Grandfather Family hx of colon cancer Family/Other Family history of diabetes mellitus Other No family history of adverse response to anesthesia Social History Smoking Status: Unknown if ever smoked Tobacco Type: Cigarettes Second Hand Exposure: No; Do You Dip or Chew Tobacco: No; Hx Alcohol Use: No Hx Substance Use: No Preferred Language: Citizen Of [place] Communication Ability: Impaired Project Mgr Required: No Beliefs That Will Affect Care: None Current Living Situation: Alone Feels Safe at Home: Yes Assistive Devices: Cane Review of Systems Review of Systems: All systems reviewed & are unremarkable except as noted in HPI & below Physical Exam Physical Exam: General: non ill appearing, +becomes tearful when attempting to communicate, WDWN Head: normocephalic, atraumatic Eyes: PERRL, EOM's intact, conjunctiva non-injected, anicteric ENT: normal inspection external ears, nose, mucous membranes moist Neck: supple, trachea midline Lungs: clear, no respiratory distress, no wheezing/rhonchi/rales CV: RRR, + murmur, no pretibial edema Abd: normal BS, soft, +noted minimal facial wincing with deep palpation of RUQ, no guarding or other abdominal discomfort noted Ext: no cyanosis, no calf tenderness Neuro: A&O x 3, +expressive aphasia, +tearful at times Skin: warm, dry Results & Data Results & Data Vital Signs (Past 12 Hours) Vital Signs Temp Pulse Pulse Resp BP BP Pulse Ox 10/01/23 11:00 69 20 141/67 H 95 10/01/23 09:33 70 10/01/23 09:00 66 18 128/75 95 10/01/23 07:16 63 22 125/108 H 95 10/01/23 07:10 95 10/01/23 06:51 60 20 94 10/01/23 06:42 60 23 97 10/01/23 06:30 59 L 18 124/70 95 10/01/23 06:21 60 20 95 10/01/23 06:12 61 19 94 10/01/23 06:03 60 21 95 10/01/23 05:42 67 15 96 10/01/23 05:36 65 19 155/83 H 93 10/01/23 05:33 36.8 C 68 26 H 155/83 H 93 10/01/23 05:33 66 10/01/23 05:16 94 O2 Del Method 10/01/23 11:00 Room Air 10/01/23 09:33 10/01/23 09:00 Room Air 10/01/23 07:16 Room Air 10/01/23 07:10 Room Air 10/01/23 06:51 Room Air 10/01/23 06:42 10/01/23 06:30 10/01/23 06:21 10/01/23 06:12 10/01/23 06:03 10/01/23 05:42 10/01/23 05:36 Room Air 10/01/23 05:33 Room Air 10/01/23 05:33 10/01/23 05:16 Room Air Laboratory Results Short CBC 10/01/23 Range/Units 05:37 WBC 6.11 (4.8-10.8) K/ul Hgb 13.2 (12.0-16.0) g/dl Hct 39.9 (37.0-47.0) % Plt Count 267 (130-400) K/uL BMP 10/01/23 10/01/23 05:37 06:35 Sodium 137 Potassium TNP 3.9 Chloride 101 Carbon Dioxide 25 BUN 17 Creatinine 1.12 Glucose 95 Calcium 9.6 Liver Function 10/01/23 10/01/23 Range/Units 05:37 06:35 Total Bilirubin 0.8 (0.2-1.0) mg/dl Direct Bilirubin TNP 0.1 AST TNP 72 H ALT 111 H (7-52) U/L Alkaline Phosphatase 60 (34-104) U/L Albumin 4.5 (3.4-5.0) gm/dl Urine 10/01/23 Range/Units 08:35 Urine Color Yellow Urine Appearance Clear (Clear) Urine pH 5.5 (4.5-7.5) Ur Specific [place] 1.016 (1.000-1.030) Urine Protein Negative (Negative) Urine Glucose (UA) Negative (Negative) Diagnostic Findings Chest X-Ray 10/01/23 06:20 XR chest 1V portable CLINICAL HISTORY: chest pain TECHNIQUE: Single frontal radiograph of the chest was obtained. Comparison: Comparison is made to chest radiograph 01/30/2023 FINDINGS: No lines and tubes are seen. Cardiomegaly is noted. The aortic arch is calcified. The lungs are clear. No evidence of pleural effusion or pneumothorax. IMPRESSION: No acute chest disease. ACT 112: Negative or not required by law. Electronically signed by: Chong Cook M.D. 10/01/2023 6:[address] 10/01/23 07:23 CT head/brain wo con CLINICAL HISTORY: AMS Technique: Contiguous axial CT images of the head were acquired from the base of the skull to the vertex without intravenous contrast administration. Images were viewed in brain, subdural and bone windows. Automated dose lowering techniques and/or adjustment according to patient size were utilized for this exam. Comparison: None available at the time of this dictation. Findings: Old infarcts are seen in the bilateral frontal lobes. No acute abnormalities are seen. Imaged portions of the paranasal sinuses and mastoid air cells are clear. The orbits appear normal. There are no acute fractures of the calvaria or scalp swelling. Impression: No acute intracranial hemorrhage, no evidence of acute territorial infarction or other acute intracranial disease process. ACT 112: Negative or not required by law. Electronically signed by: Chong Cook M.D. 10/01/2023 8:30 AM Liver Ultrasound 10/01/23 10:55 ABDOMINAL ULTRASOUND, RIGHT UPPER QUADRANT HISTORY: eleavted AST ALT with CP. COMPARISON: Abdomen and pelvis CT 08/15/2022. FINDINGS: Pancreas: The pancreatic tail is obscured by overlying bowel gas. The remaining portions of the pancreas are within normal limits. Liver: Unremarkable. Gallbladder: The gallbladder is mildly distended. Gallbladder wall is top normal in thickness measuring 2.7 mm. There are few small stones and sludge within the gallbladder. The technologist reported a positive sonographic Clark sign. Therefore, these findings raise the possibility of an early acute cholecystitis. CBD: 7 mm. This is at the upper limits of normal for the patient's age. Right kidney: No hydronephrosis. IMPRESSION: 1. A few small stones and sludge within the gallbladder which is mildly distended. The technologist reported a positive sonographic Clark sign. Therefore, this raises the possibility of an early acute cholecystitis. Consider follow-up nuclear medicine HIDA scan for further evaluation. 2. The common bile duct is at the upper limits of normal measuring 7 mm. ACT 112: Negative or not required by law. Electronically signed by: Alexis Herzog M.D. 10/01/2023 12:01 PM ECG Additional Comments: Sinus rhythm, 1st degree AV block, t wave flattening III, avf leads Supervising Physician Co-Signing Physician Notes Pt was seen and examined by myself, Jessica Adler MD on the day of service. Care was coordinated with Florence Garcia PA-C. 68yoF with Hx of expressive aphasia presenting with chest pain. Has been tapping her chest and head repeatedly and there was concern for altered mental status at [facility]. On exam pt alert though having difficulty verbally expressing herself. Nods yes and no to questions. Abdomen tender in epigastrium and RUQ with deep palpation. However, workup revealed US noting possible cholecystitis. General surgery consulted, recommending HIDA to rule out acute cholecystitis with need for possible MRCP. Continue IV Zosyn and IV fluids. Pain control Otherwise as above. I spent a total [id number] coordinating, documenting, and providing care for this patient excluding time spent in the performance of separately billed services (6) HTN (hypertension) Hypertension type: primary hypertension Qualified Code(s): I10 - Essential (primary) hypertension
[2023-10-01] MEDS: metroNIDAZOLE 500 MG/100 ML BAG IV ONE (13:11)
--- NOTE | 2023-10-01 13:32 | Surgery Consultation ---
Date of Consultation October 01, 2023 Assessment & Plan (1) Atrial fibrillation: Her US images and results were personally viewed and interpreted by myself On physical exam she has no signs of cholecystitis She does have a cholelithiasis, very mild transaminitis and a dilated CBD Would repeat her LFT's in AM to ensure they are not trending up, may need MRCP if they are Will get a HIDA scan to r/o acute cholecystitis Will follow (2) Cholelithiasis: History of Present Illness History of Present Illness This is a 68 yo female who has a history of CVA and unable to communicate who was brought here from her intermediate due to her hitting her chest and becoming frustrated not being able to communicate. No one was available to aid with the history. She does take Coumadin for a history of Afib. Allergies Allergy/AdvReac Type Severity Reaction Status Date / Time erythromycin base Allergy Severe Rash Verified 08/15/22 15:20 Sulfa (Sulfonamide Allergy Severe Rash Verified 08/15/22 15:20 Antibiotics) aspirin Allergy Intermediate Rash Verified 08/15/22 15:20 latex Allergy Intermediate RASH Verified 08/15/22 15:20 Home Medications Medication Instructions Recorded Confirmed Type fluticasone fur. 200 mcg-umeclid 1 inh inhalation .DAILY@0800 01/23/23 10/01/23 History 62.5 mcg-vilant 25 mcg inhalat.powder (Trelegy Ellipta) losartan 50 mg tablet 50 mg PO .DAILY@0800 01/23/23 10/01/23 History metformin 500 mg tablet 500 mg PO .DAILY@0800,1700 01/23/23 10/01/23 History montelukast 10 mg tablet 10 mg PO .DAILY@0800 01/23/23 10/01/23 History tirzepatide 2.5 mg/0.5 mL 5 mg subcut .@0800 ON Mondays01/23/23 10/01/23 History subcutaneous pen injector (Mounjaro) acetaminophen 325 mg tablet 650 mg PO Q6H PRN Pain 10/01/23 10/01/23 History albuterol sulfate 90 mcg/actuation 2 puff inhalation Q4H PRN 10/01/23 10/01/23 History aerosol inhaler SOB/WHEEZING amiodarone 200 mg tablet 200 mg PO .DAILY@0800 10/01/23 07/31/24 History atorvastatin 80 mg tablet 80 mg PO .DAILY@79910/01/23 10/01/23 History bupropion HCl 150 mg 24 hr tablet, 150 mg PO .DAILY@79910/01/23 10/01/23 History extended release docusate sodium 100 mg capsule 100 mg PO BID PRN Constipation 10/01/23 10/01/23 History (Colace) levetiracetam 1,000 mg tablet 1,000 mg PO .DAILY@08,199910/01/23 10/01/23 History (Keppra) mepolizumab 100 mg/mL subcutaneous 1 mg subcut .@0800 Q 4 WEEKS 10/01/23 10/01/23 History auto-injector (Nucala) potassium chloride 10 mEq 10 meq PO .@0800 MON,FRI,Fri10/01/23 10/01/23 History tablet,extended release(part/cryst) warfarin 2 mg tablet 2 mg PO .@1700 MON,FRI,Fri10/01/23 10/01/23 History warfarin 4 mg tablet 4 mg PO .@1700 SETHI,TU,PRESLEY,SAT 10/01/23 10/01/23 History Patient History Medical History Urinary retention Left ventricular systolic dysfunction (LVSD) History of dynamic ventricular outflow tract obstruction No significant LV outflow tract obstruction noted on resting ECHO 11/2021 per cardio records COPD (chronic obstructive pulmonary disease) Per records Cardiomyopathy Tachycardiac vs idopathic CM (EF 48% in 2017- improved to 55% in 11/2021). Negative nuclear stress test 2017 and 01/2022 Morbid obesity with BMI of 40.0-44.9, adult Prediabetes per pt reason for metformin On anticoagulant therapy eliquis daily Hyperthyroidism RADIOACTIVE IODINE TREATMENT Depression Cardiac murmur Asthma inhaler daily/nebulizer prn Surgical History History of esophagogastroduodenoscopy (EGD) with EUS @ [facility] 04/19/22 History of tooth extraction History of cardiac radiofrequency ablation x2--last 06/24[place]22 [place] [facility] [place]x of breast biopsy History of appendectomy History of colonoscopy History of cardioversion x4--last 07/24/22---follows with Dr. Romero also had 03/06/22, 11/2021 and 01/2018 S/P ovarian cystectomy Family History Grandfather Family hx of colon cancer Family/Other Family history of diabetes mellitus Other No family history of adverse response to anesthesia Social History Smoking Status: Unknown if ever smoked Tobacco Type: Cigarettes Second Hand Exposure: No; Do You Dip or Chew Tobacco: No; Hx Alcohol Use: No Hx Substance Use: No Preferred Language: Pashto Communication Ability: Impaired Insole Bottom Filler Required: No Beliefs That Will Affect Care: None Current Living Situation: Alone Feels Safe at Home: Yes Assistive Devices: Cane Review of Systems Review of Systems: Unobtainable due to cognitive status Physical Exam Constitutional: WD/WN, vitals as above Eyes: PERRL, conjunctivae normal, anicteric sclerae ENMT: external ear and nose normal, oropharynx normal Neck: trachea midline, no thyromegaly Respiratory: normal respiratory effort, lungs clear to auscultation Cardiovascular: RRR, no murmur, no edema Gastrointestinal (Abdomen): Inspection/Auscultation: abdomen normal to inspection; abdomen not distended Percussion/Palpation: abdomen soft; abdomen nontender, no guarding and no hernia Musculoskeletal: no cyanosis or clubbing, extremities motor strength 5/5 Skin: no rashes, warm and dry Neurologic: PERRL, EOMI, accommodation nl, no face palsy, no dysarthria Psychiatric: A+Ox3, euthymic affect Results & Data Vital Signs (Past 12 Hours) Vital Signs Temp Pulse Pulse Resp BP BP Pulse Ox 10/01/23 12:45 61 18 164/80 H 96 10/01/23 11:00 69 20 141/67 H 95 10/01/23 09:33 70 10/01/23 09:00 66 18 128/75 95 10/01/23 07:16 63 22 125/108 H 95 10/01/23 07:10 95 10/01/23 06:51 60 20 94 10/01/23 06:42 60 23 97 10/01/23 06:30 59 L 18 124/70 95 10/01/23 06:21 60 20 95 10/01/23 06:12 61 19 94 10/01/23 06:03 60 21 95 10/01/23 05:42 67 15 96 10/01/23 05:36 65 19 155/83 H 93 10/01/23 05:33 36.8 C 68 26 H 155/83 H 93 10/01/23 05:33 66 10/01/23 05:16 94 O2 Del Method 10/01/23 12:45 Room Air 10/01/23 11:00 Room Air 10/01/23 09:33 10/01/23 09:00 Room Air 10/01/23 07:16 Room Air 10/01/23 07:10 Room Air 10/01/23 06:51 Room Air 10/01/23 06:42 10/01/23 06:30 10/01/23 06:21 10/01/23 06:12 10/01/23 06:03 10/01/23 05:42 10/01/23 05:36 Room Air 10/01/23 05:33 Room Air 10/01/23 05:33 10/01/23 05:16 Room Air Diagnostic Findings IMPRESSION: 1. A few small stones and sludge within the gallbladder which is mildly distended. The technologist reported a positive sonographic Clark sign. Therefore, this raises the possibility of an early acute cholecystitis. Consider follow-up nuclear medicine HIDA scan for further evaluation. 2. The common bile duct is at the upper limits of normal measuring 7 mm. PG Care Time/CCT Total # of Minutes Spent Total Time Spent with Patient: Total time spent is greater than 50% in coordination of care (as documented) at patient's floor/unit and/or counseling patient: Coding Level of Care Code 13283 OP VST NEW HI 60 MIN Diagnoses Atrial fibrillation I48.91 Cholelithiasis K80.20
[2023-10-01] MEDS ORDERED: GLUCOSE 40% GEL 15 GM TUBE PO PRN (15:39)
[2023-10-01] MEDS ORDERED: GLUCOSE 10 TAB/TUBE PO PRN (15:39)
[2023-10-01] MEDS ORDERED: ONDANSETRON INJ 2 MG/ML 2 ML VIAL IV PRN (15:39)
[2023-10-01] MEDS ORDERED: ACETAMINOPHEN 325 MG TAB PO PRN (15:39)
[2023-10-01] MEDS ORDERED: ALBUTEROL 0.083% NEBU SOLN 3 ML VIAL NEB PRN (15:39)
[2023-10-01] MEDS ORDERED: GLUCAGON FOR INJ 1 MG VIAL SQ PRN (15:39)
--- NOTE | 2023-10-01 16:39 | Nuclear Medicine Report ---
NM hepatobiliary CLINICAL HISTORY: 68 years-old Female with r/o acute cholecystitis. TECHNIQUE: Sequential anterior abdominal images were obtained through 60 minutes following the intra venous administration of 5. mCi of technetium-99m Choletec. COMPARISON: Gallbladder ultrasound of same day FINDINGS: There is prompt, uniform accumulation of the tracer by the liver. There is normal filling of the int rahepatic ducts, common bile duct and normal excretion of the tracer into the duodenum. The gallblad carter fills normally. IMPRESSION: Normal hepatobiliary study. No scintigraphic evidence for acute cholecystitis or common bile duct obstruction. ACT 112: Negative or not required by law. The above report was generated using voice recognition software. It may contain grammatical, syntax o r spelling errors. Electronically signed by: Morris Garcia M.D. 10/01/2023 4:37 PM
[2023-10-01] MEDS: DEXTROSE 50% 50 ML SYRINGE IV PRN (16:58)
[2023-10-01] MEDS: NSS + 20MEQ KCL 20 MEQ/1,000 ML BAG IV SCH ×2 (17:02→18:34)
[2023-10-01] MEDS: PIPER/TAZO 4.5g in D5W MINI-B 100 ML IV ONE (17:03)
[2023-10-01] MEDS: INSULIN ASPART PER UNIT CHARGE SC SCH (17:09)
[2023-10-01] MEDS: AMIODARONE 200 MG TAB PO SCH (17:10)
[2023-10-01] MEDS: LOSARTAN POTASSIUM 50 MG TAB PO SCH (17:11)
[2023-10-01] MEDS: MONTELUKAST SODIUM 10 MG TABLET PO SCH (17:11)
[2023-10-01] MEDS: buPROPion XL 150 MG TABCR PO SCH (17:11)
[2023-10-01] MEDS: D5NSS + 20MEQ KCL 20 MEQ/1,000 ML BAG IV SCH (18:20)
[2023-10-01] MEDS: levETIRAcetam 500 MG TAB PO SCH (19:24)
[2023-10-01] MEDS: OLANZapine 10 MG/2.1 ML SDV IM STA (20:53)
[2023-10-01] MEDS: LORazepam 1 MG TAB ONE (21:26)
[2023-10-01] MEDS: LORazepam 1 MG/1 ML SYR ED Inj Use ONE (21:30)
[2023-10-01] MEDS: PIPERACILLIN/TAZOBACTAM 4.5 GM in DEXTROSE 5% MINI-B 100 ML IV SCH (22:19)
[2023-10-02] MEDS: HYDROmorphone INJ 0.5 MG/0.5 ML SYR IV PRN (07:29)
[2023-10-02 07:35] LABS: Hematocrit (blood only) 39.6 % (37.0-47.0); Mean Corpuscular Hemoglobin 30.7 pg (25.0-34.0); Mean Corpuscular Hgb Conc 32.8 g/dL (32.0-36.0); Mean Corpuscular Volume 93.4 fL (80.0-100.0); Mean Platelet Volume 9.5 fL (9.4-12.4); Platelet Count 240 K/uL (130-400); RDW Coefficient of Variation 14.9 % (11.5-14.5); RDW Standard Deviation 51.6 fL (36.4-46.3); Red Blood Count 4.24 M/uL (4.20-5.40); White Blood Count 6.36 K/ul (4.8-10.8)
--- NOTE | 2023-10-02 07:42 | Communication Note ---
Date of Service: October 02, 2023 Patient HIDA scan from 10/01/23 reviewed and is negative for acute cholecystitis and she was ordered a diet from primary team. General surgery will sign off at this time, please call with questions or concerns.
[2023-10-02 07:47] LABS: INR 3.6 (0.9-1.1); Prothrombin Time 34.6 Seconds (9.0-12.0)
[2023-10-02 08:05] LABS: Albumin Globulin Ratio 1.6 (0.9-2); Albumin Level 4.2 gm/dl (3.4-5.0); BUN Creatinine Ratio 13.8 (10-20); Bilirubin,Total 0.7 mg/dl (0.2-1.0); Calcium 9.5 mg/dl (8.6-10.3); Creatinine Clr Calc Pharmacy 61.6 ml/min; Est GFR (African American) 78.8 ml/min; Globulin 2.7 gm/dl (2.5-4.0); Magnesium 1.9 mg/dl (1.7-2.4); Potassium 3.9 mmol/L (3.5-5.1); Total Protein 6.9 gm/dl (6.0-8.3)
[2023-10-02 08:19] LABS: Estimated Average Glucose 120 mg/dl; Hemoglobin A1C 5.8 % (4.5-5.6)
[2023-10-02] MEDS: ACETAMINOPHEN 1,000 MG/100 ML VIAL IV STA (08:38)
[2023-10-02] MEDS: ATORVASTATIN 40 MG TAB PO SCH (08:46)
[2023-10-02] MEDS: UMECLIDINIUM/VILANTEROL 62.5/25MCG 7 PUFFS/INHALER INH SCH (08:46)
[2023-10-02] MEDS: FLUTICASONE FUROATE 200MCG 14 PUFFS/INHALER INH SCH (08:46)
[2023-10-02] MEDS: OLANZapine 10 MG/2.1 ML SDV IM STA ×2 (08:54→17:41)
--- NOTE | 2023-10-02 13:47 | Hospitalist Progress Note ---
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 Upon further investigation patient was trying to communicate chest discomfort. Patient reports some nausea and had some loose stools earlier in the week per staff. No noted fever/chills. In ER patient afebrile, vitals stable. No leukocytosis. T bili: 0.8, AST: 72, ALT: 111, Lipase WNL. UA unremarkable Liver US: A few small stones and sludge within the gallbladder which is mildly distended. The technologist reported a positive sonographic Clark sign. The common bile duct is at the upper limits of normal measuring 7 mm. CXR: No acute infiltrate CT Head: no acute intracranial abnormality In ER she was given Ativan 0.5mg IV, Rocephin 2GM IV and Flagyl 500mg IV. Upon my evaluation in ER patient denies CP, SOB, abdominal pain. Noted mild tenderness to palpation RUQ on exam Positivity of acute cholecystitis has been ruled out by HIDA scan Surgery input and recommendation appreciated Minimal abdominal discomfort but no pain (3) Elevated troponin: Plan: Presented with possible chest pain-No ACS Troponin: 32-->33. EKG some T wave flattening lead III, avf per my interpretation Denies current CP, SOB Monitor on telemetry Repeat EKG in am Will trend troponin If troponins uptrending or recurrent CP consider echo, and or cardiology consult Outpatient chart review: 09/08/2023 echo: EF: 60-64%, LV wall thickness mildly increased, left atrium severely enlarged, grade 2 diastolic dysfunction, mild aortic valve sclerosis, mild MR, mild TR, no evidence of pulmonary hypertension (4) CVA (cerebral vascular accident): Plan: History CVA with residual expressive aphasia Patient has tablet to assist in communication Fall precautions Continue atorvastatin. Hold warfarin for now (5) Atrial fibrillation: Plan: Anticoagulated on warfarin Current sinus rhythm INR: 3.5 Hold warfarin INR in AM-Remains minimally elevated at 3.6 Continue amiodarone (6) T2DM (type 2 diabetes mellitus): Plan: A1c: 5.6 on 05/27/23 Hold home metformin, Mounjaro Novolog sliding scale correction per protocol A1c in AM-5.8 (7) HTN (hypertension): Plan: Continue losartan (8) HLD (hyperlipidemia): Plan: Continue atorvastatin (9) COPD (chronic obstructive pulmonary disease): (10) Asthma: Plan: No signs exacerbation On Nucala Continue home inhalers, montelukast. Albuterol neb prn (11) Seizure disorder: Plan: Denies recent seizure like activity Continue levetiracetam (12) Depression: Plan: History Depression, anxiety Continue bupropion DVT Prophylaxis INR: 3.5. SCDs for now Admit med/tele Spoke with patient's daughter Dr Enid Patel on phone to give update of patient and condition. . (She is currently out of state on vacation but would like update of patient) DNR/DNI as per discussion with patient's daughter Dr Enid Patel who is also POA. Follows with Luz THOMPSON for routine care Admission and Anticipated Discharge Date Admission Date: October 01, 2023 Subjective 10/02/2023 The patient was seen and examined in medical telemetry unit She has dysphasia and was noted to be very anxious this morning Following IM Zyprexa condition improved She was looking much better and complained to have minimal abdominal discomfort/pain Denies any other significant symptoms and says that she has been feeling much better Review of Systems Review of Systems: All systems reviewed and are unremarkable except as noted below Physical Exam Physical Exam: Lying in bed without any acute distress Constitutional: well developed, well nourished and + ill appearing Eyes: PERRL, conjunctivae normal, anicteric sclerae ENMT: external ear and nose normal, oropharynx normal Neck: trachea midline, no thyromegaly Respiratory: no respiratory distress Auscultation: lungs clear to auscultation bilaterally Cardiovascular: Rate/Rhythm: regular rate and regular rhythm; not tachycardic Heart Sounds: normal S1, normal S2 and + murmur Extremities: no edema Gastrointestinal (Abdomen): Inspection/Auscultation: normal bowel sounds; abdomen not distended Percussion/Palpation: + abdomen tender (Minimally tender in the lower quadrants) and abdomen soft Neurologic: .Alert awake and oriented.Has significan t aphasia from prior stroke.Moves all limbs equally Lymphatic: no cervical or axillary lymphadenopathy Results & Data Results & Data Vital Signs (Past 12 Hours) Vital Signs Temp Pulse Pulse Resp BP Pulse Ox O2 Del Method 10/02/23 11:09 36.6 C 66 20 136/56 L 92 Room Air 10/02/23 08:42 69 22 170/85 H 94 Room Air 10/02/23 08:00 Room Air 10/02/23 07:39 36.8 C 58 L 16 160/80 H 94 Room Air 10/02/23 07:00 59 L 10/02/23 03:21 36.6 C 58 L 18 122/78 94 Room Air Laboratory Results Short CBC 10/02/23 Range/Units 07:09 WBC 6.36 (4.8-10.8) K/ul Hgb 13.0 (12.0-16.0) g/dl Hct 39.6 (37.0-47.0) % Plt Count 240 (130-400) K/uL BMP 10/02/23 07:09 Sodium 141 Potassium 3.9 Chloride 103 Carbon Dioxide 27 BUN 12 Creatinine 0.87 Glucose 79 Calcium 9.5 Liver Function 10/02/23 Range/Units 07:09 Total Bilirubin 0.7 (0.2-1.0) mg/dl AST 63 H (13-39) U/L ALT 91 H (7-52) U/L Alkaline Phosphatase 57 (34-104) U/L Albumin 4.2 (3.4-5.0) gm/dl Medications Administered Current Inpatient Medications Acetaminophen (Acetaminophen 325 Mg Tab) 650 mg PO Q4H PRN PRN Reason: Pain or Fever Stop: 10/31/23 15:38 Albuterol (Albuterol 0.083% Nebu Soln 3 Ml Vial) 2.5 mg NEB Q6H PRN; Protocol PRN Reason: Shortness Of Breath Or Wheezing Stop: 10/31/23 15:38 Amiodarone HCl (Amiodarone 200 Mg Tab) 200 mg PO DAILY LYLY Stop: 10/31/23 15:59 Last Admin: 10/02/23 09:53 Dose: 200 mg Atorvastatin Calcium (Atorvastatin 40 Mg Tab) 80 mg PO DAILY LYLY Stop: 11/01/23 08:59 Last Admin: 10/02/23 09:53 Dose: 80 mg Bupropion HCl (Bupropion Xl 150 Mg Tabcr) 150 mg PO DAILY LYLY Stop: 10/31/23 15:59 Last Admin: 10/02/23 09:53 Dose: 150 mg Dextrose (Dextrose 50% 50 Ml Syringe) 25 - 50 ml IV UD PRN; Protocol PRN Reason: Hypoglycemia Protocol Stop: 10/31/23 15:38 Last Admin: 10/01/23 16:58 Dose: 25 ml Fluticasone Furoate (Fluticasone Furoate 200mcg 14 Puffs/Inhaler) 1 puffs INH DAILY LYLY Stop: 11/01/23 08:59 Last Admin: 10/02/23 09:55 Dose: 1 puffs Glucagon (Glucagon For Inj 1 Mg Vial) 1 mg SQ UD PRN; Protocol PRN Reason: Hypoglycemia Protocol Stop: 10/31/23 15:38 Glucose (Glucose 40% Gel 15 Gm Tube) 15 - 30 gm PO UD PRN; Protocol PRN Reason: Hypoglycemia Protocol Stop: 10/31/23 15:38 Glucose (Glucose 10 Tab/Tube) 4 - 8 tab PO UD PRN; Protocol PRN Reason: Hypoglycemia Treatment Stop: 10/31/23 15:38 Hydromorphone HCl (Hydromorphone Inj 0.5 Mg/0.5 Ml Syr) 0.25 mg IV Q6H PRN PRN Reason: Pain Stop: 10/15/23 16:29 Last Admin: 10/02/23 07:29 Dose: 0.25 mg Piperacillin Sod/Tazobactam (Sod 4.5 gm/ Dextrose) 100 mls @ 25 mls/hr IV Q8H LYLY; Protocol Stop: 10/11/23 21:59 Last Admin: 10/02/23 13:26 Dose: 25 mls/hr Insulin Aspart (Insulin Aspart Per Unit Charge) 0 units SC ACHS [facility] Stop: 10/31/23 16:29 Last Admin: 10/01/23 17:09 Dose: Not Given Levetiracetam (Levetiracetam 500 Mg Tab) 1,000 mg PO TODAY@ [facility] Stop: 10/31/23 19:59 Last Admin: 10/02/23 09:52 Dose: 1,000 mg Losartan Potassium (Losartan Potassium 50 Mg Tab) 50 mg PO DAILY LYLY Stop: 10/31/23 15:59 Last Admin: 10/02/23 09:54 Dose: 50 mg Miscellaneous (Carbohydrates For Hypoglycemia ) 15 - 30 gm PO UD PRN PRN Reason: Hypoglycemia Protocol Stop: 10/31/23 15:38 Montelukast Sodium (Montelukast Sodium 10 Mg Tablet) 10 mg PO DAILY LYLY Stop: 10/31/23 15:59 Last Admin: 10/02/23 09:54 Dose: 10 mg Ondansetron HCl (Ondansetron Inj 2 Mg/Ml 2 Ml Vial) 4 mg IV Q6H PRN PRN Reason: Nausea Stop: 10/31/23 15:38 Umeclidinium/Vilanterol (Umeclidinium/Vilanterol 62.5/25mcg 7 Puffs/Inhaler) 1 puffs INH DAILY LYLY Stop: 11/01/23 08:59 Last Admin: 10/02/23 09:54 Dose: 1 puffs (7) HTN (hypertension) Hypertension type: primary hypertension Qualified Code(s): I10 - Essential (primary) hypertension
[2023-10-02] MEDS: CARBOHYDRATES FOR HYPOGLYCEMIA PO PRN (16:55)
[2023-10-02] MEDS: OLANZapine 5 MG TABLET PO SCH (20:48)
[2023-10-03] MEDS: LORazepam 0.25 MG in SYRINGE 0.125 ML IV STA (01:57)
[2023-10-03 06:57] LABS: Basophils # (auto) 0.04 K/uL (0.00-0.20); Basophils % (auto) 0.6 %; Eosinophils # (auto) 0.05 K/uL (0.00-0.50); Eosinophils % (auto) 0.8 %; Hemoglobin 13.3 g/dl (12.0-16.0); Immature Granulocytes # (auto) 0.04 K/uL (0.01-0.20); Immature Granulocytes % (auto) 0.6 %; Lymphocytes # (auto) 1.39 K/uL (1.20-3.40); Lymphocytes % (auto) 22.6 %; Mean Corpuscular Hemoglobin 30.3 pg (25.0-34.0); Mean Corpuscular Hgb Conc 30.9 g/dL (32.0-36.0); Mean Corpuscular Volume 97.9 fL (80.0-100.0); Mean Platelet Volume 9.7 fL (9.4-12.4); Monocytes # (auto) 0.78 K/uL (0.11-0.59); Monocytes % (auto) 12.7 %; Neutrophils # (auto) 3.86 K/uL (1.40-6.50); Neutrophils % (auto) 62.7 %; Platelet Count 204 K/uL (130-400); RDW Coefficient of Variation 15.1 % (11.5-14.5); RDW Standard Deviation 54.4 fL (36.4-46.3); Red Blood Count 4.39 M/uL (4.20-5.40); White Blood Count 6.16 K/ul (4.8-10.8)
[2023-10-03 07:14] LABS: Calcium 9.1 mg/dl (8.6-10.3); Magnesium 1.8 mg/dl (1.7-2.4); Potassium 3.7 mmol/L (3.5-5.1)
[2023-10-03 07:20] LABS: BUN Creatinine Ratio 10.3 (10-20); Creatinine Clr Calc Pharmacy 55.2 ml/min; Est GFR (African American) 69.1 ml/min; Est GFR (Non-African American) 59.6 ml/min
--- NOTE | 2023-10-03 14:04 | Hospitalist Progress Note ---
Date of Service October 03, 2023 Assessment & Plan (1) Acute confusion: Plan: Presented from [facility] with acute confusion She was noted to be frustrated and was hitting her chest and complaining of some chest pain also possible abdominal discomfort Required so far 2 doses of IM Zyprexa to control her anxiety Initial workup with CAT scan has been unremarkable Infectious workup has been ongoing Has been getting intravenous Zosyn and awaiting cultures Clinically much better and will continue to monitor No more confusion and she is back to her baseline Possible abdominal discomfort and will get CT of the abdomen to rule out diverticulitis If the scan is negative will discontinue antibiotic and she will be discharged to the place that she came from (2) Cholelithiasis: Plan: Patient is a 68-year-old female with PMH 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 Upon further investigation patient was trying to communicate chest discomfort. Patient reports some nausea and had some loose stools earlier in the week per staff. No noted fever/chills. In ER patient afebrile, vitals stable. No leukocytosis. T bili: 0.8, AST: 72, ALT: 111, Lipase WNL. UA unremarkable Liver US: A few small stones and sludge within the gallbladder which is mildly distended. The technologist reported a positive sonographic Clark sign. The common bile duct is at the upper limits of normal measuring 7 mm. CXR: No acute infiltrate CT Head: no acute intracranial abnormality In ER she was given Ativan 0.5mg IV, Rocephin 2GM IV and Flagyl 500mg IV. Upon my evaluation in ER patient denies CP, SOB, abdominal pain. Noted mild tenderness to palpation RUQ on exam Positivity of acute cholecystitis has been ruled out by HIDA scan Surgery input and recommendation appreciated Minimal abdominal discomfort but no pain Awaiting CT scan of the abdomen and pelvis (3) Elevated troponin: Plan: Presented with possible chest pain-No ACS Troponin: 32-->33. EKG some T wave flattening lead III, avf per my interpretation Denies current CP, SOB Monitor on telemetry Repeat EKG in am Will trend troponin If troponins uptrending or recurrent CP consider echo, and or cardiology consult Outpatient chart review: 09/08/2023 echo: EF: 60-64%, LV wall thickness mildly increased, left atrium severely enlarged, grade 2 diastolic dysfunction, mild aortic valve sclerosis, mild MR, mild TR, no evidence of pulmonary hypertension (4) CVA (cerebral vascular accident): Plan: History CVA with residual expressive aphasia Patient has tablet to assist in communication Fall precautions Continue atorvastatin. Hold warfarin for now (5) Atrial fibrillation: Plan: Anticoagulated on warfarin Current sinus rhythm INR: 3.5 Hold warfarin INR in AM-Remains minimally elevated at 3.6 Continue amiodarone (6) T2DM (type 2 diabetes mellitus): Plan: A1c: 5.6 on 05/27/23 Hold home metformin, Mounjaro Novolog sliding scale correction per protocol A1c in AM-5.8 (7) HTN (hypertension): Plan: Continue losartan (8) HLD (hyperlipidemia): Plan: Continue atorvastatin (9) COPD (chronic obstructive pulmonary disease): (10) Asthma: Plan: No signs exacerbation On Nucala Continue home inhalers, montelukast. Albuterol neb prn (11) Seizure disorder: Plan: Denies recent seizure like activity Continue levetiracetam (12) Depression: Plan: History Depression, anxiety Continue bupropion DVT Prophylaxis INR: 3.5. SCDs for now Admit med/tele Spoke with patient's daughter Dr Enid Patel on phone to give update of patient and condition. . (She is currently out of state on vacation but would like update of patient) DNR/DNI as per discussion with patient's daughter Dr Enid Patel who is also POA. Follows with Luz THOMPSON for routine care Discussed with the daughter 10/02/2023 Likely discharge this afternoon Admission and Anticipated Discharge Date Admission Date: October 01, 2023 Subjective 10/02/2023 The patient was seen and examined in medical telemetry unit She has dysphasia and was noted to be very anxious this morning Following IM Zyprexa condition improved She was looking much better and complained to have minimal abdominal discomfort/pain Denies any other significant symptoms and says that she has been feeling much better 10/03/2023 Patient was seen and examined in medical telemetry unit She has been much better today Likely complaining some abdominal discomfort specially lower quadrants No fever and no chills, no nausea no vomiting Has been eating well Review of Systems Review of Systems: All systems reviewed and are unremarkable except as noted below Physical Exam Physical Exam: Lying in bed without any acute distress Constitutional: well developed, well nourished and + ill appearing Eyes: PERRL, conjunctivae normal, anicteric sclerae ENMT: external ear and nose normal, oropharynx normal Neck: trachea midline, no thyromegaly Respiratory: no respiratory distress Auscultation: lungs clear to auscultation bilaterally Cardiovascular: Rate/Rhythm: regular rate and regular rhythm; not tachycardic Heart Sounds: normal S1, normal S2 and + murmur Extremities: no edema Gastrointestinal (Abdomen): Inspection/Auscultation: normal bowel sounds; abdomen not distended Percussion/Palpation: + abdomen tender (Minimally tender in the lower quadrants) and abdomen soft Neurologic: Has expressive aphasia secondary to stroke in the past Lymphatic: no cervical or axillary lymphadenopathy Results & Data Results & Data Vital Signs (Past 12 Hours) Vital Signs Temp Pulse Pulse Pulse Resp BP Pulse Ox 10/03/23 11:17 36.5 C 51 L 18 99/64 L 98 10/03/23 07:45 60 10/03/23 07:36 36.6 C 61 18 154/78 H 93 10/03/23 02:38 36.5 C 76 18 135/73 92 O2 Del Method 10/03/23 11:17 Room Air 10/03/23 07:45 10/03/23 07:36 Room Air 10/03/23 02:38 Room Air Laboratory Results Short CBC 10/03/23 Range/Units 06:41 WBC 6.16 (4.8-10.8) K/ul Hgb 13.3 (12.0-16.0) g/dl Hct 43.0 (37.0-47.0) % Plt Count 204 (130-400) K/uL BMP 10/03/23 06:41 Sodium 140 Potassium 3.7 Chloride 105 Carbon Dioxide 25 BUN 10 Creatinine 0.97 Glucose 89 Calcium 9.1 Medications Administered Current Inpatient Medications Acetaminophen (Acetaminophen 325 Mg Tab) 650 mg PO Q4H PRN PRN Reason: Pain or Fever Stop: 10/31/23 15:38 Albuterol (Albuterol 0.083% Nebu Soln 3 Ml Vial) 2.5 mg NEB Q6H PRN; Protocol PRN Reason: Shortness Of Breath Or Wheezing Stop: 10/31/23 15:38 Amiodarone HCl (Amiodarone 200 Mg Tab) 200 mg PO DAILY LYLY Stop: 10/31/23 15:59 Last Admin: 10/03/23 08:03 Dose: 200 mg Atorvastatin Calcium (Atorvastatin 40 Mg Tab) 80 mg PO DAILY LYLY Stop: 11/01/23 08:59 Last Admin: 10/03/23 08:03 Dose: 80 mg Bupropion HCl (Bupropion Xl 150 Mg Tabcr) 150 mg PO DAILY LYLY Stop: 10/31/23 15:59 Last Admin: 10/03/23 08:03 Dose: 150 mg Dextrose (Dextrose 50% 50 Ml Syringe) 25 - 50 ml IV UD PRN; Protocol PRN Reason: Hypoglycemia Protocol Stop: 10/31/23 15:38 Last Admin: 10/01/23 16:58 Dose: 25 ml Fluticasone Furoate (Fluticasone Furoate 200mcg 14 Puffs/Inhaler) 1 puffs INH DAILY LYLY Stop: 11/01/23 08:59 Last Admin: 10/03/23 08:03 Dose: 1 puffs Glucagon (Glucagon For Inj 1 Mg Vial) 1 mg SQ UD PRN; Protocol PRN Reason: Hypoglycemia Protocol Stop: 10/31/23 15:38 Glucose (Glucose 40% Gel 15 Gm Tube) 15 - 30 gm PO UD PRN; Protocol PRN Reason: Hypoglycemia Protocol Stop: 10/31/23 15:38 Glucose (Glucose 10 Tab/Tube) 4 - 8 tab PO UD PRN; Protocol PRN Reason: Hypoglycemia Treatment Stop: 10/31/23 15:38 Hydromorphone HCl (Hydromorphone Inj 0.5 Mg/0.5 Ml Syr) 0.25 mg IV Q6H PRN PRN Reason: Pain Stop: 10/15/23 16:29 Last Admin: 10/03/23 07:59 Dose: 0.25 mg Piperacillin Sod/Tazobactam (Sod 4.5 gm/ Dextrose) 100 mls @ 25 mls/hr IV Q8H LYLY; Protocol Stop: 10/11/23 21:59 Last Infusion: 10/03/23 09:53 Dose: Infused Insulin Aspart (Insulin Aspart Per Unit Charge) 0 units SC ACHS LYLY Stop: 10/31/23 16:29 Last Admin: 10/01/23 17:09 Dose: Not Given Levetiracetam (Levetiracetam 500 Mg Tab) 1,000 mg PO TODAY@0800,2000 LYLY Stop: 10/31/23 19:59 Last Admin: 10/03/23 08:02 Dose: 1,000 mg Losartan Potassium (Losartan Potassium 50 Mg Tab) 50 mg PO DAILY LYLY Stop: 10/31/23 15:59 Last Admin: 10/03/23 08:02 Dose: 50 mg Miscellaneous (Carbohydrates For Hypoglycemia ) 15 - 30 gm PO UD PRN PRN Reason: Hypoglycemia Protocol Stop: 10/31/23 15:38 Last Admin: 10/02/23 17:13 Dose: 15 gm Montelukast Sodium (Montelukast Sodium 10 Mg Tablet) 10 mg PO DAILY LYLY Stop: 10/31/23 15:59 Last Admin: 10/03/23 08:02 Dose: 10 mg Olanzapine (Olanzapine 5 Mg Tablet) 5 mg PO BID LYLY Stop: 11/01/23 20:59 Last Admin: 10/03/23 08:02 Dose: 5 mg Ondansetron HCl (Ondansetron Inj 2 Mg/Ml 2 Ml Vial) 4 mg IV Q6H PRN PRN Reason: Nausea Stop: 10/31/23 15:38 Umeclidinium/Vilanterol (Umeclidinium/Vilanterol 62.5/25mcg 7 Puffs/Inhaler) 1 puffs INH DAILY LYLY Stop: 11/01/23 08:59 Last Admin: 10/03/23 08:03 Dose: 1 puffs (7) HTN (hypertension) Hypertension type: primary hypertension Qualified Code(s): I10 - Essential (primary) hypertension
--- NOTE | 2023-10-03 14:06 | CT Scan Report ---
ABDOMEN AND PELVIS CT WITHOUT CONTRAST CT DOSE: 1059.7 mGy.cm HISTORY: Diffuse abdominal pain. R/O Diverticulitis TECHNIQUE: Multiaxial CT images of the abdomen and pelvis were performed without contrast. A dose lo wering technique was utilized adhering to the principles of ALARA. COMPARISON STUDY: Abdomen and pelvis CT 08/15/2022. FINDINGS: Subtle tree-in-bud nodules seen within the lung bases suggestive of a mild infectious bronc hiolitis. No pneumoperitoneum. No pneumatosis. No acute fractures. Mildly distended gallbladder fille d with sludge and small stones. No gallbladder wall thickening or pericholecystic inflammatory change to suggest an acute cholecystitis at this time. The liver is slightly hyperdense. No hepatic or sple angela masses. The unenhanced pancreas and adrenal glands are unremarkable. No renal stones or hydroneph rosis. Calcified plaque within the normal caliber abdominal aorta. No retroperitoneal or pelvic lymph adenopathy. No pelvic free fluid. The bladder is mildly distended. No lateral wall thickening. The ut erus and bilateral adnexa are unremarkable. There is mild rectal wall thickening and mild perirectal fat stranding best seen on image 314. This favors a mild nonspecific proctitis. Colonic diverticulosi s. No evidence for acute diverticulitis. Moderate fecal retention. A few borderline dilated loops of small bowel seen throughout the abdomen. No transition point to suggest a bowel obstruction. There ar e few surgical clips within the right lower quadrant. The appendix is not identified and may be surgi akin absent. IMPRESSION: 1. Mild circumferential thickening within the rectum with mild perirectal fat stranding. This is cons istent with a nonspecific proctitis. 2. Colonic diverticulosis. No evidence for acute diverticulitis. 3. Mildly distended gallbladder containing stones and sludge. However, no gallbladder wall thickening . 4. Moderate fecal retention. 5. Subtle tree-in-bud nodules within the lung bases suggestive of a mild infectious bronchiolitis. ACT 112: Negative or not required by law. Electronically signed by: Alexis Herzog M.D. 10/03/2023 2:05 PM
[2023-10-03] MEDS: POLYETHYLENE (MIRALAX) 17 GM PACK PO SCH (15:08)
--- NOTE | 2023-10-03 18:07 | Electrocardiogram Report ---
Test Reason : Blood Pressure : / mmHG Vent. Rate : 071 BPM Atrial Rate : 071 BPM P-R Int : 216 ms QRS Dur : 112 ms QT Int : 442 ms P-R-T Axes : 063 130 009 degrees QTc Int : 480 ms Sinus rhythm with 1st degree A-V block Right axis deviation Abnormal ECG When compared with ECG of 26-JAN-2023 05:35, QRS axis Shifted right T wave inversion now evident in Inferior leads Confirmed by Enrrique Lawson ([id number]) on 10/03/2023 6:06:46 PM Referred By: REFERRED SELF Confirmed By:Enrrique Lawson
--- NOTE | 2023-10-03 18:10 | Electrocardiogram Report ---
Test Reason : Blood Pressure : / mmHG Vent. Rate : 061 BPM Atrial Rate : 061 BPM P-R Int : 218 ms QRS Dur : 114 ms QT Int : 472 ms P-R-T Axes : 071 110 022 degrees QTc Int : 475 ms Sinus rhythm with 1st degree A-V block Right axis deviation Abnormal ECG When compared with ECG of 01-OCT-2023 05:27, No significant change was found Confirmed by Enrrique Lawson ([id number]) on 10/03/2023 6:10:38 PM Referred By: REFERRED SELF Confirmed By:Enrrique Lwason
--- NOTE | 2023-10-03 20:45 | Electrocardiogram Report ---
Test Reason : Blood Pressure : / mmHG Vent. Rate : 059 BPM Atrial Rate : 059 BPM P-R Int : 208 ms QRS Dur : 110 ms QT Int : 484 ms P-R-T Axes : 075 102 040 degrees QTc Int : 479 ms Sinus bradycardia with 1st degree A-V block Rightward axis Septal infarct , age undetermined Abnormal ECG When compared with ECG of 01-OCT-2023 08:41, Septal infarct is now Present Confirmed by Enrrique Lawson ([id number]) on 10/03/2023 8:44:32 PM Referred By: REFERRED SELF Confirmed By:Enrrique Lawson
--- NOTE | 2023-10-03 20:54 | Electrocardiogram Report ---
Test Reason : Blood Pressure : / mmHG Vent. Rate : 071 BPM Atrial Rate : 071 BPM P-R Int : 224 ms QRS Dur : 052 ms QT Int : 234 ms P-R-T Axes : 000 -27 -87 degrees QTc Int : 255 ms Poor data quality, interpretation may be adversely affected Sinus rhythm with 1st degree A-V block Abnormal ECG When compared with ECG of 02-OCT-2023 05:58, No significant change Confirmed by Enrrique Lawson ([id number]) on 10/03/2023 8:54:17 PM Referred By: REFERRED SELF Confirmed By:Enrrique Lawson
--- NOTE | 2023-10-03 23:06 | Electrocardiogram Report ---
Test Reason : Blood Pressure : / mmHG Vent. Rate : 066 BPM Atrial Rate : 066 BPM P-R Int : 196 ms QRS Dur : 112 ms QT Int : 472 ms P-R-T Axes : 069 113 006 degrees QTc Int : 494 ms Poor data quality, interpretation may be adversely affected Normal sinus rhythm Right axis deviation Nonspecific T wave abnormality Prolonged QT Abnormal ECG When compared with ECG of 02-OCT-2023 08:32, Questionable change in QRS duration Confirmed by Enrrique Lawson ([id number]) on 10/03/2023 11:06:31 PM Referred By: REFERRED SELF Confirmed By:Enrrique Lawson
--- NOTE | 2023-10-04 10:57 | Hospitalist Progress Note ---
Date of Service October 04, 2023 Assessment & Plan (1) Acute confusion: Plan: Presented from [facility] with acute confusion She was noted to be frustrated and was hitting her chest and complaining of some chest pain also possible abdominal discomfort Required so far 2 doses of IM Zyprexa to control her anxiety Initial workup with CAT scan has been unremarkable Infectious workup has been ongoing Has been getting intravenous Zosyn and awaiting cultures Clinically much better and will continue to monitor No more confusion and she is back to her baseline Possible abdominal discomfort and will get CT of the abdomen to rule out diverticulitis If the scan is negative will discontinue antibiotic and she will be discharged to the place that she came from Her CT scan showed possible proctitis but no other significant findings No more confusion and she is back to her baseline (2) Cholelithiasis: Plan: Patient is a 68-year-old female with PMH 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 Upon further investigation patient was trying to communicate chest discomfort. Patient reports some nausea and had some loose stools earlier in the week per staff. No noted fever/chills. In ER patient afebrile, vitals stable. No leukocytosis. T bili: 0.8, AST: 72, ALT: 111, Lipase WNL. UA unremarkable Liver US: A few small stones and sludge within the gallbladder which is mildly distended. The technologist reported a positive sonographic Clark sign. The common bile duct is at the upper limits of normal measuring 7 mm. CXR: No acute infiltrate CT Head: no acute intracranial abnormality In ER she was given Ativan 0.5mg IV, Rocephin 2GM IV and Flagyl 500mg IV. Upon my evaluation in ER patient denies CP, SOB, abdominal pain. Noted mild tenderness to palpation RUQ on exam Positivity of acute cholecystitis has been ruled out by HIDA scan Surgery input and recommendation appreciated Minimal abdominal discomfort but no pain Awaiting CT scan of the abdomen and pelvis CT scan did show proctitis but no other significant findings Will give oral antibiotic for a total of 7 days (3) Elevated troponin: Plan: Presented with possible chest pain-No ACS Troponin: 32-->33. EKG some T wave flattening lead III, avf per my interpretation Denies current CP, SOB Monitor on telemetry Repeat EKG in am Will trend troponin If troponins uptrending or recurrent CP consider echo, and or cardiology consult Outpatient chart review: 09/08/2023 echo: EF: 60-64%, LV wall thickness mildly i ncreased, left atrium severely enlarged, grade 2 diastolic dysfunction, mild aortic valve sclerosis, mild MR, mild TR, no evidence of pulmonary hypertension (4) CVA (cerebral vascular accident): Plan: History CVA with residual expressive aphasia Patient has tablet to assist in communication Fall precautions Continue atorvastatin. Hold warfarin for now Besides expressive in fascia she does not have any other symptoms (5) Atrial fibrillation: Plan: Anticoagulated on warfarin Current sinus rhythm INR: 3.5 Hold warfarin INR in AM-Remains minimally elevated at 3.6 Continue amiodarone (6) T2DM (type 2 diabetes mellitus): Plan: A1c: 5.6 on 05/27/23 Hold home metformin, Mounjaro Novolog sliding scale correction per protocol A1c in AM-5.8 (7) HTN (hypertension): Plan: Continue losartan (8) HLD (hyperlipidemia): Plan: Continue atorvastatin (9) COPD (chronic obstructive pulmonary disease): (10) Asthma: Plan: No signs exacerbation On Nucala Continue home inhalers, montelukast. Albuterol neb prn (11) Seizure disorder: Plan: Denies recent seizure like activity Continue levetiracetam (12) Depression: Plan: History Depression, anxiety Continue bupropion DVT Prophylaxis INR: 3.5. SCDs for now We will check her INR today and dose Coumadin accordingly Admit med/tele Spoke with patient's daughter Dr Enid Patel on phone to give update of patient and condition. . (She is currently out of state on vacation but would like update of patient) DNR/DNI as per discussion with patient's daughter Dr Enid Patel who is also POA. Follows with Luz THOMPSON for routine care Discussed with the daughter 10/02/2023 Likely discharge this afternoon Admission and Anticipated Discharge Date Admission Date: October 01, 2023 Subjective 10/02/2023 The patient was seen and examined in medical telemetry unit She has dysphasia and was noted to be very anxious this morning Following IM Zyprexa condition improved She was looking much better and complained to have minimal abdominal discomfort/pain Denies any other significant symptoms and says that she has been feeling much better 10/03/2023 Patient was seen and examined in medical telemetry unit She has been much better today Likely complaining some abdominal discomfort specially lower quadrants No fever and no chills, no nausea no vomiting Has been eating well 10/04/2023 The patient was seen and examined in medical telemetry unit She has been doing much better and wants to be discharged Denies any more abdominal pain Denies any other symptoms Review of Systems Review of Systems: All systems reviewed and are unremarkable except as noted below Physical Exam Physical Exam: Lying in bed without any acute distress Constitutional: well developed, well nourished and + ill appearing Eyes: PERRL, conjunctivae normal, anicteric sclerae ENMT: external ear and nose normal, oropharynx normal Neck: trachea midline, no thyromegaly Respiratory: no respiratory distress Auscultation: lungs clear to auscultation bilaterally Cardiovascular: Rate/Rhythm: regular rate and regular rhythm; not tachycardic Heart Sounds: normal S1, normal S2 and + murmur Extremities: no edema Gastrointestinal (Abdomen): Inspection/Auscultation: normal bowel sounds; abdomen not distended Percussion/Palpation: abdomen soft; abdomen nontender (Minimally tender in the lower quadrants) Neurologic: Alert and awake. Has expressive aphasia from prior stroke Lymphatic: no cervical or axillary lymphadenopathy Results & Data Results & Data Vital Signs (Past 12 Hours) Vital Signs Temp Pulse Pulse Resp BP Pulse Ox O2 Del Method 10/04/23 07:41 36.7 C 65 16 129/79 94 Room Air 10/04/23 07:07 58 L 10/04/23 05:14 36.6 C 63 16 137/78 96 Room Air 10/04/23 00:00 65 10/03/23 23:16 36.7 C 65 18 169/88 H 95 Room Air Medications Administered Current Inpatient Medications Acetaminophen (Acetaminophen 325 Mg Tab) 650 mg PO Q4H PRN PRN Reason: Pain or Fever Stop: 10/31/23 15:38 Albuterol (Albuterol 0.083% Nebu Soln 3 Ml Vial) 2.5 mg NEB Q6H PRN; Protocol PRN Reason: Shortness Of Breath Or Wheezing Stop: 10/31/23 15:38 Amiodarone HCl (Amiodarone 200 Mg Tab) 200 mg PO DAILY [facility] Stop: 10/31/23 15:59 Last Admin: 10/04/23 07:57 Dose: 200 mg Atorvastatin Calcium (Atorvastatin 40 Mg Tab) 80 mg PO DAILY [facility] Stop: 11/01/23 08:59 Last Admin: 10/04/23 07:58 Dose: 80 mg Bupropion HCl (Bupropion Xl 150 Mg Tabcr) 150 mg PO DAILY [facility] Stop: 10/31/23 15:59 Last Admin: 10/04/23 07:58 Dose: 150 mg Dextrose (Dextrose 50% 50 Ml Syringe) 25 - 50 ml IV UD PRN; Protocol PRN Reason: Hypoglycemia Protocol Stop: 10/31/23 15:38 Last Admin: 10/01/23 16:58 Dose: 25 ml Fluticasone Furoate (Fluticasone Furoate 200mcg 14 Puffs/Inhaler) 1 puffs INH DAILY [facility] Stop: 11/01/23 08:59 Last Admin: 10/04/23 07:59 Dose: 1 puffs Glucagon (Glucagon For Inj 1 Mg Vial) 1 mg SQ UD PRN; Protocol PRN Reason: Hypoglycemia Protocol Stop: 10/31/23 15:38 Glucose (Glucose 40% Gel 15 Gm Tube) 15 - 30 gm PO UD PRN; Protocol PRN Reason: Hypoglycemia Protocol Stop: 10/31/23 15:38 Glucose (Glucose 10 Tab/Tube) 4 - 8 tab PO UD PRN; Protocol PRN Reason: Hypoglycemia Treatment Stop: 10/31/23 15:38 Hydromorphone HCl (Hydromorphone Inj 0.5 Mg/0.5 Ml Syr) 0.25 mg IV Q6H PRN PRN Reason: Pain Stop: 10/15/23 16:29 Last Admin: 10/03/23 21:08 Dose: 0.25 mg Piperacillin Sod/Tazobactam (Sod 4.5 gm/ Dextrose) 100 mls @ 25 mls/hr IV Q8H [facility]; Protocol Stop: 10/11/23 21:59 Last Infusion: 10/04/23 09:48 Dose: Infused Insulin Aspart (Insulin Aspart Per Unit Charge) 0 units SC ACHS [facility] Stop: 10/31/23 16:29 Last Admin: 10/01/23 17:09 Dose: Not Given Levetiracetam (Levetiracetam 500 Mg Tab) 1,000 mg PO TODAY@0800,1999 [facility] Stop: 10/31/23 19:59 Last Admin: 10/04/23 07:58 Dose: 1,000 mg Losartan Potassium (Losartan Potassium 50 Mg Tab) 50 mg PO DAILY [facility] Stop: 10/31/23 15:59 Last Admin: 10/04/23 07:58 Dose: 50 mg Miscellaneous (Carbohydrates For Hypoglycemia ) 15 - 30 gm PO UD PRN PRN Reason: Hypoglycemia Protocol Stop: 10/31/23 15:38 Last Admin: 10/02/23 17:13 Dose: 15 gm Montelukast Sodium (Montelukast Sodium 10 Mg Tablet) 10 mg PO DAILY [facility] Stop: 10/31/23 15:59 Last Admin: 10/04/23 07:58 Dose: 10 mg Olanzapine (Olanzapine 5 Mg Tablet) 5 mg PO BID [facility] Stop: 11/01/23 20:59 Last Admin: 10/04/23 07:58 Dose: 5 mg Ondansetron HCl (Ondansetron Inj 2 Mg/Ml 2 Ml Vial) 4 mg IV Q6H PRN PRN Reason: Nausea Stop: 10/31/23 15:38 Polyethylene Glycol (Polyethylene (Miralax) 17 Gm Pack) 17 gm PO DAILY [facility] Stop: 11/02/23 14:29 Last Admin: 10/04/23 07:59 Dose: 17 gm Umeclidinium/Vilanterol (Umeclidinium/Vilanterol 62.5/25mcg 7 Puffs/Inhaler) 1 puffs INH DAILY [facility] Stop: 11/01/23 08:59 Last Admin: 10/04/23 07:58 Dose: 1 puffs (7) HTN (hypertension) Hypertension type: primary hypertension Qualified Code(s): I10 - Essential (primary) hypertension
[2023-10-04 12:12] LABS: Prothrombin Time 38.1 Seconds (9.0-12.0)
[2023-10-04] MEDS ORDERED: AMOXICILLIN/CLAVULANATE 500 MG TAB PO ONE (15:33)
--- NOTE | 2023-10-05 07:27 | Discharge Summary ---
Date of Service October 05, 2023 Admission HPI Per Admitting Provider Patient is a 68-year-old female with PMH CVA with residual expressive aphasia, HTN, HLD, CAD, atrial fibrillation anticoagulated on warfarin, pulmonary hypertension, DM II, asthma, COPD, LILI, seizure disorder, depression, anxiety who presented to ER from [facility] with c/o patient "hitting herself" this morning. Spoke to staff who reports early this morning patient was hitting her phone and then was hitting herself in head with phone and hitting her chest. Seems patient became frustrated this morning as she could not communicate well per [facility] staff which is not uncommon however hitting herself is out of the ordinary. Staff report there was no aggression towards others. Staff states no medications today. Staff reports had 2-3 loose stools daily recently but denies diarrhea and didn't have BM today that they are aware of. They are unaware of any fever/chills, vomiting, cough, or noted SOB. Staff report patient has normal diet but foods are cut up. They haven't noted any choking episodes. Upon ER arrival it is reported patient seemed agitated but was then later determined patient appeared frustrated that couldn't communicate and pointed to chest as source of pain. In ER she was given Ativan 0.5mg IV, Rocephin 2GM IV and Flagyl 500mg IV. Upon my evaluation in ER patient shakes her head "no" when asked if having chest pain or abdominal pain. She says "yes" to nausea but denies vomiting, VANESSA, SOB, extremity edema, rhinorrhea, sore throat. Outpatient chart review: 09/08/2023 echo: EF: 60-64%, LV wall thickness mildly increased, left atrium severely enlarged, grade 2 diastolic dysfunction, mild aortic valve sclerosis, mild MR, mild TR, no evidence of pulmonary hypertension Admission Exam Per Admitting Provider Physical Exam: General: non ill appearing, +becomes tearful when attempting to communicate, WDWN Head: normocephalic, atraumatic Eyes: PERRL, EOM's intact, conjunctiva non-injected, anicteric ENT: normal inspection external ears, nose, mucous membranes moist Neck: supple, trachea midline Lungs: clear, no respiratory distress, no wheezing/rhonchi/rales CV: RRR, + murmur, no pretibial edema Abd: normal BS, soft, +noted minimal facial wincing with deep palpation of RUQ, no guarding or other abdominal discomfort noted Ext: no cyanosis, no calf tenderness Neuro: A&O x 3, +expressive aphasia, +tearful at times Skin: warm, dry Principal Diagnosis Transient confusion Proctitis Colitis lithiasis without cholecystitis Atrial fibrillation on Coumadin Discharge Exam Lying in bed without any acute distress Constitutional well developed, well nourished and + ill appearing Eyes PERRL, conjunctivae normal, anicteric sclerae ENMT external ear and nose normal, oropharynx normal Neck trachea midline, no thyromegaly Respiratory no respiratory distress Auscultation: lungs clear to auscultation bilaterally Cardiovascular Rate/Rhythm: regular rate and regular rhythm; not tachycardic Heart Sounds: normal S1, normal S2 and + murmur Extremities: no edema Gastrointestinal (Abdomen) Inspection/Auscultation: normal bowel sounds; abdomen not distended Percussion/Palpation: abdomen soft; abdomen nontender (Minimally tender in the lower quadrants) Lymphatic no cervical or axillary lymphadenopathy Discharge Data Allergies Allergy/AdvReac Type Severity Reaction Status Date / Time erythromycin base Allergy Severe Rash Verified 08/15/22 15:20 Sulfa (Sulfonamide Allergy Severe Rash Verified 08/15/22 15:20 Antibiotics) aspirin Allergy Intermediate Rash Verified 08/15/22 15:20 latex Allergy Intermediate RASH Verified 08/15/22 15:20 Consultations 10/01/23 13:47 Consult General Surgery Routine Ordered Studies 10/01/23 07:23 CT head/brain wo con Stat 10/01/23 10:55 US RUQ [US liver] Stat 10/03/23 12:21 CT Abd and Pelvis [CT abd pelvis wo con] Urgent Hospital Course (1) Acute confusion: Presented from [facility] with acute confusion She was noted to be frustrated and was hitting her chest and complaining of some chest pain also possible abdominal discomfort Required so far 2 doses of IM Zyprexa to control her anxiety Initial workup with CAT scan has been unremarkable Infectious workup has been ongoing Has been getting intravenous Zosyn and awaiting cultures Clinically much better and will continue to monitor No more confusion and she is back to her baseline Possible abdominal discomfort and will get CT of the abdomen to rule out diverticulitis If the scan is negative will discontinue antibiotic and she will be discharged to the place that she came from Her CT scan showed possible proctitis but no other significant findings No more confusion and she is back to her baseline (2) Cholelithiasis: Patient is a 68-year-old female with PMH 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 Upon further investigation patient was trying to communicate chest discomfort. Patient reports some nausea and had some loose stools earlier in the week per staff. No noted fever/chills. In ER patient afebrile, vitals stable. No leukocytosis. T bili: 0.8, AST: 72, ALT: 111, Lipase WNL. UA unremarkable Liver US: A few small stones and sludge within the gallbladder which is mildly distended. The technologist reported a positive sonographic Clark sign. The common bile duct is at the upper limits of normal measuring 7 mm. CXR: No acute infiltrate CT Head: no acute intracranial abnormality In ER she was given Ativan 0.5mg IV, Rocephin 2GM IV and Flagyl 500mg IV. Upon my evaluation in ER patient denies CP, SOB, abdominal pain. Noted mild tenderness to palpation RUQ on exam Positivity of acute cholecystitis has been ruled out by HIDA scan Surgery input and recommendation appreciated Minimal abdominal discomfort but no pain Awaiting CT scan of the abdomen and pelvis CT scan did show proctitis but no other significant findings Will give oral antibiotic for a total of 7 days (3) Elevated troponin: Presented with possible chest pain-No ACS Troponin: 32-->33. EKG some T wave flattening lead III, avf per my interpretation Denies current CP, SOB Monitor on telemetry Repeat EKG in am Will trend troponin If troponins uptrending or recurrent CP consider echo, and or cardiology consult Outpatient chart review: 09/08/2023 echo: EF: 60-64%, LV wall thickness mildly increased, left atrium severely enlarged, grade 2 diastolic dysfunction, mild aortic valve sclerosis, mild MR, mild TR, no evidence of pulmonary hypertension (4) CVA (cerebral vascular accident): History CVA with residual expressive aphasia Patient has tablet to assist in communication Fall precautions Continue atorvastatin. Hold warfarin for now Besides expressive in fascia she does not have any other symptoms (5) Atrial fibrillation: Anticoagulated on warfarin Current sinus rhythm INR: 3.5 Hold warfarin INR in AM-Remains minimally elevated at 3.6 Continue amiodarone (6) T2DM (type 2 diabetes mellitus): A1c: 5.6 on 05/27/23 Hold home metformin, Mounjaro Novolog sliding scale correction per protocol A1c in AM-5.8 (7) HTN (hypertension): Continue losartan (8) HLD (hyperlipidemia): Continue atorvastatin (9) COPD (chronic obstructive pulmonary disease): (10) Asthma: No signs exacerbation On Nucala Continue home inhalers, montelukast. Albuterol neb prn (11) Seizure disorder: Denies recent seizure like activity Continue levetiracetam (12) Depression: History Depression, anxiety Continue bupropion DVT Prophylaxis INR: 3.5. SCDs for now We will check her INR today and dose Coumadin accordingly Admit med/tele Spoke with patient's daughter Dr Enid Patel on phone to give update of patient and condition. . (She is currently out of state on vacation but would like update of patient) DNR/DNI as per discussion with patient's daughter Dr Enid Patel who is also POA. Follows with [facility] for routine care Discussed with the daughter 10/02/2023 Likely discharge this afternoon Total Time Total Time Spent Total Time Spent (In Minutes): 35 minutes Discharge Plan Discharge Items Patient Disposition: Transfer [facility] Reason For Visit: CP Discharge Diagnosis: Transient confusion Proctitis Colitis lithiasis without cholecystitis Atrial fibrillation on Coumadin Condition on Discharge: Fair Activity: Resume your previous activity Non-emergency contact: Primary Care Provider Call non-emergency contact if: you have any medication questions and your symptoms worsen Follow-up/Referrals: Garret Perry MD [Primary Care Provider] - (Please make an appointment with your PCP within 7 days) Diet: Other - See Diet Comment Diet Comment: Continue the diet as she was getting in the facility Addtl Attending Provider Instructions: Please take precautions to avoid falls No change in your current medications Except the antibiotic as mentioned below Drink more fluid Take the antibiotic for the next 7 days Check your INR on Friday And until then do not take Coumadin although the instruction says to continue to continue Pending Studies at Discharge: No Stand-Alone Forms: My [facility] Skilled Items Patient informed of condition?: Yes DNR: Yes Discharge Level of Care: Skilled Communicable Disease: No Discharge Prognosis: Stable Lines: None Urinary Catheter: No Medications and DC Order Prescriptions: New amoxicillin-pot clavulanate [Augmentin] 500-125 mg tablet 1 tab PO BID Qty: 14 0RF Continued losartan 50 mg tablet 50 mg PO .DAILY@0800 metformin 500 mg tablet 500 mg PO .DAILY@0800,1700 montelukast 10 mg tablet 10 mg PO .DAILY@0800 Trelegy Ellipta 200-62.5-25 mcg blister with device 1 inh INHALATION .DAILY@0800 Mounjaro 2.5 mg/0.5 mL pen injector 5 mg SUBCUT .@0800 ON MONDAYS acetaminophen 325 mg Tablet 650 mg PO Q6H MDD 3GMS APAP/24H PRN (Reason: Pain) warfarin 4 mg tablet 4 mg PO .@1700 SETHI,,PRESLEY,SAT warfarin 2 mg tablet 2 mg PO .@1700 MON,FRI,FRI docusate sodium [Colace] 100 mg Capsule 100 mg PO BID PRN (Reason: Constipation) albuterol sulfate 90 mcg/actuation HFA aerosol inhaler 2 puff INHALATION Q4H PRN (Reason: SOB/WHEEZING) potassium chloride 10 mEq tablet,ER particles/crystals 10 meq PO .@0800 FRI,FRI,FRI Nucala 100 mg/mL Auto-Injector 1 mg SUBCUT .@0800 Q 4 WEEKS Rx Instructions: on day 15 atorvastatin 80 mg tablet 80 mg PO .DAILY@0800 amiodarone 200 mg tablet 200 mg PO .DAILY@0800 bupropion HCl 150 mg tablet extended release 24 hr 150 mg PO .DAILY@0800 levetiracetam [Keppra] 1,000 mg tablet 1,000 mg PO .DAILY@799,1999 Discharge Orders: Discharge Order (Routine); Ordered 10/04/23 Ordered By: Arturo Boland Admission Data Admit Date/Time: 10/01/23 13:23 Attending Provider: Arturo Boland Admit Provider: Jessica Adler Primary Care Provider: Garret Perry Other Providers: Benjy Gibson; Jessica Adler Other Interventions: Discharge Summary Assessment (RN) Last Done: 10/04/23 15:36
== END 2023-10-04 16:13 | DRG 445 ==
LOC: ED 05:20 → SUATTDRO 13:23 → EDINP 13:23 → 2N 21:44

== ENCOUNTER 2023-10-07 14:06 | Inpatient (IN) ==
--- NOTE | 2023-10-07 14:14 | Emergency Department Note ---
Impression & Plan Abdominal pain, Transaminitis ED Provider Note NAME: PALLAVI WIGGINS AGE: 68 SEX: F : 1955 ARRIVES VIA: Ambulance INFORMANT: Patient ED PROVIDER(S): Michele Coronado DO CHIEF COMPLAINT: Abdominal pain HPI: Patient is a 68-year-old female with a PMH CVA with residual expressive aphasia, HTN, HLD, CAD, atrial fibrillation,anticoagulated on warfarin, pulmonary hypertension, DM II, asthma, COPD, LILI, seizure disorder, depression, anxiety who presented to ER from [facility] for right upper quadrant abdominal pain. Per report from EMS they note that has been present for the past 2 days. Patient notes that it is associated with nausea. She denies any previous abdominal surgeries. She answers all questions via nodding her head yes and no secondary to the previous stroke. She denies any dysuria, urgency, or frequency. No trouble moving her bowels. No vomiting. She notes that does not change with eating or drinking. ADDITIONAL HISTORY OBTAINED: Per HPI Chronic Medical/Social Conditions Affecting Care: Per HPI PAST MEDICAL HISTORY:See Below PAST SURGICAL HISTORY:See Below FAMILY HISTORY:See Below SOCIAL HISTORY:See Below HOME MEDICATIONS:See Below ALLERGIES:See Below VITALS:See Below PHYSICAL EXAMINATION: GENERAL: Sitting up in bed, alert, chronically ill-appearing, disheveled holding right upper quadrant EYE EXAM: normal conjunctiva. PERRL and EOM's grossly intact. OROPHARYNX: mucous membranes are dry NECK: supple, no nuchal rigidity, no adenopathy, non-tender LUNGS: Clear to auscultation. Normal chest wall mechanics HEART: no murmurs, S1 normal and S2 normal ABDOMEN: abdomen soft, TTP in RUQ, normo-active bowel sounds, no masses, no rebound or guarding. UPPER EXTREMITIES: upper extremities are grossly normal. LOWER EXTREMITIES: No pitting edema. NEURO EXAM: Normal sensorium, cranial nerves II-XII grossly intact, normal speech, no gross weakness of arms, no gross weakness of legs. MEDICAL DECISION MAKING: Patient is a 68-year-old female who presents ER for the above-stated complaint. IV was established medicals obtained. Labs show no significant leukocytosis or anemia. INR at 1.8. BMP along LFTs shows mild transaminitis with an ALT of 65. Lipase is normal. UA was clean. External records reviewed from recent admission earlier this month patient was evaluated by surgery and had a HIDA scan that was deemed not to be the gallbladder. Ultrasound showed equivocal cholecystitis but no significant change from previous admission. I discussed with general surgery. They recommended admission to medicine and obstruction series. Obstruction series was reviewed and showed no obstruction and recommended mag citrate. Discussed case with the hospitalist for further evaluation management and treatment. Consults/Care Managements Discussions: Per MDM Triage Nursing notes reviewed. Limited review of prior medical records performed Vital Signs: reviewed and remarkable for no significant abnormalities Differential diagnosis: Differential diagnoses includes but is not limited to gastritis, peptic ulcer disease, GERD, gallbladder disease, pancreatitis, small bowel obstruction, appendicitis, diverticulitis, hernia, urinary tract infection, torsion, perforation, trauma, infectious. ER treatment provided: See below Diagnostics interpreted by me include EKG and cardiac monitoring as listed below: -Cardiac Monitoring: An order was placed for continuous cardiac monitoring. The monitor shows a rate of 70 with sinus rhythm. -Laboratory studies:Interpreted by me as stated above in MDM and shown below. Imaging studies: Xrays: As interpreted by me: Obstruction series shows no obvious obstruction CTs show: Ultrasound of the gallbladder as described above Procedures:none Critical Care: None Past Med/Surg History Problem List (Updated 10/07/23 @ 20:54 by Michele Coronado DO) Transaminitis (Acute) Abdominal pain (Acute) Acute confusion Seizure disorder Depression Asthma inhaler daily/nebulizer prn COPD (chronic obstructive pulmonary disease) Per records CVA (cerebral vascular accident) Elevated troponin Aphasia (Acute) Cholelithiasis (Acute) Agitation (Acute) Cholelithiasis Morbid obesity HTN (hypertension) Acute ischemic left MCA stroke Tachycardia-bradycardia syndrome Encephalopathy Symptomatic bradycardia Required emergent intubation Seizure-like activity Paroxysmal atrial fibrillation Acute CVA (cerebrovascular accident) (Acute) Dyslipidemia Acute right MCA stroke Hypomagnesemia Sleep apnea CPAP T2DM (type 2 diabetes mellitus) Involuntary movements Stroke-like symptoms (Acute) Environmental allergies (Chronic) Atrial fibrillation with RVR (Acute) Pulmonary nodule (Chronic) Encounter for pre-operative examination HLD (hyperlipidemia) (Chronic) Atrial fibrillation (Chronic) follows with Dr. Romero--on amiodarone, warfarin HTN (hypertension) (Chronic) H/O migraine (Chronic) Hepatitis C (Chronic) IN REMISSION ADD (attention deficit disorder) (Chronic) Mitral regurgitation (Chronic) Medical History (Updated 10/07/23 @ 20:54 by Michele Coronado DO) Urinary retention Left ventricular systolic dysfunction (LVSD) History of dynamic ventricular outflow tract obstruction No significant LV outflow tract obstruction noted on resting ECHO 11/2021 per cardio records Cardiomyopathy Tachycardiac vs idopathic CM (EF 48% in 2018- improved to 55% in 11/2021). Negative nuclear stress test 2017 and 01/2022 Morbid obesity with BMI of 40.0-44.9, adult Prediabetes per pt reason for metformin On anticoagulant therapy eliquis daily Hyperthyroidism RADIOACTIVE IODINE TREATMENT Cardiac murmur Surgical History History of esophagogastroduodenoscopy (EGD) with EUS @ [facility] 04/19/22 History of tooth extraction History of cardiac radiofrequency ablation x2--[place] [facility] [place] History of appendectomy History of colonoscopy History of cardioversion x4--last 07/24/22---follows with Dr. 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 Beliefs That Will Affect Care: None Current Living Situation: Senior Care Current Living Situation Comment: from [facility] Feels Safe at Home: Yes Assistive Devices: Cane Allergies Allergies Allergy/AdvReac Type Severity Reaction Status Date / Time erythromycin base Allergy Severe Rash Verified 10/07/23 16:28 Sulfa (Sulfonamide Allergy Severe Rash Verified 10/07/23 16:28 Antibiotics) aspirin Allergy Intermediate Rash Verified 10/07/23 16:28 latex Allergy Intermediate RASH Verified 10/07/23 16:28 Home Meds Home Medications Medication Instructions Recorded Confirmed fluticasone fur. 200 mcg-umeclid 1 inh inhalation QAM 01/23/23 10/07/23 62.5 mcg-vilant 25 mcg inhalat.powder (Trelegy Ellipta) losartan 50 mg tablet 50 mg PO QAM 01/23/23 10/07/23 metformin 500 mg tablet 500 mg PO BID17 01/23/23 10/07/23 montelukast 10 mg tablet 10 mg PO QAM 01/23/23 10/07/23 acetaminophen 325 mg tablet 650 mg PO Q6H PRN Pain 10/01/23 10/07/23 albuterol sulfate 90 mcg/actuation 2 puff inhalation Q4H PRN 10/01/23 10/07/23 aerosol inhaler SOB/WHEEZING amiodarone 200 mg tablet 200 mg PO QAM 10/01/23 10/07/23 atorvastatin 80 mg tablet 80 mg PO QAM 10/01/23 10/07/23 bupropion HCl 150 mg 24 hr tablet, 150 mg PO QAM 10/01/23 10/07/23 extended release docusate sodium 100 mg capsule 100 mg PO BID PRN Constipation 10/01/23 10/07/23 (Colace) levetiracetam 1,000 mg tablet 1,000 mg PO Q12H 10/01/23 10/07/23 (Keppra) mepolizumab 100 mg/mL subcutaneous 1 mg subcut Q4WK 10/01/23 10/07/23 auto-injector (Nucala) potassium chloride 10 mEq 10 meq PO 3XWK 10/01/23 10/07/23 tablet,extended release(part/cryst) warfarin 2 mg tablet 2 mg PO 3XWK 10/01/23 10/07/23 warfarin 4 mg tablet 4 mg PO 4XWK 10/01/23 10/07/23 polyethylene glycol 3350 17 17 g PO DAILY PRN Constipation 10/07/23 10/07/23 gram/dose oral powder (Miralax) tirzepatide 5 mg/0.5 mL 5 mg subcut WK 10/07/23 10/07/23 subcutaneous pen injector (Harsh) Previous Rx's Medication Instructions Recorded amoxicillin 500 mg-potassium 1 tab PO BID #14 tabs 10/04/23 clavulanate 125 mg tablet (Augmentin) Results & Data (ED) Vital Signs Vital Signs - 24 hr 10/07/23 14:37 10/07/23 14:37 10/07/23 14:57 Temperature 37 C Temperature Source Oral Pulse Rate 64 62 Pulse Rate from SpO2 Sensor 62 Respiratory Rate 18 19 Respiratory Effort / Characteristics Non-Labored Spontaneous Respiratory Depth Normal Respiratory Pattern Regular Blood Pressure 163/84 H Blood Pressure Mean 110 Pulse Oximetry 96 96 95 Oxygen Delivery Method Room Air Room Air Sepsis Recent Fever Within 48 Hours No Sepsis New/Unexplained Change in Mental Status No Sepsis Action Taken by Nursing No Action Required 10/07/23 15:00 10/07/23 15:03 10/07/23 15:24 Temperature Temperature Source Pulse Rate 68 Pulse Rate from SpO2 Sensor 62 Respiratory Rate 21 22 Respiratory Effort / Characteristics Respiratory Depth Respiratory Pattern Blood Pressure 140/72 Blood Pressure Mean 103 Pulse Oximetry 96 Oxygen Delivery Method Sepsis Recent Fever Within 48 Hours Sepsis New/Unexplained Change in Mental Status Sepsis Action Taken by Nursing 10/07/23 15:30 10/07/23 15:31 10/07/23 15:33 Temperature Temperature Source Pulse Rate 60 101 H Pulse Rate from SpO2 Sensor 66 Respiratory Rate Respiratory Effort / Characteristics Respiratory Depth Respiratory Pattern Blood Pressure 150/92 H Blood Pressure Mean 110 Pulse Oximetry 98 Oxygen Delivery Method Sepsis Recent Fever Within 48 Hours Sepsis New/Unexplained Change in Mental Status Sepsis Action Taken by Nursing 10/07/23 19:30 Temperature Temperature Source Pulse Rate 72 Pulse Rate from SpO2 Sensor Respiratory Rate Respiratory Effort / Characteristics Respiratory Depth Respiratory Pattern Blood Pressure Blood Pressure Mean Pulse Oximetry Oxygen Delivery Method Sepsis Recent Fever Within 48 Hours Sepsis New/Unexplained Change in Mental Status Sepsis Action Taken by Nursing Laboratory Data 10/07/23 14:36 10/07/23 15:25 Lab Results 10/07/23 10/07/23 10/07/23 Range/Units 14:36 15:25 15:26 WBC 6.44 (4.8-10.8) K/ul RBC 4.26 (4.20-5.40) M/uL Hgb 13.2 (12.0-16.0) g/dl Hct 39.6 (37.0-47.0) % MCV 93.0 (80.0-100.0) fL MCH 31.0 (25.0-34.0) pg MCHC 33.3 (32.0-36.0) g/dL RDW Std Deviation 50.0 H (36.4-46.3) fL RDW Coeff of Yeyo 14.7 H (11.5-14.5) % Plt Count 291 (130-400) K/uL MPV 9.8 (9.4-12.4) fL Immature Gran % (Auto) 0.5 % Neut % (Auto) 65.7 % Lymph % (Auto) 22.2 % [place] % (Auto) 10.2 % Eos % (Auto) 0.6 % Baso % (Auto) 0.8 % Neut # (Auto) 4.23 (1.40-6.50) K/uL Lymph # (Auto) 1.43 (1.20-3.40) K/uL [place] # (Auto) 0.66 H (0.11-0.59) K/uL Eos # (Auto) 0.04 (0.00-0.50) K/uL Baso # (Auto) 0.05 (0.00-0.20) K/uL Immature Gran # (Auto) 0.03 (0.01-0.20) K/uL PT 18.5 H (9.0-12.0) Seconds INR 1.8 H (0.9-1.1) APTT 36 H (21-31) Seconds PTT Ratio 1.3 Sodium 137 (136-145) mmol/L Potassium TNP 3.7 Chloride 103 (98-107) mmol/L Carbon Dioxide 24 (21-32) mmol/L Anion Gap 10 (3-11) BUN 12 (6-23) mg/dl Creatinine 1.02 (0.6-1.2) mg/dl Est Cr Clr Drug Dosing 55.1 ml/min Est GFR ( Amer) 65.0 ml/min Est GFR (Non-Af Amer) 56.1 ml/min BUN/Creatinine Ratio 11.8 (10-20) Glucose 90 (70-99(Fasting)) mg/dl Calcium 10.1 (8.6-10.3) mg/dl Total Bilirubin 0.8 (0.2-1.0) mg/dl AST TNP 43 H ALT 65 H (7-52) U/L Alkaline Phosphatase 62 (34-104) U/L Total Protein 7.4 (6.0-8.3) gm/dl Albumin 4.5 (3.4-5.0) gm/dl Globulin 2.9 (2.5-4.0) gm/dl Albumin/Globulin Ratio 1.6 (0.9-2) Lipase 23 (11-82) U/L Urine Color Urine Appearance (Clear) Urine pH (4.5-7.5) Ur Specific [place] (1.000-1.030) Urine Protein (Negative) Urine Glucose (UA) (Negative) Urine Ketones (Negative) Urine Blood (Negative) Urine Nitrite (Negative) Urine Bilirubin (Negative) Urine Urobilinogen (Negative) Ur Leukocyte Esterase (Negative) Urine WBC (Auto) (0-5) /hpf Urine RBC (Auto) (0-2) /hpf U Hyaline Cast (Auto) (0-2) /lpf U Epithel Cells (Auto) (0-2) /hpf Urine Bacteria (Auto) (None Seen) 10/07/23 Range/Units 16:31 WBC (4.8-10.8) K/ul RBC (4.20-5.40) M/uL Hgb (12.0-16.0) g/dl Hct (37.0-47.0) % MCV (80.0-100.0) fL MCH (25.0-34.0) pg MCHC (32.0-36.0) g/dL RDW Std Deviation (36.4-46.3) fL RDW Coeff of Yeyo (11.5-14.5) % Plt Count (130-400) K/uL MPV (9.4-12.4) fL Immature Gran % (Auto) % Neut % (Auto) % Lymph % (Auto) % [place] % (Auto) % Eos % (Auto) % Baso % (Auto) % Neut # (Auto) (1.40-6.50) K/uL Lymph # (Auto) (1.20-3.40) K/uL [place] # (Auto) (0.11-0.59) K/uL Eos # (Auto) (0.00-0.50) K/uL Baso # (Auto) (0.00-0.20) K/uL Immature Gran # (Auto) (0.01-0.20) K/uL PT (9.0-12.0) Seconds INR (0.9-1.1) APTT (21-31) Seconds PTT Ratio Sodium (136-145) mmol/L Potassium Chloride (98-107) mmol/L Carbon Dioxide (21-32) mmol/L Anion Gap (3-11) BUN (6-23) mg/dl Creatinine (0.6-1.2) mg/dl Est Cr Clr Drug Dosing ml/min Est GFR ( Amer) ml/min Est GFR (Non-Af Amer) ml/min BUN/Creatinine Ratio (10-20) Glucose (70-99(Fasting)) mg/dl Calcium (8.6-10.3) mg/dl Total Bilirubin (0.2-1.0) mg/dl AST ALT (7-52) U/L Alkaline Phosphatase (34-104) U/L Total Protein (6.0-8.3) gm/dl Albumin (3.4-5.0) gm/dl Globulin (2.5-4.0) gm/dl Albumin/Globulin Ratio (0.9-2) Lipase (11-82) U/L Urine Color Yellow Urine Appearance Clear (Clear) Urine pH 5.5 (4.5-7.5) Ur Specific [place] 1.010 (1.000-1.030) Urine Protein Negative (Negative) Urine Glucose (UA) Negative (Negative) Urine Ketones Negative (Negative) Urine Blood Negative (Negative) Urine Nitrite Negative (Negative) Urine Bilirubin Negative (Negative) Urine Urobilinogen Negative (Negative) Ur Leukocyte Esterase Trace H (Negative) Urine WBC (Auto) 0-5 (0-5) /hpf Urine RBC (Auto) 0-2 (0-2) /hpf U Hyaline Cast (Auto) 0-2 (0-2) /lpf U Epithel Cells (Auto) 3-5 H (0-2) /hpf Urine Bacteria (Auto) None Seen (None Seen) Administered Medications Amoxicillin/Clavulanate Potassium (Amoxicillin/Clavulanate 875 Mg Tab) 1 tab PO Q12H [facility] Stop: 10/17/23 19:59 Last Admin: 10/07/23 19:36 Dose: 1 tab Documented By: KMS Sodium Chloride (Nss) 1,000 mls @ 80 mls/hr IV .[id number] [facility] Stop: 11/06/23 17:44 Last Admin: 10/07/23 17:50 Dose: 80 mls/hr Documented By: JESSIKA Heparin Sodium/Dextrose (Heparin Sodium/Dextrose) 25,000 units in 500 mls @ 24 mls/hr IV .[id number] LYLY; Protocol Stop: 11/06/23 18:59 Last Admin: 10/07/23 20:02 Dose: 1,200 units/hr, 24 mls/hr Documented By: LORI Co-signed By: BARBARA Polyethylene Glycol (Polyethylene (Miralax) 17 Gm Pack) 17 gm PO DAILY LYLY Stop: 11/06/23 18:44 Last Admin: 10/07/23 19:36 Dose: 17 gm Documented By: LORI Discontinued Medications Hydromorphone HCl (Hydromorphone Inj 0.5 Mg/0.5 Ml Syr) 0.25 mg IV NOW STA Stop: 10/07/23 17:36 Last Admin: 10/07/23 17:46 Dose: 0.25 mg Documented By: JESSIKA Sodium Chloride (Nss) 1,000 mls @ 999 mls/hr IV .Q1H1M ONE Stop: 10/07/23 15:17 Last Infusion: 10/07/23 16:29 Dose: Infused Documented By: Admin: 10/07/23 14:50 Dose: 999 mls/hr Documented By: DEZ Magnesium Citrate (Magnesium Citrate 296 Ml/Btl) 296 ml PO NOW STA Stop: 10/07/23 18:16 Last Admin: 10/07/23 19:36 Dose: 296 ml Documented By: LORI Ondansetron HCl (Ondansetron Inj 2 Mg/Ml 2 Ml Vial) 4 mg IV NOW STA Stop: 10/07/23 14:18 Last Admin: 10/07/23 14:50 Dose: 4 mg Documented By: DEZ Ondansetron HCl (Ondansetron Inj 2 Mg/Ml 2 Ml Vial) 4 mg IV NOW STA Stop: 10/07/23 17:36 Last Admin: 10/07/23 17:48 Dose: 4 mg Documented By: JESSIKA Imaging Data Radiologist's Impression: Gallbladder Ultrasound 10/07/23 14:17 US gallbladder CLINICAL HISTORY: Right upper quadrant abdominal pain. COMPARISON STUDY: Right upper quadrant ultrasound and nuclear medicine hepatobiliary scan October 01, 2023. CT of the abdomen and pelvis October 03, 2023. FINDINGS: No hepatic lesions are identified. Mild dilatation of the common bile duct measuring 7 mm is unchanged since ultrasound of October 01, 2023. Several gallstones within the gallbladder are noted. The gallbladder is distended, as before. Positive sonographic Clark sign was reported by the technologist. There is no gallbladder wall thickening. Mild right collecting system dilatation is unchanged. The pancreas is obscured. IMPRESSION: 1. Cholelithiasis with mild gallbladder distention. Sonographic Clark sign reported by the technologist. The findings are equivocal for acute cholecystitis given similar findings on ultrasound of October 01, 2023. If indicated, a repeat nuclear medicine hepatobiliary scan could be obtained. 2. No change in minimal dilatation of the common bile duct. ACT 112: Negative or not required by law. Electronically signed by: Pelon Osuna M.D. 10/07/2023 4:28 PM Chest/Abdomen X-ray 10/07/23 16:46 XR abdomen 2V w PA chest CLINICAL HISTORY: ? obs TECHNIQUE: 2 views of the abdomen were obtained. A single view of the chest was obtained. Comparison: None available at the time of this dictation. FINDINGS: No lines and tubes are seen. Calcified aortic knob is seen. The lungs are clear. No evidence of pleural effusion or pneumothorax. The osseous structures are grossly unremarkable. The bowel gas pattern is nonobstructive. Small stool burden is seen. IMPRESSION: Nonobstructive bowel gas pattern. ACT 112: Negative or not required by law. Electronically signed by: Chong Cook M.D. 10/07/2023 5:21 PM Discharge Plan Visit Data Chief Complaint: Abdominal Pain ED Provider: Michele Coronado Discharge Problem: Abdominal pain, Transaminitis Patient Disposition: Admitted As Inpatient Discharge Instructions Interventions: ED Discharge Assessment Last Done: 10/07/23 20:15 Forms Stand Alone Forms: My [facility] [employer] Prescriptions Prescriptions: No Action losartan 50 mg tablet 50 mg PO QAM metformin 500 mg tablet 500 mg PO BID17 montelukast 10 mg tablet 10 mg PO QAM Trelegy Ellipta 200-62.5-25 mcg blister with device 1 inh INHALATION QAM acetaminophen 325 mg Tablet 650 mg PO Q6H MDD 3GMS APAP/24H PRN (Reason: Pain) warfarin 4 mg tablet 4 mg PO 4XWK Rx Instructions: SUN, TUES, THURS, & SAT EVENINGS warfarin 2 mg tablet 2 mg PO 3XWK Rx Instructions: FRI, FRI & FRI EVENINGS docusate sodium [Colace] 100 mg Capsule 100 mg PO BID PRN (Reason: Constipation) albuterol sulfate 90 mcg/actuation HFA aerosol inhaler 2 puff INHALATION Q4H PRN (Reason: SOB/WHEEZING) potassium chloride 10 mEq tablet,ER particles/crystals 10 meq PO 3XWK Rx Instructions: FRI, FRI, & FRI. Nucala 100 mg/mL Auto-Injector 1 mg SUBCUT Q4WK Rx Instructions: ON THE OF THE MONTH atorvastatin 80 mg tablet 80 mg PO QAM amiodarone 200 mg tablet 200 mg PO QAM bupropion HCl 150 mg tablet extended release 24 hr 150 mg PO QAM levetiracetam [Keppra] 1,000 mg tablet 1,000 mg PO Q12H amoxicillin-pot clavulanate [Augmentin] 500-125 mg tablet 1 tab PO BID Qty: 14 0RF Rx Instructions: STARTED 10/06/23 FOR 7 DAYS polyethylene glycol 3350 [Miralax] 17 gram/dose Powder 17 g PO DAILY PRN (Reason: Constipation) Mounjaro 5 mg/0.5 mL Pen Injector 5 mg SUBCUT WK Rx Instructions: MONDAYS Referrals Referrals: Garret Perry MD [Primary Care Provider] - Discharge Problem: Abdominal pain Qualifiers: Abdominal location: unspecified location Qualified Code(s): R10.9 - Unspecified abdominal pain
[2023-10-07] MEDS: SODIUM CHLORIDE 0.9% 1,000 ML IV ONE (14:50)
[2023-10-07] MEDS: ONDANSETRON INJ 2 MG/ML 2 ML VIAL IV STA ×2 (14:50→17:48)
[2023-10-07 14:51] LABS: Basophils # (auto) 0.05 K/uL (0.00-0.20); Basophils % (auto) 0.8 %; Eosinophils # (auto) 0.04 K/uL (0.00-0.50); Eosinophils % (auto) 0.6 %; Hematocrit (blood only) 39.6 % (37.0-47.0); Hemoglobin 13.2 g/dl (12.0-16.0); Immature Granulocytes # (auto) 0.03 K/uL (0.01-0.20); Immature Granulocytes % (auto) 0.5 %; Lymphocytes # (auto) 1.43 K/uL (1.20-3.40); Lymphocytes % (auto) 22.2 %; Mean Corpuscular Hgb Conc 33.3 g/dL (32.0-36.0); Mean Platelet Volume 9.8 fL (9.4-12.4); Monocytes # (auto) 0.66 K/uL (0.11-0.59); Monocytes % (auto) 10.2 %; Neutrophils # (auto) 4.23 K/uL (1.40-6.50); Neutrophils % (auto) 65.7 %; Platelet Count 291 K/uL (130-400); RDW Coefficient of Variation 14.7 % (11.5-14.5); Red Blood Count 4.26 M/uL (4.20-5.40); White Blood Count 6.44 K/ul (4.8-10.8)
[2023-10-07 15:13] LABS: Alanine Aminotransferase 65 U/L (7-52); Albumin Globulin Ratio 1.6 (0.9-2); Albumin Level 4.5 gm/dl (3.4-5.0); Alkaline Phosphatase 62 U/L (34-104); Anion Gap 10 (3-11); BUN Creatinine Ratio 11.8 (10-20); Bilirubin,Total 0.8 mg/dl (0.2-1.0); Blood Urea Nitrogen 12 mg/dl (6-23); Calcium 10.1 mg/dl (8.6-10.3); Carbon Dioxide 24 mmol/L (21-32); Chloride 103 mmol/L (98-107); Creatinine Clr Calc Pharmacy 55.1 ml/min; Est GFR (Non-African American) 56.1 ml/min; Globulin 2.9 gm/dl (2.5-4.0); Glucose 90 mg/dl (70-99(Fasting)); Lipase 23 U/L (11-82); Sodium 137 mmol/L (136-145); Total Protein 7.4 gm/dl (6.0-8.3)
[2023-10-07 15:15] LABS: INR 1.8 (0.9-1.1); Prothrombin Time 18.5 Seconds (9.0-12.0)
[2023-10-07 15:54] LABS: Potassium 3.7 mmol/L (3.5-5.1)
--- NOTE | 2023-10-07 16:31 | Ultrasound Report ---
US gallbladder CLINICAL HISTORY: Right upper quadrant abdominal pain. COMPARISON STUDY: Right upper quadrant ultrasound and nuclear medicine hepatobiliary scan September [address] of the abdomen and pelvis October 03, 2023. FINDINGS: No hepatic lesions are identified. Mild dilatation of the common bile duct measuring 7 mm i s unchanged since ultrasound of October 01, 2023. Several gallstones within the gallbladder are noted. T he gallbladder is distended, as before. Positive sonographic Clark sign was reported by the technolo gist. There is no gallbladder wall thickening. Mild right collecting system dilatation is unchanged. The pancreas is obscured. IMPRESSION: 1. Cholelithiasis with mild gallbladder distention. Sonographic Clark sign reported by the technolog ist. The findings are equivocal for acute cholecystitis given similar findings on ultrasound of October 01, 2023. If indicated, a repeat nuclear medicine hepatobiliary scan could be obtained. 2. No change in minimal dilatation of the common bile duct. ACT 112: Negative or not required by law. Electronically signed by: Pelon Osuna M.D. 10/07/2023 4:28 PM
[2023-10-07 16:43] LABS: Appearance Urine Clear (Clear); Bacteria Urine Automated None Seen (None Seen); Bilirubin Urine Negative (Negative); Blood Urine Negative (Negative); Cast Urine Automated 0-2 /lpf (0-2); Color Urine Yellow; Glucose Urine UA Negative (Negative); Ketones Urine Negative (Negative); Leukocyte Esterase Urine Trace (Negative); Nitrite Urine Negative (Negative); Protein Urine Negative (Negative); RBC Urine Automated 0-2 /hpf (0-2); Urobilinogen Urine Negative (Negative); WBC Urine Automated 0-5 /hpf (0-5); pH Urine 5.5 (4.5-7.5)
--- NOTE | 2023-10-07 17:10 | History & Physical Report ---
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 Cholelithiasis Abdominal Pain, Diarrhea Proctitis In ER patient afebrile, vitals stable. No leukocytosis. T bili: 0.8, AST: 43, ALT: 65, Alk phos 62 Lipase 23. All improved compared to prior. UA unremarkable Gallbaldder US: 1. Cholelithiasis with mild gallbladder distention. Sonographic Clark sign reported by the technologist. The findings are equivocal for acute cholecystitis given similar findings on ultrasound of October 01, 2023. If indicated, a repeat nuclear medicine hepatobiliary scan could be obtained. 2. No change in minimal dilatation of the common bile duct. General surgery consulted : appreciate recs: KUB abd is negative for obstructive pattern, possible OR tomorrow for cholecystectomy, will make NPO after midnight for now, surg says no HIDA at this time, Allow clear liquid diet tonight In ER she was given zofran and 1 L NSS - will give additional antiemetic and pain medication Gentle IVF, bowel regimen ordered CBC, CMP, INR in am Pt went home on augmentin x 7 more days after being treated with IV zosyn during last admission ( discharged 48 hrs ago), will continue the course per General Surgery. CVA (cerebral vascular accident): History CVA with residual expressive aphasia Patient has tablet to assist in communication Fall precautions Continue atorvastatin. Seizure disorder: Denies recent seizure like activity Continue levetiracetam Atrial fibrillation: HTN HLD Anticoagulated on warfarin: home regimen: 4 mg Sun, Tu, Ashwini, Sat and 2 mg on MWF INR: 1.8, bridge with IV heparin, can turn off prior to surgical procedure Follow daily INR Continue amiodarone, losartan and atorvastatin COPD Asthma No signs exacerbation On Nucala Continue home inhalers, montelukast. Albuterol neb prn DM II A1c: 5.8 on 10/02/23 Hold home metformin, Mounjaro Novolog sliding scale correction per protocol Depression Chronic, stable Continue bupropion DVT ppx: teds, scds Lines: PIV x 1 FEN/GI: Allow clear liquid diet CODE: FULL Dispo: From SNF, likely to remain in the hospital x 1-2 days Updates given to daughter, Enid Don, plan of care and questions were addressed and answered. Please see attending addendum for additional information. A total of 80 minutes were spent with greater than 50% of that time face to face with the patient, personally reviewing all current laboratories, imaging studies, past medication reconciliation, outpatient chart review, and discussion with specialists to collaborate care for the patient with attending. Please see attending documentation for corrections and/or additions. 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 She was just admitted to the facility from 09/30-10/04 for confusion, chest discomfort which was attempted to be communicated through hitting her chest due to expressive aphasia, nausea. Possible acute cholecystitis was ruled out with a HIDA scan and was evaluated by General Surgery during that time. She also had mildly bumped troponin which trended downward. Today she reports her Abdominal pain has continued to be severe with associated nausea, gas, diarrhea. She denies any blood in diarrhea. Patient states that she has tolerated minimal p.o. intake due to nausea and abdominal discomfort. Denies any fevers, chills or sweats. She denies any cardiac complaints, chest tightness or chest pain. She has not yet received any pain medication or antiemetics in the ER and is requesting some. Allergies Allergy/AdvReac Type Severity Reaction Status Date / Time erythromycin base Allergy Severe Rash Verified 10/07/23 16:28 Sulfa (Sulfonamide Allergy Severe Rash Verified 10/07/23 16:28 Antibiotics) aspirin Allergy Intermediate Rash Verified 10/07/23 16:28 latex Allergy Intermediate RASH Verified 10/07/23 16:28 Home Medications Medication Instructions Recorded Confirmed Type fluticasone fur. 200 mcg-umeclid 1 inh inhalation QAM 01/23/23 10/07/23 History 62.5 mcg-vilant 25 mcg inhalat.powder (Trelegy Ellipta) losartan 50 mg tablet 50 mg PO QAM 01/23/23 10/07/23 History metformin 500 mg tablet 500 mg PO BID17 01/23/23 10/07/23 History montelukast 10 mg tablet 10 mg PO QAM 01/23/23 10/07/23 History acetaminophen 325 mg tablet 650 mg PO Q6H PRN Pain 10/01/23 10/07/23 History albuterol sulfate 90 mcg/actuation 2 puff inhalation Q4H PRN 10/01/23 10/07/23 History aerosol inhaler SOB/WHEEZING amiodarone 200 mg tablet 200 mg PO QAM 10/01/23 10/07/23 History atorvastatin 80 mg tablet 80 mg PO QAM 10/01/23 10/07/23 History bupropion HCl 150 mg 24 hr tablet, 150 mg PO QAM 10/01/23 10/07/23 History extended release docusate sodium 100 mg capsule 100 mg PO BID PRN Constipation 10/01/23 10/07/23 History (Colace) levetiracetam 1,000 mg tablet 1,000 mg PO Q12H 10/01/23 10/07/23 History (Keppra) mepolizumab 100 mg/mL subcutaneous 1 mg subcut Q4WK 10/01/23 10/07/23 History auto-injector (Nucala) potassium chloride 10 mEq 10 meq PO 3XWK 10/01/23 10/07/23 History tablet,extended release(part/cryst) warfarin 2 mg tablet 2 mg PO 3XWK 10/01/23 10/07/23 History warfarin 4 mg tablet 4 mg PO 4XWK 10/01/23 10/07/23 History amoxicillin 500 mg-potassium 1 tab PO BID #14 tabs 10/04/23 10/07/23 Rx clavulanate 125 mg tablet (Augmentin) polyethylene glycol 3350 17 17 g PO DAILY PRN Constipation 10/07/23 10/07/23 History gram/dose oral powder (Miralax) tirzepatide 5 mg/0.5 mL 5 mg subcut WK 10/07/23 10/07/23 History subcutaneous pen injector (Mounjaro) Past Med/Surg History Problem List (Updated 10/07/23 @ 20:54 by Michele Coronado DO) Transaminitis (Acute) Abdominal pain (Acute) Acute confusion Seizure disorder Depression Asthma inhaler daily/nebulizer prn COPD (chronic obstructive pulmonary disease) Per records CVA (cerebral vascular accident) Elevated troponin Aphasia (Acute) Cholelithiasis (Acute) Agitation (Acute) Cholelithiasis Morbid obesity HTN (hypertension) Acute ischemic left MCA stroke Tachycardia-bradycardia syndrome Encephalopathy Symptomatic bradycardia Required emergent intubation Seizure-like activity Paroxysmal atrial fibrillation Acute CVA (cerebrovascular accident) (Acute) Dyslipidemia Acute right MCA stroke Hypomagnesemia Sleep apnea CPAP T2DM (type 2 diabetes mellitus) Involuntary movements Stroke-like symptoms (Acute) Environmental allergies (Chronic) Atrial fibrillation with RVR (Acute) Pulmonary nodule (Chronic) Encounter for pre-operative examination HLD (hyperlipidemia) (Chronic) Atrial fibrillation (Chronic) follows with Dr. Romero--on amiodarone, warfarin HTN (hypertension) (Chronic) H/O migraine (Chronic) Hepatitis C (Chronic) IN REMISSION ADD (attention deficit disorder) (Chronic) Mitral regurgitation (Chronic) Medical History (Updated 10/07/23 @ 20:54 by Michele Coronado DO) Urinary retention Left ventricular systolic dysfunction (LVSD) History of dynamic ventricular outflow tract obstruction No significant LV outflow tract obstruction noted on resting ECHO 11/2021 per cardio records Cardiomyopathy Tachycardiac vs idopathic CM (EF 48% in 2018- improved to 55% in 11/2021). Negative nuclear stress test 2017 and 01/2022 Morbid obesity with BMI of 40.0-44.9, adult Prediabetes per pt reason for metformin On anticoagulant therapy eliquis daily Hyperthyroidism RADIOACTIVE IODINE TREATMENT Cardiac murmur Surgical History History of esophagogastroduodenoscopy (EGD) with EUS @ [facility] 04/19/22 History of tooth extraction History of cardiac radiofrequency ablation x2--last 06/24/22 @ [facility] Hx of breast biopsy History of appendectomy History of colonoscopy History of cardioversion x4--last 07/24/22---follows with Dr. Romero also had 03/06/22, 11/2021 and 01/2018 S/P ovarian cystectomy Family History Grandfather Family hx of colon cancer Family/Other Family history of diabetes mellitus Other No family history of adverse response to anesthesia Social History Smoking Status: Former smoker Tobacco Type: Cigarettes Second Hand Exposure: No; Do You Dip or Chew Tobacco: No; Hx Alcohol Use: No Hx Substance Use: No Preferred Language: Russian Communication Ability: Impaired Communication Ability Comment: pt mostly nonverbal Mortician Helper Required: Voice Beliefs That Will Affect Care: None Current Living Situation: Long Term Current Living Situation Comment: [place] Feels Safe at Home: Yes Assistive Devices: Cane and Glasses Review of Systems Review of Systems: Constitutional: No fever, sweats or chills Eyes: No diplopia, no worsening or blurred vision ENT: normal hearing, no trouble swallowing Respiratory: No cough, sputum, dyspnea at rest or on exertion Cardiovascular: No chest pain, tightness or palpitations Abdomen: As per HPI. Musculoskeletal: No joint pain, calf pain, swelling Neurologic: + expressive aphasia s/p CVA. No weakness, numbness/tingling, or balance problems Psychiatric: No anxiety or depression Skin: No rash or itch Physical Exam Physical Exam: General: awake, alert, no apparent distress, + expressive aphasia requiring yes or no questions and use of tablet for help with communication. Head: Normocephalic, atraumatic ENT: PERRL, EOMI, no pharyngeal exudate, mucous membranes moist Chest: + Faint wheezing with rales, on room air, O2 sats ~92 %, no rhonchi Cardiac: irregularly irregular, rate controlled, + murmur, no JVD, normal peripheral pulses, good capillary refill Abdominal: + hyperactive BS x 4 quadrants, soft, nondistended, +tender to palpation mid abdomen and suprapubically with facial grimacing, no rebound or guarding Extremities: + multiple areas of ecchymosis over arms, normal inspection, no peripheral edema or erythema, calfs nontender to palpation Psych: Normal mood and affect Neuro: AAO x 3, + expressive aphasia, no motor gross deficits, speech is garbled, pt is able to shake her head yes or no, she follows commands without difficulty. Results & Data Results & Data Vital Signs (Past 12 Hours) Vital Signs Temp Pulse Resp BP Pulse Ox O2 Del Method 10/07/23 15:33 101 H 98 10/07/23 15:31 60 10/07/23 15:30 150/92 H 10/07/23 15:24 22 10/07/23 15:03 68 21 96 10/07/23 15:00 140/72 10/07/23 14:57 62 19 95 10/07/23 14:37 96 Room Air 10/07/23 14:37 37 C 64 18 163/84 H 96 Room Air Laboratory Results 10/07/23 10/07/23 10/07/23 16:31 15:25 14:36 WBC 6.44 RBC 4.26 Hgb 13.2 Hct 39.6 MCV 93.0 MCH 31.0 MCHC 33.3 RDW Std Deviation 50.0 H RDW Coeff of Yeyo 14.7 H Plt Count 291 MPV 9.8 Immature Gran % (Auto) 0.5 Neut % (Auto) 65.7 Lymph % (Auto) 22.2 Garden % (Auto) 10.2 Eos % (Auto) 0.6 Baso % (Auto) 0.8 Neut # (Auto) 4.23 Lymph # (Auto) 1.43 Garden # (Auto) 0.66 H Eos # (Auto) 0.04 Baso # (Auto) 0.05 Immature Gran # (Auto) 0.03 PT 18.5 H INR 1.8 H Sodium 137 Potassium 3.7 TNP Chloride 103 Carbon Dioxide 24 Anion Gap 10 BUN 12 Creatinine 1.02 Est Cr Clr Drug Dosing 55.1 Est GFR ( Amer) 65.0 Est GFR (Non-Af Amer) 56.1 BUN/Creatinine Ratio 11.8 Glucose 90 Calcium 10.1 Total Bilirubin 0.8 AST 43 H TNP ALT 65 H Alkaline Phosphatase 62 Total Protein 7.4 Albumin 4.5 Globulin 2.9 Albumin/Globulin Ratio 1.6 Lipase 23 Urine Color Yellow Urine Appearance Clear Urine pH 5.5 Ur Specific [place] 1.010 Urine Protein Negative Urine Glucose (UA) Negative Urine Ketones Negative Urine Blood Negative Urine Nitrite Negative Urine Bilirubin Negative Urine Urobilinogen Negative Ur Leukocyte Esterase Trace H Urine WBC (Auto) 0-5 Urine RBC (Auto) 0-2 U Hyaline Cast (Auto) 0-2 U Epithel Cells (Auto) 3-5 H Urine Bacteria (Auto) None Seen Diagnostic Findings Gallbladder Ultrasound 10/07/23 14:17 US gallbladder CLINICAL HISTORY: Right upper quadrant abdominal pain. COMPARISON STUDY: Right upper quadrant ultrasound and nuclear medicine hepatobiliary scan October 01, 2023. CT of the abdomen and pelvis October 03, 2023. FINDINGS: No hepatic lesions are identified. Mild dilatation of the common bile duct measuring 7 mm is unchanged since ultrasound of October 01, 2023. Several gallstones within the gallbladder are noted. The gallbladder is distended, as before. Positive sonographic Clark sign was reported by the technologist. There is no gallbladder wall thickening. Mild right collecting system dilatation is unchanged. The pancreas is obscured. IMPRESSION: 1. Cholelithiasis with mild gallbladder distention. Sonographic Clark sign reported by the technologist. The findings are equivocal for acute cholecystitis given similar findings on ultrasound of October 01, 2023. If indicated, a repeat nuclear medicine hepatobiliary scan could be obtained. 2. No change in minimal dilatation of the common bile duct. ACT 112: Negative or not required by law. Electronically signed by: Pelon Osuna M.D. 10/07/2023 4:28 PM Chest/Abdomen X-ray 10/07/23 16:46 XR abdomen 2V w PA chest CLINICAL HISTORY: ? obs TECHNIQUE: 2 views of the abdomen were obtained. A single view of the chest was obtained. Comparison: None available at the time of this dictation. FINDINGS: No lines and tubes are seen. Calcified aortic knob is seen. The lungs are clear. No evidence of pleural effusion or pneumothorax. The osseous structures are grossly unremarkable. The bowel gas pattern is nonobstructive. Small stool burden is seen. IMPRESSION: Nonobstructive bowel gas pattern. ACT 112: Negative or not required by law. Electronically signed by: Chong Cook M.D. 10/07/2023 5:21 PM Code Status & VTE Plan Code Status Full code - discussed with the pt at bedside. Supervising Physician Co-Signing Physician Notes Pt was seen and examined by myself, Jessica Adler MD on the day of service. Care was coordinated with Marlin Snow PA-C. 68yo returning with persistent abdominal pain. Had HIDA last visit, was negative for acute cholecystitis. Repeat US reviewed, equivocal read once more. Liver enzymes improving. Pt seen with daughter at bedside, daughter is a [facility] Attending physician. Pt with communication difficulty due to expressive aphasia in setting of prior stroke. However, pt communicating/pointing and grabbing, indicating R sided pelvic pain as well now. Area, with no visible erythema or swelling, no significant bulge but noticeable pain on palpation. will obtain US of the area, ?femoral/inguinal hernia? Repeat CT abd/pelvis as well. general surgery on board, case discussed -would like bowel regimen first before considering surgery, on scheduled miralax and colace. Can increase dose of miralax as needed. Noted pt got mag citrate in the ED. INR 1.8, will hold home warfarin and bridge with IV heparin in the interim, surgery agreeable. Otherwise as above. I spent a total [id number] coordinating, documenting, and providing care for this patient excluding time spent in the performance of separately billed services
--- NOTE | 2023-10-07 17:22 | XRay Report ---
XR abdomen 2V w PA chest CLINICAL HISTORY: ? obs TECHNIQUE: 2 views of the abdomen were obtained. A single view of the chest was obtained. Comparison: None available at the time of this dictation. FINDINGS: No lines and tubes are seen. Calcified aortic knob is seen. The lungs are clear. No evidence of pleur al effusion or pneumothorax. The osseous structures are grossly unremarkable. The bowel gas pattern is nonobstructive. Small stool burden is seen. IMPRESSION: Nonobstructive bowel gas pattern. ACT 112: Negative or not required by law. Electronically signed by: Chong Cook M.D. 10/07/2023 5:21 PM
[2023-10-07] MEDS: HYDROmorphone INJ 0.5 MG/0.5 ML SYR IV STA (17:46)
[2023-10-07] MEDS: SODIUM CHLORIDE 0.9% 1,000 ML IV SCH (17:50)
[2023-10-07] MEDS ORDERED: ALBUTEROL HFA 8 GM INHALER INH PRN (18:20)
[2023-10-07] MEDS ORDERED: Heparin IV Adult Wt-Based Standard *NO* INITIAL Bolus Protocol IV SCH (19:00)
[2023-10-07 19:29] LABS: Partial Thromboplastin Ratio 1.3; Partial Thromboplastin Time 36 Seconds (21-31)
[2023-10-07] MEDS: MAGNESIUM CITRATE 296 ML/BTL PO STA (19:36)
[2023-10-07] MEDS: AMOXICILLIN/CLAVULANATE 875 MG TAB PO SCH (19:36)
[2023-10-07] MEDS: POLYETHYLENE (MIRALAX) 17 GM PACK PO SCH (19:36)
[2023-10-07] MEDS: HEPARIN SODIUM/DEXTROSE 25,000 UNITS/500 ML BAG IV SCH (20:02)
[2023-10-07] MEDS ORDERED: AMOXICILLIN/CLAVULANATE 500 MG TAB PO SCH (21:00)
[2023-10-07] MEDS ORDERED: CARBOHYDRATES FOR HYPOGLYCEMIA PO PRN (21:03)
[2023-10-07] MEDS ORDERED: DEXTROSE 50% 50 ML SYRINGE IV PRN (21:03)
[2023-10-07] MEDS ORDERED: GLUCAGON FOR INJ 1 MG VIAL SQ PRN (21:03)
[2023-10-07] MEDS ORDERED: GLUCOSE 40% GEL 15 GM TUBE PO PRN (21:03)
[2023-10-07] MEDS: HYDROmorphone INJ 0.5 MG/0.5 ML SYR IV PRN (21:10)
[2023-10-07] MEDS: DOCUSATE SODIUM 100 MG CAP PO SCH (21:11)
[2023-10-07] MEDS: levETIRAcetam 500 MG TAB PO SCH (21:11)
[2023-10-07] MEDS: ACETAMINOPHEN 325 MG TAB PO SCH (21:16)
--- OUTSIDE RECORDS SUMMARY | 2023-10-07 22:10 | External Medical Summary | Summary of Care ---
Author Name Unknown Organization [facility] Address [address] [place] [address] Phone [phone] Care Team Providers Care Stonemason Supervisor Name Role Phone Luz Moraleslle DONNA Primary Care Provider Encounter Details Date Type Department Care Team (Late st Contact Info) Description 10/03/2023 Population Health External Data Unspecified Department Allergies Active Allergy Reactions Criticality Noted Date Comments Erythromycin Rash 12/14/1999 Ibuprofen Rash 08/05/2011 Latex Rash 03/20/2007 Latex High 07/24/2022 Other reaction(s): RASH Sulfa Antibiotics Rash 12/14/1999 documented as of this encounter (statuses as of 10/03/2023) Medications Medication Sig Dispensed Refills Start Date [...] 4 weeks. 1 mL 4 09/01/2023 Active buPROPion HCl ER (XL) 150 MG [...] at bedtime. 90 Tablet 3 09/25/2023 Active Atorvastatin Calcium 80 MG Oral Tablet (Lipitor)Indicati ons:Dyslipidemia Take 0.5 Tablets by mouth in the morning. 10/02/2023 Active documented as of this encounter (statuses as of 10/03/2023) Active Problems Problem Noted Date Diagnosed Date [...] Last Assessment & Plan: Currently residing at [facility]. Ambulating with cane, no falls. Referral [...] to monitor. Coronary artery disease invo lving [place] coronary artery of [place] heart without angina pectoris 11/01/2022 Migraine without [...] as of this encounter (statuses as of 10/03/2023) Resolved Problems Problem Noted Date Diagnosed Date [...] as of this encounter (statuses as of 10/03/2023) Immunizations Name Administration Dates Next Due COVID-19 mRNA, LNP-s, No Pre serve, 2-Dose Series (Intrinsic-ID) 12/13/2020,05/30/2020,05/02/2020 COVID-19, LNP-s, No Preserve , Keith-sucrose, Ages 12+ (Pfizer) 07/04/2021 Pneumococcal Conjugate Vacci ne, 20-valent ([id number]) 02/13/2022 Pneumococcal Polysaccharide PPV23 (Pneumovax) 02/05/2020 Season [...] Anticoagulation Centralized Clinical Pharmacy Services, Ángel Mclain [address] [place] [address] [place] [address] [place] [address] 01/15/2024 7:40 AM EST Office Visit Family Practice [facility] [address] [place] [id number] Luz Morales CRNP [address] [place] [id number] 03/18/2024 3:00 PM EST Office Visit [facility] Disorders [facility]tr [facility] [address] [place] [phone] Teresita James, [address] [place] [address] Scheduled Procedures Name Priority Associated Diagnoses Date/Ti [...] 02/13/2023 02/13/2022, 05/09/2021 DXA Scan 08/28/2023 08/27/2016 Albumin/Creatinine Ratio 09/18/2023 023, 05/09/2021, 06/28/2020 Influenza [...] this encounter Medical Devices Implanted Type Area Secured Entrance Monitor Device Identifier Shelf Expiration Date Model / Serial / Lot Wire Mailman - [id number] Implanted:Qty: 1 on 06/24/2022 by Natalie Sheffield IV, MD at [facility] [place] Mesitis SCIENTIFIC : PERIPHL IV [id number] 12/13/2023 [id number] documented as of this encounter Advance Directives [...] Agents on File Name Relationship [facility] Enid Patel Adult Child Health Care Repr esentative (appointed verbally by patient or by statute hierarchy) Care Teams Stonemason Supervisor Relationship Specialty Start Date End Date Luz Morales CRNP [address] [place] [address] PCP - General Nurse Practitioner 09/27/20 documented as of this encounter
--- OUTSIDE RECORDS SUMMARY | 2023-10-07 22:10 | External Medical Summary | Summary of Care ---
Author Name Unknown Organization [facility] Address [address] [place] [address] Phone [phone] Care Team Providers Care Operations And Maintenance Specialist Name Role Phone Luz Morales Primary Care Provider Reason for Visit * Reason Onset Date Comments FYI 07/04/2023 Encounter Details Date Type Department Care Team (Late st Contact Info) Description 07/04/2023 Telephone Family Practice [facility] [address] [place] [address] Luz Morales CRNP [address] [facility] [place] [address] FYI Allergies Active Allergy Reactions Criticality Noted Date [...] or Wheezing. 36 g 5 05/27/2023 Active documented as of this encounter (statuses [...] Last Assessment & Plan: Currently residing at [facility]. Ambulating with cane, no falls. Referral placed [...] to monitor. Coronary artery disease invo lving [place] coronary artery of [place] heart without angina pectoris 11/01/2022 Migraine without [...] in the past but not currently on [facility] Continues singulair, zyrtec Mepolizumab monthly Morbid (severe) [...] mRNA, LNP-s, No Pre serve, 2-Dose Series ([employer]) 12/13/2020,05/30/2020,05/02/2020 COVID-19, LNP-s, No Preserve , Keith-sucrose, Ages 12+ (Pfizer) 07/04/2021 Pneumococcal Conjugate Vacci ne, 20-valent ([id number]) 02/13/2022 Pneumococcal Polysaccharide PPV23 (Pneumovax) 02/05/2020 Season [...] encounter Miscellaneous Notes * Telephone Encounter - Scott Staton OSA - 07/04/2023 12:48 PM EDT Caller: [facility] Callback #: [phone] Reason for call: Will fax over therapy paperwork to fill and fax back documented in this encounter Plan of Treatment Upcoming Encounters Date Type Department Care Team (Late st Contact Info) Description 10/08/2023 5:45 PM EDT [facility] Clinical Pharmacy Services, Ángel Mclain [address] [place] [address] [place] [address] [place] [address] 01/15/2024 7:40 AM EST Office Visit Family [facility] [address] [place] [address] Luz Morales, DONNA [address] [place] [address] 03/18/2024 3:00 PM EST Office Visit Sleep Disorders Ctr [facility] [address] [place] [phone] Teresita James, [address] [place] [address] Scheduled Procedures Name Priority Associated Diagnoses Date/Ti [...] this encounter Medical Devices Implanted Type Area Apartment Assistant Manager Device Identifier Shelf Expiration Date Model / Serial / Lot Wire Mailman - [id number] Implanted:Qty: 1 on 06/24/2022 by Natalie Sheffield IV, MD at [facility] SCIENTIFIC : PERIPHL IV [id number] 12/13/2023 [id number] / [id number] documented as of this encounter Additional Health [...] patient or by statute hierarchy) Care Teams Operations And Maintenance Specialist Relationship Specialty Start Date End Date Luz Morales CRNP [address] [place] [address] PCP - General Nurse Practitioner 09/27/20 documented as of this encounter
--- OUTSIDE RECORDS SUMMARY | 2023-10-07 22:10 | External Medical Summary | Summary of Care ---
Author Name Unknown Organization [facility] Address [address] [place] [address] Phone [phone] Care Team Providers Care Digital Strategist Senior Manager Name Role Phone Luz Morales Primary Care Provider Encounter Details Date Type Department Care Team (Late st Contact Info) Description 10/07/2023 Telephone Family Practice [facility] [address] [place] [address] Luz Morales CRNP [address] [place] [address] Allergies Active Allergy Reactions Criticality Noted Date Comments Aspirin 10/06/2023 Erythromycin Rash 12/14/1999 Ibuprofen Rash 08/05/2011 Latex Rash 03/20/2007 Latex High 07/24/2022 Other reaction(s): RASH Sulfa Antibiotics Rash 12/14/1999 documented as of this encounter (statuses as of 10/07/2023) Medications Medication Sig Dispensed Refills Start Date [...] Active Additional Information Patient not taking.Reported on 10/06/2023 Fluocinolone Acetonide Scalp 0.01 % External Oil [...] by mouth in the morning. 10/02/2023 Active Amoxicillin 125 MG Oral Tablet Chewable Take by mouth. Active documented as of this encounter (statuses as of 10/07/2023) Active Problems Problem Noted Date Diagnosed Date [...] Last Assessment & Plan: Currently residing at [facility]. Ambulating with cane, no falls. Referral [...] to monitor. Coronary artery disease invo lving reno-sparks coronary artery of re[place]-sparks heart without angina pectoris 11/01/2022 Migraine without [...] as of this encounter (statuses as of 10/07/2023) Resolved Problems Problem Noted Date Diagnosed Date [...] as of this encounter (statuses as of 10/07/2023) Immunizations Name Administration Dates Next Due COVID-19 mRNA, LNP-s, No Pre serve, 2-Dose Series (Figment) 12/13/2020,05/30/2020,05/02/2020 COVID-19, LNP-s, No Preserve , Keith-sucrose, Ages 12+ (Pfizer) 07/04/2021 Pneumococcal Conjugate Vacci ne, 20-valent ([id number]) 02/13/2022 Pneumococcal Polysaccharide PPV23 (Pneumovax) 02/05/2020 Season [...] Date Recorded PHQ Adult Total Score 0 10/06/2023 Hunger Vital Sign Answer Date Recorded Within the past 12 months, y ou worried that your food would run out before you got the money to buy more. Never true 10/06/19 24 Within the past 12 months, t he food you bought just didn't last and you didn't have money to get more. Never true 10/06/2023 Childcare Answer Date Recorded Do you feel overwhelmed with taking care of a child, family member or friend? No 10/06/2023 Does your family need help f inding childcare? (Household - for ages 0-17 years) Not on file 10/06/2023 Clothing Answer Date Recorded Have you been unable to get clothing when it was really needed? No 10/06/2023 Is your family able to get c lothes or diapers when needed? (Household - for ages 0-17 years) Not on file 10/06/2023 Personal Safety Answer Date Recorded Do you feel unsafe or have concerns for your saf ety? No 10/06/2023 Do you have concerns for you r family's safety? (Household - for ages 0-17 years) Not on file 10/06/2023 Utilities Answer Date Recorded Do you have trouble paying y our heating, water, or electric bill? No 10/06/2023 Is your family able to pay t he heat, water, or electric bill? (Household - for ages 0-17 years) Not on file 10/06/2023 Does your family have access to good internet? (Household - for ages 0-17 years) Not on file 10/06/2023 Employment Status Answer Date Recorded Are you unemployed or without regular income? No 10/06/2023 Does the household have a re gular source of income? (Household - for ages 0-17 years) Not on file 10/06/2023 Social Connections Answer Date Recorded How often do you feel lonely or isolated from th ose around you? Never 10/06/2023 Financial Resource Strain Answer Date R ecorded Do you have any trouble payi ng for your medications, or do you think you might in the future? No 10/06/2023 Does your family have troubl e paying for medicine? (Household - for ages 0-17 years) Not on file 10/06/2023 Transportation Needs Answer Date Record ed READ ONLY Do you have troubl e getting a ride to medical visits or work? Never True 10/06/2023 Does your family have a hard time getting a ride to doctors visits? (Household - for ages 0-17 years) Not on file 10/06/2023 Has lack of transportation k ept you from medical appointments, meetings, work, or from getting things needed for daily living? Check all that apply. No 10/06/2023 Do you (or your family) have trouble finding or paying for a ride (transportation)? (Household - for ages 0-17 years) Not on file 10/06/2023 Housing Stability Answer Date Recorded Do you currently live in a s helter or have no steady place to sleep at night? No 10/06/2023 READ ONLY Do you think you a re at risk of becoming homeless? No 10/06/2023 Does your family worry about paying for your home or becoming homeless? (Household - for ages 0-17 years) Not on file 0 10/06/2023 Are you homeless or worried that you might be in the future? No 10/06/2023 Are you (or your family) fernanda eless or worried that you might be in the future? (Household - for ages 0-17 years) Not on file Food Insecurity Answer Date Recorded Do you need food for this week? No 10/06/2023 Are you able to get enough f ood for your family? (Household - for ages 0-17 years) Not on file 10/06/2023 Does your family need food t his week? (Household - for ages 0-17 years) Not on file 10/06/2023 Do you always have enough fo od for your family? (Household - for ages 0-17 years) Not on file 10/06/2023 Sex and Gender Information Value Date Recorded [...] Notes * Telephone Encounter - Rossana Beltran OSA - 10/07/2023 8:05 AM EDT Already scheduled next week * Telephone Encounter - Luz Morales CRNP - 10/07/2023 7:26 AM EDT Reviewed ED records. Please schedule hospital follow up. Lillian, SOHA, DONNA [facility] documented in this encounter Plan of Treatment Upcoming Encounters Date Type Department Care Team (Late st Contact Info) Description 10/08/2023 5:45 PM EDT Anticoagulation Centralized Clinical Pharmacy Services, Ángel Mclain [address] [place] [address] [place] [address] [facility], [facility] [address] [place] [address] 10/16/2023 3:00 PM EDT Office Visit [facility] [address] [place] [address] Luz Moralse CRNP [address] [place] [address] 01/15/2024 7:40 AM EST Office Visit [facility] [place] [facility] [address] [place] [address] Luz Morales CRNP [address] [place] [address] 03/18/2024 3:00 PM EST Office Visit [facility] [address] [place] [phone] Teresita James DO [address] [place] [address] Scheduled Procedures Name Priority Associated Diagnoses Date/Ti me COLONOSCOPY FLEXIBLE PROXIMA L DIAGNOSTIC Recall History of colonic polyps Health Maintenance Due Date Last Done Comments Alpha-1 Antitrypsin 1972 Fecal Occult Blood Test 07/23/1999 Sigmoidoscopy 07/23/1999 Adult Wellness Visit 2020 Cologuard 05/27/2021 05/27/2018, 05/05/2018 Mammogram 08/14/2022 08/14/2021, [...] 03/30/2019, 03/04, 03/20/2007 Colorectal Cancer Screening 03/30/2024 GFR 09/24/2024 09/25/2023, 08/01, 07/31/2023, Additional history exists O2 ASSESSMENT COMPLETED IN PAST YEAR FOR COPD 09/24/2024 09/25/2023 Depression Monitoring 10/05/2024 10/06/2023 DTaP,Tdap,and Td Vaccines (2 - Td or [...] this encounter Medical Devices Implanted Type Area Trim And Burr Operator Device Identifier Shelf Expiration Date Model / Serial / Lot Wire Mailman - [id number] Implanted:Qty: 1 on 06/24/2022 by Natalie Sheffield IV, MD at [facility] SCIENTIFIC : PERIP[place] [id number] 12/13/2023 [id number] documented as of this encounter Advance Directives [...] Agents on File Name Relationship Healthcare Agent [facility] Communication Enid Patel [facility] Care Repr esentative (appointed verbally by patient or by statute hierarchy) Care Teams Digital Strategist Senior Manager Relationship Specialty Start Date End Date Luz Morales CRNP [address] [place] [address] PCP - General Nurse Practitioner 09/27/20 documented as of this encounter
[2023-10-07] MEDS: INSULIN ASPART PER UNIT CHARGE SC SCH (22:22)
--- OUTSIDE RECORDS SUMMARY | 2023-10-08 02:20 | External Medical Summary | Summary of Care ---
Author Name Unknown Organization [facility] Address [address] [place] [address] Phone [phone] Care Team Providers Care Drilling And Production Superintendent Name Role Phone Luz Morales Primary Care Provider Reason for Visit * Reason Onset Date Comments Test Results 10/01/2023 Labs- LMTCB 09/30 Encounter Details Date Type Department Care Team (Late st Contact Info) Description 10/01/2023 Telephone Cardiology, [facility] [address] [facility] [place] [address] Sukhdev Freedman PA-C [address] [facility] [place] [id number] Test Results (Labs- LMTCB 09/30) Allergies Active Allergy Reactions Criticality Noted Date [...] Lifetime need. 1 Each 1 9 Active CPAP every night at bedtime. Auto [...] weekly over night as directed 118.28 mL 3 Active Mounjaro 5 MG/0.5ML Subcutaneous Solution Pen-injector (Tirzepatide) Inject 5 mg under the skin once a week. 6 mL 3 3 12/02/19 24 Active Docusate Sodium 100 MG Oral Capsule (Colace) Take 1 Capsule by mouth 2 times a day as needed for Constipation. 180 Capsule 3 4 Active Acetaminophen 325 MG Oral Tablet (Tylenol) Take 2 Tablets by mouth every 6 hours as needed for Pain, Moderate. 100 Tablet 4 Active Albuterol Sulfate HFA 108 (90 Base) MCG/ACT Inhalation Aerosol Solution Inhale 2 Puffs by mouth every 4 hours as needed for Shortness of Breath or Wheezing. 36 g 5 4 Active Potassium Chloride Mary ER 10 MEQ Oral Tablet Extended ReleaseIndication s:Edema, unspecified type Take 1 Tablet by mouth once a day on Friday, Friday, and Friday only. 12 Tablet 5 4 Active Nucala 100 MG/ML Subcutaneous Solution Auto-injector (Mepolizumab)Jigna cations:Severe persistent asthma without complication Inject 100 mg (1 pen) under the skin every 4 weeks. 1 mL 4 4 Active buPROPion HCl ER (XL) 150 MG Oral Tablet Extended Release 24 Hour (Wellbutrin XL) TAKE ONE TABLET BY MOUTH DAILY. *MOOD* 28 Tablet 4 4 Active levETIRAcetam 1000 MG Oral Tablet TAKE ONE TABLET BY MOUTH EVERY 12 HOURS FOR SEIZURES 56 Tablet 4 4 Active metFORMIN HCl 500 MG Oral Tablet (Glucophage) TAKE ONE TABLET BY MOUTH 2 TIMES DAILY WITH MEALS FOR DM 180 Tablet 4 Active Amiodarone HCl 200 MG Oral Tablet (Cordarone)Indica tions:Persistent atrial fibrillation (HCC) Take 1 Tablet by mouth in the morning. 90 Tablet 3 4 Active Losartan Potassium 50 MG Oral Tablet (Cozaar)Indicatio ns:Persistent atrial fibrillation (HCC),HTN, goal below 140/90 Take 1 Tablet by mouth in the morning. 90 Tablet 3 4 Active Warfarin Sodium 4 MG Oral Tablet (Coumadin) Take 0.5 to 1 tablet daily as directed by anticoagulation clinic 90 Tablet 1 4 Active Additional Information Patient taking differently: Take 0.5 to 1 tablet daily as directed by anticoagulation clinic (on Friday, Friday, and Friday), Reported on 09/25/2023 Warfarin Sodium 2 MG Oral Tablet (Coumadin) Take 1 Tablet by mouth. 1 li on Friday, Friday and Friday 4 Active Trelegy Ellipta 200-62.5-25 MCG/ACT Aerosol Powder Breath Activated (Fluticasone-Umec lidinium-Vilanter ol) Inhale 1 Puff by mouth in the morning. 90 Blister Dosing Unit 3 4 Active Montelukast Sodium 10 MG Oral Tablet (Singulair) Take 1 Tablet by mouth at bedtime. 90 Tablet 3 4 Active Atorvastatin Calcium 80 MG Oral Tablet (Lipitor)Indicati ons:Dyslipidemia Take 0.5 Tablets by mouth in the morning. 4 Active Atorvastatin Calcium 80 MG Oral Tablet (Lipitor) TAKE ONE TAB BY MOUTH DAILY FOR CHOLESTEROL 28 Tablet 4 4 10/02/19 24 Discontinu ed(Refill) documented as of this encounter [...] Last Assessment & Plan: Currently residing at [facility]. Ambulating with cane, no falls. [...] to monitor. Coronary artery disease invo lving telida coronary artery of telida heart without angina pectoris 11/01/2022 Migraine without [...] mRNA, LNP-s, No Pre serve, 2-Dose Series (Absolute Commerce) 12/13/2020,05/30/2020,05/02/2020 COVID-19, LNP-s, No Preserve , Keith-sucrose, Ages 12+ (Pfizer) 07/04/2021 Pneumococcal Conjugate Vacci ne, 20-valent ([id number]) 02/13/2022 Pneumococcal Polysaccharide PPV23 (Pneumovax) 02/05/2020 Season [...] encounter Miscellaneous Notes * Telephone Encounter - Adore Tanner CMA - 10/02/2023 4:13 PM EDT Spoke with patient's daughter, Enid, by phone. Gave results and recommendations from Sukhdev regarding recent lab results. Enid verbalized understanding and agreeable to plan of care. Med list updated. Lab orders placed. * Telephone Encounter - Sachi Vaz NRSissy - 10/01/2023 10:45 AM EDT LM to return call to nursing for message. MARCIA Alford * Telephone Encounter - Sachi Vaz NRCMA - 10/01/2023 10:44 AM EDT ----- Message from Sukhdev Freedman sent at 09/25/2023 4:53 PM EDT ----- Mildly abnormal LFTs. Decrease atorvastatin from 80 mg/day to 40 mg/day Limit acetaminophen to less than 1500 mg/day Check a hepatic function panel in about 6 weeks documented in this encounter Plan of Treatment Upcoming Encounters Date Type Department Care Team (Late st Contact Info) Description 10/08/2023 5:45 PM EDT Anticoagulation Centralized Clinical Pharmacy Services, Ángel Mclain [address] [place] [address] [place] [address] [place] [address] 10/16/2023 3:00 PM EDT Office Visit [address] [place] [address] Luz Morales CRNP [address] [place] [address] 01/15/2024 7:40 AM EST Office Visit [facility] [address] [facility] [place] [address] Luz Morales CRNP [address] [place] [address] 03/18/2024 3:00 PM EST Office Visit [facility] [address] [place] [phone] Teresita James, [address] [place] [address] Scheduled Orders Name Type Priority Associated Diagnoses Orde r Schedule HEPATIC FUNCTION PANEL Lab Routine Dyslipidemia Expected: 11/13/2023 (Approximate), Expires: 10/01/2024 Scheduled Procedures Name Priority Associated Diagnoses Date/Ti [...] this encounter Medical Devices Implanted Type Area Pastry Wrapper Device Identifier Shelf Expiration Date Model / Serial / Lot Wire Mailman - [id number] Implanted:Qty: 1 on 06/24/2022 by Natalie Sheffield IV, MD at [facility] [employer] : PERIPHL IV [id number] 12/13/2023 [id number] documented as of this encounter Visit Diagnoses Diagnosis Dyslipidemia- Primary Other and unspecified hyperlipidemia documented in this encounter Advance Directives * [...] patient or by statute hierarchy) Care Teams Drilling And Production Superintendent Relationship Specialty Start Date End Date Luz Morales CRNP [address] [place] [address] PCP - General Nurse Practitioner 09/27/20 documented as of this encounter
[2023-10-08 02:51] LABS: ANTI-Xa, UFH(UnfractionatedHep 0.77 IU/ml (0.3-0.7)
[2023-10-08 02:55] LABS: Adenovirus F 40/41 PCR Not Detected (NotDetected); Astrovirus PCR Not Detected (NotDetected); Campylobacter PCR Not Detected (NotDetected); Cryptosporidium PCR Not Detected (NotDetected); Cyclospora cayetanensis PCR Not Detected (NotDetected); Entamoeba histolytica PCR Not Detected (NotDetected); Enteroaggregative E.coli(EAEC) Not Detected (NotDetected); Enteropathogenic E.coli (EPEC) Not Detected (NotDetected); Enterotoxigenic E.coli (ETEC) Not Detected (NotDetected); Giardia lamblia PCR Not Detected (NotDetected); Norovirus GI/GII PCR Not Detected (NotDetected); Plesiomonas shigelloides PCR Not Detected (NotDetected); Rotavirus A PCR Not Detected (NotDetected); Salmonella PCR Not Detected (NotDetected); Sapovirus PCR Not Detected (NotDetected); Shiga-like Toxin E.coli (STEC) Not Detected (NotDetected); Shigella/Enteroinvasive E.coli Not Detected (NotDetected); Vibrio cholerae PCR Not Detected (NotDetected); Vibrio species PCR Not Detected (NotDetected); Yersinia enterocolitica PCR Not Detected (NotDetected)
[2023-10-08] MEDS ORDERED: Nursing to Pharmacy Communication SCH (03:45)
[2023-10-08] MEDS: INSULIN ASPART PER UNIT CHARGE SC SCH (05:21)
[2023-10-08] MEDS: OPTIRAY 320 100ml IV ONE (08:15)
--- NOTE | 2023-10-08 08:20 | Hospitalist Progress Note ---
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 Cholelithiasis with sludge Chronic Abdominal Pain Proctitis In ER patient afebrile, vitals stable. No leukocytosis. T bili: 0.8, AST: 43, ALT: 65, Alk phos 62 Lipase 23. All improved compared to prior. Pt indicating right sided pelvic and groin pain as well Care complicated by pt's inability to describe her symptoms UA unremarkable Lipase normal Gallbladder US this admission: 1. Cholelithiasis with mild gallbladder distention. Sonographic Clark sign reported by the technologist. The findings are equivocal for acute cholecystitis given similar findings on ultrasound of October 01, 2023. If indicated, a repeat nuclear medicine hepatobiliary scan could be obtained. 2. No change in minimal dilatation of the common bile duct. KUB noting small stool burden, nonobstructive bowel gas pattern. Hernia US with no visible hernia Repeat CT abd/pelvis noting fluid filled colon but no acute findings. CT abd/pelvis from 10/02 noted concern for proctitis HIDA scan repeated, once again negative for acute cholecystitis but noted " Delayed visualization of small bowel activity. This is a nonspecific finding which could be due to gallbladder dysfunction, sphincter dysfunction or less l ikely partial common bile duct obstruction. This could be correlated with obstructive liver function tests." General Surgery consulted, appreciate recs. Recommending the following at this time: -if HIDA positive: "would recommend consideration for Axios stent placement potentially vs transfer to a tertiary center with neurosurgery availability for intervention due to her high stroke risk." -further recs pending after repeat HIDA Continue PRN IV pain meds, antiemetics Continue IVF with dextrose (see below with episodes of hypoglycemia) Continue Augmentin course for previous proctitis Pt had bowel regimen on board, per nursing had episode of watery diarrhea in the AM Advance diet as tolerated GI consulted for further recs as well, appreciated Trend hepatic panel with AM labs, AM ESR, CRP Possible effect from home mounjaro use? Possible mesenteric ischemia? consider CTA abdomen/pelvis Continue to monitor Hypoglycemia Pt with episodes of hypoglycemia on 10/07 Not currently eating as much due to abd pain d5w added to fluids Holding insulin sliding scale HTN Pt with episodes of very high blood pressures Lowers after IV pain meds Likely in setting of acute pain Continue home losartan CVA (cerebral vascular accident): History CVA with residual expressive aphasia Patient has tablet to assist in communication, sometimes gets frustrated Fall precautions On atorvastatin 80mg at home. Initially held on admission, will continue at 40mg dose and closely monitor hepatic enzymes Seizure disorder: Denies recent seizure like activity Continue levetiracetam Atrial fibrillation HLD Anticoagulated on warfarin: home regimen: 4 mg Sun, Tu, Ashwini, Sat and 2 mg on MWF INR subtherapeutic, bridging with IV heparin Continue amiodarone, atorvastatin at half dose as above COPD Asthma No signs of exacerbation On Nucala Continue home inhalers, montelukast. Albuterol neb prn DM II A1c: 5.8 on 10/02/23 Hold home metformin, Mounjaro Novolog sliding scale correction per protocol, currenlty on hold in setting of hypoglycemia Resume once pt taking adequate po Depression Chronic, stable Continue bupropion DVT ppx: on IV heparin FEN/GI: Allow clear liquid diet Dispo: PT/OT once medically stable Admission and Anticipated Discharge Date Admission Date: October 07, 2023 Subjective Pt seen multiple times during the day. In the AM, tearful, unable to communicate. Notes that she is still having the abdominal pain. Later notified by nursing pt's BP systolic >180, diastolic >100, improved to 147/75 after dilaudid. Later at bedside, pt with notes that she worked with her daughter on: shakes her head yes to this provider that it explains her symptoms. It reads" pain is the same as last week, pain 9/10, comes and goes, with and without food, + Nausea and chills" Daughter, Dr Enid Patel updated throughout the day. Case discussed with General Surgery in the AM Review of Systems Review of Systems: All systems reviewed & are unremarkable except as noted in Subjective Physical Exam Physical Exam: General: Alert Skin: No noted rashes or bruises Psych: tearful mood and affect Neuro: expressive aphasia HEENT: NC/AT CV: RRR Resp: Breath sounds clear bilaterally, no increased effort of breathing Abdomen: Soft, tender diffusely but especially in right quadrants Extremities: No edema in lower extremities bilaterally. Results & Data Results & Data Vital Signs (Past 12 Hours) Vital Signs Temp Pulse Pulse Resp BP Pulse Ox O2 Del Method 10/08/23 07:37 36.6 C 58 L 18 156/73 H 93 Room Air 10/08/23 03:08 36.4 C L 66 18 153/76 H 94 Room Air 10/08/23 00:17 36.5 C 60 18 137/75 96 Room Air 10/07/23 23:00 67 10/07/23 21:03 72 10/07/23 21:00 36.9 C 91 H 18 178/81 H 95 Room Air Diagnostic Findings Gallbladder Ultrasound 10/07/23 14:17 US gallbladder CLINICAL HISTORY: Right upper quadrant abdominal pain. COMPARISON STUDY: Right upper quadrant ultrasound and nuclear medicine hepatobiliary scan October 01, 2023. CT of the abdomen and pelvis October 03, 2023. FINDINGS: No hepatic lesions are identified. Mild dilatation of the common bile duct measuring 7 mm is unchanged since ultrasound of October 01, 2023. Several gallstones within the gallbladder are noted. The gallbladder is distended, as before. Positive sonographic Clark sign was reported by the technologist. There is no gallbladder wall thickening. Mild right collecting system dilatation is unchanged. The pancreas is obscured. IMPRESSION: 1. Cholelithiasis with mild gallbladder distention. Sonographic Clark sign reported by the technologist. The findings are equivocal for acute cholecystitis given similar findings on ultrasound of October 01, 2023. If indicated, a repeat nuclear medicine hepatobiliary scan could be obtained. 2. No change in minimal dilatation of the common bile duct. ACT 112: Negative or not required by law. Electronically signed by: Pelon Osuna M.D. 10/07/2023 4:28 PM Chest/Abdomen X-ray 10/07/23 16:46 XR abdomen 2V w PA chest CLINICAL HISTORY: ? obs TECHNIQUE: 2 views of the abdomen were obtained. A single view of the chest was obtained. Comparison: None available at the time of this dictation. FINDINGS: No lines and tubes are seen. Calcified aortic knob is seen. The lungs are clear. No evidence of pleural effusion or pneumothorax. The osseous structures are grossly unremarkable. The bowel gas pattern is nonobstructive. Small stool burden is seen. IMPRESSION: Nonobstructive bowel gas pattern. ACT 112: Negative or not required by law. Electronically signed by: Chong Cook M.D. 10/07/2023 5:21 PM Abdomen Ultrasound 10/08/23 00:00 US abdomen ltd hernia CLINICAL HISTORY: Right inguinal/femoral hernia? inguinal/pelvic pain COMPARISON STUDY: CT of the abdomen and pelvis performed earlier today. TECHNIQUE: Sonography of the right groin was performed with and without stress maneuvers. FINDINGS: No right groin hernia was identified. No mass, fluid collection or other sonographic abnormality was identified. IMPRESSION: No right groin hernia identified. ACT 112: Negative or not required by law. Electronically signed by: Pelon Osuna M.D. 10/08/2023 10:54 AM Abdomen/Pelvis CT 10/08/23 08:00 CT OF THE ABDOMEN AND PELVIS WITH CONTRAST CLINICAL HISTORY: now pelvic/ right groin pain with abdominal pain COMPARISON STUDY: CT of the abdomen and pelvis October 03, 2023. Right upper quadrant ultrasound and abdominal series October 07, 2023. TECHNIQUE: Following IV administration of 93 mL of Optiray, axial images of the abdomen and pelvis were obtained from the lung bases to the proximal femurs. Images were reviewed in the axial, sagittal, and coronal planes. IV contrast was administered without complication. Automated exposure control was utilized for the study. A dose lowering technique was utilized adhering to the principles of ALARA. CT DOSE: 1147.47 mGy.cm FINDINGS: The heart is mildly enlarged. No pneumatosis, free air or portal venous gas is present. Gallbladder distention is similar to CT of October 03, 2023. There is no pericholecystic infiltration. There is layering hyperdense material within the gallbladder with small gallstones. No biliary or pancreatic ductal dilatation is present. Spleen, adrenal glands and pancreas are un remarkable. There is no hydronephrosis. There are no urinary calculi. A few subcentimeter renal lesions are too small to characterize but favor cysts. Major vasculature is patent. There is moderate aortic atherosclerotic plaque. Caliber and wall thickness of small and large bowel are normal. The colon is mildly fluid-filled. There is sigmoid diverticulosis without evidence for acute diverticulitis. There is no lymphadenopathy. No right groin abnormality is identified. Specifically, there is no groin hernia. There is no lymphadenopathy. IMPRESSION: 1. No bowel obstruction. No bowel wall thickening. Mildly fluid-filled colon. 2. No right groin abnormality identified. 3. Cholelithiasis. No change in gallbladder distention since CT of October 03, 2023. No pericholecystic infiltration. ACT 112: Negative or not required by law. Electronically signed by: Pelon Osuna M.D. 10/08/2023 9:17 AM Hepatobiliary Scan Nuclear Medicine 10/08/23 09:03 NUCLEAR MEDICINE HEPATOBILIARY SCAN CLINICAL HISTORY: Cholelithiasis. Gallbladder distention. COMPARISON: Hepatobiliary scan October 01, 2023. Right upper quadrant ultrasound October 07, 2023. CT of the abdomen and pelvis performed earlier today. TECHNIQUE: 5 mCi of technetium 99m Choletec IV was injected at 12:00 PM on October 08, 2023. Immediately following injection, imaging of the abdomen was carried out for 2 hours in the anterior projection. FINDINGS: Hepatic uptake of radiotracer is prompt and homogeneous. Activity is identified within the common bile duct at 15 minutes. Gallbladder activity is noted at 25 minutes. Imaging was carried out for 2 hours. No small bowel activity is identified. IMPRESSION: 1. No evidence for acute cholecystitis. 2. Delayed visualization of small bowel activity. This is a nonspecific finding which could be due to gallbladder dysfunction, sphincter dysfunction or less likely partial common bile duct obstruction. This could be correlated with obstructive liver function tests. ACT 112: Negative or not required by law. Electronically signed by: Pelon Osuna M.D. 10/08/2023 2:14 PM
--- NOTE | 2023-10-08 08:33 | Surgery Consultation ---
Date of Consultation October 08, 2023 Assessment & Plan (1) Abdominal pain: This is 68yF with a PMH of expressive aphasia 2/2 CVA, COPD, depression, afib on coumadin, HLD, HTN, who presents to the [facility] ED on 10/07/23 with complaints of R sided abdominal pain. Patent resides at [facility]. Majority of HPI obtained from chart review. Able to obtain some information from patient via IPAD, but she was having some difficulty using it well enough to fully communicate with me. She is able to relay she has been having R sided abdominal pain and nausea since about 09/30. Of significance she was recently admitted to our hospital from 09/30-10/03 for workup of chest/abdominal pain. We were initially involved as workup with imaging revealed + cholelithiasis in a distended gallbladder, but HIDA scan was eventually obtained and was negative for acute deangelo. She was ultimately discharged back to her facility, however she continues to have complaints of discomfort in the abdomen, with nausea, and diarrhea. In the ER she underwent a repeat US that revealed + cholelithiasis with mild gallbladder distention and + murphys sign concerning for acute deangelo. Patient has multiple BMs documented overnight. Today's blood work is pending, however on admission yesterdays labs show a WBC 6.4, INR 1.8, K 3.7, Tb 0.8, AST 43, ALT65. Vital signs are stable. On exam abdomen is soft, non distended, with discomfort along R sided abdomen from RUQ to RLQ regions. I do not appreciate an obvious R groin hernia on exam, however due to location of pain an US and repeat CT a/p have been ordered for further evaluation. This will also give us a little more information to go off of regarding her gallbladder as well. It remains unclear if gallbladder is the true etiology of her pain, however we will review the new imaging this AM and re- evaluate patient for further recommendations. For now keep NPO until imaging resulted and I review patient with the surgeon. Will follow. Supervising Physician Co-Signing Physician Notes Stool studies (-), trace leukocyte esterase, distended bladder on imaging. Abdominal discomfort is very non-specific and seems more towards the RLQ. Borborygmi present during palpation. Has TTP at dense scar tissue lower midline as well as RLQ adjacent to the umbilicus and questionably RUQ to deep palpation. At this point, this will have to be a diagnosis of exclusion as she is unable to be very definitive with her exam. Stool studies were done and are negative We will obtain a repeat HIDA. If this is positive, I would be hesitant for general anesthesia with her stroke risk through anticoagulation and would r ecommend consideration for Axios stent placement potentially vs transfer to a tertiary center with neurosurgery availability for intervention due to her high stroke risk. Will discuss this further with the medical team and her daughter, Jorge when we have those results. F/U a bladder scan to see if there is urine retention. UA with trace leukocyte esterase. Ms. Hernandez is able to seem to be definitive with regards to any urinary issues which she denies. We will also initiate warm compresses to her abdominal wall at this time in case there is some musculoskeletal component. History of Present Illness Attending Physician: Jessica Adler MD History of Present Illness This is 68yF with a PMH of expressive aphasia 2/2 CVA while on Eliquis and one during a procedure, COPD, depression, afib on coumadin, HLD, HTN, who presents to the [facility] ED on 10/07/23 with complaints of abdominal pain. Patent resides at [facility]. Majority of HPI obtained from chart review. Able to obtain some information from patient via IPAD, but she was having some difficulty using it well enough to fully communicate with me. She is able to relay she has been having R sided abdominal pain and nausea since about 09/30. Of significance she was recently admitted to our hospital from 09/30-10/03 for workup of chest/abdominal pain. We were initially involved as workup with imaging revealed + cholelithiasis in a distended gallbladder, but HIDA scan was eventually obtained and was negative for acute deangelo. She was ultimately discharged back to her facility, however she continues to have complaints of discomfort in the abdomen, with nausea, and diarrhea. In the ER she underwent a repeat US that revealed + cholelithiasis with mild gallbladder distention and + murphys sign concerning for acute deangelo. Patient has multiple BMs documented overnight. PSH in chart appears to be an appendectomy and ovarian cystectomy. Allergies Allergy/AdvReac Type Severity Reaction Status Date / Time erythromycin base Allergy Severe Rash Verified 10/07/23 16:28 Sulfa (Sulfonamide Allergy Severe Rash Verified 10/07/23 16:28 Antibiotics) aspirin Allergy Intermediate Rash Verified 10/07/23 16:28 latex Allergy Intermediate RASH Verified 10/07/23 16:28 Home Medications Medication Instructions Recorded Confirmed Type fluticasone fur. 200 mcg-umeclid 1 inh inhalation QAM 01/23/23 10/07/23 History 62.5 mcg-vilant 25 mcg inhalat.powder (Trelegy Ellipta) losartan 50 mg tablet 50 mg PO QAM 01/23/23 10/07/23 History metformin 500 mg tablet 500 mg PO BID17 01/23/23 10/07/23 History montelukast 10 mg tablet 10 mg PO QAM 01/23/23 10/07/23 History acetaminophen 325 mg tablet 650 mg PO Q6H PRN Pain 10/01/23 10/07/23 History albuterol sulfate 90 mcg/actuation 2 puff inhalation Q4H PRN 10/01/23 10/07/23 History aerosol inhaler SOB/WHEEZING amiodarone 200 mg tablet 200 mg PO QAM 10/01/23 10/07/23 History atorvastatin 80 mg tablet 80 mg PO QAM 10/01/23 10/07/23 History bupropion HCl 150 mg 24 hr tablet, 150 mg PO QAM 10/01/23 10/07/23 History extended release docusate sodium 100 mg capsule 100 mg PO BID PRN Constipation 10/01/23 10/07/23 History (Colace) levetiracetam 1,000 mg tablet 1,000 mg PO Q12H 10/01/23 10/07/23 History (Keppra) mepolizumab 100 mg/mL subcutaneous 1 mg subcut Q4WK 10/01/23 10/07/23 History auto-injector (Nucala) potassium chloride 10 mEq 10 meq PO 3XWK 10/01/23 10/07/23 History tablet,extended release(part/cryst) warfarin 2 mg tablet 2 mg PO 3XWK 10/01/23 10/07/23 History warfarin 4 mg tablet 4 mg PO 4XWK 10/01/23 10/07/23 History amoxicillin 500 mg-potassium 1 tab PO BID #14 tabs 10/04/23 10/07/23 Rx clavulanate 125 mg tablet (Augmentin) polyethylene glycol 3350 17 17 g PO DAILY PRN Constipation 10/07/23 10/07/23 History gram/dose oral powder (Miralax) tirzepatide 5 mg/0.5 mL 5 mg subcut WK 10/07/23 10/07/23 History subcutaneous pen injector (Mounjaro) Patient History Medical History Urinary retention Left ventricular systolic dysfunction (LVSD) History of dynamic ventricular outflow tract obstruction No significant LV outflow tract obstruction noted on resting ECHO 11/2021 per cardio records Cardiomyopathy Tachycardiac vs idopathic CM (EF 48% in 2018- improved to 55% in 11/2021). Negative nuclear stress test 2017 and 01/2022 Morbid obesity with BMI of 40.0-44.9, adult Prediabetes per pt reason for metformin On anticoagulant therapy eliquis daily Hyperthyroidism RADIOACTIVE IODINE TREATMENT Cardiac murmur Surgical History History of esophagogastroduodenoscopy (EGD) with EUS @ [facility] 04/19/22 History of tooth extraction History of cardiac radiofrequency ablation x2--last 06/24/22 @ [facility] [place] Hx of breast biopsy History of appendectomy History of colonoscopy History of cardioversion x4--last 07/24/22---follows with Dr. 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 mumbling to herself while using attempting to use Ipad Respiratory: normal respiratory effort Gastrointestinal (Abdomen): Inspection/Auscultation: + abdominal surgical scar; abdomen not distended Percussion/Palpation: abdomen soft Pain along R sided abdomen from RUQ to RLQ Results & Data Vital Signs (Past 12 Hours) Vital Signs Temp Pulse Pulse Resp BP Pulse Ox O2 Del Method 10/08/23 07:37 97.9 F 58 L 18 156/73 H 93 Room Air 10/08/23 03:08 97.5 F L 66 18 153/76 H 94 Room Air 10/08/23 00:17 97.7 F 60 18 137/75 96 Room Air 10/07/23 23:00 67 10/07/23 21:03 72 10/07/23 21:00 98.4 F 91 H 18 178/81 H 95 Room Air PG Care Time/CCT Total # of Minutes Spent Total Time Spent with Patient: Total time spent is greater than 50% in coordination of care (as documented) at patient's floor/unit and/or counseling patient: Coding Level of Care Code 77829 INT INP/OBS CARE 1/40MIN Diagnoses Abdominal pain R10.9 Abdominal location: unspecified location (1) Abdominal pain Abdominal location: unspecified location Qualified Code(s): R10.9 - Unspecified abdominal pain
[2023-10-08] MEDS ORDERED: ATORVASTATIN 40 MG TAB PO SCH (09:00)
[2023-10-08] MEDS: AMIODARONE 200 MG TAB PO SCH (09:12)
[2023-10-08] MEDS: buPROPion XL 150 MG TABCR PO SCH (09:13)
[2023-10-08] MEDS: LOSARTAN POTASSIUM 50 MG TAB PO SCH (09:14)
[2023-10-08] MEDS: FLUTICASONE FUROATE 200MCG 14 PUFFS/INHALER INH SCH (09:14)
[2023-10-08] MEDS: MONTELUKAST SODIUM 10 MG TABLET PO SCH (09:15)
[2023-10-08] MEDS: UMECLIDINIUM/VILANTEROL 62.5/25MCG 7 PUFFS/INHALER INH SCH (09:15)
--- NOTE | 2023-10-08 09:18 | CT Scan Report ---
CT OF THE ABDOMEN AND PELVIS WITH CONTRAST CLINICAL HISTORY: now pelvic/ right groin pain with abdominal pain COMPARISON STUDY: CT of the abdomen and pelvis October 03, 2023. Right upper quadrant ultrasound and a bdominal series October 07, 2023. TECHNIQUE: Following IV administration of 93 mL of Optiray, axial images of the abdomen and pelvis we re obtained from the lung bases to the proximal femurs. Images were reviewed in the axial, sagittal, and coronal planes. IV contrast was administered without complication. Automated exposure control wa s utilized for the study. A dose lowering technique was utilized adhering to the principles of ALARA . CT DOSE: 1147.47 mGy.cm FINDINGS: The heart is mildly enlarged. No pneumatosis, free air or portal venous gas is present. Gal lbladder distention is similar to CT of October 03, 2023. There is no pericholecystic infiltration. The re is layering hyperdense material within the gallbladder with small gallstones. No biliary or pancre atic ductal dilatation is present. Spleen, adrenal glands and pancreas are unremarkable. There is no hydronephrosis. There are no urinary calculi. A few subcentimeter renal lesions are too small to gregory acterize but favor cysts. Major vasculature is patent. There is moderate aortic atherosclerotic plaqu e. Caliber and wall thickness of small and large bowel are normal. The colon is mildly fluid-filled. There is sigmoid diverticulosis without evidence for acute diverticulitis. There is no lymphadenopath y. No right groin abnormality is identified. Specifically, there is no groin hernia. There is no lymp hadenopathy. IMPRESSION: 1. No bowel obstruction. No bowel wall thickening. Mildly fluid-filled colon. 2. No right groin abnormality identified. 3. Cholelithiasis. No change in gallbladder distention since CT of October 03, 2023. No pericholecystic infiltration. ACT 112: Negative or not required by law. Electronically signed by: Pelon Osuna M.D. 10/08/2023 9:17 AM
[2023-10-08 09:21] LABS: Hematocrit (blood only) 41.3 % (37.0-47.0); Hemoglobin 13.3 g/dl (12.0-16.0); Mean Corpuscular Hemoglobin 30.4 pg (25.0-34.0); Mean Corpuscular Hgb Conc 32.2 g/dL (32.0-36.0); Mean Corpuscular Volume 94.5 fL (80.0-100.0); Mean Platelet Volume 9.7 fL (9.4-12.4); Platelet Count 278 K/uL (130-400); RDW Coefficient of Variation 14.6 % (11.5-14.5); Red Blood Count 4.37 M/uL (4.20-5.40); White Blood Count 6.02 K/ul (4.8-10.8)
[2023-10-08 09:34] LABS: Albumin Globulin Ratio 1.5 (0.9-2); Albumin Level 4.3 gm/dl (3.4-5.0); BUN Creatinine Ratio 8.2 (10-20); Bilirubin,Total 0.7 mg/dl (0.2-1.0); Calcium 9.4 mg/dl (8.6-10.3); Creatinine Clr Calc Pharmacy 60.7 ml/min; Est GFR (Non-African American) 69.9 ml/min; Globulin 2.9 gm/dl (2.5-4.0); Phosphorus 2.9 mg/dl (2.5-4.9); Potassium 3.8 mmol/L (3.5-5.1); Total Protein 7.2 gm/dl (6.0-8.3)
[2023-10-08 09:49] LABS: INR 1.9 (0.9-1.1); Prothrombin Time 19.3 Seconds (9.0-12.0)
[2023-10-08 09:56] LABS: ANTI-Xa, UFH(UnfractionatedHep 1.19 IU/ml (0.3-0.7)
--- NOTE | 2023-10-08 10:55 | Ultrasound Report ---
US abdomen ltd hernia CLINICAL HISTORY: Right inguinal/femoral hernia? inguinal/pelvic pain COMPARISON STUDY: CT of the abdomen and pelvis performed earlier today. TECHNIQUE: Sonography of the right groin was performed with and without stress maneuvers. FINDINGS: No right groin hernia was identified. No mass, fluid collection or other sonographic abnorm ality was identified. IMPRESSION: No right groin hernia identified. ACT 112: Negative or not required by law. Electronically signed by: Pelon Osuna M.D. 10/08/2023 10:54 AM
[2023-10-08 11:48] LABS: ANTI-Xa, UFH(UnfractionatedHep 0.98 IU/ml (0.3-0.7)
--- NOTE | 2023-10-08 14:15 | Nuclear Medicine Report ---
NUCLEAR MEDICINE HEPATOBILIARY SCAN CLINICAL HISTORY: Cholelithiasis. Gallbladder distention. COMPARISON: Hepatobiliary scan October 01, 2023. Right upper quadrant ultrasound October 07, 2023. CT of the abdomen and pelvis performed earlier today. TECHNIQUE: 5 mCi of technetium 99m Choletec IV was injected at 12:00 PM on October 08, 2023. Immediat mikala following injection, imaging of the abdomen was carried out for 2 hours in the anterior [facility] n. FINDINGS: Hepatic uptake of radiotracer is prompt and homogeneous. Activity is identified within the common bile duct at 15 minutes. Gallbladder activity is noted at 25 minutes. Imaging was carried out for 2 hours. No small bowel activity is identified. IMPRESSION: 1. No evidence for acute cholecystitis. 2. Delayed visualization of small bowel activity. This is a nonspecific finding which could be due to gallbladder dysfunction, sphincter dysfunction or less likely partial common bile duct obstruction. This could be correlated with obstructive liver function tests. ACT 112: Negative or not required by law. Electronically signed by: Pelon Osuna M.D. 10/08/2023 2:14 PM
[2023-10-08] MEDS: GLUCOSE 10 TAB/TUBE PO PRN (14:36)
[2023-10-08] MEDS: D5W AND NSS 1,000 ML IV SCH (15:00)
[2023-10-08] MEDS ORDERED: Nursing to Pharmacy Communication ONE (15:11)
[2023-10-08 15:29] LABS: ANTI-Xa, UFH(UnfractionatedHep 0.19 IU/ml (0.3-0.7)
[2023-10-08] MEDS ORDERED: INSULIN ASPART PER UNIT CHARGE SC SCH (16:30)
[2023-10-08] MEDS ORDERED: ONDANSETRON INJ 2 MG/ML 2 ML VIAL IV PRN (16:42)
[2023-10-08] MEDS: HEPARIN IV BOLUS 3,000 UNITS in SYRINGE 0 ML IV STA (16:47)
[2023-10-08 22:32] LABS: ANTI-Xa, UFH(UnfractionatedHep 1.21 IU/ml (0.3-0.7)
[2023-10-09 01:03] LABS: ANTI-Xa, UFH(UnfractionatedHep 0.77 IU/ml (0.3-0.7)
[2023-10-09 02:13] LABS: ANTI-Xa, UFH(UnfractionatedHep 0.49 IU/ml (0.3-0.7)
--- NOTE | 2023-10-09 09:23 | Gastrointestinal Consultation ---
Date of Consultation October 09, 2023 Assessment & Plan (1) Abdominal pain: Plan 68 year old female with history of CVA with residual expressive aphasia, HTN, HLD, CAD, atrial fibrillation anticoagulated on warfarin, pulmonary hypertension, T2DM, asthma, COPD, LILI, seizure disorder, depression, anxiety re- admitted with abdominal pain and nausea, imaging showing gallstones with mild gallbladder distention. She was admitted last week, HIDA at that time without A repeat HIDA scan shows delayed visualization of small bowel activity, mild AST/ALT elevation but normal Tbili, lipase 23, no leukocytosis AM labs pending NPO MRCP to rule out biliary obstruction given the delay seen on HIDA Trend LFTs Antiemetics PRN Analgesia PRN Thank you for allowing us to participate in the care of this patient. Please call with any acute changes, questions or concerns. Please see addendum below with additional recommendation from my supervising physician. I spent a total of 60 minutes on the date of service in review of patient's record, and previously obtained information in person and appropriate medical visit, discussion and education of plan, with patient and/or caregiver, placing orders for tests/referral/procedures as medically necessary and documentation of pertinent clinical information in patient's medical records for their visit today. Supervising Physician Co-Signing Physician Notes I personally saw and examined the patient. I have reviewed the chart and agree with the documentation provided by the SHIELD RUNNER including discussion about the assessment, treatment and plan. Briefly, 68 year old female with history of CVA with residual expressive aphasia, HTN, HLD, CAD, atrial fibrillation anticoagulated on warfarin, pulmonary hypertension, T2DM, asthma, COPD, LILI, seizure disorder, depression, anxiety re-admitted with abdominal pain and nausea, imaging showing gallstones with mild gallbladder distention. She was admitted last week, HIDA at that time without A repeat HIDA scan shows delayed visualization of small bowel activity, mild AST/ALT elevation but normal Tbili, lipase 23. Of note her pain and nausea is gone now. ? of choledocholithesis. Suggest MRCP here. Given near normal lfts and pain gone, may have passed stone. appreciate surgical input. History of Present Illness Reason for Consultation: abd pain, nausea Requesting Physician: Nayely Attending Physician: Jessica Adler MD History of Present Illness 68 year old female with history of CVA with residual expressive aphasia, HTN, HLD, CAD, atrial fibrillation anticoagulated on warfarin, pulmonary hypertension, T2DM, asthma, COPD, LILI, seizure disorder, depression, anxiety re- admitted with abdominal pain and nausea - GI asked to evaluate. Pt was seen and evaluated, chart reviewed. She endorses continued abd pain, generalized, worse in upper abd. She has had nausea but denies vomiting. There is now report of loose stools as well. No report of black or bloody stools. HIDA 2023: . No evidence for acute cholecystitis. Delayed visualization of small bowel activity. This is a nonspecific finding which could be due to gallbladder dysfunction, sphincter dysfunction or less likely partial common bile duct obstruction. This could be correlated with obstructive liver function tests. CTAP 2023: No bowel obstruction. No bowel wall thickening. Mildly fluid-filled colon. No right groin abnormality identified. Cholelithiasis. No change in gallbladder distention since CT of October 03, 2023. No pericholecystic infiltration. ABD US 2023: Cholelithiasis with mild gallbladder distention. Sonographic Clark sign reported by the technologist. The findings are equivocal for acute cholecystitis given similar findings on ultrasound of October 01, 2023. If indicated, a repeat nuclear medicine hepatobiliary scan could be obtained. No change in minimal dilatation of the common bile duct. CTAP 2023: . Mild circumferential thickening within the rectum with mild perirectal fat stranding. This is consistent with a nonspecific proctitis.Colonic diverticulosis. No evidence for acute diverticulitis. Mildly distended gallbladder containing stones and sludge. However, no gallbladder wall thickening. Moderate fecal retention. Subtle tree-in-bud nodules within the lung bases suggestive of a mild infectious bronchiolitis. HIDA 2023: Normal hepatobiliary study. No scintigraphic evidence for acute cholecystitis or common bile duct obstruction. Allergies Allergy/AdvReac Type Severity Reaction Status Date / Time erythromycin base Allergy Severe Rash Verified 10/07/23 16:28 Sulfa (Sulfonamide Allergy Severe Rash Verified 10/07/23 16:28 Antibiotics) aspirin Allergy Intermediate Rash Verified 10/07/23 16:28 latex Allergy Intermediate RASH Verified 10/07/23 16:28 Home Medications Medication Instructions Recorded Confirmed Type fluticasone fur. 200 mcg-umeclid 1 inh inhalation QAM 01/23/23 10/07/23 History 62.5 mcg-vilant 25 mcg inhalat.powder (Trelegy Ellipta) losartan 50 mg tablet 50 mg PO QAM 01/23/23 10/07/23 History metformin 500 mg tablet 500 mg PO BID17 01/23/23 10/07/23 History montelukast 10 mg tablet 10 mg PO QAM 01/23/23 10/07/23 History acetaminophen 325 mg tablet 650 mg PO Q6H PRN Pain 10/01/23 10/07/23 History albuterol sulfate 90 mcg/actuation 2 puff inhalation Q4H PRN 10/01/23 10/07/23 History aerosol inhaler SOB/WHEEZING amiodarone 200 mg tablet 200 mg PO QAM 10/01/23 10/07/23 History atorvastatin 80 mg tablet 80 mg PO QAM 10/01/23 10/07/23 History bupropion HCl 150 mg 24 hr tablet, 150 mg PO QAM 10/01/23 10/07/23 History extended release docusate sodium 100 mg capsule 100 mg PO BID PRN Constipation 10/01/23 10/07/23 History (Colace) levetiracetam 1,000 mg tablet 1,000 mg PO Q12H 10/01/23 10/07/23 History (Keppra) mepolizumab 100 mg/mL subcutaneous 1 mg subcut Q4WK 10/01/23 10/07/23 History auto-injector (Nucala) potassium chloride 10 mEq 10 meq PO 3XWK 10/01/23 10/07/23 History tablet,extended release(part/cryst) warfarin 2 mg tablet 2 mg PO 3XWK 10/01/23 10/07/23 History warfarin 4 mg tablet 4 mg PO 4XWK 10/01/23 10/07/23 History amoxicillin 500 mg-potassium 1 tab PO BID #14 tabs 10/04/23 10/07/23 Rx clavulanate 125 mg tablet (Augmentin) polyethylene glycol 3350 17 17 g PO DAILY PRN Constipation 10/07/23 10/07/23 History gram/dose oral powder (Miralax) tirzepatide 5 mg/0.5 mL 5 mg subcut WK 10/07/23 10/07/23 History subcutaneous pen injector (Mounjaro) Patient History Medical History Urinary retention Left ventricular systolic dysfunction (LVSD) History of dynamic ventricular outflow tract obstruction No significant LV outflow tract obstruction noted on resting ECHO 11/2021 per cardio records Cardiomyopathy Tachycardiac vs idopathic CM (EF 48% in 2018- improved to 55% in 11/2021). Negative nuclear stress test 2017 and 01/2022 Morbid obesity with BMI of 40.0-44.9, adult Prediabetes per pt reason for metformin On anticoagulant therapy eliquis daily Hyperthyroidism RADIOACTIVE IODINE TREATMENT Cardiac murmur Surgical History History of esophagogastroduodenoscopy (EGD) with EUS @ [facility] 04/19/22 History of tooth extraction History of cardiac radiofrequency [place] x2[place] 06[place]24[place] [facility] [place] of [place] biopsy History of appendectomy History of colonoscopy History of cardioversion x4--last 07/24/22---follows with Dr. Romero also had 03/06/22, 11/2021 and 01/2018 S/P ovarian cystectomy Family History Grandfather Family hx of colon cancer Family/Other Family history of diabetes mellitus Other No family history of adverse response to anesthesia Social History Smoking Status: Former smoker Tobacco Type: Cigarettes Second Hand Exposure: No; Do You Dip or Chew Tobacco: No; Hx Alcohol Use: No Hx Substance Use: No Preferred Language: Vietnamese Communication Ability: Impaired Communication Ability Comment: pt mostly nonverbal Revenue Cycle Specialist Required: Voice Beliefs That Will Affect Care: None Current Living Situation: Long-Term Current Living Situation Comment: [place] Feels Safe at Home: Yes Assistive Devices: Cane Review of Systems Review of Systems: All other findings negative except as noted in HPI. Physical Exam Constitutional: WD/WN, vitals as above Respiratory: normal respiratory effort; no respiratory distress Cardiovascular: Rate/Rhythm: regular rate and regular rhythm Gastrointestinal (Abdomen): Inspection/Auscultation: normal bowel sounds Percussion/Palpation: + abdomen tender and abdomen soft; no guarding and abdomen not rigid Skin: no rashes, warm and dry Results & Data Vital Signs (Past 12 Hours) Vital Signs Temp Pulse Pulse Pulse Resp BP Pulse Ox 10/09/23 07:56 36.7 C 42 L 16 121/71 95 10/09/23 05:52 42 L 10/09/23 03:43 36.0 C L 45 L 16 110/68 93 10/09/23 00:52 44 L 10/08/23 22:49 36.5 C 42 L 16 124/63 95 O2 Del Method 10/09/23 07:56 Room Air 10/09/23 05:52 10/09/23 03:43 Room Air 10/09/23 00:52 10/08/23 22:49 Room Air Laboratory Results 10/09/23 10/09/23 10/09/23 Range/Units 08:55 08:09 01:25 ESR Pending PT Pending (9.0-12.0) Seconds INR Pending (0.9-1.1) Heparin Anti-Xa, Unfract Pending 0.49 (0.3-0.7) IU/ml Sodium Pending (136-145) mmol/L Potassium Pending (3.5-5.1) mmol/L Chloride Pending (98-107) mmol/L Carbon Dioxide Pending (21-32) mmol/L Anion Gap Pending (3-11) BUN Pending (6-23) mg/dl Creatinine Pending (0.6-1.2) mg/dl Est Cr Clr Drug Dosing Pending ml/min Est GFR ( Amer) Pending ml/min Est GFR (Non-Af Amer) Pending ml/min BUN/Creatinine Ratio Pending (10-20) Glucose Pending (70-99(Fasting)) mg/dl POC Glucose 115 H (70-99) mg/dl Calcium Pending (8.6-10.3) mg/dl Phosphorus Pending (2.5-4.9) mg/dl Magnesium Pending (1.7-2.4) mg/dl Total Bilirubin Pending (0.2-1.0) mg/dl Direct Bilirubin Pending AST Pending (13-39) U/L ALT Pending (7-52) U/L Alkaline Phosphatase Pending (34-104) U/L Troponin I High Sens Pending (0-14) pg/ml C-Reactive Protein Pending Total Protein Pending (6.0-8.3) gm/dl Albumin Pending (3.4-5.0) gm/dl Globulin Pending (2.5-4.0) gm/dl Albumin/Globulin Ratio Pending (0.9-2) Lyme Disease Screen Pending 10/09/23 10/08/23 10/08/23 Range/Units 00:11 21:30 20:30 ESR PT (9.0-12.0) Seconds INR (0.9-1.1) Heparin Anti-Xa, Unfract 0.77 H* 1.21 H* (0.3-0.7) IU/ml Sodium (136-145) mmol/L Potassium (3.5-5.1) mmol/L Chloride (98-107) mmol/L Carbon Dioxide (21-32) mmol/L Anion Gap (3-11) BUN (6-23) mg/dl Creatinine (0.6-1.2) mg/dl Est Cr Clr Drug Dosing ml/min Est GFR ( Amer) ml/min Est GFR (Non-Af Amer) ml/min BUN/Creatinine Ratio (10-20) Glucose (70-99(Fasting)) mg/dl POC Glucose 136 H (70-99) mg/dl Calcium (8.6-10.3) mg/dl Phosphorus (2.5-4.9) mg/dl Magnesium (1.7-2.4) mg/dl Total Bilirubin (0.2-1.0) mg/dl Direct Bilirubin AST (13-39) U/L ALT (7-52) U/L Alkaline Phosphatase (34-104) U/L Troponin I High Sens 12.0 (0-14) pg/ml C-Reactive Protein Total Protein (6.0-8.3) gm/dl Albumin (3.4-5.0) gm/dl Globulin (2.5-4.0) gm/dl Albumin/Globulin Ratio (0.9-2) Lyme Disease Screen 10/08/23 10/08/23 10/08/23 Range/Units 16:32 15:22 14:36 ESR PT (9.0-12.0) Seconds INR (0.9-1.1) Heparin Anti-Xa, Unfract 0.19 L (0.3-0.7) IU/ml Sodium (136-145) mmol/L Potassium (3.5-5.1) mmol/L Chloride (98-107) mmol/L Carbon Dioxide (21-32) mmol/L Anion Gap (3-11) BUN (6-23) mg/dl Creatinine (0.6-1.2) mg/dl Est Cr Clr Drug Dosing ml/min Est GFR ( Amer) ml/min Est GFR (Non-Af Amer) ml/min BUN/Creatinine Ratio (10-20) Glucose (70-99(Fasting)) mg/dl POC Glucose 130 H 94 (70-99) mg/dl Calcium (8.6-10.3) mg/dl Phosphorus (2.5-4.9) mg/dl Magnesium (1.7-2.4) mg/dl Total Bilirubin (0.2-1.0) mg/dl Direct Bilirubin AST (13-39) U/L ALT (7-52) U/L Alkaline Phosphatase (34-104) U/L Troponin I High Sens (0-14) pg/ml C-Reactive Protein Total Protein (6.0-8.3) gm/dl Albumin (3.4-5.0) gm/dl Globulin (2.5-4.0) gm/dl Albumin/Globulin Ratio (0.9-2) Lyme Disease Screen 10/08/23 10/08/23 10/08/23 Range/Units 14:22 14:19 10:46 ESR PT (9.0-12.0) Seconds INR (0.9-1.1) Heparin Anti-Xa, Unfract 0.98 H* (0.3-0.7) IU/ml Sodium (136-145) mmol/L Potassium (3.5-5.1) mmol/L Chloride (98-107) mmol/L Carbon Dioxide (21-32) mmol/L Anion Gap (3-11) BUN (6-23) mg/dl Creatinine (0.6-1.2) mg/dl Est Cr Clr Drug Dosing ml/min Est GFR ( Amer) ml/min Est GFR (Non-Af Amer) ml/min BUN/Creatinine Ratio (10-20) Glucose (70-99(Fasting)) mg/dl POC Glucose 66 L* 63 L* (70-99) mg/dl Calcium (8.6-10.3) mg/dl Phosphorus (2.5-4.9) mg/dl Magnesium (1.7-2.4) mg/dl Total Bilirubin (0.2-1.0) mg/dl Direct Bilirubin AST (13-39) U/L ALT (7-52) U/L Alkaline Phosphatase (34-104) U/L Troponin I High Sens (0-14) pg/ml C-Reactive Protein Total Protein (6.0-8.3) gm/dl Albumin (3.4-5.0) gm/dl Globulin (2.5-4.0) gm/dl Albumin/Globulin Ratio (0.9-2) Lyme Disease Screen 10/08/23 Range/Units 08:57 ESR PT 19.3 H (9.0-12.0) Seconds INR 1.9 H (0.9-1.1) Heparin Anti-Xa, Unfract 1.19 H* (0.3-0.7) IU/ml Sodium 139 (136-145) mmol/L Potassium 3.8 (3.5-5.1) mmol/L Chloride 104 (98-107) mmol/L Carbon Dioxide 27 (21-32) mmol/L Anion Gap 8 (3-11) BUN 7 (6-23) mg/dl Creatinine 0.85 (0.6-1.2) mg/dl Est Cr Clr Drug Dosing 60.7 ml/min Est GFR ( Amer) 81.0 ml/min Est GFR (Non-Af Amer) 69.9 ml/min BUN/Creatinine Ratio 8.2 L (10-20) Glucose 86 (70-99(Fasting)) mg/dl POC Glucose (70-99) mg/dl Calcium 9.4 (8.6-10.3) mg/dl Phosphorus 2.9 (2.5-4.9) mg/dl Magnesium 2.0 (1.7-2.4) mg/dl Total Bilirubin 0.7 (0.2-1.0) mg/dl Direct Bilirubin AST 45 H (13-39) U/L ALT 57 H (7-52) U/L Alkaline Phosphatase 59 (34-104) U/L Troponin I High Sens (0-14) pg/ml C-Reactive Protein Total Protein 7.2 (6.0-8.3) gm/dl Albumin 4.3 (3.4-5.0) gm/dl Globulin 2.9 (2.5-4.0) gm/dl Albumin/Globulin Ratio 1.5 (0.9-2) Lyme Disease Screen PG Care Time/CCT Total # of Minutes Spent Total Time Spent with Patient: Total time spent is greater than 50% in coordination of care (as documented) at patient's floor/unit and/or counseling patient: Coding Level of Care Code 94971 INT INP/OBS CARE 2/55MIN Diagnoses Abdominal pain R10.9 Abdominal location: unspecified location (1) Abdominal pain Abdominal location: unspecified location Qualified Code(s): R10.9 - Unspecified abdominal pain
[2023-10-09] MEDS: ATORVASTATIN 40 MG TAB PO SCH (09:31)
[2023-10-09 10:06] LABS: ANTI-Xa, UFH(UnfractionatedHep 0.62 IU/ml (0.3-0.7); INR 1.8 (0.9-1.1); Prothrombin Time 18.7 Seconds (9.0-12.0)
[2023-10-09] MEDS: traMADol HCL 50 MG TABLET PO PRN (10:29)
[2023-10-09 10:32] LABS: Albumin Level 3.6 gm/dl (3.4-5.0); Anion Gap 8 (3-11); Bilirubin Direct 0.1 mg/dl (0-0.2); Bilirubin,Total 0.5 mg/dl (0.2-1.0); Calcium 8.8 mg/dl (8.6-10.3); Carbon Dioxide 25 mmol/L (21-32); Chloride 108 mmol/L (98-107); Magnesium 1.9 mg/dl (1.7-2.4); Sodium 141 mmol/L (136-145)
[2023-10-09 10:38] LABS: Alanine Aminotransferase 46 U/L (7-52); Albumin Globulin Ratio 1.4 (0.9-2); Alkaline Phosphatase 50 U/L (34-104); Aspartate Aminotransferase 36 U/L (13-39); BUN Creatinine Ratio 5.3 (10-20); Blood Urea Nitrogen 4 mg/dl (6-23); Creatinine Clr Calc Pharmacy 67.9 ml/min; Est GFR (African American) 92.8 ml/min; Globulin 2.5 gm/dl (2.5-4.0); Glucose 128 mg/dl (70-99(Fasting)); Phosphorus 3.3 mg/dl (2.5-4.9); Total Protein 6.1 gm/dl (6.0-8.3)
[2023-10-09 10:43] LABS: Troponin I High Sensitivity 11.6 pg/ml (0-14)
[2023-10-09 11:00] LABS: C Reactive Protein < 0.50 mg/dl (0-0.5)
--- NOTE | 2023-10-09 11:42 | Electrocardiogram Report ---
Test Reason : Blood Pressure : */* mmHG Vent. Rate : 47 BPM Atrial Rate : 31 BPM P-R Int : * ms QRS Dur : 118 ms QT Int : 322 ms P-R-T Axes : * 116 -74 degrees QTcB Int : 284 ms Junctional rhythm Right axis deviation Non-specific intra-ventricular conduction delay Nonspecific ST and T wave abnormality Abnormal ECG When compared with ECG of 03-Oct-2023 12:12, Junctional rhythm has replaced Sinus rhythm Non-specific change in ST segment in Lateral leads Nonspecific T wave abnormality now evident in Lateral leads QT has shortened Confirmed by Alberto Stearns ([id number]) on 10/09/2023 11:42:26 AM Referred By: REFERRED SELF Confirmed By: Alberto Stearns
--- NOTE | 2023-10-09 11:55 | Surgery Progress Note ---
<Statement entered by Lalo Vanegas DO - 10/09/23 19:40> I have seen the patient this evening. She is still having symptoms. MRCP has been performed and has not yet been read. GI on board. Will follow up in the am. Date of Service October 09, 2023 Assessment & Plan (1) Abdominal pain: Plan: Pt reports continued abd pain appears to be TTP on right side VSS Patient had a HIDA yesterday that showed No evidence for acute cholecystitis. Delayed visualization of small bowel activity. This is a nonspecific finding which could be due to gallbladder dysfunction, sphincter dysfunction or less likely partial common bile duct obstruction. This could be correlated with obstructive liver function. GI has been consulted and ordered an MRCP Will continue to follow Admission and Anticipated Discharge Date Admission Date: October 07, 2023 Subjective Patient reports ongoing abdominal pain points to lower right quadrant when Review of Systems Gastrointestinal: + abdominal pain; no vomiting Physical Exam Constitutional: cooperative; no acute distress Respiratory: normal respiratory effort; no respiratory distress Cardiovascular: Rate/Rhythm: + bradycardic (46) Gastrointestinal (Abdomen): Inspection/Auscultation: abdomen not distended Percussion/Palpation: + abdomen tender, + guarding and abdomen soft Results & Data Vital Signs (Past 12 Hours) Vital Signs Temp Pulse Pulse Pulse Resp BP BP 10/09/23 11:44 98.1 F 46 L 16 134/78 10/09/23 07:56 98.1 F 42 L 16 121/71 10/09/23 05:52 42 L 10/09/23 03:43 96.8 F L 45 L 16 110/68 10/09/23 00:52 44 L Pulse Ox O2 Del Method 10/09/23 11:44 97 Room Air 10/09/23 07:56 95 Room Air 10/09/23 05:52 10/09/23 03:43 93 Room Air 10/09/23 00:52 Diagnostic Findings [place], [place] [phone] Nuclear Medicine Report Patient: PALLAVI WIGGINS Admit Date: 10/07/23 MR#: [id number] Address1: [address] [place] [address] Acct ID:[id number] [facility] [address] [facility] Zip: [place] [address] Age: 68 Location: 2N Sex: F Room/Bed: [facility] Att Phy: Jessica Adler MD Diagnosis: ABDOMINAL PAIN Alem Phy: Garret Perry MD Service Date: 10/08/23 Fam Phy: Interpreting Phy: Pelon Osuna MDAdmit Phy: Jessica Adler MD Ordering Phy: Torie Gottlieb PA-C cc: ~ NUCLEAR MEDICINE HEPATOBILIARY SCAN CLINICAL HISTORY: Cholelithiasis. Gallbladder distention. COMPARISON: Hepatobiliary scan October 01, 2023. Right upper quadrant ultrasound October 07, 2023. CT of the abdomen and pelvis performed earlier today. TECHNIQUE: 5 mCi of technetium 99m Choletec IV was injected at 12:00 PM on October 08, 2023. Immediately following injection, imaging of the abdomen was carried out for 2 hours in the anterior projection. FINDINGS: Hepatic uptake of radiotracer is prompt and homogeneous. Activity is identified within the common bile duct at 15 minutes. Gallbladder activity is noted at 25 minutes. Imaging was carried out for 2 hours. No small bowel activity is identified. IMPRESSION: 1. No evidence for acute cholecystitis. 2. Delayed visualization of small bowel activity. This is a nonspecific finding which could be due to gallbladder dysfunction, sphincter dysfunction or less likely partial common bile duct obstruction. This could be correlated with obstructive liver function tests. ACT 112: Negative or not required by law. Electronically signed by: Pelon Osuna M.D. 10/08/2023 2:14 PM Dictated: 10/08/23 1412 Transcribed: 10/08/23 141 Results CBC w Diff Results: RBC 4.37 M/uL (4.20-5.40) 10/08/23 WBC 6.02 K/ul (4.8-10.8) 10/08/23 Hgb 13.3 g/dl (12.0-16.0) 10/08/23 Hct 41.3 % (37.0-47.0) 10/08/23 MCV 94.5 fL (80.0-100.0) 10/08/23 MCH 30.4 pg (25.0-34.0) 10/08/23 MCHC 32.2 g/dL (32.0-36.0) 10/08/23 RDW Standard Deviation 51.0 fL (36.4-46.3) H 10/08/23 RDW Coefficient of Variation 14.6 % (11.5-14.5) H 10/08/23 Plt Count 278 K/uL (130-400) 10/08/23 MPV 9.7 fL (9.4-12.4) 10/08/23 Neutrophils (%) (Auto) 65.7 % 10/07/23 Lymphocytes (%) (Auto) 22.2 % 10/07/23 Monocytes # (Auto) 0.66 K/uL (0.11-0.59) H 10/07/23 Eosinophils # (Auto) 0.04 K/uL (0.00-0.50) 10/07/23 Immature Granulocyte % (Auto) 0.5 % 10/07/23 Neutrophils # (Auto) 4.23 K/uL (1.40-6.50) 10/07/23 Lymphocytes # (Auto) 1.43 K/uL (1.20-3.40) 10/07/23 Monocytes # (Auto) 0.66 K/uL (0.11-0.59) H 10/07/23 Eosinophils # (Auto) 0.04 K/uL (0.00-0.50) 10/07/23 Basophils # (Auto) 0.05 K/uL (0.00-0.20) 10/07/23 Immature Granulocyte # (Auto) 0.03 K/uL (0.01-0.20) 4 PG Care Time/CCT Total # of Minutes Spent Total Time Spent with Patient: Total time spent is greater than 50% in coordination of care (as documented) at patient's floor/unit and/or counseling patient: Coding Level of Care Code 97557 SUB INP/OBS CARE 1/25MIN Diagnoses Abdominal pain R10.9 Abdominal location: unspecified location (1) Abdominal pain Abdominal location: unspecified location Qualified Code(s): R10.9 - Unspecified abdominal pain
[2023-10-09] MEDS: HYDROmorphone INJ 0.5 MG/0.5 ML SYR IV PRN (12:06)
--- NOTE | 2023-10-09 12:30 | Cardiology Consultation ---
Date of Consultation October 09, 2023 Assessment & Plan (1) Junctional rhythm: (2) Paroxysmal atrial fibrillation: Patient with multiple recent studies for evaluation of abdominal discomfort that have been unrevealing thus far. Unrevealing thus far. Per review of GI consult from today, MRCP tentatively planned. Patient is currently on a heparin bridge, INR 1.8 which I think is reasonable while we determine need for invasive procedures. Question if the bradycardia with regards to junctional rhythm is due to high vagal tone with persistent abdominal discomfort at the time of my assessment. Continue amiodarone 200 mg p.o. daily for now. History of Present Illness Attending Physician: Jessica Adler MD History of Present Illness Kimberly Hernandez is a 68 year-old female seen in cardiology consultation per the request of Dr Saenz for the evaluation of bradycardia. Patient well-known to the undersigned, complex history as outlined below with stroke episode that took place shortly after direct-current cardioversion in August, and recurrent debilitating stroke January, prompting transition from Eliquis to warfarin.Patient recently admitted for confusion and has had abdominal discomfort. She was readmitted on 10/09/2023 due to abdominal discomfort, nauseousness. EKG on 10/03/2023 had revealed sinus rhythm at 66 bpm. Due to concerns of bradycardia noted on telemetry, repeat tracing was performed last night, 10/08/2023 at 1955 revealing junctional rhythm at 47 bpm with nonspecific diffuse repolarization abnormalities. Telemetry reviewed, for most part a junctional rhythm in the 40s was observed. There was a brief run of atrial tachycardia observed telemetry of 4:02 AM with a 2.3-second conversion pause back to junctional rhythm in the 40s. Occasionally sinus bradycardia in the 50s also noted on telemetry. Blood pressure remained stable, most recent measurement 134/78. Past Medical History: 1.Hypertension 2.Hyperdynamic LV systolic function with outflow tract obstruction 3.Paroxysmal, , diagnosed 07/2017, [id number] score of 4 a.Status post multiple cardioversions 2017, November, b.Recurrent atrial fibrillation, status post pulmonary vein isolation radiofrequency catheter ablation 03/[address] Herson jorgensen.Recurrent AFIB, s/p repeat PVI and sotalol load 06/24/[address] Yohannes floyd.Recurrent AFIB s/p DCCV 08/14/2022, complicated by acute right MCA CVA 08/15/2022 4.History of tachycardic versus idiopathic cardiomyopathy, LVEF 45%, 2017, improved LVEF to 55% 11/2020 a.Negative nuclear stress 08/26/2017, January, -Acute right middle cerebral artery territory stroke, August, in the setting of proceeding direct-current cardioversion on Eliquis -January, readmitted with a recurrent, debilitating stroke, at that time felt to have Eliquis failure and transitioned to Coumadin. Required mechanical ventilation for airway support at that time, stroke episode complicated by Allergies Allergy/AdvReac Type Severity Reaction Status Date / Time erythromycin base Allergy Severe Rash Verified 10/07/23 16:28 Sulfa (Sulfonamide Allergy Severe Rash Verified 10/07/23 16:28 Antibiotics) aspirin Allergy Intermediate Rash Verified 10/07/23 16:28 latex Allergy Intermediate RASH Verified 10/07/23 16:28 Home Medications Medication Instructions Recorded Confirmed Type fluticasone fur. 200 mcg-umeclid 1 inh inhalation QAM 01/23/23 10/07/23 History 62.5 mcg-vilant 25 mcg inhalat.powder (Trelegy Ellipta) losartan 50 mg tablet 50 mg PO QAM 01/23/23 10/07/23 History metformin 500 mg tablet 500 mg PO BID17 01/23/23 10/07/23 History montelukast 10 mg tablet 10 mg PO QAM 01/23/23 10/07/23 History acetaminophen 325 mg tablet 650 mg PO Q6H PRN Pain 10/01/23 10/07/23 History albuterol sulfate 90 mcg/actuation 2 puff inhalation Q4H PRN 10/01/23 10/07/23 History aerosol inhaler SOB/WHEEZING amiodarone 200 mg tablet 200 mg PO QAM 10/01/23 10/07/23 History atorvastatin 80 mg tablet 80 mg PO QAM 10/01/23 10/07/23 History bupropion HCl 150 mg 24 hr tablet, 150 mg PO QAM 10/01/23 10/07/23 History extended release docusate sodium 100 mg capsule 100 mg PO BID PRN Constipation 10/01/23 10/07/23 History (Colace) levetiracetam 1,000 mg tablet 1,000 mg PO Q12H 10/01/23 10/07/23 History (Keppra) mepolizumab 100 mg/mL subcutaneous 1 mg subcut Q4WK 10/01/23 10/07/23 History auto-injector (Nucala) potassium chloride 10 mEq 10 meq PO 3XWK 10/01/23 10/07/23 History tablet,extended release(part/cryst) warfarin 2 mg tablet 2 mg PO 3XWK 10/01/23 10/07/23 History warfarin 4 mg tablet 4 mg PO 4XWK 10/01/23 10/07/23 History amoxicillin 500 mg-potassium 1 tab PO BID #14 tabs 10/04/23 10/07/23 Rx clavulanate 125 mg tablet (Augmentin) polyethylene glycol 3350 17 17 g PO DAILY PRN Constipation 10/07/23 10/07/23 History gram/dose oral powder (Miralax) tirzepatide 5 mg/0.5 mL 5 mg subcut WK 10/07/23 10/07/23 History subcutaneous pen injector (Mounjaro) Patient History Medical History Urinary retention Left ventricular systolic dysfunction (LVSD) History of dynamic ventricular outflow tract obstruction No significant LV outflow tract obstruction noted on resting ECHO 11/2021 per cardio records Cardiomyopathy Tachycardiac vs idopathic CM (EF 48% in 2018- improved to 55% in 11/2021). Negative nuclear stress test 2017 and 01/2022 Morbid obesity with BMI of 40.0-44.9, adult Prediabetes per pt reason for metformin On anticoagulant therapy eliquis daily Hyperthyroidism RADIOACTIVE IODINE TREATMENT Cardiac murmur Surgical History History of esophagogastroduodenoscopy (EGD) with EUS @ [facility] 04/19/22 History of tooth extraction History of cardiac radiofrequency [place] [facility] [place] of [place] History of appendectomy History of colonoscopy History of cardioversion x4--last 07/24/22---follows with Dr. Romero also had 03/06/22, 11/2021 and 01/2018 S/P ovarian cystectomy Family History Grandfather Family hx of colon cancer Family/Other Family history of diabetes mellitus Other No family history of adverse response to anesthesia Social History Smoking Status: Former smoker Tobacco Type: Cigarettes Second Hand Exposure: No; Do You Dip or Chew Tobacco: No; Hx Alcohol Use: No Hx Substance Use: No Preferred Language: Greenlandic Communication Ability: Impaired Communication Ability Comment: pt mostly nonverbal Floor Worker Required: Voice Beliefs That Will Affect Care: None Current Living Situation: [facility] Current Living Situation Comment: [facility] Feels Safe at Home: Yes Assistive Devices: Cane Review of Systems Review of Systems: Other (Comprehensive review of systems unobtainable due to the patient's expressive aphasia) Physical Exam Constitutional: + ill appearing Respiratory: normal respiratory effort, lungs clear to auscultation Cardiovascular: Rate/Rhythm: + bradycardic Heart Sounds: normal S1 and normal S2; no murmur Extremities: no edema Gastrointestinal (Abdomen): Percussion/Palpation: + abdomen tender and abdomen soft Neurologic: PERRL, EOMI, accommodation nl, no face palsy, no dysarthria Results & Data Vital Signs (Past 12 Hours) Vital Signs Temp Pulse Pulse Pulse Resp BP BP 10/09/23 11:44 36.7 C 46 L 16 134/78 10/09/23 07:56 36.7 C 42 L 16 121/71 10/09/23 05:52 42 L 10/09/23 03:43 36.0 C L 45 L 16 110/68 10/09/23 00:52 44 L Pulse Ox O2 Del Method 10/09/23 11:44 97 Room Air 10/09/23 07:56 95 Room Air 10/09/23 05:52 10/09/23 03:43 93 Room Air 10/09/23 00:52 Laboratory Results Cardiac Enzymes 10/08/23 10/09/23 Range/Units 21:30 08:55 AST 36 (13-39) U/L Troponin I High Sens 12.0 11.6 (0-14) pg/ml Coagulation 10/09/23 Range/Units 08:55 PT 18.7 H (9.0-12.0) Seconds INR 1.8 Comprehensive Metabolic Panel 10/09/23 Range/Units 08:55 Sodium 141 (136-145) mmol/L Potassium 4.0 (3.5-5.1) mmol/L Chloride 108 H (98-107) mmol/L Carbon Dioxide 25 (21-32) mmol/L BUN 4 L (6-23) mg/dl Creatinine 0.76 (0.6-1.2) mg/dl Glucose 128 H (70-99(Fasting)) mg/dl Calcium 8.8 (8.6-10.3) mg/dl Direct Bilirubin 0.1 (0-0.2) mg/dl AST 36 (13-39) U/L ALT 46 (7-52) U/L Alkaline Phosphatase 50 (34-104) U/L Total Protein 6.1 (6.0-8.3) gm/dl Albumin 3.6 (3.4-5.0) gm/dl Intake and Output 10/08/23 10/09/23 10/09/23 22:59 06:59 14:59 Intake Total 170.766 / 3600.751 2444 / 1869.500 Balance 170.766 / 5445.435 8450 / 1869.500 Intake: IV 170.766 / 8995.431 5385 / 1869.500 D5w and Nss 1,000 ml @ 80 mls/ 1000 / 1000 hr IV .[id number] LYLY Rx#:[id number] Heparin Sodium/Dextrose 25,000 170.766 / 334.833 0 / 334.833 units In 500 ml @ 0 UNITS/HR IV .Q0M LYLY Rx#:[id number] Other: # Unmeasured Voids 1
--- NOTE | 2023-10-09 12:57 | Hospitalist Progress Note ---
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 Cholelithiasis with sludge Chronic Abdominal Pain Proctitis In ER patient afebrile, vitals stable. No leukocytosis. T bili: 0.8, AST: 43, ALT: 65, Alk phos 62 Lipase 23. All improved compared to prior. Pt indicating right sided pelvic and groin pain as well Care complicated by pt's inability to describe her symptoms UA unremarkable Lipase normal Gallbladder US this admission: 1. Cholelithiasis with mild gallbladder distention. Sonographic Clark sign reported by the technologist. The findings are equivocal for acute cholecystitis given similar findings on ultrasound of October 01, 2023. If indicated, a repeat nuclear medicine hepatobiliary scan could be obtained. 2. No change in minimal dilatation of the common bile duct. KUB noting small stool burden, nonobstructive bowel gas pattern. Hernia US with no visible hernia Repeat CT abd/pelvis noting fluid filled colon but no acute findings. CT abd/pelvis from 10/02 noted concern for proctitis HIDA scan repeated, once again negative for acute cholecystitis but noted " Delayed visualization of small bowel activity. This is a nonspecific finding which could be due to gallbladder dysfunction, sphincter dysfunction or less l ikely partial common bile duct obstruction. This could be correlated with obstructive liver function tests." General Surgery consulted, appreciate recs. Recommending the following at this time: -if HIDA positive: "would recommend consideration for Axios stent placement potentially vs transfer to a tertiary center with neurosurgery availability for intervention due to her high stroke risk." -further recs pending after repeat HIDA GI consulted, appreciate recs -recommending MRCP, pt NPO Continue PRN IV pain meds, antiemetics, bentyl TID Continue IVF with dextrose (see below with episodes of hypoglycemia) Continue Augmentin course for previous proctitis Pt with bowel regimen on board Advance diet as tolerated Trend liver enzymes ESR, CRP normal Possible effect from home mounjaro use? Possible mesenteric ischemia? consider CTA abdomen/pelvis Follow MRCP Continue to monitor Sinus pauses Junctional Rhythm Sinus pause >2s noted overnight on 10/07 EKG noting the junctional rhythm Tropx2 wnl Cardiology consulted, appreciate recs. Noted or stated the following: "Question if the bradycardia with regards to junctional rhythm is due to high vagal tone with persistent abdominal discomfort at the time of my assessment. Continue amiodarone 200 mg p.o. daily for now." Continue to monitor on telemetry Atrial fibrillation HLD On amiodarone Anticoagulated on warfarin: home regimen: 4 mg Sun, , Ashwini, Sat and 2 mg on MWF INR subtherapeutic, bridging with IV heparin, holding home warfarin in case procedure needed Hypoglycemia Pt with episodes of hypoglycemia on 10/07 Not currently eating as much due to abd pain d5w added to fluids Holding insulin sliding scale Currently resolved HTN Pt with episodes of very high blood pressures Lowers after IV pain meds Likely in setting of acute pain Continue home losartan CVA (cerebral vascular accident): History CVA with residual expressive aphasia Patient has tablet to assist in communication, sometimes gets frustrated Fall precautions On atorvastatin 80mg at home. Initially held on admission, will continue at 40mg dose and closely monitor hepatic enzymes Seizure disorder: Denies recent seizure like activity Continue levetiracetam COPD Asthma No signs of exacerbation On Nucala Continue home inhalers, montelukast. Albuterol neb prn DM II A1c: 5.8 on 10/02/23 Hold home metformin, Mounjaro Novolog sliding scale correction per protocol, currenlty on hold in setting of hypoglycemia Resume once pt taking adequate po Depression Chronic, stable Continue bupropion DVT ppx: on IV heparin FEN/GI: NPO for MRCP, clear liquid diet once eating once more Dispo: PT/OT once medically stable Admission and Anticipated Discharge Date Admission Date: October 07, 2023 Subjective pt was seen laying in bed. At the time noting she was still having the abdominal pain. Review of Systems Review of Systems: All systems reviewed & are unremarkable except as noted in Subjective Physical Exam Physical Exam: General: Alert Skin: No noted rashes or bruises Psych: tearful mood and affect Neuro: expressive aphasia HEENT: NC/AT CV: RRR Resp: Breath sounds clear bilaterally, no increased effort of breathing Abdomen: Soft, tender diffusely but especially in right quadrants Extremities: No edema in lower extremities bilaterally. Results & Data Results & Data Vital Signs (Past 12 Hours) Vital Signs Temp Pulse Pulse Pulse Resp BP BP 10/09/23 11:44 36.7 C 46 L 16 134/78 10/09/23 07:56 36.7 C 42 L 16 121/71 10/09/23 05:52 42 L 10/09/23 03:43 36.0 C L 45 L 16 110/68 Pulse Ox O2 Del Method 10/09/23 11:44 97 Room Air 10/09/23 07:56 95 Room Air 10/09/23 05:52 10/09/23 03:43 93 Room Air
[2023-10-09] MEDS: DICYCLOMINE HCL 10 MG CAP PO ONE (13:49)
[2023-10-09 15:09] LABS: Basophils # (auto) 0.04 K/uL (0.00-0.20); Basophils % (auto) 0.6 %; Eosinophils # (auto) 0.03 K/uL (0.00-0.50); Eosinophils % (auto) 0.4 %; Hematocrit (blood only) 40.7 % (37.0-47.0); Hemoglobin 13.1 g/dl (12.0-16.0); Immature Granulocytes # (auto) 0.03 K/uL (0.01-0.20); Immature Granulocytes % (auto) 0.4 %; Lymphocytes # (auto) 1.54 K/uL (1.20-3.40); Lymphocytes % (auto) 21.5 %; Mean Corpuscular Hemoglobin 30.3 pg (25.0-34.0); Mean Corpuscular Hgb Conc 32.2 g/dL (32.0-36.0); Mean Corpuscular Volume 94.2 fL (80.0-100.0); Mean Platelet Volume 9.8 fL (9.4-12.4); Monocytes # (auto) 0.94 K/uL (0.11-0.59); Monocytes % (auto) 13.1 %; Neutrophils # (auto) 4.59 K/uL (1.40-6.50); Platelet Count 251 K/uL (130-400); RDW Coefficient of Variation 14.8 % (11.5-14.5); RDW Standard Deviation 51.7 fL (36.4-46.3); Red Blood Count 4.32 M/uL (4.20-5.40); White Blood Count 7.17 K/ul (4.8-10.8)
[2023-10-09] MEDS: DICYCLOMINE HCL 10 MG CAP PO SCH (20:27)
[2023-10-10 06:58] LABS: Basophils # (auto) 0.03 K/uL (0.00-0.20); Basophils % (auto) 0.6 %; Eosinophils # (auto) 0.05 K/uL (0.00-0.50); Hematocrit (blood only) 36.2 % (37.0-47.0); Hemoglobin 11.7 g/dl (12.0-16.0); Immature Granulocytes # (auto) 0.02 K/uL (0.01-0.20); Immature Granulocytes % (auto) 0.4 %; Lymphocytes # (auto) 1.54 K/uL (1.20-3.40); Lymphocytes % (auto) 30.6 %; Mean Corpuscular Hgb Conc 32.3 g/dL (32.0-36.0); Mean Corpuscular Volume 95.8 fL (80.0-100.0); Mean Platelet Volume 9.7 fL (9.4-12.4); Monocytes # (auto) 0.56 K/uL (0.11-0.59); Monocytes % (auto) 11.1 %; Neutrophils # (auto) 2.83 K/uL (1.40-6.50); Neutrophils % (auto) 56.3 %; Platelet Count 196 K/uL (130-400); RDW Coefficient of Variation 14.8 % (11.5-14.5); Red Blood Count 3.78 M/uL (4.20-5.40); White Blood Count 5.03 K/ul (4.8-10.8)
[2023-10-10 07:11] LABS: Albumin Globulin Ratio 1.5 (0.9-2); Albumin Level 3.3 gm/dl (3.4-5.0); BUN Creatinine Ratio 4.3 (10-20); Bilirubin,Total 0.4 mg/dl (0.2-1.0); Calcium 8.6 mg/dl (8.6-10.3); Creatinine Clr Calc Pharmacy 73.8 ml/min; Est GFR (African American) 102.5 ml/min; Est GFR (Non-African American) 88.4 ml/min; Globulin 2.2 gm/dl (2.5-4.0); Magnesium 1.7 mg/dl (1.7-2.4); Phosphorus 3.3 mg/dl (2.5-4.9); Potassium 3.6 mmol/L (3.5-5.1); Total Protein 5.5 gm/dl (6.0-8.3)
[2023-10-10 07:18] LABS: Prothrombin Time 20.1 Seconds (9.0-12.0)
--- NOTE | 2023-10-10 07:39 | Magnetic Resonance Report ---
MRCP CLINICAL HISTORY: abnormal HIDA, elevated ast/alt TECHNIQUE: Utilizing a 1.5 Deb magnet and dedicated coil, multiplanar, multiecho imaging of the [facility] er abdomen was performed utilizing heavily T2 weighted pulsing sequences without IV contrast. COMPARISON STUDY: CT of the abdomen and pelvis, right upper quadrant ultrasound and hepatobiliary sc an October 08, 2023. FINDINGS: No intra or extrahepatic biliary ductal dilatation is identified. This exam is mildly compr omised by motion artifact. However, no common bile duct calculi are identified. Gallbladder distentio n is unchanged. There is no pericholecystic fluid. No evidence for gallbladder wall thickening. The s mall gallstone shown on CT are not evident by MRI, likely due to motion artifact. No hepatic lesions are identified on unenhanced exam. Spleen, adrenal glands and kidneys are unremarkable. There is no a bdominal lymphadenopathy or ascites. IMPRESSION: 1. No biliary ductal dilatation. No common bile duct calculi identified. Exam mildly compromised by m otion artifact. 2. No change in gallbladder distention. No pericholecystic fluid or gallbladder wall thickening. Smal l gallstones within the gallbladder shown on CT are not well-visualized by MRI. ACT 112: Negative or not required by law. Electronically signed by: Pelon Osuna M.D. 10/10/2023 7:37 AM
[2023-10-10 08:58] VITALS: RESP 20; O2SAT 96
--- NOTE | 2023-10-10 09:06 | Gastroenterology Progress Note ---
Date of Service October 10, 2023 Assessment & Plan (1) Abdominal pain: Plan 68 year old female with history of CVA with residual expressive aphasia, HTN, HLD, CAD, atrial fibrillation anticoagulated on warfarin, pulmonary hypertension, T2DM, asthma, COPD, LILI, seizure disorder, depression, anxiety re- admitted with abdominal pain and nausea, imaging showing gallstones with mild gallbladder distention. She was admitted last week, HIDA at that time without A repeat HIDA scan shows delayed visualization of small bowel activity, mild AST/ALT elevation but normal Tbili, lipase 23, no leukocytosis. LFTs have returned within normal range, no acute findings on MRCP, she notes pain is improving and she is tolerating diet - perhaps she passed a stone. No GI contraindication to diet Continue to follow clinically No apparent indication for transfer to a biliary capable center Trend LFTs Antiemetics PRN Analgesia PRN Recall GI as needed. Thank you for allowing us to participate in the care of this patient. Please call with any acute changes, questions or concerns. Please see addendum below with additional recommendation from my supervising physician. I spent a total of 40 minutes on the date of service in review of patient's record, and previously obtained information in person and appropriate medical visit, discussion and education of plan, with patient and/or caregiver, placing orders for tests/referral/procedures as medically necessary and documentation of pertinent clinical information in patient's medical records for their visit today. Admission and Anticipated Discharge Date Admission Date: October 07, 2023 Supervising Physician Co-Signing Physician Notes I personally saw and examined the patient. I have reviewed the chart and agree with the documentation provided by the [employer] including discussion about the assessment, treatment and plan. Briefly, 68 year old female with history of CVA with residual expressive aphasia, HTN, HLD, CAD, atrial fibrillation anticoagulated on warfarin, pulmonary hypertension, T2DM, asthma, COPD, LILI, seizure disorder, depression, anxiety re-admitted with abdominal pain and nausea, imaging showing gallstones with mild gallbladder distention. She was admitted last week, HIDA at that time without A repeat HIDA scan shows delayed visualization of small bowel activity, mild AST/ALT elevation but normal Tbili, lipase 23, no leukocytosis. LFTs have returned within normal range, no acute findings on MRCP, she notes pain is improving and she is tolerating diet - perhaps she passed a stone. Doing much better. Passed stone likely. Suggest outpt [facility] in [place] given neurologic issues. Subjective Pt was seen and evaluated, chart reviewed. Sitting upright in bed. Tolerating breakfast. Denies nausea, vomiting. Has had intermittent tenderness of upper abdomen. MRCP 2023: No biliary ductal dilatation. No common bile duct calculi identified. Exam mildly compromised by motion artifact. No change in gallbladder distention. No pericholecystic fluid or gallbladder wall thickening. Small gallstones within the gallbladder shown on CT are not well-visualized by MRI. Review of Systems Review of Systems: All other findings negative except as noted in HPI. Physical Exam Constitutional: WD/WN, vitals as above Respiratory: normal respiratory effort; no respiratory distress Cardiovascular: Rate/Rhythm: regular rate and regular rhythm Gastrointestinal (Abdomen): Inspection/Auscultation: normal bowel sounds Percussion/Palpation: + abdomen tender and abdomen soft; no guarding and abdomen not rigid Skin: no rashes, warm and dry Results & Data Results & Data Vital Signs (Past 12 Hours) Vital Signs Temp Pulse Pulse Pulse Resp BP BP 10/10/23 08:57 36.5 C 57 L 20 126/77 10/10/23 03:51 36.5 C 66 18 163/75 H 10/10/23 01:25 41 L 10/09/23 23:39 36.6 C 70 16 166/74 H Pulse Ox O2 Del Method 10/10/23 08:57 96 Room Air 10/10/23 03:51 97 Room Air 10/10/23 01:25 10/09/23 23:39 96 Room Air Laboratory Results 10/10/23 10/10/23 10/09/23 Range/Units 08:12 06:32 20:08 WBC 5.03 (4.8-10.8) K/ul RBC 3.78 L (4.20-5.40) M/uL Hgb 11.7 L (12.0-16.0) g/dl Hct 36.2 L (37.0-47.0) % MCV 95.8 (80.0-100.0) fL MCH 31.0 (25.0-34.0) pg MCHC 32.3 (32.0-36.0) g/dL RDW Std Deviation 52.0 H (36.4-46.3) fL RDW Coeff of Yeyo 14.8 H (11.5-14.5) % Plt Count 196 (130-400) K/uL MPV 9.7 (9.4-12.4) fL Immature Gran % (Auto) 0.4 % Neut % (Auto) 56.3 % Lymph % (Auto) 30.6 % Wright % (Auto) 11.1 % Eos % (Auto) 1.0 % Baso % (Auto) 0.6 % Neut # (Auto) 2.83 (1.40-6.50) K/uL Lymph # (Auto) 1.54 (1.20-3.40) K/uL Wright # (Auto) 0.56 (0.11-0.59) K/uL Eos # (Auto) 0.05 (0.00-0.50) K/uL Baso # (Auto) 0.03 (0.00-0.20) K/uL Immature Gran # (Auto) 0.02 (0.01-0.20) K/uL ESR (0-30) mm/hr PT 20.1 H (9.0-12.0) Seconds INR 2.0 H (0.9-1.1) Heparin Anti-Xa, Unfract 0.50 (0.3-0.7) IU/ml Sodium 142 (136-145) mmol/L Potassium 3.6 (3.5-5.1) mmol/L Chloride 110 H (98-107) mmol/L Carbon Dioxide 25 (21-32) mmol/L Anion Gap 7 (3-11) BUN 3 L (6-23) mg/dl Creatinine 0.70 (0.6-1.2) mg/dl Est Cr Clr Drug Dosing 73.8 ml/min Est GFR ( Amer) 102.5 ml/min Est GFR (Non-Af Amer) 88.4 ml/min BUN/Creatinine Ratio 4.3 L (10-20) Glucose 89 (70-99(Fasting)) mg/dl POC Glucose 80 183 H (70-99) mg/dl Calcium 8.6 (8.6-10.3) mg/dl Phosphorus 3.3 (2.5-4.9) mg/dl Magnesium 1.7 (1.7-2.4) mg/dl Total Bilirubin 0.4 (0.2-1.0) mg/dl Direct Bilirubin (0-0.2) mg/dl AST 29 (13-39) U/L ALT 36 (7-52) U/L Alkaline Phosphatase 46 (34-104) U/L Troponin I High Sens (0-14) pg/ml C-Reactive Protein (0-0.5) mg/dl Total Protein 5.5 L (6.0-8.3) gm/dl Albumin 3.3 L (3.4-5.0) gm/dl Globulin 2.2 L (2.5-4.0) gm/dl Albumin/Globulin Ratio 1.5 (0.9-2) Lyme Disease Screen (Negative) 10/09/23 10/09/23 10/09/23 Range/Units 16:44 14:42 12:02 WBC 7.17 (4.8-10.8) K/ul RBC 4.32 (4.20-5.40) M/uL Hgb 13.1 (12.0-16.0) g/dl Hct 40.7 (37.0-47.0) % MCV 94.2 (80.0-100.0) fL MCH 30.3 (25.0-34.0) pg MCHC 32.2 (32.0-36.0) g/dL RDW Std Deviation 51.7 H (36.4-46.3) fL RDW Coeff of Yeyo 14.8 H (11.5-14.5) % Plt Count 251 (130-400) K/uL MPV 9.8 (9.4-12.4) fL Immature Gran % (Auto) 0.4 % Neut % (Auto) 64.0 % Lymph % (Auto) 21.5 % Wright % (Auto) 13.1 % Eos % (Auto) 0.4 % Baso % (Auto) 0.6 % Neut # (Auto) 4.59 (1.40-6.50) K/uL Lymph # (Auto) 1.54 (1.20-3.40) K/uL Wright # (Auto) 0.94 H (0.11-0.59) K/uL Eos # (Auto) 0.03 (0.00-0.50) K/uL Baso # (Auto) 0.04 (0.00-0.20) K/uL Immature Gran # (Auto) 0.03 (0.01-0.20) K/uL ESR (0-30) mm/hr PT (9.0-12.0) Seconds INR (0.9-1.1) Heparin Anti-Xa, Unfract (0.3-0.7) IU/ml Sodium (136-145) mmol/L Potassium (3.5-5.1) mmol/L Chloride (98-107) mmol/L Carbon Dioxide (21-32) mmol/L Anion Gap (3-11) BUN (6-23) mg/dl Creatinine (0.6-1.2) mg/dl Est Cr Clr Drug Dosing ml/min Est GFR ( Amer) ml/min Est GFR (Non-Af Amer) ml/min BUN/Creatinine Ratio (10-20) Glucose (70-99(Fasting)) mg/dl POC Glucose 112 H 123 H (70-99) mg/dl Calcium (8.6-10.3) mg/dl Phosphorus (2.5-4.9) mg/dl Magnesium (1.7-2.4) mg/dl Total Bilirubin (0.2-1.0) mg/dl Direct Bilirubin (0-0.2) mg/dl AST (13-39) U/L ALT (7-52) U/L Alkaline Phosphatase (34-104) U/L Troponin I High Sens (0-14) pg/ml C-Reactive Protein (0-0.5) mg/dl Total Protein (6.0-8.3) gm/dl Albumin (3.4-5.0) gm/dl Globulin (2.5-4.0) gm/dl Albumin/Globulin Ratio (0.9-2) Lyme Disease Screen (Negative) 10/09/23 Range/Units 08:55 WBC (4.8-10.8) K/ul RBC (4.20-5.40) M/uL Hgb (12.0-16.0) g/dl Hct (37.0-47.0) % MCV (80.0-100.0) fL MCH (25.0-34.0) pg MCHC (32.0-36.0) g/dL RDW Std Deviation (36.4-46.3) fL RDW Coeff of Yeyo (11.5-14.5) % Plt Count (130-400) K/uL MPV (9.4-12.4) fL Immature Gran % (Auto) % Neut % (Auto) % Lymph % (Auto) % Wright % (Auto) % Eos % (Auto) % Baso % (Auto) % Neut # (Auto) (1.40-6.50) K/uL Lymph # (Auto) (1.20-3.40) K/uL Wright # (Auto) (0.11-0.59) K/uL Eos # (Auto) (0.00-0.50) K/uL Baso # (Auto) (0.00-0.20) K/uL Immature Gran # (Auto) (0.01-0.20) K/uL ESR 25 (0-30) mm/hr PT 18.7 H (9.0-12.0) Seconds INR 1.8 H (0.9-1.1) Heparin Anti-Xa, Unfract 0.62 (0.3-0.7) IU/ml Sodium 141 (136-145) mmol/L Potassium 4.0 (3.5-5.1) mmol/L Chloride 108 H (98-107) mmol/L Carbon Dioxide 25 (21-32) mmol/L Anion Gap 8 (3-11) BUN 4 L (6-23) mg/dl Creatinine 0.76 (0.6-1.2) mg/dl Est Cr Clr Drug Dosing 67.9 ml/min Est GFR ( Amer) 92.8 ml/min Est GFR (Non-Af Amer) 80.0 ml/min BUN/Creatinine Ratio 5.3 L (10-20) Glucose 128 H (70-99(Fasting)) mg/dl POC Glucose (70-99) mg/dl Calcium 8.8 (8.6-10.3) mg/dl Phosphorus 3.3 (2.5-4.9) mg/dl Magnesium 1.9 (1.7-2.4) mg/dl Total Bilirubin 0.5 (0.2-1.0) mg/dl Direct Bilirubin 0.1 (0-0.2) mg/dl AST 36 (13-39) U/L ALT 46 (7-52) U/L Alkaline Phosphatase 50 (34-104) U/L Troponin I High Sens 11.6 (0-14) pg/ml C-Reactive Protein < 0.50 (0-0.5) mg/dl Total Protein 6.1 (6.0-8.3) gm/dl Albumin 3.6 (3.4-5.0) gm/dl Globulin 2.5 (2.5-4.0) gm/dl Albumin/Globulin Ratio 1.4 (0.9-2) Lyme Disease Screen Negative (Negative) PG Care Time/CCT Total # of Minutes Spent Total Time Spent with Patient: Total time spent is greater than 50% in coordination of care (as documented) at patient's floor/unit and/or counseling patient: Coding Level of Care Code 97921 SUB INP/OBS CARE 2/35MIN Diagnoses Abdominal pain R10.9 Abdominal location: unspecified location (1) Abdominal pain Abdominal location: unspecified location Qualified Code(s): R10.9 - Unspecified abdominal pain
[2023-10-10 11:37] VITALS: TEMP 97.5
--- NOTE | 2023-10-10 12:24 | Cardiology Progress Note ---
Date of Service October 10, 2023 Assessment & Plan (1) Junctional rhythm: (2) Paroxysmal atrial fibrillation: Plan: Repeat EKG to document sinus rhythm. Most recent blood pressure measurement of 182/80 is high, but overall her trends have been much better than that. Continue losartan 50 mg daily. Continue amiodarone 200 mg by mouth daily for rate and rhythm control. Question of junctional rhythm with a combination of her underlying conduction system disease and high vagal tone. No indication for pacemaker at present. MRCP without abnormality. The patient remains on a heparin bridge, INR today 2.0, can likely discontinue the heparin bridge especially if no invasive procedures are planned. Cardiology updates discussed with patient's daughter, Dr. Enid Don. I agree with Dr Don's thoughts that perhaps patient is having abdominal discomfort as a manifestation of a side effect of her GLP-1 agonist and I think would be reasonable to continue to hold this medication. Admission and Anticipated Discharge Date Admission Date: October 07, 2023 Subjective Patient seen in cardiology follow-up. She certainly appears more comfortable today. Subjective review of systems complicated by her expressive aphasia. Telemetry reveals sinus rhythm in the mid 60s which has replaced the previous finding of a junctional rhythm in the range of 44 to 50 bpm which had been noted yesterday. 3 pauses were observed last night at 3:36 AM while patient was sleeping, in the range of 3.1 seconds each. Physical Exam Constitutional: not ill appearing Eyes: PERRL, conjunctivae normal, anicteric sclerae Respiratory: normal respiratory effort, lungs clear to auscultation Cardiovascular: Rate/Rhythm: + bradycardic Heart Sounds: normal S1 and normal S2; no murmur Extremities: no edema Gastrointestinal (Abdomen): Percussion/Palpation: + abdomen tender and abdomen soft Neurologic: PERRL, EOMI, accommodation nl, no face palsy, no dysarthria Results & Data Vital Signs (Past 12 Hours) Vital Signs Temp Pulse Pulse Resp BP BP Pulse Ox 10/10/23 11:36 36.4 C L 63 20 182/80 H 96 10/10/23 10:26 56 L 10/10/23 08:57 36.5 C 57 L 20 126/77 96 10/10/23 03:51 36.5 C 66 18 163/75 H 97 10/10/23 01:25 41 L O2 Del Method 10/10/23 11:36 Room Air 10/10/23 10:26 10/10/23 08:57 Room Air 10/10/23 03:51 Room Air 10/10/23 01:25
[2023-10-10 13:23] LABS: ANTI-Xa, UFH(UnfractionatedHep 0.55 IU/ml (0.3-0.7)
--- NOTE | 2023-10-10 14:50 | Electrocardiogram Report ---
Test Reason : Blood Pressure : */* mmHG Vent. Rate : 59 BPM Atrial Rate : 59 BPM P-R Int : 230 ms QRS Dur : 122 ms QT Int : 502 ms P-R-T Axes : 71 109 42 degrees QTcB Int : 496 ms Sinus bradycardia with 1st degree A-V block Rightward axis Non-specific intra-ventricular conduction delay Borderline ECG When compared with ECG of 08-Oct-2023 19:55, Sinus rhythm has replaced Junctional rhythm Nonspecific T wave abnormality, improved in Inferior leads Nonspecific T wave abnormality no longer evident in Anterolateral leads QT has lengthened Confirmed by Alberto Stearns ([id number]) on 10/10/2023 2:50:40 PM Referred By: REFERRED SELF Confirmed By: Alberto Stearns
[2023-10-10 15:22] VITALS: BP 145/67; PULSE 63
--- NOTE | 2023-10-10 15:24 | Discharge Summary ---
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 with worsening abdominal pain. Cholelithiasis with sludge Chronic Abdominal Pain Proctitis In ER patient afebrile, vitals stable. No leukocytosis. T bili: 0.8, AST: 43, ALT: 65, Alk phos 62 Lipase 23. All improved compared to prior. Pt indicating right sided pelvic and groin pain as well Care complicated by pt's inability to describe her symptoms due to expressive aphasia UA unremarkable Lipase normal Gallbladder US this admission: 1. Cholelithiasis with mild gallbladder distention. Sonographic Clark sign reported by the technologist. The findings are equivocal for acute cho lecystitis given similar findings on ultrasound of October 01, 2023. If indicated, a repeat nuclear medicine hepatobiliary scan could be obtained. 2. No change in minimal dilatation of the common bile duct. KUB noting small stool burden, nonobstructive bowel gas pattern. Hernia US with no visible hernia Repeat CT abd/pelvis noting fluid filled colon but no acute findings. CT abd/pelvis from 10/02 during previous admission noted concern for proctitis HIDA scan repeated, once again negative for acute cholecystitis but noted " Delayed visualization of small bowel activity. This is a nonspecific finding which could be due to gallbladder dysfunction, sphincter dysfunction or less likely partial common bile duct obstruction. This could be correlated with obstructive liver function tests." General Surgery consulted, appreciate recs. Recommending the following at this time: -if HIDA positive: "would recommend consideration for Axios stent placement potentially vs transfer to a tertiary center with neurosurgery availability for intervention due to her high stroke risk." - repeat HIDA was negative -per General Surgery on day of discharge, "If she becomes unable to eat or function as usual due to pain, I would recommend removal of the gallbladder at a tertiary care center w neuro presence due to significant stroke risk. She could also follow up w [facility] for this as outpatient considering on going symptoms here." GI consulted, appreciate recs -recommended MRCP -MRCP with no acute findings -GI recommended/stated the following on discharge: "LFTs have returned within normal range, no acute findings on MRCP, she notes pain is improving and she is tolerating diet - perhaps she passed a stone. Doing much better. Passed stone likely. Suggest outpt choley in [place] given neurologic issues." Treated with PRN pain meds, antiemetics, bentyl TID Also IVF with dextrose (see below with episodes of hypoglycemia) Continued Augmentin course for previous proctitis, discharged to take 4 more doses Pt with bowel regimen on board, continue daily miralax and colace scheduled while on narcotics Advance diet as tolerated Trend liver enzymes. LFTs normal on discharge ESR, CRP normal Possible effect from home mounjaro use? Mounjaro discontinued on discharge. Please ensure follow up with General Surgery and Gastroenterology after discharge PCP follow up as well Sinus pauses Junctional Rhythm Sinus pause >2s noted overnight on 10/07 and on 0 EKG noting a junctional rhythm Tropx2 wnl Cardiology consulted, appreciate recs. Noted or stated the following: "Question if the bradycardia with regards to junctional rhythm is due to high vagal tone with persistent abdominal discomfort at the time of my assessment. Continue amiodarone 200 mg p.o. daily for now." Per Cardiology on day of discharge: "Repeat EKG to document sinus rhythm. Most recent blood pressure measurement of 182/80 is high, but overall her trends have been much better than that. Continue losartan 50 mg daily. Continue amiodarone 200 mg by mouth daily for rate and rhythm control. Question of junctional rhythm with a combination of her underlying conduction system disease and high vagal tone. No indication for pacemaker at present." Please ensure close follow up with Cardiology. Atrial fibrillation HLD On amiodarone Anticoagulated on warfarin: home regimen: 4 mg Sun, Tu, Ashwini, Sat and 2 mg on MWF INR was subtherapeutic, bridged with IV heparin, held home warfarin in case procedure needed. On day of discharge, INR of 2. Continue home warfarin after discharge PCP and coumadin clinic followup after discharge Hypoglycemia Pt with episodes of hypoglycemia on 10/07 Not currently eating as much due to abd pain d5w added to fluids, on clear liquid diet Currently resolved HTN Pt with episodes of very high blood pressures Lowers after IV pain meds Likely in setting of acute pain Continue home losartan CVA (cerebral vascular accident): History CVA with residual expressive aphasia Patient has tablet to assist in communication, sometimes gets frustrated Fall precautions On atorvastatin 80mg at home. Initially held on admission, will continue at 40mg dose and closely monitor hepatic enzymes Confirmed with Cardiology, discharge on atorvastatin 40mg daily Seizure disorder: Denies recent seizure like activity Continue levetiracetam COPD Asthma No signs of exacerbation On Nucala Continue home inhalers, montelukast. Albuterol neb prn DM II A1c: 5.8 on 10/02/23 Held home metformin, Mounjaro Novolog sliding scale correction per protocol, currently on hold in setting of hypoglycemia Resume home metformin, discontinue mounjaro as a possible cause of abdominal pain Depression Chronic, stable Continue bupropion Notes For Next Care Provider Please ensure followup with Gastroenterology Please ensure followup with General Surgery Please ensure followup with Cardiology Please discontinue use of mounjaro as possible cause of abdominal pain Avoid tylenol with elevated LFTs, statin dose decreased to 40mg. Continue to monitor. LFTS all normal on discharge. Medication Changes From Visit Per Cardiology: Atorvastatin 40mg daily Bentyl 10mg TID scheduled Zofran 4mg q8h PRN for nausea oxycodone 5mg q4h prn for pain Admission HPI Per Admitting Provider 68-year-old female with PMH CVA with residual expressive aphasia and hemiparesis, HTN, HLD, CAD, atrial fibrillation anticoagulated on warfarin, pulmonary hypertension, DM II, asthma, COPD, LILI, depression, anxiety who presented to ER from [facility]. She was just admitted to the facility from 09/30-10/04 for confusion, chest discomfort which was attempted to be communicated through hitting her chest due to expressive aphasia, nausea. Possible acute cholecystitis was ruled out with a HIDA scan and was evaluated by General Surgery during that time. She also had mildly bumped troponin which trended downward. Today she reports her Abdominal pain has continued to be severe with associated nausea, gas, diarrhea. She denies any blood in diarrhea. Patient states that she has tolerated minimal p.o. intake due to nausea and abdominal discomfort. Denies any fevers, chills or sweats. She denies any cardiac complaints, chest tightness or chest pain. She has not yet received any pain medication or antiemetics in the ER and is requesting some. Admission Exam Per Admitting Provider General: awake, alert, no apparent distress, + expressive aphasia requiring yes or no questions and use of tablet for help with communication. Head: Normocephalic, atraumatic ENT: PERRL, EOMI, no pharyngeal exudate, mucous membranes moist Chest: + Faint wheezing with rales, on room air, O2 sats ~92 %, no rhonchi Cardiac: irregularly irregular, rate controlled, + murmur, no JVD, normal peripheral pulses, good capillary refill Abdominal: + hyperactive BS x 4 quadrants, soft, nondistended, +tender to palpation mid abdomen and suprapubically with facial grimacing, no rebound or gu arding Extremities: + multiple areas of ecchymosis over arms, normal inspection, no peripheral edema or erythema, calfs nontender to palpation Psych: Normal mood and affect Neuro: AAO x 3, + expressive aphasia, no motor gross deficits, speech is garbled, pt is able to shake her head yes or no, she follows commands without difficulty. Discharge Exam General: Alert Skin: No noted rashes or bruises Psych: tearful mood and affect Neuro: expressive aphasia HEENT: NC/AT CV: RRR Resp: Breath sounds clear bilaterally, no increased effort of breathing Abdomen: Soft, tender diffusely but especially in right quadrants Extremities: No edema in lower extremities bilaterally. Updated Medication List Medication Instructions Recorded Confirmed Type fluticasone fur. 200 mcg-umeclid 1 inh inhalation QAM 01/23/23 10/07/23 History 62.5 mcg-vilant 25 mcg inhalat.powder (Trelegy Ellipta) losartan 50 mg tablet 50 mg PO QAM 01/23/23 10/07/23 History metformin 500 mg tablet 500 mg PO BID17 01/23/23 10/07/23 History montelukast 10 mg tablet 10 mg PO QAM 01/23/23 10/07/23 History albuterol sulfate 90 mcg/actuation 2 puff inhalation Q4H PRN 10/01/23 10/07/23 History aerosol inhaler SOB/WHEEZING amiodarone 200 mg tablet 200 mg PO QAM 10/01/23 10/07/23 History bupropion HCl 150 mg 24 hr tablet, 150 mg PO QAM 10/01/23 10/07/23 History extended release levetiracetam 1,000 mg tablet 1,000 mg PO Q12H 10/01/23 10/07/23 History (Keppra) mepolizumab 100 mg/mL subcutaneous 1 mg subcut Q4WK 10/01/23 10/07/23 History auto-injector (Nucala) potassium chloride 10 mEq 10 meq PO 3XWK 10/01/23 10/07/23 History tablet,extended release(part/cryst) warfarin 2 mg tablet 2 mg PO 3XWK 10/01/23 10/07/23 History warfarin 4 mg tablet 4 mg PO 4XWK 10/01/23 10/07/23 History amoxicillin 500 mg-potassium 1 tab PO BID 2 days #14 tabs 10/10/23 10/07/23 Rx clavulanate 125 mg tablet (Augmentin) atorvastatin 40 mg tablet 40 mg PO QAM #30 tabs 10/10/23 Rx dicyclomine 10 mg capsule 10 mg PO TID #90 caps 10/10/23 Rx docusate sodium 100 mg capsule 100 mg PO BID Constipation #60 caps 10/10/23 Rx (Colace) ondansetron 4 mg disintegrating 4 mg PO Q8H PRN nausea and 10/10/23 Rx tablet vomiting #30 tabs oxycodone 5 mg tablet 5 mg PO Q4H PRN pain #42 tabs 10/10/23 Rx polyethylene glycol 3350 17 17 g PO DAILY Constipation #119 10/10/23 Rx gram/dose oral powder (Miralax) grams Hospital Stay Data Consultations 10/07/23 16:46 ED Decision to Admit Stat 10/07/23 21:03 Consult General Surgery Routine 10/08/23 16:14 Consult Gastroenterology Routine 10/09/23 08:00 Consult Cardiology Routine Diagnostic Imagining Performed 10/07/23 14:17 US gallbladder Stat 10/08/23 US abdomen ltd hernia Routine 10/08/23 08:00 CT Abd and Pelvis [CT abd pelvis IV con only] Routine 10/09/23 09:40 MR MRCP Routine Gallbladder Ultrasound 10/07/23 14:17 US gallbladder CLINICAL HISTORY: Right upper quadrant abdominal pain. COMPARISON STUDY: Right upper quadrant ultrasound and nuclear medicine hepatobiliary scan October 01, 2023. CT of the abdomen and pelvis October 03, 2023. FINDINGS: No hepatic lesions are identified. Mild dilatation of the common bile duct measuring 7 mm is unchanged since ultrasound of October 01, 2023. Several gallstones within the gallbladder are noted. The gallbladder is distended, as before. Positive sonographic Clark sign was reported by the technologist. There is no gallbladder wall thickening. Mild right collecting system dilatation is unchanged. The pancreas is obscured. IMPRESSION: 1. Cholelithiasis with mild gallbladder distention. Sonographic Clark sign reported by the technologist. The findings are equivocal for acute cholecystitis given similar findings on ultrasound of October 01, 2023. If indicated, a repeat nuclear medicine hepatobiliary scan could be obtained. 2. No change in minimal dilatation of the common bile duct. ACT 112: Negative or not required by law. Electronically signed by: Pelon Osuna M.D. 10/07/2023 4:28 PM Chest/Abdomen X-ray 10/07/23 16:46 XR abdomen 2V w PA chest CLINICAL HISTORY: ? obs TECHNIQUE: 2 views of the abdomen were obtained. A single view of the chest was obtained. Comparison: None available at the time of this dictation. FINDINGS: No lines and tubes are seen. Calcified aortic knob is seen. The lungs are clear. No evidence of pleural effusion or pneumothorax. The osseous structures are grossly unremarkable. The bowel gas pattern is nonobstructive. Small stool burden is seen. IMPRESSION: Nonobstructive bowel gas pattern. ACT 112: Negative or not required by law. Electronically signed by: Chong Cook M.D. 10/07/2023 5:21 PM Abdomen Ultrasound 10/08/23 00:00 US abdomen ltd hernia CLINICAL HISTORY: Right inguinal/femoral hernia? inguinal/pelvic pain COMPARISON STUDY: CT of the abdomen and pelvis performed earlier today. TECHNIQUE: Sonography of the right groin was performed with and without stress maneuvers. FINDINGS: No right groin hernia was identified. No mass, fluid collection or other sonographic abnormality was identified. IMPRESSION: No right groin hernia identified. ACT 112: Negative or not required by law. Electronically signed by: Pelon Osuna M.D. 10/08/2023 10:54 AM Abdomen/Pelvis CT 10/08/23 08:00 CT OF THE ABDOMEN AND PELVIS WITH CONTRAST CLINICAL HISTORY: now pelvic/ right groin pain with abdominal pain COMPARISON STUDY: CT of the abdomen and pelvis October 03, 2023. Right upper quadrant ultrasound and abdominal series October 07, 2023. TECHNIQUE: Following IV administration of 93 mL of Optiray, axial images of the abdomen and pelvis were obtained from the lung bases to the proximal femurs. Images were reviewed in the axial, sagittal, and coronal planes. IV contrast was administered without complication. Automated exposure control was utilized for the study. A dose lowering technique was utilized adhering to the principles of ALARA. CT DOSE: 1147.47 mGy.cm FINDINGS: The heart is mildly enlarged. No pneumatosis, free air or portal venous gas is present. Gallbladder distention is similar to CT of October 03, 2023. There is no pericholecystic infiltration. There is layering hyperdense material within the gallbladder with small gallstones. No biliary or pancreatic ductal dilatation is present. Spleen, adrenal glands and pancreas are unremarkable. There is no hydronephrosis. There are no urinary calculi. A few subcentimeter renal lesions are too small to characterize but favor cysts. Major vasculature is patent. There is moderate aortic atherosclerotic plaque. Caliber and wall thickness of small and large bowel are normal. The colon is mildly fluid-filled. There is sigmoid diverticulosis without evidence for acute diverticulitis. There is no lymphadenopathy. No right groin abnormality is identified. Specifically, there is no groin hernia. There is no lymphadenopathy. IMPRESSION: 1. No bowel obstruction. No bowel wall thickening. Mildly fluid-filled colon. 2. No right groin abnormality identified. 3. Cholelithiasis. No change in gallbladder distention since CT of October 03, 2023. No pericholecystic infiltration. ACT 112: Negative or not required by law. Electronically signed by: Pelon Osuna M.D. 10/08/2023 9:17 AM Hepatobiliary Scan Nuclear Medicine 10/08/23 09:03 NUCLEAR MEDICINE HEPATOBILIARY SCAN CLINICAL HISTORY: Cholelithiasis. Gallbladder distention. COMPARISON: Hepatobiliary scan October 01, 2023. Right upper quadrant ultrasound October 07, 2023. CT of the abdomen and pelvis performed earlier today. TECHNIQUE: 5 mCi of technetium 99m Choletec IV was injected at 12:00 PM on October 08, 2023. Immediately following injection, imaging of the abdomen was carried out for 2 hours in the anterior projection. FINDINGS: Hepatic uptake of radiotracer is prompt and homogeneous. Activity is identified within the common bile duct at 15 minutes. Gallbladder activity is noted at 25 minutes. Imaging was carried out for 2 hours. No small bowel activity is identified. IMPRESSION: 1. No evidence for acute cholecystitis. 2. Delayed visualization of small bowel activity. This is a nonspecific finding which could be due to gallbladder dysfunction, sphincter dysfunction or less likely partial common bile duct obstruction. This could be correlated with obstructive liver function tests. ACT 112: Negative or not required by law. Electronically signed by: Pelon Osuna M.D. 10/08/2023 2:14 PM Cholangiopancreatography MRI 10/09/23 09:40 MRCP CLINICAL HISTORY: abnormal HIDA, elevated ast/alt TECHNIQUE: Utilizing a 1.5 Deb magnet and dedicated coil, multiplanar, multiecho imaging of the upper abdomen was performed utilizing heavily T2 weighted pulsing sequences without IV contrast. COMPARISON STUDY: CT of the abdomen and pelvis, right upper quadrant ultrasound and hepatobiliary scan October 08, 2023. FINDINGS: No intra or extrahepatic biliary ductal dilatation is identified. This exam is mildly compromised by motion artifact. However, no common bile duct calculi are identified. Gallbladder distention is unchanged. There is no pericholecystic fluid. No evidence for gallbladder wall thickening. The small gallstone shown on CT are not evident by MRI, likely due to motion artifact. No hepatic lesions are identified on unenhanced exam. Spleen, adrenal glands and kidneys are unremarkable. There is no abdominal lymphadenopathy or ascites. IMPRESSION: 1. No biliary ductal dilatation. No common bile duct calculi identified. Exam mildly compromised by motion artifact. 2. No change in gallbladder distention. No pericholecystic fluid or gallbladder wall thickening. Small gallstones within the gallbladder shown on CT are not well-visualized by MRI. ACT 112: Negative or not required by law. Electronically signed by: Pelon Osuna M.D. 10/10/2023 7:37 AM Pending Results Patient Have Any Pending Studies at Discharge: No Discharge Instructions Given to Patient (Per Discharging Provider) Kimberly, You presented with severe abdominal pain. You were seen by the university counselor and the general surgeon. No definite cause of your abdominal pain was determined after lots of testing. Gastroenterology is recommending that you follow up as an outpatient for further evaluation. General Surgery also recommends outpatient followup for further evaluation. Your primary care provider will help set up these appointments for you. You have an appointment with your primary care provider on October 15 at 3pm. Please joanne p this appointment as scheduled. We are discharging you home with pain medications. Please take the scheduled Bentyl three times a day and the oxycodone NEEDED every 4 hours for pain. We renewed your home stool softener and laxative which we recommend taking daily while you're on the narcotics for pain. Please advance your diet as tolerated to your home pureed/mildly thick diet. We recommend stopping your home Mounjaro as a possible cause of your pain and not using Tylenol which can cause further damage to your liver. We decreased your home atorvastatin to 40mg as well to help with that. We were also concerned about your heart. You were seen by the inventory control coordinator and they recommend close follow up after discharge. Please continue the Augmentin you were taking at home for 2 more days for the proctitis previously noted on imaging during your last admission. Again, please keep close follow up with your primary care provider after discharge. Please do not hesitate to come back to the emergency room if your symptoms worsen or return. It was a pleasure taking care of you while you were here. Total Time Total Time Spent Total Time Spent (In Minutes): 75
== END 2023-10-10 16:49 | disposition home or self-care (01) | DRG 445 ==
LOC: ED 14:06 → 2N 17:41